=== PATIENT | female | born 1940 | race Caucasian/White ===

== ENCOUNTER 2017-11-17 16:10 | Outpatient (REF) | payer MEDICARE, OTHER, SELFPAY | END 2017-11-17 16:30 | LOC: LBN 16:10 | PROVIDERS: PCP Family Medicine; Visit Provider Family Medicine | DX: R35.0 Frequency of micturition (principal) | CPT/HCPCS: 87086 ==

== ENCOUNTER 2018-02-20 09:48 | Outpatient (CLI) | payer MEDICARE, OTHER, SELFPAY ==
[2018-02-20 13:09] LABS: HCT 40.1 % (36.0-46.0); HGB 12.7 g/dL (12.0-15.5); Mean Corp. HGB Concentration 31.7 g/dL (32.0-36.0); Mean Corpuscular Volume 97.8 fL (80-95); Mean Platelet Volume 9.8 fL (8.0-11.0); Platelet Count 224 x1000/uL (130-400); RBC Distribution Width 13.2 % (11.7-14.6); White Blood Cell Count 9.98 k/cumm (4.4-10.8)
[2018-02-20 13:17] LABS: Hemoglobin A1C 5.5 % (4.5-6.2)
[2018-02-20 14:12] LABS: ALT 19 U/L (12-78); AST 13 U/L (15-37); Albumin 3.5 g/dL (3.4-5.0); Alkaline Phosphatase 80 U/L (46-116); Anion Gap 8.2 mmol/L (3-11); BUN 10 mg/dL (7-18); Bilirubin, Total 0.5 mg/dL (0.2-1.0); CO2 31.8 mmol/L (21.0-32.0); Calcium 9.1 mg/dL (8.5-10.1); Chloride 96 mmol/L (98-107); Cholesterol 162 mg/dL (50-200); Glucose 91 mg/dL (70-100); HDL Cholesterol 48 mg/dL (40-60); LDL CHOLESTEROL 83 mg/dL (<100); Potassium 4.4 mmol/L (3.5-5.1); Sodium 136 mmol/L (136-145); TSH (W/Ref FT4) 1.88 uIU/mL (0.358-3.74); Total Protein 6.6 g/dL (6.4-8.2); Triglyceride 239 mg/dL (30-150)
== END 2018-02-20 10:08 ==
PROVIDERS: PCP Family Medicine; Visit Provider Family Medicine
DX: I47.1 Supraventricular tachycardia (principal); R73.09 Other abnormal glucose; J44.9 Chronic obstructive pulmonary disease, unspecified; R06.02 Shortness of breath; R00.2 Palpitations; F32.9 Major depressive disorder, single episode, unspecified
CPT/HCPCS: 36415; 80053; 80061; 83721; 85027; 83036; 84443

== ENCOUNTER 2018-11-22 10:14 | Outpatient (CLI) | payer OTHER, SELFPAY ==
--- NOTE | 2018-11-22 15:29 | DI.RAD_ITS ---
SYMPTOMS/DIAGNOSIS: UPPER BACK LEFT-SIDED PAIN, M54.9 PA AND LATERAL CHEST: Comparison is made with October,. The heart is enlarged, unchanged. The aorta shows calcification and tortuosity. The lungs are clear. No thoracic compression fractures are seen. IMPRESSION: Cardiomegaly. No acute abnormality.
[2018-11-22 17:23] LABS: HCT 38.8 % (36.0-46.0); HGB 12.2 g/dL (12.0-15.5); Mean Corp. HGB Concentration 31.4 g/dL (32.0-36.0); Mean Corpuscular Hemoglobin 30.5 pg (27.0-33.0); Mean Platelet Volume 10.5 fL (8.0-11.0); Platelet Count 226 x1000/uL (130-400); RBC Distribution Width 13.1 % (11.7-14.6); White Blood Cell Count 8.16 k/cumm (4.4-10.8)
[2018-11-22 17:40] LABS: ALT 14 U/L (14-59); AST 10 U/L (15-37); Albumin 3.4 g/dL (3.4-5.0); Alkaline Phosphatase 66 U/L (46-116); BUN 14 mg/dL (7-18); Bilirubin, Total 0.6 mg/dL (0.2-1.0); CREATININE 0.99 mg/dL (0.55-1.02); Calcium 8.9 mg/dL (8.5-10.1); Chloride 98 mmol/L (98-107); Estimated GFR 54.11 (mL/min/1.73m2); Glucose 107 mg/dL (70-100); Potassium 3.7 mmol/L (3.5-5.1); Sodium 137 mmol/L (136-145); Total Protein 6.3 g/dL (6.4-8.2)
[2018-11-22 18:45] LABS: ESR 16 mm/hr (0-30)
== END 2018-11-22 10:34 ==
PROVIDERS: PCP Family Medicine; Visit Provider Internal Medicine
DX: M54.9 Dorsalgia, unspecified (principal); I51.7 Cardiomegaly; I10 Essential (primary) hypertension
CPT/HCPCS: 36415; 80053; 85027; 85652; 71046

== ENCOUNTER 2019-02-20 10:27 | Outpatient (CLI) | payer OTHER, SELFPAY ==
[2019-02-20 13:05] LABS: Hemoglobin A1C 5.5 % (4.5-6.2)
[2019-02-20 14:36] LABS: ALT 13 U/L (14-59); AST 12 U/L (15-37); Albumin 3.4 g/dL (3.4-5.0); Alkaline Phosphatase 82 U/L (46-116); Anion Gap 9.5 mmol/L (3-11); BUN 18 mg/dL (7-18); Bilirubin, Total 0.7 mg/dL (0.2-1.0); CO2 30.5 mmol/L (21.0-32.0); CREATININE 1.01 mg/dL (0.55-1.02); Calcium 8.8 mg/dL (8.5-10.1); Calculated LDL 42 mg/dL; Chloride 99 mmol/L (98-107); Cholesterol 156 mg/dL (<200); Estimated GFR 52.87 (mL/min/1.73m2); Glucose 106 mg/dL (74-106); HDL Cholesterol 38 mg/dL (40-60); Potassium 3.9 mmol/L (3.5-5.1); Sodium 139 mmol/L (136-145); Total Protein 6.5 g/dL (6.4-8.2); Triglyceride 380 mg/dL (<150)
== END 2019-02-20 10:47 ==
PROVIDERS: PCP Family Medicine; Visit Provider Family Medicine
DX: E11.9 Type 2 diabetes mellitus without complications (principal); I10 Essential (primary) hypertension; J44.9 Chronic obstructive pulmonary disease, unspecified
CPT/HCPCS: 36415; 80053; 80061; 83036

== ENCOUNTER 2020-04-24 14:15 | Outpatient (CLI) | payer OTHER, SELFPAY ==
--- NOTE | 2020-04-24 14:15 | RT.EKG_ITS ---
APPROVED REPORT Exam: Resting ECG Patient Location: O HR:123 bpm ECG Measurements Heart Rate 123 AXIS [place] [id number] P [id number] QRSd 104 QRS 4 QT 327 T 144 QTc 468 Conclusion Atrial fibrillation...V-rate 96-150, irreg A-activity Nonspecific repol abnormality, lateral leads...ST dep, T neg, I aVL V5 V6
== END 2020-04-24 14:16 | disposition home or self-care (01) ==
LOC: DI.CM 14:15
PROVIDERS: PCP Family Medicine; Visit Provider Family Medicine
DX: R94.31 Abnormal electrocardiogram [ECG] [EKG] (principal); I48.91 Unspecified atrial fibrillation
CPT/HCPCS: 93010

== ENCOUNTER 2020-04-24 21:22 | Outpatient (REF) | payer OTHER, SELFPAY ==
[2020-04-24 21:40] LABS: Abs Immature Grans 0.01 10^3/uL (0.0-0.06); Absolute Basophil Count 0.04 10^3/uL (0.0-0.2); Absolute Eosinophil Count 0.08 10^3/uL (0.0-0.7); Absolute Lymphocyte Count 1.11 10^3/uL (1.2-3.4); Absolute Neutrophil Count 6.06 10^3/uL (1.2-6.7); Basophils % 0.5; HCT 42.7 % (36.0-46.0); HGB 13.5 g/dL (11.2-15.7); Immature Grans % 0.1; Lymphocytes % 14.1; MCH 30.8 pg (27.0-33.0); MCHC 31.6 % (32.0-36.0); MCV 97.3 fL (80-95); MPV 10.9 fL (8.0-11.0); Monocytes % 7.6; Neutrophils % 76.7; Nucleated RBC 0 %; Platelet Count 204 10^3/uL (130-400); RBC 4.39 10^6/uL (3.93-5.22); RDW 13.3 % (11.7-14.6); RDW-SD 47.9 fL
[2020-04-24 21:52] LABS: Bilirubin Negative (Negative); Blood Negative (Negative); Clarity Clear (Clear); Glucose Negative (Negative); Ketones Negative (Negative); Leukocyte Esterase Negative (Negative); Nitrite Negative (Negative); Urobilinogen 0.2 EU/dL (Up TO 0.2); pH 6.5 (5-8)
[2020-04-24 22:14] LABS: Hemoglobin A1C 5.6 % (<5.7)
[2020-04-24 22:22] LABS: ALT 14 U/L (14-59); AST 10 U/L (15-37); Albumin 3.3 g/dL (3.4-5.0); Alkaline Phosphatase 82 U/L (46-116); Anion Gap 6.3 mmol/L (3-11); BUN 14 mg/dL (7-18); Bilirubin, Total 0.8 mg/dL (0.2-1.0); CO2 32.7 mmol/L (21.0-32.0); Calcium 8.5 mg/dL (8.5-10.1); Chloride 99 mmol/L (98-107); Estimated GFR 53.35 (mL/min/1.73m2); Glucose 120 mg/dL (74-106); Magnesium 1.7 mg/dL (1.8-2.4); Potassium 3.6 mmol/L (3.5-5.1); Sodium 138 mmol/L (136-145); TSH (W/Ref FT4) 1.77 uIU/mL (0.36-3.74); Total Protein 6.4 g/dL (6.4-8.2)
[2020-04-24 22:49] LABS: Calculated LDL 88 mg/dL (<100); Cholesterol 159 mg/dL (<200); HDL Cholesterol 41 mg/dL (40-60); Triglyceride 150 mg/dL (<150)
== END 2020-04-24 21:23 | disposition home or self-care (01) ==
LOC: LBN 21:22
PROVIDERS: PCP Family Medicine; Visit Provider Family Medicine
DX: E11.9 Type 2 diabetes mellitus without complications (principal); R00.0 Tachycardia, unspecified; R19.7 Diarrhea, unspecified; R53.83 Other fatigue; M54.5 Low back pain; T50.B95A Adverse effect of other viral vaccines, initial encounter
CPT/HCPCS: 80053; 80061; 81003; 83036; 83735; 84443; 85025

== ENCOUNTER 2020-05-08 14:05 | Outpatient (CLI) | payer OTHER, SELFPAY ==
--- NOTE | 2020-05-08 14:00 | RT.EKG_ITS ---
APPROVED REPORT Exam: Resting ECG Patient Location: O HR:108 bpm ECG Measurements Heart Rate 108 [address] [place] [id number] P [id number] QRSd 100 QRS 22 QT 312 T 103 QTc 420 Conclusion Atrial fibrillation...V-rate 84-150, irreg A-activity Nonspecific T abnormalities, lateral leads...T <-0.10mV, I aVL V5 V6
== END 2020-05-08 14:06 | disposition home or self-care (01) ==
LOC: DI.CM 14:05
PROVIDERS: PCP Family Medicine; Visit Provider Family Medicine
DX: R94.31 Abnormal electrocardiogram [ECG] [EKG] (principal)
CPT/HCPCS: 93010

== ENCOUNTER 2020-05-15 15:46 | Inpatient (IN) | payer OTHER, SELFPAY ==
[2020-05-15] VITALS (45 sets, daily range): BP systolic 105–153; BP diastolic 52–93; PULSE 72–133; RESP 19–32; TEMP 35.8–36.8; O2SAT 82–97
--- NOTE | 2020-05-15 15:45 | DI.CT_ITS ---
EXAM: CT CHEST PE CTA CLINICAL HISTORY: Chest Pain SOB, R/O PE. TECHNIQUE: Imaging Protocol: Axial CT angiography was performed with multi-slice acquisition and mu lti-planar and/or 3D reconstructions. CONTRAST MATERIAL: Intravenous: Omnipaque 350 Contrast volume:100 mL COMPARISON: CT UPPER ABD WITH CONTRAST (P) from 10/09/2008 CT UPPER ABD WITH CONTRAST (P) from 07/19/2011 CT ABD PELVIS WITH CONTRAST from 11/10/2014 FINDINGS: The examination is limited due to patient motion artifact. Tracheobronchial tree: Patent where visualized. Pulmonary parenchyma: No consolidation or dominant measurable mass. No architectural distortion. Pare nchymal evaluation is limited due to patient motion artifact. Pulmonary Arteries: No evidence of filling defect to suggest pulmonary emboli. There is suboptimal as sessment of the distal pulmonary arteries due to the patient motion artifact. Mediastinum and Jennifer: No dominant adenopathy or fluid collection. Small hiatal hernia. Visualized thyroid gland: Unremarkable. Pleura: No effusion or pneumothorax. Heart: Cardiomegaly. Moderate coronary artery calcification. No pericardial effusion. No evidence of right heart strain. Aorta: Thoracic aorta non-dilated. Moderately severe atherosclerosis. Upper abdomen: Proximal aspect of an abdominal aortic stent is noted. Cholelithiasis. No biliary d uctal dilatation. Stable bilateral adrenal nodules. Stable right upper lobe renal cyst. No follow- up recommended on either adrenal or renal lesions. Soft tissues: Unremarkable. Bones: Within normal limits. IMPRESSION: 1. Examination limited by patient motion artifact. 2. No evidence of pulmonary embolism. There is suboptimal assessment of the distal pulmonary arterie s due to the patient motion artifact. 3. No evidence of thoracic aortic dissection. 4. Cardiomegaly without evidence of right heart strain. RADIATION DOSE DELIVERED: 402.12mGy.cm Total DLP DATA REPOSITORY: All CT scans at this facility are submitted to the National Radiology Data Registry (NRDR) Dose Index Registry (DIR) with the [employer] (A[employer]). RADIATION OPTIMIZATION: All CT scans at this facility use at least one of these dose optimization te chniques: automated exposure control; mA and/or kV adjustment per patient size (includes targeted exa ms where dose is matched to clinical indication); or iterative reconstruction.
--- NOTE | 2020-05-15 15:45 | RT.EKG_ITS ---
APPROVED REPORT Exam: Resting ECG Patient Location: E HR:107 bpm ECG Measurements Heart Rate 107 [address] [place] [id number] P [id number] QRSd 100 QRS 56 QT 376 T 57 QTc 502 Conclusion Atrial fibrillation...V-rate 78-140, irreg A-activity Nonspecific T abnormalities, lateral leads...T <-0.10mV, I aVL V5 V6 Prolonged QT interval...QTc >500mS I have reviewed and interpreted ECG and agree with software generated interpretation. Physician: no stemi
--- NOTE | 2020-05-15 16:02 | W.ED.GENAD ---
Discharge Plan Disposition Patient Disposition: [facility] INPATIENT Condition: Stable Discharge Details Clinical Impression: Congestive heart failure, Hypoxia Admit Date/Time: 05/15/20 19:18 Admit Provider: Rosendo Seals Attending Provider: Rosedno Seals Primary Care Provider: Carolin Salinas ED Provider: Jyotsna Rodriguez Medical Decision Making 79-year-old female presents to the ED. She has a chief complaint of worsening shortness of breath and dyspnea on exertion which has been worsening over the last week. She was seen by PCP, Dr. Mosqueda today for follow-up regarding her atrial fibrillation. She reports that she has been complaining of chest pain at rest, headache, dizziness and/or wheezing. On initial exam she does appear to have mild increased work of breathing, with a respiratory rate of 28, her O2 sat initially was 82% on room air she was placed on 2 L nasal cannula brought her O2 sat up to 97%. She denies any chest pain, productive cough, nausea vomiting diarrhea at this time. Her daughter does report some increased frequency with urination which she noticed yesterday. Mom states that she was slightly not herself prior to her primary care appointment they did place her on some oxygen at the clinic and her mentation improved. Her daughter also reports some mild increase bilateral lower extremity swelling over the last week, on initial exam is approximately 1+ bilaterally. She has a past medical history of hypertension, atrial fibrillation, hyperlipidemia, COPD, SVT, vascular insufficiency with testing, surgical history includes appendectomy, colectomy, hemicolectomy, AAA repair. She is currently on demand, and has been recent changes in her blood pressure medication 25 mg metoprolol and 120 mg diltiazem daily. At this time work-up ordered including CBC, CMP, serial troponins, EKG, BMP, CT chest PE protocol to rule out PE, pneumonia, Urinalysis Differential diagnosis includes but not limited to, CAD, pneumonia, PE, viral URI, UTI, AAA, CHF exacerbation. BNP is elevated at 3128, no leukocytosis, sodium is 137, potassium 3.7, BUN is 13, creatinine 1.0 GFR is 53.35. Urinalysis is negative for leukocytes or nitrites no evidence of UTI. Patient is Covid negative. CR XR CHEST 2V PA LATERAL 11/22/2018 3:23 PM FINDINGS: Pulmonary arteries: No right or left main, lobar or proximal segmental pulmonary arterial emboli are detected. Suboptimal assessment distal to this level due to bolus timing/motion with distal segmental/subsegmental pulmonary emboli not excluded, particularly at the lung bases. Aorta: Atherosclerotic calcifications involve the aortic arch with no evidence of thoracic aortic aneurysm. No aortic dissection. Lungs: Lung parenchyma is grossly clear throughout with no mass or consolidation identified. Pleural spaces: No pneumothorax or pleural effusion seen. Heart: The heart is enlarged and there is no evidence of pericardial effusion or right heart strain. Heart: Heart size is normal and there is no evidence of pericardial effusion or right heart strain. Lymph nodes: No mediastinal or hilar mass or adenopathy detected. Bones/joints: Thoracic spondylosis with no acute osseous lesions detected at thoracic levels. Soft tissues: Limited images through the upper abdomen demonstrate small stones layering along the dependent margin of the gallbladder and aortic stent graft involving the upper abdominal aorta. IMPRESSION: 1. No right or left main, lobar or proximal segmental pulmonary arterial emboli are detected. Suboptimal assessment distal to this level due to bolus timing/motion with distal segmental/subsegmental pulmonary emboli not excluded, particularly at the lung bases. 2. Cardiomegaly also noted with no evidence of right cardiac strain or other acute cardiopulmonary process detected. Thank you for allowing us to participate in the care of your patient Patient was able to get up to bedside commode with assistance to obtain urinalysis per staff radiation therapist. 182: Discussed recommendation for admission for CHF exacerbation with patient and daughter who verbalized understanding they are agreeable to the plan of care at this time will page hospitalist. I did place patient on a room air trial while laying in bed she did de-sat to approximately 88% on room air while lying in the bed. 182: Hospitalist haydee. Spoke with Dr. Seals who is on for hospitalist team he agrees to accept patient if repeat troponin is negative he does recommend a Quijano and I will give patient her 120 mg of diltiazem which he normally takes twice daily now. He does prefer admission to med surg for first troponin is negative. Macie ordered. She did not take her night medications including diltiazem, which I will order her nightly dose 120mg PO now, Per staff radiation therapist patient has soaked through 2 depends and bed since Raquel. 1915: Repeat troponin is within normal limits less than 0.05, EKG was completed and is unchanged from previous. Hospitalist paged to relay negative Trop, and to confirm admission. 2005: Patient transported up to floor with staff radiation therapist. HPI General Mode of arrival: wheelchair. Date/Time Provider Initiated Documentation: 05/15/20 15:58. Limitations to Documentation: no limitations. Information obtained by: patient and family (Daughter). HPI Narrative: 79-year-old female presents to the ED. She has a chief complaint of worsening shortness of breath and dyspnea on exertion which has been worsening over the last week. She was seen by PCP today for follow-up regarding her atrial fibrillation. She reports that she has been complaining of chest pain at rest, headache, dizziness and/or wheezing. On initial exam she does appear to have mild increased work of breathing, with a respiratory rate of 28, her O2 sat initially was 82% on room air she was placed on 2 L nasal cannula brought her O2 sat up to 97%. She denies any chest pain, productive cough, nausea vomiting diarrhea at this time. Her daughter does report some increased frequency with urination which she noticed yesterday. Mom states that she was slightly not herself prior to her primary care appointment they did place her on some oxygen at the clinic and her mentation improved. Her daughter also reports some mild increase bilateral lower extremity swelling over the last week, on initial exam is approximately 1+ bilaterally. She has a past medical history of hypertension, atrial fibrillation, hyperlipidemia, COPD, SVT, vascular insufficiency with testing, surgical history includes appendectomy, colectomy, hemicolectomy, AAA repair. She is currently on demand, and has been recent changes in her blood pressure medication 25 mg metoprolol and 120 mg diltiazem daily. Related Data Home Medications Medication Instructions Recorded Confirmed acetaminophen [Tylenol] 650 mg Q8H PRN PRN 08/10/14 05/15/20 Lactobacillus acidophilus 1 ea PO BID 03/11/15 05/15/20 Immodium 1 - 2 cap PO PRN 06/12/15 05/15/20 aspirin [Aspir 81] 81 mg PO DAILY tab-cap 11/16/16 05/15/20 albuterol sulfate 90 mcg/actuation 2 puff IH Q4H PRN #18 gm 02/13/20 05/15/20 aerosol inhaler risperidone 2 mg tablet 2 mg PO HS #90 tab 03/24/20 05/15/20 sertraline 50 mg tablet 50 mg PO DAILY #90 tab 03/24/20 05/15/20 trazodone 100 mg tablet 100 mg PO HS #90 tab 03/24/20 05/15/20 lorazepam 0.5 mg tablet 0.5 mg PO BID #180 tab 04/07/20 05/15/20 risperidone 0.5 mg tablet See Rx Instructions PO .COMPLEX 04/07/20 05/15/20 #180 tab fluticasone propionate 220 1 puff IH BID #12 gm 04/14/20 05/15/20 mcg/actuation HFA aerosol inhaler apixaban 5 mg tablet 5 mg PO BID #180 tab 04/24/20 05/15/20 diltiazem HCl 120 mg capsule,24 120 mg PO DAILY #90 cap 05/08/20 05/15/20 hr,extended release metoprolol tartrate 50 mg tablet 25 mg PO BID #180 tab 05/08/20 05/15/20 Previous Rx's Medication Instructions Recorded albuterol sulfate 90 mcg/actuation 2 puff IH Q4H PRN #18 gm 02/13/20 aerosol inhaler risperidone 2 mg tablet 2 mg PO HS #90 tab 03/24/20 sertraline 50 mg tablet 50 mg PO DAILY #90 tab 03/24/20 trazodone 100 mg tablet 100 mg PO HS #90 tab 03/24/20 lorazepam 0.5 mg tablet 0.5 mg PO BID #180 tab 04/07/20 risperidone 0.5 mg tablet See Rx Instructions PO .COMPLEX 04/07/20 #180 tab fluticasone propionate 220 1 puff IH BID #12 gm 04/14/20 mcg/actuation HFA aerosol inhaler apixaban 5 mg tablet 5 mg PO BID #180 tab 04/24/20 diltiazem HCl 120 mg capsule,24 120 mg PO DAILY #90 cap 05/08/20 hr,extended release metoprolol tartrate 50 mg tablet 25 mg PO BID #180 tab 05/08/20 Allergies Allergy/AdvReac Type Severity Reaction Status Date / Time pneumococcal 7-valent Allergy Mild Local Verified 05/15/20 14:35 conjugate to reaction [From Prevnar] amoxicillin trihydrate AdvReac Intermediate VOMITING Verified 05/15/20 14:35 [From Augmentin] potassium clavulanate AdvReac Intermediate VOMITING Verified 05/15/20 14:35 [From Augmentin] Review of Systems Narrative: Constitutional: Negative for weight loss, alert and oriented, well groomed, normal body habitus, appears dyspneic, increased work of breathing. HEENT: Denies trauma, blurry vision, nasal discharge, sore throat, trouble swallowing. Chest: Denies chest pain currently, palpitations, does have history of atrial fibrillation, hypertension. Respiratory: Denies cough, hemoptysis. Positive shortness of breath, denies productive cough. GI: Denies abdominal pain, nausea, vomiting, diarrhea, constipation. : Denies dysuria, hematuria, flank pain, rectal bleeding. Positive urinary frequency. Neuro: Denies blurry vision, syncope, or facial numbness. Hematologic: Denies easy bruising, intolerance to heat or cold, hair loss. [facility] Medical History Abdominal aortic aneurysm (05/31/12) 4.4 cm 07/20 s/p repair 2012 Anxiety (07/25/17) Arm skin lesion, left (12/09/15) Atherosclerosis Atherosclerosis Bruit Bruit of left carotid artery mild-mod. plaque per [place] Complete edentulism, unspecified COPD (chronic obstructive pulmonary disease) COPD (chronic obstructive pulmonary disease) with emphysema Coronary disease CVD (cardiovascular disease) Dependence on supplemental oxygen Depression a. with psychotic features Diarrhea (11/19/14) 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 02/18-09/19, normal metanephrines, normal dexamethasone suppression. 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 hypokalemia b. 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 Positive neutrophil AB mostlikely indicating ulcerative colitis Palpitations 08/26/14; FREQ PVC BY HOLTER Palpitations Right pontine CVA [facility]-01/30/16; 8X5 mm Seborrheic keratosis (01/01/16) punch/shave biopsy skin of left arm Seborrheic keratosis (01/01/16) Shortness of breath (10/14/16) SVT (supraventricular tachycardia) (09/15/14) Tubular adenoma of colon (03/04/14) Urinary frequency (08/21/15) Vascular insufficiency of intestine (06/12/15) Weight loss (04/02/14) Surgical History Appendectomy Biopsy, Soft Tissue (01/01/16) Punch/shave biospy of skin of left arm, seborrheic keratosis Colectomy (09/18/14) DR. GRAJEDA Hemicolectomy [facility]; 09/15/14; RIGHT History of bilateral ligation of fallopian tubes History of partial colectomy 09/15/14 right hemicolectomy w/ileocolic anastomosis History of partial surgical removal of colon (09/15/14) Ligation of fallopian tube S/P AAA repair S/P tubal ligation Status post appendectomy Family History Mother Essential hypertension Alzheimer's disease Father Heart disease Breast cancer Prostate cancer Sister Myocardial infarction Sister Myocardial infarction Brother Cancer Sister No problems noted. Sister No problems noted. Brother Substance abuse Brother Substance abuse Brother Substance abuse Cancer Son No problems noted. Daughter No problems noted. Social History Smoking/Tobacco Use Status: Former Tobacco Use Smoking risk assessment performed?: Yes Alcohol Intake: never Drug use: Never Substance use type: does not use Household members: other Details: 4 Pets and animals: Yes Pets and animals: cat(s) and dog(s) Current gender identity: decline to answer What is your relationship status?: refused to answer How often do you talk on the phone with friends or family?: decline to answer How often do you get together with friends or relatives?: decline to answer How often do you attend rastafarian or restorationist services?: decline to answer Do you belong to any clubs or organized social groups?: decline to answer Panel score (0-1 are the most socially isolated patients): 0 What type of physical activity do you participate in: none Lelo/Catholic: No preference Special lelo needs: No Do you feel safe at home: Yes Do you feel safe in your relationship?: Yes Exam Narrative Exam Narrative: Constitutional: Alert and oriented . Somewhat confused, slow to answer questions. Appears stated age. Normal body habitus. And stiff neck and exhibiting shortness of breath with increased work of breathing Head: Normocephalic, no trauma. Eyes: Pupils PERRLA, Red reflex noted, EOM's intact. Eyelids symmetrical without lesions, discharge, or swelling. Chest: Irregularly irregular rhythm, normal S1, S2, distal pulses intact. Resp: Lungs clear to auscultation bilaterally, no wheezes, rales, or rhonchi. Significant dyspnea, respiratory rate 29. Musculoskeletal: Unable to assess gait 5/5 strength to all four extremities. He has a trace 1+ pitting edema, swelling to her bilateral lower extremity Skin: No suspicious rashes or lesions. Capillary refill less than 2 sec. has some old healing abrasions noted to her left elbow Neurologic: Cranial nerves II-XII intact. Alert and oriented x 3. Hematologic/Lymphatic: No ecchymosis, no lymphadenopathy.
[2020-05-15] MEDS: Normal Saline Flush 10 ML SYR IVP ×3 (16:05→23:29)
[2020-05-15 16:16] LABS: Abs Immature Grans 0.02 10^3/uL (0.0-0.06); Absolute Basophil Count 0.04 10^3/uL (0.0-0.2); Absolute Eosinophil Count 0.08 10^3/uL (0.0-0.7); Absolute Lymphocyte Count 1.43 10^3/uL (1.2-3.4); Absolute Monocyte Count 0.78 10^3/uL (0.1-0.8); Absolute Neutrophil Count 6.78 10^3/uL (1.2-6.7); Basophils % 0.4; Eosinophils % 0.9; HCT 44.3 % (36.0-46.0); HGB 13.6 g/dL (11.2-15.7); Immature Grans % 0.2; Lymphocytes % 15.7; MCH 29.6 pg (27.0-33.0); MCHC 30.7 % (32.0-36.0); MCV 96.5 fL (80-95); MPV 10.3 fL (8.0-11.0); Monocytes % 8.5; Neutrophils % 74.3; Nucleated RBC 0 %; Platelet Count 178 10^3/uL (130-400); RBC 4.59 10^6/uL (3.93-5.22); RDW 13.4 % (11.7-14.6); RDW-SD 47.9 fL; WBC 9.13 10^3/uL (4.4-10.8)
[2020-05-15 16:28] LABS: PTT Activated 23.9 sec (21.0-27.5); Prothrombin Time 10.2 sec (9.3-11.0)
[2020-05-15 16:34] LABS: ALT 17 U/L (14-59); AST 8 U/L (15-37); Albumin 3.3 g/dL (3.4-5.0); Alkaline Phosphatase 89 U/L (46-116); Anion Gap 5.7 mmol/L (3-11); BUN 13 mg/dL (7-18); Bilirubin, Total 0.8 mg/dL (0.2-1.0); CO2 32.3 mmol/L (21.0-32.0); Calcium 8.5 mg/dL (8.5-10.1); Chloride 99 mmol/L (98-107); Estimated GFR 53.35 (mL/min/1.73m2); Glucose 105 mg/dL (74-106); Magnesium 1.8 mg/dL (1.8-2.4); NT-proBNP 3128 pg/mL (<300); Potassium 3.7 mmol/L (3.5-5.1); Sodium 137 mmol/L (136-145); Total Protein 6.8 g/dL (6.4-8.2); Troponin I < 0.05 ng/mL (<0.06)
[2020-05-15 16:55] LABS: Bilirubin Negative (Negative); Blood Negative (Negative); Clarity Clear (Clear); Glucose Negative (Negative); Ketones Negative (Negative); Leukocyte Esterase Negative (Negative); Nitrite Negative (Negative); Urobilinogen 0.2 EU/dL (Up TO 0.2)
[2020-05-15] MEDS: Furosemide 40 MG/4 ML VIAL IVP (16:56)
[2020-05-15 17:37] LABS: COVID-19 PCR Negative (Negative); Influenza A PCR Negative (Negative); Influenza B PCR Negative (Negative); RSV PCR Negative (Negative)
[2020-05-15] MEDS: Omnipaque 350 MG/ML 50 ML BTL IJ ×2 (17:42→17:43)
[2020-05-15] MEDS: Normal Saline - Diluent 50 ML VIAL IV (17:42)
--- NOTE | 2020-05-15 17:54 | DI.VRAD_ITS ---
PROCEDURE INFORMATION: Exam: CT Angiography Chest With Contrast Exam date and time: 05/15/2020 5:35 PM Age: 79 years old Clinical indication: Shortness of breath; Patient HX: Chest pain, SOB TECHNIQUE: Imaging protocol: Computed tomographic angiography of the chest with contrast. 3D rendering (Not supervised by radiologist): MIP and/or 3D reconstructed images were created by the technologist. Contrast material: OMNIPAQUE 350; Contrast volume: 100 ml; Contrast route: INTRAVENOUS (IV); COMPARISON: CR XR CHEST 2V PA LATERAL 11/22/2018 3:23 PM FINDINGS: Pulmonary arteries: No right or left main, lobar or proximal segmental pulmonary arterial emboli are detected. Suboptimal assessment distal to this level due to bolus timing/motion with distal segmental/subsegmental pulmonary emboli not excluded, particularly at the lung bases. Aorta: Atherosclerotic calcifications involve the aortic arch with no evidence of thoracic aortic aneurysm. No aortic dissection. Lungs: Lung parenchyma is grossly clear throughout with no mass or consolidation identified. Pleural spaces: No pneumothorax or pleural effusion seen. Heart: The heart is enlarged and there is no evidence of pericardial effusion or right heart strain. Heart: Heart size is normal and there is no evidence of pericardial effusion or right heart strain. Lymph nodes: No mediastinal or hilar mass or adenopathy detected. Bones/joints: Thoracic spondylosis with no acute osseous lesions detected at thoracic levels. Soft tissues: Limited images through the upper abdomen demonstrate small stones layering along the dependent margin of the gallbladder and aortic stent graft involving the upper abdominal aorta. IMPRESSION: 1. No right or left main, lobar or proximal segmental pulmonary arterial emboli are detected. Suboptimal assessment distal to this level due to bolus timing/motion with distal segmental/subsegmental pulmonary emboli not excluded, particularly at the lung bases. 2. Cardiomegaly also noted with no evidence of right cardiac strain or other acute cardiopulmonary process detected. Dictated and Authenticated by: Vaibhav Veloz MD. Ordering:LISA Goyal MD
--- NOTE | 2020-05-15 18:45 | RT.EKG_ITS ---
APPROVED REPORT Exam: Resting ECG Patient Location: E HR:109 bpm ECG Measurements Heart Rate 109 [address] [place] [id number] P [id number] QRSd 113 QRS 55 QT 310 T 114 QTc 419 Conclusion Atrial fibrillation...V-rate 82-133, irreg A-activity Ventricular premature complex...V complex w/ short R-R interval Nonspecific T abnormalities, lateral leads...T <-0.10mV, I aVL V5 V6 I have reviewed and interpreted ECG and agree with software generated interpretation. There are no significant changes compared to prior EKG performed on 05/15/2020 at 16:03.
[2020-05-15 19:03] LABS: Troponin I < 0.05 ng/mL (<0.06)
[2020-05-15] MEDS: dilTIAZem 30 MG TAB 120 MG PO (19:05)
--- NOTE | 2020-05-15 22:08 | HPE_ITS ---
Date of service: 05/15/20 Time of Service: 22:08 Assessment and Plan Assessment and plan (1) Congestive heart failure: Status: Chronic Assessment and plan: Patient's last documented echocardiogram here at [facility] was from January 29, 2016 which at that time showed moderate LVH and normal left ventricular systolic function that was actually hyperdynamic with an ejection fraction of 65 to 70%. No regional wall motion abnormalities. At that time she had moderate mitral annular calcification. Right ventricular size was normal with hyperdynamic systolic function. I suspect that she probably develo ped acute congestive heart failure secondary to her underlying LVH and probably diastolic heart failure that was exacerbated by poorly controlled atrial fibrillation rate. Present time the goal be to control atrial fibrillation rate by adjustment of her metoprolol and/or her diltiazem. She still appears to be in some fluid overload at present time is demonstrated by bibasilar rales and trace of pedal edema. I did a [id number] ultrasound of her lungs and she has bilateral basilar B-lines and she has a small left-sided pleural effusion. [id number] echocardiogram shows overtly normal LV and RV function but she has significant mitral and aortic calcifications. I did not perform color-flow Doppler to evaluate for mitral regurgitation. I have ordered a formal echocardiogram to be performed in the morning. For tonight I will put her on a Lasix drip to try to diurese her further overnight. I will get follow-up labs in the morning including repeat proBNP and BMP and magnesium level to monitor electrolytes. She was given a supplement of potassium tonight in anticipation that her potassium level will drop with diuresis. Already she is starting to feel better since receiving the diuretics in the emergency department. Qualifiers: Heart failure type: unspecified Heart failure chronicity: unspecified Qualified Code(s): I50.9 - Heart failure, unspecified (2) Atrial fibrillation: Status: Chronic Assessment and plan: Continue diltiazem and metoprolol with adjustments to control atrial fibrillation rate. Continue apixaban for anticoagulation and stroke prevention. Continue low-dose aspirin for stroke prevention. Qualifiers: Atrial fibrillation type: unspecified Qualified Code(s): I48.91 - Unspecified atrial fibrillation (3) Hypertension: Status: Chronic Assessment and plan: Continue diltiazem and metoprolol as noted above. Once she is euvolemic consideration should be given for an NALINI inhibitor or angiotensin receptor sergio. Qualifiers: Hypertension type: essential hypertension Qualified Code(s): I10 - Essential (primary) hypertension History of Present Illness History of Present Illness Chief Complaint: Dyspnea Narrative: 79-year-old female who lives with her daughter and saw her primary care provider Dr. Salinas in follow-up today regarding her atrial fibrillation. Patient's been experiencing increasing exertional dyspnea for the past week along with fatigue and bilateral lower extremity edema. Per ER report there have been some complaints of chest pain but the patient denies to me any chest discomfort. Patient has a known history of coronary artery disease as well as hypertension and PSVT as well as atrial fibrillation, prior pontine CVA, hemicolectomy for tubular adenoma, and COPD. Apparently her PCP had been titrating her rate controlling medications for atrial fibrillation. She is chronically anticoagulated on apixaban. There is been no associated cough or sputum production or fever or chills and no known exposure to COVID-19. Patient's daughters also reported that the patient's been more confused lately. Upon arrival to the emergency department her oxygen saturation was 82% on room air but with supplemental oxygen per nasal cannula at 2 L/min per nasal cannula brought her oxygen saturation up to 96%. She has since been weaned down to 1 L/min per nasal cannula and has been maintaining her oxygen saturation in the low 90s. Work-up in the emergency department included routine labs EKG as well as a CTA of her chest. CBC showed no anemia and no leukocytosis. CMP showed normal electrolytes and normal BUN and creatinine. Serial troponin I levels have been less than 0.05x3 sets. proBNP was elevated at 3100. PT and PTT were within normal limits. No D-dimer was performed. Urinalysis was unremarkable. Nasopharyngeal swab was negative for SARS-CoV-2 as well as influenza and RSV. Serial EKGs demonstrated atrial fibrillation at a rate of 107 bpm with nonspecific intraventricular conduction delay. No acute ischemic or injury pattern. CTA of the chest showed no right or left main lobar or proximal segmental pulmonary arterial emboli however the assessment was suboptimal due to the timing of the bolus. Cardiomegaly present without right cardiac strain. Lung parenchyma is grossly clear with no mass or consolidation identified. Treatment emergency department included supplemental oxygen and parenteral furosemide 40 mg IV push. Patient's put out 600 mL of urine output so far. Fol ey catheters been placed. Patient is now admitted to the hospital for treatment and stabilization of her atrial fibrillation and CHF. Review of Systems All systems reviewed & are unremarkable except as noted in HPI and below Constitutional Constitutional: Reports fatigue, Denies fever(s) and Reports weakness Cardiovascular Cardiovascular: Denies chest pain, Denies chest pain at rest, Denies chest pain with activity, Reports rapid heart rate, Reports irregular heart rhythm, Reports leg edema, Reports lightheadedness, Denies radiating jaw, neck or arm pain, Reports dyspnea and Reports dyspnea on exertion Respiratory Respiratory: Denies chest congestion, Denies cough, Reports dyspnea and Reports dyspnea on exertion Gastrointestinal Gastrointestinal: Reports system reviewed and no additional complaints, except as documented Genitourinary Genitourinary: Reports system reviewed and no additional complaints, except as documented Musculoskeletal Musculoskeletal: Reports system reviewed and no additional complaints, except as documented Integumentary/Breasts Skin/Breast: Reports system reviewed and no additional complaints, except as documented Neurologic Neurologic: Reports weakness Endocrine Endocrine: Reports fatigue [facility] Medical History Abdominal aortic aneurysm (05/31/12) 4.4 cm 07/20 s/p repair 2013 Anxiety (07/25/17) Arm skin lesion, left (12/09/15) Atherosclerosis Atherosclerosis Bruit Bruit of left carotid artery mild-mod. plaque per U/S Complete edentulism, unspecified COPD (chronic obstructive pulmonary disease) COPD (chronic obstructive pulmonary disease) with emphysema Coronary disease CVD (cardiovascular disease) Dependence on supplemental oxygen Depression a. with psychotic features Diarrhea (11/19/14) 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 02/18-09/19, normal metanephrines, normal dexamethasone suppression. 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 hypokalemia b. 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 Positive neutrophil AB mostlikely indicating ulcerative colitis Palpitations 08/26/14; FREQ PVC BY HOLTER Palpitations Right pontine CVA [facility]-01/30/16; 8X5 mm Seborrheic keratosis (01/01/16) punch/shave biopsy skin of left arm Seborrheic keratosis (01/01/16) Shortness of breath (10/14/16) SVT (supraventricular tachycardia) (09/15/14) Tubular adenoma of colon (03/04/14) Urinary frequency (08/21/15) Vascular insufficiency of intestine (06/12/15) Weight loss (04/02/14) Surgical History Appendectomy Biopsy, Soft Tissue (01/01/16) Punch/shave biospy of skin of left arm, seborrheic keratosis Colectomy (09/18/14) DR. GRAJEDA Hemicolectomy [facility]; 09/15/14; RIGHT History of bilateral ligation of fallopian tubes History of partial colectomy 09/15/14 right hemicolectomy w/ileocolic anastomosis History of partial surgical removal of colon (09/15/14) Ligation of fallopian tube S/P AAA repair S/P tubal ligation Status post appendectomy Family History Mother Essential hypertension Alzheimer's disease Father Heart disease Breast cancer Prostate cancer Sister Myocardial infarction Sister Myocardial infarction Brother Cancer Sister No problems noted. Sister No problems noted. Brother Substance abuse Brother Substance abuse Brother Substance abuse Cancer Son No problems noted. Daughter No problems noted. Social History Smoking/Tobacco Use Status: Former Tobacco Use Smoking risk assessment performed?: Yes Alcohol Intake: never Drug use: Never Substance use type: does not use Household members: other Details: 4 Pets and animals: Yes Pets and animals: cat(s) and dog(s) Current gender identity: decline to answer What is your relationship status?: refused to answer How often do you talk on the phone with friends or family?: decline to answer How often do you get together with friends or relatives?: decline to answer How often do you attend congregation or episcopal services?: decline to answer Do you belong to any clubs or organized social groups?: decline to answer Panel score (0-1 are the most socially isolated patients): 0 What type of physical activity do you participate in: none Lelo/Adventist: No preference Special lelo needs: No Do you feel safe at home: Yes Do you feel safe in your relationship?: Yes Meds Home Medications and Allergies Allergies Allergy/AdvReac Type Severity Reaction Status Date / Time pneumococcal 7-valent Allergy Mild Local Verified 05/15/20 14:35 conjugate to reaction [From Prevnar] amoxicillin trihydrate AdvReac Intermediate VOMITING Verified 05/15/20 14:35 [From Augmentin] potassium clavulanate AdvReac Intermediate VOMITING Verified 05/15/20 14:35 [From Augmentin] Home Medications Medication Instructions Recorded Confirmed Type acetaminophen [Tylenol] 650 mg Q8H PRN PRN 08/10/14 05/15/20 History Lactobacillus acidophilus 1 ea PO BID 03/11/15 05/15/20 History Immodium 1 - 2 cap PO PRN 06/12/15 05/15/20 History aspirin [Aspir 81] 81 mg PO DAILY tab-cap 11/16/16 05/15/20 History albuterol sulfate 90 mcg/actuation 2 puff IH Q4H PRN #18 gm 02/13/20 05/15/20 Rx aerosol inhaler risperidone 2 mg tablet 2 mg PO HS #90 tab 03/24/20 05/15/20 Rx sertraline 50 mg tablet 50 mg PO DAILY #90 tab 03/24/20 05/15/20 Rx trazodone 100 mg tablet 100 mg PO HS #90 tab 03/24/20 05/15/20 Rx lorazepam 0.5 mg tablet 0.5 mg PO BID #180 tab 04/07/20 05/15/20 Rx risperidone 0.5 mg tablet See Rx Instructions PO .COMPLEX 04/07/20 05/15/20 Rx #180 tab fluticasone propionate 220 1 puff IH BID #12 gm 04/14/20 05/15/20 Rx mcg/actuation HFA aerosol inhaler apixaban 5 mg tablet 5 mg PO BID #180 tab 04/24/20 05/15/20 Rx diltiazem HCl 120 mg capsule,24 120 mg PO DAILY #90 cap 05/08/20 05/15/20 Rx hr,extended release metoprolol tartrate 50 mg tablet 25 mg PO BID #180 tab 05/08/20 05/15/20 Rx Exam Narrative Exam Narrative: Elderly female who is in no acute distress but she is puffing with her mouth when she breathes. When I ask her if she is short of breath she denies feeling dyspneic at present. She does not appear to be using accessory respiratory muscles. She is able to talk in complete sentences. Neck is supple nontender without overt JVD. She has bilateral carotid bruits. Lungs are clear anteriorly in the upper lung hamm but at the bases bilaterally she has rales. No rhonchi and no wheezes. Heart is irregularly irregular with this is soft systolic murmur at the apex. No thrill or heave. Abdomen is obese soft nontender. She has a well-healed midline surgical scar. No bruits no palpable masses. Lower extremities without peripheral cyanosis. Feet are warm and dry. She has a trace of pedal and ankle edema. Pedal pulses are present but diminished bilaterally. She has thickened hypertrophic toenails. Neuro exam grossly intact no facial asymmetry no dysarthric speech full extraocular motion intact. Normal movement of upper and lower extremities. Babinski on the right is equivocal due to withdrawal. Babinski is absent on the left. Results Labs Result diagrams: 05/15/20 16:05 05/15/20 16:05 Labs: Laboratory Results - last 24 hr 05/15/20 05/15/20 05/15/20 16:05 16:05 16:05 WBC 9.13 RBC 4.59 Hgb 13.6 Hct 44.3 MCV 96.5 H MCH 29.6 MCHC 30.7 L RDW 13.4 Plt Count 178 MPV 10.3 Immature Gran % 0.2 Neutrophils % 74.3 Lymphocytes % 15.7 Monocytes % 8.5 Eosinophils % 0.9 Basophils % 0.4 Nucleated RBC % 0 Absolute Neutrophils 6.78 H Absolute Lymphocytes 1.43 Absolute Monocytes 0.78 Absolute Eosinophils 0.08 Absolute Basophils 0.04 PT 10.2 INR 1.0 APTT 23.9 Sodium 137 Potassium 3.7 Chloride 99 Carbon Dioxide 32.3 H Anion Gap 5.7 BUN 13 Creatinine 1.0 Estimated GFR/1.73 m2 53.35 Glucose 105 Calcium 8.5 Magnesium 1.8 Total Bilirubin 0.8 AST 8 L ALT 17 Alkaline Phosphatase 89 Troponin I < 0.05 NT-Pro-B Natriuret Pep 3128 H Total Protein 6.8 Albumin 3.3 L Urine Color Urine Clarity Urine pH Ur Specific [place] Urine Protein Urine Ketones Urine Blood Urine Nitrite Urine Bilirubin Urine Urobilinogen Ur Leukocyte Esterase Urine Glucose COVID-19 Source SARS-CoV-2 (PCR) Influenza Type A (PCR) Influenza Type B (PCR) RSV (PCR) 05/15/20 05/15/20 05/15/20 16:43 16:56 18:40 WBC RBC Hgb Hct MCV MCH MCHC RDW Plt Count MPV Immature Gran % Neutrophils % Lymphocytes % Monocytes % Eosinophils % Basophils % Nucleated RBC % Absolute Neutrophils Absolute Lymphocytes Absolute Monocytes Absolute Eosinophils Absolute Basophils PT INR APTT Sodium Potassium Chloride Carbon Dioxide Anion Gap BUN Creatinine Estimated GFR/1.73 m2 Glucose Calcium Magnesium Total Bilirubin AST ALT Alkaline Phosphatase Troponin I < 0.05 NT-Pro-B Natriuret Pep Total Protein Albumin Urine Color Yellow Urine Clarity Clear Urine pH 6.0 Ur Specific [place] 1.020 Urine Protein Negative Urine Ketones Negative Urine Blood Negative Urine Nitrite Negative Urine Bilirubin Negative Urine Urobilinogen 0.2 Ur Leukocyte Esterase Negative Urine Glucose Negative COVID-19 Source Nasopharyx SARS-CoV-2 (PCR) Negative Influenza Type A (PCR) Negative Influenza Type B (PCR) Negative RSV (PCR) Negative Last Vital Signs Temp 36.6 C 05/15/20 20:45 Pulse 89 05/15/20 20:55 Resp 20 05/15/20 20:45 BP 121/73 05/15/20 20:45 Pulse Ox 92 05/15/20 20:45 COVID-19 Screening Have you, or household traveled for leisure in last 14 days?: No Had IN PERSON contact w/suspected or confirmed C-19 person: No
[2020-05-15 22:58] LABS: Troponin I < 0.05 ng/mL (<0.06)
[2020-05-15] MEDS: Apixaban 5 MG TAB PO (23:30)
[2020-05-15] MEDS: risperiDONE 1 MG TAB 2 MG PO (23:30)
[2020-05-15] MEDS: LORazepam 0.5 MG TAB PO (23:31)
[2020-05-15] MEDS: Metoprolol 50 MG TAB 25 MG PO (23:31)
[2020-05-15] MEDS: traZODone 100 MG TAB PO (23:32)
[2020-05-15] MEDS: Lactobacillus Acidophilus CAP 1 CAP PO (23:32)
[2020-05-16 03:40] VITALS: BP 106/59; PULSE 90; RESP 17; TEMP 36.7; O2SAT 90
[2020-05-16] MEDS: Metoprolol 50 MG TAB 25 MG PO ×4 (04:17→21:26)
[2020-05-16 07:00] VITALS: PULSE 72
--- NOTE | 2020-05-16 07:00 | DI.US_ITS ---
APPROVED REPORT EXAM: Comprehensive 2D, Doppler, and color-flow Echocardiogram Patient Location: In-Patient Room/Bed: 227 Counseling Services Manager: Porsha Lazo RDCS (AE) Indications: CHF Other Information Study Quality: Fair. Technically limited study due to body habitus, inability to position patient. Conclusion This is a technically limited study. Left Ventricle : The left ventricle is normal size. The left ventricular systolic function is normal. The left ventricular ejection fraction is within the normal range. Mild concentric left ventricular hypertrophy. There is normal LV segmental wall motion. The diastolic function is abnormal. LVEF is 60 -65%. Right Ventricle : Right ventricle is grossly normal in size. Right ventricular systolic function is g rossly normal. The RVSP is 35.2mmHg. Atria : Left atrium is severely dilated. Right atrium is mildly dilated. Mitral Valve : Severe mitral annular calcification. Mild mitral regurgitation. No evidence of mitral valve stenosis. Great Vessels : The aortic root is normal in size. The ascending aorta is normal in size. Aortic arch is not well visualized. IVC is normal in size and collapses >50% with inspiration. Please see remainder of study for further details. Wall motion Left Ventricle The left ventricle is normal size. The left ventricular systolic function is normal. The left ventric ular ejection fraction is within the normal range. Mild concentric left ventricular hypertrophy. Ther e is normal LV segmental wall motion. The diastolic function is abnormal. There is no ventricular sep stephanie defect visualized. LVEF is 60-65%. Right Ventricle Right ventricle is grossly normal in size. Right ventricular systolic function is grossly normal. The RVSP is 35.2mmHg. Atria Left atrium is severely dilated. Right atrium is mildly dilated. The interatrial septum is intact wit h no evidence for an atrial septal defect. Aortic Valve The Aortic valve is sclerotic. Aortic valve is trileaflet. There is no aortic valvular stenosis. No a ortic regurgitation is present. Mitral Valve Severe mitral annular calcification. No evidence of mitral valve stenosis. Mild mitral regurgitation. Tricuspid Valve The tricuspid valve is normal in structure. There is no tricuspid valve stenosis. Trace tricuspid reg urgitation. Pulmonic Valve The pulmonary valve is normal in structure. There is no pulmonic valvular stenosis. There is no pulmo karri valvular regurgitation. Great Vessels The aortic root is normal in size. The ascending aorta is normal in size. Aortic arch is not well vis ualized. IVC is normal in size and collapses >50% with inspiration. Pericardium There is no pericardial effusion. 2D Dimensions IVSD d PLAX 1.25 cm F: 0.6-1.0 LV Vol A2C d MOD 78.0 mL LVPW d PLAX 1.24 cm F: 0.6 - 1.0 LV Vol A4C d MOD 62.0 mL LVID d PLAX 4.98 cm F: 3.8 - 5.2 LA vol/ BSA A2C s A-L 50.2 mL/m2 LVDs 3.15 cm F: 2.2 - 3.5 LA vol/ BSA A4C s A-L 54.6 mL/m2 Ao Root d 2.71 cm F: 2.7 - 3.3 LA Vol/ BSA Biplane s A-L 55.9 mL/m2 RA Area A4C 19.43 cm2 LA Area A4C s MOD 29.08 cm2 RA Vol/ BSA A4C s A-L 27.9 mL/m2 LA Area A2C s MOD 26.08 cm2 Ao Asc Diam d 3.05 cm F: 2.3 - 3.1 LV EF A4C MOD 64.2 % LV EF Teichholz 65.4 % LV EF A2C MOD 60.2 % LVEF (Alonzo's) 62.43 % F: 54 - 74 LV EF Biplane MOD 62.4 % LV Volume 54.38 mL F: 46 - 106 SV 43.96 mL LV Volume Index 29.71 mL/m2 F: 29 - 61 SV Index 23.94 mL/m2 LV Vol Biplane MOD 70.4 mL FS 36.00 % M-Mode TAPSE 1.39 cm (M/F) >1.7 LV Diastology MV E' medial 0.070 (>0.07 m/s) MV E Vmax 1.50 (0.4-1.3 m/s) LV E/e MED 21.50 (<14) MV E' lateral 0.064 (>0.1 m/s) LV E/e LAT 23.55 (<14) MV E/E' medial 21.52 MV E/E' lateral 23.59 Aortic Valve LVOT Area 2.98 cm2 AoV Area Vmax 1.96 cm2 LVOT Vmax 0.91 m/s AoV Area/ BSA (Vmax) 1.07 cm2/m2 LVOT Mean Marc. 0.61 m/s AMINA Mean Marc. 1.57 cm2 LVOT Peak Grad 3.3 mmHg AMINA Mean Marc. Index 0.86 cm2/m2 LVOT Mean Grad 1.7 mmHg LVOT VTI 0.134 m LVOT Diam s 1.90 cm AoV Vmax 1.38 m/s Velocity Ratio 0.65 AoV Mean Marc. 1.16 m/s AoV Peak Grad 7.6 mmHg LVOT SV 39.93 mL AoV Mean Grad 5.5 mmHg AoV VTI 0.283 m AoV Area VTI 1.41 cm2 AoV Area/ BSA (VTI) 0.77 cm/m2 Mitral Valve MV DT 243 (160-240 msec) MV PHT 71 msec MV Area PHT 3.12 cm2 MV VTI 0.297 m MV Area VTI 1.35 (4.0-6.0 cm2) Pulmonary Valve PV Vmax 0.93 (0.5-1.5 m/s) RVOT Peak Gr. 2.88 mmHg PV Peak Grad 3.5 mmHg RVOT Mean Gr. 1.45 mmHg PV Mean Grad 2.2 mmHg RVOT VTI 0.129 m PV VTI 0.166 m RVOT Vmax 0.85 m/s Tricuspid Valve TR Peak Grad 32.1 mmHg TR Vmax 2.84 m/s RA Pressure 3.00 mmHg RVSP (TR) 35.2 mmHg
[2020-05-16 07:11] LABS: Anion Gap 7.2 mmol/L (3-11); BUN 11 mg/dL (7-18); CO2 34.8 mmol/L (21.0-32.0); CREATININE 0.9 mg/dL (0.55-1.02); Calcium 8.8 mg/dL (8.5-10.1); Chloride 99 mmol/L (98-107); Glucose 89 mg/dL (74-106); Magnesium 1.8 mg/dL (1.8-2.4); NT-proBNP 2552 pg/mL (<300); Potassium 3.5 mmol/L (3.5-5.1); Sodium 141 mmol/L (136-145)
[2020-05-16 08:05] VITALS: BP 112/74; PULSE 83; RESP 22; TEMP 36.5; O2SAT 91
[2020-05-16] MEDS: Lactobacillus Acidophilus CAP 1 CAP PO ×2 (08:58→21:25)
[2020-05-16] MEDS: LORazepam 0.5 MG TAB PO ×2 (08:58→15:55)
[2020-05-16] MEDS: Pantoprazole 20 MG TABCR PO (08:58)
[2020-05-16] MEDS: dilTIAZem CD 120 MG CAPCR PO (08:58)
[2020-05-16] MEDS: Sertraline 50 MG TAB PO (08:58)
[2020-05-16] MEDS: risperiDONE 0.5 MG TAB PO ×2 (08:58→12:24)
[2020-05-16] MEDS: Apixaban 5 MG TAB PO ×2 (08:58→21:25)
[2020-05-16] MEDS: Aspirin E.C. 81 MG TABEC PO (08:58)
[2020-05-16] MEDS: Mometasone 220 MCG 14 DOSE INHALER 2 PUFF IH ×2 (09:25→21:25)
--- NOTE | 2020-05-16 12:02 | INITIAL_ITS ---
- If Service Date Differs Date of service: 05/16/20 Time of Service: 12:02 Care Management Initial Assess REASON FOR HOSPITALIZATION:: Acute on chronic CHF, Afib. PAST MEDICAL HISTORY/PAST SURGICAL HISTORY:: Medical History: Abdominal aortic aneurysm - 4.4 cm 07/20 - s/p repair 2012, Anxiety, Arm skin lesion, left (12/09/15), Atherosclerosis, Bruit of left carotid artery - mild-mod. plaque per U/S, Complete edentulism, unspecified, COPD (chronic obstructive pulmonary disease) with emphysema, Coronary disease, CVD (cardiovascular disease), Dependence on supplemental oxygen, Depression - a. with psychotic features, Diarrhea (11/19/14), Disorder of adrenal gland - Adrenal mass on CT-right; serial CT scan no change - 02/18-09/19, normal metanephrines, normal dexamethasone suppression, Disorder of appendix - 12/07/12 s/p appendectomy, Electrolyte imbalance (09/15/14) - a. hypokalemia - b. hypomagnesemia, Elevated serum lactate dehydrogenase (LDH), Essential (primary) hypertension - 06/01/13, H/O inflammatory bowel disease, Hiatus hernia syndrome - 12/05/14 [facility] [place]; EGD, History of tobacco use. 100 pack/years, Hyperlipidemia, Hypertension, Increased body mass index, Ischemic bowel disease, 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), SCHAEFFER (nonalcoholic steatohepatitis), Nonspecific ulcerative proctitis - severe rectal chronic itis w/ erosion - Positive neutrophil AB most likely indicating ulcerative colitis, Palpitations - 08/26/14; FREQ PVC BY HOLTER , Right pontine CVA - [facility]-01/30/16; 8X5 mm, Seborrheic keratosis (01/01/16) - punch/shave biopsy skin of left arm, Shortness of breath (10/14/16), SVT (supraventricular tachycardia) (09/15/14), Tubular adenoma of colon (03/04/14), Urinary frequency (08/21/15), Vascular insufficiency of intestine (06/12/15), and Weight loss (04/02/14). Surgical History: Appendectomy, Biopsy, Soft Tissue (01/01/16) -. Punch/shave biospy of skin of left arm, seborrheic keratosis, Colectomy (09/18/14) - DR. GRAEJDA, Hemicolectomy - [facility]; 09/15/14; RIGHT,. History of bilateral ligation of fallopian tubes, History of partial colectomy - 09/15/14 right hemicolectomy w/ileocolic anastomosis, History of partial surgical removal of colon (09/15/14), Ligation of fallopian tube, S/P AAA repair, S/P tubal ligation, and Status post appendectomy. PREVIOUS FUNCTIONAL STATUS/SOCIAL/FAMILY SUPPORTS:: Deb is an 79 year old female who lives in [place]. She became in 2003 when [place], her of 42 years, . She has two supportive children, a daughter, Mimi, who resides with her, and a son, Fabricio, who lives locally, in addition to several grandchildren who also live in the area. When asked about things she enjoys doing, Deb replies that she doesn't do much anymore but does like to watch television. CURRENT FUNCTIONAL STATUS:: Deb is laying in bed when CM comes to meet with her. She is pleasant and easily engages in conversation. She asks for my assistance in calling her daughter on the telephone. ADVANCE DIRECTIVES:: Advance Directive on file; daughter Mimi Merino is Health Care Agent. DNR/COLST also on file. Has patient been provided with info about the portal/API?: No Did the patient sign up for the portal?: No CODE STATUS:: DNR/DNI INSURANCE COVERAGE / FINANCIAL ISSUES:: [facility] (Medicare replacement plan). CURRENT HOME/COMMUNITY SERVICES/EQUIPMENT:: Deb states she has a FWW and a wheelchair. She denies any other equipment or home/community services. PRIMARY CARE PHYSICIAN:: Carolin Salinas MD. POTENTIAL DISCHARGE NEEDS:: Follow up appointment with PCP and personnel security assistant. PATIENT/FAMILY EDUCATION NEEDS:: Discharge instructions, limitations, follow up plan of care, including Ask Me Three and self-management. ANTICIPATED BARRIERS TO DISCHARGE:: None. TRANSPORTATION:: Via private vehicle with family. PLAN:: Anticipate Deb will be discharged home when medically cleared by provider. She will follow up with her PCP, personnel security assistant, and discharge plan of care as prescribed. Family will drive her home via private vehicle when ready. CM will continue to follow.
--- NOTE | 2020-05-16 14:17 | PHA.REVIEW ---
Pharmacy Admission Review - Admission Clinical Review (Last Reviewed 05/15/20 @ 23:25 by Rosendo Seals) Hypoxia (Acute) pneumococcal 7-valent conjugate to [From Prevnar] Allergy (Mild, Verified 05/15/20 14:35) Local reaction amoxicillin trihydrate [From Augmentin] Adverse Reaction (Intermediate, Verified 05/15/20 14:35) VOMITING potassium clavulanate [From Augmentin] Adverse Reaction (Intermediate, Verified 05/15/20 14:35) VOMITING Height 5 ft 2 in Weight 77.8 kg - Renal Dosing Renal Dosing: BUN 11 mg/dL (7-18) 05/16/20 06:12 Creatinine 0.9 mg/dL (0.55-1.02) 05/16/20 06:12 Medications needing adjustments: Reviewed (Crcl ~48.2 mL/min current meds okay.) - Anticoagulation Anticoagulation: Hgb 13.6 g/dL (11.2-15.7) 05/15/20 16:05 Hct 44.3 % (36.0-46.0) 05/15/20 16:05 Plt Count 178 10^3/uL (130-400) 05/15/20 16:05 INR 1.0 (0.9-1.1) 05/15/20 16:05 Creatinine 0.9 mg/dL (0.55-1.02) 05/16/20 06:12 DVT Prohphylaxis: N/A Therapeutic Anticoagulation: Reviewed Medications: Apixaban - Opiate Usage Evaluate Pain Scale/Pains Meds: N/A - Relevant Labs Sodium 141 mmol/L (136-145) 05/16/20 06:12 Potassium 3.5 mmol/L (3.5-5.1) 05/16/20 06:12 Chloride 99 mmol/L (98-107) 05/16/20 06:12 Magnesium 1.8 mg/dL (1.8-2.4) 05/16/20 06:12 Electrolytes, C-Reactive P, ESR: Reviewed - DM Control DM Control: Glucose 89 mg/dL (74-106) 05/16/20 06:12 Insulin Dosing: N/A - Heart Failure/ME Heart Failure/ME: Troponin I < 0.05 ng/mL (<0.06) 05/15/20 22:37 NT-Pro-B Natriuret Pep 2552 pg/mL (<300) H 05/16/20 06:12 EF%, NALINI's, B-Blockers, Diuretics: Reviewed - BP Control BP Control: Blood Pressure 112/74 Blood Pressure 106/59 If elevated: N/A - Qtc Review If Elevated: Reviewed (QTc elevated on admission but 418 on the most recent EKG so far this visit.) - IV to PO Switch IV Medications: Reviewed - Home Meds Home Med List reviewed: Reviewed (Aspirin may enhance the bleed risk of apixaban.) Relevent Home Meds Not ordered & why?: albuterol (PRN), flovent (has mometasone subbed for this), loperamide (PRN) - Current meds Current Medication Order Review: Intervened (Lorazepam ordered BID, but label comment from home med says in the morning and at noon. Talked to provider, order updated to match how patient takes at home.) - Comments Comments/Follow Ups: Watch VS, SCr, labs and for med changes (possible renal dose adjustments).
[2020-05-16 14:36] VITALS: PULSE 76
[2020-05-16 15:29] VITALS: BP 108/56; PULSE 90; RESP 17; TEMP 37.5; O2SAT 90
--- NOTE | 2020-05-16 15:49 | W.PM.PROGNOT ---
Date of Service Date of service: 05/16/20 Time of Service: 15:50 Assessment and Plan Assessment and plan (1) Acute on chronic diastolic (congestive) heart failure: Status: Acute Assessment and plan: Agree that this is likely rate-dependent. Continue lasix gtt. UOP adequate. Monitor kidney function, I/O's, daily weights. (2) Pulmonary hypertension: Status: Acute Assessment and plan: As above (3) Hypoxia: Status: Acute Assessment and plan: Due to combination of above - wean O2 as tolerated as we are diuresing. (4) Atrial fibrillation: Status: Chronic Assessment and plan: Rate is controlled with increase of beta blockade. Continue to monitor on tele. Qualifiers: Atrial fibrillation type: unspecified Qualified Code(s): I48.91 - Unspecified atrial fibrillation (5) DVT prophylaxis: Status: Acute Assessment and plan: On therapeutic apixaban (6) Discharge planning issues: Status: Acute Assessment and plan: DNR/DNI Consult PT Subjective Subjective Interval history since last seen: Ms Merino states that she feels overall just tired. She states that she hasn't had any chest pain today. Her breathing is alright, better than yesterday. Denies dizziness, nausea, abdominal pain. She is on 1 L of O2 when I talk to her, O2 sat 90%. Remains on lasix gtt. Exam Narrative Exam Narrative: General: Pleasant elderly female, A&Ox2, laying on her right side, not dyspneic/tachypenic HEENT: EOMI, dry MM Heart: RRR, no m/r/g Lungs: fine rales, overall dull-sounding breath sounds Abdomen: soft, nontender, nondistended Extremities: trace edema BLE's. Objective Last Vital Signs Temp 37.5 C 05/16/20 15:29 Pulse 90 05/16/20 15:29 Resp 17 05/16/20 15:29 BP 108/56 L 05/16/20 15:29 Pulse Ox 90 L 05/16/20 15:29 Laboratory Results - last 24 hr 05/15/20 05/15/20 05/15/20 16:05 16:05 16:05 WBC 9.13 RBC 4.59 Hgb 13.6 Hct 44.3 MCV 96.5 H MCH 29.6 MCHC 30.7 L RDW 13.4 Plt Count 178 MPV 10.3 Immature Gran % 0.2 Neutrophils % 74.3 Lymphocytes % 15.7 Monocytes % 8.5 Eosinophils % 0.9 Basophils % 0.4 Nucleated RBC % 0 Absolute Neutrophils 6.78 H Absolute Lymphocytes 1.43 Absolute Monocytes 0.78 Absolute Eosinophils 0.08 Absolute Basophils 0.04 PT 10.2 INR 1.0 APTT 23.9 Sodium 137 Potassium 3.7 Chloride 99 Carbon Dioxide 32.3 H Anion Gap 5.7 BUN 13 Creatinine 1.0 Estimated GFR/1.73 m2 53.35 Glucose 105 Calcium 8.5 Magnesium 1.8 Total Bilirubin 0.8 AST 8 L ALT 17 Alkaline Phosphatase 89 Troponin I < 0.05 NT-Pro-B Natriuret Pep 3128 H Total Protein 6.8 Albumin 3.3 L Urine Color Urine Clarity Urine pH Ur Specific [place] Urine Protein Urine Ketones Urine Blood Urine Nitrite Urine Bilirubin Urine Urobilinogen Ur Leukocyte Esterase Urine Glucose COVID-19 Source SARS-CoV-2 (PCR) Influenza Type A (PCR) Influenza Type B (PCR) RSV (PCR) 05/15/20 05/15/20 05/15/20 16:43 16:56 18:40 WBC RBC Hgb Hct MCV MCH MCHC RDW Plt Count MPV Immature Gran % Neutrophils % Lymphocytes % Monocytes % Eosinophils % Basophils % Nucleated RBC % Absolute Neutrophils Absolute Lymphocytes Absolute Monocytes Absolute Eosinophils Absolute Basophils PT INR APTT Sodium Potassium Chloride Carbon Dioxide Anion Gap BUN Creatinine Estimated GFR/1.73 m2 Glucose Calcium Magnesium Total Bilirubin AST ALT Alkaline Phosphatase Troponin I < 0.05 NT-Pro-B Natriuret Pep Total Protein Albumin Urine Color Yellow Urine Clarity Clear Urine pH 6.0 Ur Specific [place] 1.020 Urine Protein Negative Urine Ketones Negative Urine Blood Negative Urine Nitrite Negative Urine Bilirubin Negative Urine Urobilinogen 0.2 Ur Leukocyte Esterase Negative Urine Glucose Negative COVID-19 Source Nasopharyx SARS-CoV-2 (PCR) Negative Influenza Type A (PCR) Negative Influenza Type B (PCR) Negative RSV (PCR) Negative 05/15/20 05/16/20 22:37 06:12 WBC RBC Hgb Hct MCV MCH MCHC RDW Plt Count MPV Immature Gran % Neutrophils % Lymphocytes % Monocytes % Eosinophils % Basophils % Nucleated RBC % Absolute Neutrophils Absolute Lymphocytes Absolute Monocytes Absolute Eosinophils Absolute Basophils PT INR APTT Sodium 141 Potassium 3.5 Chloride 99 Carbon Dioxide 34.8 H Anion Gap 7.2 BUN 11 Creatinine 0.9 Estimated GFR/1.73 m2 >= 60.00 Glucose 89 Calcium 8.8 Magnesium 1.8 Total Bilirubin AST ALT Alkaline Phosphatase Troponin I < 0.05 NT-Pro-B Natriuret Pep 2552 H Total Protein Albumin Urine Color Urine Clarity Urine pH Ur Specific [place] Urine Protein Urine Ketones Urine Blood Urine Nitrite Urine Bilirubin Urine Urobilinogen Ur Leukocyte Esterase Urine Glucose COVID-19 Source SARS-CoV-2 (PCR) Influenza Type A (PCR) Influenza Type B (PCR) RSV (PCR) Objective Narrative Objective Narrative: Echo; Left Ventricle : The left ventricle is normal size. The left ventricular systolic function is normal. The left ventricular ejection fraction is within the normal range. Mild concentric left ventricular hypertrophy. There is normal LV segmental wall motion. The diastolic function is abnormal. LVEF is 60-65%. Right Ventricle : Right ventricle is grossly normal in size. Right ventricular systolic function is grossly normal. The RVSP is 35.2mmHg. Atria : Left atrium is severely dilated. Right atrium is mildly dilated. Mitral Valve : Severe mitral annular calcification. Mild mitral regurgitation. No evidence of mitral valve stenosis. Great Vessels : The aortic root is normal in size. The ascending aorta is normal in size. Aortic arch is not well visualized. IVC is normal in size and collapses >50% with inspiration. Please see remainder of study for further details.
--- NOTE | 2020-05-16 21:21 | NUR.NOTE ---
Nursing Note: Pt requesting to go home. When asked how she came to that conclusion, pt states I hate it here. RN asked what she hates specifically. Pt states everything and is unwilling to elaborate. Pt is on supplemental oxygen; RN asked what pt will do at home without it. Pt states I don't know, I'll figure it out. When pt is asked how she views her health, she states not very good right now, I'm 79 years old. When asked about her healthcare goals, pt states I don't give a shit. Pt denies SI.
[2020-05-16] MEDS: risperiDONE 1 MG TAB 2 MG PO (21:25)
[2020-05-16] MEDS: traZODone 100 MG TAB PO (21:26)
[2020-05-17] VITALS (16 sets, daily range): BP systolic 82–128; BP diastolic 52–83; PULSE 84–130; RESP 18–20; TEMP 36–37.4; O2SAT 91–96
[2020-05-17] MEDS: Metoprolol 50 MG TAB 25 MG PO (04:21)
[2020-05-17 07:00] LABS: Abs Immature Grans 0.04 10^3/uL (0.0-0.06); Absolute Basophil Count 0.03 10^3/uL (0.0-0.2); Absolute Eosinophil Count 0.06 10^3/uL (0.0-0.7); Absolute Lymphocyte Count 1.38 10^3/uL (1.2-3.4); Absolute Monocyte Count 1.01 10^3/uL (0.1-0.8); Absolute Neutrophil Count 7.63 10^3/uL (1.2-6.7); Basophils % 0.3; Eosinophils % 0.6; HCT 46.9 % (36.0-46.0); HGB 14.9 g/dL (11.2-15.7); Immature Grans % 0.4; Lymphocytes % 13.6; MCH 29.7 pg (27.0-33.0); MCHC 31.8 % (32.0-36.0); MCV 93.6 fL (80-95); MPV 10.4 fL (8.0-11.0); Neutrophils % 75.1; Nucleated RBC 0 %; Platelet Count 206 10^3/uL (130-400); RBC 5.01 10^6/uL (3.93-5.22); RDW 13.2 % (11.7-14.6); RDW-SD 45.3 fL; WBC 10.15 10^3/uL (4.4-10.8)
[2020-05-17 07:15] LABS: BUN 17 mg/dL (7-18); CREATININE 1.1 mg/dL (0.55-1.02); Calcium 9.1 mg/dL (8.5-10.1); Chloride 91 mmol/L (98-107); Estimated GFR 47.79 (mL/min/1.73m2); Glucose 108 mg/dL (74-106); Magnesium 1.8 mg/dL (1.8-2.4); Sodium 135 mmol/L (136-145)
[2020-05-17 07:39] LABS: Anion Gap 7.1 mmol/L (3-11); CO2 36.9 mmol/L (21.0-32.0); Potassium 2.9 mmol/L (3.5-5.1)
[2020-05-17] MEDS: Mometasone 220 MCG 14 DOSE INHALER 2 PUFF IH ×2 (08:50→19:48)
[2020-05-17] MEDS: Pantoprazole 20 MG TABCR PO (09:15)
[2020-05-17] MEDS: Sertraline 50 MG TAB PO (09:15)
[2020-05-17] MEDS: dilTIAZem CD 180 MG CAPCR PO (09:15)
[2020-05-17] MEDS: risperiDONE 0.5 MG TAB PO ×2 (09:16→13:09)
[2020-05-17] MEDS: Apixaban 5 MG TAB PO ×2 (09:16→19:51)
[2020-05-17] MEDS: Lactobacillus Acidophilus CAP 1 CAP PO ×2 (09:16→19:50)
[2020-05-17] MEDS: LORazepam 0.5 MG TAB PO ×2 (09:16→13:10)
[2020-05-17] MEDS: Acetaminophen 325 MG TAB PO (09:17)
[2020-05-17] MEDS: Magnesium Oxide 400 MG TAB PO (09:17)
[2020-05-17] MEDS: Aspirin E.C. 81 MG TABEC PO (09:17)
[2020-05-17] MEDS: Potassium Chloride Liquid 20 MEQ PKT 40 MEQ PO (09:49)
[2020-05-17] MEDS: Metoprolol 5 MG/5 ML VIAL IVP (10:51)
--- NOTE | 2020-05-17 11:07 | W.PM.PROGNOT ---
Date of Service Date of service: 05/17/20 Time of Service: 11:07 Assessment and Plan Assessment and plan (1) Congestive heart failure: Status: Chronic Assessment and plan: Acute on chronic diastolic congestive heart failure exacerbated by rapid atrial fibrillation in the setting of LVH. Continue IV diuresis with monitoring of urine output as well as daily monitoring of her BMP. Primary goal in controlling her heart failure will be controlling her atrial fibrillation. Repeat echocardiogram yesterday confirmed by POCUS findings of LVH and normal RV and LV systolic function. Echo however demonstrated diastolic dysfunction as well as biatrial enlargement. Qualifiers: Heart failure type: diastolic Heart failure chronicity: acute on chronic Qualified Code(s): I50.33 - Acute on chronic diastolic (congestive) heart failure (2) Atrial fibrillation: Status: Chronic Assessment and plan: Continue adjustment of her diltiazem and Lopressor. If this does not control her heart rate may consider low-dose digoxin. Because of her LVH I would prefer to avoid digoxin but this would not be absolutely contraindicated if it is need to control her A. fib rate. Qualifiers: Atrial fibrillation type: unspecified Qualified Code(s): I48.91 - Unspecified atrial fibrillation (3) Hypertension: Status: Chronic Assessment and plan: Continue diltiazem and metoprolol as noted above. Once she is euvolemic consideration should be given for an NALINI inhibitor or angiotensin receptor sergio. Qualifiers: Hypertension type: essential hypertension Qualified Code(s): I10 - Essential (primary) hypertension (4) Discharge planning issues: Status: Acute Assessment and plan: Discharge home once her atrial fibrillation and CHF are controlled. She will be discharged with visiting nurse to monitor her cardiovascular status and to monitor her medications. Subjective Subjective Interval history since last seen: Patient denies any dyspnea at rest but with any kind activities she gets short of breath. She remains on oxygen at 1 L/min per nasal cannula with oxygen saturations of 90 to 93%. She has no wheezing no cough and no chest discomfort. Repeat CBC shows no anemia no leukocytosis. BMP this morning shows a slight increase her creatinine 1.1 with a normal BUN of 17. Potassium is down to 2.9. She remains on a furosemide drip at 5 mg an hour for her congestive heart failure. Echocardiogram confirmed my POCUS findings that she has normal LV and RV function but has moderate LVH as well as biatrial enlargement. She remains in atrial fibrillation with variable ventricular rate and generally heart rate has remained in the low 100s to 110s. I have increased both her metoprolol and her diltiazem. She was just given a dose of IV Lopressor for sustained heart rate in the 120s-130s. Her weight is down to 77.5 kg from admission weight of 83 kg. Her cumulative fluid balance is down -4500 mL. Over the past 24 hours she is net -1 L. Told the patient we will work on trying to improve her heart rate control and continue with diuresis. I have given her oral potassium supplementation to correct her hypokalemia. Exam Narrative Exam Narrative: Obese female who is alert and oriented person place time circumstance sitting up in her chair watching TV in no apparent respiratory distress. Not using accessory respiratory muscles. Lungs with bibasilar rales with clear upper hamm and no wheezing and rhonchi. Heart irregular regular at her slightly tachycardic rate. Lower extremities with trace of ankle edema. Abdomen soft and nontender. Objective Last Vital Signs Temp 36.4 C L 05/17/20 07:43 Pulse 130 H 05/17/20 10:51 Resp 20 05/17/20 07:43 BP 105/62 05/17/20 10:51 Pulse Ox 93 05/17/20 07:43 Laboratory Results - last 24 hr 05/17/20 05/17/20 06:05 06:05 WBC 10.15 RBC 5.01 Hgb 14.9 Hct 46.9 H MCV 93.6 MCH 29.7 MCHC 31.8 L RDW 13.2 Plt Count 206 MPV 10.4 Immature Gran % 0.4 Neutrophils % 75.1 Lymphocytes % 13.6 Monocytes % 10.0 Eosinophils % 0.6 Basophils % 0.3 Nucleated RBC % 0 Absolute Neutrophils 7.63 H Absolute Lymphocytes 1.38 Absolute Monocytes 1.01 H Absolute Eosinophils 0.06 Absolute Basophils 0.03 Sodium 135 L Potassium 2.9 L Chloride 91 L Carbon Dioxide 36.9 H Anion Gap 7.1 BUN 17 D Creatinine 1.1 H Estimated GFR/1.73 m2 47.79 Glucose 108 H Calcium 9.1 Magnesium 1.8 Reviewed Pertinent PMH: Yes Objective Narrative Objective Narrative: Limited POCUS of her lungs demonstrates bibasilar B-lines no consolidation. Upper lung hamm show normal A-line pattern
--- NOTE | 2020-05-17 12:43 | PDOC.CMPRO ---
- If Service Date Differs Date of service: 05/17/20 Time of Service: 12:43 Care Management Progress Note S/O: CM spoke with Deb' daughter, Mimi, this morning. Mimi reports she spoke with her mom earlier and her mom wants to return home today. Mimi explains her mom has a lot of anxiety and asks if it might be possible for Dr. Salinas, Deb' PCP, to stop by and see her mom. CM discusses the request with Dr. Salinas, who happens to be at the hospital seeing palliative care patients, and she agrees to check in on Deb to try and alleviate some of her anxiety around being in the hospital. Deb is laying in bed when CM comes to meet with her. She reports doing okay and says she understands why the provider is recommending she remain at the hospital. She confirms speaking with her daughter, says her daughter misunderstood what she was saying, and denies wanting to go home today. Per MD note, Deb continues with IV diuretics with a plan of discharging her home when her AFIB and CHF are under control. A: Deb is a 79 year old female admitted to [facility] on 05/15/20 for acute on chronic CHF and AFIB. P: Anticipate Deb will be discharged home when medically cleared by provider with new RN services to monitor her medications and cardiovascular status. Respiratory therapy continues to assess Deb' need for home O2. Deb will be driven home by family via private vehicle when ready. CM will continue to support Deb, her family, and discharge planning needs.
--- NOTE | 2020-05-17 13:49 | IN_ITS ---
Date of service: 05/17/20 Time of Service: 10:30 PT Notes Visit Reasons: ACUTE ON CHRONIC CHF, AFIB Inpatient Physical Therapy Evaluation Date: 05/17/20 Referring Doctor: Dr. Akbar PT Orders: PT CONSULT: limited ability to ambulate Precautions: fall, standard Patient Profile/Admitting Diagnosis: Patient admitted from ER, after presenting with shortness of breath. She was diagnosed with acute on chronic CHF, and admitted for medical management. PMHX: Abdominal aortic aneurysm (05/31/12) 4.4 cm 07/20 s/p repair 2013 Anxiety (07/25/17) Arm skin lesion, left (12/09/15) Atherosclerosis Atherosclerosis Bruit Bruit of left carotid artery mild-mod. plaque per U/S Complete edentulism, unspecified COPD (chronic obstructive pulmonary disease) COPD (chronic obstructive pulmonary disease) with emphysema Coronary disease CVD (cardiovascular disease) Dependence on supplemental oxygen Depression a. with psychotic features Diarrhea (11/19/14) 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 02/18-09/19, normal metanephrines, normal dexamethasone suppression. 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 hypokalemia b. 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 She states that she normally gets around independently, but that she has a walker that she uses when she feels she needs it. Equipment Owned/DME: [facility] Subjective: Patient is on the commode at initiation of session. She states that she would like to go back to the chair. She denies shortness of breath. Objective: General Observation: Patient on commode, with Quijano cathether and telemetry in place. She has supplemental Oxygen via nasal cannula, and IV in LUE. Patient demonstrates rapid, shallow breathing, rocking back and forth with her breaths, although denies feeling short of breath. Mental Status: A&O. Pleasant and cooperative throughout. Pain: denies Vital Signs: Assessed by nursing at time of consult. Patient's HR at rest varies between 118-130, and BP is 102/70. ROM: Right Upper Extremity: Shoulder flexion to 90 degrees bilat. Elbow and wrist WNL. Left Upper Extremity: Shoulder flexion to 90 degrees. Elbow and wrist WNL> Right Lower Extremity: WFL Left Lower Extremity: WFL Strength: Right Upper Extremity: Shoulder flexion 3-/5. Triceps 4-/5. Leadership Program Associate is weak, but equal. Left Upper Extremity: Shoulder flexion 3-/5. Triceps 4-/5. Leadership Program Associate is weak, but equal. Right Lower Extremity: Hip flexion 4/5. Quads 4+/5. Ankle DF 4/5. Left Lower Extremity: Hip flexion 4/5. Quads 4+/5. Ankle DF 4/5. Bed Mobility/Transfers: Sit-stand: CGA stand-sit: CGA Gait: Patient performed stand-step transfer only. Due to elevated HR at rest, we deferred on further ambulation. She performed transfer with CGA and use of FWW, with need for minimal cues. Balance: Static Sitting: normal Dynamic Sitting: normal Static Standing: fair Dynamic Standing: fair Special Tests: Mobility Limitations Standardized Measure [facility] 6 clicks Basic Mobility Inpatient Short Form: Raw Score: 17 CMS Score: 51% deficit Informed Consent/Education: Patient instructed in purpose of PT consult and plan of care. Assessment: Patient is a 79 year old female referred to physical therapy services with the diagnosis of acute on chronic CHF. Patient presents with clinical signs and symptoms consistent with diagnosis, as demonstrated by the following impairment level findings: 1. Dyspnea at rest 2. elevated HR at rest 3. decreased activity tolerance Impairments are contributing to the following functional limitations: 1. unable to assess ambulation due to unsafe vitals parameters 2. decreased activity tolerance Patient is assessed as Moderate [id number] complexity based on the following: History: 79 year old female presenting with mobility deficits related to acute on chronic CHF. Complicating factors include advanced age and extensive medical history. Examination: functional limitations as noted above Presentation: evolving Decision Making: moderate complexity Goals: Goals X1 week 1. Supine-Sit : supervision 2. Sit-Supine : supervision 3. Sit-Stand : supervision 4. Stand-Sit : supervisio 5. Bed-Chair : supervision with FWW 6. Chair-Bed : supervision with FWW 7. Gait : supervision x 25' with FWW Plan of Care/Treatment Plan: 1-2x/day, 7 days/week x 1 week. Plan of care has been reviewed with the BASIN FINISH OPERATOR TIG WELDER providing the service under Physical Therapy direction. Initiate Physical Therapy intervention for strengthening, bed mobility, transfers, gait, stairs, balance training, use of assistive device. DISCHARGE RECOMMENDATIONS: Home, without anticipated equipment needs TREATMENT CODE/TIME: 10:30-10:50 ([id number]) Alisha Barnes, PT, DPT [facility]
[2020-05-17 14:01] LABS: Potassium 4.1 mmol/L (3.5-5.1)
[2020-05-17] MEDS: Potassium Chloride Liquid 20 MEQ PKT PO (14:21)
[2020-05-17] MEDS: Metoprolol 25 MG TAB 37.5 MG PO ×2 (16:16→19:49)
--- NOTE | 2020-05-17 16:21 | PCNE_ITS ---
Date of service: 05/17/20 Time of Service: 11:21 History of Present Illness Narrative: Pt is well known to me. She had new onset atrial fibrillation. I started her on anticoagulation and attempted rate control seeing her regularly. (She continually declined ED or hospital admission. It was difficult to get her consent for appropriate workup.) On pt came to my office and finally consented to ED and possible admission for hypoxia, CHF and new onset atrial fibrillation with difficult to control rate. Today she says she feels better, but as always, wants to go home. Consults Consult date: 05/17/20 Requesting physician: Tatianna Tao Assessment and Plan Assessment and plan (1) Acute on chronic diastolic (congestive) heart failure: Status: Acute (2) Atrial fibrillation: Status: Chronic Qualifiers: Atrial fibrillation type: unspecified Qualified Code(s): I48.91 - Unspecified atrial fibrillation (3) Tachycardia: Status: Acute (4) Shortness of breath: Status: Chronic (5) Physician orders for life-sustaining treatment (POLST) form indicates diomedes ent wish for [id number] status: Status: Acute (6) DNR (do not resuscitate): Status: Acute (7) Palliative care patient: Status: Acute Assessment and plan: Deb is an 79-year-old patient who is well-known to me. She has been my primary care patient for approximately 2 decades. As is her way, she often is resistant to any work-up regardless of condition. She is anxious to get home. Her CHF is better controlled and her breathing improved. She normally sats in the upper 80's Rate control remains problematic - hopefully this will improve soon Her K has been rreplenished She remains clear on her code status: DNR/DNI. Review of Systems Narrative: She has no chest pain, always SOB, no abdominal pain, no headache, no bowel or bladder changes. She wants to go home elizabeth. She cannot feel when her heartrate is fast Psychiatric Psychiatric: Reports anxiety, Reports depression and Reports difficulty concentrating [facility] Medical History Abdominal aortic aneurysm (05/31/12) 4.4 cm 07/20 s/p repair 2013 Anxiety (07/25/17) Arm skin lesion, left (12/09/15) Atherosclerosis Atherosclerosis Bruit Bruit of left carotid artery mild-mod. plaque per [place] Complete edentulism, unspecified COPD (chronic obstructive pulmonary disease) COPD (chronic obstructive pulmonary disease) with emphysema Coronary disease CVD (cardiovascular disease) Dependence on supplemental oxygen Depression a. with psychotic features Diarrhea (11/19/14) 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 02/18-09/19, normal metanephrines, normal dexamethasone suppression. 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 hypokalemia b. 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 Positive neutrophil AB mostlikely indicating ulcerative colitis Palpitations 08/26/14; FREQ PVC BY HOLTER Palpitations Right pontine CVA [facility]-01/30/16; 8X5 mm Seborrheic keratosis (01/01/16) punch/shave biopsy skin of left arm Seborrheic keratosis (01/01/16) Shortness of breath (10/14/16) SVT (supraventricular tachycardia) (09/15/14) Tubular adenoma of colon (03/04/14) Urinary frequency (08/21/15) Vascular insufficiency of intestine (06/12/15) Weight loss (04/02/14) Surgical History Appendectomy Biopsy, Soft Tissue (01/01/16) Punch/shave biospy of skin of left arm, seborrheic keratosis Colectomy (09/18/14) DR. GRAJEDA Hemicolectomy [facility]; 09/15/14; RIGHT History of bilateral ligation of fallopian tubes History of partial colectomy 09/15/14 right hemicolectomy w/ileocolic anastomosis History of partial surgical removal of colon (09/15/14) Ligation of fallopian tube S/P AAA repair S/P tubal ligation Status post appendectomy Family History Mother Essential hypertension Alzheimer's disease Father Heart disease Breast cancer Prostate cancer Sister Myocardial infarction Sister Myocardial infarction Brother Cancer Sister No problems noted. Sister No problems noted. Brother Substance abuse Brother Substance abuse Brother Substance abuse Cancer Son No problems noted. Daughter No problems noted. Social History Smoking/Tobacco Use Status: Former Tobacco Use Smoking risk assessment performed?: Yes Alcohol Intake: never Drug use: Never Substance use type: does not use Household members: other Details: 4 Pets and animals: Yes Pets and animals: cat(s) and dog(s) Current gender identity: decline to answer What is your relationship status?: refused to answer How often do you talk on the phone with friends or family?: decline to answer How often do you get together with friends or relatives?: decline to answer How often do you attend shinto or zoroastrian services?: decline to answer Do you belong to any clubs or organized social groups?: decline to answer Panel score (0-1 are the most socially isolated patients): 0 What type of physical activity do you participate in: none Lelo/Restoration: No preference Special lelo needs: No Do you feel safe at home: Yes Do you feel safe in your relationship?: Yes Exam Narrative Exam Narrative: Sitting in a chair. Happy to see me. Looks comfortable. Laboratory Tests 11/22/18 05/15/20 05/15/20 16:00 16:05 16:56 WBC Hct ESR 16 Sodium Potassium Creatinine NT-Pro-B Natriuret Pep 3128 H SARS-CoV-2 (PCR) Negative 05/16/20 05/17/20 05/17/20 06:12 06:05 06:05 WBC 10.15 Hct 46.9 H ESR Sodium 135 L Potassium 2.9 L Creatinine 0.9 1.1 H NT-Pro-B Natriuret Pep 2552 H SARS-CoV-2 (PCR) 05/17/20 13:49 WBC Hct ESR Sodium Potassium 4.1 D Creatinine NT-Pro-B Natriuret Pep SARS-CoV-2 (PCR) echo Conclusion This is a technically limited study. Left Ventricle : The left ventricle is normal size. The left ventricular systolic function is normal. The left ventricular ejection fraction is within the normal range. Mild concentric left ventricular hypertrophy. There is normal LV segmental wall motion. The diastolic function is abnormal. LVEF is 60-65%. Right Ventricle : Right ventricle is grossly normal in size. Right ventricular systolic function is grossly normal. The RVSP is 35.2mmHg. Atria : Left atrium is severely dilated. Right atrium is mildly dilated. Mitral Valve : Severe mitral annular calcification. Mild mitral regurgitation. No evidence of mitral valve stenosis. Great Vessels : The aortic root is normal in size. The ascending aorta is normal in size. Aortic arch is not well visualized. IVC is normal in size and collapses >50% with inspiration. Please see remainder of study for further details. CT Scan PRESSION: 1. Examination limited by patient motion artifact. 2. No evidence of pulmonary embolism. There is suboptimal assessment of the distal pulmonary arteries due to the patient motion artifact. 3. No evidence of thoracic aortic dissection. 4. Cardiomegaly without evidence of right heart strain. Resp Effort & Inspection: able to speak in complete sentences and prolonged expiratory phase Auscultation: clear to auscultation bilaterally (much improved from ) Cardio Rate: tachycardic Rhythm: abnormal rhythm GI Palpation: soft and no hepatosplenomegaly Psych Speech and Movement: speech clear Mood: anxious mood Affect: blunted Attitude: cooperative Results Last Vital Signs Temp 99.3 F 05/17/20 15:00 Pulse 87 05/17/20 15:00 Resp 19 05/17/20 15:00 BP 108/68 05/17/20 15:00 Pulse Ox 91 L 05/17/20 15:00 Labs Result diagrams: 05/17/20 06:05 05/17/20 13:49 Labs: Laboratory Results - last 24 hr 05/17/20 05/17/20 05/17/20 06:05 06:05 13:49 WBC 10.15 RBC 5.01 Hgb 14.9 Hct 46.9 H MCV 93.6 MCH 29.7 MCHC 31.8 L RDW 13.2 Plt Count 206 MPV 10.4 Immature Gran % 0.4 Neutrophils % 75.1 Lymphocytes % 13.6 Monocytes % 10.0 Eosinophils % 0.6 Basophils % 0.3 Nucleated RBC % 0 Absolute Neutrophils 7.63 H Absolute Lymphocytes 1.38 Absolute Monocytes 1.01 H Absolute Eosinophils 0.06 Absolute Basophils 0.03 Sodium 135 L Potassium 2.9 L 4.1 D Chloride 91 L Carbon Dioxide 36.9 H Anion Gap 7.1 BUN 17 D Creatinine 1.1 H Estimated GFR/1.73 m2 47.79 Glucose 108 H Calcium 9.1 Magnesium 1.8
[2020-05-17] MEDS: traZODone 100 MG TAB PO (19:51)
[2020-05-17] MEDS: Potassium Chloride 10 MEQ CAPCR 20 MEQ PO (19:51)
[2020-05-17] MEDS: risperiDONE 1 MG TAB 2 MG PO (19:55)
[2020-05-18] VITALS (9 sets, daily range): BP systolic 106–133; BP diastolic 54–81; PULSE 66–134; RESP 18–24; TEMP 36.2–37; O2SAT 91–95
[2020-05-18] MEDS: Metoprolol 5 MG/5 ML VIAL IVP (06:55)
[2020-05-18] MEDS: Normal Saline Flush 10 ML SYR IVP ×2 (06:57→20:09)
[2020-05-18 07:34] LABS: Anion Gap 6.2 mmol/L (3-11); BUN 28 mg/dL (7-18); CO2 37.8 mmol/L (21.0-32.0); CREATININE 1.1 mg/dL (0.55-1.02); Calcium 9.2 mg/dL (8.5-10.1); Chloride 91 mmol/L (98-107); Estimated GFR 47.79 (mL/min/1.73m2); Glucose 115 mg/dL (74-106); NT-proBNP 1231 pg/mL (<300); Sodium 135 mmol/L (136-145)
[2020-05-18] MEDS: LORazepam 0.5 MG TAB PO ×2 (08:08→12:23)
[2020-05-18] MEDS: Sertraline 50 MG TAB PO (08:08)
[2020-05-18] MEDS: Magnesium Oxide 400 MG TAB PO (08:08)
[2020-05-18] MEDS: Apixaban 5 MG TAB PO ×2 (08:08→20:11)
[2020-05-18] MEDS: Pantoprazole 20 MG TABCR PO (08:08)
[2020-05-18] MEDS: Potassium Chloride 10 MEQ CAPCR 20 MEQ PO ×2 (08:08→13:33)
[2020-05-18] MEDS: risperiDONE 0.5 MG TAB PO ×2 (08:08→12:22)
[2020-05-18] MEDS: Lactobacillus Acidophilus CAP 1 CAP PO ×2 (08:08→20:11)
[2020-05-18] MEDS: Metoprolol 25 MG TAB 37.5 MG PO (08:09)
[2020-05-18] MEDS: dilTIAZem CD 180 MG CAPCR PO (08:09)
[2020-05-18] MEDS: Aspirin E.C. 81 MG TABEC PO (08:09)
[2020-05-18] MEDS: Mometasone 220 MCG 14 DOSE INHALER 2 PUFF IH ×2 (08:26→20:09)
[2020-05-18] MEDS: Potassium Chloride 10 MEQ CAPCR 40 MEQ PO (10:38)
--- NOTE | 2020-05-18 10:49 | PT.INTREAT ---
PT Notes Visit Reasons: ACUTE ON CHRONIC CHF, AFIB Inpatient Physical Therapy Treatment Note [facility] Date: 05/18/20 PRECAUTIONS: SUBJECTIVE: PT refused to stand or walk due to fatigue and not feeling well. THEREX: Pt completed UE strengthening ther ex as per flow sheet and LE strengthening ther ex as per flow sheet while seated in the chair. ASSESSMENT: Pt was fatigued fairly quickly during he session. Will monitor response and progress accordingly. PLAN: Cont as per PT POC. TREATMENT CODE/TIME: 9:10-9:20 (10) TP
[2020-05-18] MEDS: Bisoprolol 5 MG TAB PO (11:15)
[2020-05-18 14:35] LABS: Anion Gap 2.5 mmol/L (3-11); BUN 32 mg/dL (7-18); CO2 36.5 mmol/L (21.0-32.0); CREATININE 1.7 mg/dL (0.55-1.02); Calcium 8.5 mg/dL (8.5-10.1); Chloride 90 mmol/L (98-107); Estimated GFR 28.92 (mL/min/1.73m2); Glucose 124 mg/dL (74-106); Potassium 4.5 mmol/L (3.5-5.1); Sodium 129 mmol/L (136-145)
--- NOTE | 2020-05-18 15:08 | PGE_ITS ---
Date of Service Date of service: 05/18/20 Time of Service: 15:14 Assessment and Plan Assessment and plan (1) Congestive heart failure: Status: Inactive Assessment and plan: Acute on chronic diastolic congestive heart failure exacerbated by rapid atrial fibrillation in the setting of LVH. Hold diuresis at this point as the patient is developing some prerenal azotemia. Repeat BMP in the morning. Primary goal in controlling her heart failure will be controlling her atrial fibrillation. Repeat echocardiogram yesterday confirmed by POCUS findings of LVH and normal RV and LV systolic function. Echo however demonstrated diastolic dysfunction as well as biatrial enlargement. Qualifiers: Heart failure type: diastolic Heart failure chronicity: acute on chronic Qualified Code(s): I50.33 - Acute on chronic diastolic (congestive) heart failure (2) Atrial fibrillation: Status: Chronic Assessment and plan: Discontinue Lopressor and diltiazem. Continue with bisoprolol. May consider addition of low-dose digoxin once her renal function has recovered and potassium has stabilized. Qualifiers: Atrial fibrillation type: unspecified Qualified Code(s): I48.91 - Unspecified atrial fibrillation (3) Hypertension: Status: Chronic Assessment and plan: Bisoprolol as above. Once she is euvolemic consideration should be given for an NALINI inhibitor or angiotensin receptor sergio. Qualifiers: Hypertension type: essential hypertension Qualified Code(s): I10 - Essential (primary) hypertension (4) Discharge planning issues: Status: Acute Assessment and plan: Discharge home once her atrial fibrillation and CHF are controlled. She will be discharged with visiting nurse to monitor her car diovascular status and to monitor her medications. Subjective Subjective Interval history since last seen: Patient did not feel well this morning however her afib rate was not well controlled running in the 110s to 130s. Since that time I discontinued her diltiazem and her metoprolol and started on bisoprolol 5 mg daily. Since she received her bisoprolol her A. fib rate has come under control heart rate has remained in the 80s. As far as her diuresis for CHF she is over 6 L net negative cumulative balance and within the last 24 hours she was net -1300 mL after today she is down another liter. I have since discontinued her furosemide drip. She has developed some mild prerenal azotemia with a BUN of 28 and creatinine of 1.1 this morning. Potassium is down as well at 3.0. Since then I have corrected her hypokalemia with oral supplementation and her potassium is now up to 4.5 this afternoon. However her BUN and creatinine are also up today at 13 and 1.7 this afternoon. Exam Narrative Exam Narrative: Elderly female lying in bed in semifowler position in no acute respiratory discomfort. She is hard of hearing but otherwise is alert and oriented. Lungs are clear to auscultation anteriorly but posteriorly she has some bibasilar rales. No rhonchi or wheezing. Heart is irregularly irregular but in a controlled rate. Lower extremities with just a trace of pedal edema. Abdomen is soft and nontender Objective Last Vital Signs Temp 36.2 C L 05/18/20 11:11 Pulse 110 H 05/18/20 11:11 Resp 24 05/18/20 11:11 BP 106/76 05/18/20 11:11 Pulse Ox 93 05/18/20 11:11 Laboratory Results - last 24 hr 05/18/20 05/18/20 06:22 14:10 Sodium 135 L 129 L Potassium 3.0 L D 4.5 D Chloride 91 L 90 L Carbon Dioxide 37.8 H 36.5 H Anion Gap 6.2 2.5 L BUN 28 H D 32 H Creatinine 1.1 H 1.7 H Estimated GFR/1.73 m2 47.79 28.92 Glucose 115 H 124 H Calcium 9.2 8.5 NT-Pro-B Natriuret Pep 1231 H
--- NOTE | 2020-05-18 19:21 | PDOC.CMPRO ---
- If Service Date Differs Date of service: 05/18/20 Time of Service: 19:21 Care Management Progress Note S/O: Deb is sitting in a chair watching television when CM enters the room. She reports feeling better but refused to walk with PT earlier due to not feeling well and being fatigued. She met with Dr. Salinas yesterday for a palliative care consult and patient told her she wanted to go home. Per MD note, medication changes were made today in the hopes of achieving better control of the A. fib rate. Her potassium level was down to 3.0 this morning and has been replenished. CM will continue to follow. A: Deb is a 79 year old female admitted to [facility] on 05/15/20 for acute on chronic CHF and AFIB. P: No change in plan. Anticipate Deb will be discharged home when medically cleared by provider with new RN services to monitor her medications and cardiovascular status. Respiratory therapy continues to assess Deb' need for home O2. Deb will be driven home by family via private vehicle when ready. CM will continue to support Deb, her family, and discharge planning needs.
[2020-05-18] MEDS: traZODone 100 MG TAB PO (20:11)
[2020-05-18] MEDS: risperiDONE 1 MG TAB 2 MG PO (20:13)
[2020-05-19] VITALS (18 sets, daily range): BP systolic 101–135; BP diastolic 60–77; PULSE 80–108; RESP 17–28; TEMP 36.3–37; O2SAT 81–97
[2020-05-19 07:29] LABS: Anion Gap 2.7 mmol/L (3-11); BUN 31 mg/dL (7-18); CO2 38.3 mmol/L (21.0-32.0); Chloride 100 mmol/L (98-107); Estimated GFR 53.35 (mL/min/1.73m2); Glucose 114 mg/dL (74-106); Potassium 4.3 mmol/L (3.5-5.1); Sodium 141 mmol/L (136-145)
[2020-05-19] MEDS: Lactobacillus Acidophilus CAP 1 CAP PO ×2 (08:08→19:59)
[2020-05-19] MEDS: risperiDONE 0.5 MG TAB PO ×2 (08:08→11:58)
[2020-05-19] MEDS: Aspirin E.C. 81 MG TABEC PO (08:08)
[2020-05-19] MEDS: LORazepam 0.5 MG TAB PO ×2 (08:08→11:58)
[2020-05-19] MEDS: Sertraline 50 MG TAB PO (08:08)
[2020-05-19] MEDS: Apixaban 5 MG TAB PO ×2 (08:08→19:59)
[2020-05-19] MEDS: Pantoprazole 20 MG TABCR PO (08:08)
[2020-05-19] MEDS: Magnesium Oxide 400 MG TAB PO (08:08)
[2020-05-19] MEDS: Bisoprolol 5 MG TAB PO (08:08)
[2020-05-19] MEDS: Mometasone 220 MCG 14 DOSE INHALER 2 PUFF IH ×2 (08:32→19:59)
--- NOTE | 2020-05-19 10:39 | W.NUTRFU ---
Date of service: 05/19/20 Time of Service: 10:39 Nutritional Follow up NOTE: 79 year old female admitted with CHF, followed by pallative care. BMI indicates obesity, stable > 1 year. Following Heart Healthy Diet with adequate intake. Not considered at nutritional risk. Time Spent in Nutritional Counseling and Treatment: 0
[2020-05-19] MEDS: Digoxin 0.25 MG TAB PO ×2 (11:56→18:00)
--- NOTE | 2020-05-19 15:30 | PGE_ITS ---
Date of Service Date of service: 05/19/20 Time of Service: 15:30 Assessment and Plan Assessment and plan (1) Atrial fibrillation: Status: Chronic Assessment and plan: cont. bisoprolol and add digoxin to her regmimen. I will digitalize her today then start low dose digoxin 0.125 mg for maintenance. She will need careful monitoring of her potassium and renal function. Qualifiers: Atrial fibrillation type: unspecified Qualified Code(s): I48.91 - Unsp ecified atrial fibrillation (2) Congestive heart failure: Status: Chronic Assessment and plan: Acute on chronic diastolic congestive heart failure exacerbated by rapid atrial fibrillation in the setting of LVH. Resume low dose lasix 20 mg daily now that her renal function has recovered. Echo done 05/16 demonstrates normal systolic LV function w/ LVEF 60-65% with mild LVH. RV size and function are normal. She has mild PHTN. she has biatrial enlargement but only mild MR. Qualifiers: Heart failure chronicity: acute on chronic Heart failure type: diastolic Qualified Code(s): I50.33 - Acute on chronic diastolic (congestive) heart failure (3) Hypertension: Status: Chronic Assessment and plan: Bisoprolol as above. If her bp is not well controlled on bisoprolol then could consider addition of NALINI-I or ARB. Qualifiers: Hypertension type: essential hypertension Qualified Code(s): I10 - Essential (primary) hypertension (4) Discharge planning issues: Status: Acute Assessment and plan: Discharge home once her atrial fibrillation and CHF are controlled. She will be discharged with visiting nurse to monitor her cardiovascular status and to monitor her medications. Subjective Subjective Interval history since last seen: Patient feels better today. She denies dyspnea. Her oxygen supplementation is down to 1 lpm NC and her SPO2 has been running 93%. She denies any CP. Her rhythm remains afib w/ variable rate control. Rate has been in the 80's to low 100's w/ increased rates w/ activity. I will continue her bisoprolol but am adding digoxin to her regimen. I have taken her off her diltiazem since increasing her dose to 180 mg per day did not control her rate. She remains on apixaban for anticoagulation and stroke preven tion. Her renal function has recovered. Her creatinine is now down to 1.0 and BUN 31. I will resume her furosemide at reduced dose of 20 mg daily and continue w/ potassium supplementation. her K+ remains normal at 4.3. Hopefully if her afib is well controlled on the bisoprolol and digoxin and her renal function and electrolytes are ok, then she can be discharged tomorrow. Exam Narrative Exam Narrative: Elderly female sitting up in her chair alert and oriented although hard of hearing Lungs are clear anteriorly posteriorly with still some fine basilar rales Heart is irregularly irregular to slightly tachycardic Abdomen soft and nontender Lower extremities without pitting edema Objective Last Vital Signs Temp 36.3 C L 05/19/20 11:50 Pulse 108 H 05/19/20 11:56 Resp 20 05/19/20 11:50 BP 125/77 05/19/20 11:50 Pulse Ox 93 05/19/20 11:50 Laboratory Results - last 24 hr 05/19/20 07:09 Sodium 141 D Potassium 4.3 Chloride 100 Carbon Dioxide 38.3 H Anion Gap 2.7 L BUN 31 H Creatinine 1.0 D Estimated GFR/1.73 m2 53.35 Glucose 114 H Calcium 9.0
--- NOTE | 2020-05-19 15:31 | PT.INTREAT ---
Date of service: 05/19/20 Time of Service: 09:05 PT Notes Visit Reasons: ACUTE ON CHRONIC CHF, AFIB Inpatient Physical Therapy Treatment Note [facility] Date: 05/19/2020 PRECAUTIONS: Fall SUBJECTIVE: Deb is pleasant and agreeable to participating in PT. She expresses that she hopes to reutrn to home soon. She also feels that she is at her baseline level of function, currently. OBJECTIVE: PAIN: No c/o pain BED MOBILITY/TRANSFERS Supine-sit: I Sit-stand: SBA Stand-sit: SBA GAIT Assistive Device: FWW Weight bearing: Full Assist: CGA-SBA in a.m.; SBA in p.m. Distance: 40' in a.m.; 250' in p.m. Deviation: Slow pace THEREX: Patient completes a LE strengthening program, in a seated position in both a.m. and p.m., as per flow sheet. STAIRS: Up/down 3x4 and 2x6 using B rails and a step-over pattern with supervision. ASSESSMENT: Patient tolerated a significant progression in gait distance with FWW support and SBA. She would benefit from continued gait training for improved activity tolerance and global strengthening. PLAN: Continue with global strengthening and gait training TREATMENT CODE/TIME: Session 1: 25 minutes; [id number], 92413 (09:05) Session 2: 35 minutes; [id number] x2 (14:30)
[2020-05-19] MEDS: Furosemide 20 MG TAB PO (16:19)
--- NOTE | 2020-05-19 17:49 | PDOC.CMPRO ---
- If Service Date Differs Date of service: 05/19/20 Time of Service: 17:49 Care Management Progress Note S/O: Deb was sitting up in her chair when CM met with her. She reported that she would like to return home as soon as possible. Per report, she was on 1L and has been about 93%. She worked well with PT today, and reported that she feels that she is at her baseline. CM will continue to follow. A: Deb is a 79 year old female admitted to [facility] on 05/15/20 for acute on chronic CHF and AFIB. P: No change in plan. Anticipate Deb will be discharged home when medically cleared by provider with new RN services to monitor her medications and cardiovascular status. Respiratory therapy continues to assess Deb' need for home O2. Deb will be driven home by family via private vehicle when ready. CM will continue to support Deb, her family, and discharge planning needs.
--- NOTE | 2020-05-19 19:44 | W.PALPGNOTE ---
Date of service: 05/19/20 Time of Service: 17:44 Assessment and Plan Assessment and plan (1) Congestive heart failure: Status: Chronic Qualifiers: Heart failure type: diastolic Heart failure chronicity: acute on chronic Qualified Code(s): I50.33 - Acute on chronic diastolic (congestive) heart failure (2) DNR (do not resuscitate): Status: Acute (3) Pulmonary hypertension: Status: Acute (4) Palliative care patient: Status: Acute Assessment and plan: Deb is adapting very well to the hospital. She was very reluctant to come into the hospital for several weeks. Her A. fib is getting to be under better control. She is taking diuretics regularly. I will follow up with her outpatient overall she is doing well Subjective Subjective Interval history since last seen: Deb is feeling better. Today she did get up and walk around with physical therapy. She is hoping to go home in another day or 2. She has been eating well, bowel movements have been good. She continues to be short of breath but no worse than what it had been in the past Exam Narrative Exam Narrative: Sitting in her chair, very pleasant and conversant. This is unusual for Deb. She is usually a person a few words. Her lungs do have crackles on the right side about one third of the way up. Her heart remains fairly fast at about 95. She does not have any edema in her legs. She can speak in 6-8 word sentences without taking a breath Objective Last Vital Signs Temp 98.4 F 05/19/20 15:39 Pulse 105 H 05/19/20 18:00 Resp 20 05/19/20 15:39 BP 101/67 05/19/20 15:39 Pulse Ox 93 05/19/20 15:39 Laboratory Results - last 24 hr 05/19/20 07:09 Sodium 141 D Potassium 4.3 Chloride 100 Carbon Dioxide 38.3 H Anion Gap 2.7 L BUN 31 H Creatinine 1.0 D Estimated GFR/1.73 m2 53.35 Glucose 114 H Calcium 9.0
[2020-05-19] MEDS: Potassium Chloride 20 MEQ TABCR PO (19:59)
[2020-05-19] MEDS: traZODone 100 MG TAB PO (21:14)
[2020-05-19] MEDS: risperiDONE 1 MG TAB 2 MG PO (21:14)
[2020-05-19] MEDS: Normal Saline Flush 10 ML SYR IVP (21:21)
[2020-05-20] VITALS (20 sets, daily range): BP systolic 100–146; BP diastolic 65–76; PULSE 66–115; RESP 16–24; TEMP 36.1–36.9; O2SAT 88–98
[2020-05-20] MEDS: Digoxin 0.25 MG TAB PO ×2 (00:47→06:18)
[2020-05-20 07:25] LABS: Anion Gap 2.5 mmol/L (3-11); BUN 29 mg/dL (7-18); CO2 36.5 mmol/L (21.0-32.0); CREATININE 0.9 mg/dL (0.55-1.02); Calcium 8.8 mg/dL (8.5-10.1); Chloride 95 mmol/L (98-107); Glucose 109 mg/dL (74-106); NT-proBNP 3112 pg/mL (<300); Sodium 134 mmol/L (136-145)
[2020-05-20] MEDS: Normal Saline Flush 10 ML SYR IVP (07:46)
[2020-05-20] MEDS: Furosemide 20 MG TAB PO (07:47)
[2020-05-20] MEDS: Pantoprazole 20 MG TABCR PO (07:47)
[2020-05-20] MEDS: Lactobacillus Acidophilus CAP 1 CAP PO ×2 (07:47→20:09)
[2020-05-20] MEDS: risperiDONE 0.5 MG TAB PO ×2 (07:47→12:25)
[2020-05-20] MEDS: Aspirin E.C. 81 MG TABEC PO (07:47)
[2020-05-20] MEDS: Apixaban 5 MG TAB PO ×2 (07:47→20:09)
[2020-05-20] MEDS: Magnesium Oxide 400 MG TAB PO (07:47)
[2020-05-20] MEDS: LORazepam 0.5 MG TAB PO ×2 (07:48→12:25)
[2020-05-20] MEDS: Acetaminophen 325 MG TAB PO (07:48)
[2020-05-20] MEDS: Sertraline 50 MG TAB PO (07:48)
[2020-05-20] MEDS: Potassium Chloride 20 MEQ TABCR PO ×3 (07:48→20:09)
[2020-05-20] MEDS: Bisoprolol 5 MG TAB PO (07:49)
[2020-05-20] MEDS: Mometasone 220 MCG 14 DOSE INHALER 2 PUFF IH ×2 (09:30→20:09)
--- NOTE | 2020-05-20 12:45 | DI.RAD_ITS ---
EXAM: XR CHEST 2V PA LATERAL CLINICAL HISTORY: follow up chf TECHNIQUE: 2D digital imaging was performed. COMPARISON: CR XR CHEST 2V PA LATERAL from 11/22/2018 FINDINGS: MEDIASTINUM: Normal. HEART: Cardiomegaly. PULMONARY VASCULATURE: Normal. Atherosclerosis and tortuosity of the thoracic aorta. The superior as pect of an abdominal aortic stent is seen on both the frontal and lateral views. LUNGS: No focal consolidating infiltrates. PLEURAL SPACE: No pleural effusion or pneumothorax. BONE:Within normal limits for the patient's age. OTHER FINDINGS:Normal. IMPRESSION: Cardiomegaly. No acute pulmonary process. DATA REPOSITORY: RADIATION DOSE DELIVERED:
[2020-05-20] MEDS: Furosemide 20 MG/2 ML VIAL IVP (13:46)
--- NOTE | 2020-05-20 14:36 | CHAPLAIN ---
Deb was sitting up in her chair when I visited. She talked about how many people have been coming and going in her room and that it's difficult to keep up with who everyone is. I explained my role and offered support. When I asked if she'd been in touch with family, she said a sister, who hasn't called Deb in a year, found out that Deb was in the hospital and called her here. Deb appears to be well supported by family, and is looking forward to going home.
--- NOTE | 2020-05-20 15:44 | PT.INTREAT ---
Date of service: 05/20/20 Time of Service: 08:50 PT Notes Visit Reasons: ACUTE ON CHRONIC CHF, AFIB Inpatient Physical Therapy Treatment Note [facility] Date: 05/20/2020 PRECAUTIONS: Fall SUBJECTIVE: Deb is pleasant and agreeable to participating in PT. She expresses that she hopes to return to home soon. OBJECTIVE: PAIN: No c/o pain BED MOBILITY/TRANSFERS Sit-stand: S Stand-sit: S Bed-chair: S Chair-bed: S GAIT Assistive Device: FWW Weight bearing: Full Assist: S Distance: 300' in a.m.; 200' x2 in p.m. Deviation: Slow pace; stand rest in a.m.; seated rest in p.m. THEREX: Patient completes a LE strengthening program, in a seated position, as per flow sheet. TOILETING: Patient toileted with supervision ASSESSMENT: Patient tolerated session well without complaint. She would benefit from continued gait training for improved activity tolerance and global strengthening. PLAN: Continue with global strengthening and gait training TREATMENT CODE/TIME: Session 1: 20 minutes; [id number] (08:50) Session 2: 20 minutes; [id number] x2 (15:15)
--- NOTE | 2020-05-20 18:02 | PDOC.CMPRO ---
- If Service Date Differs Date of service: 05/20/20 Time of Service: 18:02 Care Management Progress Note S/O: Deb was sitting up in her chair when CM met with her. Per report, she required additional O2 today, delaying her discharge. CM discussed her discharge plan, and Deb agreed to RN for med management post discharge. CM discussed this with the MD, who was in agreement. CM will continue to follow. A: Deb is a 79 year old female admitted to [facility] on 05/15/20 for acute on chronic CHF and AFIB. P: Anticipate Deb will be discharged home when medically cleared by provider with new RN services to monitor her medications and cardiovascular status. Respiratory therapy continues to assess Deb' need for home O2. Deb will be driven home by family via private vehicle when ready. CM will continue to support Deb, her family, and discharge planning needs.
[2020-05-20 19:34] LABS: C Diff PCR Negative (Negative)
[2020-05-20] MEDS: traZODone 100 MG TAB PO (21:47)
[2020-05-20] MEDS: risperiDONE 1 MG TAB 2 MG PO (21:47)
[2020-05-21] VITALS (7 sets, daily range): BP systolic 104–132; BP diastolic 64–76; PULSE 78–123; RESP 16–22; TEMP 36.6–36.9; O2SAT 86–95
[2020-05-21] MEDS: Mometasone 220 MCG 14 DOSE INHALER 2 PUFF IH (07:52)
[2020-05-21] MEDS: Normal Saline Flush 10 ML SYR IVP (08:30)
[2020-05-21] MEDS: Lactobacillus Acidophilus CAP 1 CAP PO (08:31)
[2020-05-21] MEDS: LORazepam 0.5 MG TAB PO ×2 (08:31→11:39)
[2020-05-21] MEDS: Docusate Sodium 100 MG CAP PO (08:31)
[2020-05-21] MEDS: Magnesium Oxide 400 MG TAB PO (08:31)
[2020-05-21] MEDS: Potassium Chloride 20 MEQ TABCR PO (08:31)
[2020-05-21] MEDS: Aspirin E.C. 81 MG TABEC PO (08:32)
[2020-05-21] MEDS: risperiDONE 0.5 MG TAB PO ×2 (08:32→11:40)
[2020-05-21] MEDS: Furosemide 20 MG TAB PO (08:32)
[2020-05-21] MEDS: Sertraline 50 MG TAB PO (08:32)
[2020-05-21] MEDS: Pantoprazole 20 MG TABCR PO (08:32)
[2020-05-21] MEDS: Bisoprolol 5 MG TAB PO (08:32)
[2020-05-21] MEDS: Apixaban 5 MG TAB PO (08:32)
[2020-05-21] MEDS: Digoxin 0.125 MG TAB PO (10:51)
--- NOTE | 2020-05-21 14:30 | HOLTER_ITS ---
APPROVED REPORT Exam Type: HOLTER MONITOR APPLICATION Patient Location: I Conclusion This was a 24-hour Holter monitor ordered for atrial fibrillation Atrial fibrillation was present throughout with an average heart rate of 87. Minimum was 67, maximum 119 There were very rare isolated ventricular ectopic beats There were no pauses greater than 3 seconds No patient symptoms were reported
--- NOTE | 2020-05-21 14:32 | DSE_ITS ---
Date of service: 05/21/20 Time of Service: 14:32 DS: Diagnosis Discharge Diagnosis (1) Atrial fibrillation: Status: Chronic Asessment and Plan: Atrial fibrillation was not well controlled despite titration of her metoprolol and diltiazem. Patient was later switched to bisoprolol which seemed to have a better effect in terms of her rate control nevertheless she still needed the addition of digoxin to achieve adequate rate control. Patient will be discharged home with a Holter monitor for 48 hours to assess stability of her atrial fibrillation. If her blood pressure will allow her bisoprolol dose could be uptitrated. If her renal function remained stable after restarting furosemide her digoxin could also be uptitrated to 0.25 mg daily. (2) Congestive heart failure: Status: Chronic Asessment and Plan: Patient was ruled out for an acute ischemic event with serial troponin I levels that were normal. proBNP was elevated on admission at 3100 with diuretics came down to 1200. However patient developed azotemia with a BUN of 32 and creatinine 1.7 necessitating holding her furosemide for the last 2 days prior to discharge. Subsequent BNP at discharge was elevated at 3100 although clinically her CHF had improved. At the time of discharge her BUN and creatinine normalized to 29 and 0.9. Echocardiogram was performed and showed preservation of her LV function with ejection fraction of 60 to 65% with mild concentric LVH and normal wall motion. Right ventricular size and function was grossly normal with mild pulmonary hypertension with RVSP of 35 mm. Patient has severely dilated left atrium and mildly dilated right atrium along with mild mitral regurgitation. Patient is being discharged home on maintenance diuretic of furosemide 20 mg daily along with potassium 20 mEq p.o. twice daily. (3) Hypertension: Status: Chronic (4) Discharge planning issues: Status: Acute Asessment and Plan: Patient is being discharged on home oxygen at 2 L/min per nasal cannula. Ambulatory pulse oximetry was performed prior to discharge and demonstrated adequate oxygen saturation 93% on 2 L/min per nasal cannula. Patient will be set up with home health nursing to monitor her CHF including monitoring and obtaining labs and coordinating medication changes with her PCP as well as education of the patient on diet management of CHF. Discharge Plan Disposition Patient Disposition: HOME W/HOME HEALTH SERVICE Condition: Improving Discharge Details Reason For Visit: ACUTE ON CHRONIC CHF, AFIB Admit Date/Time: 05/17/20 11:20 Admit Provider: Rosendo Seals Attending Provider: Rosendo Seals Primary Care Provider: Carolin Salinas Hospital Course Hospital Course: 79-year-old female history of chronic atrial fibrillation (maintained on metoprolol and diltiazem CD and anticoagulated with apixaban) and COPD and heart failure with preserved ejection fraction presented with increasing exertional dyspnea, fatigue and bilateral lower leg edema without chest discomfort. She was found to be in acute congestive heart failure with a proBNP in the 3000's with negative troponin I levels. Her oxygen saturation reportedly was 82% on room air. She was placed on supplemental oxygen and given IV Lasix. Nasopharyngeal swab was obtained and was negative for SARS-CoV-2. CT of the chest was done and showed no evidence of pulmonary pulmonary embolus and no infiltrates but cardiomegaly. EKG showed no ischemic changes. Patient was admitted to the hospital after being given 40 mg of Lasix IV push. She was placed on a Lasix drip and further serial troponin levels were obtained all of w hich came back negative. Patient developed prerenal azotemia with a BUN of 32 creatinine 1.7 that necessitated discontinuation of her Lasix. She developed hypokalemia with potassium of 2.9 which was corrected with oral supplementation. Because her atrial fibrillation rate was not well controlled despite titration of her diltiazem and her Lopressor she was switched to bisoprolol but eventually required digitalization. Her azotemia resolved with holding of her Lasix. At the time of discharge her BUN and creatine improved to a level of 29 and 0.9. Potassium is corrected to 4.0. The time of discharge furosemide will be resumed at 20 mg daily along with potassium supplementation. She will be discharged home on bisoprolol 5 mg daily along with digoxin 0.125 mg daily. 48 hours after was applied at the time of discharge. Echocardiogram was performed during this hospitalization showed preserved left ventricular function with an EF of 60 to 65% with mild concentric LVH and no wall motion abnormalities. RV size and function was grossly normal with mild pulmonary hypertension. Patient has biatrial enlargement and mild mitral regurgitation. Although we tried to get her off oxygen she still required oxygen at the time of discharge and respiratory therapy arrange for home oxygen at 2 L/min per nasal cannula. And ambulatory pulse oximetry was done prior to discharge and demonstrated the 2 L/min per nasal cannula maintain her saturation at 93%. Physical therapy worked with the patient during her hospital stay and at the time of discharge they recommend continued home health physical therapy upon discharge for global strengthening and gait training. She was able to walk with a front wheeled walker with full weightbearing with just standby assistance and she walked at 300 feet at a slow pace with no shortness of breath. Home Meds and New Rx's Prescriptions: New bisoprolol fumarate 5 mg Tablet 5 mg PO DAILY Qty: 30 RF: 0 digoxin 125 mcg (0.125 mg) Tablet 125 mcg PO DAILY Qty: 30 RF: 0 furosemide 20 mg Tablet 20 mg PO DAILY Qty: 30 RF: 0 magnesium oxide 400 mg (241.3 mg magnesium) Tablet 400 mg PO DAILY Qty: 30 RF: 0 potassium chloride [Klor-Con M20] 20 mEq Tablet,Er Particles/Crystals 20 meq PO BID Qty: 60 RF: 0 Continued Eliquis 5 mg tablet 5 mg PO BID Qty: 180 RF: 5 trazodone 100 mg tablet 100 mg PO HS Qty: 90 RF: 5 risperidone [Risperdal] 2 mg tablet 2 mg PO HS Qty: 90 RF: 5 sertraline 50 mg tablet 50 mg PO DAILY Qty: 90 RF: 5 Lactobacillus acidophilus 1 EACH tablet 1 ea PO BID RF: 0 Immodium 1 - 2 cap PO PRN RF: 0 aspirin [Aspir-81] 81 MG tablet,delayed release (DR/EC) 81 mg PO DAILY RF: 0 albuterol sulfate 90 mcg/actuation HFA aerosol inhaler 2 puff IH Q4H PRN (Reason: shortness of breath) Qty: 18 RF: 6 risperidone [Risperdal] 0.5 mg tablet See Rx Instructions PO .COMPLEX Qty: 180 RF: 5 lorazepam 0.5 mg tablet 0.5 mg PO BID Qty: 180 RF: 4 fluticasone propionate 220 mcg/actuation HFA aerosol inhaler 1 puff IH BID Qty: 12 RF: 12 acetaminophen [Tylenol] 325 MG tablet 650 mg Q8H PRN PRNRF: 0 Discontinued metoprolol tartrate 50 mg tablet 25 mg PO BID Qty: 180 RF: 5 diltiazem HCl 120 mg capsule,extended release 24 hr 120 mg PO DAILY Qty: 90 RF: 4 Discharge Instructions Instructions: Heart Failure (DC), A-fib (Atrial Fibrillation) (DC) Stand Alone Forms: Nursing Discharge Form Referrals: Carolin Salinas MD, [place] [Primary Care Provider] - 05/29/20 1:40 pm Activity:: Activity as Tolerated Equipment/Supplies:: 2 LPM Diet:: Low Sodium Discharge Orders Discharge Orders: Discharge Order (Routine); Ordered 05/21/20 Ordered By: Rosendo Seals Other Ambulatory Orders: Basic Metabolic Panel (Routine) Timeframe: 5 Days Facility: [facility] - Location: Laboratory Outpatient Ordered By: Rosendo Seals Magnesium (Routine) Timeframe: 5 Days Facility: [facility] - Location: Laboratory Outpatient Ordered By: Rosendo Seals DS: Summary Time Spent with Patient providing and/or coordinating discharge services: Greater than 30 minutes Status at Discharge Functional status at discharge: uses cane/walker Overall status at discharge: patient is progressing back to baseline Mental Status: mental status grossly normal Speech and Movement: speech and movement normal Mood: congruent mood Affect: normal affect Exam Narrative Exam Narrative: Elderly female sitting up in her chair alert and oriented although hard of hearing Lungs are clear anteriorly posteriorly with still some fine basilar rales Heart is irregularly irregular rate well controlled Abdomen soft and nontender Lower extremities without pitting edema Psych Mental Status: mental status grossly normal Speech and Movement: speech and movement normal Mood: congruent mood Affect: normal affect DS: Data Vitals/I&O Vitals and I&O: Vital Signs Temperature 36.9 C 05/21/20 11:18 Temperature Source Temporal Artery Scan 05/21/20 11:18 Pulse 88 05/21/20 11:18 Pulse Rhythm Irregular 05/21/20 08:25 Pulse 124 H 05/15/20 19:50 Respiratory Rate 20 05/21/20 11:18 Respiratory Effort Non-Labored 05/21/20 08:25 Respiratory Depth Normal 05/21/20 08:25 Respiratory Pattern Normal 05/21/20 08:25 Blood Pressure 104/67 05/21/20 11:18 Blood Pressure Mean 68 05/15/20 19:45 Blood Pressure Position Supine 05/15/20 15:57 Pulse Oximetry 93 05/21/20 11:18 Oxygen Delivery Method Room Air 05/21/20 11:18 Oxygen Flow Rate 0 05/21/20 11:18 Pain Level 0 05/21/20 11:18 Comment 05/21/20 04:05 Intake & Output 05/20/20 05/21/20 05/21/20 23:59 11:59 23:59 Intake Total 730 / 1070 480 / 680 200 / 680 Output Total 800 / 1175 150 / 150 Balance -70 / -105 330 / 530 200 / 530 Weight 78 kg Intake: Oral 730 / 1070 480 / 680 200 / 680 Output: Urine 800 / 1175 150 / 150 Other: Urine Color Yellow Pale Yellow Yellow Urine Appearance Clear Clear Urine Odor Normal None Comment pT voided 300 in commode and void some in the brief. pt was incont inent Stool Size Large Stool Characteristics Liquid Brown Voiding Methods Bedside Commode Bedside Commode Diaper Incontinent Data Completed and Pending Labs on day of discharge: Labs from last 24 hours 05/20/20 18:39 Stl C.difficile Tox PCR Negative [facility] Medical History (Updated 05/21/20 @ 14:30 by Rosendo Seals) Abdominal aortic aneurysm (05/31/12) 4.4 cm 07/20 s/p repair 2013 Anxiety (07/25/17) Arm skin lesion, left (12/09/15) Atherosclerosis Atherosclerosis Bruit Bruit of left carotid artery mild-mod. plaque per U/S Complete edentulism, unspecified Congestive heart failure COPD (chronic obstructive pulmonary disease) COPD (chronic obstructive pulmonary disease) with emphysema Coronary disease CVD (cardiovascular disease) Dependence on supplemental oxygen Depression a. with psychotic features Diarrhea (11/19/14) 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 02/18-09/19, normal metanephrines, normal dexamethasone suppression. 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 hypokalemia b. 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 Positive neutrophil AB mostlikely indicating ulcerative colitis Palpitations 08/26/14; FREQ PVC BY HOLTER Palpitations Right pontine CVA [facility]-01/30/16; 8X5 mm Seborrheic keratosis (01/01/16) punch/shave biopsy skin of left arm Seborrheic keratosis (01/01/16) Shortness of breath (10/14/16) SVT (supraventricular tachycardia) (09/15/14) Tubular adenoma of colon (03/04/14) Urinary frequency (08/21/15) Vascular insufficiency of intestine (06/12/15) Weight loss (04/02/14) Surgical History Appendectomy Biopsy, Soft Tissue (01/01/16) Punch/shave biospy of skin of left arm, seborrheic keratosis Colectomy (09/18/14) DR. GRAJEDA Hemicolectomy [facility]; 09/15/14; RIGHT History of bilateral ligation of fallopian tubes History of partial colectomy 09/15/14 right hemicolectomy w/ileocolic anastomosis History of partial surgical removal of colon (09/15/14) Ligation of fallopian tube S/P AAA repair S/P tubal ligation Status post appendectomy Family History Mother Essential hypertension Alzheimer's disease Father Heart disease Breast cancer Prostate cancer Sister Myocardial infarction Sister Myocardial infarction Brother Cancer Sister No problems noted. Sister No problems noted. Brother Substance abuse Brother Substance abuse Brother Substance abuse Cancer Son No problems noted. Daughter No problems noted. Social History Smoking/Tobacco Use Status: Former Tobacco Use Smoking risk assessment performed?: Yes Alcohol Intake: never Drug use: Never Substance use type: does not use Household members: other Details: 4 Pets and animals: Yes Pets and animals: cat(s) and dog(s) Current gender identity: decline to answer What is your relationship status?: refused to answer How often do you talk on the phone with friends or family?: decline to answer How often do you get together with friends or relatives?: decline to answer How often do you attend jew or episcopalian services?: decline to answer Do you belong to any clubs or organized social groups?: decline to answer Panel score (0-1 are the most socially isolated patients): 0 What type of physical activity do you participate in: none Lelo/Amish: No preference Special lelo needs: No Do you feel safe at home: Yes Do you feel safe in your relationship?: Yes
--- NOTE | 2020-05-21 14:41 | PDOC.HHF2F ---
Home Health Certification Home Health Certification: 1. Encounter Date and Reason I certify that NOEMI LORENZO was seen by Rosendo Seals on 05/21/20 and that I had a [id number] encounter with this patient that meets the physician face to face encounter requirements. 2. Clinical Findings Supporting Skilled Need and Homebound Status I certify that home health services are medically necessary, include either intermittent usp and/or physical/speech therapy, and that this patient is homebound in that absences from the home require considerable and taxing effort and are infrequent or of short duration, or are attributable to the need to receive medical care. [X] (a) Attached documentation from encounter provides clinical findings supporting skilled need and homebound status (including what assistance patient requires to leave the home). The encounter with the patient was in whole, or in part, for the following medical condition, which is the primary reason for home health care: ACUTE ON CHRONIC CHF, AFIB Chcf: Home health nurse is requested to monitor patient's management of her atrial fibrillation and congestive heart failure including monitoring her medication usage as well as monitoring her response in terms of her heart rate and blood pressure and oxygen saturation. As well as education about diet for CHF and arrange for follow-up lab draws and coordinating results with her PCP Physical Therapy: Speech Therapy: Homebound: Patient's acute exacerbation of CHF due to her atrial fibrillation as well as her underlying COPD limits her ability to ambulate outside her home and makes it unsafe for her to travel outside her home to seek medical care. 3. Certification and Authentication I certify that I composed the above information based on my clinical judgement relating to this patient's medical condition and, if applicable, clinical findings communicated to me by the NPP or inpatient physician who performed the Home Health Referral. All further orders will be obtained through ____Dr. Carolin Salinas (Community Based Physician - PCP)
--- NOTE | 2020-05-21 15:00 | PT.INTREAT ---
Date of service: 05/21/20 Time of Service: 09:55 PT Notes Visit Reasons: ACUTE ON CHRONIC CHF, AFIB Inpatient Physical Therapy Treatment Note [facility] Date: 05/21/2020 PRECAUTIONS: Fall SUBJECTIVE: Deb is pleasant and agreeable to participating in PT. She expresses that she hopes to return to home soon. OBJECTIVE: Gait training completed in collaboration with Respiratory Therapy who assessed patient's supplemental oxygen requirements. Please see their note for specific vital sign details. PAIN: No c/o pain BED MOBILITY/TRANSFERS Sit-stand: S Stand-sit: S GAIT Assistive Device: FWW Weight bearing: Full Assist: S Distance: 300' Deviation: Slow pace, no c/o SOB THEREX: Patient completes a LE strengthening program, in a standing position, as per flow sheet. ASSESSMENT: Patient tolerated session well without complaint. She would benefit from continued gait training for improved activity tolerance and global strengthening. PLAN: Continue with global strengthening and gait training via PT upon discharge. TREATMENT CODE/TIME: 20 minutes; 38547 (09:55)
--- NOTE | 2020-05-21 15:39 | RESPIRATORY ---
Pt stated no Preference on home oxygen company. All necessary documents sent to [facility]. Called [facility] approximately 1600 and was told Oxygen would be set up at Pt home and tank would be dropped off for Pt transportation.
--- NOTE | 2020-05-21 16:35 | PDOC.CMDIS ---
- If Service Date Differs Date of service: 05/21/20 Time of Service: 16:35 LACE Index Scoring Tool - Questions: Length of Stay (in days): 4 - 6 Acuity (Admit via E.D.?): Yes Comorbidities: Congestive Heart Failure, Chronic Pulmonary Disease E.D. Visits: 1 - Answers: Total Score: 13 Risk of Readmission: High Risk Care Management Discharge Reason for Hospitalization: Acute on chronic CHF, Afib. Discharge Plan: Deb will return home today with new orders of HH RN, PT. She has new oxygen orders as well, coordinated by RT through [facility]. Mimi, her daughter, will drive her home via private vehicle. She will follow up with her PCP and discharge plan of care. She is happy to be returning home. Patient/Family Education Needs: Review discharge instructions with pt and family, discussion of self care needs and goals of care. Services Needed at Discharge: Home Health Care Services (HH RN, PT), [facility]
--- NOTE | 2020-05-23 16:40 | INDS_ITS ---
Date of service: 05/23/20 PT Notes Visit Reasons: ACUTE ON CHRONIC CHF, AFIB Physical Therapy Inpatient Discharge Summary Date: 05/23/20 Date of service: 05/17/2020 through 05/21/2020 This is a clinical summary of care provided on the duration of dates listed above. No charge was made in the completion of this documentation. Referring Doctor: Dr. Akbar PT Orders: PT CONSULT: limited ability to ambulate Precautions: fall, standard Patient Profile/Admitting Diagnosis: Patient admitted from ER, after presenting with shortness of breath. She was diagnosed with acute on chronic CHF, and admitted for medical management. PMHX: Abdominal aortic aneurysm (05/31/12) 4.4 cm 07/20 s/p repair 2012 Anxiety (07/25/17) Arm skin lesion, left (12/09/15) Atherosclerosis Atherosclerosis Bruit Bruit of left carotid artery mild-mod. plaque per U/S Complete edentulism, unspecified COPD (chronic obstructive pulmonary disease) COPD (chronic obstructive pulmonary disease) with emphysema Coronary disease CVD (cardiovascular disease) Dependence on supplemental oxygen Depression a. with psychotic features Diarrhea (11/19/14) 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 02/18-09/19, normal metanephrines, normal dexamethasone suppression. 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 hypokalemia . 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 She states that she normally gets around independently, but that she has a walker that she uses when she feels she needs it. Equipment Owned/DME: FWW Subjective: NT. See most recent HUMAN RESOURCES ASSISTANT MANAGER notes. Objective: General Observation: NT. See most recent HUMAN RESOURCES ASSISTANT MANAGER notes. Mental Status: NT. See most recent HUMAN RESOURCES ASSISTANT MANAGER notes. Pain: NT. See most recent HUMAN RESOURCES ASSISTANT MANAGER notes. Vital Signs: NT. See most recent HUMAN RESOURCES ASSISTANT MANAGER notes. ROM: Right Upper Extremity: Shoulder flexion to 90 degrees bilat. Elbow and wrist WNL. Left Upper Extremity: Shoulder flexion to 90 degrees. Elbow and wrist WNL> Right Lower Extremity: WFL Left Lower Extremity: WFL Strength: Right Upper Extremity: Shoulder flexion 3-/5. Triceps 4-/5. Theoretical Physics Teacher is weak, but equal. Left Upper Extremity: Shoulder flexion 3-/5. Triceps 4-/5. Theoretical Physics Teacher is weak, but equal. Right Lower Extremity: Hip flexion 4/5. Quads 4+/5. Ankle DF 4/5. Left Lower Extremity: Hip flexion 4/5. Quads 4+/5. Ankle DF 4/5. Bed Mobility/Transfers: Sit-stand: S stand-sit: S Gait: Up to 300 feet with FWW requiing only supervision assist. No report of SOB. SLow monse. Balance: Static Sitting: normal Dynamic Sitting: normal Static Standing: fair Dynamic Standing: fair Assessment: Deb demonstrates improved mobility level during this episode of care as indicated in the goal status below Goals: Goals X1 week 1. Supine-Sit : supervision MET 2. Sit-Supine : supervision MET 3. Sit-Stand : supervision MET 4. Stand-Sit : supervisio MET 5. Bed-Chair : supervision with FWW MET 6. Chair-Bed : supervision with FWW MET 7. Gait : supervision x 25' with FWW MET DISCHARGE RECOMMENDATIONS: Home, without anticipated equipment needs TREATMENT CODE/TIME: LUIS E Thank you for the opportunity to participate in the care of this patient. Sayda Yan PT, DPT, CLT [facility], [place]
== END 2020-05-21 17:32 | disposition home health service (06) | DRG 292 ==
LOC: ER 19:15 → MS 20:08
PROVIDERS: Internal Medicine; Admitting Provider Internal Medicine; Emergency Provider Registered Nurse Emergency; PCP Family Medicine; Visit Provider Internal Medicine
DX: I11.0 Hypertensive heart disease with heart failure (principal); K51.90 Ulcerative colitis, unspecified, without complications; I47.1 Supraventricular tachycardia; F32.3 Major depressive disorder, single episode, severe with psychotic features; I50.33 Acute on chronic diastolic (congestive) heart failure; R09.02 Hypoxemia; F41.9 Anxiety disorder, unspecified; J44.9 Chronic obstructive pulmonary disease, unspecified; I25.10 Atherosclerotic heart disease of native coronary artery without angina pectoris; Z99.81 Dependence on supplemental oxygen; R19.7 Diarrhea, unspecified; K44.9 Diaphragmatic hernia without obstruction or gangrene; Z87.891 Personal history of nicotine dependence; E78.5 Hyperlipidemia, unspecified; K75.81 Nonalcoholic steatohepatitis (NASH); Z86.73 Personal history of transient ischemic attack (TIA), and cerebral infarction without residual deficits; R35.0 Frequency of micturition; I48.91 Unspecified atrial fibrillation; Z98.0 Intestinal bypass and anastomosis status; I27.20 Pulmonary hypertension, unspecified; Z66 Do not resuscitate; E87.6 Hypokalemia
CPT/HCPCS: 36415; 51702; 71275; 80048; 80053; 87493; 87637; 93005; 93306; 94618; 94640; 96374; 97110; 97162; 97530; 99220; 99232; 99233; 99239; 99254; 99285; 71046; 81003; 83735; 83880; 84132; 84484; 85025; 85610; 85730; 93010; 93225; 93226; G0378; J1940; J1941; Q9967

== ENCOUNTER 2020-05-26 15:38 | Outpatient (REF) | payer OTHER, SELFPAY ==
[2020-05-26 17:08] LABS: BUN 12 mg/dL (7-18); CREATININE 0.9 mg/dL (0.55-1.02); Calcium 8.9 mg/dL (8.5-10.1); Chloride 97 mmol/L (98-107); Glucose 140 mg/dL (74-106); Magnesium 1.9 mg/dL (1.8-2.4); Potassium 4.2 mmol/L (3.5-5.1); Sodium 135 mmol/L (136-145)
== END 2020-05-26 15:39 | disposition home or self-care (01) ==
LOC: LBN 15:38
PROVIDERS: PCP Family Medicine; Visit Provider Family Medicine
DX: I50.9 Heart failure, unspecified (principal); Z51.81 Encounter for therapeutic drug level monitoring; Z79.899 Other long term (current) drug therapy
CPT/HCPCS: 80048; 83735

== ENCOUNTER 2020-06-19 14:02 | Outpatient (RCR) | payer OTHER, SELFPAY ==
--- NOTE | 2020-06-19 14:30 | HOLTER_ITS ---
APPROVED REPORT Exam Type: HOLTER MONITOR APPLICATION Reason for Test: dizziness, a fib, bradycardia Patient Location: O Conclusion This was a 48-hour Holter monitor. Rhythm throughout was atrial fibrillation with an average heart r ate of 81. Minimum was 60, maximum 112 There were rare ventricular ectopic beats, no couplets, no ventricular tachycardia The longest pause was 2.2 seconds No patient symptoms were reported
== END 2020-07-11 23:59 | disposition home or self-care (01) ==
LOC: RT 14:02
PROVIDERS: PCP Family Medicine; Visit Provider Family Medicine
DX: R42 Dizziness and giddiness (principal); I48.91 Unspecified atrial fibrillation; R00.1 Bradycardia, unspecified
CPT/HCPCS: 93227; 93225; 93226

== ENCOUNTER 2021-06-03 02:44 | Outpatient (CLI) | payer MEDICARE, SELFPAY ==
[2021-06-03 10:07] LABS: HCT 43.3 % (36.0-46.0); HGB 13.6 g/dL (11.2-15.7); MCH 30.3 pg (27.0-33.0); MCHC 31.4 % (32.0-36.0); MCV 96.4 fL (80-95); MPV 9.7 fL (8.0-11.0); Platelet Count 196 10^3/uL (130-400); RBC 4.49 10^6/uL (3.93-5.22); RDW 13.4 % (11.7-14.6); RDW-SD 47.8 fL; WBC 10.57 10^3/uL (4.4-10.8)
[2021-06-03 10:22] LABS: Hemoglobin A1C 5.7 % (<5.7)
[2021-06-03 10:28] LABS: ESR 4 mm/hr (0-30)
[2021-06-03 11:15] LABS: ALT 17 U/L (14-59); AST 12 U/L (15-37); Albumin 3.5 g/dL (3.4-5.0); Alkaline Phosphatase 76 U/L (46-116); Anion Gap 8.5 mmol/L (3-11); BUN 16 mg/dL (7-18); Bilirubin, Total 0.8 mg/dL (0.2-1.0); CO2 29.5 mmol/L (21.0-32.0); CREATININE 1.1 mg/dL (0.55-1.02); Calcium 8.7 mg/dL (8.5-10.1); Chloride 99 mmol/L (98-107); Estimated GFR 47.67 (mL/min/1.73m2); Glucose 91 mg/dL (74-106); NT-proBNP 2940 pg/mL (<300); Potassium 4.5 mmol/L (3.5-5.1); Sodium 137 mmol/L (136-145); TSH (W/Ref FT4) 1.76 uIU/mL (0.36-3.74); Total Protein 6.4 g/dL (6.4-8.2)
[2021-06-03 11:36] LABS: Digoxin 0.78 ng/mL (0.90-2.00)
== END 2021-06-03 02:45 | disposition home or self-care (01) ==
LOC: LBO 02:45
PROVIDERS: PCP Family Medicine; Visit Provider Family Medicine
DX: I27.20 Pulmonary hypertension, unspecified (principal); I50.33 Acute on chronic diastolic (congestive) heart failure; R63.4 Abnormal weight loss; Z51.81 Encounter for therapeutic drug level monitoring; Z79.899 Other long term (current) drug therapy; E11.9 Type 2 diabetes mellitus without complications
CPT/HCPCS: 36415; 80053; 85027; 85652; 80162; 83036; 83735; 83880; 84443

== ENCOUNTER 2021-06-11 17:08 | Outpatient (REF) | payer MEDICARE, SELFPAY ==
[2021-06-12 15:43] LABS: COVID-19 RT-PCR UVMMC Result Negative (Negative)
== END 2021-06-11 17:09 | disposition home or self-care (01) ==
LOC: LBN 17:08
PROVIDERS: PCP Family Medicine; Visit Provider Family Medicine
DX: Z20.822 Contact with and (suspected) exposure to COVID-19 (principal)
CPT/HCPCS: U0003; U0005

== ENCOUNTER 2021-10-20 03:40 | Outpatient (CLI) | payer MEDICARE, SELFPAY ==
[2021-10-20 12:38] LABS: HCT 41.9 % (36.0-46.0); HGB 13.3 g/dL (11.2-15.7); MCH 30.1 pg (27.0-33.0); MCHC 31.7 % (32.0-36.0); MCV 95 fL (80-95); MPV 10.9 fL (8.0-11.0); Platelet Count 203 10^3/uL (130-400); RBC 4.42 10^6/uL (3.93-5.22); RDW 13.9 % (11.7-14.6); RDW-SD 48.6 fL; WBC 11.57 10^3/uL (4.4-10.8)
[2021-10-20 13:04] LABS: ALT 16 U/L (14-59); AST 12 U/L (15-37); Albumin 3.4 g/dL (3.4-5.0); Alkaline Phosphatase 61 U/L (46-116); Anion Gap 6.7 mmol/L (3-11); BUN 19 mg/dL (7-18); Bilirubin, Total 0.9 mg/dL (0.2-1.0); CO2 32.3 mmol/L (21.0-32.0); Calcium 8.6 mg/dL (8.5-10.1); Chloride 96 mmol/L (98-107); Digoxin 0.82 ng/mL (0.90-2.00); Estimated GFR 53.08 (mL/min/1.73m2); Glucose 80 mg/dL (74-106); Magnesium 1.7 mg/dL (1.8-2.4); Potassium 4.5 mmol/L (3.5-5.1); Sodium 135 mmol/L (136-145); TSH (W/Ref FT4) 1.32 uIU/mL (0.36-3.74); Total Protein 6.1 g/dL (6.4-8.2)
[2021-10-20 13:28] LABS: NT-proBNP 2384 pg/mL (<300)
== END 2021-10-20 03:41 | disposition home or self-care (01) ==
PROVIDERS: PCP Family Medicine; Visit Provider Family Medicine
DX: I50.33 Acute on chronic diastolic (congestive) heart failure (principal); J44.9 Chronic obstructive pulmonary disease, unspecified; R41.89 Other symptoms and signs involving cognitive functions and awareness
CPT/HCPCS: 36415; 80053; 85027; 80162; 83735; 83880; 84443

== ENCOUNTER 2021-10-21 20:23 | Outpatient (REF) | payer MEDICARE, SELFPAY ==
[2021-10-21 12:33] LABS: Clarity Cloudy (Clear); pH 5.5 (5-8)
[2021-10-21 12:34] LABS: Bilirubin Negative (Negative); Blood Small (Negative); Glucose Negative (Negative); Ketones Negative (Negative); Leukocyte Esterase Moderate (Negative); Nitrite Negative (Negative); Urobilinogen 0.2 EU/dL (Up TO 0.2)
[2021-10-21 12:38] LABS: Bacteria Many HPF (Negative); C & S Indicated? Yes; Casts Negative LPF (Negative); Crystals Negative HPF (Negative); Epithelial Cells Rare HPF (Negative); Mucus Negative (Negative); Other Cells Negative (Negative); WBC >50 HPF (0-5)
== END 2021-10-21 20:24 | disposition home or self-care (01) ==
LOC: LBN 20:23
PROVIDERS: PCP Family Medicine; Visit Provider Family Medicine
DX: R82.998 Other abnormal findings in urine (principal); R41.9 Unspecified symptoms and signs involving cognitive functions and awareness
CPT/HCPCS: 87077; 81003; 81015; 87086; 87186

== ENCOUNTER 2022-05-15 14:39 | Inpatient (IN) | payer MEDICARE, SELFPAY ==
[2022-05-15] VITALS (51 sets, daily range): BP systolic 81–130; BP diastolic 45–114; PULSE 91–150; RESP 1–36; TEMP 36.2–36.7; O2SAT 86–98
--- NOTE | 2022-05-15 14:45 | DI.RAD_ITS ---
Exam(s) XR PORTABLE CHEST AP EXAM: XR PORTABLE CHEST AP CLINICAL HISTORY: copd sob. TECHNIQUE: 2D digital imaging was performed. COMPARISON: CR XR CHEST 2V PA LATERAL from 05/20/2020 FINDINGS: Single AP portable view. Cardiomegaly again noted. Mediastinum not widened. Right lung is clear. Slightly increased marking s noted in the left lower lobe. Mild blunting of left costophrenic angle may indicate small amount l eft pleural fluid. Abdominal aortic EVAR again noted. IMPRESSION: Mild increased markings left lower lobe. Possible small amount of left pleural fluid.Recommend nonpo rtable PA and lateral views when clinically possible. Alternatively CT scan. DATA REPOSITORY: RADIATION DOSE DELIVERED:
--- NOTE | 2022-05-15 14:45 | RT.EKG_ITS ---
APPROVED REPORT Exam: Resting ECG Reason for Exam: chf Patient Location: E HR:100 bpm ECG Measurements Heart Rate 100 AXIS VA [id number] P [id number] QRSd 100 QRS 18 QT 304 T -45 QTc 392 Conclusion Atrial fibrillation...V-rate 72-142, irreg A-activity Consider anteroseptal infarct...Q >30mS, dimin R, V1-V2 afib, normal axis, flattened t waves lateral
--- NOTE | 2022-05-15 14:57 | ED.GENADUL_ITS ---
Discharge Plan Disposition Patient Disposition: Admit to [facility] Discharge Details Chief Complaint: RespSymp Clinical Impression: RSV (respiratory syncytial virus infection), Hypoxia, CHF (congestive heart failure), Chronic obstructive pulmonary disease with (acute) exacerbation Primary Care Provider: Carolin Salinas ED Provider: Sekou Okeefe Home Meds and New Rx's Prescriptions: No Action magnesium oxide 400 mg (241.3 mg magnesium) tablet 400 mg PO DAILY Qty: 90 5RF fluticasone propionate 220 mcg/actuation HFA aerosol inhaler 1 puff IH BID Qty: 12 12RF furosemide 20 mg tablet 20 mg PO DAILY Qty: 90 5RF Hold Instructions: Home Medication placed on hold at Doctor's office potassium chloride [Klor-Con M20] 20 mEq tablet,ER particles/crystals 20 meq PO BID Qty: 180 5RF risperidone [Risperdal] 2 mg tablet 2 mg PO HS Qty: 90 5RF sertraline 50 mg tablet 50 mg PO DAILY Qty: 90 5RF trazodone 100 mg tablet 100 mg PO HS Qty: 90 5RF Spiriva with HandiHaler 18 mcg capsule, w/inhalation device 1 cap inhalation DAILY Qty: 90 3RF Rx Instructions: puncture 1 cap using device; one dose = 2 inhalations Lactobacillus acidophilus 1 EACH tablet 1 ea PO BID Immodium 1 - 2 cap PO PRN aspirin [Aspir-81] 81 MG tablet,delayed release (DR/EC) 81 mg PO DAILY Eliquis 5 mg tablet 5 mg PO BID Qty: 180 5RF lorazepam 0.5 mg tablet 0.5 mg PO TID PRN Qty: 270 4RF albuterol sulfate 90 mcg/actuation HFA aerosol inhaler 2 puff IH Q4H PRN (Reason: shortness of breath) Qty: 18 6RF digoxin 125 mcg (0.125 mg) tablet 125 mcg PO DAILY Qty: 90 5RF acetaminophen [Tylenol] 325 MG tablet 650 mg Q8H PRN PRN Medical Decision Making 81-year-old female history of COPD, CHF presents with nonproductive cough shortness of breath and wheezing, bilateral extremity edema on examination, relatively hypotensive and tachycardic on arrival, however relatively nontoxic, speaking in full sentences, alert oriented, saturating in the high 80s on room air. Given DuoNeb and steroids on arrival due to level of wheezing and history of COPD, however there is likely component of CHF as well given peripheral edema. Will obtain basic labs chest x-ray EKG, holding diuretics at this time pending x-ray and bedside ultrasound to assess lung hamm. Disposition pending reassessment and response to medication 15: 14 minimal B-lines on bedside ultrasound. Awaiting chest x-ray. Saturating 96% during nebulized albuterol treatment. Heart rate and blood pressure improved. 16: 14 patient resting comfortably feels better after breathing treatment. Clinically appears improved however tachycardia has likely been exacerbated by albuterol. Blood pressure map of 66 systolic 102, normal mentation. Pending x- ray and COVID swab 17: 26 patient resting comfortably no acute distress. However given persistent hypoxia off room air to the high 80s and RSV positive state in the setting of COPD and CHF will benefit from admission oxygen therapy further diuresis HPI General Date/Time Provider Initiated Documentation: 05/15/22 14:48 . HPI Narrative: 81-year-old female history of COPD, CHF presents with shortness of breath and cough. No recent antibiotics no recent hospitalization. Nonproductive cough. Endorses that she chronically runs hypoxic at home however is not on home oxygen therapy Related Data Home Medications Medication Instructions Recorded Confirmed acetaminophen 325 mg tablet 650 mg Q8H PRN PRN 08/10/14 05/15/22 (Tylenol) Lactobacillus acidophilus 1 1 ea PO BID 03/11/15 05/15/22 billion cell tablet Immodium 1 - 2 cap PO PRN 06/12/15 05/15/22 aspirin 81 mg tablet,delayed 81 mg PO DAILY 11/16/16 05/15/22 release (Aspir-) magnesium oxide 400 mg (241.3 mg 400 mg PO DAILY #90 tabs 06/11/21 05/15/22 magnesium) tablet Spiriva with HandiHaler 18 mcg and 1 cap inhalation DAILY #90 10/13/21 05/15/22 inhalation capsules (tiotropium inhalations bromide) fluticasone propionate 220 1 puff inhalation BID #12 grams 12/10/21 05/15/22 mcg/actuation HFA aerosol inhaler furosemide 20 mg tablet 20 mg PO DAILY #90 tabs 12/10/21 05/15/22 potassium chloride 20 mEq 20 meq PO BID #180 tabs 12/10/21 05/15/22 tablet,extended release(part/cryst) (Klor-Con M) risperidone 2 mg tablet (Risperdal) 2 mg PO HS #90 tabs 12/10/21 05/15/22 sertraline 50 mg tablet 50 mg PO DAILY #90 tabs 12/10/21 05/15/22 trazodone 100 mg tablet 100 mg PO HS #90 tabs 12/10/21 05/15/22 apixaban 5 mg tablet (Eliquis) 5 mg PO BID #180 tabs 01/11/22 05/15/22 lorazepam 0.5 mg tablet 0.5 mg PO TID PRN anxiety #270 tabs 01/25/22 05/15/22 albuterol sulfate 90 mcg/actuation 2 puff inhalation Q4H PRN 02/02/22 05/15/22 aerosol inhaler shortness of breath #18 grams digoxin 125 mcg (0.125 mg) tablet 125 mcg PO DAILY #90 tabs 04/19/22 05/15/22 Previous Rx's Medication Instructions Recorded magnesium oxide 400 mg (241.3 mg 400 mg PO DAILY #90 tabs 06/11/21 magnesium) tablet Spiriva with HandiHaler 18 mcg and 1 cap inhalation DAILY #90 10/13/21 inhalation capsules (tiotropium inhalations bromide) fluticasone propionate 220 1 puff inhalation BID #12 grams 12/10/21 mcg/actuation HFA aerosol inhaler furosemide 20 mg tablet 20 mg PO DAILY #90 tabs 12/10/21 potassium chloride 20 mEq 20 meq PO BID #180 tabs 12/10/21 tablet,extended release(part/cryst) (Klor-Con M) risperidone 2 mg tablet (Risperdal) 2 mg PO HS #90 tabs 12/10/21 sertraline 50 mg tablet 50 mg PO DAILY #90 tabs 12/10/21 trazodone 100 mg tablet 100 mg PO HS #90 tabs 12/10/21 apixaban 5 mg tablet (Eliquis) 5 mg PO BID #180 tabs 01/11/22 lorazepam 0.5 mg tablet 0.5 mg PO TID PRN anxiety #270 tabs 01/25/22 albuterol sulfate 90 mcg/actuation 2 puff inhalation Q4H PRN 11/22/22 aerosol inhaler shortness of breath #18 grams digoxin 125 mcg (0.125 mg) tablet 125 mcg PO DAILY #90 tabs 04/19/22 Allergies Allergy/AdvReac Type Severity Reaction Status Date / Time pneumococcal 7-valent Allergy Mild Local Verified 05/15/22 15:49 conjugate to reaction [From Prevnar] amoxicillin trihydrate AdvReac Intermediate VOMITING Verified 05/15/22 15:49 [From Augmentin] potassium clavulanate AdvReac Intermediate VOMITING Verified 05/15/22 15:49 [From Augmentin] General Stated Complaint: RespSymp DEONNA: 3 Review of Systems Narrative: Review of Systems Constitutional: negative Eyes: negative ENT: negative Cardiovascular: negative Respiratory: Cough, shortness of breath Gastrointestinal: negative : negative Musculoskeletal: negative Skin: negative Neurologic: negative Psych: negative PFSH All Active Problems (Updated 04/12/22 @ 10:47 by Hunter Erwin NP) Conjunctivitis (Acute) Right hip pain (Acute) Cognitive change (Acute) RUQ abdominal pain (Acute) Weight loss, abnormal (Acute ~06/11/21) 30# in last yr Aminah onychomycosis (Acute) Bradycardia (Acute) Encounter for monitoring diuretic therapy (Acute) Congestive heart failure (Chronic) DNR (do not resuscitate) (Acute) Physician orders for life-sustaining treatment (POLST) form indicates patient wish for [id number] status (Acute) Discharge planning issues (Acute) DVT prophylaxis (Acute) Pulmonary hypertension (Acute) Acute on chronic diastolic (congestive) heart failure (Acute) Hypoxia (Acute) ST segment changes on electrocardiogram (Acute) Atrial fibrillation (Chronic) Tachycardia (Acute) Weight loss (Chronic 04/02/14) Urinary frequency (Chronic 08/21/15) Tubular adenoma of colon (Chronic 03/04/14) Shortness of breath (Chronic 10/14/16) 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 Positive neutrophil AB mostlikely indicating ulcerative colitis Increased body mass index (Chronic) Hyperlipidemia (Chronic) Diarrhea (Chronic 11/19/14) Complete edentulism, unspecified (Chronic) Atherosclerosis (Chronic) Anxiety (Chronic 07/25/17) Coronary disease (Chronic) COPD (chronic obstructive pulmonary disease) (Chronic) Hypertension (Chronic) SCHAEFFER (nonalcoholic steatohepatitis) (Chronic) H/O inflammatory bowel disease (Chronic) SVT (supraventricular tachycardia) (Chronic 09/15/14) Medical History (Updated 04/12/22 @ 10:47 by Hunter Erwin NP) Abdominal aortic aneurysm (05/31/12) 4.4 cm 07/20 s/p repair 2013 Arm skin lesion, left (12/09/15) Atherosclerosis Bruit Bruit of left carotid artery mild-mod. 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 02/18-09/19, normal metanephrines, normal dexamethasone suppression. 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 hypokalemia b. 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 GRAJEDA Hemicolectomy [facility]; 09/15/14; RIGHT History of bilateral ligation of fallopian tubes History of partial colectomy 09/15/14 right hemicolectomy w/ileocolic anastomosis History of partial surgical removal of colon (09/15/14) Ligation of fallopian tube S/P AAA repair S/P tubal ligation Status post appendectomy Family History Mother Essential hypertension Alzheimer's disease Father Heart disease Breast cancer Prostate cancer Sister Myocardial infarction Sister Myocardial infarction Brother Cancer Sister No problems noted. Sister No problems noted. Brother Substance abuse Brother Substance abuse Brother Substance abuse Cancer Son No problems noted. Daughter No problems noted. Social History Smoking/Tobacco Use Status: Former Tobacco Use Smoking risk assessment performed?: Yes Alcohol Intake: never Drug use: Never Substance use type: does not use Household members: other Details: 4 Pets and animals: Yes Pets and animals: cat(s) and dog(s) Current gender identity: decline to answer What is your relationship status?: refused to answer How often do you talk on the phone with friends or family?: decline to answer How often do you get together with friends or relatives?: decline to answer How often do you attend worship or pentecostalism services?: decline to answer Do you belong to any clubs or organized social groups?: decline to answer Panel score (0-1 are the most socially isolated patients): 0 What type of physical activity do you participate in: none Lelo/Roman Catholic: No preference Special lelo needs: No Do you feel safe at home: Yes Do you feel safe in your relationship?: Yes Exam Narrative Exam Narrative: Physical Examination General: alert, awake, cooperative, resting comfortably, no acute distress HEENT: normocephalic, atraumatic; PERRL, EOM intact, conjunctiva normal; no nasal discharge; moist mucous membranes, oral and pharyngeal mucosa normal, tolerating secretions Neck: supple, trachea midline; full ROM Chest: normal to inspection Respiratory: Expiratory wheeze bilaterally Cardiac: Tachycardia, S1S2 intact, no murmurs rubs or gallops GI: abdomen soft, non-tender, non-distended; no palpable mass or hepatosplenomegaly Skin: no lesions, rashes or trauma appreciated Neuro: AAOx3, normal speech, moving all extremities Extremities: Peripheral edema to level bryan bilateral lower extremities Psych: Appropriate mood and affect Course Vital Signs Vital signs: Vital Signs Temperature 36.2 C L 05/15/22 14:43 Pulse 116 H 05/15/22 14:43 Respiratory Rate 24 05/15/22 14:43 Blood Pressure 90/59 L 05/15/22 14:43 Pulse Oximetry 89 L 05/15/22 14:43 Temperature 36.2 C L 05/15/22 14:43 Temperature Source Tympanic 05/15/22 14:43 Pulse 116 H 05/15/22 14:43 Respiratory Rate 24 05/15/22 14:43 Respiratory Effort Short of Breath 05/15/22 14:46 Blood Pressure 90/59 L 05/15/22 14:43 Pulse Oximetry 89 L 05/15/22 14:43 Oxygen Delivery Method Room Air 05/15/22 14:43 Oxygen Flow Rate 0 05/15/22 14:43
[2022-05-15] MEDS: Albuterol/Ipratropium 3 ML UPD VIAL 9 ML UPD (15:10)
[2022-05-15] MEDS: Dexamethasone 10 MG/ML VIAL IVP (15:20)
[2022-05-15 15:28] LABS: Abs Immature Grans 0.02 10^3/uL (0.0-0.06); Absolute Basophil Count 0.03 10^3/uL (0.0-0.2); Absolute Eosinophil Count 0.08 10^3/uL (0.0-0.7); Absolute Lymphocyte Count 1.61 10^3/uL (1.2-3.4); Absolute Monocyte Count 0.84 10^3/uL (0.1-0.8); Absolute Neutrophil Count 5.26 10^3/uL (1.2-6.7); Basophils % 0.4; HCT 46.6 % (36.0-46.0); HGB 14.6 g/dL (11.2-15.7); Immature Grans % 0.3; Lymphocytes % 20.5; MCH 29.2 pg (27.0-33.0); MCHC 31.3 % (32.0-36.0); MCV 93 fL (80-95); MPV 10.6 fL (8.0-11.0); Monocytes % 10.7; Neutrophils % 67.1; Platelet Count 168 10^3/uL (130-400); RDW-SD 48.1 fL; WBC 7.84 10^3/uL (4.4-10.8)
[2022-05-15 15:45] LABS: ALT 16 U/L (14-59); AST 12 U/L (15-37); Albumin 3.4 g/dL (3.4-5.0); Alkaline Phosphatase 92 U/L (46-116); Anion Gap 6.4 mmol/L (3-11); BUN 16 mg/dL (7-18); Bilirubin, Total 0.9 mg/dL (0.2-1.0); CO2 32.6 mmol/L (21.0-32.0); CREATININE 1.2 mg/dL (0.55-1.02); Chloride 98 mmol/L (98-107); Estimated GFR 45.19 (mL/min/1.73m2); Glucose 118 mg/dL (74-106); Potassium 3.4 mmol/L (3.5-5.1); Sodium 137 mmol/L (136-145); Total Protein 6.9 g/dL (6.4-8.2)
[2022-05-15 15:50] LABS: NT-proBNP 3022 pg/mL (<300); Troponin I < 50 ng/L (<or=60)
[2022-05-15] MEDS: Potassium Chloride 20 MEQ TABCR PO (16:00)
[2022-05-15] MEDS: Furosemide 20 MG/2 ML VIAL IVP (16:00)
[2022-05-15 16:35] LABS: COVID-19 PCR Negative (Negative); Influenza A PCR Negative (Negative); Influenza B PCR Negative (Negative)
[2022-05-15 16:39] LABS: RSV PCR Positive (Negative); Source Nasopharynx
--- NOTE | 2022-05-15 16:45 | DI.VRAD_ITS ---
PROCEDURE INFORMATION: Exam: XR Chest Exam date and time: 05/15/2022 4:02 PM Age: 81 years old Clinical indication: Shortness of breath and other: Copd TECHNIQUE: Imaging protocol: Radiologic exam of the chest. Views: 1 view. COMPARISON: CR XR CHEST 2V PA LATERAL 11/14/2020 13:10 FINDINGS: Tubes, catheters and devices: EKG wires overlie the chest. Lungs: Prominent increased interstitial lung markings. Increased opacification of the left base with blunted costophrenic angle. Pleural spaces: See Lungs finding. Heart/Mediastinum: Cardiomegaly. Vasculature: Atherosclerotic disease. Bones/joints: Multilevel degenerative scoliotic changes of the spine. IMPRESSION: 1. Left lower lobe infiltrate. Possible left pleural effusion. 2. Cardiomegaly. Dictated and Authenticated by: Soniya Thompson MD. Ordering:DASH Sapp MD
--- NOTE | 2022-05-15 17:31 | HPE_ITS ---
Date of service: 05/15/22 Time of Service: 17:31 Assessment and Plan Assessment and plan (1) Respiratory failure with hypoxia: Status: Acute Assessment and plan: multifactoral chf, viral resp illness. oxygen, wean as able. (2) RSV (respiratory syncytial virus infection): Status: Acute Assessment and plan: received steroids in the ED. supportive care (3) Acute on chronic diastolic (congestive) heart failure: Status: Acute Assessment and plan: continue diuresis daily weights, I&O Echo done 05/16/20 demonstrates normal systolic LV function w/ LVEF 60-65% with mild LVH. RV size and function are normal. She has mild PHTN. she has biatrial enlargement but only mild MR. (4) Hypokalemia: Status: Acute Assessment and plan: 3.4, possibly d/t several albuterol updrafts, will add magnesium level. replete and follow closely as we are diuresing her which will deplete it as well. (5) Atrial fibrillation: Status: Chronic Assessment and plan: cont. home medication. rate slightly uncontrolled in low 100's, stop albuterol and change to levalbuterol. will add dig level she will need careful monitoring of her potassium and renal function. Qualifiers: Atrial fibrillation type: unspecified Qualified Code(s): I48.91 - Unspecified atrial fibrillation (6) DVT prophylaxis: Status: Acute Assessment and plan: fully anticoagulated (7) Discharge planning issues: Status: Acute Assessment and plan: Discharge home once medically stable. palliative care patient, will place consult for continuity of care discussed with Dr Seals History of Present Illness History of Present Illness Chief Complaint: shortness of breath Narrative: This is an 81-year-old female patient past medical history significant for atrial fibrillation fully anticoagulated on apixaban COPD who presented to the emergency department with worsening of her shortness of breath. She has not been compliant with her Spiriva as she states she is having a hard time to activate the capsules. Her work-up in the emergency department did show that she was positive for RSV she was also treated with IV Lasix as she did appear f luid overloaded. She will be admitted to hospitalist services for further diuresis and management. She was also given IV steroids Review of Systems Constitutional Constitutional: Reports system reviewed and no additional complaints, except as documented Cardiovascular Cardiovascular: Denies chest pain and Reports dyspnea Respiratory Respiratory: Reports cough, Reports dyspnea and Reports wheezing Allergic/Immunologic Allergic/Immunologic: Reports wheezing PFSH All Active Problems (Updated 05/15/22 @ 17:41 by Ella Koenig NP) Hypokalemia (Acute) RSV (respiratory syncytial virus infection) (Acute) Respiratory failure with hypoxia (Acute) Conjunctivitis (Acute) Right hip pain (Acute) Cognitive change (Acute) RUQ abdominal pain (Acute) Weight loss, abnormal (Acute ~06/11/21) 30# in last yr Aminah onychomycosis (Acute) Bradycardia (Acute) Encounter for monitoring diuretic therapy (Acute) Congestive heart failure (Chronic) DNR (do not resuscitate) (Acute) Physician orders for life-sustaining treatment (POLST) form indicates patient wish for [id number] status (Acute) Discharge planning issues (Acute) DVT prophylaxis (Acute) Pulmonary hypertension (Acute) Acute on chronic diastolic (congestive) heart failure (Acute) Hypoxia (Acute) ST segment changes on electrocardiogram (Acute) Atrial fibrillation (Chronic) Tachycardia (Acute) Weight loss (Chronic 04/02/14) Urinary frequency (Chronic 08/21/15) Tubular adenoma of colon (Chronic 03/04/14) Shortness of breath (Chronic 10/14/16) 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 Positive neutrophil AB mostlikely indicating ulcerative colitis Increased body mass index (Chronic) Hyperlipidemia (Chronic) Diarrhea (Chronic 11/19/14) Complete edentulism, unspecified (Chronic) Atherosclerosis (Chronic) Anxiety (Chronic 07/25/17) Coronary disease (Chronic) COPD (chronic obstructive pulmonary disease) (Chronic) Hypertension (Chronic) SCHAEFFER (nonalcoholic steatohepatitis) (Chronic) H/O inflammatory bowel disease (Chronic) SVT (supraventricular tachycardia) (Chronic 09/15/14) Medical History (Updated 05/15/22 @ 17:41 by Ella Koenig, CHARLEEN) Abdominal aortic aneurysm (05/31/12) 4.4 cm 07/20 s/p repair 2013 Arm skin lesion, left (12/09/15) Atherosclerosis Bruit Bruit of left carotid artery mild-mod. 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 02/18-09/19, normal metanephrines, normal dexamethasone suppression. 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 hypokalemia b. 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 GRAJEDA Hemicolectomy [facility]; 09/15/14; RIGHT History of bilateral ligation of fallopian tubes History of partial colectomy 09/15/14 right hemicolectomy w/ileocolic anastomosis History of partial surgical removal of colon (09/15/14) Ligation of fallopian tube S/P AAA repair S/P tubal ligation Status post appendectomy Family History Mother Essential hypertension Alzheimer's disease Father Heart disease Breast cancer Prostate cancer Sister Myocardial infarction Sister Myocardial infarction Brother Cancer Sister No problems noted. Sister No problems noted. Brother Substance abuse Brother Substance abuse Brother Substance abuse Cancer Son No problems noted. Daughter No problems noted. Social History Smoking/Tobacco Use Status: Former Tobacco Use Smoking risk assessment performed?: Yes Alcohol Intake: never Drug use: Never Substance use type: does not use Household members: other Details: 4 Pets and animals: Yes Pets and animals: cat(s) and dog(s) Current gender identity: decline to answer What is your relationship status?: refused to answer How often do you talk on the phone with friends or family?: decline to answer How often do you get together with friends or relatives?: decline to answer How often do you attend synagogue or roman catholic services?: decline to answer Do you belong to any clubs or organized social groups?: decline to answer Panel score (0-1 are the most socially isolated patients): 0 What type of physical activity do you participate in: none Lelo/Hindu: No preference Special lelo needs: No Do you feel safe at home: Yes Do you feel safe in your relationship?: Yes Meds Allergies and Home Medications Allergies Allergy/AdvReac Type Severity Reaction Status Date / Time pneumococcal 7-valent Allergy Mild Local Verified 05/15/22 15:49 conjugate to reaction [From Prevnar] amoxicillin trihydrate AdvReac Intermediate VOMITING Verified 05/15/22 15:49 [From Augmentin] potassium clavulanate AdvReac Intermediate VOMITING Verified 05/15/22 15:49 [From Augmentin] Home Medications Medication Instructions Recorded Confirmed Type acetaminophen 325 mg tablet 650 mg Q8H PRN PRN 08/10/14 05/15/22 History (Tylenol) Lactobacillus acidophilus 1 1 ea PO BID 03/11/15 05/15/22 History billion cell tablet Immodium 1 - 2 cap PO PRN 06/12/15 05/15/22 History aspirin 81 mg tablet,delayed 81 mg PO DAILY 11/16/16 05/15/22 History release (Aspir-) magnesium oxide 400 mg (241.3 mg 400 mg PO DAILY #90 tabs 06/11/21 05/15/22 Rx magnesium) tablet Spiriva with HandiHaler 18 mcg and 1 cap inhalation DAILY #90 10/13/21 05/15/22 Rx inhalation capsules (tiotropium inhalations bromide) fluticasone propionate 220 1 puff inhalation BID #12 grams 12/10/21 05/15/22 Rx mcg/actuation HFA aerosol inhaler furosemide 20 mg tablet 20 mg PO DAILY #90 tabs 12/10/21 05/15/22 Rx potassium chloride 20 mEq 20 meq PO BID #180 tabs 12/10/21 05/15/22 Rx tablet,extended release(part/cryst) (Klor-Con M) risperidone 2 mg tablet (Risperdal) 2 mg PO HS #90 tabs 12/10/21 05/15/22 Rx sertraline 50 mg tablet 50 mg PO DAILY #90 tabs 12/10/21 05/15/22 Rx trazodone 100 mg tablet 100 mg PO HS #90 tabs 12/10/21 05/15/22 Rx apixaban 5 mg tablet (Eliquis) 5 mg PO BID #180 tabs 01/11/22 05/15/22 Rx lorazepam 0.5 mg tablet 0.5 mg PO TID PRN anxiety #270 tabs 01/25/22 05/15/22 Rx albuterol sulfate 90 mcg/actuation 2 puff inhalation Q4H PRN 02/02/22 05/15/22 Rx aerosol inhaler shortness of breath #18 grams digoxin 125 mcg (0.125 mg) tablet 125 mcg PO DAILY #90 tabs 04/19/22 05/15/22 Rx Exam Const General: cooperative and acute distress moderate Nutritional Appearance: average body habitus Orientation: alert, awake and oriented x3 HENMT Head: normal to inspection and normocephalic Chest Chest: normal inspection of the chest Resp Effort & Inspection: labored (after activity) and no respiratory distress Auscultation: wheezes expiratory wheezes Cardio Rate: regular rate Rhythm: regular rhythm GI Inspection: normal to inspection Palpation: soft and nontender Skin General skin exam: no rashes or lesions noted Neuro General: patient alert, patient awake and patient oriented x3 Extrem General: normal to inspection and full ROM Results Labs 05/15/22 15:20 05/15/22 15:20 Labs: Laboratory Results - last 24 hr 05/15/22 05/15/22 05/15/22 15:20 15:20 15:20 WBC 7.84 RBC 5.00 Hgb 14.6 Hct 46.6 H MCV 93 MCH 29.2 MCHC 31.3 L RDW 14.0 Plt Count 168 MPV 10.6 Immature Gran % 0.3 Neutrophils % 67.1 Lymphocytes % 20.5 Monocytes % 10.7 Eosinophils % 1.0 Basophils % 0.4 Nucleated RBC % 0.0 Absolute Neutrophils 5.26 Absolute Lymphocytes 1.61 Absolute Monocytes 0.84 H Absolute Eosinophils 0.08 Absolute Basophils 0.03 Sodium 137 Potassium 3.4 L Chloride 98 Carbon Dioxide 32.6 H Anion Gap 6.4 BUN 16 Creatinine 1.2 H Est GFR (CKD-EPI 2020) 45.19 Glucose 118 H Calcium 9.0 Total Bilirubin 0.9 AST 12 L ALT 16 Alkaline Phosphatase 92 Troponin I < 50 NT-Pro-B Natriuret Pep 3022 H Total Protein 6.9 Albumin 3.4 COVID-19 Source SARS-CoV-2 (PCR) Influenza Type A (PCR) Influenza Type B (PCR) RSV (PCR) 05/15/22 15:55 WBC RBC Hgb Hct MCV MCH MCHC RDW Plt Count MPV Immature Gran % Neutrophils % Lymphocytes % Monocytes % Eosinophils % Basophils % Nucleated RBC % Absolute Neutrophils Absolute Lymphocytes Absolute Monocytes Absolute Eosinophils Absolute Basophils Sodium Potassium Chloride Carbon Dioxide Anion Gap BUN Creatinine Est GFR (CKD-EPI 2020) Glucose Calcium Total Bilirubin AST ALT Alkaline Phosphatase Troponin I NT-Pro-B Natriuret Pep Total Protein Albumin COVID-19 Source Nasopharynx SARS-CoV-2 (PCR) Negative Influenza Type A (PCR) Negative Influenza Type B (PCR) Negative RSV (PCR) Positive A* Last Vital Signs Temp 36.2 C L 05/15/22 14:43 Pulse 130 H 05/15/22 15:10 Resp 30 H 05/15/22 15:10 BP 90/59 L 05/15/22 14:43 Pulse Ox 88 L 05/15/22 15:10 Time Spent Time spent with Patient: 40-54 minutes Time was spent: preparing to see the patient(eg.review tests), obtaining and/or reviewing separately otained hiistory, ordering medications,tests, procedures, referring, communicating with other health palliative care nurse practitioner (ED provider), indepentently interpreting results and counseling the patient
[2022-05-15 17:58] LABS: Digoxin 0.96 ng/mL (0.90-2.00)
[2022-05-15 18:11] LABS: Troponin I < 50 ng/L (<or=60)
[2022-05-15] MEDS: Apixaban 5 MG TAB PO (20:45)
[2022-05-15] MEDS: Ipratropium 0.5 MG/2.5 ML UPD VIAL UPD (21:34)
[2022-05-15] MEDS: traZODone 100 MG TAB PO (21:50)
[2022-05-15] MEDS: risperiDONE 1 MG TAB 2 MG PO (21:55)
[2022-05-16] VITALS (13 sets, daily range): BP systolic 100–116; BP diastolic 52–68; PULSE 90–129; RESP 1–22; TEMP 36.4–36.8; O2SAT 90–98
[2022-05-16 05:49] LABS: Abs Immature Grans 0.03 10^3/uL (0.0-0.06); Absolute Basophil Count 0.01 10^3/uL (0.0-0.2); Absolute Eosinophil Count 0.01 10^3/uL (0.0-0.7); Absolute Lymphocyte Count 0.72 10^3/uL (1.2-3.4); Absolute Monocyte Count 0.47 10^3/uL (0.1-0.8); Absolute Neutrophil Count 5.13 10^3/uL (1.2-6.7); Basophils % 0.2; Eosinophils % 0.2; HCT 41.7 % (36.0-46.0); HGB 13.8 g/dL (11.2-15.7); Immature Grans % 0.5; Lymphocytes % 11.3; MCH 30.1 pg (27.0-33.0); MCHC 33.1 % (32.0-36.0); MCV 91 fL (80-95); MPV 10.2 fL (8.0-11.0); Monocytes % 7.4; Neutrophils % 80.4; Platelet Count 172 10^3/uL (130-400); RBC 4.58 10^6/uL (3.93-5.22); RDW 13.9 % (11.7-14.6); RDW-SD 46.5 fL; WBC 6.37 10^3/uL (4.4-10.8)
[2022-05-16 06:08] LABS: Anion Gap 4.4 mmol/L (3-11); BUN 22 mg/dL (7-18); CO2 32.6 mmol/L (21.0-32.0); Calcium 8.8 mg/dL (8.5-10.1); Chloride 99 mmol/L (98-107); Estimated GFR 56.25 (mL/min/1.73m2); Glucose 119 mg/dL (74-106); Sodium 136 mmol/L (136-145)
[2022-05-16] MEDS: Ipratropium 0.5 MG/2.5 ML UPD VIAL UPD ×4 (07:46→19:48)
[2022-05-16] MEDS: Levalbuterol 1.25 MG/3 ML UPD VIAL UPD ×3 (07:46→16:15)
--- NOTE | 2022-05-16 08:48 | PDOC.CMIN ---
- If Service Date Differs Date of service: 05/16/22 Time of Service: 08:48 Care Management Initial Assess REASON FOR HOSPITALIZATION:: Hypoxic Repiratory Failure, CHF, Viral illness PAST MEDICAL HISTORY/PAST SURGICAL HISTORY:: All Active Problems (Updated 05/15/22 @ 17:41 by Ella Koenig NP). Hypokalemia (Acute). RSV (respiratory syncytial virus infection) (Acute). Respiratory failure with hypoxia (Acute). Conjunctivitis (Acute). Right hip pain (Acute). Cognitive change (Acute). RUQ abdominal pain (Acute). Weight loss, abnormal (Acute ~06/11/21). 30# in last yr. Aminah onychomycosis (Acute). Bradycardia (Acute). Encounter for monitoring diuretic therapy (Acute). Congestive heart failure (Chronic). DNR (do not resuscitate) (Acute). Physician orders for life-sustaining treatment (POLST) form indicates patient wish for [id number] status (Acute). Discharge planning issues (Acute). DVT prophylaxis (Acute). Pulmonary hypertension (Acute). Acute on chronic diastolic (congestive) heart failure (Acute). Hypoxia (Acute). ST segment changes on electrocardiogram (Acute). Atrial fibrillation (Chronic). Tachycardia (Acute). Weight loss (Chronic 04/02/14). Urinary frequency (Chronic 08/21/15). Tubular adenoma of colon (Chronic 03/04/14). Shortness of breath (Chronic 10/14/16). 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 Positive neutrophil AB mostlikely indicating ulcerative colitis. Increased body mass index (Chronic). Hyperlipidemia (Chronic). Diarrhea (Chronic 11/19/14). Complete edentulism, unspecified (Chronic). Atherosclerosis (Chronic). Anxiety (Chronic 07/25/17). Coronary disease (Chronic). COPD (chronic obstructive pulmonary disease) (Chronic). Hypertension (Chronic). SCHAEFFER (nonalcoholic steatohepatitis) (Chronic). H/O inflammatory bowel disease (Chronic). SVT (supraventricular tachycardia) (Chronic 09/15/14). Medical History (Updated 05/15/22 @ 17:41 by Ella Koenig NP). Abdominal aortic aneurysm (05/31/12). 4.4 cm 07/20. s/p repair 2012. Arm skin lesion, left (12/09/15). Atherosclerosis. Bruit. Bruit of left carotid artery. mild-mod. plaque per [place]. COPD (chronic obstructive pulmonary disease) with emphysema. CVD (cardiovascular disease). Dependence on supplemental oxygen. Depression. a. with psychotic features. Disorder of adrenal gland. Adrenal mass on CT-right; serial CT scan no change. 02/18-09/19, normal metanephrines, normal dexamethasone suppression. Disorder of adrenal gland. Disorder of appendix. 12/07/12 s/p appendectomy. Disorder of appendix (12/07/12). Electrolyte imbalance (09/15/14). a. hypokalemia. b. hypomagnesemia. Elevated LDH. Elevated serum lactate dehydrogenase (LDH). Essential (primary) hypertension. 06/01/13. Hiatus hernia syndrome. 12/05/14 [facility]; EGD. History of tobacco use. 100pack/years. History of tobacco use. Ischemic bowel disease. 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). Palliative care patient. Palpitations. 08/26/14; FREQ PVC BY HOLTER. Palpitations. Right pontine CVA. [facility]-01/30/16; 8X5 mm. Seborrheic keratosis (01/01/16). punch/shave biopsy skin of left arm. Seborrheic keratosis (01/01/16). Vascular insufficiency of intestine (06/12/15). Surgical History . Appendectomy. Biopsy, Soft Tissue (01/01/16). Punch/shave biospy of skin of left arm, seborrheic keratosis. Colectomy (09/18/14). DR. GRAJEDA. Hemicolectomy. [facility]; 09/15/14; RIGHT. History of bilateral ligation of fallopian tubes. History of partial colectomy. 09/15/14 right hemicolectomy w/ileocolic anastomosis. History of partial surgical removal of colon (09/15/14). Ligation of fallopian tube. S/P AAA repair. S/P tubal ligation. Status post appendectomy PREVIOUS FUNCTIONAL STATUS/SOCIAL/FAMILY SUPPORTS:: Deb is and lives in [place]. She has two supportive children, a daughter, Mimi, who resides with her, and a son, Fabricio, who lives locally, in addition to several grandchildren who also live locally. Deb is independent with her ADL's at baseline. Mimi provides her transportation and does all the cooking. CURRENT FUNCTIONAL STATUS:: Deb is sitting in her recliner when CM met with her. Her daughter Mimi is in the room and Deb is awake and able to engage in conversation. Deb does not have any [facility] services or community support. Per pt, her mobility and ability to care for herself is good, and her daughter agrees. CM provided assistance updating the HIPAA at patients request. ADVANCE DIRECTIVES:: Advance Directive on file; daughter Mimi Merino is Health Care Agent. DNR/COLST also on file. Has patient been provided with info about the portal/API?: Yes Did the patient sign up for the portal?: No CODE STATUS:: DNR/DNI INSURANCE COVERAGE / FINANCIAL ISSUES:: Cross Current (Medicare replacement plan). [facility] like. Medicare CURRENT HOME/COMMUNITY SERVICES/EQUIPMENT:: Uses a walker, cane or wheelchair as needed. Followed by Palliative Care PRIMARY CARE PHYSICIAN:: Carolin Salinas MD. 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 Evaluation for further needs. Pt declines [facility] referral. PATIENT/FAMILY EDUCATION NEEDS:: Discharge instructions, limitations, follow up plan of care, including Ask Me Three and self-management. TRANSPORTATION:: Via private vehicle with family. PLAN:: Anticipate, Deb will be discharged home when medically cleared by provider with New [facility] services (if indicated). She will follow up with community providers and discharge plan of care as prescribed. Family will drive her home when ready. Pt declines referral to [facility]. CM will continue to follow.
[2022-05-16] MEDS: Furosemide 40 MG/4 ML VIAL IVP (10:05)
[2022-05-16] MEDS: Normal Saline Flush 10 ML SYR (10:06)
[2022-05-16] MEDS: Digoxin 0.125 MG TAB PO (10:06)
[2022-05-16] MEDS: Magnesium Oxide 400 MG TAB PO (10:07)
[2022-05-16] MEDS: Apixaban 5 MG TAB PO ×2 (10:07→19:48)
[2022-05-16] MEDS: Sertraline 50 MG TAB PO (10:07)
[2022-05-16] MEDS: Aspirin E.C. 81 MG TABEC PO (10:07)
[2022-05-16] MEDS: Lactobacillus Acidophilus CAP 1 CAP PO ×2 (10:07→19:48)
[2022-05-16] MEDS: predniSONE 20 MG TAB 40 MG PO (10:08)
[2022-05-16] MEDS: Potassium Chloride 20 MEQ TABCR PO ×3 (10:08→16:07)
--- NOTE | 2022-05-16 10:52 | W.PM.PROGNOT ---
Date of Service Date of service: 05/16/22 Time of Service: 10:52 Assessment and Plan Assessment and plan (1) Respiratory failure with hypoxia: Status: Acute Assessment and plan: multifactoral chf, viral resp illness. oxygen, wean as able. (2) RSV (respiratory syncytial virus infection): Status: Acute Assessment and plan: received steroids in the ED. supportive care (3) Acute on chronic diastolic (congestive) heart failure: Status: Acute Assessment and plan: continue diuresis daily weights, I&O Echo done 05/16/20 demonstrates normal systolic LV function w/ LVEF 60-65% with mild LVH. RV size and function are normal. She has mild PHTN. she has biatrial enlargement but only mild MR. (4) Hypokalemia: Status: Acute Assessment and plan: repleted and follow closely as we are diuresing her which will deplete it as well. (5) Atrial fibrillation: Status: Chronic Assessment and plan: cont. home medication. better controlled today using levalbuterol instead of albuterol dig level 0.96 she will need careful monitoring of her potassium and renal function. Qualifiers: Atrial fibrillation type: unspecified Qualified Code(s): I48.91 - Unspecified atrial fibrillation (6) DVT prophylaxis: Status: Acute Assessment and plan: fully anticoagulated (7) Discharge planning issues: Status: Acute Assessment and plan: Discharge home once medically stable. palliative care patient, will place consult for continuity of care discussed with Dr Seals Subjective Subjective Patient reports: tolerating liquids well, tolerating a regular diet, voiding w/o difficulty, bowel movement (constipation), shortness of breath and afebrile Interval history since last seen: continues to have shortness of breath with activity. no fever overnight. c/o constipation Exam Const General: cooperative and acute distress moderate Nutritional Appearance: average body habitus Orientation: alert, awake and oriented x3 HENMT Head: normal to inspection and normocephalic Chest Chest: normal inspection of the chest Resp Effort & Inspection: labored (after activity) and no respiratory distress Auscultation: wheezes expiratory wheezes Cardio Rate: regular rate Rhythm: regular rhythm GI Inspection: normal to inspection Palpation: soft and nontender Skin General skin exam: no rashes or lesions noted Neuro General: patient alert, patient awake and patient oriented x3 Extrem General: normal to inspection and full ROM Objective Last Vital Signs Temp 36.4 C L 05/16/22 07:23 Pulse 90 05/16/22 10:06 Resp 18 05/16/22 07:46 BP 100/61 05/16/22 07:23 Pulse Ox 92 05/16/22 09:07 Laboratory Results - last 24 hr 05/15/22 05/15/22 05/15/22 15:20 15:20 15:20 WBC 7.84 RBC 5.00 Hgb 14.6 Hct 46.6 H MCV 93 MCH 29.2 MCHC 31.3 L RDW 14.0 Plt Count 168 MPV 10.6 Immature Gran % 0.3 Neutrophils % 67.1 Lymphocytes % 20.5 Monocytes % 10.7 Eosinophils % 1.0 Basophils % 0.4 Nucleated RBC % 0.0 Absolute Neutrophils 5.26 Absolute Lymphocytes 1.61 Absolute Monocytes 0.84 H Absolute Eosinophils 0.08 Absolute Basophils 0.03 Sodium 137 Potassium 3.4 L Chloride 98 Carbon Dioxide 32.6 H Anion Gap 6.4 BUN 16 Creatinine 1.2 H Est GFR (CKD-EPI 2020) 45.19 Glucose 118 H Calcium 9.0 Magnesium Total Bilirubin 0.9 AST 12 L ALT 16 Alkaline Phosphatase 92 Troponin I < 50 NT-Pro-B Natriuret Pep 3022 H Total Protein 6.9 Albumin 3.4 Digoxin COVID-19 Source SARS-CoV-2 (PCR) Influenza Type A (PCR) Influenza Type B (PCR) RSV (PCR) 05/15/22 05/15/22 05/15/22 15:20 15:20 15:55 WBC RBC Hgb Hct MCV MCH MCHC RDW Plt Count MPV Immature Gran % Neutrophils % Lymphocytes % Monocytes % Eosinophils % Basophils % Nucleated RBC % Absolute Neutrophils Absolute Lymphocytes Absolute Monocytes Absolute Eosinophils Absolute Basophils Sodium Potassium Chloride Carbon Dioxide Anion Gap BUN Creatinine Est GFR (CKD-EPI 2020) Glucose Calcium Magnesium 2.0 Total Bilirubin AST ALT Alkaline Phosphatase Troponin I NT-Pro-B Natriuret Pep Total Protein Albumin Digoxin 0.96 COVID-19 Source Nasopharynx SARS-CoV-2 (PCR) Negative Influenza Type A (PCR) Negative Influenza Type B (PCR) Negative RSV (PCR) Positive A* 05/15/22 05/16/22 05/16/22 17:45 05:44 05:44 WBC 6.37 RBC 4.58 Hgb 13.8 Hct 41.7 MCV 91 MCH 30.1 MCHC 33.1 RDW 13.9 Plt Count 172 MPV 10.2 Immature Gran % 0.5 Neutrophils % 80.4 Lymphocytes % 11.3 Monocytes % 7.4 Eosinophils % 0.2 Basophils % 0.2 Nucleated RBC % 0.0 Absolute Neutrophils 5.13 Absolute Lymphocytes 0.72 L Absolute Monocytes 0.47 Absolute Eosinophils 0.01 Absolute Basophils 0.01 Sodium 136 Potassium 4.0 Chloride 99 Carbon Dioxide 32.6 H Anion Gap 4.4 BUN 22 H Creatinine 1.0 Est GFR (CKD-EPI 2020) 56.25 Glucose 119 H Calcium 8.8 Magnesium Total Bilirubin AST ALT Alkaline Phosphatase Troponin I < 50 NT-Pro-B Natriuret Pep Total Protein Albumin Digoxin COVID-19 Source SARS-CoV-2 (PCR) Influenza Type A (PCR) Influenza Type B (PCR) RSV (PCR) Time Spent with Patient Time Spent with Patient: 25-34 minutes Time was spent: preparing to see the patient(eg.review tests), obtaining and/or reviewing separately otained hiistory, ordering medications,tests, procedures, indepentently interpreting results and counseling the patient
[2022-05-16] MEDS: Mometasone 220 MCG 14 DOSE INHALER 1 PUFF IH (19:50)
[2022-05-16] MEDS: risperiDONE 1 MG TAB 2 MG PO (21:00)
[2022-05-16] MEDS: traZODone 100 MG TAB PO (21:01)
[2022-05-16] MEDS: LORazepam 0.5 MG TAB PO (23:38)
[2022-05-17] VITALS (7 sets, daily range): BP systolic 114–150; BP diastolic 66–85; PULSE 98–144; RESP 16–22; TEMP 36.4–36.9; O2SAT 88–93
--- NOTE | 2022-05-17 | DI.RAD_ITS ---
Exam(s) XR ABDOMEN FLAT UPRIGHT EXAM: 2D digital imaging was performed. CLINICAL HISTORY: abdominal bloating, nausea and vomiting. COMPARISON: CR LUMBAR SPINE COMPLETE from 05/10/[address] CHEST PE CTA from 05/15/2020 CR,XR XR PORTABLE CHEST AP from 05/15/2022 TECHNIQUE: Supine and Lateral views of the abdomen were performed. FINDINGS: BOWEL GAS PATTERN: Nondistended.No free air. Gas seen within colon. Normal quantity of stool. CALCIFICATIONS: No urinary tract calcifications. OSSEOUS STRUCTURES: Normal for age. Visualized portions of chest: Cardiomegaly. Visualized portions of the lungs are clear. Aortic sten ts. IMPRESSION: 1. Nonobstructive bowel gas pattern.No free air. DATA REPOSITORY: RADIATION DOSE DELIVERED:
[2022-05-17] MEDS: Ondansetron 4 MG/2 ML VIAL IVP ×3 (06:13→16:49)
[2022-05-17 06:26] LABS: Abs Immature Grans 0.06 10^3/uL (0.0-0.06); Absolute Eosinophil Count 0.04 10^3/uL (0.0-0.7); Absolute Monocyte Count 0.96 10^3/uL (0.1-0.8); Basophils % 0.2; Eosinophils % 0.3; HCT 44.1 % (36.0-46.0); HGB 14.3 g/dL (11.2-15.7); Immature Grans % 0.5; Lymphocytes % 14.3; MCH 29.5 pg (27.0-33.0); MCHC 32.4 % (32.0-36.0); MCV 91 fL (80-95); MPV 10.3 fL (8.0-11.0); Monocytes % 7.5; Neutrophils % 77.2; Platelet Count 190 10^3/uL (130-400); RBC 4.84 10^6/uL (3.93-5.22); RDW 13.9 % (11.7-14.6); RDW-SD 46.1 fL; WBC 12.77 10^3/uL (4.4-10.8)
[2022-05-17 06:30] LABS: Absolute Basophil Count 0.03 10^3/uL (0.0-0.2); Absolute Lymphocyte Count 1.83 10^3/uL (1.2-3.4); Absolute Neutrophil Count 9.86 10^3/uL (1.2-6.7)
[2022-05-17 07:17] LABS: BUN 24 mg/dL (7-18); CO2 32.1 mmol/L (21.0-32.0); CREATININE 0.9 mg/dL (0.55-1.02); Calcium 9.2 mg/dL (8.5-10.1); Estimated GFR 63.83 (mL/min/1.73m2); Glucose 102 mg/dL (74-106)
[2022-05-17 07:22] LABS: Anion Gap 6.9 mmol/L (3-11); Chloride 90 mmol/L (98-107); Potassium 3.5 mmol/L (3.5-5.1); Sodium 129 mmol/L (136-145)
--- NOTE | 2022-05-17 08:21 | PCNE_ITS ---
Date of service: 05/17/22 Time of Service: 08:22 History of Present Illness History of Present Illness Chief Complaint: Respiratory problems Narrative: Deb is an 81-year-old woman who is well-known to me. I have been her PCP for about 20 years. She does have fairly significant COPD and runs into respiratory problems couple times a year. She was not doing well, presented to the ER, and was admitted with RSV. Over the last 48 hours she has improved greatly and is expecting to go home soon. Consults Consult date: 05/17/22 Requesting physician: Rosendo Seals Assessment and Plan Assessment and plan (1) RSV (respiratory syncytial virus infection): Status: Acute (2) Respiratory failure with hypoxia: Status: Acute Assessment and plan: Deb is an 81-year-old woman who is well-known to me. I have been her PCP for about 20 years. She has ongoing problems with mental illness. She is well maintained on the risperidone although I do think that she is having some side effects from it. I am not going to switch this as this has been in place for a long time through [facility]. She came in with hypoxia which is now improving. She is off oxygen at this time. She did have an echocardiogram which was reassuring. She has not required antibiotics Her sodium was low today. I recommend her diet and fluid intake to be libera lized so that she is back on what she was at home. She was doing well in the past. I did call her daughter Mimi and updated her. Overall she is doing quite well and is near her baseline. I will be following up both as her PCP and if necessary doing home visits on her. She reiterated that she did not want CPR. She remains a DNR/DNI. Thank you very much for this consult Review of Systems Narrative: She states that her breathing is better. Her heart does not feel like it is going as fast as it had. She is anxious to get home but also wants to get well. 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 plaque per [facility] [facility] onychomycosis Cognitive change Complete edentulism, unspecified Congestive heart failure Conjunctivitis COPD (chronic obstructive pulmonary disease) with emphysema CVD (cardiovascular disease) Dependence on supplemental oxygen Depression a. with psychotic features Diarrhea (11/19/14) Discharge planning issues 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 02/18-09/19, normal metanephrines, normal dexamethasone suppression. 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 hypokalemia b. hypomagnesemia Elevated LDH Elevated serum lactate dehydrogenase (LDH) Encounter for monitoring diuretic therapy Essential (primary) hypertension 06/01/13 Hiatus hernia syndrome 12/05/14 [facility] [place]; EGD History of tobacco use 100pack/years History of tobacco use Hyperlipidemia Increased body mass index Ischemic bowel disease 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) Palliative care patient Palpitations 08/26/14; FREQ PVC BY [facility]TER Palpitations Right hip pain Right pontine CVA [facility]-01/30/16; 8X5 mm RUQ abdominal pain Seborrheic keratosis (01/01/16) punch/shave biopsy skin of left arm Seborrheic keratosis (01/01/16) Shortness of breath (10/14/16) SVT (supraventricular tachycardia) (09/15/14) Tachycardia Urinary frequency (08/21/15) Vascular insufficiency of intestine (06/12/15) Weight loss (04/02/14) Weight loss, abnormal (~06/11/21) 30# in last yr Surgical History Appendectomy Biopsy, Soft Tissue (01/01/16) Punch/shave biospy of skin of left arm, seborrheic keratosis Colectomy (09/18/14) DR. GRAJEDA Hemicolectomy [facility]; 09/15/14; RIGHT History of bilateral ligation of fallopian tubes History of partial colectomy 09/15/14 right hemicolectomy w/ileocolic anastomosis History of partial surgical removal of colon (09/15/14) Ligation of fallopian tube S/P AAA repair S/P tubal ligation Status post appendectomy Family History Mother Essential hypertension Alzheimer's disease Father Heart disease Breast cancer Prostate cancer Sister Myocardial infarction Sister Myocardial infarction Brother Cancer Sister No problems noted. Sister No problems noted. Brother Substance abuse Brother Substance abuse Brother Substance abuse Cancer Son No problems noted. Daughter No problems noted. Social History Smoking/Tobacco Use Status: Former Tobacco Use Smoking risk assessment performed?: Yes Alcohol Intake: never Drug use: Never Substance use type: does not use Household members: other Details: 4 Pets and animals: Yes Pets and animals: cat(s) and dog(s) Current gender identity: decline to answer What is your relationship status?: refused to answer How often do you talk on the phone with friends or family?: decline to answer How often do you get together with friends or relatives?: decline to answer How often do you attend shinto or anabaptist services?: decline to answer Do you belong to any clubs or organized social groups?: decline to answer Panel score (0-1 are the most socially isolated patients): 0 What type of physical activity do you participate in: none Lelo/Methodist: No preference Special lelo needs: No Do you feel safe at home: Yes Do you feel safe in your relationship?: Yes Exam Const General: cooperative and comfortable Nutritional Appearance: overweight Orientation: oriented x3 HENMT Ears: hearing grossly normal bilaterally General nose exam: external nose normal Face and sinus: normal facial exam Mouth: other (tongue rolling and lip smacking) Teeth and gingiva: edentulous Eyes Visual Rausch: normal visual rausch by confrontation Alignment and Position: alignment normal Neck Neck: normal visual inspection Resp Effort & Inspection: decreased respiratory effort and prolonged expiratory phase Auscultation: rales Cardio Rate: regular rate GI Palpation: soft Auscultation: normal bowel sounds Skin General skin exam: dry skin Neuro General: patient oriented x3 and unable to assess gait Cognition: abnormal cognition (but baseline) Speech: abnormal speech (short sentences) Psych Mental Status: other (baseline) Speech and Movement: restless Mood: other (baseline) Insight: poor Judgment: poor Results Last Vital Signs Temp 98.1 F 05/16/22 23:05 Pulse 103 H 05/16/22 23:05 Resp 18 05/16/22 23:05 BP 116/68 05/16/22 23:05 Pulse Ox 91 L 05/16/22 23:05 Labs 05/17/22 06:10 05/17/22 06:10 Labs: Laboratory Results - last 24 hr 05/17/22 05/17/22 06:10 06:10 WBC 12.77 H RBC 4.84 Hgb 14.3 Hct 44.1 MCV 91 MCH 29.5 MCHC 32.4 RDW 13.9 Plt Count 190 MPV 10.3 Immature Gran % 0.5 Neutrophils % 77.2 Lymphocytes % 14.3 Monocytes % 7.5 Eosinophils % 0.3 Basophils % 0.2 Nucleated RBC % 0.0 Absolute Neutrophils 9.86 H Absolute Lymphocytes 1.83 Absolute Monocytes 0.96 H Absolute Eosinophils 0.04 Absolute Basophils 0.03 Sodium 129 L Potassium 3.5 Chloride 90 L Carbon Dioxide 32.1 H Anion Gap 6.9 BUN 24 H Creatinine 0.9 Est GFR (CKD-EPI 2020) 63.83 Glucose 102 Calcium 9.2 Conclusion This is a technically limited study. Left Ventricle : The left ventricle is normal size. The left ventricular systolic function is normal. The left ventricular ejection fraction is within the normal range. Mild concentric left ventricular hypertrophy. There is normal LV segmental wall motion. The diastolic function is abnormal. LVEF is 60-65%. Right Ventricle : Right ventricle is grossly normal in size. Right ventricular systolic function is grossly normal. The RVSP is 35.2mmHg. Atria : Left atrium is severely dilated. Right atrium is mildly dilated. Mitral Valve : Severe mitral annular calcification. Mild mitral regurgitation. No evidence of mitral valve stenosis. Great Vessels : The aortic root is normal in size. The ascending aorta is normal in size. Aortic arch is not well visualized. IVC is normal in size and collapses >50% with inspiration.
[2022-05-17] MEDS: Apixaban 5 MG TAB PO ×2 (08:25→21:13)
[2022-05-17] MEDS: Aspirin E.C. 81 MG TABEC PO (08:25)
[2022-05-17] MEDS: Docusate Sodium 100 MG CAP PO ×2 (08:26→21:13)
[2022-05-17] MEDS: Digoxin 0.125 MG TAB PO (08:26)
[2022-05-17] MEDS: Furosemide 40 MG/4 ML VIAL IVP (08:26)
[2022-05-17] MEDS: Lactobacillus Acidophilus CAP 1 CAP PO ×2 (08:27→21:13)
[2022-05-17] MEDS: predniSONE 20 MG TAB 40 MG PO (08:29)
[2022-05-17] MEDS: Sertraline 50 MG TAB PO (08:29)
[2022-05-17] MEDS: Potassium Chloride 20 MEQ TABCR PO ×3 (08:29→16:48)
[2022-05-17] MEDS: Normal Saline Flush 10 ML SYR IVP ×3 (08:30→16:50)
--- NOTE | 2022-05-17 08:55 | CMPROGNOTE_ITS ---
- If Service Date Differs Date of service: 05/17/22 Time of Service: 08:55 Care Management Progress Note S/O:eDb was sitting up in a chair when CM met with her. She was polite but not overly talkative. She informed CM that she has a belly ache. When asked, she stated that she is also having diarrhea. Deb also indicated that her breathing has not really improved since admission. Deb' WBC increased from 6.37 yesterday to 12.77 today. Her blood pressure has been a bit low, generally betw een 80 and 110, systolic and she remains tachycardic with HR in the 140s. Deb is scheduled to have a Palliative Care consult today with Dr. Salinas, whom she has seen in the past. A: Deb is an 81 year old woman admitted on 05/15/22 with respiratory failure P:Anticipate, Deb will be discharged home when medically cleared by provider with [facility] services (if indicated). She will follow up with community providers and discharge plan of care as prescribed. Family will drive her home when ready. Pt declines referral to [facility]. CM will continue to follow.
[2022-05-17] MEDS: Mometasone 220 MCG 14 DOSE INHALER 1 PUFF IH ×2 (09:00→20:05)
[2022-05-17] MEDS: Tiotropium Bromide-Respimat 10 PUFF INH IH (09:00)
[2022-05-17] MEDS: Magnesium Oxide 400 MG TAB PO (09:58)
--- NOTE | 2022-05-17 12:49 | PGE_ITS ---
Date of Service Date of service: 05/17/22 Time of Service: 12:50 Assessment and Plan Assessment and plan (1) Nausea and vomiting: Status: Acute Assessment and plan: Flat and upright is reassuring with no evidence of bowel obstruction Continue antiemetics as needed Add simethicone (2) Respiratory failure with hypoxia: Status: Acute Assessment and plan: multifactoral chf, viral resp illness. oxygen, wean as able. (3) RSV (respiratory syncytial virus infection): Status: Acute Assessment and plan: received steroids in the ED. supportive care (4) Acute on chronic diastolic (congestive) heart failure: Status: Acute Assessment and plan: Return to home diuretic starting tomorrow daily weights, I&O Diet changed back to regular per primary care provider's recommendation Echo done 05/16/20 demonstrates normal systolic LV function w/ LVEF 60-65% with mild LVH. RV size and function are normal. She has mild PHTN. she has biatrial enlargement but only mild MR. (5) Hypokalemia: Status: Acute Assessment and plan: repleted and follow closely as we are diuresing her which will deplete it as well. (6) Atrial fibrillation: Status: Chronic Assessment and plan: cont. home medication. better controlled today using levalbuterol instead of albuterol dig level 0.96 she will need careful monitoring of her potassium and renal function. Qualifiers: Atrial fibrillation type: unspecified Qualified Code(s): I48.91 - Unspecified atrial fibrillation (7) DVT prophylaxis: Assessment and plan: fully anticoagulated (8) Discharge planning issues: Assessment and plan: Discharge home once medically stable. palliative care patient, will place consult for continuity of care discussed with Dr Seals Subjective Subjective Patient reports: nausea and vomiting Interval history since last seen: abdominal distention, nausea and vomiting. Exam Const General: cooperative and comfortable Nutritional Appearance: overweight Orientation: oriented x3 [facility] Ears: hearing grossly normal bilaterally General nose exam: external nose normal Face and sinus: normal facial exam Chest Chest: normal inspection of the chest Resp Effort & Inspection: normal respiratory effort and no cough Auscultation: diminished lung sounds and wheezes Cardio Rate: regular rate GI Inspection: distended Palpation: soft, not firm, no guarding and tender (generalized) Skin General skin exam: no rashes or lesions noted Neuro General: patient alert, patient awake and patient oriented x3 Extrem General: normal to inspection and full ROM Objective Last Vital Signs Temp 36.4 C L 05/17/22 08:30 Pulse 132 H 05/17/22 08:54 Resp 22 05/17/22 08:30 BP 114/66 05/17/22 08:54 Pulse Ox 93 05/17/22 08:59 Laboratory Results - last 24 hr 05/17/22 05/17/22 06:10 06:10 WBC 12.77 H RBC 4.84 Hgb 14.3 Hct 44.1 MCV 91 MCH 29.5 MCHC 32.4 RDW 13.9 Plt Count 190 MPV 10.3 Immature Gran % 0.5 Neutrophils % 77.2 Lymphocytes % 14.3 Monocytes % 7.5 Eosinophils % 0.3 Basophils % 0.2 Nucleated RBC % 0.0 Absolute Neutrophils 9.86 H Absolute Lymphocytes 1.83 Absolute Monocytes 0.96 H Absolute Eosinophils 0.04 Absolute Basophils 0.03 Sodium 129 L Potassium 3.5 Chloride 90 L Carbon Dioxide 32.1 H Anion Gap 6.9 BUN 24 H Creatinine 0.9 Est GFR (CKD-EPI 2020) 63.83 Glucose 102 Calcium 9.2 Time Spent with Patient Time Spent with Patient: 25-34 minutes Time was spent: preparing to see the patient(eg.review tests), obtaining and/or reviewing separately otained hiistory, ordering medications,tests, procedures, referring, communicating with other health home health care case manager, indepentently interpreting results and care coordination
[2022-05-17] MEDS: LORazepam 0.5 MG TAB PO (16:48)
[2022-05-17] MEDS: Bisacodyl 10 MG SUPP PR (17:21)
[2022-05-17] MEDS: Simethicone 80 MG CHEW PO ×2 (18:28→21:50)
[2022-05-17] MEDS: Normal Saline 1,000 ML 80 ML IV (21:00)
[2022-05-17] MEDS: risperiDONE 1 MG TAB 2 MG PO (21:50)
[2022-05-17] MEDS: traZODone 100 MG TAB PO (21:51)
[2022-05-18] VITALS (117 sets, daily range): BP systolic 81–153; BP diastolic 51–88; PULSE 70–148; RESP 15–54; TEMP 30–36.9; O2SAT 74–96
[2022-05-18] MEDS: Ondansetron 4 MG/2 ML VIAL IVP (01:13)
[2022-05-18 06:06] LABS: Abs Immature Grans 0.06 10^3/uL (0.0-0.06); Absolute Basophil Count 0.02 10^3/uL (0.0-0.2); Absolute Lymphocyte Count 1.29 10^3/uL (1.2-3.4); Absolute Monocyte Count 1.47 10^3/uL (0.1-0.8); Absolute Neutrophil Count 12.92 10^3/uL (1.2-6.7); Basophils % 0.1; Eosinophils % 0.1; HCT 44.7 % (36.0-46.0); HGB 14.9 g/dL (11.2-15.7); Immature Grans % 0.4; Lymphocytes % 8.2; MCH 29.5 pg (27.0-33.0); MCHC 33.3 % (32.0-36.0); MCV 89 fL (80-95); MPV 10.6 fL (8.0-11.0); Monocytes % 9.3; Neutrophils % 81.9; Platelet Count 221 10^3/uL (130-400); RBC 5.05 10^6/uL (3.93-5.22); RDW 13.6 % (11.7-14.6); WBC 15.77 10^3/uL (4.4-10.8)
[2022-05-18 06:13] LABS: Absolute Eosinophil Count 0.02 10^3/uL (0.0-0.7)
[2022-05-18 06:15] LABS: Anion Gap 5.9 mmol/L (3-11); BUN 23 mg/dL (7-18); CO2 34.1 mmol/L (21.0-32.0); CREATININE 0.9 mg/dL (0.55-1.02); Chloride 86 mmol/L (98-107); Estimated GFR 63.83 (mL/min/1.73m2); Glucose 114 mg/dL (74-106); Potassium 3.6 mmol/L (3.5-5.1); Sodium 126 mmol/L (136-145)
--- NOTE | 2022-05-18 07:30 | RT.EKG_ITS ---
APPROVED REPORT Exam: Resting ECG Reason for Exam: dyspnea Patient Location: I HR:128 bpm ECG Measurements Heart Rate 128 AXIS DE [id number] P [id number] QRSd 88 QRS -4 QT 352 T 225 QTc 514 Conclusion Atrial fibrillation...V-rate 96-150, irreg A-activity Ventricular premature complex...V complex w/ short R-R interval Inferior infarct, old...Q >35mS, II III aVF Prolonged QT interval...QTc >500mS
[2022-05-18] MEDS: Digoxin 0.125 MG TAB PO (08:18)
[2022-05-18] MEDS: Lactobacillus Acidophilus CAP 1 CAP PO (08:18)
[2022-05-18] MEDS: Polyethylene Glycol 3350 17 GM PACKET PO (08:18)
[2022-05-18] MEDS: Apixaban 5 MG TAB PO (08:19)
[2022-05-18] MEDS: predniSONE 20 MG TAB 40 MG PO (08:19)
[2022-05-18] MEDS: Sertraline 50 MG TAB PO (08:19)
[2022-05-18] MEDS: Docusate Sodium 100 MG CAP PO (08:19)
[2022-05-18] MEDS: Simethicone 80 MG CHEW PO ×2 (08:19→14:51)
[2022-05-18] MEDS: Aspirin E.C. 81 MG TABEC PO (08:19)
[2022-05-18] MEDS: Magnesium Oxide 400 MG TAB PO (08:19)
[2022-05-18] MEDS: Potassium Chloride 20 MEQ TABCR PO (08:19)
[2022-05-18] MEDS: Tiotropium Bromide-Respimat 10 PUFF INH IH (08:34)
[2022-05-18] MEDS: Mometasone 220 MCG 14 DOSE INHALER 1 PUFF IH ×2 (08:34→19:06)
[2022-05-18 08:38] LABS: Lab Add On Test DONE
[2022-05-18 09:01] LABS: NT-proBNP 2930 pg/mL (<300); Troponin I < 50 ng/L (<or=60)
--- NOTE | 2022-05-18 10:15 | DI.CT_ITS ---
Exam(s) CT CHEST/ABD/PEL W EXAM: CT CHEST/ABD/PEL W CLINICAL HISTORY: resp distress, abd pain. TECHNIQUE: Imaging Protocol: Axial computed tomography images with coronal and sagittal reformatted images were created and reviewed CONTRAST MATERIAL: Intravenous: Omnipaque 350 Contrast volume:100 ml Oral: None COMPARISON: CT CT CHEST PE CTA from 05/15/2020 CR XR ABDOMEN FLAT UPRIGHT from 05/17/2022 FINDINGS: CHEST: LUNGS: In the peripheral aspect of the left upper lobe there is a subpleural nodular density measurin g 1.5 x 1.0 cm, slightly larger than previous. No overlying rib destruction.. No other significant focal left lung findings nor pleural effusion. No significant focal findings in the right upper and right middle lobe. Pleural base nodular density in the posterior basal segment of the right lower lo be measures 1.2 x 1.1 cm. No pleural effusion MEDIASTINUM: There is no hilar nor mediastinal adenopathy. Esophagus wall appears uniformly thickene d. Esophagus is not grossly dilated. CARDIAC: Cardiomegaly. Calcified mitral valve. No pericardial effusion.Caliber of the thoracic aort a is within normal limits. Vascular calcifications chest noted including aortic arch and branch vessels off the arch. Diameter of the ascending thoracic aorta is upper normal. Diameter of the mid aortic arch is 2.6 cm. Diameter of the ascending thoracic aorta is slightly prominent at 3 cm. No dissection. OSSEOUS: No significant osseous lesions.No fractures.. ABDOMEN: There is small amount of free fluid in the pelvis. LIVER: There are no focal hepatic lesions nor dilatation of intrahepatic ducts. GALLBLADDER/BILIARY: Layering gallstones noted. Gallbladder wall is difficult to assess because the amount of motion artifact here. CBD is not obviously dilated. PANCREAS: No evidence of pancreatic mass nor dilatation of the pancreatic duct. SPLEEN: Spleen is not enlarged. There are no intrasplenic lesions. Splenic and portal veins are mao nt. ADRENALS: Nodules again noted in both adrenal glands which appear minimally increased in size from 20 21 but this is probably related to the amount of motion more so than actual growth. These are probab ly benign adenomas KIDNEYS: No calculi nor hydronephrosis. No solid renal masses. No cysts evident. ABDOMINAL AORTA: There is an and abdominal aortic EVAR In place. This aortic stent passes through clotted fusiform aneurysm, of the aneurysm sac measuring 4.3 cm. There is a single left-sided limb to this graft which extends to the level of the proximal l eft external iliac artery. This appears patent. The right common external iliac arteries are occlud ed. There are stents again noted in the proximal celiac and superior mesenteric arteries and these v essels appear patent although is difficult to assess for intra stent stenosis. LYMPH NODES: There is no retroperitoneal nor paraaortic adenopathy. ABDOMINAL WALL: No evidence of significant anterior abdominal wall nor inguinal hernia. GI: There are abnormal appearing small bowel loops in the abdomen central and left of center which ap pear edematous and dilated and these extend into the pelvis where the loops are dilated to 4.2 cm kristopher meter and there is some fluid in the dependent aspect of the pelvis PELVIS: LYMPH NODES: There is no intrapelvic nor inguinal adenopathy. GI: No evidence of appendicitis.No evidence of sigmoid diverticulitis. URINARY BLADDER: Urinary bladder is grossly thickened with wall diameter of 1.5 cm. Probably infecti ous. REPRODUCTIVE: Uterus size age-appropriate. No ovarian masses seen. OSSEOUS: No significant osseous lesions. No fractures. IMPRESSION: 1. There is an aortic stent graft with stents also noted at the origins of the celiac and superior me senteric arteries. The aortic graft extends into the left iliac system and does not appear occluded. 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 2. There are edematous and dilated small bowel loops in the abdomen and pelvis. Enteritis versus isc hemic, given the vasculopath history here. Small amount of free fluid noted in the pelvis 3. Grossly thickened urinary bladder wall noted probably related to severe cystitis. 4. In the left upper lobe there is a subpleural 15 x 10 millimeter nodular infiltrate and there is a 12 x 11 millimeter nodular density in the right lower lobe. These require appropriate follow-up. 5. bilateral adrenal adenomas, unchanged from 05/15/2020. Report discussed by phone with the hospitalist RADIATION DOSE DELIVERED: 1,094.75mGy.cm Total DLP DATA REPOSITORY: All CT scans at this facility are submitted to the National Radiology Data Registry (NRDR) Dose Index Registry (DIR) with the [employer] (ACR). RADIATION OPTIMIZATION: All CT scans at this facility use at least one of these dose optimization te chniques: automated exposure control; mA and/or kV adjustment per patient size (includes targeted exa ms where dose is matched to clinical indication); or iterative reconstruction.
[2022-05-18] MEDS: Metoprolol 5 MG/5 ML VIAL IVP (10:32)
[2022-05-18] MEDS: Normal Saline Flush 10 ML SYR IVP (10:33)
[2022-05-18 10:42] LABS: Source Nasal/Nares
[2022-05-18 10:54] LABS: Bilirubin Negative (Negative); Blood Moderate (Negative); Clarity Sl Cloudy (Clear); Glucose Negative (Negative); Ketones Negative (Negative); Leukocyte Esterase Large (Negative); Nitrite Negative (Negative); Urobilinogen 0.2 mg/dL (Up to 0.2)
[2022-05-18 10:56] LABS: Lactate 2.7 mmol/L (0.6-1.4)
[2022-05-18 11:04] LABS: BE 10 mmol/L (-2-3); HCO3 34 mmol/L (22-26); pCO2 52 mmHg (35-45); pH 7.43 (7.35-7.45); pO2 58 mmHg (80-105); sO2 90 % (95-98); tCO2 30 mmol/L (23-27)
[2022-05-18 11:04] LABS: C & S Indicated? Yes; WBC >50 HPF (0-5)
[2022-05-18 11:06] LABS: FIO2 42 %; FIO2L 40 L; Site Right Radial
[2022-05-18 11:17] LABS: COVID-19 PCR Negative (Negative)
[2022-05-18 11:35] LABS: Procalcitonin < 0.1 ng/mL
[2022-05-18] MEDS: Omnipaque 350 MG/ML 500 ML BTL-Imaging package IJ (11:50)
[2022-05-18] MEDS: Normal Saline - Diluent 50 ML VIAL IJ (11:51)
--- NOTE | 2022-05-18 12:07 | W.POCUS ---
Pocus Exam Limited Thoracic Lung Exam DATE OF EXAM: 05/18/22 TIME OF EXAM: 10:32 PROVIDER THAT PERFORMED THE STUDY: Rosendo Seals REASON FOR EXAM: Hypoxia, Pneumonia and Shortness ofBreath VISUALIZED STRUCTURES: right anterior, left anterior, right lateral, left lateral, right posterior, left posterior, right subcostal and left subcostal PERTINENT FINDINGS/IMPRESSION: B-lines/left side thoracis location: lateral and posterior, B-lines/right side thoracis location: lateral and posterior and Pneumonia (bibasilar consolidations, subpleural consolidations; no air bronchograms; no significant effusions)
--- NOTE | 2022-05-18 12:08 | CMPROGNOTE_ITS ---
- If Service Date Differs Date of service: 05/18/22 Time of Service: 12:08 Care Management Progress Note S/O: Deb was resting in bed, on high flow O2 when CM attempted to meet with her. Her daughter had stepped out of the room. Deb was transferred to the ICU today after becoming more dsypneic, hypoxic and tachycardic. She and her family met with Dr. Salinas, who is her PCP and her palliative care provider. Per report, she was clear that she does not want surgical intervention, but she does want antibiotics if that will help her remain comfortable. She had a chest/abdomen CT today, a point of care ultrasound, and an echo. CM will continue to follow. A: Deb is an 81 year old woman admitted on 05/15/22 with respiratory failure P:Anticipate Deb will be discharged home when medically cleared by provider with [facility] services (if indicated). She will follow up with community provide rs and discharge plan of care as prescribed. Family will drive her home when ready. Pt declines referral to [facility]. CM will continue to follow.
--- NOTE | 2022-05-18 12:14 | W.POCUS ---
Pocus Exam Limited Cardiac Exam DATE OF EXAM: 05/18/22 TIME OF EXAM: 10:50 PROVIDER THAT PERFORMED THE STUDY: Rosendo Seals IS THIS A REPEAT EXAM DURING THIS ENCOUNTER: no REASON FOR EXAM: Dyspnea and Hypoxia VISUALIZED STRUCTURES: four chambers, left atrium (enlarged), right atrium (enlarged), aortic valve (calcified trileaflet ), mitral valve (MAC w/ mitral stenosis), Interventricular septum and IVC VIEW OBTAINED: Apical 4-Chamber, Parasternal long-axis (poor images d/t lung shadow), Parasternal short-axis and Subxiphoid PERTINENT FINDINGS/IMPRESSION: IVC inspiratory collapsability (1.68 cm maximum w/ 65% collapsability; estm RAP 3 cm); No LV dysfunction (LVH), No plethoric IVC, No RV dilation and No RV dysfunction (normal RV function, mild tricuspid regurgitation w/ estimated RVSP 36 cm) Exam complete
--- NOTE | 2022-05-18 12:46 | W.EVENT ---
Date of service: 05/18/22 Time of Service: 10:00 Event Note: CTSP by nursing and presented at the bedside w/ Ella Koenig NP d/t patient more dyspneic and hypoxic and tachycardic (SPO2 85% on 2 lpm NC which incr. to 90% on HFNC 40 Lpm. Patient nauseated by no CP. Harsh productive cough of thick yellow sputum. Tachypneic and in atrial fibrilation @ 120's to 140 bpm, patient given lopressor 5 mg IVP and HR came down to 88 bpm. BP 153/88 and came down to 118/55 after the lopressor She is tachypneic and using her accesssory muscles, lungs w/ coarse expirtory wheezes diffusely w/ bilateral basilar rales and rhonchi; heart irregularly irregular; abdomen: active bowel sounds, soft, mild generalized tenderness w/out rebound tenderness or guarding; extremities are cool but not cyanotic A/P: She appears to be in acute on chronic hypoxic respiratory failure d/t RSV pneumonia w/ possible superimposed bacterial pneumonia complicated by sepsis and rapid atrial fibrillation I will give her fluid bolus w/ LR, agree w/ Ms Bravo plans for CT chest/abdomen/pelvis given the patient's hx of ischemic colitis and prior AAA repair and now w/ protracted vomiting overnight (4 x over 12hr shift last night) and will get blood and urine cultures and begin broad spectrum antibiotics (Vancomycin/doxycycline and cefepime) (note she has an allergy to amoxicillin and her QTC is too prolonged to use azithromycin per pharmacy). Family presented to the bedside while I was completing her POCUS exam. Limited POCUS of lungs shows bibasilar to mid lung field diffuse B lines, subpleural consolidations, upper hamm w/ A line pattern; no significant effusions; limited echo shows preserved LV and RV function but significant aortic and mitral calcifications w/ severely limited excursion of her mitral valve opening; her IVC is small and collapses over 50% therefore she is not volume overloaded; although this does not mean she is volume responsive. (I could not get good parasternal view to measure her LVOT diameter and therefore did not get C.O. CC time spent outside of POCUS exam about 30 minutes (putting in orders, discussion w/ family and staff and arranging transfer to ICU Time Spent with Patient Time spent in critical care(minutes): 45 Time Spent Included: Coordination of care, Chart review, Documenting critically ill care, Time at immediate bedside, Discussing critically ill care with other medical staff and Discussing Hx and/or treatment with family
--- NOTE | 2022-05-18 13:21 | DI.US_ITS ---
APPROVED REPORT EXAM: Comprehensive 2D, Doppler, and color-flow Echocardiogram Patient Location: In-Patient Room/Bed: [id number] Side Stitcher: Porsha Lazo RDCS (AE) Indications: SOB Other Information Study Quality: Fair. Technically limited study due to body habitus, inability to position patient exa m done bedside supine. Conclusion Concentric left ventricular hypertrophy. The left ventricular chamber size is small. Estimated ejec tion fraction is 55%. No segmental wall motion abnormalities The right ventricle appears normal in size and systolic function The left atrium is severely dilated. The right atrium is moderately dilated The aortic valve is sclerotic and trileaflet without stenosis or regurgitation Mitral annular calcification. Mild mitral regurgitation Normal tricuspid valve with mild regurgitation. Estimated right ventricular systolic pressure is 36 mmHg Wall motion Left Ventricle Left ventricular cavity is small. Mild concentric left ventricular hypertrophy. There is no ventricul ar septal defect visualized. LVEF is 55%. Right Ventricle The right ventricle is normal size. Right ventricular systolic function is normal The RVSP is 36.0 mm Hg. Atria Left atrium is severely dilated. Right atrium is moderately dilated. The interatrial septum is intact with no evidence for an atrial septal defect. Aortic Valve The Aortic valve is sclerotic. Aortic valve is trileaflet. There is no aortic valvular stenosis. No a ortic regurgitation is present. Mitral Valve Severe mitral annular calcification. No evidence of mitral valve stenosis. Mild mitral regurgitation. Tricuspid Valve The tricuspid valve is normal in structure. There is no tricuspid valve stenosis. Mild tricuspid regu rgitation. Pulmonic Valve Pulmonic valve is not well visualized. There is no pulmonic valvular stenosis. There is no pulmonic v alvular regurgitation. Great Vessels The aortic root is normal in size. The ascending aorta is normal in size. Aortic arch is not visualiz ed. IVC is normal in size and collapses >50% with inspiration. Pericardium There is no pericardial effusion. 2D Dimensions IVSD d PLAX 1.08 cm F: 0.6-1.0 LV Vol A2C d MOD 71.1 mL LVPW d PLAX 1.08 cm F: 0.6 - 1.0 LV Vol A4C d MOD 67.3 mL LVID d PLAX 4.92 cm F: 3.8 - 5.2 LA vol/ BSA A4C s A-L 71.0 mL/m2 LVDs 3.75 cm F: 2.2 - 3.5 LA Area A4C s MOD 31.64 cm2 Ao Root d 2.61 cm F: 2.7 - 3.3 LV EF A4C MOD 52.4 % RA Area A4C 22.40 cm2 LV EF A2C MOD 51.0 % RA Vol/ BSA A4C s A-L 45.0 mL/m2 LV EF Biplane MOD 51.9 % Ao Asc Diam d 3.09 cm F: 2.3 - 3.1 SV 36.78 mL LV EF Teichholz 46.4 % SV Index 21.87 mL/m2 LVEF (Alonzo's) 51.87 % F: 54 - 74 LV Volume 56.54 mL F: 46 - 106 LV Volume Index 33.65 mL/m2 F: 29 - 61 LV Vol Biplane MOD 70.9 mL FS 23.25 % LV Diastology MV E Vmax 1.54 (0.4-1.3 m/s) Aortic Valve LVOT Area 2.72 cm2 AoV Area Vmax 1.88 cm2 LVOT Vmax 0.74 m/s AoV Area/ BSA (Vmax) 1.12 cm2/m2 LVOT Mean Marc. 0.52 m/s AMINA Mean Marc. 1.83 cm2 LVOT Peak Grad 2.2 mmHg AMINA Mean Marc. Index 1.09 cm2/m2 LVOT Mean Grad 1.2 mmHg LVOT VTI 0.108 m LVOT Diam s 1.85 cm AoV Vmax 1.08 m/s Velocity Ratio 0.69 AoV Mean Marc. 0.78 m/s AoV Peak Grad 4.6 mmHg LVOT SV 29.48 mL AoV Mean Grad 2.8 mmHg AoV VTI 0.154 m AoV Area VTI 1.91 cm2 AoV Area/ BSA (VTI) 1.14 cm/m2 Mitral Valve MV DT 228 (160-240 msec) MV PHT 66 msec MV Area PHT 3.33 cm2 MV VTI 0.202 m MV Area VTI 1.46 (4.0-6.0 cm2) Pulmonary Valve PV Vmax 0.81 (0.5-1.5 m/s) RVOT Peak Gr. 2.60 mmHg PV Peak Grad 2.7 mmHg RVOT Mean Gr. 1.25 mmHg PV Mean Grad 1.5 mmHg RVOT VTI 0.129 m PV VTI 0.138 m RVOT Vmax 0.81 m/s Tricuspid Valve TR Peak Grad 33.0 mmHg TR Vmax 2.87 m/s RA Pressure 3.00 mmHg RVSP (TR) 36.0 mmHg
[2022-05-18] MEDS: CEFEPIME 2 GM in Normal Saline 100 ML IVPB (13:37)
--- NOTE | 2022-05-18 14:12 | PCPN_ITS ---
Date of service: 05/18/22 Time of Service: 14:12 Assessment and Plan Assessment and plan (1) Nausea and vomiting: Status: Acute (2) RSV (respiratory syncytial virus infection): Status: Acute (3) UTI (urinary tract infection): Status: Acute Assessment and plan: Discussion with family and Dr. Dey Deb is clear that she wants treatment for simple things like pneumonia requiring antibiotics but she does not want surgery. She understands that her choice to not have surgery may result in her dying. She does have capacity to make this decision. Regarding CODE STATUS I had spoken to Deb many times in the past and Mimi and Charly today and she is a DNR DNI. Subjective Subjective Interval history since last seen: Deb had a bad evening and had nausea and vomiting. She did have a CAT scan that was concerning for possible ischemic bowel. She presently is in the ICU and when I first walked and was sleeping. She did wake up easily when I went over to speak with her. She said she is feeling better. She had a bowel movement and does not feel like her stomach is bothering her as much. She figured she has pneumonia and now that she is getting antibiotics she will feel better. Her grandson Charly and her daughter Mimi are in the room. I did address CODE STATUS with Charly and Mimi. Deb had told me many times that she did not want to be resuscitated did not want CPR. They understand that that is her wishes. If she has something simple like pneumonia she would want treatment but she does not want aggressive care With Mimi Crum and myself in the room I did ask Deb if surgery was an option, and she might without surgery, which she want to go through surgery. She was emphatic that she did not want to go through surgery even if not going through surgery resulted in . She understands that even if she chose surgery that that to might not mean that she survives, but she does not want to go through surgery. Mimi is understanding her mom's wishes and chooses to follow them Exam Narrative Exam Narrative: Deb knew who I was. Her heart was tachycardic. Was difficult to assess her breathing. She did have some scattered bowel sounds but most importantly her exam was nontender Objective Last Vital Signs Temp 98.4 F 05/18/22 12:20 Pulse 92 H 05/18/22 12:20 Resp 23 05/18/22 13:10 BP 114/59 L 05/18/22 12:20 Pulse Ox 90 L 05/18/22 13:10 Laboratory Results - last 24 hr 05/18/22 05/18/22 05/18/22 05:20 05:20 05:20 WBC 15.77 H RBC 5.05 Hgb 14.9 Hct 44.7 MCV 89 MCH 29.5 MCHC 33.3 RDW 13.6 Plt Count 221 MPV 10.6 Immature Gran % 0.4 Neutrophils % 81.9 Lymphocytes % 8.2 Monocytes % 9.3 Eosinophils % 0.1 Basophils % 0.1 Nucleated RBC % 0.0 Absolute Neutrophils 12.92 H Absolute Lymphocytes 1.29 Absolute Monocytes 1.47 H Absolute Eosinophils 0.02 Absolute Basophils 0.02 ABG Sample Site ABG pH ABG pCO2 ABG pO2 ABG HCO3 ABG Total CO2 ABG O2 Saturation ABG Base Excess VBG Lactate Oxygen Liter Flow FiO2 Sodium 126 L Potassium 3.6 Chloride 86 L Carbon Dioxide 34.1 H Anion Gap 5.9 BUN 23 H Creatinine 0.9 Est GFR (CKD-EPI 2020) 63.83 Glucose 114 H Calcium 9.0 Troponin I NT-Pro-B Natriuret Pep Procalcitonin Urine Color Urine Clarity Urine pH Ur Specific [place] Urine Protein Urine Ketones Urine Blood Urine Nitrite Urine Bilirubin Urine Urobilinogen Ur Leukocyte Esterase Urine RBC Urine WBC Ur Epithelial Cells Urine Crystals Urine Bacteria Urine Mucus Ur Culture Indicated? Urine Glucose COVID-19 Source SARS-CoV-2 (PCR) Add-On Test Request DONE 05/18/22 05/18/22 05/18/22 05:20 10:30 10:30 WBC RBC Hgb Hct MCV MCH MCHC RDW Plt Count MPV Immature Gran % Neutrophils % Lymphocytes % Monocytes % Eosinophils % Basophils % Nucleated RBC % Absolute Neutrophils Absolute Lymphocytes Absolute Monocytes Absolute Eosinophils Absolute Basophils ABG Sample Site ABG pH ABG pCO2 ABG pO2 ABG HCO3 ABG Total CO2 ABG O2 Saturation ABG Base Excess VBG Lactate Oxygen Liter Flow FiO2 Sodium Potassium Chloride Carbon Dioxide Anion Gap BUN Creatinine Est GFR (CKD-EPI 2020) Glucose Calcium Troponin I < 50 NT-Pro-B Natriuret Pep 2930 H Procalcitonin Urine Color Yellow Urine Clarity Sl Cloudy Urine pH 7.0 Ur Specific [place] 1.020 Urine Protein >=300 H Urine Ketones Negative Urine Blood Moderate H Urine Nitrite Negative Urine Bilirubin Negative Urine Urobilinogen 0.2 Ur Leukocyte Esterase Large H Urine RBC Not Applicable Urine WBC >50 H Ur Epithelial Cells Not Applicable Urine Crystals Not Applicable Urine Bacteria Not Applicable Urine Mucus Not Applicable Ur Culture Indicated? Yes Urine Glucose Negative COVID-19 Source Nasal/Nares SARS-CoV-2 (PCR) Negative Add-On Test Request 05/18/22 05/18/22 05/18/22 10:45 10:45 10:58 WBC RBC Hgb Hct MCV MCH MCHC RDW Plt Count MPV Immature Gran % Neutrophils % Lymphocytes % Monocytes % Eosinophils % Basophils % Nucleated RBC % Absolute Neutrophils Absolute Lymphocytes Absolute Monocytes Absolute Eosinophils Absolute Basophils ABG Sample Site Right Radial ABG pH 7.43 ABG pCO2 52 H ABG pO2 58 L ABG HCO3 34 H ABG Total CO2 30 H ABG O2 Saturation 90 L ABG Base Excess 10 H VBG Lactate 2.7 H* Oxygen Liter Flow 40 FiO2 42 Sodium Potassium Chloride Carbon Dioxide Anion Gap BUN Creatinine Est GFR (CKD-EPI 2020) Glucose Calcium Troponin I NT-Pro-B Natriuret Pep Procalcitonin < 0.1 Urine Color Urine Clarity Urine pH Ur Specific [place] Urine Protein Urine Ketones Urine Blood Urine Nitrite Urine Bilirubin Urine Urobilinogen Ur Leukocyte Esterase Urine RBC Urine WBC Ur Epithelial Cells Urine Crystals Urine Bacteria Urine Mucus Ur Culture Indicated? Urine Glucose COVID-19 Source SARS-CoV-2 (PCR) Add-On Test Request C/A/P IMPRESSION: 1. 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 The aortic graft extends into the left iliac system and does not appear occluded.? 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 2. There are edematous and dilated small bowel loops in the abdomen and pelvis.? Enteritis versus ischemic, given the vasculopath history here.? Small amount of free fluid noted in the pelvis 3. Grossly thickened urinary bladder wall noted probably related to severe cystitis. 4. In the left upper lobe there is a subpleural 15 x 10 millimeter nodular infiltrate and there is a 12 x 11 millimeter nodular density in the right lower lobe.? These require appropriate follow-up. 5. bilateral adrenal adenomas, unchanged from 05/15/2020.
[2022-05-18] MEDS: VANCOMYCIN/WATER (PEG) 1.75 GM/350 ML BAG IV (14:45)
[2022-05-18] MEDS: Lactated Ringers 500 ML IV (14:51)
[2022-05-18] MEDS: Normal Saline 500 ML 30 ML IV (15:12)
[2022-05-18 15:50] LABS: Abs Immature Grans 0.11 10^3/uL (0.0-0.06); Absolute Basophil Count 0.02 10^3/uL (0.0-0.2); Absolute Lymphocyte Count 0.77 10^3/uL (1.2-3.4); Basophils % 0.1; HCT 44.2 % (36.0-46.0); HGB 14.8 g/dL (11.2-15.7); Immature Grans % 0.7; Lymphocytes % 4.7; MCH 30.3 pg (27.0-33.0); MCHC 33.5 % (32.0-36.0); MCV 90 fL (80-95); MPV 10.5 fL (8.0-11.0); Monocytes % 3.5; Platelet Count 200 10^3/uL (130-400); RBC 4.89 10^6/uL (3.93-5.22); RDW 13.9 % (11.7-14.6); RDW-SD 45.4 fL; WBC 16.38 10^3/uL (4.4-10.8)
[2022-05-18 15:51] LABS: Lactate 1.4 mmol/L (0.6-1.4)
[2022-05-18 15:52] LABS: Absolute Monocyte Count 0.57 10^3/uL (0.1-0.8); Absolute Neutrophil Count 14.91 10^3/uL (1.2-6.7)
[2022-05-18 16:02] LABS: BUN 20 mg/dL (7-18); Calcium 8.7 mg/dL (8.5-10.1); Chloride 90 mmol/L (98-107); Estimated GFR 56.25 (mL/min/1.73m2); Glucose 144 mg/dL (74-106); Potassium 4.1 mmol/L (3.5-5.1); Sodium 128 mmol/L (136-145)
--- NOTE | 2022-05-18 16:24 | SCONE_ITS ---
Date of service: 05/18/22 Time of Service: 13:30 Assessment and Plan Assessment and plan (1) Gaseous distention of intestine determined by X-ray: Status: Acute Assessment and plan: Involving bowel obstruction versus infectious colitis versus ischemic colitis. Currently patient is not having any abdominal pain or signs of peritonitis. She does have a stent in the celiac axis. Patient states she does not want to be intubated and does not want any further surgery. If she did develop peritonitis, again I think she would be best served with transfer to a tertiary center. Even placing in an NG tube would compromise her ability to receive oxygenation. -Antibiotics and steroids per hospitalist service Continue supportive care. We will follow peripherally as needed. 60 mins spent with the patient today. (2) UTI (urinary tract infection): Status: Acute (3) Nausea and vomiting: Status: Acute (4) RSV (respiratory syncytial virus infection): Status: Acute (5) Respiratory failure with hypoxia: Status: Acute (6) Physician orders for life-sustaining treatment (POLST) form indicates patient wish for [id number] status: Status: Acute (7) Pulmonary hypertension: Status: Acute (8) Acute on chronic diastolic (congestive) heart failure: Status: Acute (9) Hypoxia: Status: Acute (10) ST segment changes on electrocardiogram: Status: Acute (11) Atrial fibrillation: Status: Chronic Qualifiers: Atrial fibrillation type: unspecified Qualified Code(s): I48.91 - Unspecified atrial fibrillation (12) Nonspecific ulcerative proctitis: Status: Chronic (13) Coronary disease: Status: Chronic (14) COPD (chronic obstructive pulmonary disease): Status: Chronic (15) SCHAEFFER (nonalcoholic steatohepatitis): Status: Chronic (16) COPD (chronic obstructive pulmonary disease) with emphysema: (17) CVD (cardiovascular disease): (18) Dependence on supplemental oxygen: (19) Essential (primary) hypertension: (20) Hiatus hernia syndrome: (21) History of tobacco use: (22) History of tobacco use: (23) Right pontine CVA: History of Present Illness Narrative: Patient seen at the request of Dr. Dey regarding acute abdominal pain. I did see and evaluate the patient this afternoon and again this evening. She is denying any abdominal pain currently. She has some my mild right lower quadrant pain earlier today. She feels that has resolved at this time. She also had nausea and vomiting earlier in the day which is also resolved. She did have a small nonbloody stool this evening. Patient is recurrently receiving high flow nasal oxygen. Which will make placing an NG tube difficult. We will hold on placing an NG tube at this time. 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 She does have a celiac and mesenteric stent in place. From CT scan I cannot say if there is patency of the stents. However at this time her abdomen is soft and she does have bowel sounds and no signs of acute peritonitis. Patient does have a history of inflammatory bowel noted on her chart. I think most of her problems stem from her acute respiratory failure. If this is an exacerbation of her inflammatory bowel disease, the steroids would cover this. Up until this point in her admission she has not been on antibiotics, so C. difficile colitis would be low on the differential. Currently she is experiencing respiratory failure with hypoxia due to RSV. She does not want to be placed on a ventilator and has made this clear. She is also made it clear that she does not want to have any surgery. If her course changes and she does develop an acute abdomen, I think she would best be served by transfer to a tertiary care center. -Patient is currently on doxycycline/cefepime/vancomycin for her lung issues. She is also on steroids. These are being managed by the hospitalist service. CT IMPRESSION: 1. 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 The aortic graft extends into the left iliac system and does not appear occluded.? 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 2. There are edematous and dilated small bowel loops in the abdomen and pelvis.? Enteritis versus ischemic, given the vasculopath history here.? Small amount of free fluid noted in the pelvis 3. Grossly thickened urinary bladder wall noted probably related to severe cystitis. 4. In the left upper lobe there is a subpleural 15 x 10 millimeter nodular infiltrate and there is a 12 x 11 millimeter nodular density in the right lower lobe.? These require appropriate follow-up. 5. bilateral adrenal adenomas, unchanged from 05/15/2020. -I did personally review her films. Conclusion Concentric left ventricular hypertrophy.? The left ventricular chamber size is small.? Estimated ejection fraction is 55%.? No segmental wall motion abnormalities The right ventricle appears normal in size and systolic function The left atrium is severely dilated.? The right atrium is moderately dilated The aortic valve is sclerotic and trileaflet without stenosis or regurgitation Mitral annular calcification.? Mild mitral regurgitation Normal tricuspid valve with mild regurgitation.? Estimated right ventricular systolic pressure is 36 mmH Review of Systems Unobtainable due to (Limited by patient's ability to communicate and her oxygen needs.) PFSH All Active Problems (Updated 05/18/22 @ 21:15 by Helena Dorman DO) Gaseous distention of intestine determined by X-ray (Acute) UTI (urinary tract infection) (Acute) Nausea and vomiting (Acute) Hypokalemia (Acute) RSV (respiratory syncytial virus infection) (Acute) Respiratory failure with hypoxia (Acute) DNR (do not resuscitate) (Acute) Physician orders for life-sustaining treatment (POLST) form indicates patient wish for [id number] status (Acute) Pulmonary hypertension (Acute) Acute on chronic diastolic (congestive) heart failure (Acute) Hypoxia (Acute) ST segment changes on electrocardiogram (Acute) Atrial fibrillation (Chronic) Tubular adenoma of colon (Chronic 03/04/14) 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 plaque per [place] onychomycosis Cognitive change Complete edentulism, unspecified Congestive heart failure Conjunctivitis COPD (chronic obstructive pulmonary disease) with emphysema CVD (cardiovascular disease) Dependence on supplemental oxygen Depression a. with psychotic features Diarrhea (11/19/14) Discharge planning issues 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 02/18-09/19, normal metanephrines, normal dexamethasone suppression. 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 hypokalemia b. hypomagnesemia Elevated LDH Elevated serum lactate dehydrogenase (LDH) Encounter for monitoring diuretic therapy Essential (primary) hypertension 06/01/13 Hiatus hernia syndrome 12/05/14 [facility] [place]; EGD History of tobacco use 100pack/years History of tobacco use Hyperlipidemia Increased body mass index Ischemic bowel disease 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) Palliative care patient Palpitations 08/26/14; FREQ P[facility] Palpitations Right hip pain Right pontine CVA [facility]-01/30/16; 8X5 mm RUQ abdominal pain Seborrheic keratosis (01/01/16) punch/shave biopsy skin of left arm Seborrheic keratosis (01/01/16) Shortness of breath (10/14/16) SVT (supraventricular tachycardia) (09/15/14) Tachycardia Urinary frequency (08/21/15) Vascular insufficiency of intestine (06/12/15) Weight loss (04/02/14) Weight loss, abnormal (~06/11/21) 30# in last yr Surgical History Appendectomy Biopsy, Soft Tissue (01/01/16) Punch/shave biospy of skin of left arm, seborrheic keratosis Colectomy (09/18/14) DR. GRAJEDA Hemicolectomy [facility]; 09/15/14; RIGHT History of bilateral ligation of fallopian tubes History of partial colectomy 09/15/14 right hemicolectomy w/ileocolic anastomosis History of partial surgical removal of colon (09/15/14) Ligation of fallopian tube S/P AAA repair S/P tubal ligation Status post appendectomy Family History Mother Essential hypertension Alzheimer's disease Father Heart disease Breast cancer Prostate cancer Sister Myocardial infarction Sister Myocardial infarction Brother Cancer Sister No problems noted. Sister No problems noted. Brother Substance abuse Brother Substance abuse Brother Substance abuse Cancer Son No problems noted. Daughter No problems noted. Social History Smoking/Tobacco Use Status: Former Tobacco Use Smoking risk assessment performed?: Yes Alcohol Intake: never Drug use: Never Substance use type: does not use Household members: other Details: 4 Pets and animals: Yes Pets and animals: cat(s) and dog(s) Current gender identity: decline to answer What is your relationship status?: refused to answer How often do you talk on the phone with friends or family?: decline to answer How often do you get together with friends or relatives?: decline to answer How often do you attend hinduism or caodaism services?: decline to answer Do you belong to any clubs or organized social groups?: decline to answer Panel score (0-1 are the most socially isolated patients): 0 What type of physical activity do you participate in: none Lelo/Shinto: No preference Special lelo needs: No Do you feel safe at home: Yes Do you feel safe in your relationship?: Yes Exam Resp Other: Patient is on high flow nasal cannula. She has very limited capacity to speak where she gets hypoxic. Her lungs show diminished volumes and decreased breath sounds Neuro General: patient alert Results Last Vital Signs Temp 36.9 C 05/18/22 12:20 Pulse 81 05/18/22 14:01 Resp 25 H 05/18/22 15:30 BP 113/55 L 05/18/22 14:01 Pulse Ox 90 L 05/18/22 15:30 Labs 05/18/22 15:40 05/18/22 15:40 Labs: Laboratory Results - last 24 hr 05/18/22 05/18/22 05/18/22 05:20 05:20 05:20 WBC 15.77 H RBC 5.05 Hgb 14.9 Hct 44.7 MCV 89 MCH 29.5 MCHC 33.3 RDW 13.6 Plt Count 221 MPV 10.6 Immature Gran % 0.4 Neutrophils % 81.9 Lymphocytes % 8.2 Monocytes % 9.3 Eosinophils % 0.1 Basophils % 0.1 Nucleated RBC % 0.0 Absolute Neutrophils 12.92 H Absolute Lymphocytes 1.29 Absolute Monocytes 1.47 H Absolute Eosinophils 0.02 Absolute Basophils 0.02 ABG Sample Site ABG pH ABG pCO2 ABG pO2 ABG HCO3 ABG Total CO2 ABG O2 Saturation ABG Base Excess VBG Lactate Oxygen Liter Flow FiO2 Sodium 126 L Potassium 3.6 Chloride 86 L Carbon Dioxide 34.1 H Anion Gap 5.9 BUN 23 H Creatinine 0.9 Est GFR (CKD-EPI 2020) 63.83 Glucose 114 H Calcium 9.0 Troponin I NT-Pro-B Natriuret Pep Procalcitonin Urine Color Urine Clarity Urine pH Ur Specific [place] Urine Protein Urine Ketones Urine Blood Urine Nitrite Urine Bilirubin Urine Urobilinogen Ur Leukocyte Esterase Urine RBC Urine WBC Ur Epithelial Cells Urine Crystals Urine Bacteria Urine Mucus Ur Culture Indicated? Urine Glucose COVID-19 Source SARS-CoV-2 (PCR) Add-On Test Request DONE 05/18/22 05/18/22 05/18/22 05:20 10:30 10:30 WBC RBC Hgb Hct MCV MCH MCHC RDW Plt Count MPV Immature Gran % Neutrophils % Lymphocytes % Monocytes % Eosinophils % Basophils % Nucleated RBC % Absolute Neutrophils Absolute Lymphocytes Absolute Monocytes Absolute Eosinophils Absolute Basophils ABG Sample Site ABG pH ABG pCO2 ABG pO2 ABG HCO3 ABG Total CO2 ABG O2 Saturation ABG Base Excess VBG Lactate Oxygen Liter Flow FiO2 Sodium Potassium Chloride Carbon Dioxide Anion Gap BUN Creatinine Est GFR (CKD-EPI 2020) Glucose Calcium Troponin I < 50 NT-Pro-B Natriuret Pep 2930 H Procalcitonin Urine Color Yellow Urine Clarity Sl Cloudy Urine pH 7.0 Ur Specific [place] 1.020 Urine Protein >=300 H Urine Ketones Negative Urine Blood Moderate H Urine Nitrite Negative Urine Bilirubin Negative Urine Urobilinogen 0.2 Ur Leukocyte Esterase Large H Urine RBC Not Applicable Urine WBC >50 H Ur Epithelial Cells Not Applicable Urine Crystals Not Applicable Urine Bacteria Not Applicable Urine Mucus Not Applicable Ur Culture Indicated? Yes Urine Glucose Negative COVID-19 Source Nasal/Nares SARS-CoV-2 (PCR) Negative Add-On Test Request 05/18/22 05/18/22 05/18/22 10:45 10:45 10:58 WBC RBC Hgb Hct MCV MCH MCHC RDW Plt Count MPV Immature Gran % Neutrophils % Lymphocytes % Monocytes % Eosinophils % Basophils % Nucleated RBC % Absolute Neutrophils Absolute Lymphocytes Absolute Monocytes Absolute Eosinophils Absolute Basophils ABG Sample Site Right Radial ABG pH 7.43 ABG pCO2 52 H ABG pO2 58 L ABG HCO3 34 H ABG Total CO2 30 H ABG O2 Saturation 90 L ABG Base Excess 10 H VBG Lactate 2.7 H* Oxygen Liter Flow 40 FiO2 42 Sodium Potassium Chloride Carbon Dioxide Anion Gap BUN Creatinine Est GFR (CKD-EPI 2020) Glucose Calcium Troponin I NT-Pro-B Natriuret Pep Procalcitonin < 0.1 Urine Color Urine Clarity Urine pH Ur Specific [place] Urine Protein Urine Ketones Urine Blood Urine Nitrite Urine Bilirubin Urine Urobilinogen Ur Leukocyte Esterase Urine RBC Urine WBC Ur Epithelial Cells Urine Crystals Urine Bacteria Urine Mucus Ur Culture Indicated? Urine Glucose COVID-19 Source SARS-CoV-2 (PCR) Add-On Test Request 05/18/22 05/18/22 05/18/22 15:40 15:40 15:40 WBC 16.38 H RBC 4.89 Hgb 14.8 Hct 44.2 MCV 90 MCH 30.3 MCHC 33.5 RDW 13.9 Plt Count 200 MPV 10.5 Immature Gran % 0.7 Neutrophils % 91.0 Lymphocytes % 4.7 Monocytes % 3.5 Eosinophils % 0.0 Basophils % 0.1 Nucleated RBC % 0.0 Absolute Neutrophils 14.91 H Absolute Lymphocytes 0.77 L Absolute Monocytes 0.57 Absolute Eosinophils 0.00 Absolute Basophils 0.02 ABG Sample Site ABG pH ABG pCO2 ABG pO2 ABG HCO3 ABG Total CO2 ABG O2 Saturation ABG Base Excess VBG Lactate 1.4 Oxygen Liter Flow FiO2 Sodium 128 L Potassium 4.1 Chloride 90 L Carbon Dioxide 35.0 H Anion Gap 3.0 BUN 20 H Creatinine 1.0 Est GFR (CKD-EPI 2020) 56.25 Glucose 144 H Calcium 8.7 Troponin I NT-Pro-B Natriuret Pep Procalcitonin Urine Color Urine Clarity Urine pH Ur Specific [place] Urine Protein Urine Ketones Urine Blood Urine Nitrite Urine Bilirubin Urine Urobilinogen Ur Leukocyte Esterase Urine RBC Urine WBC Ur Epithelial Cells Urine Crystals Urine Bacteria Urine Mucus Ur Culture Indicated? Urine Glucose COVID-19 Source SARS-CoV-2 (PCR) Add-On Test Request
[2022-05-18 16:29] LABS: PTT Activated 25.6 sec (21.5-31.9)
[2022-05-18] MEDS: DOXYCYCLINE 100 MG in Normal Saline 100 ML IVPB (16:39)
[2022-05-18 17:51] LABS: Bilirubin Negative (Negative); Blood Moderate (Negative); Clarity Cloudy (Clear); Glucose Negative (Negative); Ketones Negative (Negative); Leukocyte Esterase Large (Negative); Nitrite Negative (Negative); Urobilinogen 0.2 mg/dL (Up to 0.2); pH 7.5 (5-8)
[2022-05-18 18:00] LABS: Bacteria Moderate HPF (Negative); Crystals Negative HPF (Negative); Epithelial Cells Rare HPF (Negative); RBC 20-50 HPF (0-2); WBC >50 HPF (0-5)
[2022-05-18 18:01] LABS: C & S Indicated? Yes; Casts Negative LPF (Negative); Mucus Moderate (Negative)
[2022-05-18] MEDS: Lactated Ringers 1,000 ML 100 ML IV (21:33)
[2022-05-18] MEDS: ACETAMINOPHEN 1,000 MG/100 ML BTL 400 MG IVPB (21:33)
[2022-05-18] MEDS: Famotidine 20 MG/2 ML VIAL IVP (21:34)
[2022-05-18] MEDS: LORazepam 0.5 MG TAB PO (21:34)
[2022-05-19] VITALS (144 sets, daily range): BP systolic 85–124; BP diastolic 35–85; PULSE 55–110; RESP 10–37; TEMP 34–36.8; O2SAT 82–95
[2022-05-19] MEDS: CEFEPIME 2 GM in Normal Saline 100 ML IVPB ×3 (00:05→23:55)
[2022-05-19] MEDS: Normal Saline Flush 10 ML SYR IVP ×4 (00:05→19:41)
[2022-05-19] MEDS: Normal Saline 500 ML 30 ML IV (00:16)
[2022-05-19] MEDS: DOXYCYCLINE 100 MG in Normal Saline 100 ML IVPB ×2 (01:39→13:58)
[2022-05-19] MEDS: Lactated Ringers 1,000 ML 100 ML IV ×2 (01:48→10:51)
[2022-05-19 05:07] LABS: PTT Activated 30.8 sec (21.5-31.9)
--- NOTE | 2022-05-19 08:00 | DI.RAD_ITS ---
Exam(s) XR ABDOMEN FLAT PLATE EXAM: 2D digital imaging was performed. CLINICAL HISTORY: colitis. COMPARISON: CT CT CHEST/ABD/PEL W from 05/18/2022 TECHNIQUE: Supine views of the abdomen performed. FINDINGS: BOWEL GAS PATTERN: No evidence of obstruction. Scattered air in colon. OSSEOUS STRUCTURES: Normal for age. OTHER FINDINGS: Aortic and left iliac stents. IMPRESSION: 1. Nonobstructive bowel gas pattern. DATA REPOSITORY: RADIATION DOSE DELIVERED:
[2022-05-19] MEDS: Tiotropium Bromide-Respimat 10 PUFF INH IH (08:37)
[2022-05-19] MEDS: Mometasone 220 MCG 14 DOSE INHALER 1 PUFF IH (08:38)
--- NOTE | 2022-05-19 09:11 | PDOC.CMPRO ---
- If Service Date Differs Date of service: 05/19/22 Time of Service: 09:11 Care Management Progress Note S/O: Deb is being closely monitored in the ICU. She is on IV antibiotics and high flow nasal cannula 40L/min, with O2 saturation in the low 90's. Per RN, she has had family visiting throughout the day, although she was resting without any family present when CM visited the ICU. Per report, she is slowly improving with medical management, as she has elected not to move forward with surgery. CM will continue to follow. A: Deb is an 81 year old woman admitted on 05/15/22 with respiratory failure P:Anticipate Deb will be discharged home when medically cleared by provider with New [facility] services (if indicated). She will follow up with community providers and discharge plan of care as prescribed. Family will drive her home when ready. Pt declines referral to [facility]. CM will continue to follow.
--- NOTE | 2022-05-19 09:14 | W.PM.PROGNOT ---
Date of Service Date of service: 05/19/22 Time of Service: 09:14 Assessment and Plan Assessment and plan (1) Acute and chronic respiratory failure with hypoxia: Status: Acute Assessment and plan: Chronic respiratory failure secondary to underlying COPD. Acute hypoxic respiratory failure secondary to RSV pneumonia and possible superimposed bacterial pneumonia. Continue cefepime vancomycin and doxycycline. Continue supportive care with high flow nasal cannula. Check results of MRSA screen, sputum cultures, blood cultures, urine Legionella and urine strep antigens. Patient remains DNR/DNI. Encourage cough and deep breathing with I-S and acapella. We will add chest physiotherapy. Patient was started on prednisone and in light of her acute condition and n.p.o. status we will switch to hydrocortisone and give her stress dose levels for 48 to 72 hours and then taper from there. Critical care time spent interviewing and examining the patient, reviewing studies, discussing case with patient's nurse and consulting physicians was 40 minutes (2) RSV (respiratory syncytial virus infection): Status: Acute Assessment and plan: As above (3) COPD (chronic obstructive pulmonary disease): Status: Chronic Assessment and plan: High flow oxygen along with supportive care with aerosolized bronchodilators. Continue Spiriva and Symbicort to her regimen and use as needed albuterol aerosols. (4) Gaseous distention of intestine determined by X-ray: Status: Acute Assessment and plan: Surgical consultation was obtained with Dr. Dorman yesterday. Patient has indicated she does not want further surgeries. Patient is on n.p.o. status. She did have a bowel movement yesterday. Her belly is softer no longer distended and nontender. Unclear whether this was an enterocolitis versus exacerbation of her inflammatory bowel disease versus acute bowel ischemia nevertheless she is nontender. Consider advancing to clear liquids if she has no further pain. Continue heparinization for another 24 hours and then once she is to take p.o. we can switch her back to her apixaban. (5) Ischemic bowel disease: Assessment and plan: As above. 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 We will switch her aspirin to rectal suppository continue heparinization for another 24 to 48 hours and switch her over to apixaban if she is able to take p.o. meds. (6) H/O inflammatory bowel disease: Status: Chronic (7) Chronic heart failure with preserved ejection fraction (HFpEF): Status: Acute Assessment and plan: Repeat echocardiogram yesterday shows concentric LVH with an LVEF 55% no wall motion abnormalities. Normal RV size and function. Severe left atrial dilatation moderately dilated right atrium. Sclerotic aortic valve without stenosis or regurgitation MAC with mild mitral vegetation TR with mild regurgitation. Clinically she does not appear to be in failure and requires continued IV fluid support. She is maintaining adequate urine output at least 50 mL/h. (8) Atrial fibrillation: Status: Chronic Qualifiers: Atrial fibrillation type: unspecified Qualified Code(s): I48.91 - Unspecified atrial fibrillation (9) Coronary disease: Status: Chronic Assessment and plan: No symptoms of chest pain. Troponin was negative yesterday. I will add on troponin to her labs this morning. (10) UTI (urinary tract infection): Status: Acute Assessment and plan: Awaiting urine cultures. Continue with cefepime antibiotics for her pneumonia which should also cover UTIs. (11) DNR (do not resuscitate): Status: Acute Assessment and plan: Patient is DNR/DNI status and does not want surgical intervention but short of surgery she wants medical management of her conditions. However she does not want resuscitation or placed on life support. In the event that she has a catastrophic event we will discuss with her and her daughter comfort measures and will enlist the support of her primary care provider Dr. Salinas Subjective Subjective Interval history since last seen: Patient denies any nausea or vomiting or abdominal pain. When asked about any dyspnea she says its not too bad this morning. However she remains on high flow nasal cannula at 40 L/min with O2 saturation in the low 90s. Last BM was yesterday. She is currently n.p.o. and receiving IV fluids as well as antibiotics and we will convert her digoxin IV and change her prednisone to hydrocortisone. Patient is being treated for acute on chronic respiratory failure secondary to RSV pneumonia as well as a possible concomitant bacterial pneumonia. The nausea and vomiting abdominal pain are felt to either be secondary to an enterocolitis or possibly an ischemic colitis. She has extensive history of vasculopathy with previous AAA with stenting as well as stenting of her mesenteric and celiac arteries. Exam Narrative Exam Narrative: Deb is sleepy but easily awakened opens her eyes answers me appropriately she is very hard of hearing but denies any pain or dyspnea. She states she is just tired. When asked if she slept well last night she feels that she did sleep last night but just feels fatigued and tired. Yesterday when I reevaluate her in the afternoon with her primary care provider Dr. Salinas we met with the patient and her daughter at that time the patient did firmly indicate that she did not want any further surgery in the event that she has an acute surgical abdomen. Examination she does not appear to be in acute respiratory distress not using accessory respiratory muscles. Lungs are clear anteriorly posterior there is just some fine basilar rales and diminished breath sounds with no rhonchi or wheezing. Heart is irregularly irregular at a controlled rate (on telemetry her rate is 85 in atrial fibrillation with a bundle branch block) Abdomen is soft nondistended with a few scattered hypoactive bowel sounds abdomen is nontender to palpation Extremities without peripheral cyanosis or edema extremities are warm nondiaphoretic Neuro exam she has no facial asymmetry she is very hard of hearing she has normal extraocular motion and intact normal movement of her palate and moves all 4 extremities. She does have generalized weakness however. Objective Last Vital Signs Temp 36.4 C L 05/19/22 06:00 Pulse 88 05/19/22 06:16 Resp 22 05/19/22 06:20 BP 99/46 L 05/19/22 06:16 Pulse Ox 90 L 05/19/22 06:20 Laboratory Results - last 24 hr 05/18/22 05/18/22 05/18/22 10:30 10:30 10:45 WBC RBC Hgb Hct MCV MCH MCHC RDW Plt Count MPV Immature Gran % Neutrophils % Lymphocytes % Monocytes % Eosinophils % Basophils % Nucleated RBC % Absolute Neutrophils Absolute Lymphocytes Absolute Monocytes Absolute Eosinophils Absolute Basophils APTT ABG Sample Site ABG pH ABG pCO2 ABG pO2 ABG HCO3 ABG Total CO2 ABG O2 Saturation ABG Base Excess VBG Lactate 2.7 H* Oxygen Liter Flow FiO2 Sodium Potassium Chloride Carbon Dioxide Anion Gap BUN Creatinine Est GFR (CKD-EPI 2020) Glucose Calcium Procalcitonin Urine Color Yellow Urine Clarity Sl Cloudy Urine pH 7.0 Ur Specific Harrison 1.020 Urine Protein >=300 H Urine Ketones Negative Urine Blood Moderate H Urine Nitrite Negative Urine Bilirubin Negative Urine Urobilinogen 0.2 Ur Leukocyte Esterase Large H Urine RBC Not Applicable Urine WBC >50 H Ur Epithelial Cells Not Applicable Urine Crystals Not Applicable Urine Bacteria Not Applicable Urine Casts Urine Mucus Not Applicable Ur Culture Indicated? Yes Urine Glucose Negative COVID-19 Source Nasal/Nares SARS-CoV-2 (PCR) Negative 05/18/22 05/18/22 05/18/22 10:45 10:58 15:40 WBC RBC Hgb Hct MCV MCH MCHC RDW Plt Count MPV Immature Gran % Neutrophils % Lymphocytes % Monocytes % Eosinophils % Basophils % Nucleated RBC % Absolute Neutrophils Absolute Lymphocytes Absolute Monocytes Absolute Eosinophils Absolute Basophils APTT ABG Sample Site Right Radial ABG pH 7.43 ABG pCO2 52 H ABG pO2 58 L ABG HCO3 34 H ABG Total CO2 30 H ABG O2 Saturation 90 L ABG Base Excess 10 H VBG Lactate Oxygen Liter Flow 40 FiO2 42 Sodium 128 L Potassium 4.1 Chloride 90 L Carbon Dioxide 35.0 H Anion Gap 3.0 BUN 20 H Creatinine 1.0 Est GFR (CKD-EPI 2020) 56.25 Glucose 144 H Calcium 8.7 Procalcitonin < 0.1 Urine Color Urine Clarity Urine pH Ur Specific Harrison Urine Protein Urine Ketones Urine Blood Urine Nitrite Urine Bilirubin Urine Urobilinogen Ur Leukocyte Esterase Urine RBC Urine WBC Ur Epithelial Cells Urine Crystals Urine Bacteria Urine Casts Urine Mucus Ur Culture Indicated? Urine Glucose COVID-19 Source SARS-CoV-2 (PCR) 05/18/22 05/18/22 05/18/22 15:40 15:40 16:09 WBC 16.38 H RBC 4.89 Hgb 14.8 Hct 44.2 MCV 90 MCH 30.3 MCHC 33.5 RDW 13.9 Plt Count 200 MPV 10.5 Immature Gran % 0.7 Neutrophils % 91.0 Lymphocytes % 4.7 Monocytes % 3.5 Eosinophils % 0.0 Basophils % 0.1 Nucleated RBC % 0.0 Absolute Neutrophils 14.91 H Absolute Lymphocytes 0.77 L Absolute Monocytes 0.57 Absolute Eosinophils 0.00 Absolute Basophils 0.02 APTT 25.6 ABG Sample Site ABG pH ABG pCO2 ABG pO2 ABG HCO3 ABG Total CO2 ABG O2 Saturation ABG Base Excess VBG Lactate 1.4 Oxygen Liter Flow FiO2 Sodium Potassium Chloride Carbon Dioxide Anion Gap BUN Creatinine Est GFR (CKD-EPI 2020) Glucose Calcium Procalcitonin Urine Color Urine Clarity Urine pH Ur Specific Harrison Urine Protein Urine Ketones Urine Blood Urine Nitrite Urine Bilirubin Urine Urobilinogen Ur Leukocyte Esterase Urine RBC Urine WBC Ur Epithelial Cells Urine Crystals Urine Bacteria Urine Casts Urine Mucus Ur Culture Indicated? Urine Glucose COVID-19 Source SARS-CoV-2 (PCR) 05/18/22 05/19/22 17:40 04:00 WBC RBC Hgb Hct MCV MCH MCHC RDW Plt Count MPV Immature Gran % Neutrophils % Lymphocytes % Monocytes % Eosinophils % Basophils % Nucleated RBC % Absolute Neutrophils Absolute Lymphocytes Absolute Monocytes Absolute Eosinophils Absolute Basophils APTT 30.8 ABG Sample Site ABG pH ABG pCO2 ABG pO2 ABG HCO3 ABG Total CO2 ABG O2 Saturation ABG Base Excess VBG Lactate Oxygen Liter Flow FiO2 Sodium Potassium Chloride Carbon Dioxide Anion Gap BUN Creatinine Est GFR (CKD-EPI 2020) Glucose Calcium Procalcitonin Urine Color Yellow Urine Clarity Cloudy Urine pH 7.5 Ur Specific Harrison 1.010 Urine Protein Trace H Urine Ketones Negative Urine Blood Moderate H Urine Nitrite Negative Urine Bilirubin Negative Urine Urobilinogen 0.2 Ur Leukocyte Esterase Large H Urine RBC 20-50 H Urine WBC >50 H Ur Epithelial Cells Rare Urine Crystals Negative Urine Bacteria Moderate Urine Casts Negative Urine Mucus Moderate Ur Culture Indicated? Yes Urine Glucose Negative COVID-19 Source SARS-CoV-2 (PCR) Time Spent with Patient Time Spent with Patient: 35-49 minutes Time was spent: preparing to see the patient(eg.review tests), obtaining and/or reviewing separately otained hiistory, ordering medications,tests, procedures, indepentently interpreting results, counseling the patient and care coordination
[2022-05-19] MEDS: Hydrocortisone SOD SUC. 100 MG VIAL 50 MG IVP ×2 (09:47→18:03)
[2022-05-19] MEDS: Digoxin 0.5 MG/2 ML AMP 0.125 MG IVP (10:12)
[2022-05-19] MEDS: Aspirin 300 MG SUPP PR (10:13)
[2022-05-19 11:36] LABS: Lactate 0.6 mmol/L (0.6-1.4)
[2022-05-19 11:36] LABS: Lab Add On Test DONE
[2022-05-19 11:38] LABS: Abs Immature Grans 0.04 10^3/uL (0.0-0.06); Absolute Basophil Count 0.02 10^3/uL (0.0-0.2); Absolute Eosinophil Count 0.03 10^3/uL (0.0-0.7); Absolute Lymphocyte Count 1.35 10^3/uL (1.2-3.4); Absolute Monocyte Count 0.85 10^3/uL (0.1-0.8); Absolute Neutrophil Count 6.79 10^3/uL (1.2-6.7); Basophils % 0.2; Eosinophils % 0.3; HGB 13.2 g/dL (11.2-15.7); Immature Grans % 0.4; Lymphocytes % 14.9; MCHC 32.2 % (32.0-36.0); MCV 93 fL (80-95); Monocytes % 9.4; Neutrophils % 74.8; Platelet Count 165 10^3/uL (130-400); RDW 13.8 % (11.7-14.6); RDW-SD 47.2 fL; WBC 9.08 10^3/uL (4.4-10.8)
[2022-05-19 11:50] LABS: Anion Gap 3.2 mmol/L (3-11); BUN 15 mg/dL (7-18); C-Reactive Protein 1.52 mg/dL (0.0-0.3); CO2 31.8 mmol/L (21.0-32.0); CREATININE 0.8 mg/dL (0.55-1.02); Calcium 8.2 mg/dL (8.5-10.1); Chloride 100 mmol/L (98-107); Estimated GFR 73.52 (mL/min/1.73m2); Glucose 92 mg/dL (74-106); Potassium 3.4 mmol/L (3.5-5.1); Sodium 135 mmol/L (136-145)
[2022-05-19] MEDS: Budesonide/Formoterol 160/4.5 6 GM 60 PUFF INH IH ×2 (12:02→19:47)
[2022-05-19 12:09] LABS: PTT Activated 54.6 sec (21.5-31.9)
[2022-05-19] MEDS: VANCOMYCIN/WATER (PEG) 1.25 GM/250 ML BAG IV (15:07)
[2022-05-19 15:58] LABS: Troponin I < 50 ng/L (<or=60)
[2022-05-19 17:48] LABS: PTT Activated 48.3 sec (21.5-31.9)
[2022-05-19 17:52] LABS: Vancomycin, Peak 33.8 ug/mL (25.0-40.0)
[2022-05-19] MEDS: Lactated Ringers 1,000 ML 150 ML IV (18:06)
--- NOTE | 2022-05-19 18:14 | W.POCUS ---
Pocus Exam Limited Thoracic Lung Exam DATE OF EXAM: 05/19/22 TIME OF EXAM: 17:17 PROVIDER THAT PERFORMED THE STUDY: Rosendo Seals IS THIS A REPEAT EXAM DURING THIS ENCOUNTER: No REASON FOR EXAM: Hypoxia, Pneumonia and Shortness ofBreath VISUALIZED STRUCTURES: right anterior, left anterior, right lateral, left lateral, right posterior, left posterior, right subcostal and left subcostal PERTINENT FINDINGS/IMPRESSION: B-lines/left side thoracis location: anterior (inferior B lines), lateral (increased B lines in inferior and posterior lung hamm) and posterior (increasing B lines in both inferior and superior posterior lung hamm), B-lines/right side thoracis location: anterior (inferior), lateral (increasing B lines in the superior as well as inferior hamm) and posterior (increasing B lines in superior and inferior hamm) and Pneumonia (subpleural consolidation) DIFFERENTIAL DIAGNOSES: Compared to limited POCUS exam of the chest from 05/18/22 there is now increasing B lines in the lateral and posterior upper lung hamm as well as the anterior/inferior lung hamm along w/ subpleural consolidations. Consider worsening pneumonia versus development of CHF/interstitial edema. Exam complete
[2022-05-19] MEDS: Famotidine 20 MG/2 ML VIAL IVP (19:40)
[2022-05-19] MEDS: LORazepam 0.5 MG TAB PO (21:56)
[2022-05-19 22:03] LABS: Streptococcus Pneumoniae Ag, U Negative (Negative)
[2022-05-19 23:17] LABS: Legionella Ag Detection Urine Negative (Negative)
[2022-05-20] VITALS (71 sets, daily range): BP systolic 92–155; BP diastolic 49–105; PULSE 69–130; RESP 15–43; TEMP 34–37.2; O2SAT 84–97
[2022-05-20 00:47] LABS: PTT Activated 76.3 sec (21.5-31.9)
[2022-05-20] MEDS: DOXYCYCLINE 100 MG in Normal Saline 100 ML IVPB ×2 (01:17→14:00)
[2022-05-20] MEDS: Hydrocortisone SOD SUC. 100 MG VIAL 50 MG IVP ×3 (01:17→19:26)
[2022-05-20 07:03] LABS: Abs Immature Grans 0.05 10^3/uL (0.0-0.06); Absolute Basophil Count 0.02 10^3/uL (0.0-0.2); Absolute Eosinophil Count 0.02 10^3/uL (0.0-0.7); Absolute Lymphocyte Count 0.96 10^3/uL (1.2-3.4); Absolute Monocyte Count 0.39 10^3/uL (0.1-0.8); Absolute Neutrophil Count 6.11 10^3/uL (1.2-6.7); Basophils % 0.3; Eosinophils % 0.3; HCT 41.1 % (36.0-46.0); HGB 13.4 g/dL (11.2-15.7); Immature Grans % 0.7; Lymphocytes % 12.7; MCH 29.9 pg (27.0-33.0); MCHC 32.6 % (32.0-36.0); MCV 92 fL (80-95); MPV 9.7 fL (8.0-11.0); Monocytes % 5.2; Neutrophils % 80.8; Platelet Count 176 10^3/uL (130-400); RBC 4.48 10^6/uL (3.93-5.22); RDW 13.3 % (11.7-14.6); RDW-SD 45.5 fL; WBC 7.55 10^3/uL (4.4-10.8)
[2022-05-20 07:13] LABS: Anion Gap 5.8 mmol/L (3-11); BUN 14 mg/dL (7-18); C-Reactive Protein 2.34 mg/dL (0.0-0.3); CO2 30.2 mmol/L (21.0-32.0); CREATININE 0.7 mg/dL (0.55-1.02); Calcium 7.8 mg/dL (8.5-10.1); Chloride 99 mmol/L (98-107); Glucose 86 mg/dL (74-106); Potassium 3.3 mmol/L (3.5-5.1); Sodium 135 mmol/L (136-145)
[2022-05-20 07:22] LABS: PTT Activated 69.3 sec (21.5-31.9)
[2022-05-20] MEDS: Budesonide/Formoterol 160/4.5 6 GM 60 PUFF INH IH ×2 (07:48→19:48)
[2022-05-20] MEDS: Tiotropium Bromide-Respimat 10 PUFF INH IH (07:48)
[2022-05-20 07:51] LABS: ALT 14 U/L (14-59); AST 14 U/L (15-37); Albumin 2.6 g/dL (3.4-5.0); Alkaline Phosphatase 59 U/L (46-116); Bilirubin, Direct 0.2 mg/dL (0.0-0.2); Bilirubin, Total 0.7 mg/dL (0.2-1.0); Total Protein 5.1 g/dL (6.4-8.2)
[2022-05-20] MEDS: Apixaban 5 MG TAB PO ×2 (09:55→19:27)
[2022-05-20] MEDS: Aspirin E.C. 81 MG TABEC PO (09:55)
[2022-05-20] MEDS: Normal Saline Flush 10 ML SYR IVP ×3 (09:58→22:05)
--- NOTE | 2022-05-20 10:34 | CMPROGNOTE_ITS ---
- If Service Date Differs Date of service: 05/20/22 Time of Service: 10:34 Care Management Progress Note S/O: Deb was sitting up in a chair in the ICU when CM met with her. She was cooperative and agreeable to conversation . She stated that her breathing is much improved and she is feeling better. Deb informed CM that her plan would still be to discharge home. She lives with her daughter who assists with her care. Deb had several visitors today and, per nursing, has a very supportive family. Deb has been on high flow nasal O2 but was able to be transitioned to nasal cannula at 2L/min and maintain her oxygen saturation levels in the mid- nineties. A: Deb is an 81 year old woman admitted on 05/15/22 with respiratory failure P:Anticipate Deb will be discharged home when medically cleared by provider with [facility] services. She will follow up with community providers and discharge plan of care as prescribed. Family will drive her home when ready. CNM will follow and assess for and support discharge planning concerns.
[2022-05-20] MEDS: Digoxin 0.125 MG TAB PO (10:37)
[2022-05-20] MEDS: Potassium Chloride 20 MEQ TABCR PO (10:37)
--- NOTE | 2022-05-20 11:19 | W.POCUS ---
Pocus Exam Limited Cardiac Exam DATE OF EXAM: 05/19/22 TIME OF EXAM: 17:27 PROVIDER THAT PERFORMED THE STUDY: Rosendo Seals IS THIS A REPEAT EXAM DURING THIS ENCOUNTER: no REASON FOR EXAM: Congestive heart failure, Dyspnea and Hypoxia VISUALIZED STRUCTURES: four chambers, LVOT, aortic valve, mitral valve, Interventricular septum and IVC VIEW OBTAINED: Apical 4-Chamber, Parasternal long-axis, Parasternal short-axis and Subxiphoid PERTINENT FINDINGS/IMPRESSION: IVC inspiratory collapsability and Plethoric IVC; No LV dysfunction, No pericardial effusion, No RV dilation and No RV dysfunction DIFFERENTIAL DIAGNOSES: Compared to limited cardiac POCUS exam from 05/18/22, patient's IVC is now dilated at 2.34 cm but still has 73% inspiratory collapsability suggesting an increase in her RAP. However, her VTI (SV) had only 6% increase w/ passive leg raising. When put into context of her lung POCUS findings this suggests that the patient is no longer fluid responsive and may approaching acute CHF. Her LV and RV function remains preserved w/ no gross wall motion abnormalities however a 17 segment analysis of her LV was not performed and therefore subtle wall motion abnormalities can not be excluded. Exam complete
[2022-05-20] MEDS: CEFEPIME 2 GM in Normal Saline 100 ML IVPB (11:48)
[2022-05-20] MEDS: LORazepam 0.5 MG TAB PO ×3 (11:49→23:28)
[2022-05-20] MEDS: Normal Saline 500 ML 30 ML IV (11:50)
[2022-05-20] MEDS: VANCOMYCIN/WATER (PEG) 1.25 GM/250 ML BAG IV (14:18)
--- NOTE | 2022-05-20 15:19 | W.PM.PROGNOT ---
Date of Service Date of service: 05/20/22 Time of Service: 15:22 Assessment and Plan Assessment and plan (1) Acute and chronic respiratory failure with hypoxia: Status: Acute Assessment and plan: Chronic respiratory failure secondary to underlying COPD. Acute hypoxic respiratory failure secondary to RSV pneumonia and possible superimposed bacterial pneumonia. Continue cefepime and doxycycline. Vancomycin d/c'd; MRSA screen negative. Continue supportive care; attempt to wean to regular NC. Blood cultures negative to date. NOrmal shauna on sputum culture. Urine Legionella and urine strep antigens are negative. Encourage cough and deep breathing with I-S and acapella. Cont. chest physiotherapy. She has been on stress dose of IV hydrocortisone. NOw on a oral diet so will stop hydrocortisone in the AM and start on prednisone 30mg daily. (2) RSV (respiratory syncytial virus infection): Status: Acute Assessment and plan: As above (3) COPD (chronic obstructive pulmonary disease): Status: Chronic Assessment and plan: High flow oxygen along with supportive care with aerosolized bronchodilators. Taper O2. Continue Spiriva and Symbicort to her regimen and use as needed albuterol aerosols. (4) Gaseous distention of intestine determined by X-ray: Status: Acute Assessment and plan: Surgical consultation was obtained with Dr. Dorman. Patient has indicated she does not want further surgeries. Patient is on n.p.o. status. She did have a bowel movement yesterday. Unclear whether this was an enterocolitis versus exacerbation of her inflammatory bowel disease versus acute bowel ischemia nevertheless she continues to be nontender. Advancing diet as tolerated. (5) Ischemic bowel disease: Assessment and plan: As above. 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 We will switch her aspirin to rectal suppository continue heparinization for another 24 to 48 hours and switch her over to apixaban if she is able to take p.o. meds. (6) H/O inflammatory bowel disease: Status: Chronic Assessment and plan: As above. (7) Chronic heart failure with preserved ejection fraction (HFpEF): Status: Acute Assessment and plan: Repeat echocardiogram shows concentric LVH with an LVEF 55% no wall motion abnormalities. Normal RV size and function. Severe left atrial dilatation moderately dilated right atrium. Sclerotic aortic valve without stenosis or regurgitation MAC with mild mitral vegetation TR with mild regurgitation. Clinically does not appear to be in failure. (8) Atrial fibrillation: Status: Chronic Assessment and plan: Cont digoxin. Level of 0.96; normal. No longer NPO; restart Eliquis. Monitor. Qualifiers: Atrial fibrillation type: unspecified Qualified Code(s): I48.91 - Unspecified atrial fibrillation (9) Coronary disease: Status: Chronic Assessment and plan: No symptoms of chest pain. Troponin was negative. (10) UTI (urinary tract infection): Status: Acute Assessment and plan: Gram positive shauna in urine cultue. (11) DNR (do not resuscitate): Status: Acute Assessment and plan: Patient is DNR/DNI status and does not want surgical intervention but short of surgery she wants medical management of her conditions. However she does not want resuscitation or placed on life support. In the event that she has a catastrophic event we will discuss with her and her daughter comfort measures and will enlist the support of her primary care provider Dr. Salinas Subjective Subjective Patient reports: no new complaints, blood in stool (Red clot of blood on formed stool this AM. ) and afebrile; denies diarrhea, nausea or vomiting Exam Narrative Exam Narrative: Lying in bed. Alert and interactive today. Lungs are clear anteriorly. High flow nasal cannula in place. Heart is irregularly irregular at a controlled rate (on telemetry; atrial fibrillation with a bundle branch block) Abdomen is soft nondistended with a few scattered hypoactive bowel sounds abdomen is nontender to palpation Extremities without peripheral cyanosis or edema extremities are warm nondiaphoretic Neuro exam she has no facial asymmetry she is very hard of hearing. No focal muscle deficits. Objective Last Vital Signs Temp 37.2 C 05/20/22 12:00 Pulse 77 05/20/22 14:01 Resp 34 H 05/20/22 14:01 BP 123/49 L 05/20/22 14:01 Pulse Ox 95 05/20/22 14:01 Laboratory Results - last 24 hr 05/18/22 05/18/22 05/19/22 10:30 12:35 11:20 WBC RBC Hgb Hct MCV MCH MCHC RDW Plt Count MPV Immature Gran % Neutrophils % Lymphocytes % Monocytes % Eosinophils % Basophils % Nucleated RBC % Absolute Neutrophils Absolute Lymphocytes Absolute Monocytes Absolute Eosinophils Absolute Basophils APTT Sodium Potassium Chloride Carbon Dioxide Anion Gap BUN Creatinine Est GFR (CKD-EPI 2020) Glucose Calcium Total Bilirubin Conjugated Bilirubin AST ALT Alkaline Phosphatase Troponin I < 50 C-Reactive Protein Total Protein Albumin Vancomycin Peak Urine Legionella Ag Negative Ur Strep pneumoniae Ag Negative 05/19/22 05/19/22 05/20/22 17:25 17:25 00:25 WBC RBC Hgb Hct MCV MCH MCHC RDW Plt Count MPV Immature Gran % Neutrophils % Lymphocytes % Monocytes % Eosinophils % Basophils % Nucleated RBC % Absolute Neutrophils Absolute Lymphocytes Absolute Monocytes Absolute Eosinophils Absolute Basophils APTT 48.3 H 76.3 H Sodium Potassium Chloride Carbon Dioxide Anion Gap BUN Creatinine Est GFR (CKD-EPI 2020) Glucose Calcium Total Bilirubin Conjugated Bilirubin AST ALT Alkaline Phosphatase Troponin I C-Reactive Protein Total Protein Albumin Vancomycin Peak 33.8 Urine Legionella Ag Ur Strep pneumoniae Ag 05/20/22 05/20/22 05/20/22 06:50 06:50 06:50 WBC 7.55 RBC 4.48 Hgb 13.4 Hct 41.1 MCV 92 MCH 29.9 MCHC 32.6 RDW 13.3 Plt Count 176 MPV 9.7 Immature Gran % 0.7 Neutrophils % 80.8 Lymphocytes % 12.7 Monocytes % 5.2 Eosinophils % 0.3 Basophils % 0.3 Nucleated RBC % 0.0 Absolute Neutrophils 6.11 Absolute Lymphocytes 0.96 L Absolute Monocytes 0.39 Absolute Eosinophils 0.02 Absolute Basophils 0.02 APTT Sodium 135 L Potassium 3.3 L Chloride 99 Carbon Dioxide 30.2 Anion Gap 5.8 BUN 14 Creatinine 0.7 Est GFR (CKD-EPI 2020) 86.30 Glucose 86 Calcium 7.8 L Total Bilirubin 0.7 Conjugated Bilirubin 0.2 AST 14 L ALT 14 Alkaline Phosphatase 59 Troponin I C-Reactive Protein 2.34 H Total Protein 5.1 L Albumin 2.6 L Vancomycin Peak Urine Legionella Ag Ur Strep pneumoniae Ag 05/20/22 06:50 WBC RBC Hgb Hct MCV MCH MCHC RDW Plt Count MPV Immature Gran % Neutrophils % Lymphocytes % Monocytes % Eosinophils % Basophils % Nucleated RBC % Absolute Neutrophils Absolute Lymphocytes Absolute Monocytes Absolute Eosinophils Absolute Basophils APTT 69.3 H Sodium Potassium Chloride Carbon Dioxide Anion Gap BUN Creatinine Est GFR (CKD-EPI 2020) Glucose Calcium Total Bilirubin Conjugated Bilirubin AST ALT Alkaline Phosphatase Troponin I C-Reactive Protein Total Protein Albumin Vancomycin Peak Urine Legionella Ag Ur Strep pneumoniae Ag Time Spent with Patient Time Spent with Patient: 25-34 minutes Time was spent: preparing to see the patient(eg.review tests), ordering medications,tests, procedures and indepentently interpreting results
[2022-05-20] MEDS: Famotidine 20 MG/2 ML VIAL IVP (22:05)
[2022-05-21] VITALS (48 sets, daily range): BP systolic 133–165; BP diastolic 65–77; PULSE 83–131; RESP 15–33; TEMP 36–37.5; O2SAT 85–96
[2022-05-21] MEDS: CEFEPIME 2 GM in Normal Saline 100 ML IVPB (00:05)
[2022-05-21] MEDS: Hydrocortisone SOD SUC. 100 MG VIAL 50 MG IVP (01:40)
[2022-05-21] MEDS: Haloperidol 5 MG/ML VIAL 1 MG IV (01:40)
--- NOTE | 2022-05-21 01:44 | NUR.NOTE ---
0100: Pt has been restless for most of the evening thus far. Pt up to bed side commode multiple times with very little urine output. Pt has been mostly incontinent throughout the night. Last time pt got up to bed side commode pt refused to get back into bed. Pt took off oxygen, tele, SPO2 monitoring and blood pressure cuff. Pt was attempting to take out IVs but was unsuccessful. Pt become combative and started pushing nurse to get out the door. Pt then sat in the chair and attempted multiple times to get up. Pt was given an Ativan at 23:28 with little relief. Hospitalist was notified at 0050. Pt states, I want to go home reassurance was given. Nurse told pt she was here to receive help r/t infection. Urine was sent to lab during this time as well. 0110: Hospitalist ordered 1mg Haldol which was given. Will reassess pt, pt is currently with the [facility] in a 1:1.
[2022-05-21] MEDS: LORazepam 0.5 MG TAB PO ×3 (02:47→16:04)
[2022-05-21] MEDS: DOXYCYCLINE 100 MG in Normal Saline 100 ML IVPB (03:05)
[2022-05-21 03:35] LABS: Bilirubin Negative (Negative); Blood Trace-intact (Negative); Clarity Clear (Clear); Glucose Negative (Negative); Ketones Negative (Negative); Leukocyte Esterase Negative (Negative); Nitrite Negative (Negative); Urobilinogen 0.2 mg/dL (Up to 0.2)
[2022-05-21 03:40] LABS: Bacteria Rare HPF (Negative); C & S Indicated? No; Casts Negative LPF (Negative); Crystals Negative HPF (Negative); Epithelial Cells Few HPF (Negative); Mucus Negative (Negative); RBC 0-2 HPF (0-2); WBC Negative HPF (0-5)
[2022-05-21] MEDS: Budesonide/Formoterol 160/4.5 6 GM 60 PUFF INH IH ×2 (07:49→19:40)
[2022-05-21] MEDS: Tiotropium Bromide-Respimat 10 PUFF INH IH (07:50)
[2022-05-21 08:34] LABS: Anion Gap 5.7 mmol/L (3-11); BUN 11 mg/dL (7-18); CO2 31.3 mmol/L (21.0-32.0); CREATININE 0.7 mg/dL (0.55-1.02); Calcium 8.3 mg/dL (8.5-10.1); Chloride 99 mmol/L (98-107); Glucose 91 mg/dL (74-106); Sodium 136 mmol/L (136-145)
[2022-05-21] MEDS: predniSONE 10 MG TAB 30 MG PO (08:59)
[2022-05-21] MEDS: Potassium Chloride 20 MEQ TABCR PO ×3 (08:59→19:40)
[2022-05-21] MEDS: Aspirin E.C. 81 MG TABEC PO (08:59)
[2022-05-21] MEDS: Digoxin 0.125 MG TAB PO (09:00)
[2022-05-21] MEDS: Sertraline 50 MG TAB PO (09:00)
[2022-05-21] MEDS: Apixaban 5 MG TAB PO ×2 (09:00→19:40)
--- NOTE | 2022-05-21 09:43 | PDOC.CMPRO ---
- If Service Date Differs Date of service: 05/21/22 Time of Service: 09:44 Care Management Progress Note S/O: Deb was sitting up in a chair when CM met with her. She stated that she is feeling better. She has done well with 2L/min of oxygen and is saturating in the mid nineties. She had a PT evaluation today and their recommendation is for Deb to go to rehab. CM contacted her daughter Mimi to discuss the recommendation. Mimi shared that Deb has extreme anxiety and does not do well with strangers or in new situations. She stated that she feels Deb would do better ast home. While she does not currently have home oxygen, she has had it in the past. She informed CM that they would not have any concerns if it is again deemed necessary. Per provider, Deb will likely be ready for discharge by Tuesday. Mimi's only concern is that there are 6 steps to enter their home and she is unsure if Deb will be able to manage them. CM assured Mimi that a lift assist would be arranged if necessary. A: Deb is an 81 year old woman admitted on 05/15/22 with respiratory failure P:Anticipate Deb will be discharged home when medically cleared by provider with [facility] services. She will follow up with community providers and discharge plan of care and transport with family. CM will continue to support Deb and her discharge planning needs.
[2022-05-21] MEDS: Cefpodoxime 200 MG TAB PO ×2 (09:59→19:40)
--- NOTE | 2022-05-21 11:33 | PT.INIE ---
Date of service: 05/21/22 Time of Service: 09:14 PT Notes Visit Reasons: Hypoxic Resp Failure,CHF,Viral Illness Physical Therapy Inpatient Initial Evaluation Date: 05/21/2022 Referring Doctor: Sekou Guerrero MD PT Orders: PT CONSULT: Eval/treat Precautions: Fall. Standard. Activity as tolerated. Patient Profile/Admitting Diagnosis: Deb Her is an 81-year-old female with diagnosis of acute on chronic respiratory failure with hypoxia, RSV, COPD, gaseous distention, ischemic bowel disease, inflammatory bowel disease, chronic heart failure with preserved EF, AF, CAD, and UTI. PMHX: All Active Problems?(Updated 05/15/22 @ 17:41 by Ella Koenig NP) Hypokalemia (Acute) RSV (respiratory syncytial virus infection) (Acute) Respiratory failure with hypoxia (Acute) Conjunctivitis (Acute) Right hip pain (Acute) Cognitive change (Acute) RUQ abdominal pain (Acute) Weight loss, abnormal (Acute ~06/11/21) 30# in last yr Aminah onychomycosis (Acute) Bradycardia (Acute) Encounter for monitoring diuretic therapy (Acute) Congestive heart failure (Chronic) DNR (do not resuscitate) (Acute) Physician orders for life-sustaining treatment (POLST) form indicates patient wish for [id number] status (Acute) Discharge planning issues (Acute) DVT prophylaxis (Acute) Pulmonary hypertension (Acute) Acute on chronic diastolic (congestive) heart failure (Acute) Hypoxia (Acute) ST segment changes on electrocardiogram (Acute) Atrial fibrillation (Chronic) Tachycardia (Acute) Weight loss (Chronic 04/02/14) Urinary frequency (Chronic 08/21/15) Tubular adenoma of colon (Chronic 03/04/14) Shortness of breath (Chronic 10/14/16) 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 Positive neutrophil AB mostlikely indicating ulcerative colitis Increased body mass index (Chronic) Hyperlipidemia (Chronic) Diarrhea (Chronic 11/19/14) Complete edentulism, unspecified (Chronic) Atherosclerosis (Chronic) Anxiety (Chronic 07/25/17) Coronary disease (Chronic) COPD (chronic obstructive pulmonary disease) (Chronic) Hypertension (Chronic) SCHAEFFER (nonalcoholic steatohepatitis) (Chronic) H/O inflammatory bowel disease (Chronic) SVT (supraventricular tachycardia) (Chronic 09/15/14) Medical History?(Updated 05/15/22 @ 17:41 by Ella Koenig NP) Abdominal aortic aneurysm (05/31/12) 4.4 cm 07/20 s/p repair 2013 Arm skin lesion, left (12/09/15) Atherosclerosis Bruit Bruit of left carotid artery mild-mod. plaque per U/S COPD (chronic obstructive pulmonary disease) with emphysema CVD (cardiovascular disease) Dependence on supplemental oxygen Depression a.? with psychotic features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 02/18-09/19, normal metanephrines, normal dexamethasone suppression.Disorder of adrenal gland Disorder of appendix 12/07/12? s/p appendectomy Disorder of appendix (12/07/12) Electrolyte imbalance (09/15/14) a.? hypokalemia b.? hypomagnesemia Elevated LDH Elevated serum lactate dehydrogenase (LDH) Essential (primary) hypertension 06/01/13 Hiatus hernia syndrome [place] [facility] [place] History of tobacco use 100pack/years History of tobacco use Ischemic bowel disease 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) Palliative care patient Palpitations 08/26/14; FREQ PVC BY HOLTER Right pontine CVA [facility]-01/30/16; 8X5 mm Seborrheic keratosis (01/01/16) punch/shave biopsy skin of left arm Seborrheic keratosis (01/01/16) Vascular insufficiency of intestine (06/12/15) Surgical History? Appendectomy Biopsy, Soft Tissue (01/01/16) Punch/shave biospy of skin of left arm, seborrheic keratosis Colectomy (09/18/14) DR. GRAJEDA Hemicolectomy [facility]; 09/15/14; RIGHT History of bilateral ligation of fallopian tubes History of partial colectomy 09/15/14? right hemicolectomy w/ileocolic anastomosis History of partial surgical removal of colon (09/15/14) Ligation of fallopian tube S/P AAA repair S/P tubal ligation. Status post appendectomy Social History/Home Situation: Lives with daughter in a private home. Independent with all mobility ADL performance without an assistive device. Equipment Owned/DME: FWW Subjective: Reports shortness of breath with walking. Denies headache, abdominal pain, and chest pain throughout session. Does not want to go to for short-term rehab as she has a daughter who can help her out at home. Objective: General Observation: Supine in bed. Telemetry monitoring in place. Oxygen supplementation via NC. Mental Status: Alert and oriented as to person, place, time, and purpose. Able to pay attention, focus, and respond appropriately. Pain: Denies Vital Signs: Heart rate increase of 135 bpm with in room short distance ambulation using front wheeled walker but returning back to 105 bpm with 2-3 ,miuntes of seated rest, oxygen saturation ranged from 90% to 94% on 2L/min via NC ROM: Right Upper Extremity: Shoulder Flexion WFL. Shoulder abduction WFL. Elbow flexion WFL. Wrist flexion WFL. Functional opening and closing of hand WFL. Left Upper Extremity: Shoulder Flexion WFL. Shoulder abduction WFL. Elbow flexion WFL. Wrist flexion WFL. Functional opening and closing of hand WFL. Right Lower Extremity: Hip flexion WFL. Hip abduction WFL. Knee flexion WFL. Ankle dorsiflexion WFL. Ankle plantarflexion WFL. Left Lower Extremity: Hip flexion WFL. Hip abduction WFL. Knee flexion WFL. Ankle dorsiflexion WFL. Ankle plantarflexion WFL. Strength: Right Upper Extremity: Shoulder flexors 4-/5. Shoulder abductors 4-/5. Elbow flexors 4-/5. Elbow extensors 4-/5. Golf Teacher strong. Left Upper Extremity: Shoulder flexors 3+/5. Shoulder abductors 3+/5. Elbow flexors 3+/5. Elbow extensors 3+/5. Golf Teacher strong. Right Lower Extremity: Hip flexors 4/5. Hip abductors 4/5. Knee flexors 4/5. Knee extensors 4/5. Ankle dorsiflexors 4/5. Ankle plantarflexors 4/5. Left Lower Extremity: Hip flexors 4-/5. Hip abductors 4-/5. Knee flexors 4-/5. Knee extensors 4-/5. Ankle dorsiflexors 4-/5. Ankle plantarflexors 4-/5. Bed Mobility/Transfers: Supine to sit contact guard assist Sit to stand contact guard assist Stand to sit contact guard assist Bed to bedside commode contact guard assist Bedside commode to bed contact guard assist Bed to reclining contact guard assist Reclining chair to bed contact guard assist Gait: Instructed patient with level surface ambulation of 15 stesp + 15 steps requiring contact guard assist. Valentine decreased. Step height decreased. Step length decreased. Balance: Static Sitting: Good Dynamic Sitting: Good Static Standing: Fair Dynamic Standing: Fair Special Tests: Mobility Limitations Standardized Measure [facility] AM-PAC 6 clicks Basic Mobility Inpatient Short Form: Raw Score: 18 CMS Score: 47% deficit Informed Consent/Education: Patient was instructed in purpose of PT consult and plan of care. Agreeable to proceed with established PT POC to achieve personal goals. Assessment: Low endurance and gets short of breatheasily, needs frequent rests. On palliative care, activity as tolerated only. Still wants to go home with daughter, refusing SNF placement. Patient presents with clinical signs and symptoms consistent with current/admitting diagnoses that have resulted to mobility limitations, gait instability, generalized weakness, and overall ADL decline as demonstrated by the following impairment level findings: 1. Decreased strength to B UE/LE major muscle groups 2. Impaired sitting/standing balance 3. Impaired activity tolerance 4. Shortness of breath Impairments are contributing to the following functional limitations: 1. Decline in bed mobility skills 2. Decline in transfer skills 3. Difficulty with ambulation without assistive device and physical assistance 4. Increased completion time for mobility ADL performance 5. Increased risk for falls Patient is assessed as a 24120 moderate complexity based on the following: History: 81-year-old female with past medical history as indicated above Examination: Demonstrable impairment in strength, balance, and mobility level with underlying impairments and functional limitations as exhibited above as well as deficit score of 47% utilizing the [facility] Mobility Inpatient Short Form Presentation: [id number] moderate complexity Decision Making: complexity Goals: Goals X1 week 1. Supine-Sit independent 2. Sit-Supine independent 3. Sit-Stand independent 4. Stand-Sit independent with FWW 5. Bed-Chair independent with FWW 6. Chair-Bed independent with FWW 7. Independent gait on level surface with use of FWW for at least 100 feet without report of pain nor dyspnea 8. Independent stair negotiation while holding onto B rails for at least 5 steps without report of pain nor dyspnea 9. Independent with home exercise program 10. Good static and dynamic standing balance/tolerance Plan of Care/Treatment Plan: 1-2x/day, 7 days/week x 1 week. Plan of care has been reviewed with the RETURNS SUPERVISOR providing the service under Physical Therapy direction. Initiate Physical Therapy intervention for pain management as needed, strengthening, bed mobility, transfers, gait, stairs, balance training, and use of assistive device. DISCHARGE RECOMMENDATIONS: [] Home with no services [] [] Home with services [specify] [] Home with outpatient PT [] [] SNF for continued rehabilitation [] [] [facility] [] [] SNF versus LTC based on ability to participate and progress [] [X] SNF vs. PT based on patient's progress towards goals TREATMENT CODE/TIME: 47191 x 25 minutes, 82036 x 17 minutes beginning at 9:14 AM. Thank you for the opportunity to participate in the care of this patient. Sayda Yna PT, DPT, CLT [facility] [place], [place]
--- NOTE | 2022-05-21 13:56 | CHAPLAIN ---
Deb was up in the chair finishing her lunch when I visited today. This is the first time I've visited when Deb was awake. She told me that she has a supportive family and they've been calling and keeping in touch. Deb lives with her daughter in [place]. I explained my role and offered support.
--- NOTE | 2022-05-21 14:34 | W.PM.PROGNOT ---
Date of Service Date of service: 05/21/22 Time of Service: 14:34 Assessment and Plan Assessment and plan (1) Acute and chronic respiratory failure with hypoxia: Status: Acute Assessment and plan: Chronic respiratory failure secondary to underlying COPD. Acute hypoxic respiratory failure secondary to RSV pneumonia and possible superimposed bacterial pneumonia. Pt was confused and pulled her IVs out last PM Change to oral antibiotics: cefpodoxime 200mg po BID. Doxycyline changed to oral. Now on 2L NC. Blood cultures negative to date. Normal shauna on sputum culture. Urine Legionella and urine strep antigens are negative. Encourage cough and deep breathing with I-S and acapella. Cont. chest physiotherapy. Now on prednisone 30mg daily and will taper. (2) RSV (respiratory syncytial virus infection): Status: Acute Assessment and plan: As above (3) COPD (chronic obstructive pulmonary disease): Status: Chronic Assessment and plan: Cont Neb txs. Taper O2. Continue Spiriva and Symbicort. (4) Gaseous distention of intestine determined by X-ray: Status: Acute Assessment and plan: Surgical consultation was obtained with Dr. Dorman. Patient has indicated she does not want further surgeries. Patient is on n.p.o. status. She did have a bowel movement yesterday. Unclear whether this was an enterocolitis versus exacerbation of her inflammatory bowel disease versus acute bowel ischemia nevertheless she continues to be nontender. Advancing diet as tolerated. (5) Ischemic bowel disease: Assessment and plan: As above. 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 We will switch her aspirin to rectal suppository continue heparinization for another 24 to 48 hours and switch her over to apixaban if she is able to take p.o. meds. (6) H/O inflammatory bowel disease: Status: Chronic Assessment and plan: As above. (7) Chronic heart failure with preserved ejection fraction (HFpEF): Status: Acute Assessment and plan: Repeat echocardiogram shows concentric LVH with an LVEF 55% no wall motion abnormalities. Normal RV size and function. Severe left atrial dilatation moderately dilated right atrium. Sclerotic aortic valve without stenosis or regurgitation MAC with mild mitral vegetation TR with mild regurgitation. Clinically does not appear to be in failure. (8) Atrial fibrillation: Status: Chronic Assessment and plan: Cont digoxin. Level of 0.96; normal. Cont Eliquis. Add Cardizem for better rate control; titrate as necessary. Monitor. Qualifiers: Atrial fibrillation type: unspecified Qualified Code(s): I48.91 - Unspecified atrial fibrillation (9) Coronary disease: Status: Chronic Assessment and plan: No symptoms of chest pain. Troponin was negative. (10) UTI (urinary tract infection): Status: Acute Assessment and plan: Gram positive shauna in urine cultue. (11) DNR (do not resuscitate): Status: Acute Assessment and plan: Patient is DNR/DNI status and does not want surgical intervention but short of surgery she wants medical management of her conditions. However she does not want resuscitation or placed on life support. In the event that she has a catastrophic event we will discuss with her and her daughter comfort measures and will enlist the support of her primary care provider Dr. Salinas Subjective Subjective Patient reports: no new complaints, feels better, tolerating a regular diet (Appetite is depressed), shortness of breath (Improved) and afebrile; denies nausea or vomiting Exam Narrative Exam Narrative: Lying in bed. Alert and interactive today. Son is present. Lungs are clear anteriorly. NC in place; 2L supplemental O2. Heart is irregularly irregular at a controlled rate (on telemetry; atrial fibrillation with a bundle branch block) Abdomen is soft nondistended with a few scattered hypoactive bowel sounds abdomen is nontender to palpation Extremities without peripheral cyanosis or edema extremities are warm nondiaphoretic Neuro exam she has no facial asymmetry she is very hard of hearing. No focal muscle deficits. Objective Last Vital Signs Temp 36.5 C 05/21/22 12:17 Pulse 114 H 05/21/22 12:16 Resp 23 05/21/22 12:16 BP 133/74 05/21/22 09:44 Pulse Ox 93 05/21/22 13:30 Laboratory Results - last 24 hr 05/21/22 05/21/22 05/21/22 00:50 01:21 08:10 Sodium 136 Potassium 3.0 L Chloride 99 Carbon Dioxide 31.3 Anion Gap 5.7 BUN 11 Creatinine 0.7 Est GFR (CKD-EPI 2020) 86.30 Glucose 91 Calcium 8.3 L Urine Color Yellow Urine Clarity Clear Urine pH 6.0 Ur Specific [place] 1.010 Urine Protein Negative Urine Ketones Negative Urine Blood Trace-intact H Urine Nitrite Negative Urine Bilirubin Negative Urine Urobilinogen 0.2 Ur Leukocyte Esterase Negative Urine RBC 0-2 Urine WBC Negative Ur Epithelial Cells Few Urine Crystals Negative Urine Bacteria Rare Urine Casts Negative Urine Mucus Negative Ur Culture Indicated? No Urine Glucose Negative Haloperidol Cancelled Reduced Haloperidol Cancelled Time Spent with Patient Time Spent with Patient: 25-34 minutes Time was spent: preparing to see the patient(eg.review tests), ordering medications,tests, procedures, indepentently interpreting results and counseling the patient
[2022-05-21] MEDS: dilTIAZem 60 MG TAB PO ×2 (14:58→19:40)
[2022-05-21] MEDS: Divalproex 125 MG TABEC 250 MG PO (17:52)
[2022-05-21] MEDS: Doxycycline Hyclate 100 MG CAP PO (19:40)
--- NOTE | 2022-05-21 20:10 | NUR.NOTE ---
Pt had incontinent bowel movement that was loose and very malodorous. Informed charge nurse and it was suggested that maybe we talk to MD about obtaining order for stool collection to r/o C.diff. No skin issues to bottom. charge nurse also notifying MD that pt has no IV access and has a couple of IV meds on her eMAR. attempting to get meds changed to PO. Bed alarm on, side rails up x3, call light within reach.
[2022-05-21] MEDS: traZODone 100 MG TAB PO (22:34)
[2022-05-22] VITALS (20 sets, daily range): BP systolic 88–156; BP diastolic 42–84; PULSE 60–140; RESP 20–21; TEMP 36.2–37.3; O2SAT 86–95
[2022-05-22 06:30] LABS: Anion Gap 4.2 mmol/L (3-11); BUN 8 mg/dL (7-18); CO2 33.8 mmol/L (21.0-32.0); CREATININE 0.7 mg/dL (0.55-1.02); Calcium 8.4 mg/dL (8.5-10.1); Chloride 101 mmol/L (98-107); Glucose 105 mg/dL (74-106); Magnesium 1.9 mg/dL (1.8-2.4); Potassium 3.4 mmol/L (3.5-5.1); Sodium 139 mmol/L (136-145)
[2022-05-22] MEDS: dilTIAZem 60 MG TAB PO ×3 (08:38→20:59)
[2022-05-22] MEDS: Digoxin 0.125 MG TAB PO (08:38)
[2022-05-22] MEDS: Apixaban 5 MG TAB PO ×2 (08:38→21:00)
[2022-05-22] MEDS: Cefpodoxime 200 MG TAB PO ×2 (08:38→21:00)
[2022-05-22] MEDS: Doxycycline Hyclate 100 MG CAP PO ×2 (08:38→20:59)
[2022-05-22] MEDS: predniSONE 10 MG TAB 30 MG PO (08:39)
[2022-05-22] MEDS: Sertraline 50 MG TAB PO (08:40)
[2022-05-22] MEDS: Potassium Chloride 20 MEQ TABCR PO ×2 (08:40→21:00)
[2022-05-22] MEDS: Normal Saline Flush 10 ML SYR IVP (08:40)
[2022-05-22] MEDS: Aspirin E.C. 81 MG TABEC PO (08:40)
[2022-05-22] MEDS: Metoprolol 5 MG/5 ML VIAL IVP (09:18)
[2022-05-22] MEDS: Budesonide/Formoterol 160/4.5 6 GM 60 PUFF INH IH ×2 (09:23→21:00)
[2022-05-22] MEDS: Tiotropium Bromide-Respimat 10 PUFF INH IH (09:23)
--- NOTE | 2022-05-22 11:00 | PT.INTREAT ---
Date of service: 05/22/22 Time of Service: 10:33 PT Notes Visit Reasons: Hypoxic Resp Failure,CHF,Viral Illness Inpatient Physical Therapy Treatment Note [facility] Date: 05/22/2022 PRECAUTIONS: Fall. Standard. Activity as tolerated. SUBJECTIVE: Stated she was agreeable to doing exercises in bed. Patient's daughter, Mimi, indicated that she will need to be able to walk up / down 5 steps to return home. OBJECTIVE: Discussed performance of bed exercises once she had recovered from getting back to bed. Patient was in agreement with this plan. Did indicate to nursing staff that I would like to help ambulate back to chair prior to lunch if willing to sit up again. PAIN: No complaints of pain offered. BED MOBILITY/TRANSFERS Did require mod assist of 2 with pulling patient up in bed. She did assist with bending knees and attempting to push herself up to head of bed. GAIT Prior to lunch patient did have to use commode, so transferred with nursing to commode. Post use of commode she did ambulate with myself in room, commode to door and door to recliner. Assistive Device: FWW Weight Bearing: Full Distance: 13 ft and 10 ft, short seated rest in chair x 2-3 minutes O2 post ambulation 88-91% with HR 86-95 b/m, with O2 supplement at 1.5L THEREX: Able to perform ankle pumps, quad sets, glut sets, supine hip abd/adduction with protection at heels, supine hip flexion with protection at heels, left UE bicep curls and shoulder flexion with assist to 90 degrees and bilateral shoulder horizontal abd/ add for 10 reps each. Performed exercises with O2 supplement at .75L, with O2 readings 86% with HR 88 to 102 post exercises. Does become SOB easily so exercises were perform slowly with rest between each activity. ASSESSMENT: Tolerated ther exercises fair, but increase in O2 supplement to 1.5L post activity did bring patient back to 88-92% recommended level while at rest. Did well with ambulation with O2 supplement at 1.5L, but does get SOB quickly. PLAN: Continue to work on improved ambulation and strengthening as able to tolerate. TREATMENT CODE/TIME: [id number], 10:30 to 10:48 (18') and 11:15 to 11:25 (10')
[2022-05-22] MEDS: Famotidine 20 MG TAB PO (12:21)
--- NOTE | 2022-05-22 15:15 | W.PM.PROGNOT ---
Date of Service Date of service: 05/22/22 Time of Service: 15:16 Assessment and Plan Assessment and plan (1) Acute and chronic respiratory failure with hypoxia: Status: Acute Assessment and plan: Chronic respiratory failure secondary to underlying COPD. Acute hypoxic respiratory failure secondary to RSV pneumonia and possible superimposed bacterial pneumonia. Change to oral antibiotics: cefpodoxime 200mg po BID. Doxycyline changed to oral. Now on 1L NC. Blood cultures negative to date. Normal shauna on sputum culture. Urine Legionella and urine strep antigens are negative. Encourage cough and deep breathing with I-S and acapella. Cont. chest physiotherapy. Now on prednisone 30mg daily and will taper. (2) RSV (respiratory syncytial virus infection): Status: Acute Assessment and plan: As above (3) COPD (chronic obstructive pulmonary disease): Status: Chronic Assessment and plan: Cont Neb txs. Taper O2. Continue Spiriva and Symbicort. (4) Gaseous distention of intestine determined by X-ray: Status: Acute Assessment and plan: Surgical consultation was obtained with Dr. Dorman. Patient has indicated she does not want further surgeries. Patient is on n.p.o. status. She did have a bowel movement yesterday. Unclear whether this was an enterocolitis versus exacerbation of her inflammatory bowel disease versus acute bowel ischemia nevertheless she continues to be nontender. Tolerating diet. (5) Ischemic bowel disease: Assessment and plan: As above. 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 On apixaban. (6) H/O inflammatory bowel disease: Status: Chronic Assessment and plan: As above. (7) Chronic heart failure with preserved ejection fraction (HFpEF): Status: Acute Assessment and plan: Repeat echocardiogram shows concentric LVH with an LVEF 55% no wall motion abnormalities. Normal RV size and function. Severe left atrial dilatation moderately dilated right atrium. Sclerotic aortic valve without stenosis or regurgitation MAC with mild mitral vegetation TR with mild regurgitation. Clinically does not appear to be in failure. (8) Atrial fibrillation: Status: Chronic Assessment and plan: Cont digoxin. Level of 0.96; normal. Cont Eliquis. Add Cardizem for better rate control; titrate as necessary. Monitor. Qualifiers: Atrial fibrillation type: unspecified Qualified Code(s): I48.91 - Unspecified atrial fibrillation (9) Coronary disease: Status: Chronic Assessment and plan: No symptoms of chest pain. Troponin was negative. (10) UTI (urinary tract infection): Status: Acute Assessment and plan: Gram positive shauna in urine cultue. (11) DNR (do not resuscitate): Status: Acute Assessment and plan: Patient is DNR/DNI status and does not want surgical intervention but short of surgery she wants medical management of her conditions. However she does not want resuscitation or placed on life support. In the event that she has a catastrophic event we will discuss with her and her daughter comfort measures and will enlist the support of her primary care provider Dr. Salinas (12) Involuntary movements: Status: Acute Assessment and plan: Chewing type movements and movements of torso; likely tardive dyskinesia. She has been on risperidone; now stopped. Now on depakote for sleep and dementia. (13) Discharge planning issues: Status: Acute Assessment and plan: Planning d/c to home with home health services. DNR/DNI Subjective Subjective Patient reports: no new complaints and afebrile; denies nausea, vomiting or shortness of breath Exam Narrative Exam Narrative: Sitting in chair. Smiling. Alert and interactive today. Pleasantly confused. Lungs are clear anteriorly. NC in place; 2L supplemental O2. Heart is irregularly irregular at a controlled rate Abdomen is soft nondistended, nontender to palpation Extremities without peripheral cyanosis or edema Neuro exam she has no facial asymmetry she is very hard of hearing. No focal motor deficits. Neuro Motor: other (chewing motions) Objective Last Vital Signs Temp 36.2 C L 05/22/22 11:28 Pulse 87 05/22/22 12:24 Resp 20 05/22/22 12:24 BP 100/66 05/22/22 12:24 Pulse Ox 90 L 05/22/22 14:11 Laboratory Results - last 24 hr 05/22/22 05:54 Sodium 139 Potassium 3.4 L Chloride 101 Carbon Dioxide 33.8 H Anion Gap 4.2 BUN 8 Creatinine 0.7 Est GFR (CKD-EPI 2020) 86.30 Glucose 105 Calcium 8.4 L Magnesium 1.9 Time Spent with Patient Time Spent with Patient: 25-34 minutes Time was spent: preparing to see the patient(eg.review tests), ordering medications,tests, procedures, indepentently interpreting results and care coordination
[2022-05-22] MEDS: Divalproex 125 MG TABEC 250 MG PO (17:29)
[2022-05-22] MEDS: traZODone 100 MG TAB PO (20:59)
[2022-05-22] MEDS: LORazepam 0.5 MG TAB PO (21:41)
[2022-05-23] VITALS (15 sets, daily range): BP systolic 105–126; BP diastolic 58–71; PULSE 63–104; RESP 18–24; TEMP 36.1–37; O2SAT 90–92
--- NOTE | 2022-05-23 | DI.RAD_ITS ---
Exam(s) XR PORTABLE CHEST AP EXAM: XR PORTABLE CHEST AP CLINICAL HISTORY: Bibasilar coarse crackles, CHF, PNA TECHNIQUE: 2D digital imaging was performed. COMPARISON: CR,XR XR PORTABLE CHEST AP from 05/15/[address] CHEST/ABD/PEL W from 05/18/2022 FINDINGS: Exam limited by portable technique. Leads overlie the chest. The heart is enlarged, limiting evaluation of the left lower lobe. Mitral annular calcification agai n noted. The aorta is tortuous and calcified. There are chronic fibrotic changes. No focal area of consolidation or overt pulmonary edema. No pneumothorax. Degenerative changes in the spine IMPRESSION: Limited exam. No acute findings. DATA REPOSITORY: RADIATION DOSE DELIVERED:
[2022-05-23 06:12] LABS: Abs Immature Grans 0.06 10^3/uL (0.0-0.06); Absolute Basophil Count 0.03 10^3/uL (0.0-0.2); Absolute Eosinophil Count 0.05 10^3/uL (0.0-0.7); Absolute Lymphocyte Count 1.43 10^3/uL (1.2-3.4); Absolute Monocyte Count 0.96 10^3/uL (0.1-0.8); Basophils % 0.3; Eosinophils % 0.5; HCT 39.1 % (36.0-46.0); HGB 12.5 g/dL (11.2-15.7); Immature Grans % 0.7; Lymphocytes % 15.5; MCH 29.2 pg (27.0-33.0); MCV 91 fL (80-95); MPV 10.5 fL (8.0-11.0); Monocytes % 10.4; Neutrophils % 72.6; Platelet Count 211 10^3/uL (130-400); RBC 4.28 10^6/uL (3.93-5.22); RDW 13.8 % (11.7-14.6); RDW-SD 46.6 fL; WBC 9.23 10^3/uL (4.4-10.8)
[2022-05-23 06:23] LABS: Anion Gap 3.4 mmol/L (3-11); BUN 13 mg/dL (7-18); CO2 32.6 mmol/L (21.0-32.0); CREATININE 0.6 mg/dL (0.55-1.02); Calcium 8.4 mg/dL (8.5-10.1); Chloride 101 mmol/L (98-107); Estimated GFR 89.56 (mL/min/1.73m2); Glucose 93 mg/dL (74-106); Potassium 3.8 mmol/L (3.5-5.1); Sodium 137 mmol/L (136-145)
[2022-05-23] MEDS: Aspirin E.C. 81 MG TABEC PO (08:56)
[2022-05-23] MEDS: Sertraline 50 MG TAB PO (08:56)
[2022-05-23] MEDS: Normal Saline Flush 10 ML SYR IVP ×3 (08:56→16:27)
[2022-05-23] MEDS: Apixaban 5 MG TAB PO ×2 (08:56→21:20)
[2022-05-23] MEDS: dilTIAZem 60 MG TAB PO ×4 (08:56→21:20)
[2022-05-23] MEDS: predniSONE 10 MG TAB 30 MG PO (08:57)
[2022-05-23] MEDS: Doxycycline Hyclate 100 MG CAP PO ×2 (08:57→21:20)
[2022-05-23] MEDS: Cefpodoxime 200 MG TAB PO ×2 (08:57→21:20)
[2022-05-23] MEDS: Potassium Chloride 20 MEQ TABCR PO ×2 (08:57→21:20)
[2022-05-23] MEDS: Digoxin 0.125 MG TAB PO (08:57)
[2022-05-23] MEDS: Tiotropium Bromide-Respimat 10 PUFF INH IH (09:06)
[2022-05-23] MEDS: Budesonide/Formoterol 160/4.5 6 GM 60 PUFF INH IH ×2 (09:06→19:21)
--- NOTE | 2022-05-23 10:50 | PT.INTREAT ---
Date of service: 05/23/22 Time of Service: 08:30 PT Notes Visit Reasons: Hypoxic Resp Failure,CHF,Viral Illness Inpatient Physical Therapy Treatment Note [facility] Date: 05/23/2022 PRECAUTIONS: Fall. Standard. Activity as tolerated. SUBJECTIVE: Stated she was agreeable to getting up to take a short walk and sit up in chair for breakfast. Did attempt to see patient for ther exercises after breakfast but she had just got back to bed and was very tired. OBJECTIVE: PAIN: No complaints of pain. BED MOBILITY/TRANSFERS Rolling L/R: Able to roll to right for supine to sit transfer with SBA Supine-sit: min assist Sit-supine: min assist Sit-stand: CGA Stand-sit: CGA GAIT Assisted nurse Lockhart with getting patient's weight on scales bedside to standing on scales with min assist x 2. SBA while getting weight. Assistive Device: FWW Weight bearing: Full Assist: CGA Distance: 20ft bed to door and to toilet, 8ft toilet to recliner for breakfast Deviation: slow, short steps with decrease step height VITALS: Utilizing 1L O2 supplement, O2 readings decreased to 86% but back to 88% after 1-2 minutes seated rest. Toileting: Able to urinate while on toilet and was independent with wiping to clean THEREX: Did attempt to see patient for bed exercises later in the morning, but had just gotten back to bed with nursing staff and indicated she would try to do ankle pumps, quad sets, hip flexion and abduction after she rested. ASSESSMENT: Did well with ambulation prior to breakfast. But nurse Lockhart indicated Deb was very sleepy later in the morning so was gotten back to bed. PLAN: Continue to work on improving functional mobility with transfers, ambulation, as well as strengthening of UE/LE as tolerated. TREATMENT CODE/TIME: [id number], 8:30 to 8:45 (15')
[2022-05-23] MEDS: Furosemide 40 MG/4 ML VIAL IVP (11:03)
[2022-05-23] MEDS: Famotidine 20 MG TAB PO (12:48)
[2022-05-23] MEDS: LORazepam 0.5 MG TAB PO ×2 (12:52→22:28)
--- NOTE | 2022-05-23 13:13 | DI.VRAD_ITS ---
PROCEDURE INFORMATION: Exam: XR Chest Exam date and time: 05/23/2022 12:17 PM Age: 81 years old Clinical indication: Other: Bibasilar coarse crackles, chf, pna TECHNIQUE: Imaging protocol: Radiologic exam of the chest. Views: 1 view. COMPARISON: CT CHEST/ABD/PEL W 09/13/2022 11:47 FINDINGS: Tubes, catheters and devices: EKG wires overlie the chest. Lungs: Low lung volumes. Crowding of the central pulmonary vasculature. Consolidation at the left base. Increased reticular markings at the right base. Coarse increased bilateral interstitial markings. Pleural spaces: Blunted left lateral costophrenic angle. Heart/Mediastinum: Cardiomegaly. Vasculature: Atherosclerotic disease. Bones/joints: Unremarkable for patient's age. IMPRESSION: 1. Consolidation of the left base. 2. Increased reticular markings at the left base. 3. Cardiomegaly. Dictated and Authenticated by: Soniya Thompson MD. Ordering:ZANE Sapp MD
--- NOTE | 2022-05-23 13:57 | W.PM.PROGNOT ---
Date of Service Date of service: 05/23/22 Time of Service: 13:58 Assessment and Plan Assessment and plan (1) Acute and chronic respiratory failure with hypoxia: Status: Acute Assessment and plan: Chronic respiratory failure secondary to underlying COPD. Acute hypoxic respiratory failure secondary to RSV pneumonia and possible superimposed bacterial pneumonia. Change to oral antibiotics: cefpodoxime 200mg po BID. Doxycyline changed to oral. Now on 1L NC. Blood cultures negative to date. Normal shauna on sputum culture. Urine Legionella and urine strep antigens are negative. Encourage cough and deep breathing with I-S and acapella. Cont. chest physiotherapy. Now on prednisone 30mg daily and will taper. (2) RSV (respiratory syncytial virus infection): Status: Acute Assessment and plan: CXR shows left basilar consolidation and increased reticular markings. No increased supplemental resp needs. Lasix 40mg IV given. Cont antibiotics. WBC count normal and afebrile. (3) COPD (chronic obstructive pulmonary disease): Status: Chronic Assessment and plan: Cont Neb txs. Taper O2. Continue Spiriva and Symbicort. (4) Gaseous distention of intestine determined by X-ray: Status: Acute Assessment and plan: Surgical consultation was obtained with Dr. Dorman. Patient has indicated she does not want further surgeries. Patient is on n.p.o. status. She did have a bowel movement yesterday. Unclear whether this was an enterocolitis versus exacerbation of her inflammatory bowel disease versus acute bowel ischemia nevertheless she continues to be nontender. Tolerating diet. (5) Ischemic bowel disease: Assessment and plan: As above. 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 On apixaban. (6) H/O inflammatory bowel disease: Status: Chronic Assessment and plan: As above. (7) Chronic heart failure with preserved ejection fraction (HFpEF): Status: Acute Assessment and plan: Repeat echocardiogram shows concentric LVH with an LVEF 55% no wall motion abnormalities. Normal RV size and function. Severe left atrial dilatation moderately dilated right atrium. Sclerotic aortic valve without stenosis or regurgitation MAC with mild mitral vegetation TR with mild regurgitation. Clinically does not appear to be in failure. (8) Atrial fibrillation: Status: Chronic Assessment and plan: Cont digoxin. Level of 0.96; normal. Cont Eliquis. Add Cardizem for better rate control; titrate as necessary. Monitor. Qualifiers: Atrial fibrillation type: unspecified Qualified Code(s): I48.91 - Unspecified atrial fibrillation (9) Coronary disease: Status: Chronic Assessment and plan: No symptoms of chest pain. Troponin was negative. (10) UTI (urinary tract infection): Status: Acute Assessment and plan: Gram positive shauna in urine cultue. (11) DNR (do not resuscitate): Status: Acute Assessment and plan: Patient is DNR/DNI status and does not want surgical intervention but short of surgery she wants medical management of her conditions. However she does not want resuscitation or placed on life support. In the event that she has a catastrophic event we will discuss with her and her daughter comfort measures and will enlist the support of her primary care provider Dr. Salinas (12) Involuntary movements: Status: Acute Assessment and plan: Chewing type movements and movements of torso; likely tardive dyskinesia. She has been on risperidone; now stopped. Now on depakote for sleep and dementia. (13) Discharge planning issues: Status: Acute Assessment and plan: Planning d/c to home with home health services. DNR/DNI Subjective Subjective Patient reports: no new complaints and afebrile; denies diarrhea, nausea or vomiting Exam Narrative Exam Narrative: Sitting on side of bed. Appears fatigued. Less interative. Lungs; coarse breath sounds in bases. Heart is irregularly irregular at a controlled rate Abdomen is soft nondistended, nontender to palpation Extremities without peripheral cyanosis or edema Neuro exam she has no facial asymmetry she is very hard of hearing. No focal motor deficits. Neuro Motor: other (chewing motions) Objective Last Vital Signs Temp 36.1 C L 05/23/22 12:42 Pulse 84 05/23/22 12:42 Resp 20 05/23/22 12:42 BP 110/60 05/23/22 12:42 Pulse Ox 90 L 05/23/22 12:42 Laboratory Results - last 24 hr 05/23/22 05/23/22 05:33 05:33 WBC 9.23 RBC 4.28 Hgb 12.5 Hct 39.1 MCV 91 MCH 29.2 MCHC 32.0 RDW 13.8 Plt Count 211 MPV 10.5 Immature Gran % 0.7 Neutrophils % 72.6 Lymphocytes % 15.5 Monocytes % 10.4 Eosinophils % 0.5 Basophils % 0.3 Nucleated RBC % 0.0 Absolute Neutrophils 6.70 Absolute Lymphocytes 1.43 Absolute Monocytes 0.96 H Absolute Eosinophils 0.05 Absolute Basophils 0.03 Sodium 137 Potassium 3.8 Chloride 101 Carbon Dioxide 32.6 H Anion Gap 3.4 BUN 13 Creatinine 0.6 Est GFR (CKD-EPI 2020) 89.56 Glucose 93 Calcium 8.4 L Time Spent with Patient Time Spent with Patient: 35-49 minutes Time was spent: preparing to see the patient(eg.review tests), ordering medications,tests, procedures and indepentently interpreting results
[2022-05-23] MEDS: Divalproex 125 MG TABEC 250 MG PO (18:57)
[2022-05-23] MEDS: traZODone 100 MG TAB PO (21:20)
[2022-05-24 03:13] VITALS: BP 129/62; PULSE 71; RESP 19; TEMP 36.5; O2SAT 92
[2022-05-24 07:14] VITALS: BP 120/67; PULSE 58; RESP 18; TEMP 36.5; O2SAT 92
[2022-05-24] MEDS: Budesonide/Formoterol 160/4.5 6 GM 60 PUFF INH IH (08:00)
[2022-05-24] MEDS: Tiotropium Bromide-Respimat 10 PUFF INH IH (08:01)
--- NOTE | 2022-05-24 08:01 | W.PALPGNOTE ---
Date of service: 05/24/22 Time of Service: 08:01 Assessment and Plan Assessment and plan (1) Chronic heart failure with preserved ejection fraction (HFpEF): Status: Acute Assessment and plan: Deb is doing much much better. She is recovering from her RSV. Her breathing is better and she feels good. She is definitely getting around more and feels strong. Regarding her CHF?I did still did hear a few rales, but this might be the final clearing from her pneumonia We did discuss her choice to not consider operative therapy if she were to have ischemic bowel. She is very comfortable with that decision and looks forward to going home and being with her family. I did relay this to hospitalist team Subjective Subjective Interval history since last seen: Feeling much better. Wants to go home. Breathing better. Feels like she is strong enough to manage at home. Nursing states that she was given Lasix yesterday because of crackles. Exam Narrative Exam Narrative: Deb looks much better. She is smiling today. She is humorous. Alert and oriented. Her heart is normal rate. Rate is controlled. Lungs there are still some scattered crackles especially in the right base. Abdomen is nontender. Mood is good Objective Last Vital Signs Temp 97.7 F 05/24/22 07:14 Pulse 58 L 05/24/22 07:14 Resp 18 05/24/22 07:14 BP 120/67 05/24/22 07:14 Pulse Ox 92 05/24/22 07:14
[2022-05-24 08:04] VITALS: O2SAT 97
[2022-05-24 08:17] VITALS: PULSE 58
[2022-05-24] MEDS: Digoxin 0.125 MG TAB PO (08:17)
[2022-05-24] MEDS: Doxycycline Hyclate 100 MG CAP PO (08:17)
[2022-05-24] MEDS: Apixaban 5 MG TAB PO (08:17)
[2022-05-24] MEDS: dilTIAZem 60 MG TAB PO ×2 (08:17→12:16)
[2022-05-24] MEDS: Cefpodoxime 200 MG TAB PO (08:17)
[2022-05-24] MEDS: Sertraline 50 MG TAB PO (08:18)
[2022-05-24] MEDS: Aspirin E.C. 81 MG TABEC PO (08:18)
[2022-05-24] MEDS: predniSONE 20 MG TAB PO (08:18)
[2022-05-24] MEDS: Normal Saline Flush 10 ML SYR IVP (08:18)
[2022-05-24] MEDS: Potassium Chloride 20 MEQ TABCR PO (08:18)
[2022-05-24] MEDS: Furosemide 40 MG/4 ML VIAL IVP (08:18)
[2022-05-24] MEDS: LORazepam 0.5 MG TAB PO (08:26)
--- NOTE | 2022-05-24 08:39 | CMPROGNOTE_ITS ---
- If Service Date Differs Date of service: 05/24/22 Time of Service: 08:39 Care Management Progress Note S/O: Deb was sitting up in a chair when CM met with her. A: Deb is an 81 year old woman admitted on 05/15/22 with respiratory failure P:Anticipate Deb will be discharged home when medically cleared by provider with [facility] services. She will follow up with community providers and discharge plan of care and transport with family. CM will continue to support Deb and her discharge planning needs.
[2022-05-24 10:05] VITALS: PULSE 137; PULSE 83; PULSE 93; RESP 20; RESP 22; RESP 25; O2SAT 89; O2SAT 90; O2SAT 92
--- NOTE | 2022-05-24 10:09 | PT.INTREAT ---
Date of service: 05/24/22 Time of Service: 09:30 PT Notes Visit Reasons: Hypoxic Resp Failure,CHF,Viral Illness Inpatient Physical Therapy Treatment Note [facility] Date: 05/24/2022 PRECAUTIONS: Fall, Activity as tolerated SUBJECTIVE: Deb reports that she didn't sleep well last night and that she is tired. She reports that she wants to go home. She is pleasant and agreeable to participating in PT. OBJECTIVE: Per practical nursing instructor request, held further PT activity due to tachycardia (120-150 bpm) with gait and stair training. PAIN: No c/o pain BED MOBILITY/TRANSFERS Sit-stand: SBA Stand-sit: SBA GAIT Assistive Device: FWW Weight bearing: Full Assist: SBA Distance: 100' Deviation: Gait unremarkable, 1L O2 via NC STAIRS: Up/down 3x4 and 2x6 using B rails and a step-to pattern with SBA TOILETING: Patient was incontinent of urine requiring assist. ASSESSMENT: Patient tolerated session well without complaint. She was able to tolerate a progression in gait distance with FWW support and SBA. She was also able to tolerate the addition of stair training, which she tolerated well without c/o SOB. Patient was limited by tachycardia with PT activity. PLAN: Continue with general conditioning and gait and transfer training for improved activity tolerance, as appropriate. TREATMENT CODE/TIME: 25 minutes; 23112 x2 (09:30)
[2022-05-24 12:16] VITALS: BP 114/59; PULSE 98; RESP 22; TEMP 36.3; O2SAT 89
[2022-05-24] MEDS: Famotidine 20 MG TAB PO (12:16)
--- NOTE | 2022-05-24 13:45 | PDOC.CMDIS ---
- If Service Date Differs Date of service: 05/24/22 Time of Service: 13:46 LACE Index Scoring Tool - Questions: Length of Stay (in days): 7 - 13 Acuity (Admit via E.D.?): Yes Comorbidities: Cerebrovascular Disease, Congestive Heart Failure, Chronic Pulmonary Disease, Liver or Renal Disease E.D. Visits: 2 - Answers: Total Score: 15 Risk of Readmission: High Risk Care Management Discharge Reason for Hospitalization: Hypoxic Repiratory Failure, CHF, Viral illness Discharge Plan: Deb will be discharged home with new home health services for nursing and PT. She will follow up with community providers and discharge plan of care as prescribed. Her daughter Mimi will drive her home. Patient/Family Education Needs: Discharge instructions, activity, limitations, follow up plan of care, including Ask Me Three and self-management. Services Needed at Discharge: Home Health Care Services
--- NOTE | 2022-05-24 13:56 | W.PM.DS.N ---
Date of service: 05/24/22 Time of Service: 13:56 DS: Diagnosis Discharge Diagnosis (1) Acute and chronic respiratory failure with hypoxia: Status: Acute (2) RSV (respiratory syncytial virus infection): Status: Acute (3) COPD (chronic obstructive pulmonary disease): Status: Chronic (4) Gaseous distention of intestine determined by X-ray: Status: Acute (5) Ischemic bowel disease: (6) H/O inflammatory bowel disease: Status: Chronic (7) Chronic heart failure with preserved ejection fraction (HFpEF): Status: Acute (8) Atrial fibrillation: Status: Chronic (9) Coronary disease: Status: Chronic (10) UTI (urinary tract infection): Status: Acute (11) DNR (do not resuscitate): Status: Acute (12) Involuntary movements: Status: Acute (13) Discharge planning issues: Status: Acute Discharge Plan Disposition Patient Disposition: Home W/Home Health Services Condition: Fair Discharge Details Reason For Visit: Hypoxic Resp Failure,CHF,Viral Illness Admit Date/Time: 05/15/22 17:25 Admit Provider: Rosendo Seals Attending Provider: Rosendo Seals Primary Care Provider: Carolin Salinas Hospital Course Hospital Course: This is an 81-year-old female patient with a past medical history significant for atrial fibrillation, fully anticoagulated on apixaban, and COPD who went to her PCP on 05/14/2022 for increasing difficulty breathing.? During the interview there, according to the care nurse rn, ?the patient was not taking her Spiriva for quite a few months.? The caregiver reported the patient cannot remember how to put the capsule in the machine and then to inhale it.? She was diagnosed with a viral illness.? At that appointment, the patient?s lungs were reported as clear.? Her oxygen saturation was reported as 89%. The caregiver reports this as the patient?s baseline.? Covid and flu negative. She was ?instructed to use [id number] products such as NyQuil and DayQuil to help manage her nasal congestion and cough.? The next day, 05/15/2022, her breathing was worse and she presented to the [facility] emergency department for evaluation.? She complained of a nonproductive cough, shortness of breath and wheezing, bilateral extremity edema on examination, relatively hypotensive and tachycardic, speaking in full sentences, alert oriented, saturating in the high 80s on room air.? She was given a DuoNeb and steroids minimal B-lines on bedside ultrasound.? Awaiting chest x-ray.? Patient felt better after breathing treatment, remained tachycardic and marginally hypotensive. She was also given furosemide for what appeared to be excess fluid. In the ED she was found to be RSV positive. She was admitted to the medical floor for RSV, acute on chronic diastolic congestive heart failure,? and COPD with IV Furosemide, IV steroids and antibiotics. An echo was done 05/16/20 that demonstrated normal systolic LV function w/ LVEF 60-65% with mild LVH. RV size and function are normal. She has mild PHTN. She had atrial enlargement and mild MR. She continued to be in Atrial fibrillation with rapid ventricular response, 90-150s and SBP~100. She was seen by Palliative Care while she was in the hospital and after discussion chose to be DNR/DNI and she also stated she did not want surgery even if not having surgery would kill her. Blood cultures were negative, urine Legionella and urine Strep were negative. She was give IV furosemide and antibiotics (7 days). Her respiratory status improved and on hospital day 9 she was discharged home.? She has no oxygen requirement at discharge.? With history of CHF, we have requested home health for nursing, weight, heart rate, oxygen saturations, labs and PT for strengthening. She was prescribed a prednisone taper. She was discharged to home with family, stable. Discussed with Dr Akbar Home Meds and New Rx's Prescriptions: New budesonide-formoterol [Symbicort] 160-4.5 mcg/actuation Hfa Aerosol Inhaler 2 puff inhalation BID Qty: 10.2 0RF prednisone 10 mg tablet 10 mg PO DIRECTED Qty: 6 0RF Rx Instructions: 20 mg daily x 2 days; 10 mg daily x 2 day - stop Continued magnesium oxide 400 mg (241.3 mg magnesium) tablet 400 mg PO DAILY Qty: 90 5RF fluticasone propionate 220 mcg/actuation HFA aerosol inhaler 1 puff IH BID Qty: 12 12RF potassium chloride [Klor-Con M20] 20 mEq tablet,ER particles/crystals 20 meq PO BID Qty: 180 5RF risperidone [Risperdal] 2 mg tablet 2 mg PO HS Qty: 90 5RF sertraline 50 mg tablet 50 mg PO DAILY Qty: 90 5RF trazodone 100 mg tablet 100 mg PO HS Qty: 90 5RF Spiriva with HandiHaler 18 mcg capsule, w/inhalation device 1 cap inhalation DAILY Qty: 90 3RF Rx Instructions: puncture 1 cap using device; one dose = 2 inhalations Lactobacillus acidophilus 1 EACH tablet 1 ea PO BID Immodium 1 - 2 cap PO PRN aspirin [Aspir-81] 81 MG tablet,delayed release (DR/EC) 81 mg PO DAILY Eliquis 5 mg tablet 5 mg PO BID Qty: 180 5RF lorazepam 0.5 mg tablet 0.5 mg PO TID PRN Qty: 270 4RF albuterol sulfate 90 mcg/actuation HFA aerosol inhaler 2 puff IH Q4H PRN (Reason: shortness of breath) Qty: 18 6RF digoxin 125 mcg (0.125 mg) tablet 125 mcg PO DAILY Qty: 90 5RF acetaminophen [Tylenol] 325 MG tablet 650 mg Q8H PRN PRN Changed furosemide 20 mg tablet 40 mg PO DAILY Qty: 90 5RF Discharge Instructions Instructions: Furosemide (By mouth), Prednisone (By mouth), Chronic Lung Disease and Infection Prevention (ED) Additional Instructions: Increase Lasix (furosemide) to 40 mg once daily until follow up with PCP. Take Prednisone 20 mg orally daily for 2 days, then 10 mg orally daily for 2 days, then stop. Home health will draw your blood next week to check your electrolytes. Stand Alone Forms: Nursing Discharge Form Referrals: Carolin Salinas MD, [place] [Primary Care Provider] - (The Daughter will call an make an Appointment in the next 1-2 weeks ) Activity:: Activity as Tolerated Equipment/Supplies:: Walker Diet:: Low Sodium Discharge Orders Discharge Orders: Discharge Order (Routine); Ordered 05/24/22 Ordered By: Mimi Dowd Other Ambulatory Orders: Basic Metabolic Panel (Routine) Timeframe: 1 Week Location: None Selected Ordered By: Mimi Dowd Discharge Data Discharge Date/Time-TO BE ENTERED AT DEPARTURE: 05/24/22 14:28 DS: Summary Time Spent with Patient providing and/or coordinating discharge services: Greater than 30 minutes Status at Discharge Functional status at discharge: uses cane/walker Overall status at discharge: patient is progressing back to baseline Mental Status: mental status grossly normal Speech and Movement: speech and movement normal Mood: congruent mood Affect: normal affect Exam Narrative Exam Narrative: Awake, alert, sitting in a chair , no oxygen requirement. Const General: cooperative, comfortable and no acute distress Nutritional Appearance: obese Orientation: alert, awake and oriented x3 HENMT Head: normal to inspection Eyes General: appearance normal, both eyes and all related structures Neck Neck: normal visual inspection Chest Chest: normal inspection of the chest Resp Effort & Inspection: normal respiratory effort, able to speak in complete sentences, no audible wheezes, no cough, not labored, no pursed lip breathing and no use of accessory muscles Auscultation: clear to auscultation bilaterally Cardio Jugular venous pressure: no JVD Rate: regular rate Rhythm: regular rhythm Heart Sounds: S1 normal and S2 normal GI Inspection: normal to inspection Palpation: soft Auscultation: normal bowel sounds Skin General skin exam: no rashes or lesions noted Neuro General: patient alert, patient awake, patient oriented x3 and other (stereotypic mastication ) Extrem General: normal to inspection Psych Mental Status: mental status grossly normal Speech and Movement: speech and movement normal Mood: congruent mood Affect: normal affect DS: Data Vitals/I&O Vitals and I&O: Vital Signs Temperature 36.3 C L 05/24/22 12:16 Temperature Source Tympanic 05/24/22 12:16 Pulse 98 H 05/24/22 12:16 Pulse Rhythm Irregular 05/24/22 07:20 Pulse 106 H 05/21/22 12:00 Respiratory Rate 22 05/24/22 12:16 Respiratory Effort Non-Labored 05/24/22 07:20 Respiratory Depth Normal 05/24/22 07:20 Respiratory Pattern Normal 05/24/22 07:20 Blood Pressure 114/59 L 05/24/22 12:16 Blood Pressure Mean 84 05/21/22 00:01 Blood Pressure Position Sitting 05/20/22 17:08 Pulse Oximetry 89 L 05/24/22 12:16 Oxygen Delivery Method Room Air 05/24/22 12:16 Oxygen Flow Rate 0 05/24/22 12:16 Fraction of Inspired Oxygen (FIO2) 91 05/23/22 12:46 Pain Level 0 05/24/22 03:16 Comment INCREASED TO 2LNC 05/23/22 12:42 Intake & Output 0305/24/22 05/24/22 23:59 11:59 23:59 Intake Total 760 / 1000 540 / 720 180 / 720 Output Total 1100 / 1450 1600 / 1900 300 / 1900 Balance -340 / -450 -1060 / -1180 -120 / -1180 Weight 68.1 kg Intake: Oral 760 / 1000 540 / 720 180 / 720 Output: Urine 1100 / 1450 1600 / 1900 300 / 1900 Other: Urine Color Pale Pale Pale Yellow Yellow Urine Appearance Clear Clear Clear Urine Odor None None Comment also saturated bed and brief, unable to count amount plus grossly incontinent Voiding Methods Bedside Commode Toilet Bedside Commode Incontinent Incontinent [facility] All Active Problems (Updated 05/22/22 @ 15:31 by Sekou Guerrero MD) Discharge planning issues (Acute) Involuntary movements (Acute) Chronic heart failure with preserved ejection fraction (HFpEF) (Acute) Acute and chronic respiratory failure with hypoxia (Acute) Gaseous distention of intestine determined by X-ray (Acute) UTI (urinary tract infection) (Acute) Nausea and vomiting (Acute) Hypokalemia (Acute) RSV (respiratory syncytial virus infection) (Acute) Respiratory failure with hypoxia (Acute) DNR (do not resuscitate) (Acute) Physician orders for life-sustaining treatment (POLST) form indicates patient wish for ue-myb-whwvhvfgtve status (Acute) Pulmonary hypertension (Acute) Acute on chronic diastolic (congestive) heart failure (Acute) Hypoxia (Acute) ST segment changes on electrocardiogram (Acute) Atrial fibrillation (Chronic) Tubular adenoma of colon (Chronic 03/04/14) 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 plaque per [place] onychomycosis Cognitive change Complete edentulism, unspecified Congestive heart failure Conjunctivitis COPD (chronic obstructive pulmonary disease) with emphysema CVD (cardiovascular disease) Dependence on supplemental oxygen Depression a. with psychotic features Diarrhea (11/19/14) Discharge planning issues 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 02/18-09/19, normal metanephrines, normal dexamethasone suppression. 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 hypokalemia b. hypomagnesemia Elevated LDH Elevated serum lactate dehydrogenase (LDH) Encounter for monitoring diuretic therapy Essential (primary) hypertension 06/01/13 Hiatus hernia syndrome 12/05/14 [facility] – [place]; EGD History of tobacco use 100pack/years History of tobacco use Hyperlipidemia Increased body mass index Ischemic bowel disease 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) Palliative care patient Palpitations 08/26/14; FREQ PVC BY HOLTER Palpitations Right hip pain Right pontine CVA [facility]-01/30/16; 8X5 mm RUQ abdominal pain Seborrheic keratosis (01/01/16) punch/shave biopsy skin of left arm Seborrheic keratosis (01/01/16) Shortness of breath (10/14/16) SVT (supraventricular tachycardia) (09/15/14) Tachycardia Urinary frequency (08/21/15) Vascular insufficiency of intestine (06/12/15) Weight loss (04/02/14) Weight loss, abnormal (~06/11/21) 30# in last yr Surgical History Appendectomy Biopsy, Soft Tissue (01/01/16) Punch/shave biospy of skin of left arm, seborrheic keratosis Colectomy (09/18/14) DR. GRAJEDA Hemicolectomy [facility]; 09/15/14; RIGHT History of bilateral ligation of fallopian tubes History of partial colectomy 09/15/14 right hemicolectomy w/ileocolic anastomosis History of partial surgical removal of colon (09/15/14) Ligation of fallopian tube S/P AAA repair S/P tubal ligation Status post appendectomy Family History Mother Essential hypertension Alzheimer's disease Father Heart disease Breast cancer Prostate cancer Sister Myocardial infarction Sister Myocardial infarction Brother Cancer Sister No problems noted. Sister No problems noted. Brother Substance abuse Brother Substance abuse Brother Substance abuse Cancer Son No problems noted. Daughter No problems noted. Social History Smoking/Tobacco Use Status: Former Tobacco Use Smoking risk assessment performed?: Yes Alcohol Intake: never Drug use: Never Substance use type: does not use Household members: other Details: 4 Pets and animals: Yes Pets and animals: cat(s) and dog(s) Current gender identity: decline to answer What is your relationship status?: refused to answer How often do you talk on the phone with friends or family?: decline to answer How often do you get together with friends or relatives?: decline to answer How often do you attend jew or mormonism services?: decline to answer Do you belong to any clubs or organized social groups?: decline to answer Panel score (0-1 are the most socially isolated patients): 0 What type of physical activity do you participate in: none Lelo/Adventist: No preference Special lelo needs: No Do you feel safe at home: Yes Do you feel safe in your relationship?: Yes Time Spent with Patient Time Spent with Patient: 45-69 minutes Time was spent: preparing to see the patient(eg.review tests), obtaining and/or reviewing separately otained hiistory, ordering medications,tests, procedures, referring, communicating with other health director of career services, indepentently interpreting results, counseling the patient and care coordination
--- NOTE | 2022-05-24 16:23 | PDOC.HHF2F ---
Home Health Referral Home Health Orders Clinical synopsis of why skilled professionals are needed: This is an 81-year-old female patient with a past medical history significant for atrial fibrillation, fully anticoagulated on apixaban, and COPD who went to her PCP on 05/14/2022 for increasing difficulty breathing.? During the interview there, according to the managed care provider, ?the patient was not taking her Spiriva for quite a few months.? The caregiver reported the patient cannot remember how to put the capsule in the machine and then to inhale it.? She was diagnosed with a viral illness.? At that appointment, the patient?s lungs were reported as clear.? Her oxygen saturation was reported as 89%. The caregiver reports this as the patient?s baseline.? Covid and flu negative. She was ?instructed to use [id number]-qnn-[id number] products such as NyQuil and DayQuil to help manage her nasal congestion and cough.? The next day, 05/15/2022, her breathing was worse and she presented to the [facility] emergency department for evaluation.? She complained of a nonproductive cough, shortness of breath and wheezing, bilateral extremity edema on examination, relatively hypotensive and tachycardic, speaking in full sentences, alert oriented, saturating in the high 80s on room air.? She was given a DuoNeb and steroids minimal B-lines on bedside ultrasound.? Awaiting chest x-ray.? Patient felt better after breathing treatment, remained tachycardic and marginally hypotensive. She was also given furosemide for what appeared to be excess fluid. In the ED she was found to be RSV positive. She was admitted to the medical floor for RSV, acute on chronic diastolic congestive heart failure,? and COPD with IV Furosemide, IV steroids and antibiotics. An echo was done 05/16/20 that demonstrated normal systolic LV function w/ LVEF 60-65% with mild LVH. RV size and function are normal. She has mild PHTN. She had atrial enlargement and mild MR. She continued to be in Atrial fibrillation with rapid ventricular response, 90-150s and SBP~100. She was seen by Palliative Care while she was in the hospital and after discussion chose to be DNR/DNI and she also stated she did not want surgery even if not having surgery would kill her. Blood cultures were negative, urine Legionella and urine Strep were negative. She was give IV furosemide and antibiotics (7 days). Her respiratory status improved and on hospital day 9 she was discharged home.? She has no oxygen requirement at discharge.? With history of CHF, we have requested home health for nursing, weight, heart rate, oxygen saturations, labs and PT for strengthening. She was prescribed a prednisone taper. She was discharged to home with family, stable. Medical diagnosis necessitation home health referral: CHF; COPD; Respiratory failure Registered Nurse: Check all that apply Instruct on new or changed medication(s)/assess compliance: Ordered Other: Consider telemedicine monitoring - she would be a good candidate with CG assistance; she might need home oxygen in the near future, although at this point does not. Draw labs 05/31/22 or 06/01/22: BMP; Dx: I50.[address] Salinas Physical Therapist: Check all that apply Increase strength & endurance for safe mobility at home: Ordered To design/establish home maintenance program: Ordered Fall reduction therapy program for patient with history of frequent falls: Ordered Home safety evaluation and teaching/gait training including stair management (if applicable): Ordered Better Breathing Program: Ordered Occupational Therapist: Evaluate and treat for patient unable to perform ADL/IADL/self-care: Ordered Upper extremity strengthening, range and motion: Ordered Corporate Associate Attorney: Assist with community resources: Ordered Assist with longterm care planning: Ordered Home Bound Status Requires the aid of supportive device (check all that apply): Walker Assistance of another person (Describe assistance and medical necessity): Requires assistance of another person and device for safety with ambulation Patient has a condition such that leaving home is medically contraindicated (Describe): Becomes hypoxic quickly with any exertion Describe why leaving home would require a considerable and taxing effort: Requires frequent rest periods Encounter Date and Reason: I certify that a FTF encounter for this patient was performed on May 24, 2022 and that such encounter was related to the primary reason the patient requires home health services. The encounter was conducted in the following manner: By me as the certifying physician, SERVER PROGRAMMER, PA or By an inpatient physician, SERVER PROGRAMMER or PA during an inpatient stay who communicated findings to me, Certification And Authentication I certify that I composed the above information based on my clinical judgment relating to this patient's medical condition and, if applicable, clinical findings communicated to me by the NPP or inpatient physician who performed the FTF encounter. Name of Provider that will be monitoring home health services: Carolin Salinas
--- NOTE | 2022-05-26 18:21 | PT.INDS ---
Date of service: 05/24/22 PT Notes Visit Reasons: Hypoxic Resp Failure,CHF,Viral Illness Physical Therapy Inpatient Discharge Summary Date: 05/24/2022 Dates of Service: 05/21/2022 through 05/24/2022 This is a clinical summary of care provided for the duration of dates listed above. No charge was made in the completion of this documentation. Referring Doctor: Sekou Guerrero MD PT Orders: PT CONSULT: Eval/treat Precautions: Fall. Standard. Activity as tolerated. Patient Profile/Admitting Diagnosis:? Deb Her is an 81-year-old female with diagnosis of acute on chronic respiratory failure with hypoxia, RSV, COPD, gaseous distention, ischemic bowel disease, inflammatory bowel disease, chronic heart failure with preserved EF, AF, CAD, and UTI. PMHX: All Active Problems?(Updated 05/15/22 @ 17:41 by Ella Koenig NP) Hypokalemia (Acute) RSV (respiratory syncytial virus infection) (Acute) Respiratory failure with hypoxia (Acute) Conjunctivitis (Acute) Right hip pain (Acute) Cognitive change (Acute) RUQ abdominal pain (Acute) Weight loss, abnormal (Acute ~06/11/21) 30# in last yr Aminah onychomycosis (Acute) Bradycardia (Acute) Encounter for monitoring diuretic therapy (Acute) Congestive heart failure (Chronic) DNR (do not resuscitate) (Acute) Physician orders for life-sustaining treatment (POLST) form indicates patient wish for [id number] status (Acute) Discharge planning issues (Acute) DVT prophylaxis (Acute) Pulmonary hypertension (Acute) Acute on chronic diastolic (congestive) heart failure (Acute) Hypoxia (Acute) ST segment changes on electrocardiogram (Acute) Atrial fibrillation (Chronic) Tachycardia (Acute) Weight loss (Chronic 04/02/14) Urinary frequency (Chronic 08/21/15) Tubular adenoma of colon (Chronic 03/04/14) Shortness of breath (Chronic 10/14/16) 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 Positive neutrophil AB mostlikely indicating ulcerative colitis Increased body mass index (Chronic) Hyperlipidemia (Chronic) Diarrhea (Chronic 11/19/14) Complete edentulism, unspecified (Chronic) Atherosclerosis (Chronic) Anxiety (Chronic 07/25/17) Coronary disease (Chronic) COPD (chronic obstructive pulmonary disease) (Chronic) Hypertension (Chronic) SCHAEFFER (nonalcoholic steatohepatitis) (Chronic) H/O inflammatory bowel disease (Chronic) SVT (supraventricular tachycardia) (Chronic 09/15/14) Medical History?(Updated 05/15/22 @ 17:41 by Ella Koenig NP) Abdominal aortic aneurysm (05/31/12) 4.4 cm 07/20 s/p repair 2013 Arm skin lesion, left (12/09/15) Atherosclerosis Bruit Bruit of left carotid artery mild-mod. plaque per U/S COPD (chronic obstructive pulmonary disease) with emphysema CVD (cardiovascular disease) Dependence on supplemental oxygen Depression a.? with psychotic features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 02/18-09/19, normal metanephrines, normal dexamethasone suppression.Disorder of adrenal gland Disorder of appendix 12/07/12? s/p appendectomy Disorder of appendix (12/07/12) Electrolyte imbalance (09/15/14) a.? hypokalemia b.? hypomagnesemia Elevated LDH Elevated serum lactate dehydrogenase (LDH) Essential (primary) hypertension 06/01/13 Hiatus hernia syndrome 12/05/14 [facility] [place]; EGD History of tobacco use 100pack/years History of tobacco use Ischemic bowel disease 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) Palliative care patient Palpitations 08/26/14; FREQ PVC BY HOLTER Right pontine CVA [facility]-01/30/16; 8X5 mm Seborrheic keratosis (01/01/16) punch/shave biopsy skin of left arm Seborrheic keratosis (01/01/16) Vascular insufficiency of intestine (06/12/15) Surgical History? Appendectomy Biopsy, Soft Tissue (01/01/16) Punch/shave biospy of skin of left arm, seborrheic keratosis Colectomy (09/18/14) DR. GRAJEDA Hemicolectomy [facility]; 09/15/14; RIGHT History of bilateral ligation of fallopian tubes History of partial colectomy 09/15/14? right hemicolectomy w/ileocolic anastomosis History of partial surgical removal of colon (09/15/14) Ligation of fallopian tube S/P AAA repair S/P tubal ligation. Status post appendectomy Social History/Home Situation: Lives with daughter in a private home.? Independent with all mobility ADL performance without an assistive device. Equipment Owned/DME: FWW Subjective: NT. See most recent [employer] notes. Objective: General Observation: NT. See most recent [employer] notes. Mental Status: NT. See most recent [employer] notes. Pain: NT. See most recent [employer] notes. Vital Signs: NT. See most recent [employer] notes. ROM: Right Upper Extremity: ? Shoulder Flexion WFL. Shoulder abduction WFL. Elbow flexion WFL. Wrist flexion WFL. Functional opening and closing of hand WFL. Left Upper Extremity:? Shoulder Flexion WFL. Shoulder abduction WFL. Elbow flexion WFL. Wrist flexion WFL. Functional opening and closing of hand WFL. Right Lower Extremity: Hip flexion WFL. Hip abduction WFL. Knee flexion WFL. Ankle dorsiflexion WFL. Ankle plantarflexion WFL. Left Lower Extremity: Hip flexion WFL. Hip abduction WFL. Knee flexion WFL. Ankle dorsiflexion WFL. Ankle plantarflexion WFL. Strength: Right Upper Extremity: Shoulder flexors 4-/5. Shoulder abductors 4-/5. Elbow flexors 4-/5. Elbow extensors 4-/5. Heating Element Builder strong. Left Upper Extremity: Shoulder flexors 3+/5. Shoulder abductors 3+/5. Elbow flexors 3+/5. Elbow extensors 3+/5. Heating Element Builder strong. Right Lower Extremity: Hip flexors 4/5. Hip abductors 4/5. Knee flexors 4/5. Knee extensors 4/5. Ankle dorsiflexors 4/5. Ankle plantarflexors 4/5. Left Lower Extremity: Hip flexors 4-/5. Hip abductors 4-/5. Knee flexors 4-/5. Knee extensors 4-/5. Ankle dorsiflexors 4-/5. Ankle plantarflexors 4-/5. Bed Mobility/Transfers: Supine to sit standby assist Sit to stand standby assist Stand to sit standby assist Bed to bedside commode standby assist Bedside commode to bed standby assist Bed to reclining standby assist Reclining chair to bed standby assist Gait: Instructed patient with level surface ambulation of 100 feet requiring stand by assist. Valentine decreased. Step height decreased. Step length decreased. Balance: Static Sitting: Good Dynamic Sitting: Good Static Standing: Fair Dynamic Standing: Fair Assessment: Low endurance and gets short of breat heasily,? needs frequent rests.? On palliative care,? activity as tolerated only.? Still wants to go home with daughter,? refusing SNF placement. Patient presents with clinical signs and symptoms consistent with current/admitting diagnoses that have resulted to mobility limitations, gait instability, generalized weakness, and overall ADL decline as demonstrated by the following impairment level findings: 1.? Decreased strength to B UE/LE major muscle groups 2.? Impaired sitting/standing balance 3.? Impaired activity tolerance 4.? Shortness of breath Impairments are contributing to the following functional limitations: 1.? Decline in bed mobility skills 2.? Decline in transfer skills 3.? Difficulty with ambulation without assistive device and physical assistance 4.? Increased completion time for mobility ADL performance 5.? Increased risk for falls Goals: Goals X1 week 1. Supine-Sit independent NOT MET 2. Sit-Supine independent NOT MET 3. Sit-Stand independent NOT MET 4. Stand-Sit independent with FWW NOT MET 5. Bed-Chair independent with FWW NOT MET 6. Chair-Bed independent with FWW NOT MET 7. Independent gait on level surface with use of FWW for at least 100 feet without report of pain nor dyspnea NOT MET 8. Independent stair negotiation while holding onto B rails for at least 5 steps without report of pain nor dyspnea NOT MET 9. Independent with home exercise program NOT MET 10. Good static and dynamic standing balance/tolerance NOT MET DISCHARGE RECOMMENDATIONS: [] ? Home with no services [] [] ? Home with services [specify] [] ? Home with outpatient PT [] [] ? SNF for continued rehabilitation [] [] ? Penitentiary Care [] [] ? SNF versus LTC based on ability to participate and progress [] [X] SNF vs. PT based on patient's progress towards goals TREATMENT CODE/TIME: MI Thank you for the opportunity to participate in the care of this patient. Sayda Yan PT, DPT, CLT [facility] [place], [place]
== END 2022-05-24 14:28 | disposition home health service (06) | DRG 871 ==
LOC: ER 19:25 → MS 20:03 → ICU 05-18 12:36 → MS 05-21 18:18
PROVIDERS: Family Medicine; Nurse Practitioner Acute Care; Admitting Provider Internal Medicine; Emergency Provider Emergency Medicine; PCP Family Medicine; Visit Provider Internal Medicine
DX: A41.9 Sepsis, unspecified organism (principal); I50.33 Acute on chronic diastolic (congestive) heart failure; J12.1 Respiratory syncytial virus pneumonia; J96.21 Acute and chronic respiratory failure with hypoxia; J15.9 Unspecified bacterial pneumonia; I48.20 Chronic atrial fibrillation, unspecified; J44.1 Chronic obstructive pulmonary disease with (acute) exacerbation; K51.20 Ulcerative (chronic) proctitis without complications; I47.1 Supraventricular tachycardia; N39.0 Urinary tract infection, site not specified; J44.0 Chronic obstructive pulmonary disease with (acute) lower respiratory infection; K55.9 Vascular disorder of intestine, unspecified; E87.6 Hypokalemia; H10.30 Unspecified acute conjunctivitis, unspecified eye; R41.89 Other symptoms and signs involving cognitive functions and awareness; R63.4 Abnormal weight loss; Z68.27 Body mass index [BMI] 27.0-27.9, adult; R00.1 Bradycardia, unspecified; Z66 Do not resuscitate; I27.20 Pulmonary hypertension, unspecified; E78.5 Hyperlipidemia, unspecified; F41.9 Anxiety disorder, unspecified; I25.10 Atherosclerotic heart disease of native coronary artery without angina pectoris; K75.81 Nonalcoholic steatohepatitis (NASH); I70.90 Unspecified atherosclerosis; R11.2 Nausea with vomiting, unspecified; R94.31 Abnormal electrocardiogram [ECG] [EKG]; Z87.891 Personal history of nicotine dependence; Z86.73 Personal history of transient ischemic attack (TIA), and cerebral infarction without residual deficits; K44.9 Diaphragmatic hernia without obstruction or gangrene; K63.89 Other specified diseases of intestine; K52.9 Noninfective gastroenteritis and colitis, unspecified; G24.01 Drug induced subacute dyskinesia; T43.595A Adverse effect of other antipsychotics and neuroleptics, initial encounter; I08.3 Combined rheumatic disorders of mitral, aortic and tricuspid valves; I11.0 Hypertensive heart disease with heart failure
CPT/HCPCS: 36410; 36415; 74177; 76604; 80048; 80053; 80076; 80173; 82805; 84145; 87040; 87081; 87449; 87635; 87637; 93005; 93308; 94618; 94640; 96374; 96375; 97162; 97530; 99222; 99285; 36600; 71045; 71260; 74018; 74019; 80162; 80202; 81003; 81015; 83605; 83735; 83880; 84484; 85025; 85730; 86140; 87070; 87086; 87205; 87899; 93010; 93306; 94664; 94667; 94668; 94760; 99223; 99232; 99233; 99239; 99291; J0131; J1100; J1160; J1630; J1720; J1940; J1941; J2405; J7512; J7614; J7620; J7644

== ENCOUNTER 2022-05-31 16:27 | Outpatient (REF) | payer MEDICARE, SELFPAY ==
[2022-05-31 19:42] LABS: Anion Gap 8.9 mmol/L (3-11); BUN 14 mg/dL (7-18); CO2 29.1 mmol/L (21.0-32.0); CREATININE 0.8 mg/dL (0.55-1.02); Calcium 8.7 mg/dL (8.5-10.1); Chloride 97 mmol/L (98-107); Estimated GFR 73.52 (mL/min/1.73m2); Glucose 115 mg/dL (74-106); Potassium 3.7 mmol/L (3.5-5.1); Sodium 135 mmol/L (136-145)
== END 2022-05-31 16:28 | disposition home or self-care (01) ==
LOC: LBN 16:27
PROVIDERS: PCP Family Medicine; Visit Provider Family Medicine
DX: E87.6 Hypokalemia (principal); K75.81 Nonalcoholic steatohepatitis (NASH)
CPT/HCPCS: 80048

== ENCOUNTER 2022-06-04 11:04 | Inpatient (IN) | payer MEDICARE, SELFPAY ==
[2022-06-04] VITALS (9 sets, daily range): BP systolic 102–126; BP diastolic 63–73; PULSE 67–134; RESP 18–22; TEMP 36.6–37; O2SAT 90–93
--- NOTE | 2022-06-04 | DI.RAD_ITS ---
Exam(s) XR ABDOMEN FLAT PLATE EXAM: 2D digital imaging was performed. CLINICAL HISTORY: NG Placement. COMPARISON: CT CT ABDOMEN PELVIS W from 06/04/2022 TECHNIQUE: Supine views of the abdomen was performed. Three images were obtained. FINDINGS: LUNG BASES: Clear. BOWEL GAS PATTERN: There are dilated loops of small bowel again seen suspicious for small bowel obstr uction. FREE AIR: None. CALCIFICATIONS: No radiopaque calcifications. OSSEOUS STRUCTURES: Normal for age. OTHER FINDINGS: There is a endovascular stent in the distal aorta extending into the left common annabella c artery. There has been interval placement of a nasogastric tube. The tip is below the hemidiaphra gm in good position in the stomach. There is residual contrast in the renal collecting system and ur inary bladder from the patient's CT scan performed the same day. Urinary bladder diverticula are see n. IMPRESSION: 1. Findings consistent with a small-bowel obstruction. 2. Interval placement of a nasogastric tube. The tip is in good position within the stomach. DATA REPOSITORY: RADIATION DOSE DELIVERED:
--- NOTE | 2022-06-04 11:45 | DI.CT_ITS ---
Exam(s) CT ABDOMEN PELVIS W EXAM: CT ABDOMEN PELVIS W CLINICAL HISTORY: nasuea vomiting, abd distension TECHNIQUE: Imaging Protocol: Axial computed tomography images with coronal and sagittal reformatted images were created and reviewed CONTRAST MATERIAL: Intravenous: Omnipaque 350 Contrast volume:100 mL Oral: No COMPARISON: CT CT CHEST/ABD/PEL W from 05/18/2022 FINDINGS: ABDOMEN: Lung Bases: There is cardiomegaly. There is a small pericardial effusion. Mitral valve calcificatio n is present. Fibrotic changes are seen in the lung bases. Liver: Normal density. No measurable mass. Portal, Superior Mesenteric, and Splenic Veins: Unremarkable. Gallbladder and Biliary Tract: The appearance of the gallbladder is unchanged. There is contraction of the distal gallbladder with apparent thickening of the wall of the distal gallbladder. There are multiple stones seen in the proximal gallbladder. There is no biliary ductal dilatation. Pancreas: Normal density, no abnormal calcifications or inflammatory process. Spleen: Normal. Adrenals: There are stable bilateral adrenal nodules. Kidneys: Normal size, contour and axis. No radiodense stones or obstructive uropathy. No masses seen. Abdominal Aorta: There is an aorta iliac stent in place. There is no evidence of extravasation of co ntrast into the [place] abdominal aortic aneurysm. There is extensive atherosclerosis present. Bowel: There are dilated loops of small bowel predominantly in the upper and left abdomen. The bowel in the right lower quadrant is of normal caliber. The findings are suspicious for bowel obstruction . No evidence of appendicitis. No bowel wall thickening is seen. Peritoneal Cavity: There is a small amount of pelvic ascites. No free air. Lymph Nodes: Within normal limits. Bones: Within normal limits for the patient's age. Soft Tissues: Unremarkable. PELVIS: Bladder: There is diffuse thickening of the wall of the urinary bladder. There are few bladder diver ticula noted. There is a small amount of air in the dependent portion of the urinary bladder. There is infiltration of the surrounding soft tissues. Reproductive Organs: Unremarkable as visualized. Lymph Nodes: Within normal limits. Bones: Within normal limits for the patient's age. IMPRESSION: 1. Findings suspicious for small bowel obstruction. 2. Small amount of abdominal pelvic ascites. 3. Diffuse thickening of the wall of the urinary bladder with bladder diverticula. There is also sma ll focus of air in the dependent portion of the urinary bladder. Inflammatory or infectious cystitis should be considered. 4. Stable appearance of the gallbladder with cholelithiasis. 5. Findings were discussed with Dr. Okeefe at 2:25 p.m. on 06/04/2022. RADIATION DOSE DELIVERED: 834.35mGy.cm Total DLP DATA REPOSITORY: All CT scans at this facility are submitted to the National Radiology Data Registry (NRDR) Dose Index Registry (DIR) with the [employer] (ACR). RADIATION OPTIMIZATION: All CT scans at this facility use at least one of these dose optimization te chniques: automated exposure control; mA and/or kV adjustment per patient size (includes targeted exa ms where dose is matched to clinical indication); or iterative reconstruction.
[2022-06-04] MEDS: Normal Saline 500 ML 1000 ML IV (12:41)
[2022-06-04] MEDS: Ondansetron 4 MG/2 ML VIAL IVP (12:42)
[2022-06-04 12:44] LABS: Abs Immature Grans 0.07 10^3/uL (0.0-0.06); Absolute Basophil Count 0.03 10^3/uL (0.0-0.2); Absolute Eosinophil Count 0.04 10^3/uL (0.0-0.7); Absolute Lymphocyte Count 1.28 10^3/uL (1.2-3.4); Absolute Neutrophil Count 12.19 10^3/uL (1.2-6.7); Basophils % 0.2; Eosinophils % 0.3; HCT 43.2 % (36.0-46.0); Immature Grans % 0.5; Lymphocytes % 8.7; MCH 29.8 pg (27.0-33.0); MCHC 32.4 % (32.0-36.0); MCV 92 fL (80-95); MPV 11.2 fL (8.0-11.0); Monocytes % 7.5; Neutrophils % 82.8; Platelet Count 213 10^3/uL (130-400); RDW 13.7 % (11.7-14.6); RDW-SD 46.7 fL; WBC 14.72 10^3/uL (4.4-10.8)
--- NOTE | 2022-06-04 12:44 | ED.GENADUL_ITS ---
Discharge Plan Disposition Patient Disposition: Admit to [facility] Discharge Details Chief Complaint: Nausea/Vomit/Diar Clinical Impression: SBO (small bowel obstruction) Primary Care Provider: Carolin Salinas ED Provider: Sekou Okeefe Home Meds and New Rx's Prescriptions: No Action magnesium oxide 400 mg (241.3 mg magnesium) tablet 400 mg PO DAILY Qty: 90 5RF fluticasone propionate 220 mcg/actuation HFA aerosol inhaler 1 puff IH BID Qty: 12 12RF Patient Comments: not taking potassium chloride [Klor-Con M20] 20 mEq tablet,ER particles/crystals 20 meq PO BID Qty: 180 5RF risperidone [Risperdal] 2 mg tablet 2 mg PO HS Qty: 90 5RF sertraline 50 mg tablet 50 mg PO DAILY Qty: 90 5RF trazodone 100 mg tablet 100 mg PO HS Qty: 90 5RF Spiriva with HandiHaler 18 mcg capsule, w/inhalation device 1 cap inhalation DAILY Qty: 90 3RF Patient Comments: not taking Rx Instructions: puncture 1 cap using device; one dose = 2 inhalations Lactobacillus acidophilus 1 EACH tablet 1 ea PO BID Immodium 1 - 2 cap PO PRN Patient Comments: not taking aspirin [Aspir-81] 81 MG tablet,delayed release (DR/EC) 81 mg PO DAILY Eliquis 5 mg tablet 5 mg PO BID Qty: 180 5RF lorazepam 0.5 mg tablet 0.5 mg PO TID PRN Qty: 270 4RF albuterol sulfate 90 mcg/actuation HFA aerosol inhaler 2 puff IH Q4H PRN (Reason: shortness of breath) Qty: 18 6RF Patient Comments: not taking digoxin 125 mcg (0.125 mg) tablet 125 mcg PO DAILY Qty: 90 5RF fluticasone propion-salmeterol [Advair Diskus] 500-50 mcg/dose blister with device 1 inh inhalation BID Qty: 180 5RF furosemide 20 mg tablet 20 mg PO DAILY Qty: 90 5RF Rx Instructions: hold for 3 days then return to 20 mg acetaminophen [Tylenol] 325 MG tablet 650 mg Q8H PRN PRN prednisone 10 mg tablet 10 mg PO DIRECTED Qty: 6 0RF Patient Comments: not taking Rx Instructions: 20 mg daily x 2 days; 10 mg daily x 2 day - stop fluticasone propion-salmeterol [Advair Diskus] 500-50 mcg/dose blister with device 1 inh INHALATION BID Patient Comments: INHALE 1 PUFF BY MOUTH TWO TIMES A DAY Medical Decision Making 81-year-old female history of COPD recent mission for RSV and COPD exacerbation, history of CHF, multiple abdominal surgeries including hemicolectomy and boris endectomy presents with abdominal distention nausea vomiting and no bowel movement today. Abdomen is distended slightly tympanic nontense nonperitoneal. No active vomiting. Tachycardic on arrival. Appears slightly dry. Given history and physical must consider small bowel obstruction must also consider enteritis versus colitis versus diverticulitis versus cholecystitis versus symptomatic hiatal hernia versus viral syndrome. Screening labs imaging fluids antiemetics. 15: 12 evidence of small bowel obstruction. NG tube placed at bedside 500 cc of yellow-brown liquid gastric contents evacuated thus far. Patient is n.p.o., hemodynamically stable nonperitoneal. Discussed case with Dr. Dorman of general surgery who is familiar with patient, upon chart review and discussion with surgery it appears the patient has been reluctant in the past to have surgical intervention, patient be admitted to medical service for admission with close consultation and management by surgical team. HPI General Date/Time Provider Initiated Documentation: 06/04/22 11:31 . HPI Narrative: 81-year-old female history of COPD CHF, A-fib, presents with nausea vomiting multiple episodes of brown emesis this morning, no bowel movement today. History of abdominal surgeries in the past. Nausea vomiting have resolved no chest pain or shortness of breath. Recent admission for RSV infection and COPD exacerbation. Related Data Home Medications Medication Instructions Recorded Confirmed acetaminophen 325 mg tablet 650 mg Q8H PRN PRN 08/10/14 06/04/22 (Tylenol) Lactobacillus acidophilus 1 1 ea PO BID 03/11/15 06/04/22 billion cell tablet Immodium 1 - 2 cap PO PRN 06/12/15 05/15/22 aspirin 81 mg tablet,delayed 81 mg PO DAILY 11/16/16 06/04/22 release (Aspir-) magnesium oxide 400 mg (241.3 mg 400 mg PO DAILY #90 tabs 06/11/21 06/04/22 magnesium) tablet Spiriva with HandiHaler 18 mcg and 1 cap inhalation DAILY #90 10/13/21 05/15/22 inhalation capsules (tiotropium inhalations bromide) fluticasone propionate 220 1 puff inhalation BID #12 grams 12/10/21 05/15/22 mcg/actuation HFA aerosol inhaler potassium chloride 20 mEq 20 meq PO BID #180 tabs 12/10/21 06/04/22 tablet,extended release(part/cryst) (Klor-Con M) risperidone 2 mg tablet (Risperdal) 2 mg PO HS #90 tabs 12/10/21 06/04/22 sertraline 50 mg tablet 50 mg PO DAILY #90 tabs 12/10/21 06/04/22 trazodone 100 mg tablet 100 mg PO HS #90 tabs 12/10/21 06/04/22 apixaban 5 mg tablet (Eliquis) 5 mg PO BID #180 tabs 01/11/22 06/04/22 lorazepam 0.5 mg tablet 0.5 mg PO TID PRN anxiety #270 tabs 01/25/22 06/04/22 albuterol sulfate 90 mcg/actuation 2 puff inhalation Q4H PRN 02/02/22 05/15/22 aerosol inhaler shortness of breath #18 grams digoxin 125 mcg (0.125 mg) tablet 125 mcg PO DAILY #90 tabs 04/19/22 06/04/22 prednisone 10 mg tablet 10 mg PO DIRECTED #6 tabs 05/24/22 fluticasone 500 mcg-salmeterol 50 1 inh inhalation BID #180 ea 05/25/22 06/04/22 mcg/dose blistr powdr for inhalation (Advair Diskus) furosemide 20 mg tablet 20 mg PO DAILY #90 tabs 05/31/22 06/04/22 fluticasone 500 mcg-salmeterol 50 1 inh inhalation BID 06/04/22 06/04/22 mcg/dose blistr powdr for inhalation (Advair Diskus) Previous Rx's Medication Instructions Recorded magnesium oxide 400 mg (241.3 mg 400 mg PO DAILY #90 tabs 06/11/21 magnesium) tablet Spiriva with HandiHaler 18 mcg and 1 cap inhalation DAILY #90 10/13/21 inhalation capsules (tiotropium inhalations bromide) fluticasone propionate 220 1 puff inhalation BID #12 grams 12/10/21 mcg/actuation HFA aerosol inhaler potassium chloride 20 mEq 20 meq PO BID #180 tabs 12/10/21 tablet,extended release(part/cryst) (Klor-Con M) risperidone 2 mg tablet (Risperdal) 2 mg PO HS #90 tabs 12/10/21 sertraline 50 mg tablet 50 mg PO DAILY #90 tabs 12/10/21 trazodone 100 mg tablet 100 mg PO HS #90 tabs 12/10/21 apixaban 5 mg tablet (Eliquis) 5 mg PO BID #180 tabs 01/11/22 lorazepam 0.5 mg tablet 0.5 mg PO TID PRN anxiety #270 tabs 01/25/22 albuterol sulfate 90 mcg/actuation 2 puff inhalation Q4H PRN 02/02/22 aerosol inhaler shortness of breath #18 grams digoxin 125 mcg (0.125 mg) tablet 125 mcg PO DAILY #90 tabs 04/19/22 prednisone 10 mg tablet 10 mg PO DIRECTED #6 tabs 05/24/22 fluticasone 500 mcg-salmeterol 50 1 inh inhalation BID #180 ea 05/25/22 mcg/dose blistr powdr for inhalation (Advair Diskus) furosemide 20 mg tablet 20 mg PO DAILY #90 tabs 05/31/22 Allergies Allergy/AdvReac Type Severity Reaction Status Date / Time pneumococcal 7-valent Allergy Mild Local Verified 05/15/22 15:49 conjugate to reaction [From Prevnar] amoxicillin trihydrate AdvReac Intermediate VOMITING Verified 05/15/22 15:49 [From Augmentin] potassium clavulanate AdvReac Intermediate VOMITING Verified 05/15/22 15:49 [From Augmentin] General Stated Complaint: Nausea/Vomit/Diar DEONNA: 3 Review of Systems Narrative: Review of Systems Constitutional: negative Eyes: negative ENT: negative Cardiovascular: negative Respiratory: negative Gastrointestinal: Nausea vomiting : negative Musculoskeletal: negative Skin: negative Neurologic: negative Psych: negative PFSH All Active Problems (Updated 06/04/22 @ 15:14 by Sekou Okeefe MD) SBO (small bowel obstruction) (Acute) Involuntary movements (Acute) Chronic heart failure with preserved ejection fraction (HFpEF) (Acute) Acute and chronic respiratory failure with hypoxia (Acute) Acute on chronic diastolic (congestive) heart failure (Acute) Atrial fibrillation (Chronic) Tubular adenoma of colon (Chronic 03/04/14) 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 plaque per U/[place] Aminah onychomycosis Cognitive change Complete edentulism, unspecified Congestive heart failure Conjunctivitis COPD (chronic obstructive pulmonary disease) with emphysema CVD (cardiovascular disease) Dependence on supplemental oxygen Depression a. with psychotic features Diarrhea (11/19/14) Discharge planning issues 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 02/18-09/19, normal metanephrines, normal dexamethasone suppression. 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 hypokalemia b. 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) Palliative care patient Palpitations 08/26/14; FREQ PVC BY HOLTER Palpitations Right hip pain Right pontine CVA [facility]-01/30/16; 8X5 mm RUQ abdominal pain Seborrheic keratosis (01/01/16) punch/shave biopsy skin of left arm Seborrheic keratosis (01/01/16) Shortness of breath (10/14/16) SVT (supraventricular tachycardia) (09/15/14) Tachycardia Urinary frequency (08/21/15) Vascular insufficiency of intestine (06/12/15) Weight loss (04/02/14) Weight loss, abnormal (~06/11/21) 30# in last yr Surgical History Appendectomy Biopsy, Soft Tissue (01/01/16) Punch/shave biospy of skin of left arm, seborrheic keratosis Colectomy (09/18/14) DR. GRAJEDA Hemicolectomy [facility]; 09/15/14; RIGHT History of bilateral ligation of fallopian tubes History of partial colectomy 09/15/14 right hemicolectomy w/ileocolic anastomosis History of partial surgical removal of colon (09/15/14) Ligation of fallopian tube S/P AAA repair S/P tubal ligation Status post appendectomy Family History Mother Essential hypertension Alzheimer's disease Father Heart disease Breast cancer Prostate cancer Sister Myocardial infarction Sister Myocardial infarction Brother Cancer Sister No problems noted. Sister No problems noted. Brother Substance abuse Brother Substance abuse Brother Substance abuse Cancer Son No problems noted. Daughter No problems noted. Social History Smoking/Tobacco Use Status: Former Tobacco Use Smoking risk assessment performed?: Yes Alcohol Intake: never Drug use: Never Substance use type: does not use Household members: other Details: 4 Pets and animals: Yes Pets and animals: cat(s) and dog(s) Current gender identity: decline to answer What is your relationship status?: refused to answer How often do you talk on the phone with friends or family?: decline to answer How often do you get together with friends or relatives?: decline to answer How often do you attend buddhist or yarsanism services?: decline to answer Do you belong to any clubs or organized social groups?: decline to answer Panel score (0-1 are the most socially isolated patients): 0 What type of physical activity do you participate in: none Lelo/Baptist: No preference Special lelo needs: No Do you feel safe at home: Yes Do you feel safe in your relationship?: Yes Exam Narrative Exam Narrative: Physical Examination General: alert, awake, cooperative, resting comfortably, no acute distress HEENT: normocephalic, atraumatic; PERRL, EOM intact, conjunctiva normal; no nasal discharge; slight drying of oral mucosa Neck: supple, trachea midline; full ROM Chest: normal to inspection Respiratory: normal respiratory effort, speaking in full sentences, clear to auscultation, no wheezing, rales or rhonchi Cardiac: regular rate, regular rhythm, S1S2 intact, no murmurs rubs or gallops GI: abdomen soft, non-tender, mildly distended; no palpable mass or hepatosplenomegaly Skin: no lesions, rashes or trauma appreciated Neuro: AAOx3, normal speech, moving all extremities Psych: Appropriate mood and affect Course Vital Signs Vital signs: Vital Signs Temperature 36.9 C 06/04/22 11:19 Pulse 101 H 06/04/22 11:19 Respiratory Rate 22 06/04/22 11:19 Blood Pressure 107/69 06/04/22 11:19 Pulse Oximetry 92 06/04/22 11:19 Temperature 36.9 C 06/04/22 11:19 Temperature Source Oral 06/04/22 11:19 Pulse 101 H 06/04/22 11:19 Respiratory Rate 22 06/04/22 11:19 Respiratory Effort Short of Breath 06/04/22 11:29 Blood Pressure 107/69 06/04/22 11:19 Blood Pressure Position Sitting 06/04/22 11:19 Pulse Oximetry 92 06/04/22 11:19 Oxygen Delivery Method Room Air 06/04/22 11:19 Oxygen Flow Rate 0 06/04/22 11:19
[2022-06-04 13:08] LABS: ALT 19 U/L (14-59); AST 16 U/L (15-37); Alkaline Phosphatase 78 U/L (46-116); Anion Gap 6.2 mmol/L (3-11); BUN 13 mg/dL (7-18); Bilirubin, Total 1.3 mg/dL (0.2-1.0); CO2 31.8 mmol/L (21.0-32.0); Chloride 97 mmol/L (98-107); Estimated GFR 56.25 (mL/min/1.73m2); Glucose 122 mg/dL (74-106); Lipase 25 U/L (16-77); Potassium 4.3 mmol/L (3.5-5.1); Sodium 135 mmol/L (136-145); Total Protein 6.6 g/dL (6.4-8.2)
[2022-06-04] MEDS: Omnipaque 350 MG/ML 100 ML BTL IJ (13:32)
[2022-06-04] MEDS: Normal Saline Flush 10 ML SYR IVP ×3 (13:33→22:33)
--- NOTE | 2022-06-04 14:30 | DI.RAD_ITS ---
Exam(s) XR PORTABLE CHEST AP EXAM: XR PORTABLE CHEST AP CLINICAL HISTORY: NG placement TECHNIQUE: 2D digital imaging was performed of the chest. One images were obtained. AP views were obtained. COMPARISON: No exams were available for comparison FINDINGS: MEDIASTINUM: Normal. HEART: Cardiomegaly. PULMONARY VASCULATURE: Normal. LUNGS: Clear. PLEURAL SPACE: No pleural effusion or pneumothorax. BONE:Within normal limits for the patient's age. OTHER FINDINGS:The nasogastric tube tip is below the diaphragm in the stomach. The tip is off the ed ge of the film. IMPRESSION: The nasogastric tube tip is off the edge of the film. But is below the diaphragm in the stomach. DATA REPOSITORY: RADIATION DOSE DELIVERED:
[2022-06-04 15:13] LABS: Lab Add On Test DONE
--- NOTE | 2022-06-04 15:21 | W.SURGCON ---
Date of service: 06/04/22 Time of Service: 16:30 Assessment and Plan Assessment and plan (1) SBO (small bowel obstruction): Status: Acute Assessment and plan: - Patient going to the surgical service and has a history of bowel obstruction. 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 -If she fails/develops peritonitis, she would need to go down to [facility] for surgery. She is not a candidate for surgery At [facility] -At this point we will continue with medical management. We will continue to monitor her. NGT-compression GI prophylaxis-Pepcid twice daily Fluid support DVT prophylaxis Pulmonary toilet-Acapella (history of COPD). Medical management Encourage walking Consider PICC and TPN. Patient was discharged from the hospital on 315. She was in the hospital 10 days with previous bowel obstruction.. Her albumin is 9. She will need to be monitored closely for her protein status. -She has protein replete and relatively nonmobile so she is not high risk for breakdown. 60 mins spent with the patient today. (2) Chronic heart failure with preserved ejection fraction (HFpEF): Status: Acute (3) Atrial fibrillation: Status: Chronic Qualifiers: Atrial fibrillation type: unspecified Qualified Code(s): I48.91 - Unspecified atrial fibrillation (4) Nonspecific ulcerative proctitis: Status: Chronic (5) Anxiety: Status: Chronic (6) Coronary disease: Status: Chronic (7) COPD (chronic obstructive pulmonary disease): Status: Chronic (8) Hypertension: Status: Chronic Qualifiers: Hypertension type: essential hypertension Qualified Code(s): I10 - Essential (primary) hypertension (9) SCHAEFFER (nonalcoholic steatohepatitis): Status: Chronic (10) H/O inflammatory bowel disease: Status: Chronic (11) COPD (chronic obstructive pulmonary disease) with emphysema: (12) CVD (cardiovascular disease): (13) Atherosclerosis: (14) Hiatus hernia syndrome: (15) History of tobacco use: (16) Hyperlipidemia: (17) Palpitations: History of Present Illness Narrative: Patient was discharged on 315 from [facility] to home with RSV and a small bowel obstruction. She was at home and tolerating a soft diet. Her last bowel movement was yesterday and it was normal per the patient. She is not on antibiotics. She woke up today and started vomiting and having more abdominal pain and abdominal distention and came into the ER. CT as noted. She has not vomited any blood. She has not noted any blood in her stools. She is on a tapering dose of prednisone. She is on apixaban. Past medical history as noted. She has had a appendectomy and a right hemicolectomy, which I believe was done for ischemia. She has a stent in the aortic arch and the abdominal aorta. She has a stent in her celiac axis/SMA. She is a high risk for surgery and any further surgeries would need to happen at [facility]. Patient does understand this. At this time patient does not want any surgeries. She does wish to transition to comfort cares, but on Tuesday Consults Consult date: 06/04/22 Review of Systems Narrative: Patient denies any chest pain. She denies any lower extremity edema. She denies any more shortness of breath than usual. No fevers or productive cough. New onset nausea vomiting and abdominal pain. She denies vomiting blood. 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 plaque per U/S Aminah onychomycosis Cognitive change Complete edentulism, unspecified Congestive heart failure Conjunctivitis COPD (chronic obstructive pulmonary disease) with emphysema CVD (cardiovascular disease) Dependence on supplemental oxygen Depression a. with psychotic features Diarrhea (11/19/14) Discharge planning issues 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 02/18-09/19, normal metanephrines, normal dexamethasone suppression. 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 hypokalemia b. 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) Palliative care patient Palpitations 08/26/14; FREQ PVC BY HOLTER Palpitations Right hip pain Right pontine CVA [facility]-01/30/16; 8X5 mm RUQ abdominal pain Seborrheic keratosis (01/01/16) punch/shave biopsy skin of left arm Seborrheic keratosis (01/01/16) Shortness of breath (10/14/16) SVT (supraventricular tachycardia) (09/15/14) Tachycardia Urinary frequency (08/21/15) Vascular insufficiency of intestine (06/12/15) Weight loss (04/02/14) Weight loss, abnormal (~06/11/21) 30# in last yr Surgical History Appendectomy Biopsy, Soft Tissue (01/01/16) Punch/shave biospy of skin of left arm, seborrheic keratosis Colectomy (09/18/14) DR. GRAJEDA Hemicolectomy [facility]; 09/15/14; RIGHT History of bilateral ligation of fallopian tubes History of partial colectomy 09/15/14 right hemicolectomy w/ileocolic anastomosis History of partial surgical removal of colon (09/15/14) Ligation of fallopian tube S/P AAA repair S/P tubal ligation Status post appendectomy Family History Mother Essential hypertension Alzheimer's disease Father Heart disease Breast cancer Prostate cancer Sister Myocardial infarction Sister Myocardial infarction Brother Cancer Sister No problems noted. Sister No problems noted. Brother Substance abuse Brother Substance abuse Brother Substance abuse Cancer Son No problems noted. Daughter No problems noted. Social History Smoking/Tobacco Use Status: Former Tobacco Use Smoking risk assessment performed?: Yes Alcohol Intake: never Drug use: Never Substance use type: does not use Household members: other Details: 4 Pets and animals: Yes Pets and animals: cat(s) and dog(s) Current gender identity: decline to answer What is your relationship status?: refused to answer How often do you talk on the phone with friends or family?: decline to answer How often do you get together with friends or relatives?: decline to answer How often do you attend zoroastrian or latter-day services?: decline to answer Do you belong to any clubs or organized social groups?: decline to answer Panel score (0-1 are the most socially isolated patients): 0 What type of physical activity do you participate in: none Lelo/Spiritism: No preference Special lelo needs: No Do you feel safe at home: Yes Do you feel safe in your relationship?: Yes Exam Narrative Exam Narrative: PHYSICAL EXAM GENERAL APPEARANCE: Alert, , oriented, x 3,? in no acute distress HEAD, EYES, EARS, NECK, THROAT: Head is normocephalic, pupils equal, round, reactive to light and accommodation, ocular movement intact, sclera clear and no jaundice. NECK: no lymphadenopathy.? Trachea midline.? Neck supple.? No JVD LUNGS: normal respiration/normal chest excursion. ?Clear to auscultation bilaterally. ?No wheeze. ?HEART: Chronic A-fib with rate controlled EXTREMITY: No edema or cyanosis.? no leg pain, redness, swelling.? ABDOMEN: soft and non-tender to palpation-he has an NG tube in and has had over a liter of output. No bowel sounds. Results Last Vital Signs Temp 36.9 C 06/04/22 11:19 Pulse 101 H 06/04/22 11:19 Resp 22 06/04/22 11:19 BP 107/69 03/24/23 11:19 Pulse Ox 92 06/04/22 11:19 Labs 06/04/22 12:26 06/04/22 12:26 Labs: Laboratory Results - last 24 hr 06/04/22 06/04/22 06/04/22 12:26 12:26 15:10 WBC 14.72 H RBC 4.70 Hgb 14.0 Hct 43.2 MCV 92 MCH 29.8 MCHC 32.4 RDW 13.7 Plt Count 213 MPV 11.2 H Immature Gran % 0.5 Neutrophils % 82.8 Lymphocytes % 8.7 Monocytes % 7.5 Eosinophils % 0.3 Basophils % 0.2 Nucleated RBC % 0.0 Absolute Neutrophils 12.19 H Absolute Lymphocytes 1.28 Absolute Monocytes 1.10 H Absolute Eosinophils 0.04 Absolute Basophils 0.03 Sodium 135 L Potassium 4.3 Chloride 97 L Carbon Dioxide 31.8 Anion Gap 6.2 BUN 13 Creatinine 1.0 Est GFR (CKD-EPI 2020) 56.25 Glucose 122 H Calcium 9.0 Total Bilirubin 1.3 H AST 16 ALT 19 Alkaline Phosphatase 78 Total Protein 6.6 Albumin 3.0 L Lipase 25 Add-On Test Request DONE
[2022-06-04 15:26] LABS: C-Reactive Protein 9.28 mg/dL (0.0-0.3)
--- NOTE | 2022-06-04 16:48 | NUR.NOTE ---
pt placed on intermittent suction
[2022-06-04 18:36] LABS: COVID-19 PCR Negative (Negative); Influenza A PCR Negative (Negative); Influenza B PCR Negative (Negative); RSV PCR Negative (Negative)
[2022-06-04 18:40] LABS: Source Nasopharynx
[2022-06-04] MEDS: Budesonide/Formoterol 160/4.5 6 GM 60 PUFF INH IH (19:29)
[2022-06-04] MEDS: Lactated Ringers 1,000 ML 50 ML IV (19:46)
[2022-06-04] MEDS: Metoprolol 5 MG/5 ML VIAL IVP (19:53)
[2022-06-04] MEDS: Apixaban 5 MG TAB NG (19:58)
[2022-06-04 20:04] LABS: Lab Add On Test DONE
[2022-06-04 20:55] LABS: Bilirubin Negative (Negative); Blood Small (Negative); Clarity Sl Cloudy (Clear); Glucose Negative (Negative); Ketones Negative (Negative); Leukocyte Esterase Trace (Negative); Nitrite Positive (Negative); Urobilinogen 0.2 mg/dL (Up to 0.2)
[2022-06-04 21:09] LABS: Digoxin 0.86 ng/mL (0.90-2.00)
[2022-06-04 21:10] LABS: Bacteria Many HPF (Negative); C & S Indicated? C&S Done As Ordered; Casts Negative LPF (Negative); Crystals Negative HPF (Negative); Epithelial Cells Few HPF (Negative); Mucus Negative (Negative); Other Cells Negative (Negative); WBC 20-50 HPF (0-5)
--- NOTE | 2022-06-04 21:14 | HPE_ITS ---
Date of service: 06/04/22 Time of Service: 21:14 Assessment and Plan Assessment and plan (1) SBO (small bowel obstruction): Status: Acute Assessment and plan: Her presentation and CT imaging is consistent with SBO. She denies history of SBO but she is high risk with several abdominal surgeries including hemicolectomy. I appreciate evaulation by Dr. Dorman. Deb is not a candidate for surgery her e, and she prefers to avoid surgery. 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 She is improving with NG tube. Continue NPO overnight, conservative IV fluids given h/o HFpEF. (2) Cystitis: Status: Acute Assessment and plan: She is not complaining of UTI symptoms, however imaging strongly suggests cys titis and urine is consistent. She also has an elevated WBC and CRP (though this could be SBO related). Given this, will go ahead and treat with ceftriaxone. (3) Chronic heart failure with preserved ejection fraction (HFpEF): Status: Acute Assessment and plan: Euvolemic, no evidence of active CHF. (4) COPD (chronic obstructive pulmonary disease): Status: Chronic Assessment and plan: Stable at baseline, continue outpatient inhalers (5) Atrial fibrillation: Status: Chronic Assessment and plan: continue digoxin for rate, levels pending. Cotninue apixaban for stroke prophylaxis. 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 Stable now. Continue outpatient medication (via NG for now) (7) DVT prophylaxis: Assessment and plan: She is on apixaban (8) Discharge planning issues: Status: Acute Assessment and plan: Stable on medical floor. She confirms DNR/DNI status. History of Present Illness History of Present Illness Chief Complaint: abdominal pain and vomiting Narrative: 81 year old female with history of mulitple abdominal surgeries including AAA repair, hemicolectomy for ischemic bowel, and apendectomy, COPD with recent admission for exacerbation associated with RSV, who presented to the emergency room with 2 days of progressive lower abdominal pain and vomiting. She states it started with crampy pain on Tuesday, 2 days prior to admission. Mid abdomen to the right side and right lower quadrant, moderate to severe intensity. She feels bloated and more firm there. She started vomiting later that same day. Pain improves with vomiting but then comes back. No fevers. She denies any changes in diet, new medication, or other factors that may have caused the pain to start. Her last BM was the morning prior to the pain starting on Tuesday. She states she has never had this problem in the past, though she did have a hard time remembering her own medical history such as her previous surgeries. Deb had an NG tube placed and was seen by surgery already. She is no longer vomiting. She is urinating. Review of Systems Constitutional Constitutional: Reports anorexia, Denies chills, Denies fever(s), Denies headache(s), Reports lethargy and Denies weakness Eyes Eyes: Denies change in vision and Denies irritation ENT Ears, Nose, Mouth, and Throat: Denies dizziness, Denies headache(s), Denies nasal congestion, Denies nasal discharge and Denies sore throat Cardiovascular Cardiovascular: Denies chest pain, Denies palpitations, Reports dyspnea (about baseline, using inhalers) and Denies orthopnea Respiratory Respiratory: Denies cough, Denies excessive phlegm production, Reports dyspnea (about baseline, using inhalers) and Denies wheezing Gastrointestinal Gastrointestinal: Reports as per HPI, Denies melena, Denies hematochezia, Denies diarrhea and Denies hematemesis Genitourinary Genitourinary: Denies hematuria and Denies dysuria Musculoskeletal Musculoskeletal: Denies arthralgias Integumentary/Breasts Skin/Breast: Denies rash and Denies skin ulcer Neurologic Neurologic: Denies dizziness, Denies headache(s), Denies sensory deficit and Denies weakness Psychiatric Psychiatric: Denies mood swings Endocrine Endocrine: Denies palpitations Hematologic/Lymphatic Hematologic/Lymphatic: Denies easy bleeding Allergic/Immunologic Allergic/Immunologic: Denies wheezing PFSH All Active Problems (Updated 06/04/22 @ 21:49 by Ben Bowers) Cystitis (Acute) Discharge planning issues (Acute) SBO (small bowel obstruction) (Acute) Involuntary movements (Acute) Chronic heart failure with preserved ejection fraction (HFpEF) (Acute) Atrial fibrillation (Chronic) Tubular adenoma of colon (Chronic 03/04/14) 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 plaque per U/[place] Aminah onychomycosis Cognitive change Complete edentulism, unspecified Congestive heart failure Conjunctivitis COPD (chronic obstructive pulmonary disease) with emphysema CVD (cardiovascular disease) Dependence on supplemental oxygen Depression a. with psychotic features Diarrhea (11/19/14) 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 02/18-09/19, normal metanephrines, normal dexamethasone suppression. 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 hypokalemia b. 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) Palliative care patient Palpitations 08/26/14; FREQ PVC BY HOLTER Palpitations Pulmonary hypertension Right hip pain Right pontine CVA [facility]-01/30/16; 8X5 mm RUQ abdominal pain Seborrheic keratosis (01/01/16) punch/shave biopsy skin of left arm Seborrheic keratosis (01/01/16) Shortness of breath (10/14/16) SVT (supraventricular tachycardia) (09/15/14) Tachycardia Urinary frequency (08/21/15) Vascular insufficiency of intestine (06/12/15) Weight loss (04/02/14) Weight loss, abnormal (~06/11/21) 30# in last yr Surgical History Appendectomy Biopsy, Soft Tissue (01/01/16) Punch/shave biospy of skin of left arm, seborrheic keratosis Colectomy (09/18/14) DR. GRAJEDA Hemicolectomy [facility]; 09/15/14; RIGHT History of bilateral ligation of fallopian tubes History of partial colectomy 09/15/14 right hemicolectomy w/ileocolic anastomosis History of partial surgical removal of colon (09/15/14) Ligation of fallopian tube S/P AAA repair S/P tubal ligation Status post appendectomy Family History Mother Essential hypertension Alzheimer's disease Father Heart disease Breast cancer Prostate cancer Sister Myocardial infarction Sister Myocardial infarction Brother Cancer Sister No problems noted. Sister No problems noted. Brother Substance abuse Brother Substance abuse Brother Substance abuse Cancer Son No problems noted. Daughter No problems noted. Social History Smoking/Tobacco Use Status: Former Tobacco Use Smoking risk assessment performed?: Yes Alcohol Intake: never Drug use: Never Substance use type: does not use Household members: other Details: 4 Pets and animals: Yes Pets and animals: cat(s) and dog(s) Current gender identity: decline to answer What is your relationship status?: refused to answer How often do you talk on the phone with friends or family?: decline to answer How often do you get together with friends or relatives?: decline to answer How often do you attend methodist or pentecostal services?: decline to answer Do you belong to any clubs or organized social groups?: decline to answer Panel score (0-1 are the most socially isolated patients): 0 What type of physical activity do you participate in: none Lelo/Jew: No preference Special lelo needs: No Do you feel safe at home: Yes Do you feel safe in your relationship?: Yes Meds Allergies and Home Medications Allergies Allergy/AdvReac Type Severity Reaction Status Date / Time pneumococcal 7-valent Allergy Mild Local Verified 05/15/22 15:49 conjugate to reaction [From Prevnar] amoxicillin trihydrate AdvReac Intermediate VOMITING Verified 05/15/22 15:49 [From Augmentin] potassium clavulanate AdvReac Intermediate VOMITING Verified 05/15/22 15:49 [From Augmentin] Home Medications Medication Instructions Recorded Confirmed Type acetaminophen 325 mg tablet 650 mg Q8H PRN PRN 08/10/14 06/04/22 History (Tylenol) Lactobacillus acidophilus 1 1 ea PO BID 03/11/15 06/04/22 History billion cell tablet Immodium 1 - 2 cap PO PRN 06/12/15 05/15/22 History aspirin 81 mg tablet,delayed 81 mg PO DAILY 11/16/16 06/04/22 History release (Aspir-) magnesium oxide 400 mg (241.3 mg 400 mg PO DAILY #90 tabs 06/11/21 06/04/22 Rx magnesium) tablet Spiriva with HandiHaler 18 mcg and 1 cap inhalation DAILY #90 10/13/21 05/15/22 Rx inhalation capsules (tiotropium inhalations bromide) fluticasone propionate 220 1 puff inhalation BID #12 grams 12/10/21 05/15/22 Rx mcg/actuation HFA aerosol inhaler potassium chloride 20 mEq 20 meq PO BID #180 tabs 12/10/21 06/04/22 Rx tablet,extended release(part/cryst) (Klor-Con M) risperidone 2 mg tablet (Risperdal) 2 mg PO HS #90 tabs 12/10/21 06/04/22 Rx sertraline 50 mg tablet 50 mg PO DAILY #90 tabs 12/10/21 06/04/22 Rx trazodone 100 mg tablet 100 mg PO HS #90 tabs 12/10/21 06/04/22 Rx apixaban 5 mg tablet (Eliquis) 5 mg PO BID #180 tabs 01/11/22 06/04/22 Rx lorazepam 0.5 mg tablet 0.5 mg PO TID PRN anxiety #270 tabs 01/25/22 06/04/22 Rx albuterol sulfate 90 mcg/actuation 2 puff inhalation Q4H PRN 02/02/22 05/15/22 Rx aerosol inhaler shortness of breath #18 grams digoxin 125 mcg (0.125 mg) tablet 125 mcg PO DAILY #90 tabs 04/19/22 06/04/22 Rx prednisone 10 mg tablet 10 mg PO DIRECTED #6 tabs 05/24/22 Rx fluticasone 500 mcg-salmeterol 50 1 inh inhalation BID #180 ea 05/25/22 06/04/22 Rx mcg/dose blistr powdr for inhalation (Advair Diskus) furosemide 20 mg tablet 20 mg PO DAILY #90 tabs 05/31/22 06/04/22 Rx fluticasone 500 mcg-salmeterol 50 1 inh inhalation BID 06/04/22 06/04/22 History mcg/dose blistr powdr for inhalation (Advair Diskus) Exam Narrative Exam Narrative: GEN: Alert and oriented x 3, pleasant and cooperative, gives linear history but doesn't remember details of her medical history like surgies. No acute distress at rest. Constant lip smacking. HEENT: Head atraumatic. Conjunctiva clear, no icterus. PEERL, EOMI. no rhinorrhea. MM slightly dry, edentulous, OP benign. Neck is supple with no masses or lymphadenopathy, trachea midline LUNGS: CTAB with normal effort CV: Irregularly irregular with no murmurs, gallops, or rubs. ABD: hypoactive bowel sounds. Soft, mild diffuse distension. no fluid wave. No masses. Midline scar. Mild right mid to lower abdominal tendnerness. No guarding or rebound. EXT: no cyanosis, clubbing, or edema MSK: No joint redness or swelling NEURO: CN 2-12 grossly intact. Normal movement of 4 extremities. Normal speech and coordination SKIN: No rashes or open wounds. bruising on dorsal hands/wrists. PSYCH: normal mood and affect. no hallucinations evident. Results Imaging Chest x-ray: report reviewed (Normal lungs. The nasogastric tube tip is off the edge of the film. But is below the diaphragm in the stomach. ) CT scan - pelvis: report reviewed (1. Findings suspicious for small bowel obstruction. 2. Small amount of abdominal pelvic ascites. 3. Diffuse thickening of the wall of the urinary bladder with bladder diverticula. There is also small focus of air in the dependent portion of the urinary bladder. Inflammatory or infectious cystitis ) Labs 06/04/22 12:26 06/04/22 12:26 Labs: Laboratory Results - last 24 hr 06/04/22 06/04/22 06/04/22 12:26 12:26 12:26 WBC 14.72 H RBC 4.70 Hgb 14.0 Hct 43.2 MCV 92 MCH 29.8 MCHC 32.4 RDW 13.7 Plt Count 213 MPV 11.2 H Immature Gran % 0.5 Neutrophils % 82.8 Lymphocytes % 8.7 Monocytes % 7.5 Eosinophils % 0.3 Basophils % 0.2 Nucleated RBC % 0.0 Absolute Neutrophils 12.19 H Absolute Lymphocytes 1.28 Absolute Monocytes 1.10 H Absolute Eosinophils 0.04 Absolute Basophils 0.03 Sodium 135 L Potassium 4.3 Chloride 97 L Carbon Dioxide 31.8 Anion Gap 6.2 BUN 13 Creatinine 1.0 Est GFR (CKD-EPI 2020) 56.25 Glucose 122 H Calcium 9.0 Total Bilirubin 1.3 H AST 16 ALT 19 Alkaline Phosphatase 78 C-Reactive Protein 9.28 H Total Protein 6.6 Albumin 3.0 L Lipase 25 Urine Color Urine Clarity Urine pH Ur Specific [place] Urine Protein Urine Ketones Urine Blood Urine Nitrite Urine Bilirubin Urine Urobilinogen Ur Leukocyte Esterase Urine RBC Urine WBC Ur Epithelial Cells Urine Crystals Urine Bacteria Urine Casts Urine Mucus Urine Other Ur Culture Indicated? Urine Glucose COVID-19 Source SARS-CoV-2 (PCR) Influenza Type A (PCR) Influenza Type B (PCR) RSV (PCR) Add-On Test Request 06/04/22 06/04/22 06/04/22 12:26 15:10 17:40 WBC RBC Hgb Hct MCV MCH MCHC RDW Plt Count MPV Immature Gran % Neutrophils % Lymphocytes % Monocytes % Eosinophils % Basophils % Nucleated RBC % Absolute Neutrophils Absolute Lymphocytes Absolute Monocytes Absolute Eosinophils Absolute Basophils Sodium Potassium Chloride Carbon Dioxide Anion Gap BUN Creatinine Est GFR (CKD-EPI 2020) Glucose Calcium Total Bilirubin AST ALT Alkaline Phosphatase C-Reactive Protein Total Protein Albumin Lipase Urine Color Urine Clarity Urine pH Ur Specific [place] Urine Protein Urine Ketones Urine Blood Urine Nitrite Urine Bilirubin Urine Urobilinogen Ur Leukocyte Esterase Urine RBC Urine WBC Ur Epithelial Cells Urine Crystals Urine Bacteria Urine Casts Urine Mucus Urine Other Ur Culture Indicated? Urine Glucose COVID-19 Source Nasopharynx SARS-CoV-2 (PCR) Negative Influenza Type A (PCR) Negative Influenza Type B (PCR) Negative RSV (PCR) Negative Add-On Test Request DONE DONE 06/04/22 19:02 WBC RBC Hgb Hct MCV MCH MCHC RDW Plt Count MPV Immature Gran % Neutrophils % Lymphocytes % Monocytes % Eosinophils % Basophils % Nucleated RBC % Absolute Neutrophils Absolute Lymphocytes Absolute Monocytes Absolute Eosinophils Absolute Basophils Sodium Potassium Chloride Carbon Dioxide Anion Gap BUN Creatinine Est GFR (CKD-EPI 2020) Glucose Calcium Total Bilirubin AST ALT Alkaline Phosphatase C-Reactive Protein Total Protein Albumin Lipase Urine Color Yellow Urine Clarity Sl Cloudy Urine pH 7.0 Ur Specific [place] 1.010 Urine Protein 30 H Urine Ketones Negative Urine Blood Small H Urine Nitrite Positive H Urine Bilirubin Negative Urine Urobilinogen 0.2 Ur Leukocyte Esterase Trace H Urine RBC 10-20 H Urine WBC 20-50 H Ur Epithelial Cells Few Urine Crystals Negative Urine Bacteria Many Urine Casts Negative Urine Mucus Negative Urine Other Negative Ur Culture Indicated? C&S Done As Ordered Urine Glucose Negative COVID-19 Source SARS-CoV-2 (PCR) Influenza Type A (PCR) Influenza Type B (PCR) RSV (PCR) Add-On Test Request Last Vital Signs Temp 37.0 C 06/04/22 20:07 Pulse 93 H 06/04/22 20:07 Resp 19 06/04/22 20:07 BP 102/63 06/04/22 20:07 Pulse Ox 92 06/04/22 20:07 Time Spent Time spent with Patient: 55-74 minutes Time was spent: preparing to see the patient(eg.review tests), obtaining and/or reviewing separately otained hiistory, referring, communicating with other health child care center assistant director, indepentently interpreting results and counseling the patient
[2022-06-04] MEDS: traZODone 100 MG TAB NG (21:17)
[2022-06-04] MEDS: risperiDONE 1 MG TAB 2 MG NG (21:33)
[2022-06-04] MEDS: cefTRIAXone 1 GM/50 ML BAG IVPB (22:32)
[2022-06-05] VITALS (12 sets, daily range): BP systolic 86–116; BP diastolic 57–69; PULSE 93–131; RESP 14–21; TEMP 35.9–36.6; O2SAT 91–95
--- NOTE | 2022-06-05 | DI.RAD_ITS ---
Exam(s) XR PORTABLE CHEST AP POST LINE EXAM: XR PORTABLE CHEST AP POST LINE CLINICAL HISTORY: Post PICC insertion TECHNIQUE: 2D digital imaging was performed. COMPARISON: CR XR PORTABLE CHEST AP from 06/04/[address] ABDOMEN PELVIS W from 06/04/2022 FINDINGS: Exam limited by patient body habitus and under penetration. A nasogastric tube again projects below the diaphragm. A PICC line has been placed. The tip is difficult to sac Shannan locate since there is o verlap with the NG tube. Appears to lie in the right atrium. LUNGS: Chronic fibrotic changes. Clear. Left lung base not evaluated due to overlap with cardiac si lhouette. No pleural abnormality seen. HEART: Grossly enlarged. Mitral annular calcifications. AORTA: Calcified. BONES: Unremarkable for age. Soft tissues: Unremarkable. IMPRESSION: Tip of PICC line appears to lie in the right atrium. DATA REPOSITORY: RADIATION DOSE DELIVERED:
[2022-06-05] MEDS: ACETAMINOPHEN 1,000 MG/100 ML BTL 400 MG IVPB ×2 (06:22→13:14)
[2022-06-05] MEDS: Normal Saline Flush 10 ML SYR IVP (06:30)
[2022-06-05 06:31] LABS: Abs Immature Grans 0.03 10^3/uL (0.0-0.06); Absolute Basophil Count 0.03 10^3/uL (0.0-0.2); Absolute Eosinophil Count 0.05 10^3/uL (0.0-0.7); Absolute Lymphocyte Count 0.94 10^3/uL (1.2-3.4); Absolute Monocyte Count 0.96 10^3/uL (0.1-0.8); Absolute Neutrophil Count 6.95 10^3/uL (1.2-6.7); Basophils % 0.3; Eosinophils % 0.6; HCT 40.3 % (36.0-46.0); HGB 13.3 g/dL (11.2-15.7); Immature Grans % 0.3; Lymphocytes % 10.5; MCH 29.6 pg (27.0-33.0); MCV 90 fL (80-95); MPV 10.1 fL (8.0-11.0); Monocytes % 10.7; Neutrophils % 77.6; Platelet Count 189 10^3/uL (130-400); RDW 13.7 % (11.7-14.6); RDW-SD 44.9 fL; WBC 8.96 10^3/uL (4.4-10.8)
[2022-06-05 06:51] LABS: ALT 14 U/L (14-59); AST 11 U/L (15-37); Albumin 2.4 g/dL (3.4-5.0); Alkaline Phosphatase 66 U/L (46-116); Anion Gap 5.8 mmol/L (3-11); BUN 17 mg/dL (7-18); Bilirubin, Total 0.9 mg/dL (0.2-1.0); CO2 33.2 mmol/L (21.0-32.0); CREATININE 0.9 mg/dL (0.55-1.02); Calcium 8.6 mg/dL (8.5-10.1); Chloride 100 mmol/L (98-107); Estimated GFR 63.83 (mL/min/1.73m2); Glucose 108 mg/dL (74-106); Magnesium 1.8 mg/dL (1.8-2.4); Sodium 139 mmol/L (136-145); Total Protein 5.7 g/dL (6.4-8.2)
[2022-06-05] MEDS: Budesonide/Formoterol 160/4.5 6 GM 60 PUFF INH IH ×2 (07:56→19:53)
[2022-06-05] MEDS: Apixaban 5 MG TAB NG ×2 (10:02→21:08)
[2022-06-05] MEDS: Sertraline 50 MG TAB NG (10:03)
[2022-06-05] MEDS: Digoxin 0.125 MG TAB NG (10:03)
--- NOTE | 2022-06-05 11:52 | NUR.NOTE ---
Nursing Note: @1100 talked with charge nurse to receive clarification from providers about need for tpn or iv nutrition. asked charge nurse for f/u with new information
--- NOTE | 2022-06-05 12:07 | PDOC.CMIN ---
- If Service Date Differs Date of service: 06/05/22 Time of Service: 12:07 Care Management Initial Assess REASON FOR HOSPITALIZATION:: Small Bowel Obstruction PAST MEDICAL HISTORY/PAST SURGICAL HISTORY:: All Active Problems. Cystitis (Acute). Discharge planning issues (Acute). SBO (small bowel obstruction) (Acute). Involuntary movements (Acute). Chronic heart failure with preserved ejection fraction (HFpEF) (Acute). Atrial fibrillation (Chronic). Tubular adenoma of colon (Chronic 03/04/14). 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 Positive neutrophil AB mostlikely indicating ulcerative colitis. Anxiety (Chronic 07/25/17). Coronary disease (Chronic). COPD (chronic obstructive pulmonary disease) (Chronic). Hypertension (Chronic). SCHAEFFER (nonalcoholic steatohepatitis) (Chronic). H/O inflammatory bowel disease (Chronic). Medical History. Abdominal aortic aneurysm (05/31/12). 4.4 cm 07/20. s/p repair 2012. Acute and chronic respiratory failure with hypoxia. Arm skin lesion, left (12/09/15). Atherosclerosis. Atherosclerosis. Bradycardia. Bruit. Bruit of left carotid artery. mild-mod. plaque per [place]/S. Aminah onychomycosis. Cognitive change. Complete edentulism, unspecified. Congestive heart failure. Conjunctivitis. COPD (chronic obstructive pulmonary disease) with emphysema. CVD (cardiovascular disease). Dependence on supplemental oxygen. Depression. a. with psychotic features. Diarrhea (11/19/14). Disorder of adrenal gland. Adrenal mass on CT-right; serial CT scan no change. 02/18-09/19, normal metanephrines, normal dexamethasone suppression. Disorder of adrenal gland. Disorder of appendix. 12/07/12 s/p appendectomy. Disorder of appendix (12/07/12). DVT prophylaxis. Electrolyte imbalance (09/15/14). a. hypokalemia. b. hypomagnesemia. Elevated LDH. Elevated serum lactate dehydrogenase (LDH). Encounter for monitoring diuretic therapy. Essential (primary) hypertension. 06/01/13. Hiatus hernia syndrome. 12/05/14 [facility]; EGD. History of tobacco use. 100pack/years. History of tobacco use. Hyperlipidemia. Increased body mass index. Ischemic bowel disease. 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). Palliative care patient. Palpitations. 08/26/14; FREQ PVC BY HOLTER. Palpitations. Pulmonary hypertension. Right hip pain. Right pontine CVA. [facility]-01/30/16; 8X5 mm. RUQ abdominal pain. Seborrheic keratosis (01/01/16). punch/shave biopsy skin of left arm. Seborrheic keratosis (01/01/16). Shortness of breath (10/14/16). SVT (supraventricular tachycardia) (09/15/14). Tachycardia. Urinary frequency (08/21/15). Vascular insufficiency of intestine (06/12/15). Weight loss (04/02/14). Weight loss, abnormal (~06/11/21). 30# in last yr. Surgical History. Appendectomy. Biopsy, Soft Tissue (01/01/16). Punch/shave biospy of skin of left arm, seborrheic keratosis. Colectomy (09/18/14). DR. GRAJEDA. Hemicolectomy. [facility]; 09/15/14; RIGHT. History of bilateral ligation of fallopian tubes. History of partial colectomy. 09/15/14 right hemicolectomy w/ileocolic anastomosis. History of partial surgical removal of colon (09/15/14). Ligation of fallopian tube. S/P AAA repair. S/P tubal ligation. Status post appendectomy PREVIOUS FUNCTIONAL STATUS/SOCIAL/FAMILY SUPPORTS:: Deb is and lives in [place]. She has two supportive children, a daughter, Mimi, who resides with her, and a son, Fabricio, who lives locally, in addition to several grandchildren who also live locally. Deb is independent with her ADL's at baseline. Mimi provides her transportation and does all the cooking. CURRENT FUNCTIONAL STATUS:: MALLY was not able to meet with Deb today, as she was busy with providers on every attempt. Per report, she has an NG tube placed, and the surgical team feels that this non surgical approach is appropriate for her, due to her goals of care, as she prefers not to have surgery. She is being closely monitored, and is improving with the NG tube. She will remain NPO overnight. MALLY will continue to follow. ADVANCE DIRECTIVES:: Advance Directive on file; daughter Mimi Merino is Health Care Agent. DNR/COLST also on file. Has patient been provided with info about the portal/API?: Yes Did the patient sign up for the portal?: No CODE STATUS:: DNR/DNI INSURANCE COVERAGE / FINANCIAL ISSUES:: [employer] (Medicare replacement plan). [employer] like. Medicare CURRENT HOME/COMMUNITY SERVICES/EQUIPMENT:: Uses a walker, cane or wheelchair as needed. Followed by Palliative Care. PRIMARY CARE PHYSICIAN:: Carolin Salinas POTENTIAL DISCHARGE NEEDS:: Evaluations for further needs, follow up appointments. PATIENT/FAMILY EDUCATION NEEDS:: Review discharge isntructions and limitations, discussion of self care needs including ask me three. ANTICIPATED BARRIERS TO DISCHARGE:: None identified. TRANSPORTATION:: Via private vehicle with daughter. PLAN:: Anticipate, Deb will be discharged home when medically cleared by provider with a resumption of RN, PT. She will follow up with community providers and discharge plan of care as prescribed. Family will drive her home when ready. Pt declines referral to [facility]. CM will continue to follow.
--- NOTE | 2022-06-05 12:38 | W.PM.PROGNOT ---
Date of Service Date of service: 06/05/22 Time of Service: 12:39 Assessment and Plan Assessment and plan (1) SBO (small bowel obstruction): Status: Acute Assessment and plan: Her presentation and CT imaging is consistent with SBO. She denies history of SBO but she is high risk with several abdominal surgeries including hemicolectomy. I appreciate evaulation by Dr. Dorman. Deb is not a candidate for surgery here, and she prefers to avoid surgery. 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 She is improving with NG tube. Continue NPO overnight, conservative IV fluids given h/o HFpEF. (2) Cystitis: Status: Acute Assessment and plan: She is not complaining of UTI symptoms, however imaging strongly suggests cystitis and urine is consistent. She also has an elevated WBC and CRP (though this could be SBO related). Given this, will go ahead and treat with ceftriaxone. (3) Chronic heart failure with preserved ejection fraction (HFpEF): Status: Acute Assessment and plan: Euvolemic, no evidence of active CHF. (4) COPD (chronic obstructive pulmonary disease): Status: Chronic Assessment and plan: Stable at baseline, continue outpatient inhalers (5) Atrial fibrillation: Status: Chronic Assessment and plan: continue digoxin for rate, levels pending. Cotninue apixaban for stroke prophylaxis. 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 Stable now. Continue outpatient medication (via NG for now) (7) DVT prophylaxis: Assessment and plan: She is on apixaban (8) Discharge planning issues: Status: Acute Assessment and plan: Stable on medical floor. She confirms DNR/DNI status. Subjective Subjective Patient reports: no new complaints, voiding w/o difficulty (incontinent), no bowel movement and afebrile; denies diarrhea, vomiting or shortness of breath Interval history since last seen: Deb is NPO with NGT for SBO; she states she is feeling comfortable now and feels that the pain medication is working well for her. Exam Narrative Exam Narrative: GEN: Alert and oriented x 3, pleasant and cooperative, gives linear history but doesn't remember details of her medical history like surgies. No acute distress at rest. Constant lip smacking. HEENT: Head atraumatic. Conjunctiva clear, no icterus. PEERL, EOMI. no rhinorrhea. MM slightly dry, edentulous, OP benign. Neck is supple with no masses or lymphadenopathy, trachea midline LUNGS: CTAB with normal effort CV: Irregularly irregular with no murmurs, gallops, or rubs. ABD: hypoactive bowel sounds. Soft, moderate diffuse distension. no fluid wave. No masses. Midline scar. Mild right mid to lower abdominal tendernesses. No guarding or rebound. EXT: no cyanosis, clubbing, or edema MSK: No joint redness or swelling NEURO: CN 2-12 grossly intact. Normal movement of 4 extremities. Normal speech and coordination SKIN: No rashes or open wounds. bruising on dorsal hands/wrists. PSYCH: normal mood and affect. no hallucinations evident. Objective Last Vital Signs Temp 36.6 C 06/05/22 12:17 Pulse 101 H 06/05/22 12:17 Resp 17 06/05/22 12:17 BP 86/60 L 06/05/22 12:17 Pulse Ox 91 L 06/05/22 12:17 Laboratory Results - last 24 hr 06/04/22 06/04/22 06/04/22 12:26 12:26 12:26 WBC 14.72 H RBC 4.70 Hgb 14.0 Hct 43.2 MCV 92 MCH 29.8 MCHC 32.4 RDW 13.7 Plt Count 213 MPV 11.2 H Immature Gran % 0.5 Neutrophils % 82.8 Lymphocytes % 8.7 Monocytes % 7.5 Eosinophils % 0.3 Basophils % 0.2 Nucleated RBC % 0.0 Absolute Neutrophils 12.19 H Absolute Lymphocytes 1.28 Absolute Monocytes 1.10 H Absolute Eosinophils 0.04 Absolute Basophils 0.03 Sodium 135 L Potassium 4.3 Chloride 97 L Carbon Dioxide 31.8 Anion Gap 6.2 BUN 13 Creatinine 1.0 Est GFR (CKD-EPI 2020) 56.25 Glucose 122 H Calcium 9.0 Magnesium Total Bilirubin 1.3 H AST 16 ALT 19 Alkaline Phosphatase 78 C-Reactive Protein 9.28 H Total Protein 6.6 Albumin 3.0 L Lipase 25 Urine Color Urine Clarity Urine pH Ur Specific [place] Urine Protein Urine Ketones Urine Blood Urine Nitrite Urine Bilirubin Urine Urobilinogen Ur Leukocyte Esterase Urine RBC Urine WBC Ur Epithelial Cells Urine Crystals Urine Bacteria Urine Casts Urine Mucus Urine Other Ur Culture Indicated? Urine Glucose Digoxin COVID-19 Source SARS-CoV-2 (PCR) Influenza Type A (PCR) Influenza Type B (PCR) RSV (PCR) Add-On Test Request 06/04/22 06/04/22 06/04/22 12:26 12:26 15:10 WBC RBC Hgb Hct MCV MCH MCHC RDW Plt Count MPV Immature Gran % Neutrophils % Lymphocytes % Monocytes % Eosinophils % Basophils % Nucleated RBC % Absolute Neutrophils Absolute Lymphocytes Absolute Monocytes Absolute Eosinophils Absolute Basophils Sodium Potassium Chloride Carbon Dioxide Anion Gap BUN Creatinine Est GFR (CKD-EPI 2020) Glucose Calcium Magnesium Total Bilirubin AST ALT Alkaline Phosphatase C-Reactive Protein Total Protein Albumin Lipase Urine Color Urine Clarity Urine pH Ur Specific [place] Urine Protein Urine Ketones Urine Blood Urine Nitrite Urine Bilirubin Urine Urobilinogen Ur Leukocyte Esterase Urine RBC Urine WBC Ur Epithelial Cells Urine Crystals Urine Bacteria Urine Casts Urine Mucus Urine Other Ur Culture Indicated? Urine Glucose Digoxin 0.86 L COVID-19 Source SARS-CoV-2 (PCR) Influenza Type A (PCR) Influenza Type B (PCR) RSV (PCR) Add-On Test Request DONE DONE 06/04/22 06/04/22 06/05/22 17:40 19:02 06:10 WBC RBC Hgb Hct MCV MCH MCHC RDW Plt Count MPV Immature Gran % Neutrophils % Lymphocytes % Monocytes % Eosinophils % Basophils % Nucleated RBC % Absolute Neutrophils Absolute Lymphocytes Absolute Monocytes Absolute Eosinophils Absolute Basophils Sodium 139 Potassium 4.0 Chloride 100 Carbon Dioxide 33.2 H Anion Gap 5.8 BUN 17 Creatinine 0.9 Est GFR (CKD-EPI 2020) 63.83 Glucose 108 H Calcium 8.6 Magnesium 1.8 Total Bilirubin 0.9 AST 11 L ALT 14 Alkaline Phosphatase 66 C-Reactive Protein Total Protein 5.7 L Albumin 2.4 L Lipase Urine Color Yellow Urine Clarity Sl Cloudy Urine pH 7.0 Ur Specific [place] 1.010 Urine Protein 30 H Urine Ketones Negative Urine Blood Small H Urine Nitrite Positive H Urine Bilirubin Negative Urine Urobilinogen 0.2 Ur Leukocyte Esterase Trace H Urine RBC 10-20 H Urine WBC 20-50 H Ur Epithelial Cells Few Urine Crystals Negative Urine Bacteria Many Urine Casts Negative Urine Mucus Negative Urine Other Negative Ur Culture Indicated? C&S Done As Ordered Urine Glucose Negative Digoxin COVID-19 Source Nasopharynx SARS-CoV-2 (PCR) Negative Influenza Type A (PCR) Negative Influenza Type B (PCR) Negative RSV (PCR) Negative Add-On Test Request 06/05/22 06:10 WBC 8.96 RBC 4.50 Hgb 13.3 Hct 40.3 MCV 90 MCH 29.6 MCHC 33.0 RDW 13.7 Plt Count 189 MPV 10.1 Immature Gran % 0.3 Neutrophils % 77.6 Lymphocytes % 10.5 Monocytes % 10.7 Eosinophils % 0.6 Basophils % 0.3 Nucleated RBC % 0.0 Absolute Neutrophils 6.95 H Absolute Lymphocytes 0.94 L Absolute Monocytes 0.96 H Absolute Eosinophils 0.05 Absolute Basophils 0.03 Sodium Potassium Chloride Carbon Dioxide Anion Gap BUN Creatinine Est GFR (CKD-EPI 2020) Glucose Calcium Magnesium Total Bilirubin AST ALT Alkaline Phosphatase C-Reactive Protein Total Protein Albumin Lipase Urine Color Urine Clarity Urine pH Ur Specific [place] Urine Protein Urine Ketones Urine Blood Urine Nitrite Urine Bilirubin Urine Urobilinogen Ur Leukocyte Esterase Urine RBC Urine WBC Ur Epithelial Cells Urine Crystals Urine Bacteria Urine Casts Urine Mucus Urine Other Ur Culture Indicated? Urine Glucose Digoxin COVID-19 Source SARS-CoV-2 (PCR) Influenza Type A (PCR) Influenza Type B (PCR) RSV (PCR) Add-On Test Request Time Spent with Patient Time Spent with Patient: 35-49 minutes Time was spent: preparing to see the patient(eg.review tests), ordering medications,tests, procedures, referring, communicating with other health healthcare network pricing consultant, indepentently interpreting results, counseling the patient and care coordination
[2022-06-05] MEDS: Lactated Ringers 500 ML IV (12:45)
--- NOTE | 2022-06-05 12:51 | NUR.NOTE ---
Nursing Note: family at bedside, poc updated. educated pt and family about picc line insertion, and tpn
[2022-06-05] MEDS: LORazepam 2 MG/ML VIAL 0.5 MG IVP (13:13)
--- NOTE | 2022-06-05 13:25 | PGE_ITS ---
Date of Service Date of service: 06/05/22 Time of Service: 12:55 Assessment and Plan Assessment and plan (1) SBO (small bowel obstruction): Status: Acute Assessment and plan: 81 yo woman with chronic medical problems and a presumably hostile abdomen(considering her surgical history) who has an acute SBO. She is HD stable and overall comfortable(the main goal). She doesn't seem too bothered with NG tube decompression. I think she still has a chance to pull out of this with decompression. It's too early to tell. Her non-surgical goals and comfort goals are clear and will be respected. It is impossible to decipher ahead of time how difficult a surgery would be for her, but what is certain is that she is high-risk for intra-op and post-op complications. A minimally-invasive lysis of adhesions could be very simple, quick and easy . . . or it could be a dense adhesion catastrophe that leads to more suffering. Considering her goals and baseline status, I don't think it is wrong for her to have palliative and medical management only . . . but certainly if she could tolerate anesthesia, laparoscopic lysis of adhesions could be a straight-forward fix and would be well tolerated from a comfort standpoint. Recommend: # NGT to continuous decompression # Gastrograffin challenge this afternoon - AM XR # Remainder of care per medical team and palliative team Hopefully she opens up and surgery doesn't even need to be considered Subjective Subjective Interval history since last seen: No events or clinical changes. Discussed case with daughter and patient at the bedside. Patient does not want surgery. DNR/DNI and palliation desired. She stll has some abdominal pain on/off. No bowel movement or definitive gas. Exam Narrative Exam Narrative: Gen: Nontoxic, comfortable and in no distress Abdomen: Soft, nontender, not very distended. NG tube output somewhat bilious. Objective Last Vital Signs Temp 97.9 F 06/05/22 12:17 Pulse 101 H 06/05/22 12:17 Resp 17 06/05/22 12:17 BP 86/60 L 06/05/22 12:17 Pulse Ox 91 L 06/05/22 12:17 Laboratory Results - last 24 hr 06/04/22 06/04/22 06/04/22 12:26 12:26 12:26 WBC RBC Hgb Hct MCV MCH MCHC RDW Plt Count MPV Immature Gran % Neutrophils % Lymphocytes % Monocytes % Eosinophils % Basophils % Nucleated RBC % Absolute Neutrophils Absolute Lymphocytes Absolute Monocytes Absolute Eosinophils Absolute Basophils Sodium Potassium Chloride Carbon Dioxide Anion Gap BUN Creatinine Est GFR (CKD-EPI 2020) Glucose Calcium Magnesium Total Bilirubin AST ALT Alkaline Phosphatase C-Reactive Protein 9.28 H Total Protein Albumin Urine Color Urine Clarity Urine pH Ur Specific [place] Urine Protein Urine Ketones Urine Blood Urine Nitrite Urine Bilirubin Urine Urobilinogen Ur Leukocyte Esterase Urine RBC Urine WBC Ur Epithelial Cells Urine Crystals Urine Bacteria Urine Casts Urine Mucus Urine Other Ur Culture Indicated? Urine Glucose Digoxin 0.86 L COVID-19 Source SARS-CoV-2 (PCR) Influenza Type A (PCR) Influenza Type B (PCR) RSV (PCR) Add-On Test Request DONE 06/04/22 06/04/22 06/04/22 15:10 17:40 19:02 WBC RBC Hgb Hct MCV MCH MCHC RDW Plt Count MPV Immature Gran % Neutrophils % Lymphocytes % Monocytes % Eosinophils % Basophils % Nucleated RBC % Absolute Neutrophils Absolute Lymphocytes Absolute Monocytes Absolute Eosinophils Absolute Basophils Sodium Potassium Chloride Carbon Dioxide Anion Gap BUN Creatinine Est GFR (CKD-EPI 2020) Glucose Calcium Magnesium Total Bilirubin AST ALT Alkaline Phosphatase C-Reactive Protein Total Protein Albumin Urine Color Yellow Urine Clarity Sl Cloudy Urine pH 7.0 Ur Specific [place] 1.010 Urine Protein 30 H Urine Ketones Negative Urine Blood Small H Urine Nitrite Positive H Urine Bilirubin Negative Urine Urobilinogen 0.2 Ur Leukocyte Esterase Trace H Urine RBC 10-20 H Urine WBC 20-50 H Ur Epithelial Cells Few Urine Crystals Negative Urine Bacteria Many Urine Casts Negative Urine Mucus Negative Urine Other Negative Ur Culture Indicated? C&S Done As Ordered Urine Glucose Negative Digoxin COVID-19 Source Nasopharynx SARS-CoV-2 (PCR) Negative Influenza Type A (PCR) Negative Influenza Type B (PCR) Negative RSV (PCR) Negative Add-On Test Request DONE 06/05/22 06/05/22 06:10 06:10 WBC 8.96 RBC 4.50 Hgb 13.3 Hct 40.3 MCV 90 MCH 29.6 MCHC 33.0 RDW 13.7 Plt Count 189 MPV 10.1 Immature Gran % 0.3 Neutrophils % 77.6 Lymphocytes % 10.5 Monocytes % 10.7 Eosinophils % 0.6 Basophils % 0.3 Nucleated RBC % 0.0 Absolute Neutrophils 6.95 H Absolute Lymphocytes 0.94 L Absolute Monocytes 0.96 H Absolute Eosinophils 0.05 Absolute Basophils 0.03 Sodium 139 Potassium 4.0 Chloride 100 Carbon Dioxide 33.2 H Anion Gap 5.8 BUN 17 Creatinine 0.9 Est GFR (CKD-EPI 2020) 63.83 Glucose 108 H Calcium 8.6 Magnesium 1.8 Total Bilirubin 0.9 AST 11 L ALT 14 Alkaline Phosphatase 66 C-Reactive Protein Total Protein 5.7 L Albumin 2.4 L Urine Color Urine Clarity Urine pH Ur Specific [place] Urine Protein Urine Ketones Urine Blood Urine Nitrite Urine Bilirubin Urine Urobilinogen Ur Leukocyte Esterase Urine RBC Urine WBC Ur Epithelial Cells Urine Crystals Urine Bacteria Urine Casts Urine Mucus Urine Other Ur Culture Indicated? Urine Glucose Digoxin COVID-19 Source SARS-CoV-2 (PCR) Influenza Type A (PCR) Influenza Type B (PCR) RSV (PCR) Add-On Test Request Time Spent with Patient Time Spent with Patient: 35-49 minutes Time was spent: referring, communicating with other health critical care clinical nurse specialist, indepentently interpreting results, counseling the patient and care coordination
--- NOTE | 2022-06-05 16:47 | DI.VRAD_ITS ---
PROCEDURE INFORMATION: Exam: XR Chest Exam date and time: 06/05/2022 3:55 PM Age: 81 years old Clinical indication: Other: Post picc insertion TECHNIQUE: Imaging protocol: Radiologic exam of the chest. Views: 1 view. COMPARISON: CR XR PORTABLE CHEST AP 06/04/2022 2:34 PM FINDINGS: Tubes, catheters and devices: NG tube enters the stomach appropriately. Left upper extremity PICC line is noted. This appears to terminate in the superior aspect of the right atrium just beyond the cavoatrial junction. This should be adequate positioning. Somewhat difficult to evaluate with oblique position of x-ray. Lungs: Diffused increased interstitial lung markings. Significance uncertain. Some progressive change since 06/04/2022. This could represent a developing interstitial edema. Pleural spaces: Unremarkable. No pleural effusion. No pneumothorax. Heart/Mediastinum: Mild cardiac enlargement. Bones/joints: Degenerative skeletal changes. IMPRESSION: 1. NG tube and left upper extremity PICC line appear appropriately positioned. 2. Increasing interstitial lung markings bilaterally may represent a component of fluid overload or interstitial edema. 3. Degenerative skeletal changes. Dictated and Authenticated by: Dakotah Norton MD. Ordering:HANNAH Le MD
[2022-06-05] MEDS: cefTRIAXone 1 GM/50 ML BAG IVPB (21:06)
[2022-06-05] MEDS: traZODone 100 MG TAB NG (21:08)
[2022-06-05] MEDS: risperiDONE 1 MG TAB 2 MG NG (21:09)
--- NOTE | 2022-06-05 23:29 | NUR.NOTE ---
Spoke with Dr. Lockett regarding patient's elevating heart rate (120s to 160s). Dr. Lockett ordered to DC tele, which was done.
--- NOTE | 2022-06-05 23:32 | NUR.NOTE ---
Nursing Note: Telemetry discontinued by Dr Lockett 06/05/2022 @ 3537. Final Measurements were Atrial Fibrillation rate 135, 0.10QRS and 0.[address] Lockett aware that patient was becoming tachycardic in the 150's to 160's prior to discharge.
[2022-06-06 03:00] VITALS: BP 111/51; PULSE 115; RESP 17; TEMP 36.5; O2SAT 94
[2022-06-06 07:13] LABS: BUN 19 mg/dL (7-18); CREATININE 0.8 mg/dL (0.55-1.02); Calcium 8.3 mg/dL (8.5-10.1); Chloride 103 mmol/L (98-107); Estimated GFR 73.52 (mL/min/1.73m2); Glucose 113 mg/dL (74-106); PHOSPHORUS 3.6 mg/dL (2.6-4.7); Potassium 3.5 mmol/L (3.5-5.1); Sodium 142 mmol/L (136-145)
[2022-06-06 07:23] VITALS: BP 102/64; PULSE 98; RESP 18; TEMP 36.6; O2SAT 93
[2022-06-06] MEDS: Digoxin 0.125 MG TAB NG (07:49)
[2022-06-06] MEDS: Apixaban 5 MG TAB NG ×2 (07:52→20:04)
[2022-06-06] MEDS: Sertraline 50 MG TAB NG (07:52)
[2022-06-06] MEDS: Gastrografin 120 ML BTL NG (07:53)
[2022-06-06] MEDS: Budesonide/Formoterol 160/4.5 6 GM 60 PUFF INH IH ×2 (08:13→20:05)
--- NOTE | 2022-06-06 08:15 | DI.RAD_ITS ---
Exam(s) XR ABDOMEN FLAT PLATE EXAM: 2D digital imaging was performed. CLINICAL HISTORY: assess for transit of contrast into colon/rectum. COMPARISON: CR XR ABDOMEN FLAT PLATE from 06/04/[address] ABDOMEN PELVIS W from 06/04/2022 TECHNIQUE: Supine views of the abdomen performed. FINDINGS: A nasogastric tube projects in the stomach. There is contrast seen in the colon, in the distal trans verse, splenic flexure through the sigmoid. There has been marked interval improvement of small miguel l dilatation. Mildly dilated small bowel loop is noted in the mid abdomen. Aortoiliac stents again noted. IMPRESSION: Marked improvement in small bowel dilatation. Contrast seen in distal colon. DATA REPOSITORY: RADIATION DOSE DELIVERED:
--- NOTE | 2022-06-06 10:11 | W.PM.PROGNOT ---
Date of Service Date of service: 06/06/22 Time of Service: 12:00 Assessment and Plan Assessment and plan (1) SBO (small bowel obstruction): Status: Acute Assessment and plan: 81 yo woman with SBO. HD stable. Benign abdomen. Maybe opening up with some bowel function? Not sure about the continued subjective pain . . . her exam is very benign. Plan: GAstrograffin challenge XR this evening at 6pm to see where the contrast is getting to. Subjective Subjective Interval history since last seen: Has had some bowel movements. Still having some abdominal pain. Gastrograffin given this morning . . . Exam Narrative Exam Narrative: Gen: Nontoxic, interactive Neuro: AxO Abdomen: Soft, nondistended, grossly nontender Objective Last Vital Signs Temp 97.9 F 06/06/22 07:23 Pulse 98 H 06/06/22 07:23 Resp 18 06/06/22 07:23 BP 102/64 06/06/22 07:23 Pulse Ox 93 06/06/22 07:23 Laboratory Results - last 24 hr 06/06/22 05:42 Sodium 142 Potassium 3.5 Chloride 103 Carbon Dioxide 35.0 H Anion Gap 4.0 BUN 19 H Creatinine 0.8 Est GFR (CKD-EPI 2020) 73.52 Glucose 113 H Calcium 8.3 L Phosphorus 3.6 Magnesium 2.0 Time Spent with Patient Time Spent with Patient: <25 minutes Time was spent: counseling the patient
--- NOTE | 2022-06-06 10:58 | W.PM.PROGNOT ---
Date of Service Date of service: 06/06/22 Time of Service: 10:58 Assessment and Plan Assessment and plan (1) SBO (small bowel obstruction): Status: Acute Assessment and plan: Imaging supports SBO. No hx of SBO, has had several abdominal surgeries including hemicolectomy, not a candidate for surgery here, and she prefers to avoid surgery. h/o ulcerative proctitis and ischemic bowel disease; follow inflammatory markers. She continues to mprove with NG tube. Continue NPO overnight, conservative IV fluids given h/o HFpEF. (2) Cystitis: Status: Acute Assessment and plan: Continue ceftriaxone for UTI (though this could be SBO related). (3) Chronic heart failure with preserved ejection fraction (HFpEF): Status: Acute Assessment and plan: Euvolemic, no evidence of active CHF. (4) COPD (chronic obstructive pulmonary disease): Status: Chronic Assessment and plan: Stable at baseline, continue outpatient inhalers (5) Atrial fibrillation: Status: Chronic Assessment and plan: continue digoxin for rate, levels pending. Cotninue apixaban for stroke prophylaxis. 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 Stable now. Continue outpatient medication (via NG for now) (7) DVT prophylaxis: Assessment and plan: She is on apixaban (8) Discharge planning issues: Status: Acute Assessment and plan: Stable on medical floor. She confirms DNR/DNI status. Home when stable with no services anticipated Subjective Subjective Patient reports: no new complaints, feels better, voiding w/o difficulty, bowel movement and afebrile; denies shortness of breath Interval history since last seen: Deb reports over all feeling better and continues to tolerate the NGT Exam Narrative Exam Narrative: GEN: Alert and oriented x 3, pleasant and cooperative, gives linear history but doesn't remember details of her medical history like surgies. No acute distress at rest. Constant lip smacking. HEENT: Head atraumatic. Conjunctiva clear, no icterus. PEERL, EOMI. no rhinorrhea. MM slightly dry, edentulous, OP benign. Neck is supple with no masses or lymphadenopathy, trachea midline LUNGS: CTAB with normal effort CV: Irregularly irregular with no murmurs, gallops, or rubs. ABD: hypoactive bowel sounds. Soft, moderate diffuse distension. no fluid wave. No masses. Midline scar. Mild right mid to lower abdominal tendernesses. No guarding or rebound. EXT: no cyanosis, clubbing, or edema MSK: No joint redness or swelling NEURO: CN 2-12 grossly intact. Normal movement of 4 extremities. Normal speech and coordination SKIN: No rashes or open wounds. bruising on dorsal hands/wrists. PSYCH: normal mood and affect. no hallucinations evident. Objective Last Vital Signs Temp 36.6 C 06/06/22 07:23 Pulse 98 H 06/06/22 07:23 Resp 18 06/06/22 07:23 BP 102/64 06/06/22 07:23 Pulse Ox 93 06/06/22 07:23 Laboratory Results - last 24 hr 06/06/22 05:42 Sodium 142 Potassium 3.5 Chloride 103 Carbon Dioxide 35.0 H Anion Gap 4.0 BUN 19 H Creatinine 0.8 Est GFR (CKD-EPI 2020) 73.52 Glucose 113 H Calcium 8.3 L Phosphorus 3.6 Magnesium 2.0 Time Spent with Patient Time Spent with Patient: 25-34 minutes Time was spent: preparing to see the patient(eg.review tests), ordering medications,tests, procedures, referring, communicating with other health career developer, indepentently interpreting results, counseling the patient and care coordination
[2022-06-06] MEDS: LORazepam 2 MG/ML VIAL IV (13:45)
--- NOTE | 2022-06-06 14:42 | PHA.REVIEW2 ---
Pharmacy Admission Review - Admission Clinical Review (Last Updated 06/04/22 @ 21:43 by Ben Bowers) Cystitis (Acute) Discharge planning issues (Acute) SBO (small bowel obstruction) (Acute) Chronic heart failure with preserved ejection fraction (HFpEF) (Acute) pneumococcal 7-valent conjugate to [From Prevnar] Allergy (Mild, Verified 05/15/22 15:49) Local reaction amoxicillin trihydrate [From Augmentin] Adverse Reaction (Intermediate, Verified 05/15/22 15:49) VOMITING potassium clavulanate [From Augmentin] Adverse Reaction (Intermediate, Verified 05/15/22 15:49) VOMITING Resuscitation Status DNR/DNI Height 5 ft 2 in Weight 70.9 kg - Comments Comments/Follow Ups: TPN started yesterday for SBO (reportedly pt was hospitalized for 10 days last time). Dietitian not in house this weekend but spoke w/Alex in dietary who reached out to [facility] - the recommendation is to use clinimix 4.25% AA/D10W (has PICC line) at a goal rate of 83 mL/hr (started at half rate yesterday, increase today at 1700 today with next bag). Electrolytes are stable, potassium slight drop to 3.5 today, added an extra 10 mEq to the 2 TPN bags to hang the next 24 hours - Renal Dosing Renal Dosing: BUN 19 mg/dL (7-18) H 06/06/22 05:42 Creatinine 0.8 mg/dL (0.55-1.02) 06/06/22 05:42 Medications needing adjustments: Reviewed (crcl = 40, meds ok. monitor for changes in kidney fxn) - Anticoagulation Anticoagulation: Hgb 13.3 g/dL (11.2-15.7) 06/05/22 06:10 Hct 40.3 % (36.0-46.0) 06/05/22 06:10 Plt Count 189 10^3/uL (130-400) 06/05/22 06:10 Creatinine 0.8 mg/dL (0.55-1.02) 06/06/22 05:42 DVT Prophylaxis: Reviewed Medications: Apixaban Therapeutic Anticoagulation: Reviewed Medications: Apixaban - Opiate Usage Evaluate Pain Scale/Pains Meds: N/A - Relevant Labs Sodium 142 mmol/L (136-145) 06/06/22 05:42 Potassium 3.5 mmol/L (3.5-5.1) 06/06/22 05:42 Chloride 103 mmol/L (98-107) 06/06/22 05:42 Phosphorus 3.6 mg/dL (2.6-4.7) 06/06/22 05:42 Magnesium 2.0 mg/dL (1.8-2.4) 06/06/22 05:42 C-Reactive Protein 9.28 mg/dL (0.0-0.3) H 06/04/22 12:26 Electrolytes, C-Reactive P, ESR: Reviewed (added 20 mEq of K+ to TPN (10 mEq in each bag) for today/tomorrow) - DM Control DM Control: Glucose 113 mg/dL (74-106) H 06/06/22 05:42 Finger Stick Blood Glucose 134 Finger Stick Blood Glucose 134 DM Control: N/A - Cardiac Review BP, HR, EF%: Reviewed - Qtc Review QTc: Reviewed (last EKG 05/18/22, QTc = 514) - IV to PO Switch IV Medications: N/A (not appropriate at this time, bowel obstruction) - Home Meds Home Med List reviewed: Reviewed - Current meds Current Medication Order Review: Reviewed Antibiotic Activity - Pharmacy Antibiotic Review Pharmacy Antibiotic Activity: Reviewed, no change (ceftriaxone 1g qday for UTI)
[2022-06-06 14:48] VITALS: BP 108/65; PULSE 81; RESP 17; TEMP 36.9; O2SAT 93
--- NOTE | 2022-06-06 18:16 | DI.VRAD_ITS ---
PROCEDURE INFORMATION: Exam: XR Abdomen Exam date and time: 06/06/2022 6:02 PM Age: 81 years old Clinical indication: Screening exam; Prior surgery; Patient HX: Sbo, gastrografin challenge; Assess for transit of contrast into colon/rectum TECHNIQUE: Imaging protocol: Radiologic exam of the abdomen. Views: Frontal supine view of the abdomen. 1 View. COMPARISON: CR XR ABDOMEN FLAT PLATE 06/04/2022 4:32 PM FINDINGS: Tubes, catheters and devices: Nasogastric tube in the stomach. Gastrointestinal tract: Enteric contrast is now present in transverse colon, left colon, and a tortuous appearing sigmoid colon but not definitely in the rectum. Minor gaseous distention of a loop of mid small bowel. Vasculature: Atherosclerosis. Aorto left iliac stent graft. Probably a left renal artery stent. Bones/joints: Unremarkable. IMPRESSION: Enteric contrast is now present in transverse colon, left colon, and a tortuous appearing sigmoid colon but not definitely in the rectum. Dictated and Authenticated by: Stephie Betancourt MD. Ordering:ELLA Fofana MD
[2022-06-06] MEDS: LORazepam 2 MG/ML VIAL 0.5 MG IVP (20:04)
[2022-06-06] MEDS: traZODone 100 MG TAB NG (22:36)
[2022-06-06] MEDS: risperiDONE 1 MG TAB 2 MG NG (22:36)
[2022-06-06] MEDS: cefTRIAXone 1 GM/50 ML BAG IVPB (22:37)
[2022-06-07 00:25] VITALS: BP 125/69; PULSE 120; RESP 20; TEMP 36.8; O2SAT 92
[2022-06-07 06:16] LABS: Abs Immature Grans 0.03 10^3/uL (0.0-0.06); Absolute Basophil Count 0.02 10^3/uL (0.0-0.2); Absolute Eosinophil Count 0.18 10^3/uL (0.0-0.7); Absolute Lymphocyte Count 0.94 10^3/uL (1.2-3.4); Absolute Monocyte Count 0.63 10^3/uL (0.1-0.8); Absolute Neutrophil Count 6.07 10^3/uL (1.2-6.7); Basophils % 0.3; Eosinophils % 2.3; HCT 36.8 % (36.0-46.0); HGB 11.7 g/dL (11.2-15.7); Immature Grans % 0.4; Lymphocytes % 11.9; MCH 29.7 pg (27.0-33.0); MCHC 31.8 % (32.0-36.0); MCV 93 fL (80-95); MPV 10.1 fL (8.0-11.0); Neutrophils % 77.1; Platelet Count 174 10^3/uL (130-400); RBC 3.94 10^6/uL (3.93-5.22); RDW 13.4 % (11.7-14.6); RDW-SD 46.2 fL; WBC 7.87 10^3/uL (4.4-10.8)
[2022-06-07 06:50] LABS: Anion Gap 2.9 mmol/L (3-11); BUN 21 mg/dL (7-18); CO2 33.1 mmol/L (21.0-32.0); CREATININE 0.7 mg/dL (0.55-1.02); Calcium 8.4 mg/dL (8.5-10.1); Chloride 106 mmol/L (98-107); Glucose 123 mg/dL (74-106); Potassium 3.2 mmol/L (3.5-5.1); Sodium 142 mmol/L (136-145)
--- NOTE | 2022-06-07 07:38 | W.PM.PROGNOT ---
Date of Service Date of service: 06/07/22 Time of Service: 08:00 Assessment and Plan Assessment and plan (1) SBO (small bowel obstruction): Status: Acute Assessment and plan: 81-year-old woman with a bowel obstruction and an extensive intra-abdominal surgical history. She is having bowel function and contrast is seen on imaging getting all the way into the transverse colon. She is hemodynamically stable. Abdominal exam is not really tender, but still somewhat distended making me think maybe this is more of a partial ileus than an obstruction. Overall it does not really seem like she is obstructed both radiographically and the NG tube output has been scant and is not bilious. Overall plan today: Clamp NG tube and check the residual after 4 hours. If under 250 cc and not bilious, will pull it and see how she tolerates sips of clear liquids. We will check residual at noon. Subjective Subjective Interval history since last seen: No events overnight. No clinical change. At the bedside she still describes aching abdominal discomfort that is constant. She has been passing gas and having both liquid and formed bowel movements since yesterday. X-ray yesterday evening showed that the contrast all the way into at least the transverse colon. Exam Narrative Exam Narrative: General: Nontoxic and interactive, appears comfortable Abdomen: Soft, mildly distended, grossly nontender to examination. There is certainly no peritoneal signs. NG tube has relatively minimal output. It is gastric contents only. There is no bile to it. Objective Last Vital Signs Temp 98.2 F 06/07/22 00:25 Pulse 120 H 06/07/22 00:25 Resp 20 06/07/22 00:25 BP 125/69 06/07/22 00:25 Pulse Ox 92 06/07/22 00:25 Laboratory Results - last 24 hr 06/07/22 06/07/22 06:04 06:04 WBC 7.87 RBC 3.94 Hgb 11.7 Hct 36.8 MCV 93 MCH 29.7 MCHC 31.8 L RDW 13.4 Plt Count 174 MPV 10.1 Immature Gran % 0.4 Neutrophils % 77.1 Lymphocytes % 11.9 Monocytes % 8.0 Eosinophils % 2.3 Basophils % 0.3 Nucleated RBC % 0.0 Absolute Neutrophils 6.07 Absolute Lymphocytes 0.94 L Absolute Monocytes 0.63 Absolute Eosinophils 0.18 Absolute Basophils 0.02 Sodium 142 Potassium 3.2 L Chloride 106 Carbon Dioxide 33.1 H Anion Gap 2.9 L BUN 21 H Creatinine 0.7 Est GFR (CKD-EPI 2020) 86.30 Glucose 123 H Calcium 8.4 L Magnesium 2.0 Time Spent with Patient Time Spent with Patient: <25 minutes Time was spent: ordering medications,tests, procedures and counseling the patient
[2022-06-07 07:49] VITALS: BP 116/70; PULSE 98; RESP 18; TEMP 36.7; O2SAT 94
[2022-06-07] MEDS: LORazepam 2 MG/ML VIAL IV ×2 (07:57→12:56)
--- NOTE | 2022-06-07 07:57 | PCNE_ITS ---
Date of service: 06/07/22 Time of Service: 07:57 History of Present Illness History of Present Illness Chief Complaint: VOmiting Narrative: From H and P History of Present Illness History of Present Illness?Chief Complaint: abdominal pain and vomiting?Narrative: 81 year old female with history of mulitple abdominal surgeries including AAA repair, hemicolectomy for ischemic bowel, and apendectomy, COPD with recent admission for exacerbation associated with RSV, who presented to the emergency room with 2 days of progressive lower abdominal pain and vomiting.? She states it started with crampy pain on Tuesday, 2 days prior to admission.? Mid abdomen to the right side and right lower quadrant, moderate to severe intensity.? She feels bloated and more firm there.? She started vomiting later that same day.? Pain improves with vomiting but then comes back.? No fevers.? She denies any changes in diet, new medication, or other factors that may have caused the pain to start.? Her last BM was the morning prior to the pain starting on Tuesday.? She states she has never had this problem in the past, though she did have a hard time remembering her own medical history such as her previous surgeries. Deb had an NG tube placed and was seen by surgery already.? She is no longer vomiting.? She is urinating.? ? Interim Hx: Deb was admitted for bowel obstruction. She had an NG tube placed and it is resolving. I saw her this morning and there was still considerable drainage from the NG tube. It is clamped now. She did have 2 glasses of water and is hoping to find out if she can have the NG tube removed. Her daughter is in the room. They are hopeful that things will resolve and that she will be able to go home again. Consults Consult date: 06/07/22 Requesting physician: Sekou Guerrero Assessment and Plan Assessment and plan (1) Cystitis: Status: Acute (2) SBO (small bowel obstruction): Status: Acute (3) Chronic heart failure with preserved ejection fraction (HFpEF): Status: Acute (4) Anxiety: Status: Chronic Assessment and plan: At Deb's last admission she adamantly stated that she did not want surgical intervention (see last admission PAlliative note). Today she is wavering about what she wants to do. She wants to please her family and some her choices are to do what they want. She also says she wants to go home elizabeth. She is feeling better and improving. Hopefully she will not have to make a decision regarding surgery. We discussed her choice to go home and stay home - hopefully. We discussed keeping her stools more to the loose side, use miralax and titrate to looseness, but not watery. Hold the miralax if stools are watery. Both she and her daughter, Mimi, feel that its possible to do this understanding that it may not work. Deb always has wanted to stay home and does not like being away from home. Continue her home meds. Hospitalist team is doing a good job in caring for her other comorbidities Review of Systems Narrative: I want to go home. She states that she is feeling better. I had seen her in the morning and she felt that her stomach was still very distended but this evening she is doing better. 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 plaque per [facility] onychomycosis Cognitive change Complete edentulism, unspecified Congestive heart failure Conjunctivitis COPD (chronic obstructive pulmonary disease) with emphysema CVD (cardiovascular disease) Dependence on supplemental oxygen Depression a. with psychotic features Diarrhea (11/19/14) 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 02/18-09/19, normal metanephrines, normal dexamethasone suppression. 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 hypokalemia b. hypomagnesemia Elevated LDH Elevated serum lactate dehydrogenase (LDH) Encounter for monitoring diuretic therapy Essential (primary) hypertension 06/01/13 Hiatus hernia syndrome 12/05/14 [facility] [place] EGD History of tobacco use 100pack/years History of tobacco use Hyperlipidemia Increased body mass index Ischemic bowel disease 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) Palliative care patient Palpitations 08/26/14; FREQ PVC BY HOLTER Palpitations Pulmonary hypertension Right hip pain Right pontine CVA [facility]-01/30/16; 8X5 mm RUQ abdominal pain Seborrheic keratosis (01/01/16) punch/shave biopsy skin of left arm Seborrheic keratosis (01/01/16) Shortness of breath (10/14/16) SVT (supraventricular tachycardia) (09/15/14) Tachycardia Urinary frequency (08/21/15) Vascular insufficiency of intestine (06/12/15) Weight loss (04/02/14) Weight loss, abnormal (~06/11/21) 30# in last yr Surgical History Appendectomy Biopsy, Soft Tissue (01/01/16) Punch/shave biospy of skin of left arm, seborrheic keratosis Colectomy (09/18/14) DR. GRAJEDA Hemicolectomy [facility]; 09/15/14; RIGHT History of bilateral ligation of fallopian tubes History of partial colectomy 09/15/14 right hemicolectomy w/ileocolic anastomosis History of partial surgical removal of colon (09/15/14) Ligation of fallopian tube S/P AAA repair S/P tubal ligation Status post appendectomy Family History Mother Essential hypertension Alzheimer's disease Father Heart disease Breast cancer Prostate cancer Sister Myocardial infarction Sister Myocardial infarction Brother Cancer Sister No problems noted. Sister No problems noted. Brother Substance abuse Brother Substance abuse Brother Substance abuse Cancer Son No problems noted. Daughter No problems noted. Social History Smoking/Tobacco Use Status: Former Tobacco Use Smoking risk assessment performed?: Yes Alcohol Intake: never Drug use: Never Substance use type: does not use Household members: other Details: 4 Pets and animals: Yes Pets and animals: cat(s) and dog(s) Current gender identity: decline to answer What is your relationship status?: refused to answer How often do you talk on the phone with friends or family?: decline to answer How often do you get together with friends or relatives?: decline to answer How often do you attend amish or denominational services?: decline to answer Do you belong to any clubs or organized social groups?: decline to answer Panel score (0-1 are the most socially isolated patients): 0 What type of physical activity do you participate in: none Lelo/Mandaen: No preference Special lelo needs: No Do you feel safe at home: Yes Do you feel safe in your relationship?: Yes Exam Narrative Exam Narrative: Deb is lying in her hospital bed. Her heart is rate controlled and is fairly r egular. Lungs good air movement she does have a few rhonchi and rales but coughs and some of these clear. She has bowel sounds in all 4 quadrants. Her abdomen is mildly tender but not tense. Mood?appears to be at baseline to me. She is single minded and that she wants to go home. She is anxious but not more so than usual Results Last Vital Signs Temp 98.1 F 06/07/22 07:49 Pulse 98 H 06/07/22 07:49 Resp 18 06/07/22 07:49 BP 116/70 06/07/22 07:49 Pulse Ox 94 06/07/22 07:49 Labs 06/07/22 06:04 06/07/22 06:04 Labs: Laboratory Results - last 24 hr 06/07/22 06/07/22 06:04 06:04 WBC 7.87 RBC 3.94 Hgb 11.7 Hct 36.8 MCV 93 MCH 29.7 MCHC 31.8 L RDW 13.4 Plt Count 174 MPV 10.1 Immature Gran % 0.4 Neutrophils % 77.1 Lymphocytes % 11.9 Monocytes % 8.0 Eosinophils % 2.3 Basophils % 0.3 Nucleated RBC % 0.0 Absolute Neutrophils 6.07 Absolute Lymphocytes 0.94 L Absolute Monocytes 0.63 Absolute Eosinophils 0.18 Absolute Basophils 0.02 Sodium 142 Potassium 3.2 L Chloride 106 Carbon Dioxide 33.1 H Anion Gap 2.9 L BUN 21 H Creatinine 0.7 Est GFR (CKD-EPI 2020) 86.30 Glucose 123 H Calcium 8.4 L Magnesium 2.0 Imaging Additional studies: CT Scan Abd/Pelvis IMPRESSION: 1. Findings suspicious for small bowel obstruction. 2. Small amount of abdominal pelvic ascites. 3. Diffuse thickening of the wall of the urinary bladder with bladder diverti cula.? There is also small focus of air in the dependent portion of the urinary bladder.? Inflammatory or infectious cystitis should be considered. 4. Stable appearance of the gallbladder with cholelithiasis. Abd FINDINGS: A nasogastric tube projects in the stomach.? There is contrast seen in the colon, in the distal transverse, splenic flexure through the sigmoid.? There has been marked interval improvement of small bowel dilatation.? Mildly dilated small bowel loop is noted in the mid abdomen.? Aortoiliac stents again noted. IMPRESSION: Marked improvement in small bowel dilatation.? Contrast seen in distal colon.
[2022-06-07 07:58] VITALS: PULSE 98
[2022-06-07] MEDS: Apixaban 5 MG TAB NG ×2 (07:58→20:33)
[2022-06-07] MEDS: Digoxin 0.125 MG TAB NG (07:58)
[2022-06-07] MEDS: Sertraline 50 MG TAB NG (07:58)
[2022-06-07] MEDS: Budesonide/Formoterol 160/4.5 6 GM 60 PUFF INH IH ×2 (09:18→19:46)
[2022-06-07 09:21] VITALS: O2SAT 95
--- NOTE | 2022-06-07 09:40 | W.NUTCONSULT ---
Date of service: 06/07/22 Time of Service: 09:40 Nutritional Consult ASSESSMENT: Deb admitted with partial ileus with extensive medical hx. TPN was initiated 06/05/22 (D10/4.25)@83cc/hour, 20% lipid 250 ml qd providing total of: 1520 kcal, 84 g protein, 50 g fat. NPO but allowed sips/chips today. NG tube removed and hoping to advance diet shortly Estimated Needs: (BEE) x 1.2 = 1348, 84 g pro (kgx1.2), 1400 ml fluid NUTRITIONAL DIAGNOSIS: Inability to take in adequate nutrients and fluid by mouth secondary to partial ileus INTERVENTION: NPO TPN as above MONITORING AND EVALUATION: Will monitor po intake. Once able to consume 50% meals, recommend d/c TPN Time Spent in Nutritional Counseling and Treatment: 0
[2022-06-07] MEDS: ACETAMINOPHEN 1,000 MG/100 ML BTL 400 MG IVPB (10:35)
--- NOTE | 2022-06-07 14:34 | CMPROGNOTE_ITS ---
- If Service Date Differs Date of service: 06/07/22 Time of Service: 14:34 Care Management Progress Note S/O: Deb was lying in bed when CM met with her. She stated that she is doing ok today. Her daughter was in the room visiting. Per report, Palliative will be meeting with Deb and Mimi this afternoon to discuss her goals of care. She is currently being treated for her small bowel obstruction non operatively, with an NG tube in place. CM will continue to follow. A: Deb is an 81 year old female admitted to [facility] on 06/04/22 with a SBO. P: Anticipate, Deb will be discharged home when medically cleared by provider with a resumption of RN, PT. She will follow up with community providers and discharge plan of care as prescribed. Family will drive her home when ready. Pt declines referral to [facility]. CM will continue to follow.
--- NOTE | 2022-06-07 16:20 | NUR.NOTE ---
Nursing Note: NG tube removed at bedside w/o complication. Pt eating ice chips.
[2022-06-07] MEDS: Lactated Ringers 1,000 ML 100 ML IV (17:12)
--- NOTE | 2022-06-07 18:22 | W.PM.PROGNOT ---
Date of Service Date of service: 06/07/22 Time of Service: 18:22 Assessment and Plan Assessment and plan (1) Cystitis: Status: Acute Assessment and plan: Ceftriaxone course completed (2) SBO (small bowel obstruction): Status: Acute Assessment and plan: Imaging supports SBO. No hx of SBO, has had several abdominal surgeries including hemicolectomy, not a candidate for surgery here, and she prefers to avoid surgery. h/o ulcerative proctitis and ischemic bowel disease; follow inflammatory markers. She continues to improve with NG tube. Continue NPO overnight, conservative IV fluids given h/o HFpEF. Clamped NGT for sev'l hours, only 50 ml, pullled NGT, tolerating clears If viky full fluids will stop TPN (3) Chronic heart failure with preserved ejection fraction (HFpEF): Status: Acute Assessment and plan: Euvolemic, no evidence of active CHF. (4) Anxiety: Status: Chronic Assessment and plan: Anxious to go home, understands she is closer to going home with NGT coming out. (5) COPD (chronic obstructive pulmonary disease): Status: Chronic Assessment and plan: Stable at baseline, continue outpatient inhalers (6) Atrial fibrillation: Status: Chronic Assessment and plan: continue digoxin for rate - Cotninue apixaban for stroke prophylaxis. Qualifiers: Atrial fibrillation type: unspecified Qualified Code(s): I48.91 - Unspecified atrial fibrillation (7) Depression: Assessment and plan: Long history of depression with psychotic features in the past. Stable now. Continue outpatient medication (8) DVT prophylaxis: Assessment and plan: She is on apixaban (9) Discharge planning issues: Status: Acute Assessment and plan: Stable on medical floor. She confirms DNR/DNI status. Home when stable with no services anticipated Subjective Subjective Patient reports: no new complaints, feels better, voiding w/o difficulty, bowel movement and afebrile; denies shortness of breath Interval history since last seen: Deb reports over all feeling better and continues to tolerate the NGT Exam Narrative Exam Narrative: GEN: Alert and oriented x 3, pleasant and cooperative, gives linear history but doesn't remember details of her medical history like surgies. No acute distress at rest. Constant lip smacking. HEENT: Head atraumatic. Conjunctiva clear, no icterus. PEERL, EOMI. no rhinorrhea. MM slightly dry, edentulous, OP benign. Neck is supple with no masses or lymphadenopathy, trachea midline LUNGS: CTAB with normal effort CV: Irregularly irregular with no murmurs, gallops, or rubs. ABD: hypoactive bowel sounds. Soft, moderate diffuse distension. no fluid wave. No masses. Midline scar. Mild right mid to lower abdominal tendernesses. No guarding or rebound. EXT: no cyanosis, clubbing, or edema MSK: No joint redness or swelling NEURO: CN 2-12 grossly intact. Normal movement of 4 extremities. Normal speech and coordination SKIN: No rashes or open wounds. bruising on dorsal hands/wrists. PSYCH: normal mood and affect. no hallucinations evident. Objective Last Vital Signs Temp 36.7 C 06/07/22 07:49 Pulse 98 H 06/07/22 07:58 Resp 18 06/07/22 07:49 BP 116/70 06/07/22 07:49 Pulse Ox 95 06/07/22 09:21 Laboratory Results - last 24 hr 06/07/22 06/07/22 06:04 06:04 WBC 7.87 RBC 3.94 Hgb 11.7 Hct 36.8 MCV 93 MCH 29.7 MCHC 31.8 L RDW 13.4 Plt Count 174 MPV 10.1 Immature Gran % 0.4 Neutrophils % 77.1 Lymphocytes % 11.9 Monocytes % 8.0 Eosinophils % 2.3 Basophils % 0.3 Nucleated RBC % 0.0 Absolute Neutrophils 6.07 Absolute Lymphocytes 0.94 L Absolute Monocytes 0.63 Absolute Eosinophils 0.18 Absolute Basophils 0.02 Sodium 142 Potassium 3.2 L Chloride 106 Carbon Dioxide 33.1 H Anion Gap 2.9 L BUN 21 H Creatinine 0.7 Est GFR (CKD-EPI 2020) 86.30 Glucose 123 H Calcium 8.4 L Magnesium 2.0 Time Spent with Patient Time Spent with Patient: 25-34 minutes Time was spent: preparing to see the patient(eg.review tests), ordering medications,tests, procedures, referring, communicating with other health health care / medical job titles, indepentently interpreting results, counseling the patient and care coordination
[2022-06-07] MEDS: traZODone 100 MG TAB NG (20:33)
[2022-06-07] MEDS: risperiDONE 1 MG TAB 2 MG NG (20:33)
[2022-06-07 20:43] VITALS: BP 140/92; PULSE 101; RESP 16; TEMP 36.7; O2SAT 94
[2022-06-08] MEDS: cefTRIAXone 1 GM/50 ML BAG IVPB ×2 (00:10→22:12)
[2022-06-08] MEDS: Lactated Ringers 1,000 ML 100 ML IV (03:55)
[2022-06-08 07:37] VITALS: BP 129/76; PULSE 125; RESP 20; TEMP 36.3; O2SAT 91
--- NOTE | 2022-06-08 08:10 | W.PM.PROGNOT ---
Objective Last Vital Signs Temp 97.3 F L 06/08/22 07:37 Pulse 125 H 06/08/22 07:37 Resp 20 06/08/22 07:37 BP 129/76 06/08/22 07:37 Pulse Ox 91 L 06/08/22 07:37
[2022-06-08] MEDS: Budesonide/Formoterol 160/4.5 6 GM 60 PUFF INH IH ×2 (08:13→19:54)
[2022-06-08 08:23] VITALS: PULSE 125
[2022-06-08] MEDS: Sertraline 50 MG TAB NG (08:23)
[2022-06-08] MEDS: Digoxin 0.125 MG TAB NG (08:23)
[2022-06-08] MEDS: LORazepam 2 MG/ML VIAL IV ×2 (08:23→12:43)
[2022-06-08] MEDS: Apixaban 5 MG TAB NG (08:24)
--- NOTE | 2022-06-08 08:25 | CMPROGNOTE_ITS ---
- If Service Date Differs Date of service: 06/08/22 Time of Service: 08:25 Care Management Progress Note S/O: Deb was sitting in her chair watching TV when CM met with her. She is feeling better and is planning to discharge home tomorrow. Deb has no concerns at this time. A: Deb is an 81 year old female admitted to [facility] on 06/04/22 with a SBO. P: Anticipate, Deb will be discharged home when medically cleared by provider with a resumption of RN, PT. She will follow up with community providers and discharge plan of care as prescribed. Family will drive her home when ready. Pt declines referral to [facility]. CM will continue to follow.
--- NOTE | 2022-06-08 08:32 | W.PM.PROGNOT ---
Date of Service Date of service: 06/08/22 Time of Service: 08:32 Assessment and Plan Assessment and plan (1) SBO (small bowel obstruction): Status: Acute Assessment and plan: 81-year-old woman who had a small bowel obstruction that seems to have resolved. She is having good bowel function. Her abdominal exam is completely benign and subjectively, for the first time she denies any abdominal discomfort. At this point her diet can be advanced as tolerated and hopefully this will not happen again. Surgery signing off Subjective Subjective Interval history since last seen: Patient reports much improvement. I feel pretty good today. She is denying abdominal pain. She is sitting in the chair and smiling. She denies nausea and has not been vomiting. She is tolerating sips of clears. She has continued to have bowel movements. Exam Narrative Exam Narrative: General: Interactive and nontoxic and comfortable Neuro: Alert and oriented x3 Psych: Significantly improved affect and mood. Abdomen: Soft, nondistended and nontender. Const General: cooperative, healthy appearing and comfortable Orientation: alert and awake Resp Effort & Inspection: normal respiratory effort, no audible wheezes and no cough GI Inspection: normal to inspection Palpation: soft, no guarding and nontender Objective Last Vital Signs Temp 36.3 C L 06/08/22 07:37 Pulse 125 H 06/08/22 08:23 Resp 20 06/08/22 07:37 BP 129/76 06/08/22 07:37 Pulse Ox 91 L 06/08/22 07:37 Time Spent with Patient Time Spent with Patient: <25 minutes Time was spent: counseling the patient
[2022-06-08 08:58] LABS: Abs Immature Grans 0.04 10^3/uL (0.0-0.06); Absolute Basophil Count 0.02 10^3/uL (0.0-0.2); Absolute Eosinophil Count 0.11 10^3/uL (0.0-0.7); Absolute Lymphocyte Count 0.78 10^3/uL (1.2-3.4); Absolute Monocyte Count 0.42 10^3/uL (0.1-0.8); Absolute Neutrophil Count 6.71 10^3/uL (1.2-6.7); Basophils % 0.2; Eosinophils % 1.4; HGB 10.1 g/dL (11.2-15.7); Immature Grans % 0.5; Lymphocytes % 9.7; MCH 29.4 pg (27.0-33.0); MCHC 30.6 % (32.0-36.0); MCV 96 fL (80-95); MPV 10.5 fL (8.0-11.0); Monocytes % 5.2; Platelet Count 158 10^3/uL (130-400); RBC 3.44 10^6/uL (3.93-5.22); RDW 13.6 % (11.7-14.6); WBC 8.08 10^3/uL (4.4-10.8)
[2022-06-08 10:28] LABS: Anion Gap 4.1 mmol/L (3-11); BUN 14 mg/dL (7-18); CO2 29.9 mmol/L (21.0-32.0); CREATININE 0.6 mg/dL (0.55-1.02); Calcium 8.4 mg/dL (8.5-10.1); Chloride 105 mmol/L (98-107); Estimated GFR 89.56 (mL/min/1.73m2); Glucose 138 mg/dL (74-106); Magnesium 1.8 mg/dL (1.8-2.4); Sodium 139 mmol/L (136-145)
--- NOTE | 2022-06-08 10:29 | CHAPLAIN ---
Deb was up in the chair when visited. She said she is hoping to go home today. She here for SBO and recently had the NG tube removed. She lives with her daughter. Deb told me she had lots of visitors yesterday, and really just wants to be at home.
[2022-06-08] MEDS: Normal Saline Flush 10 ML SYR IVP (12:44)
--- NOTE | 2022-06-08 13:51 | W.PM.PROGNOT ---
Date of Service Date of service: 06/08/22 Time of Service: 13:51 Assessment and Plan Assessment and plan (1) SBO (small bowel obstruction): Status: Acute Assessment and plan: tolerating full liquids, will slowly advance diet stop IV fluids stop TPN, will taper and discontinue per protocol (2) Chronic heart failure with preserved ejection fraction (HFpEF): Status: Acute Assessment and plan: Euvolemic, no evidence of active CHF. (3) Anxiety: Status: Chronic Assessment and plan: at baseline, continue home medication (4) COPD (chronic obstructive pulmonary disease): Status: Chronic Assessment and plan: Stable at baseline, continue outpatient inhalers (5) Atrial fibrillation: Status: Chronic Assessment and plan: continue digoxin for rate -continue apixaban for stroke prophylaxis. 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 Stable now. Continue outpatient medication (7) DVT prophylaxis: Assessment and plan: She is on apixaban (8) Discharge planning issues: Status: Acute Assessment and plan: Stable on medical floor. She confirms DNR/DNI status. Home when stable with no services anticipated discussed with DR Guerrero. Subjective Subjective Patient reports: no new complaints, feels better, tolerating liquids well and bowel movement Interval history since last seen: up in chair, llanos draining clear yellow urine, tolerating full liquids well. Exam Const General: cooperative and comfortable Nutritional Appearance: overweight Orientation: alert and awake HENIL Head: normal to inspection and normocephalic Mouth: oral mucosae normal Neck Neck: normal visual inspection Resp Effort & Inspection: normal respiratory effort GI Inspection: normal to inspection and distended (round) Palpation: soft, no guarding and nontender Skin General skin exam: no rashes or lesions noted Neuro General: patient alert and patient awake Objective Last Vital Signs Temp 36.3 C L 06/08/22 07:37 Pulse 125 H 06/08/22 08:23 Resp 20 06/08/22 07:37 BP 129/76 06/08/22 07:37 Pulse Ox 91 L 06/08/22 07:37 Laboratory Results - last 24 hr 06/08/22 06/08/22 06/08/22 07:39 07:39 10:10 WBC 8.08 RBC 3.44 L Hgb 10.1 L Hct 33.0 L MCV 96 H MCH 29.4 MCHC 30.6 L RDW 13.6 Plt Count 158 MPV 10.5 Immature Gran % 0.5 Neutrophils % 83.0 Lymphocytes % 9.7 Monocytes % 5.2 Eosinophils % 1.4 Basophils % 0.2 Nucleated RBC % 0.0 Absolute Neutrophils 6.71 H Absolute Lymphocytes 0.78 L Absolute Monocytes 0.42 Absolute Eosinophils 0.11 Absolute Basophils 0.02 Sodium Cancelled 139 Potassium Cancelled 3.0 L Chloride Cancelled 105 Carbon Dioxide Cancelled 29.9 Anion Gap Cancelled 4.1 BUN Cancelled 14 Creatinine Cancelled 0.6 Est GFR (CKD-EPI 2020) Cancelled 89.56 Glucose Cancelled 138 H Calcium Cancelled 8.4 L Magnesium Cancelled 1.8 Time Spent with Patient Time Spent with Patient: 25-34 minutes Time was spent: preparing to see the patient(eg.review tests), obtaining and/or reviewing separately otained hiistory, ordering medications,tests, procedures and indepentently interpreting results
[2022-06-08 14:42] VITALS: BP 137/79; PULSE 88; RESP 18; TEMP 36.3; O2SAT 93
[2022-06-08] MEDS: Potassium Chloride Liquid 20 MEQ PKT PO ×2 (14:54→17:37)
[2022-06-08] MEDS: Apixaban 5 MG TAB PO (20:00)
[2022-06-08] MEDS: LORazepam 2 MG/ML VIAL 0.5 MG IVP (20:00)
[2022-06-08] MEDS: risperiDONE 1 MG TAB 2 MG PO (22:12)
[2022-06-08] MEDS: traZODone 100 MG TAB PO (22:12)
[2022-06-08 22:46] VITALS: BP 135/75; PULSE 88; RESP 18; TEMP 36.8; O2SAT 94
[2022-06-09 06:00] LABS: HCT 35.9 % (36.0-46.0); HGB 11.2 g/dL (11.2-15.7); MCH 28.9 pg (27.0-33.0); MCHC 31.2 % (32.0-36.0); MCV 93 fL (80-95); MPV 10.1 fL (8.0-11.0); Platelet Count 168 10^3/uL (130-400); RBC 3.87 10^6/uL (3.93-5.22); RDW 13.6 % (11.7-14.6); RDW-SD 46.6 fL; WBC 8.06 10^3/uL (4.4-10.8)
[2022-06-09 06:08] LABS: Anion Gap 6.1 mmol/L (3-11); BUN 11 mg/dL (7-18); CO2 27.9 mmol/L (21.0-32.0); CREATININE 0.6 mg/dL (0.55-1.02); Calcium 8.2 mg/dL (8.5-10.1); Chloride 107 mmol/L (98-107); Estimated GFR 89.56 (mL/min/1.73m2); Glucose 102 mg/dL (74-106); Potassium 3.6 mmol/L (3.5-5.1); Sodium 141 mmol/L (136-145)
[2022-06-09 06:12] LABS: PHOSPHORUS 2.4 mg/dL (2.6-4.7)
[2022-06-09 06:31] LABS: Magnesium 1.8 mg/dL (1.8-2.4)
[2022-06-09 07:23] VITALS: BP 115/72; PULSE 105; RESP 18; TEMP 36.9; O2SAT 92
--- NOTE | 2022-06-09 08:38 | W.PALPGNOTE ---
Date of service: 06/08/22 Time of Service: 15:00 Assessment and Plan Assessment and plan (1) SBO (small bowel obstruction): Status: Acute (2) Chronic heart failure with preserved ejection fraction (HFpEF): Status: Acute Assessment and plan: Deb has resolved her small bowel obstruction. She is doing very well. She will be going home and keeping her diet more soft. We did talk about next incident as this is been 2 times within the last month. Her daughter is very understanding of the complexity of Deb's present condition. Deb stated that she really did not want to have an operation and likely for the second time she was able to resolve her problem without moving forward with surgery. We will continue to follow this woman. If necessary I will do home visits. Her daughter is in close contact with me. Subjective Subjective Interval history since last seen: Deb is doing very well. They are advancing her diet and she is handling this fine. She does not have any abdominal pain. She is anxious to go home Exam Narrative Exam Narrative: Deb is an 81-year-old woman. She is keen on going home. She is oriented x3. Her heart is regular with a systolic murmur. Her abdomen has good bowel sounds and although still mildly tender not distended. Objective Last Vital Signs Temp 98.4 F 06/09/22 07:23 Pulse 105 H 06/09/22 07:23 Resp 18 06/09/22 07:23 BP 115/72 06/09/22 07:23 Pulse Ox 92 06/09/22 07:23 Laboratory Results - last 24 hr 06/08/22 06/08/22 06/08/22 07:39 07:39 10:10 WBC 8.08 RBC 3.44 L Hgb 10.1 L Hct 33.0 L MCV 96 H MCH 29.4 MCHC 30.6 L RDW 13.6 Plt Count 158 MPV 10.5 Immature Gran % 0.5 Neutrophils % 83.0 Lymphocytes % 9.7 Monocytes % 5.2 Eosinophils % 1.4 Basophils % 0.2 Nucleated RBC % 0.0 Absolute Neutrophils 6.71 H Absolute Lymphocytes 0.78 L Absolute Monocytes 0.42 Absolute Eosinophils 0.11 Absolute Basophils 0.02 Sodium Cancelled 139 Potassium Cancelled 3.0 L Chloride Cancelled 105 Carbon Dioxide Cancelled 29.9 Anion Gap Cancelled 4.1 BUN Cancelled 14 Creatinine Cancelled 0.6 Est GFR (CKD-EPI 2020) Cancelled 89.56 Glucose Cancelled 138 H Calcium Cancelled 8.4 L Phosphorus Magnesium Cancelled 1.8 06/09/22 06/09/22 06/09/22 05:30 05:30 05:30 WBC 8.06 RBC 3.87 L Hgb 11.2 Hct 35.9 L MCV 93 MCH 28.9 MCHC 31.2 L RDW 13.6 Plt Count 168 MPV 10.1 Immature Gran % Neutrophils % Lymphocytes % Monocytes % Eosinophils % Basophils % Nucleated RBC % Absolute Neutrophils Absolute Lymphocytes Absolute Monocytes Absolute Eosinophils Absolute Basophils Sodium 141 Potassium 3.6 Chloride 107 Carbon Dioxide 27.9 Anion Gap 6.1 BUN 11 Creatinine 0.6 Est GFR (CKD-EPI 2020) 89.56 Glucose 102 Calcium 8.2 L Phosphorus Magnesium 1.8 06/09/22 05:30 WBC RBC Hgb Hct MCV MCH MCHC RDW Plt Count MPV Immature Gran % Neutrophils % Lymphocytes % Monocytes % Eosinophils % Basophils % Nucleated RBC % Absolute Neutrophils Absolute Lymphocytes Absolute Monocytes Absolute Eosinophils Absolute Basophils Sodium Potassium Chloride Carbon Dioxide Anion Gap BUN Creatinine Est GFR (CKD-EPI 2020) Glucose Calcium Phosphorus 2.4 L Magnesium
[2022-06-09] MEDS: Apixaban 5 MG TAB PO (08:39)
[2022-06-09] MEDS: LORazepam 2 MG/ML VIAL IV (08:39)
[2022-06-09] MEDS: Potassium Chloride Liquid 20 MEQ PKT PO ×2 (08:39→12:30)
[2022-06-09] MEDS: Sertraline 50 MG TAB NG (08:40)
[2022-06-09] MEDS: Budesonide/Formoterol 160/4.5 6 GM 60 PUFF INH IH (08:55)
[2022-06-09 09:37] VITALS: PULSE 105
[2022-06-09] MEDS: Digoxin 0.125 MG TAB PO (09:37)
--- NOTE | 2022-06-09 11:06 | W.PM.DS.N ---
Date of service: 06/09/22 Time of Service: 11:06 DS: Diagnosis Discharge Diagnosis (1) SBO (small bowel obstruction): Status: Acute Discharge Plan Disposition Patient Disposition: Home W/Home Health Services Condition: Stable Discharge Details Reason For Visit: Small Bowel Obstruction Admit Date/Time: 06/04/22 15:04 Admit Provider: Sekou Guerrero Attending Provider: Sekou Guerrero Primary Care Provider: Carolin Salinas Hospital Course Hospital Course: This is an 81-year-old female patient who presented to the emergency department with complaints of nausea and vomiting. She has a history of COPD CHF and multiple abdominal surgeries including hemicolectomy and appendectomy. Her work-up in the emergency department was concerning for small bowel obstruction. An NG tube was placed and she was admitted to the hospitalist services. General surgery was consulted and following. She was high risk for intra and postop complications so palliative care consultation was obtained. She continued to improve with conservative management with bowel rest and NG tube decompression. Hemodynamically she remained stable. Symptoms slowly resolved her NG tube was discontinued and her diet was slowly advanced. She is now tolerating p.o. and is safe for discharge to home. She will be discharged home with resumption of home health services. She was treated with a course of ceftriaxone for cystitis and had no further symptoms or complications from that. There are no new prescriptions at discharge. Her discharge was discussed with Dr. Guerrero Home Meds and New Rx's Prescriptions: Continued magnesium oxide 400 mg (241.3 mg magnesium) tablet 400 mg PO DAILY Qty: 90 5RF fluticasone propionate 220 mcg/actuation HFA aerosol inhaler 1 puff IH BID Qty: 12 12RF Patient Comments: not taking potassium chloride [Klor-Con M20] 20 mEq tablet,ER particles/crystals 20 meq PO BID Qty: 180 5RF risperidone [Risperdal] 2 mg tablet 2 mg PO HS Qty: 90 5RF sertraline 50 mg tablet 50 mg PO DAILY Qty: 90 5RF trazodone 100 mg tablet 100 mg PO HS Qty: 90 5RF Lactobacillus acidophilus 1 EACH tablet 1 ea PO BID aspirin [Aspir-81] 81 MG tablet,delayed release (DR/EC) 81 mg PO DAILY Eliquis 5 mg tablet 5 mg PO BID Qty: 180 5RF lorazepam 0.5 mg tablet 0.5 mg PO TID PRN Qty: 270 4RF digoxin 125 mcg (0.125 mg) tablet 125 mcg PO DAILY Qty: 90 5RF fluticasone propion-salmeterol [Advair Diskus] 500-50 mcg/dose blister with device 1 inh inhalation BID Qty: 180 5RF furosemide 20 mg tablet 20 mg PO DAILY Qty: 90 5RF Rx Instructions: hold for 3 days then return to 20 mg acetaminophen [Tylenol] 325 MG tablet 650 mg Q8H PRN PRN fluticasone propion-salmeterol [Advair Diskus] 500-50 mcg/dose blister with device 1 inh INHALATION BID Patient Comments: INHALE 1 PUFF BY MOUTH TWO TIMES A DAY Discontinued Spiriva with HandiHaler 18 mcg capsule, w/inhalation device 1 cap inhalation DAILY Qty: 90 3RF Patient Comments: not taking Rx Instructions: puncture 1 cap using device; one dose = 2 inhalations Immodium 1 - 2 cap PO PRN Patient Comments: not taking albuterol sulfate 90 mcg/actuation HFA aerosol inhaler 2 puff IH Q4H PRN (Reason: shortness of breath) Qty: 18 6RF Patient Comments: not taking prednisone 10 mg tablet 10 mg PO DIRECTED Qty: 6 0RF Patient Comments: not taking Rx Instructions: 20 mg daily x 2 days; 10 mg daily x 2 day - stop Discharge Instructions Instructions: Bowel Obstruction (DC) Additional Instructions: advance diet as tolerated drink 6-8 glasses of water to stay well hydrated Stand Alone Forms: Nursing Discharge Form Referrals: Carolin Salinas MD, [place] [Primary Care Provider] - (Per patients Daughter she will call to make the Appointment ) Activity:: Activity as Tolerated Equipment/Supplies:: No Equipment Needed Diet:: As Tolerated Discharge Orders Discharge Orders: Discharge Order (Routine); Ordered 06/09/22 Ordered By: Ella Koenig Discharge Data Discharge Date/Time-TO BE ENTERED AT DEPARTURE: 06/09/22 15:25 DS: Summary Time Spent with Patient providing and/or coordinating discharge services: Less than 30 minutes Status at Discharge Functional status at discharge: uses cane/walker Overall status at discharge: patient is progressing back to baseline Mental Status: mental status grossly normal Speech and Movement: speech and movement normal Mood: congruent mood Affect: normal affect Exam Const General: cooperative and comfortable Nutritional Appearance: overweight Orientation: alert and awake HENMT Head: normal to inspection and normocephalic Mouth: oral mucosae normal Neck Neck: normal visual inspection Resp Effort & Inspection: normal respiratory effort GI Inspection: normal to inspection and distended (round) Palpation: soft, no guarding and nontender Skin General skin exam: no rashes or lesions noted Neuro General: patient alert and patient awake Psych Mental Status: mental status grossly normal Speech and Movement: speech and movement normal Mood: congruent mood Affect: normal affect DS: Data Vitals/I&O Vitals and I&O: Vital Signs Temperature 36.9 C 06/09/22 07:23 Temperature Source Tympanic 06/09/22 07:23 Pulse 105 H 06/09/22 09:37 Pulse Rhythm Irregular 06/09/22 07:45 Respiratory Rate 18 06/09/22 07:23 Respiratory Effort Normal, Non-Labored 06/09/22 07:45 Respiratory Depth Normal 06/09/22 07:45 Respiratory Pattern Normal 06/09/22 07:45 Blood Pressure 115/72 06/09/22 07:23 Blood Pressure Position Sitting 06/04/22 11:19 Pulse Oximetry 92 06/09/22 07:23 Oxygen Delivery Method Room Air 06/09/22 07:23 Oxygen Flow Rate 0 06/09/22 07:23 Pain Level 0 06/09/22 07:23 Comment Informed RN 06/07/22 00:25 Intake & Output 06/08/22 06/08/22 06/09/22 11:59 23:59 11:59 Intake Total 2186 / 3660.483 1474.483 / 3660.483 1030.517 / 1030.517 Output Total 2750 / 3875 1125 / 3875 500 / 500 Balance -564 / -214.517 349.483 / -214.517 530.517 / 530.517 Intake: IV 2186 / 3660.483 1474.483 / 3660.483 550.517 / 550.517 Oral 480 / 480 Output: Urine 2750 / 3775 1025 / 3775 500 / 500 Stool 100 / 100 Other: Urine Color Pale Yellow Straw Urine Appearance Clear Cloudy Clear Urine Odor None Comment unmeasured pt was Very incontinent Stool Size Smear Small Stool Characteristics Liquid Soft Voiding Methods Indwelling Catheter Bedside Commode Diaper Incontinent Data Completed and Pending Labs on day of discharge: Labs from last 24 hours 06/09/22 06/09/22 06/09/22 05:30 05:30 05:30 WBC 8.06 RBC 3.87 L Hgb 11.2 Hct 35.9 L MCV 93 MCH 28.9 MCHC 31.2 L RDW 13.6 Plt Count 168 MPV 10.1 Sodium Potassium Chloride Carbon Dioxide Anion Gap BUN Creatinine Est GFR (CKD-EPI 2020) Glucose Calcium Phosphorus 2.4 L Magnesium 1.8 06/09/22 05:30 WBC RBC Hgb Hct MCV MCH MCHC RDW Plt Count MPV Sodium 141 Potassium 3.6 Chloride 107 Carbon Dioxide 27.9 Anion Gap 6.1 BUN 11 Creatinine 0.6 Est GFR (CKD-EPI 2020) 89.56 Glucose 102 Calcium 8.2 L Phosphorus Magnesium PFSH All Active Problems (Updated 06/08/22 @ 13:54 by Ella Koenig, CHARLEEN) Discharge planning issues (Acute) SBO (small bowel obstruction) (Acute) Involuntary movements (Acute) Chronic heart failure with preserved ejection fraction (HFpEF) (Acute) Atrial fibrillation (Chronic) Tubular adenoma of colon (Chronic 03/04/14) 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 plaque per [place] onychomycosis Cognitive change Complete edentulism, unspecified Congestive heart failure Conjunctivitis COPD (chronic obstructive pulmonary disease) with emphysema CVD (cardiovascular disease) Dependence on supplemental oxygen Depression a. with psychotic features Diarrhea (11/19/14) 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 02/18-09/19, normal metanephrines, normal dexamethasone suppression. 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 hypokalemia b. 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 GRAJEDA Hemicolectomy [facility]; 09/15/14; RIGHT History of bilateral ligation of fallopian tubes History of partial colectomy 09/15/14 right hemicolectomy w/ileocolic anastomosis History of partial surgical removal of colon (09/15/14) Ligation of fallopian tube S/P AAA repair S/P tubal ligation Status post appendectomy Family History Mother Essential hypertension Alzheimer's disease Father Heart disease Breast cancer Prostate cancer Sister Myocardial infarction Sister Myocardial infarction Brother Cancer Sister No problems noted. Sister No problems noted. Brother Substance abuse Brother Substance abuse Brother Substance abuse Cancer Son No problems noted. Daughter No problems noted. Social History Smoking/Tobacco Use Status: Former Tobacco Use Smoking risk assessment performed?: Yes Alcohol Intake: never Drug use: Never Substance use type: does not use Household members: other Details: 4 Pets and animals: Yes Pets and animals: cat(s) and dog(s) Current gender identity: decline to answer What is your relationship status?: refused to answer How often do you talk on the phone with friends or family?: decline to answer How often do you get together with friends or relatives?: decline to answer How often do you attend buddhist or gnosticism services?: decline to answer Do you belong to any clubs or organized social groups?: decline to answer Panel score (0-1 are the most socially isolated patients): 0 What type of physical activity do you participate in: none Lelo/Restorationism: No preference Special lelo needs: No Do you feel safe at home: Yes Do you feel safe in your relationship?: Yes Time Spent with Patient Time Spent with Patient: <45 minutes Time was spent: preparing to see the patient(eg.review tests), obtaining and/or reviewing separately otained hiistory, indepentently interpreting results, counseling the patient and care coordination
[2022-06-09] MEDS: Bacitracin 1 PACKET TP (12:30)
--- NOTE | 2022-06-09 15:08 | CMDISCH_ITS ---
- If Service Date Differs Date of service: 06/09/22 Time of Service: 15:08 LACE Index Scoring Tool - Questions: Length of Stay (in days): 4 - 6 Acuity (Admit via E.D.?): Yes Comorbidities: Congestive Heart Failure, Chronic Pulmonary Disease E.D. Visits: 2 - Answers: Total Score: 14 Risk of Readmission: High Risk Care Management Discharge Reason for Hospitalization: Small Bowel Obstruction Discharge Plan: Deb will return home today with a resumption of RN, PT. called [facility] to inform of her discharge today, and resumption of care. Her daughter, Mimi will drive her home via private vehicle. She will follow up with her PCP and discharge plan of care. Patient/Family Education Needs: Review discharge instructions and limitations, discussion of self care needs including ask me three and goals of care. Services Needed at Discharge: Home Health Care Services (resumption JESSICA RN, PT)
== END 2022-06-09 15:25 | disposition home health service (06) | DRG 389 ==
LOC: ER 15:23 → MS 18:03
PROVIDERS: Emergency Medicine; Nurse Practitioner Acute Care; Nurse Practitioner Family; Surgery; Admitting Provider Family Medicine; Emergency Provider Emergency Medicine; PCP Family Medicine; Visit Provider Family Medicine
DX: K56.609 Unspecified intestinal obstruction, unspecified as to partial versus complete obstruction (principal); I47.1 Supraventricular tachycardia; I50.32 Chronic diastolic (congestive) heart failure; K51.20 Ulcerative (chronic) proctitis without complications; N30.00 Acute cystitis without hematuria; I48.91 Unspecified atrial fibrillation; I25.10 Atherosclerotic heart disease of native coronary artery without angina pectoris; F41.9 Anxiety disorder, unspecified; I11.0 Hypertensive heart disease with heart failure; J44.9 Chronic obstructive pulmonary disease, unspecified; K75.81 Nonalcoholic steatohepatitis (NASH); Z90.49 Acquired absence of other specified parts of digestive tract; Z79.01 Long term (current) use of anticoagulants; I70.90 Unspecified atherosclerosis; K44.9 Diaphragmatic hernia without obstruction or gangrene; E78.5 Hyperlipidemia, unspecified; R63.4 Abnormal weight loss; R35.0 Frequency of micturition; Z87.891 Personal history of nicotine dependence; F32.9 Major depressive disorder, single episode, unspecified
CPT/HCPCS: 36415; 36569; 71045; 80048; 80053; 83690; 85027; 87637; 94640; 96361; 96374; 99222; 99231; 99285; 74018; 74177; 80162; 81003; 81015; 83735; 84100; 85025; 86140; 94664; 94760; 99232; 99233; 99238; J0131; J0696; J2060; J2405; J3490

== ENCOUNTER 2022-09-05 21:38 | Inpatient (IN) | payer MEDICARE, SELFPAY ==
[2022-09-05] VITALS (24 sets, daily range): BP systolic 81–118; BP diastolic 34–94; PULSE 91–133; RESP 23–46; TEMP 38.6; O2SAT 74–95
--- NOTE | 2022-09-05 21:30 | RT.EKG_ITS ---
APPROVED REPORT Exam: Resting ECG Reason for Exam: vomiting Patient Location: E HR:127 bpm ECG Measurements Heart Rate 127 AXIS IN [id number] P [id number] QRSd 99 QRS 54 QT 287 T -88 QTc 418 Conclusion Atrial fibrillation...? atrial activity Repolarization abnormality, prob rate related...ST dep, T neg, tachycardia
--- NOTE | 2022-09-05 21:48 | ED.GENADUL_ITS ---
Discharge Plan Disposition Patient Disposition: Admit to [facility] Discharge Details Clinical Impression: Fever, Gastroenteritis, Pneumonia, Acute hypoxemic respiratory failure Primary Care Provider: Carolin Salinas ED Provider: Johnson Patel Home Meds and New Rx's Prescriptions: No Action potassium chloride [Klor-Con M20] 20 mEq tablet,ER particles/crystals 20 meq PO BID Qty: 180 5RF magnesium oxide 400 mg (241.3 mg magnesium) tablet 400 mg PO DAILY Qty: 90 5RF lorazepam 0.5 mg tablet 0.5 mg PO TID PRN Qty: 270 4RF risperidone [Risperdal] 2 mg tablet 2 mg PO HS Qty: 90 5RF sertraline 50 mg tablet 50 mg PO DAILY Qty: 90 5RF trazodone 100 mg tablet 100 mg PO HS Qty: 90 5RF risperidone [Risperdal] 0.5 mg tablet 0.5 mg PO BID protein [Ensure High Protein] Powder 1 pwd PO DAILY Qty: 480 4RF diphth,pertus(acell),tetanus 2.5-8-5 Lf-mcg-Lf/0.5mL syringe 0.5 ml IM ONCE Qty: 0.5 0RF Rx Instructions: as a single dose Shingrix (PF) 50 mcg/0.5 mL suspension for reconstitution 0.5 ml IM ONCE Qty: 1 1RF Rx Instructions: as a single dose. Repeat in 2 months Lactobacillus acidophilus 1 EACH tablet 1 ea PO BID Eliquis 5 mg tablet 5 mg PO BID Qty: 180 5RF digoxin 125 mcg (0.125 mg) tablet 125 mcg PO DAILY Qty: 90 5RF Ensure High Protein Liquid 237 ml PO BID Qty: 45020 12RF Rx Instructions: dispense 60 cans acetaminophen [Tylenol] 325 MG tablet 650 mg Q8H PRN PRN fluticasone propion-salmeterol [Advair Diskus] 500-50 mcg/dose blister with device 1 inh INHALATION BID Patient Comments: INHALE 1 PUFF BY MOUTH TWO TIMES A DAY Medical Decision Making <Jyotsna Rodriguez NP - Last Filed: 09/05/22 23:40> 82-year-old female with a past medical history of CHF, atrial fibrillation, small bowel obstruction, coronary artery disease, COPD, hypertension, Portillo presents to the ER with 24 hours of weakness and diarrhea. Daughter reports that vomiting began today. She has had approximately 5 episodes of diarrhea daily. She was admitted and discharged on May of this year for small bowel obstruction. Upon initial presentation patient is to transfer into wheelchair with max assist, she is covered in emesis. She is tachycardic at a rate of 120. Cardiac work-up ordered including lactate. Patient febrile with a rectal temp of 101. CT chest abdomen pelvis ordered. O2 sat 74% RA, placed on 3L n/c, O2 sat 93%. Patient had episode of emesis in room. Daughter reports patient did take her medications this am. Differential Diagnosis gastroenteritis, pneumonia,, sepsis, aspiration pneumonia, IA, UTI Lactate 2.2, CBC shows white blood cell count of 10.83, sodium 128, magnesium 1.6, urinalysis within normal limits Ceftriaxone 1 gm IVPB ordered. Care is to be handed off to ER [facility] pending CT results and most [facility] admission. This text was generated using [employer] dictation system, please disregard any oddities of phrase or misspellings. Medical Records Medical records reviewed: Yes I reviewed the patient's medical records. Lab Data Lab results reviewed: Yes I reviewed the patient's lab results. Labs: 09/05/22 22:10 Blood Blood Culture - Pending 09/05/22 22:10 Blood Blood Culture - Pending Laboratory Tests Range/Units 09/05/22 09/05/22 09/05/22 22:10 22:10 22:10 WBC (4.4-10.8) 10^3/uL 10.83 H RBC (3.93-5.22) 10^6/uL 4.96 Hgb (11.2-15.7) g/dL 14.6 Hct (36.0-46.0) % 43.9 MCV (80-95) fL 89 MCH (27.0-33.0) pg 29.4 MCHC (32.0-36.0) % 33.3 RDW (11.7-14.6) % 14.2 Plt Count (130-400) 10^3/uL MPV (8.0-11.0) fL Immature Gran % 0.6 Neutrophils % 74.8 Lymphocytes % 13.3 Monocytes % 10.9 Eosinophils % 0.1 Basophils % 0.3 Nucleated RBC % (0.0-0.3) % 0.0 Absolute Neutrophils (1.2-6.7) 10^3/uL 8.10 H Absolute Lymphocytes (1.2-3.4) 10^3/uL 1.44 Absolute Monocytes (0.1-0.8) 10^3/uL 1.18 H Absolute Eosinophils (0.0-0.7) 10^3/uL 0.01 Absolute Basophils (0.0-0.2) 10^3/uL 0.03 VBG Lactate (0.6-1.4) mmol/L 2.2 H* Sodium (136-145) mmol/L 128 L Potassium (3.5-5.1) mmol/L 4.2 Chloride (98-107) mmol/L 92 L Carbon Dioxide (21.0-32.0) mmol/L 28.5 Anion Gap (3-11) mmol/L 7.5 BUN (7-18) mg/dL 17 Creatinine (0.55-1.02) mg/dL 1.0 Est GFR (CKD-EPI 2020) (mL/min/1.73m2) 55.90 Glucose (74-106) mg/dL 128 H Calcium (8.5-10.1) mg/dL 8.5 Magnesium (1.8-2.4) mg/dL 1.6 L Total Bilirubin (0.2-1.0) mg/dL 0.7 AST (15-37) U/L 28 ALT (14-59) U/L 23 Alkaline Phosphatase (46-116) U/L 86 Troponin I (<or=60) ng/L < 50 Total Protein (6.4-8.2) g/dL 7.0 Albumin (3.4-5.0) g/dL 3.2 L Lipase (16-77) U/L 46 Urine Color (Yellow) Urine Clarity (Clear) Urine pH (5-8) Ur Specific Chandler (1.005-1.025) Urine Protein (Negative) mg/dL Urine Ketones (Negative) mg/dL Urine Blood (Negative) Urine Nitrite (Negative) Urine Bilirubin (Negative) Urine Urobilinogen (Up to 0.2) mg/dL Ur Leukocyte Esterase (Negative) Urine Glucose (Negative) mg/dL Range/Units 09/05/22 22:50 WBC (4.4-10.8) 10^3/uL RBC (3.93-5.22) 10^6/uL Hgb (11.2-15.7) g/dL Hct (36.0-46.0) % MCV (80-95) fL MCH (27.0-33.0) pg MCHC (32.0-36.0) % RDW (11.7-14.6) % Plt Count (130-400) 10^3/uL MPV (8.0-11.0) fL Immature Gran % Neutrophils % Lymphocytes % Monocytes % Eosinophils % Basophils % Nucleated RBC % (0.0-0.3) % Absolute Neutrophils (1.2-6.7) 10^3/uL Absolute Lymphocytes (1.2-3.4) 10^3/uL Absolute Monocytes (0.1-0.8) 10^3/uL Absolute Eosinophils (0.0-0.7) 10^3/uL Absolute Basophils (0.0-0.2) 10^3/uL VBG Lactate (0.6-1.4) mmol/L Sodium (136-145) mmol/L Potassium (3.5-5.1) mmol/L Chloride (98-107) mmol/L Carbon Dioxide (21.0-32.0) mmol/L Anion Gap (3-11) mmol/L BUN (7-18) mg/dL Creatinine (0.55-1.02) mg/dL Est GFR (CKD-EPI 2020) (mL/min/1.73m2) Glucose (74-106) mg/dL Calcium (8.5-10.1) mg/dL Magnesium (1.8-2.4) mg/dL Total Bilirubin (0.2-1.0) mg/dL AST (15-37) U/L ALT (14-59) U/L Alkaline Phosphatase (46-116) U/L Troponin I (<or=60) ng/L Total Protein (6.4-8.2) g/dL Albumin (3.4-5.0) g/dL Lipase (16-77) U/L Urine Color (Yellow) Yellow Urine Clarity (Clear) Clear Urine pH (5-8) 7.0 Ur Specific Chandler (1.005-1.025) 1.020 Urine Protein (Negative) mg/dL Negative Urine Ketones (Negative) mg/dL Negative Urine Blood (Negative) Negative Urine Nitrite (Negative) Negative Urine Bilirubin (Negative) Negative Urine Urobilinogen (Up to 0.2) mg/dL 0.2 Ur Leukocyte Esterase (Negative) Negative Urine Glucose (Negative) mg/dL Negative <Johnson Patel MD - Last Filed: 09/06/22 00:28> Imaging Data Radiologic Study: Attestation: I personally reviewed and interpreted this imaging study as follows: Imaging: CT Scan (chest abdomen and pelvis) Radiologist's impression: ct chest IMPRESSION: 1. ? Irregular shaped density in the right lower lobe is larger from the prior study. There are air bronchograms extending through this and this is associated with linear scarring. This may be a region of chronic atelectasis. Superimposed infection can considered in the proper clinical setting. Follow-up CT can be obtained as clinically indicated. 2. ? Stable nodular density in the left upper lobe. ct abd and pelvis IMPRESSION: 1. ? Small amount of free fluid in the pelvis. 2. ? Nondilated fluid-filled loops of small bowel is nonspecific but may be due to enteritis. 3. ? Stable findings as described above. ECG Data Attestation: I personally reviewed and interpreted this ECG (s) as follows: Prior ECG tracings: available for review Interpretation: Atrial fibrillation with tachycardia up to 120. Normal axis. Normal NM intervals. No ST or T wave changes. Unremarkable and compared to the prior EKG. HPI <Jyotsna Rodriguez NP - Last Filed: 09/05/22 23:40> General Mode of arrival: wheelchair . Date/Time Provider Initiated Documentation: 09/05/22 21:40 . Limitations to Documentation: altered mental status . Information obtained by: patient, family (Daughter), RN notes reviewed and old records reviewed . HPI Narrative: 82-year-old female with a past medical history of CHF, atrial fibrillation, small bowel obstruction, coronary artery disease, COPD, hypertension, Portillo presents to the ER with 24 hours of weakness and diarrhea. Daughter reports that vomiting began today. She has had approximately 5 episodes of diarrhea daily. She was admitted and discharged on May of this year for small bowel obstruction. Upon initial presentation patient is to transfer into wheelchair with max assist, she is covered in emesis. She is tachycardic at a rate of 120. Related Data Home Medications Medication Instructions Recorded Confirmed acetaminophen 325 mg tablet 650 mg Q8H PRN PRN 08/10/14 09/05/22 (Tylenol) Lactobacillus acidophilus 1 1 ea PO BID 03/11/15 09/05/22 billion cell tablet potassium chloride 20 mEq 20 meq PO BID #180 tabs 12/10/21 09/05/22 tablet,extended release(part/cryst) (Klor-Con M) apixaban 5 mg tablet (Eliquis) 5 mg PO BID #180 tabs 01/11/22 09/05/22 digoxin 125 mcg (0.125 mg) tablet 125 mcg PO DAILY #90 tabs 04/19/22 09/05/22 fluticasone 500 mcg-salmeterol 50 1 inh inhalation BID 06/04/22 09/05/22 mcg/dose blistr powdr for inhalation (Advair Diskus) lorazepam 0.5 mg tablet 0.5 mg PO TID PRN anxiety #270 tabs 06/29/22 09/05/22 magnesium oxide 400 mg (241.3 mg 400 mg PO DAILY #90 tabs 06/29/22 09/05/22 magnesium) tablet risperidone 2 mg tablet (Risperdal) 2 mg PO HS #90 tabs 06/29/22 09/05/22 sertraline 50 mg tablet 50 mg PO DAILY #90 tabs 06/29/22 09/05/22 trazodone 100 mg tablet 100 mg PO HS #90 tabs 06/29/22 09/05/22 Ensure High Protein (food 237 ml PO BID low albumin; 06/30/22 09/05/22 supplemt, lactose-reduced) malnutrition #14,220 mL diphth,pertus(acell),tetanus 2.5 0.5 ml IM ONCE #0.5 mL 08/12/22 09/05/22 Lf unit-8 mcg-5 Lf/0.5mL IM syringe protein (Ensure High Protein oral 1 pwd PO DAILY low albumin, 08/12/22 09/05/22 powder) hypotension, calorie malnutrition #480 grams risperidone 0.5 mg tablet 0.5 mg PO BID 08/12/22 09/05/22 (Risperdal) varicella-zoster glycoE [id number] 0.5 ml IM ONCE #1 ea 08/12/22 08/12/22 adj(PF) 50 mcg/0.5 mL IM susp, kit (Shingrix (PF)) Previous Rx's Medication Instructions Recorded potassium chloride 20 mEq 20 meq PO BID #180 tabs 12/10/21 tablet,extended release(part/cryst) (Klor-Con M) apixaban 5 mg tablet (Eliquis) 5 mg PO BID #180 tabs 01/11/22 digoxin 125 mcg (0.125 mg) tablet 125 mcg PO DAILY #90 tabs 04/19/22 lorazepam 0.5 mg tablet 0.5 mg PO TID PRN anxiety #270 tabs 06/29/22 magnesium oxide 400 mg (241.3 mg 400 mg PO DAILY #90 tabs 06/29/22 magnesium) tablet risperidone 2 mg tablet (Risperdal) 2 mg PO HS #90 tabs 06/29/22 sertraline 50 mg tablet 50 mg PO DAILY #90 tabs 06/29/22 trazodone 100 mg tablet 100 mg PO HS #90 tabs 06/29/22 Ensure High Protein (food 237 ml PO BID low albumin; 06/30/22 supplemt, lactose-reduced) malnutrition #14,220 mL diphth,pertus(acell),tetanus 2.5 0.5 ml IM ONCE #0.5 mL 08/12/22 Lf unit-8 mcg-5 Lf/0.5mL IM syringe protein (Ensure High Protein oral 1 pwd PO DAILY low albumin, 08/12/22 powder) hypotension, calorie malnutrition #480 grams varicella-zoster glycoE vacc-[id number] 0.5 ml IM ONCE #1 ea 08/12/22 adj(PF) 50 mcg/0.5 mL IM susp, kit (Shingrix (PF)) Allergies Allergy/AdvReac Type Severity Reaction Status Date / Time pneumococcal 7-valent Allergy Mild Local Verified 09/05/22 21:49 conjugate to reaction [From Prevnar] amoxicillin trihydrate AdvReac Intermediate VOMITING Verified 09/05/22 21:49 [From Augmentin] potassium clavulanate AdvReac Intermediate VOMITING Verified 09/05/22 21:49 [From Augmentin] General DEONNA: 3 Review of Systems <Jyotsna Rodriguez NP - Last Filed: 09/05/22 23:40> All systems reviewed & are unremarkable except as noted in HPI and below Constitutional Constitutional: Reports fever(s) and Reports weakness Gastrointestinal Gastrointestinal: Reports diarrhea and Reports vomiting Neurologic Neurologic: Reports weakness PFSH <Jyotsna Rodriguez NP - Last Filed: 09/05/22 23:40> All Active Problems (Updated 09/06/22 @ 00:13 by Johnson Patel MD) Fever (Acute) Gastroenteritis (Acute) Pneumonia (Acute) Acute hypoxemic respiratory failure (Acute) Discharge planning issues (Acute) SBO (small bowel obstruction) (Acute) Involuntary movements (Acute) Chronic heart failure with preserved ejection fraction (HFpEF) (Acute) Atrial fibrillation (Chronic) Tubular adenoma of colon (Chronic 03/04/14) 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 plaque per [place] onychomycosis Cognitive change Complete edentulism, unspecified Congestive heart failure Conjunctivitis COPD (chronic obstructive pulmonary disease) with emphysema CVD (cardiovascular disease) Dependence on supplemental oxygen Depression a. with psychotic features Diarrhea (11/19/14) 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 02/18-09/19, normal metanephrines, normal dexamethasone suppression. 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 hypokalemia b. hypomagnesemia Elevated LDH Elevated serum lactate dehydrogenase (LDH) Encounter for monitoring diuretic therapy Essential (primary) hypertension 06/01/13 Hiatus hernia syndrome 12/05/14 [facility] [place]; EGD History of tobacco use 100pack/years History of tobacco use Hyperlipidemia Increased body mass index Ischemic bowel disease 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) Palliative care patient Palpitations 08/26/14; FREQ PVC BY HOLTER Palpitations Pulmonary hypertension Right hip pain Right pontine CVA [facility]-01/30/16; 8X5 mm RUQ abdominal pain Seborrheic keratosis (01/01/16) punch/shave biopsy skin of left arm Seborrheic keratosis (01/01/16) Shortness of breath (10/14/16) SVT (supraventricular tachycardia) (09/15/14) Tachycardia Urinary frequency (08/21/15) Vascular insufficiency of intestine (06/12/15) Weight loss (04/02/14) Weight loss, abnormal (~06/11/21) 30# in last yr Surgical History Appendectomy Biopsy, Soft Tissue (01/01/16) Punch/shave biospy of skin of left arm, seborrheic keratosis Colectomy (09/18/14) DR. GRAJEDA Hemicolectomy [facility]; 09/15/14; RIGHT History of bilateral ligation of fallopian tubes History of partial colectomy 09/15/14 right hemicolectomy w/ileocolic anastomosis History of partial surgical removal of colon (09/15/14) Ligation of fallopian tube S/P AAA repair S/P tubal ligation Status post appendectomy Family History Mother Essential hypertension Alzheimer's disease Father Heart disease Breast cancer Prostate cancer Sister Myocardial infarction Sister Myocardial infarction Brother Cancer Sister No problems noted. Sister No problems noted. Brother Substance abuse Brother Substance abuse Brother Substance abuse Cancer Son No problems noted. Daughter No problems noted. Social History Smoking/Tobacco Use Status: Former Tobacco Use Smoking risk assessment performed?: Yes Alcohol Intake: never Drug use: Never Substance use type: does not use Household members: other Details: 4 Pets and animals: Yes Pets and animals: cat(s) and dog(s) Current gender identity: decline to answer What is your relationship status?: refused to answer How often do you talk on the phone with friends or family?: decline to answer How often do you get together with friends or relatives?: decline to answer How often do you attend religious or latter day services?: decline to answer Do you belong to any clubs or organized social groups?: decline to answer Panel score (0-1 are the most socially isolated patients): 0 What type of physical activity do you participate in: none Lelo/Advent: No preference Special lelo needs: No Do you feel safe at home: Yes Do you feel safe in your relationship?: Yes Exam <Jyotsna Rodriguez NP - Last Filed: 09/05/22 23:40> Narrative Exam Narrative: Constitutional: Awake and confused, non verbal, follows commands. Appears stated age. Normal body habitus. Head: Normocephalic, no trauma. Eyes: Pupils PERRL, Red reflex noted, EOM's intact. Eyelids symmetrical without lesions, discharge, or swelling. ENT: Bilateral TM's WNL, External ear normal to inspection, no mastoid TTP, swelling, or erythema, Nasal turbinates WNL, no nasal discharge. Normal dentition, Posterior pharynx WNL, no exudate. Dry mucous membranes Chest: RRR, Normal S1, S2, distal pulses intact. Resp: Lungs Corse and diminished to auscultation,i. Abdomen: Soft, non-distended, Normoactive bowel sounds all 4 quads. Musculoskeletal: Unable to assess gait, generalized weakness,no focal neuro deficits Skin: No suspicious rashes or lesions. Capillary refill less than 2 sec. Neurologic: Cranial nerves II-XII intact. . Motor: No deficits noted. Sensory: Intact bilaterally all 4 extremities. Reflexes: DTR's intact bilaterally.. Hematologic/Lymphatic: No ecchymosis, no lymphadenopathy. <Johnson Patel MD - Last Filed: 09/06/22 00:28> IJohnson, took signout on this patient. In summary 82-year-old female who presented with 2 days of generalized weakness as well as nausea vomiting and diarrhea. She arrived with a fever and some tachycardia. Labs mostly unremarkable other than mild leukocytosis and lactate to 2.2. Signed out to me pending CT of the chest abdomen and pelvis. CT of the chest is showing some signs of pneumonia and certainly with the vomiting could represent aspiration pneumonia and given broad-spectrum antibiotics to treat this already. CT of the abdomen and showing suspected enteritis which fits with the clinical picture. Suspect she had a gastroenteritis that led to aspiration pneumonia. She has new oxygen requirement requiring 3 L nasal cannula. She has some mild tachycardia and we will give some IV fluids for possible sepsis but will not give 30 cc/kg IV fluids given the patient's history of heart failure and the hypoxia she is already experiencing here. Family would like her to remain DNR and DNI. I asked them if they would like to pursue the treatment as above and they said they would and they would want her to be hospitalized. Certainly multiple indications for hospitalization at this point. Will speak to the hospitalist for admission for suspected pneumonia. Sign Out <Jyotsna Rodriguez NP - Last Filed: 09/05/22 23:40> Sign Out Data: Sign Out Comment: Pending CT result and most likely admission for possible aspiration pneumonia. Diarrhea and generalized weakness began yesterday. Vomiting began today. Febrile upon arrival 101, Lactate 2.2, Na 128. DNR/DNI, Hypoxic 75% RA on 3L O2 [place]. Last updated by Jyotsna Rodriguez NP at 09/05/22 23:39
--- NOTE | 2022-09-05 22:00 | DI.CT_ITS ---
Exam(s) CT CHEST/ABD/PEL W EXAM: CT CHEST/ABD/PEL W CLINICAL HISTORY: Weakness, Vomiting, Fever, Hx of SBO TECHNIQUE: Imaging Protocol: Axial computed tomography images with coronal and sagittal reformatted images were created and reviewed CONTRAST MATERIAL: Intravenous: Omnipaque 350 contrast volume:100 mL Oral: No COMPARISON: CT UPPER ABD WITH CONTRAST (P) from 10/09/[address] CHEST/ABD/PEL W from 05/18/[address] ABDOMEN PELVIS W from 06/04/2022 FINDINGS: The examination is limited due to patient motion artifact. CHEST: Tracheobronchial tree: Patent where visualized. Pulmonary parenchyma: There is a stable peripheral left upper lobe opacity measuring 1.5 cm. There h as been slight interval increase in size of the density in the medial aspect of the right lower lobe now measuring 2.0 x 2.1 cm. No architectural distortion. Visualized thyroid gland: Unremarkable. Mediastinum and Jennifer: No dominant adenopathy or fluid collection. There is fluid seen in the esophagu s. Pleura: No effusion or pneumothorax. Heart: Cardiomegaly. Moderate coronary artery calcification. There is calcification of the mitral a nnulus. No pericardial effusion. Pulmonary arteries: The pulmonary arteries are insufficiently opacified for evaluation of pulmonary e mboli. There is also limitation due to the patient motion artifact. No large central pulmonary embo adwoa is present. Aorta: Thoracic aorta non-dilated. Atherosclerosis. Lymph nodes: Within normal limits. Soft tissues: Unremarkable. Bones:Within normal limits for the patient's age. ABDOMEN: Liver: Normal density. No measurable mass. Portal, Superior Mesenteric, and Splenic Veins: Unremarkable. Gallbladder and Biliary Tract: Cholelithiasis. No significant biliary ductal dilatation. Pancreas: Normal density, no abnormal calcifications or inflammatory process. Spleen: Normal. Adrenals: There is stable bilateral adrenal masses. These likely reflect adenomas. No follow-up is recommended. Kidneys: Normal size, contour and axis. No radiodense stones or obstructive uropathy. No masses seen. Abdominal Aorta: There is an aortic stent in place. There is a [place] infrarenal abdominal aortic an eurysm. No evidence of leakage. The right common iliac artery appears occluded. There is reconstit ution of both the right internal and external iliac arteries. Atherosclerosis. Bowel: There is no evidence of bowel obstruction or bowel wall thickening. There are fluid-filled lo ops of small and large bowel which may reflect an enterocolitis or other diarrheal illness. No evide nce of appendicitis. Peritoneal Cavity: There is a small amount of pelvic ascites. No free air. Lymph Nodes: Within normal limits. Bones: Within normal limits for the patient's age. Soft Tissues: Unremarkable. PELVIS: Bladder: The bladder is decompressed. There is a Quijano catheter in place. Reproductive Organs: There is a soft tissue mass arising from the posterior aspect of the uterus like ly reflecting a fibroid. Lymph Nodes: Within normal limits. Bones: Within normal limits. IMPRESSION: 1. The right lower lobe density has increased in size compared to the prior examination. This may re flect chronic atelectasis, however, mass or infection cannot be excluded. 2. Stable left upper lobe nodule. 3. Nondilated fluid-filled loops of small and large bowel which may represent enterocolitis/diarrheal illness. 4. Small amount of free fluid in the pelvis. 5. Stable findings in the abdomen and pelvis as described above. RADIATION DOSE DELIVERED: 1,131.64mGy.cm Total DLP DATA REPOSITORY: All CT scans at this facility are submitted to the National Radiology Data Registry (NRDR) Dose Index Registry (DIR) with the [employer] (ACR). RADIATION OPTIMIZATION: All CT scans at this facility use at least one of these dose optimization te chniques: automated exposure control; mA and/or kV adjustment per patient size (includes targeted exa ms where dose is matched to clinical indication); or iterative reconstruction.
[2022-09-05] MEDS: Normal Saline 1,000 ML 500 ML IV (22:09)
[2022-09-05] MEDS: Ondansetron 4 MG/2 ML VIAL IVP (22:09)
[2022-09-05] MEDS: ACETAMINOPHEN 1,000 MG/100 ML BTL 400 MG IVPB (22:13)
[2022-09-05 22:23] LABS: Abs Immature Grans 0.07 10^3/uL (0.0-0.06); Absolute Basophil Count 0.03 10^3/uL (0.0-0.2); Absolute Eosinophil Count 0.01 10^3/uL (0.0-0.7); Absolute Lymphocyte Count 1.44 10^3/uL (1.2-3.4); Absolute Monocyte Count 1.18 10^3/uL (0.1-0.8); Basophils % 0.3; Eosinophils % 0.1; HCT 43.9 % (36.0-46.0); HGB 14.6 g/dL (11.2-15.7); Immature Grans % 0.6; Lymphocytes % 13.3; MCH 29.4 pg (27.0-33.0); MCHC 33.3 % (32.0-36.0); MCV 89 fL (80-95); Monocytes % 10.9; Neutrophils % 74.8; RBC 4.96 10^6/uL (3.93-5.22); RDW 14.2 % (11.7-14.6); RDW-SD 45.6 fL; WBC 10.83 10^3/uL (4.4-10.8)
[2022-09-05] MEDS: Omnipaque 350 MG/ML 100 ML BTL IJ (22:24)
[2022-09-05 22:25] LABS: Lactate 2.2 mmol/L (0.6-1.4)
[2022-09-05] MEDS: Normal Saline - Diluent 50 ML VIAL IJ (22:25)
[2022-09-05] MEDS: Normal Saline Flush 10 ML SYR IVP (22:25)
[2022-09-05 22:43] LABS: ALT 23 U/L (14-59); AST 28 U/L (15-37); Albumin 3.2 g/dL (3.4-5.0); Alkaline Phosphatase 86 U/L (46-116); Anion Gap 7.5 mmol/L (3-11); BUN 17 mg/dL (7-18); Bilirubin, Total 0.7 mg/dL (0.2-1.0); CO2 28.5 mmol/L (21.0-32.0); Calcium 8.5 mg/dL (8.5-10.1); Chloride 92 mmol/L (98-107); Glucose 128 mg/dL (74-106); Lipase 46 U/L (16-77); Magnesium 1.6 mg/dL (1.8-2.4); Potassium 4.2 mmol/L (3.5-5.1); Sodium 128 mmol/L (136-145); Troponin I < 50 ng/L (<or=60)
[2022-09-05 22:59] LABS: Bilirubin Negative (Negative); Blood Negative (Negative); Clarity Clear (Clear); Glucose Negative (Negative); Ketones Negative (Negative); Leukocyte Esterase Negative (Negative); Nitrite Negative (Negative); Urobilinogen 0.2 mg/dL (Up to 0.2)
--- NOTE | 2022-09-05 23:47 | DI.VRAD_ITS ---
PROCEDURE INFORMATION: Exam: CT Chest With Contrast; Diagnostic Exam date and time: 09/05/2022 10:39 PM Age: 82 years old Clinical indication: Fever and vomiting; Prior surgery; Surgery date: 6+ months; Surgery type: Hemicolectomy, appendectomy; Patient HX: Hxof sbo, weakness, vomiting, fever TECHNIQUE: Imaging protocol: Diagnostic computed tomography of the chest with contrast. 3D rendering (Not supervised by radiologist): MIP and/or 3D reconstructed images were created by the technologist. Radiation optimization: All CT scans at this facility use at least one of these dose optimization techniques: automated exposure control; mA and/or kV adjustment per patient size (includes targeted exams where dose is matched to clinical indication); or iterative reconstruction. Contrast material: OMNIPAQUE 350; Contrast volume: 100 ml; Contrast route: INTRAVENOUS (IV); COMPARISON: CT CHEST/ABD/PEL W 05/18/2022 11:47 AM FINDINGS: Lungs: 1.5 x 1.0 nodular density in the left upper lobe on image 141 of series 8 is unchanged. Irregular shaped density posteriorly in the right lower lobe measuring 2.0 x 2.1 cm is larger from the prior study. There are bronchograms extending through this and there is linear density extending from this to the pleura. No other lung nodules or consolidation. Degenerative changes in the thoracic spine. No suspicious lytic or blastic bone lesions. Pleural spaces: No pleural effusion. No pneumothorax. Heart: Cardiomegaly. Mitral calcifications are noted. No pericardial effusion. Lymph nodes: Unremarkable. No enlarged lymph nodes. Vasculature: Severe atherosclerotic calcifications of the thoracic aorta its major branches. No aneurysmal dilatation. Bones/joints: See Lungs finding. Soft tissues: Unremarkable. IMPRESSION: 1. Irregular shaped density in the right lower lobe is larger from the prior study. There are air bronchograms extending through this and this is associated with linear scarring. This may be a region of chronic atelectasis. Superimposed infection can considered in the proper clinical setting. Follow-up CT can be obtained as clinically indicated. 2. Stable nodular density in the left upper lobe. PROCEDURE INFORMATION: Exam: CT Abdomen And Pelvis With Contrast Exam date and time: 09/05/2022 10:39 PM Age: 82 years old Clinical indication: Fever and vomiting; Prior surgery; Surgery date: 6+ months; Surgery type: Hemicolectomy, appendectomy; Patient HX: Hxof sbo, weakness, vomiting, fever TECHNIQUE: Imaging protocol: Computed tomography of the abdomen and pelvis with contrast. 3D rendering (Not supervised by radiologist): MIP and/or 3D reconstructed images were created by the technologist. Radiation optimization: All CT scans at this facility use at least one of these dose optimization techniques: automated exposure control; mA and/or kV adjustment per patient size (includes targeted exams where dose is matched to clinical indication); or iterative reconstruction. Contrast material: OMNIPAQUE 350; Contrast volume: 100 ml; Contrast route: INTRAVENOUS (IV); COMPARISON: CT ABDOMEN PELVIS W 06/04/2022 1:27 PM FINDINGS: Lungs: The visualized lung bases are clear Liver: Normal. No mass. Gallbladder and bile ducts: Multiple calcified gallstones are again noted. No gallbladder wall thickening. Pancreas: Normal. No ductal dilation. Spleen: Normal. No splenomegaly. Adrenal glands: Stable bilateral adrenal adenomas. Kidneys and ureters: Normal. No hydronephrosis. Stomach and bowel: There are multiple fluid-filled loops of small bowel in the pelvis without dilatation. Distal colon is normal in caliber. Appendix: No evidence of appendicitis. Intraperitoneal space: Small amount of free fluid within the pelvis. No evidence of pneumoperitoneum. Vasculature: Extensive atherosclerotic calcifications. Aortoiliac stent is noted. No change in the infrarenal abdominal aortic aneurysm. No evidence of contrast extravasation. Celiac artery stent is unchanged. Lymph nodes: Unremarkable. No enlarged lymph nodes. Urinary bladder: Quijano catheter decompresses the bladder. Reproductive: Unremarkable as visualized. Bones/joints: Degenerative changes of the lumbar spine. No suspicious lytic or blastic bone lesions. Soft tissues: Unremarkable. IMPRESSION: 1. Small amount of free fluid in the pelvis. 2. Nondilated fluid-filled loops of small bowel is nonspecific but may be due to enteritis. 3. Stable findings as described above. Dictated and Authenticated by: Ta Herrera MD. Ordering:LISA Goyal MD
[2022-09-05] MEDS: cefTRIAXone 1 GM/50 ML BAG IVPB (23:49)
[2022-09-06] VITALS (37 sets, daily range): BP systolic 96–118; BP diastolic 44–74; PULSE 90–144; RESP 20–40; TEMP 36.2–37.2; O2SAT 89–98
[2022-09-06] MEDS: Lactated Ringers 1,000 ML 1000 ML IV (00:05)
--- NOTE | 2022-09-06 00:56 | W.PM.HP.N ---
Date of service: 09/06/22 Time of Service: 00:56 Assessment and Plan Assessment and plan (1) Fever: Status: Acute Assessment and plan: Fever. Presenting symptoms are non-specific but might point towards gastroenteritis. However with the new oxygen requirement and CT findings I would favor pneumonia. The presence of GI symptomatology along with the hyponatremia suggests possible Legionella and I have requested add on Zithromycin coverage. Will also check urinary antigen. In the meantime ER has ordered stool studies for bacterial pathogens. There is a history of prior SBO but history and findings would not point in this direction. Otherwise: 1. AF: continued rate control with Digoxin; and treat fever with APAP 2. Hyponatremia: NS and trend 3. Code status: remains DNR per prior notes History of Present Illness History of Present Illness Chief Complaint: vomiting, diarrhea Narrative: 82 female with h/o muliple medical problems, including prior SBO and COPD -- here with several days of nausea.vomiting and diarrhea. No reported abdominal pain or cough. In ER findings of note for temp 38.6, pulse 122, and initial O2 sats in 70s on RA; white count 10; Na 128, lactate 2.2; and CT chest and abdomen showing irregular RLL density with air bronchograms, and several fluid-filled but non-dilated loops of small bowel. Patient given 1 gr Rocephin and I was asked to evaluate for admission. Patient unable to give any history; above obtained from ER. 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 plaque per U/S Aminah onychomycosis Cognitive change Complete edentulism, unspecified Congestive heart failure Conjunctivitis COPD (chronic obstructive pulmonary disease) with emphysema CVD (cardiovascular disease) Dependence on supplemental oxygen Depression a. with psychotic features Diarrhea (11/19/14) 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 02/18-09/19, normal metanephrines, normal dexamethasone suppression. 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 hypokalemia b. hypomagnesemia Elevated LDH Elevated serum lactate dehydrogenase (LDH) Encounter for monitoring diuretic therapy Essential (primary) hypertension 06/01/13 Hiatus hernia syndrome 12/05/14 [facility] [place]; EGD History of tobacco use 100pack/years History of tobacco use Hyperlipidemia Increased body mass index Ischemic bowel disease 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) Palliative care patient Palpitations 08/26/14; FREQ PVC BY HOLTER Palpitations Pulmonary hypertension Right hip pain Right pontine CVA [facility]-01/30/16; 8X5 mm RUQ abdominal pain Seborrheic keratosis (01/01/16) punch/shave biopsy skin of left arm Seborrheic keratosis (01/01/16) Shortness of breath (10/14/16) SVT (supraventricular tachycardia) (09/15/14) Tachycardia Urinary frequency (08/21/15) Vascular insufficiency of intestine (06/12/15) Weight loss (04/02/14) Weight loss, abnormal (~06/11/21) 30# in last yr Surgical History Appendectomy Biopsy, Soft Tissue (01/01/16) Punch/shave biospy of skin of left arm, seborrheic keratosis Colectomy (09/18/14) DR. GRAJEDA Hemicolectomy [facility]; 09/15/14; RIGHT History of bilateral ligation of fallopian tubes History of partial colectomy 09/15/14 right hemicolectomy w/ileocolic anastomosis History of partial surgical removal of colon (09/15/14) Ligation of fallopian tube S/P AAA repair S/P tubal ligation Status post appendectomy Family History Mother Essential hypertension Alzheimer's disease Father Heart disease Breast cancer Prostate cancer Sister Myocardial infarction Sister Myocardial infarction Brother Cancer Sister No problems noted. Sister No problems noted. Brother Substance abuse Brother Substance abuse Brother Substance abuse Cancer Son No problems noted. Daughter No problems noted. Social History Smoking/Tobacco Use Status: Former Tobacco Use Smoking risk assessment performed?: Yes Alcohol Intake: never Drug use: Never Substance use type: does not use Household members: other Details: 4 Pets and animals: Yes Pets and animals: cat(s) and dog(s) Current gender identity: decline to answer What is your relationship status?: refused to answer How often do you talk on the phone with friends or family?: decline to answer How often do you get together with friends or relatives?: decline to answer How often do you attend religion or uatsdin services?: decline to answer Do you belong to any clubs or organized social groups?: decline to answer Panel score (0-1 are the most socially isolated patients): 0 What type of physical activity do you participate in: none Lelo/Rastafarian: No preference Special lelo needs: No Do you feel safe at home: Yes Do you feel safe in your relationship?: Yes Meds Allergies and Home Medications Allergies Allergy/AdvReac Type Severity Reaction Status Date / Time pneumococcal 7-valent Allergy Mild Local Verified 09/05/22 21:49 conjugate to reaction [From Prevnar] amoxicillin trihydrate AdvReac Intermediate VOMITING Verified 09/05/22 21:49 [From Augmentin] potassium clavulanate AdvReac Intermediate VOMITING Verified 09/05/22 21:49 [From Augmentin] Home Medications Medication Instructions Recorded Confirmed Type acetaminophen 325 mg tablet 650 mg Q8H PRN PRN 08/10/14 09/05/22 History (Tylenol) Lactobacillus acidophilus 1 1 ea PO BID 03/11/15 09/05/22 History billion cell tablet potassium chloride 20 mEq 20 meq PO BID #180 tabs 12/10/21 09/05/22 Rx tablet,extended release(part/cryst) (Klor-Con M) apixaban 5 mg tablet (Eliquis) 5 mg PO BID #180 tabs 01/11/22 09/05/22 Rx digoxin 125 mcg (0.125 mg) tablet 125 mcg PO DAILY #90 tabs 04/19/22 09/05/22 Rx fluticasone 500 mcg-salmeterol 50 1 inh inhalation BID 06/04/22 09/05/22 History mcg/dose blistr powdr for inhalation (Advair Diskus) lorazepam 0.5 mg tablet 0.5 mg PO TID PRN anxiety #270 tabs 06/29/22 09/05/22 Rx magnesium oxide 400 mg (241.3 mg 400 mg PO DAILY #90 tabs 06/29/22 09/05/22 Rx magnesium) tablet risperidone 2 mg tablet (Risperdal) 2 mg PO HS #90 tabs 06/29/22 09/05/22 Rx sertraline 50 mg tablet 50 mg PO DAILY #90 tabs 06/29/22 09/05/22 Rx trazodone 100 mg tablet 100 mg PO HS #90 tabs 06/29/22 09/05/22 Rx Ensure High Protein (food 237 ml PO BID low albumin; 06/30/22 09/05/22 Rx supplemt, lactose-reduced) malnutrition #14,220 mL diphth,pertus(acell),tetanus 2.5 0.5 ml IM ONCE #0.5 mL 08/12/22 09/05/22 Rx Lf unit-8 mcg-5 Lf/0.5mL IM syringe protein (Ensure High Protein oral 1 pwd PO DAILY low albumin, 08/12/22 09/05/22 Rx powder) hypotension, calorie malnutrition #480 grams risperidone 0.5 mg tablet 0.5 mg PO BID 08/12/22 09/05/22 History (Risperdal) varicella-zoster glycoE [id number] 0.5 ml IM ONCE #1 ea 08/12/22 08/12/22 Rx adj(PF) 50 mcg/0.5 mL IM susp, kit (Shingrix (PF)) Exam Narrative Exam Narrative: 110/44, 90, 38.6, 23, 92% 4L NC. HEENT atraumatic; neck supple; lungs rales RLL; heart irr/irr; abdomen soft and NT; extremities w/o edema; neuro opens eyes and tracks to verbal and light touch; moves all 4s Results Labs 09/05/22 22:10 09/05/22 22:10 Labs: Laboratory Results - last 24 hr 09/05/22 09/05/22 09/05/22 22:10 22:10 22:10 WBC 10.83 H RBC 4.96 Hgb 14.6 Hct 43.9 MCV 89 MCH 29.4 MCHC 33.3 RDW 14.2 Plt Count MPV Immature Gran % 0.6 Neutrophils % 74.8 Lymphocytes % 13.3 Monocytes % 10.9 Eosinophils % 0.1 Basophils % 0.3 Nucleated RBC % 0.0 Absolute Neutrophils 8.10 H Absolute Lymphocytes 1.44 Absolute Monocytes 1.18 H Absolute Eosinophils 0.01 Absolute Basophils 0.03 VBG Lactate 2.2 H* Sodium 128 L Potassium 4.2 Chloride 92 L Carbon Dioxide 28.5 Anion Gap 7.5 BUN 17 Creatinine 1.0 Est GFR (CKD-EPI 2020) 55.90 Glucose 128 H Calcium 8.5 Magnesium 1.6 L Total Bilirubin 0.7 AST 28 ALT 23 Alkaline Phosphatase 86 Troponin I < 50 Total Protein 7.0 Albumin 3.2 L Lipase 46 Urine Color Urine Clarity Urine pH Ur Specific [place] Urine Protein Urine Ketones Urine Blood Urine Nitrite Urine Bilirubin Urine Urobilinogen Ur Leukocyte Esterase Urine Glucose 09/05/22 22:50 WBC RBC Hgb Hct MCV MCH MCHC RDW Plt Count MPV Immature Gran % Neutrophils % Lymphocytes % Monocytes % Eosinophils % Basophils % Nucleated RBC % Absolute Neutrophils Absolute Lymphocytes Absolute Monocytes Absolute Eosinophils Absolute Basophils VBG Lactate Sodium Potassium Chloride Carbon Dioxide Anion Gap BUN Creatinine Est GFR (CKD-EPI 2020) Glucose Calcium Magnesium Total Bilirubin AST ALT Alkaline Phosphatase Troponin I Total Protein Albumin Lipase Urine Color Yellow Urine Clarity Clear Urine pH 7.0 Ur Specific [place] 1.020 Urine Protein Negative Urine Ketones Negative Urine Blood Negative Urine Nitrite Negative Urine Bilirubin Negative Urine Urobilinogen 0.2 Ur Leukocyte Esterase Negative Urine Glucose Negative Last Vital Signs Temp 38.6 C H 09/05/22 21:45 Pulse 90 09/06/22 00:01 Resp 23 09/06/22 00:01 BP 110/44 L 09/06/22 00:01 Pulse Ox 92 09/06/22 00:01 Time Spent Time spent with Patient: 40-54 minutes Time was spent: preparing to see the patient(eg.review tests), obtaining and/or reviewing separately otained hiistory, ordering medications,tests, procedures and indepentently interpreting results
[2022-09-06] MEDS: AZITHROMYCIN 500 MG in Normal Saline 250 ML 250 MG IVPB (01:07)
[2022-09-06 01:36] LABS: Troponin I < 50 ng/L (<or=60)
[2022-09-06 02:50] LABS: Digoxin 0.96 ng/mL (0.90-2.00)
--- NOTE | 2022-09-06 02:54 | NUR.NOTE ---
Nursing Note:pt arrived to unit in poor condition, unable to respond, some eye opening, audible wheezing and crackles,belly breathing.pts vitals stable, hypotension present and tachycardia. po2 92 percent on 3.5L. patient unable to respond to admission qustions. wctm.
[2022-09-06] MEDS: MAGNESIUM SULFATE 2 GM/50 ML BAG IVPB (03:24)
--- NOTE | 2022-09-06 05:23 | NUR.NOTE ---
Nursing Note: crackles and chf history reported to cc and fluids kept at 75/hr. wctm. vitals stable.
[2022-09-06 06:58] LABS: HCT 38.6 % (36.0-46.0); HGB 12.3 g/dL (11.2-15.7); MCH 28.9 pg (27.0-33.0); MCHC 31.9 % (32.0-36.0); MCV 91 fL (80-95); MPV 9.6 fL (8.0-11.0); Platelet Count 196 10^3/uL (130-400); RBC 4.25 10^6/uL (3.93-5.22); RDW 14.4 % (11.7-14.6); RDW-SD 47.9 fL; WBC 10.51 10^3/uL (4.4-10.8)
[2022-09-06 07:10] LABS: Anion Gap 6.7 mmol/L (3-11); BUN 16 mg/dL (7-18); CO2 30.3 mmol/L (21.0-32.0); CREATININE 0.9 mg/dL (0.55-1.02); Calcium 7.9 mg/dL (8.5-10.1); Chloride 93 mmol/L (98-107); Estimated GFR 63.43 (mL/min/1.73m2); Glucose 110 mg/dL (74-106); Potassium 4.3 mmol/L (3.5-5.1); Sodium 130 mmol/L (136-145)
[2022-09-06] MEDS: Digoxin 0.125 MG TAB PO (10:46)
[2022-09-06] MEDS: Apixaban 5 MG TAB PO ×2 (10:47→20:25)
[2022-09-06] MEDS: Normal Saline Flush 10 ML SYR IVP (10:47)
[2022-09-06] MEDS: Furosemide 40 MG/4 ML VIAL IVP (10:47)
[2022-09-06] MEDS: risperiDONE 0.5 MG TAB PO ×2 (10:47→20:25)
[2022-09-06] MEDS: Sertraline 50 MG TAB PO (10:49)
[2022-09-06] MEDS: Lactobacillus Acidophilus CAP 1 CAP PO ×2 (10:50→16:33)
[2022-09-06] MEDS: Magnesium Oxide 400 MG TAB PO (10:54)
[2022-09-06] MEDS: Potassium Chloride 20 MEQ TABCR PO ×2 (10:54→20:25)
--- NOTE | 2022-09-06 16:37 | PDOC.CMIN ---
Date of service: 09/06/22 Time of Service: 16:37 Care Management Initial Assmt Initial Assessment REASON FOR HOSPITALIZATION:: fever PREVIOUS FUNCTIONAL STATUS/SOCIAL/FAMILY SUPPORTS:: Deb is and lives in [place]. She has two supportive children, a daughter, Mimi, who resides with her, and a son, Fabricio, who lives locally. In addition, Deb has several grandchildren who also live closeby. Deb is independent with her ADL's at baseline. Mimi provides her transportation and does all the cooking. CURRENT FUNCTIONAL STATUS:: Deb was lying in bed when CM met with her. She answered questions with one word answers but her comprehension was questionable. Per nursing staff and providers, she has not been able to engage in meaningful conversation. CM contacted her daughter Mimi who stated that at baseline, Deb is alert and oriented. She is independent with her care and is even able to participate in financial matters. The confusion started about 3 days ago and increased with the GI symptoms she developed. ADVANCE DIRECTIVES:: On file. Daughter Mimi [facility] Has patient been provided with info about the portal/API?: Yes Did the patient sign up for the portal?: No CODE STATUS:: DNR/DNI INSURANCE COVERAGE / FINANCIAL ISSUES:: [facility] Medicare Replacement Plan [employer] CURRENT HOME/COMMUNITY SERVICES/EQUIPMENT:: Uses a walker, cane or wheelchair as needed. Followed by Palliative Care. PRIMARY CARE PHYSICIAN:: Carolin Salinas POTENTIAL DISCHARGE NEEDS:: Evaluations for further needs, follow up appointments. PATIENT/FAMILY EDUCATION NEEDS:: Review discharge instructions and limitations, discussion of self care needs including ask me three. TRANSPORTATION:: Via private vehicle with daughter. PLAN:: Anticipate, Deb will be discharged home when medically cleared by provider with no new services. She will follow up with community providers and discharge plan of care as prescribed. Family will drive her home when ready. CM will continue to follow and support discharge planning needs.. 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 plaque per U/S Aminah onychomycosis Cognitive change Complete edentulism, unspecified Congestive heart failure Conjunctivitis COPD (chronic obstructive pulmonary disease) with emphysema CVD (cardiovascular disease) Dependence on supplemental oxygen Depression a. with psychotic features Diarrhea (11/19/14) 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 02/18-09/19, normal metanephrines, normal dexamethasone suppression. 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 hypokalemia b. hypomagnesemia Elevated LDH Elevated serum lactate dehydrogenase (LDH) Encounter for monitoring diuretic therapy Essential (primary) hypertension 06/01/13 Hiatus hernia syndrome 12/05/14 [facility] [place]; EGD History of tobacco use 100pack/years History of tobacco use Hyperlipidemia Increased body mass index Ischemic bowel disease 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) Palliative care patient Palpitations 08/26/14; FREQ PVC BY HOLTER Palpitations Pulmonary hypertension Right hip pain Right pontine CVA [facility]-01/30/16; 8X5 mm RUQ abdominal pain Seborrheic keratosis (01/01/16) punch/shave biopsy skin of left arm Seborrheic keratosis (01/01/16) Shortness of breath (10/14/16) SVT (supraventricular tachycardia) (09/15/14) Tachycardia Urinary frequency (08/21/15) Vascular insufficiency of intestine (06/12/15) Weight loss (04/02/14) Weight loss, abnormal (~06/11/21) 30# in last yr Surgical History Appendectomy Biopsy, Soft Tissue (01/01/16) Punch/shave biospy of skin of left arm, seborrheic keratosis Colectomy (09/18/14) DR. GRAJEDA Hemicolectomy [facility]; 09/15/14; RIGHT History of bilateral ligation of fallopian tubes History of partial colectomy 09/15/14 right hemicolectomy w/ileocolic anastomosis History of partial surgical removal of colon (09/15/14) Ligation of fallopian tube S/P AAA repair S/P tubal ligation Status post appendectomy Family History Mother Essential hypertension Alzheimer's disease Father Heart disease Breast cancer Prostate cancer Sister Myocardial infarction Sister Myocardial infarction Brother Cancer Sister No problems noted. Sister No problems noted. Brother Substance abuse Brother Substance abuse Brother Substance abuse Cancer Son No problems noted. Daughter No problems noted. Social History Smoking/Tobacco Use Status: Former Tobacco Use Smoking risk assessment performed?: Yes Alcohol Intake: never Drug use: Never Substance use type: does not use Household members: other Details: 4 Pets and animals: Yes Pets and animals: cat(s) and dog(s) Current gender identity: decline to answer What is your relationship status?: refused to answer How often do you talk on the phone with friends or family?: decline to answer How often do you get together with friends or relatives?: decline to answer How often do you attend scientology or christian services?: decline to answer Do you belong to any clubs or organized social groups?: decline to answer Panel score (0-1 are the most socially isolated patients): 0 What type of physical activity do you participate in: none Lelo/Shinto: No preference Special lelo needs: No Do you feel safe at home: Yes Do you feel safe in your relationship?: Yes
[2022-09-06] MEDS: Budesonide/Formoterol 160/4.5 6 GM 60 PUFF INH IH (19:21)
[2022-09-06] MEDS: LORazepam 0.5 MG TAB PO (20:25)
[2022-09-06] MEDS: cefTRIAXone 1,000 MG in Normal Saline 50 ML 100 MG IVPB (21:41)
[2022-09-06] MEDS: traZODone 100 MG TAB PO (21:41)
[2022-09-06] MEDS: risperiDONE 0.5 MG TAB 2 MG PO (21:41)
[2022-09-06] MEDS: AZITHROMYCIN 250 MG in Normal Saline 250 ML IVPB (22:42)
[2022-09-07] VITALS (13 sets, daily range): BP systolic 96–112; BP diastolic 53–72; PULSE 88–128; RESP 16–24; TEMP 36.6–37.4; O2SAT 89–93
[2022-09-07 06:14] LABS: Abs Immature Grans 0.04 10^3/uL (0.0-0.06); Absolute Basophil Count 0.01 10^3/uL (0.0-0.2); Absolute Eosinophil Count 0.01 10^3/uL (0.0-0.7); Absolute Lymphocyte Count 1.25 10^3/uL (1.2-3.4); Absolute Monocyte Count 0.73 10^3/uL (0.1-0.8); Absolute Neutrophil Count 6.02 10^3/uL (1.2-6.7); Basophils % 0.1; Eosinophils % 0.1; HCT 38.7 % (36.0-46.0); HGB 12.4 g/dL (11.2-15.7); Immature Grans % 0.5; Lymphocytes % 15.5; MCH 28.9 pg (27.0-33.0); MCV 90 fL (80-95); MPV 9.5 fL (8.0-11.0); Monocytes % 9.1; Neutrophils % 74.7; Platelet Count 164 10^3/uL (130-400); RBC 4.29 10^6/uL (3.93-5.22); RDW 14.6 % (11.7-14.6); RDW-SD 48.2 fL; WBC 8.06 10^3/uL (4.4-10.8)
[2022-09-07 06:30] LABS: Anion Gap 5.3 mmol/L (3-11); BUN 12 mg/dL (7-18); CO2 33.7 mmol/L (21.0-32.0); CREATININE 0.9 mg/dL (0.55-1.02); Calcium 7.7 mg/dL (8.5-10.1); Chloride 93 mmol/L (98-107); Estimated GFR 63.43 (mL/min/1.73m2); Glucose 92 mg/dL (74-106); Magnesium 1.9 mg/dL (1.8-2.4); Potassium 3.6 mmol/L (3.5-5.1); Sodium 132 mmol/L (136-145)
[2022-09-07] MEDS: Budesonide/Formoterol 160/4.5 6 GM 60 PUFF INH IH ×2 (07:32→19:25)
[2022-09-07] MEDS: risperiDONE 0.5 MG TAB PO ×2 (08:24→20:38)
[2022-09-07] MEDS: Digoxin 0.125 MG TAB PO (08:24)
[2022-09-07] MEDS: Lactobacillus Acidophilus CAP 1 CAP PO ×2 (08:24→17:08)
[2022-09-07] MEDS: Apixaban 5 MG TAB PO ×2 (08:24→20:38)
[2022-09-07] MEDS: Potassium Chloride 20 MEQ TABCR PO ×2 (08:24→20:38)
[2022-09-07] MEDS: Sertraline 50 MG TAB PO (08:24)
[2022-09-07] MEDS: Magnesium Oxide 400 MG TAB PO (08:24)
--- NOTE | 2022-09-07 09:30 | PDOC.CMPRO ---
Date of service: 09/07/22 Time of Service: 09:30 Care Management Progress Note Progress Note Text Progress Note Text: S/O: A: Deb is an 82 year old woman admitted on 09/06/22 with pneumonia P:Anticipate, Deb will be discharged home when medically cleared by provider with no new services.? She will follow up with community providers and discharge plan of care as prescribed.? Family will drive her home when ready.? CM will continue to follow and support discharge planning needs..
[2022-09-07] MEDS: Potassium Chloride 20 MEQ TABCR 40 MEQ PO (11:10)
--- NOTE | 2022-09-07 14:26 | CHAPLAIN ---
Deb was resting in bed when I visited. She said she arrived over the weekend and my be discharged tomorrow. Her daughter visited earlier today. Deb asked for more ice water, which I got for her. I'll continue to visit if she stays.
[2022-09-07] MEDS: Furosemide 40 MG/4 ML VIAL IVP (15:03)
--- NOTE | 2022-09-07 15:52 | RESPIRATORY ---
RT Assessment Start: 09/07/22 14:05 Freq: .q shift and prn Status: Active Protocol: Document 09/07/22 15:40 RT.[email or web address] (Rec: 09/07/22 15:52 RT.HOSM [id number]) RT Assessment Pulmonary History Pulmonary History COPD Smoking History Smoking/Tobacco Use Status Former Tobacco Use Tobacco: How many years used 50 Quit Date 03/14/12 Tobacco Type cigarettes Packs per Day 1 Cigarettes per Day 20 Years smoked 50 Smoking packs per day 1 OXYGEN HISTORY: Supplemental O2 At Rest 0 With Exertion 0 CPAP Settings N/A Can use home machine No BIPAP Settings N/A Trilogy/AVAPS Settings N/A DME/Compliance DME Pt does not use home O2 at this time Current Respiratory Symptoms Current Respiratory Symptoms Cough,Sputum production Activity Activity Level Pt is poor historian Respiratory Breath Sounds Breath Sounds Faint wheezing or rhonci, decreased sounds throughout Pulse Rate <100 Respiratory Rate 18-25 Shortness of Breath None Respiratory Therapy Score Total 3 Assessment and Plan Note Mild score of 3, RT recommends to continue home medications. RT will provide initial coaching of IS and VibraPEP with deep breathing/cough.
--- NOTE | 2022-09-07 17:36 | PDOC.CMPRO ---
Date of service: 09/07/22 Time of Service: 17:36 Care Management Progress Note Progress Note Text Progress Note Text: S/O:Deb was sitting up in bed when CM met with her. She was smiling and appeared alert and oriented today. She engaged in conversation and informed CM that she hopes to be discharged today. Her daughter was present and indicated that she would be ready to take her Mom home when medically cleared. A: Deb is an 82 year old woman admitted on 09/06/22 with pneumonia P:Anticipate, Deb will be discharged home when medically cleared by provider with no new services.? She will follow up with community providers and discharge plan of care as prescribed.? Family will drive her home when ready.? CM will continue to follow and support discharge planning needs..
--- NOTE | 2022-09-07 17:36 | W.PM.PROGNOT ---
Date of Service Date of service: 09/07/22 Time of Service: 17:36 Assessment and Plan Assessment and plan (1) Chronic heart failure with preserved ejection fraction (HFpEF): Status: Acute Assessment and plan: Bilateral lower rales, increased WOB Furosemide 40 mg IV given She is not on home diuretics; did have CHF with tx last admission; consider oral diuretic (2) COPD (chronic obstructive pulmonary disease): Status: Chronic Assessment and plan: Stable at baseline, continue outpatient inhalers Possible Pneumonia, xray is unclear, she did have fever and yellow sputum; continue abx, await cx. (3) Atrial fibrillation: Status: Chronic Assessment and plan: Continue Digoxin Continue apixaban for stroke prophylaxis. 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 Stable now. Continue outpatient medication (5) DVT prophylaxis: Assessment and plan: She is on apixaban (6) Discharge planning issues: Status: Acute Assessment and plan: Stable on medical floor. She confirms DNR/DNI status. Discussed with Dr Seals Subjective Subjective Patient reports: no new complaints, tolerating a regular diet, shortness of breath and afebrile; denies diarrhea or vomiting Interval history since last seen: Denies shortness of breath, daughter at bedside reporting patient has increased wob. She is pleasantly confused and slow to answer questions, but seems to appropriately answers Exam Const General: cooperative and comfortable Nutritional Appearance: overweight Orientation: alert and awake HENNE Head: normal to inspection and normocephalic Mouth: oral mucosae normal Neck Neck: normal visual inspection Resp Effort & Inspection: able to speak in complete sentences and labored Auscultation: diminished lung sounds, rales bilaterally in the lower lung hamm and wheezes expiratory wheezes GI Inspection: normal to inspection and distended (round) Palpation: soft, no guarding and nontender Skin General skin exam: no rashes or lesions noted Neuro General: patient alert and patient awake Psych Mental Status: mental status grossly normal Speech and Movement: speech and movement normal Mood: congruent mood Affect: normal affect Objective Last Vital Signs Temp 36.9 C 09/07/22 15:03 Pulse 88 09/07/22 15:03 Resp 20 09/07/22 15:03 BP 101/63 09/07/22 15:03 Pulse Ox 91 L 09/07/22 15:03 Laboratory Results - last 24 hr 09/07/22 09/07/22 05:55 05:55 WBC 8.06 RBC 4.29 Hgb 12.4 Hct 38.7 MCV 90 MCH 28.9 MCHC 32.0 RDW 14.6 Plt Count 164 MPV 9.5 Immature Gran % 0.5 Neutrophils % 74.7 Lymphocytes % 15.5 Monocytes % 9.1 Eosinophils % 0.1 Basophils % 0.1 Nucleated RBC % 0.0 Absolute Neutrophils 6.02 Absolute Lymphocytes 1.25 Absolute Monocytes 0.73 Absolute Eosinophils 0.01 Absolute Basophils 0.01 Sodium 132 L Potassium 3.6 Chloride 93 L Carbon Dioxide 33.7 H Anion Gap 5.3 BUN 12 Creatinine 0.9 Est GFR (CKD-EPI 2020) 63.43 Glucose 92 Calcium 7.7 L Magnesium 1.9 Time Spent with Patient Time Spent with Patient: 25-34 minutes Time was spent: preparing to see the patient(eg.review tests), ordering medications,tests, procedures, referring, communicating with other health customer care voice consultant, indepentently interpreting results, counseling the patient and care coordination
[2022-09-07 20:03] LABS: Legionella Ag Detection Urine Negative (Negative)
[2022-09-07] MEDS: Normal Saline Flush 10 ML SYR IVP (20:38)
[2022-09-07] MEDS: traZODone 100 MG TAB PO (21:54)
[2022-09-07] MEDS: risperiDONE 0.5 MG TAB 2 MG PO (21:54)
[2022-09-07] MEDS: cefTRIAXone 1,000 MG in Normal Saline 50 ML 100 MG IVPB (21:58)
[2022-09-07] MEDS: Normal Saline 500 ML 30 ML IV (21:59)
[2022-09-07] MEDS: AZITHROMYCIN 250 MG in Normal Saline 250 ML IVPB (22:53)
[2022-09-08] VITALS (18 sets, daily range): BP systolic 97–138; BP diastolic 44–88; PULSE 84–114; RESP 17–22; TEMP 36.1–38.1; O2SAT 88–92
[2022-09-08] MEDS: ACETAMINOPHEN 1,000 MG/100 ML BTL 400 MG IVPB ×2 (02:45→19:47)
[2022-09-08 06:56] LABS: Abs Immature Grans 0.02 10^3/uL (0.0-0.06); Absolute Basophil Count 0.01 10^3/uL (0.0-0.2); Absolute Eosinophil Count 0.01 10^3/uL (0.0-0.7); Absolute Lymphocyte Count 0.76 10^3/uL (1.2-3.4); Absolute Monocyte Count 0.56 10^3/uL (0.1-0.8); Absolute Neutrophil Count 4.58 10^3/uL (1.2-6.7); Basophils % 0.2; Eosinophils % 0.2; HCT 37.8 % (36.0-46.0); HGB 12.2 g/dL (11.2-15.7); Immature Grans % 0.3; Lymphocytes % 12.8; MCH 29.1 pg (27.0-33.0); MCHC 32.3 % (32.0-36.0); MCV 90 fL (80-95); MPV 9.7 fL (8.0-11.0); Monocytes % 9.4; Neutrophils % 77.1; Platelet Count 159 10^3/uL (130-400); RBC 4.19 10^6/uL (3.93-5.22); RDW 14.2 % (11.7-14.6); WBC 5.94 10^3/uL (4.4-10.8)
[2022-09-08 07:08] LABS: Anion Gap 1.7 mmol/L (3-11); BUN 10 mg/dL (7-18); CO2 37.3 mmol/L (21.0-32.0); CREATININE 0.9 mg/dL (0.55-1.02); Calcium 7.7 mg/dL (8.5-10.1); Chloride 94 mmol/L (98-107); Estimated GFR 63.43 (mL/min/1.73m2); Glucose 96 mg/dL (74-106); Magnesium 1.7 mg/dL (1.8-2.4); Potassium 3.6 mmol/L (3.5-5.1); Sodium 133 mmol/L (136-145)
[2022-09-08] MEDS: Budesonide/Formoterol 160/4.5 6 GM 60 PUFF INH IH ×2 (07:41→19:32)
[2022-09-08] MEDS: Digoxin 0.125 MG TAB PO (07:47)
[2022-09-08] MEDS: Sertraline 50 MG TAB PO (07:47)
[2022-09-08] MEDS: Lactobacillus Acidophilus CAP 1 CAP PO ×2 (07:48→16:38)
[2022-09-08] MEDS: risperiDONE 0.5 MG TAB PO ×2 (07:48→19:48)
[2022-09-08] MEDS: Magnesium Oxide 400 MG TAB PO (07:48)
[2022-09-08] MEDS: Apixaban 5 MG TAB PO ×2 (07:48→19:48)
[2022-09-08] MEDS: Normal Saline Flush 10 ML SYR IVP ×2 (07:48→19:47)
[2022-09-08] MEDS: Potassium Chloride 20 MEQ TABCR PO ×2 (07:48→19:48)
--- NOTE | 2022-09-08 08:43 | PDOC.CMPRO ---
Date of service: 09/08/22 Time of Service: 08:43 Care Management Progress Note Progress Note Text Progress Note Text: S/O:Deb was sitting up in bed when CM met with her. She was alert and oriented and stated that she is feeling much zack .Her temperature was slightly elevated this morning at 38.1 and she was a little tachycardic. Additional blood work was ordered as well as a PT consult. Her procalcitonin and lactate are wnl. No note from PT available yet. A: Deb is an 82 year old woman admitted on 09/06/22 with pneumonia P:Anticipate, Deb will be discharged home when medically cleared by provider with no new services.? She will follow up with community providers and discharge plan of care as prescribed.? Family will drive her home when ready.? CM will continue to follow and support discharge planning needs..
[2022-09-08 10:58] LABS: C Diff PCR Negative (Negative)
--- NOTE | 2022-09-08 11:00 | W.PM.PROGNOT ---
Date of Service Date of service: 09/08/22 Time of Service: 10:00 Assessment and Plan Assessment and plan (1) Fever: Status: Acute Assessment and plan: thought to be d/t pneumonia, has oxygen requirements, moist cough, ? on CT scan (2) Pneumonia: Status: Acute Assessment and plan: continue rocephin and zithromax day 2/5. pulmonary toilet wean oxygen as able (3) Chronic heart failure with preserved ejection fraction (HFpEF): Status: Acute Assessment and plan: Bilateral lower rales, increased WOB Furosemide 40 mg IV given She is not on home diuretics; did have CHF with tx last admission; consider oral diuretic (4) COPD (chronic obstructive pulmonary disease): Status: Chronic Assessment and plan: Stable at baseline, continue outpatient inhalers Possible Pneumonia, xray is unclear, she did have fever and yellow sputum; continue abx, await cx. (5) Atrial fibrillation: Status: Chronic Assessment and plan: Continue Digoxin Continue apixaban for stroke prophylaxis. 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 Stable now. Continue outpatient medication (7) DVT prophylaxis: Status: Acute Assessment and plan: She is on apixaban (8) Discharge planning issues: Status: Acute Assessment and plan: Stable on medical floor. She confirms DNR/DNI status. Discussed with Dr Seals Subjective Subjective Patient reports: fever Interval history since last seen: moist cough, cultures pending Exam Const General: cooperative and comfortable Nutritional Appearance: overweight Orientation: alert and awake [facility] Head: normal to inspection and normocephalic Mouth: oral mucosae normal Neck Neck: normal visual inspection Resp Effort & Inspection: able to speak in complete sentences and labored Auscultation: diminished lung sounds, rales bilaterally in the lower lung hamm and wheezes expiratory wheezes GI Inspection: normal to inspection and distended (round) Palpation: soft, no guarding and nontender Skin General skin exam: no rashes or lesions noted Neuro General: patient alert and patient awake Psych Mental Status: mental status grossly normal Speech and Movement: speech and movement normal Mood: congruent mood Affect: normal affect Objective Last Vital Signs Temp 37.0 C 09/09/22 11:01 Pulse 112 H 09/09/22 15:34 Resp 18 09/09/22 03:36 BP 94/60 L 09/09/22 11:01 Pulse Ox 92 09/09/22 11:01 Laboratory Results - last 24 hr 09/08/22 09:35 Stool Campylobacter PCR Negative Stool Salmonella PCR Negative Stool Shigella PCR Negative Shiga Toxin (PCR) Negative Time Spent with Patient Time Spent with Patient: 25-34 minutes Time was spent: preparing to see the patient(eg.review tests), obtaining and/or reviewing separately otained hiistory, ordering medications,tests, procedures and indepentently interpreting results
[2022-09-08 12:16] LABS: Lactate 1.1 mmol/L (0.6-1.4)
[2022-09-08 13:28] LABS: Procalcitonin < 0.1 ng/mL
[2022-09-08] MEDS: LORazepam 0.5 MG TAB PO ×2 (13:33→21:14)
[2022-09-08] MEDS: cefTRIAXone 1,000 MG in Normal Saline 50 ML 100 MG IVPB (22:12)
[2022-09-08] MEDS: traZODone 100 MG TAB PO (22:13)
[2022-09-08] MEDS: risperiDONE 0.5 MG TAB 2 MG PO (22:13)
[2022-09-08] MEDS: AZITHROMYCIN 250 MG in Normal Saline 250 ML IVPB (23:01)
[2022-09-08 23:04] LABS: Campylobacter PCR Negative (Negative); Salmonella PCR Negative (Negative); Shiga Toxin PCR Negative (Negative); Shigella/Enteroinvasive Ecoli Negative (Negative)
[2022-09-09] VITALS (13 sets, daily range): BP systolic 94–129; BP diastolic 57–83; PULSE 85–145; RESP 15–18; TEMP 36.5–37.6; O2SAT 90–92
--- NOTE | 2022-09-09 08:14 | W.PALLCONSUL ---
Date of service: 09/09/22 Time of Service: 08:14 History of Present Illness History of Present Illness Chief Complaint: SOB Narrative: From H and P History of Present Illness?Chief Complaint: vomiting, diarrhea?Narrative: 82 female with h/o muliple medical problems, including prior SBO and COPD -- here with several days of nausea.vomiting and diarrhea. No reported abdominal pain or cough. In ER findings of note for temp 38.6, pulse 122, and initial O2 sats in 70s on RA; white count 10; Na 128, lactate 2.2; and CT chest and abdomen showing irregular RLL density with air bronchograms, and several fluid-filled but non-dilated loops of small bowel. Patient given 1 gr Rocephin and I was asked to evaluate for admission. Patient unable to give any history; above obtained from ER. ? Interim hx: Deb has been doing quite well. Her electrolytes have been replenished. She continues to require oxygen although I think that she is close to her baseline. She is on antibiotics. She looked at me when I asked her questions and smiled. She did not respond. Nursing staff said that in general she is doing quite well. I did see care management note from yesterday which show that she is soon to be going home Assessment and Plan Assessment and plan (1) Gastroenteritis: Status: Acute (2) Pneumonia: Status: Acute (3) Acute hypoxemic respiratory failure: Status: Acute (4) COPD (chronic obstructive pulmonary disease): Status: Chronic (5) Anxiety: Status: Chronic (6) Palliative care patient: Status: Acute Assessment and plan: Deb is very flako. Even though she is on the decline she has excellent care at home. My recommendation is to get her home soon as possible. Regarding her breathing a low-dose of morphine may be helpful She still has her catheter in. I would recommend that this be removed to increase her movement. She generally resists exercise even at her baseline. Again getting her moving may be helpful She regularly sats in the 80s. Decreasing the oxygen further may be helpful. Staff states that she is presently just over the 90 julieth at this time. We will follow-up outpatient regarding her abnormal CT scan of her chest, if patient chooses to follow-up Review of Systems Narrative: Did not indicate that anything was hurting or felt badly PFSH All Active Problems (Updated 09/09/22 @ 08:15 by Carolin Salinas MD, [place]) Palliative care patient (Acute) Fever (Acute) Gastroenteritis (Acute) Pneumonia (Acute) Acute hypoxemic respiratory failure (Acute) Discharge planning issues (Acute) SBO (small bowel obstruction) (Acute) Involuntary movements (Acute) Chronic heart failure with preserved ejection fraction (HFpEF) (Acute) Atrial fibrillation (Chronic) Tubular adenoma of colon (Chronic 03/04/14) 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 plaque per [facility] onychomycosis Cognitive change Complete edentulism, unspecified Congestive heart failure Conjunctivitis COPD (chronic obstructive pulmonary disease) with emphysema CVD (cardiovascular disease) Dependence on supplemental oxygen Depression a. with psychotic features Diarrhea (11/19/14) 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 02/18-09/19, normal metanephrines, normal dexamethasone suppression. 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 hypokalemia b. hypomagnesemia Elevated LDH Elevated serum lactate dehydrogenase (LDH) Encounter for monitoring diuretic therapy Essential (primary) hypertension 06/01/13 [place]atus her[place] [facility] [place] History of tobacco use 100pack/years History of tobacco use Hyperlipidemia Increased body mass index Ischemic bowel disease 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) Palliative care patient Palpitations 08/26/14; FREQ P[facility] Palpitations Pulmonary hypertension Right hip pain Right pontine CVA [facility]-01/30/16; 8X5 mm RUQ abdominal pain Seborrheic keratosis (01/01/16) punch/shave biopsy skin of left arm Seborrheic keratosis (01/01/16) Shortness of breath (10/14/16) SVT (supraventricular tachycardia) (09/15/14) Tachycardia Urinary frequency (08/21/15) Vascular insufficiency of intestine (06/12/15) Weight loss (04/02/14) Weight loss, abnormal (~06/11/21) 30# in last yr Surgical History Appendectomy Biopsy, Soft Tissue (01/01/16) Punch/shave biospy of skin of left arm, seborrheic keratosis Colectomy (09/18/14) DR. GRAJEDA Hemicolectomy [facility]; 09/15/14; RIGHT History of bilateral ligation of fallopian tubes History of partial colectomy 09/15/14 right hemicolectomy w/ileocolic anastomosis History of partial surgical removal of colon (09/15/14) Ligation of fallopian tube S/P AAA repair S/P tubal ligation Status post appendectomy Family History Mother Essential hypertension Alzheimer's disease Father Heart disease Breast cancer Prostate cancer Sister Myocardial infarction Sister Myocardial infarction Brother Cancer Sister No problems noted. Sister No problems noted. Brother Substance abuse Brother Substance abuse Brother Substance abuse Cancer Son No problems noted. Daughter No problems noted. Social History Smoking/Tobacco Use Status: Former Tobacco Use Quit Date: 03/14/12 Tobacco: How many years used: 50 Smoking risk assessment performed?: Yes Alcohol Intake: never Drug use: Never Substance use type: does not use Household members: other Details: 4 Pets and animals: Yes Pets and animals: cat(s) and dog(s) Current gender identity: decline to answer What is your relationship status?: refused to answer How often do you talk on the phone with friends or family?: decline to answer How often do you get together with friends or relatives?: decline to answer How often do you attend pentecostal or cheondoism services?: decline to answer Do you belong to any clubs or organized social groups?: decline to answer Panel score (0-1 are the most socially isolated patients): 0 What type of physical activity do you participate in: none Lelo/Rastafarian: No preference Special lelo needs: No Do you feel safe at home: Yes Do you feel safe in your relationship?: Yes Exam Narrative Exam Narrative: 82-year-old woman with multiple admissions to the hospital. Last 1 was for an SBO. This does not seem to be the problem today although she is not eating very well. Her heart rate was in the upper limit of normal. Very little air movement in her lungs partially because of her sleepiness. Abdomen had good bowel sounds and she did not grimace when I did an abdominal exam Results Last Vital Signs Temp 99.1 F 09/09/22 07:27 Pulse 85 09/09/22 07:27 Resp 18 09/09/22 03:36 BP 129/60 09/09/22 07:27 Pulse Ox 90 L 09/09/22 07:27 MPRESSION: CT of chest/abd 1. The right lower lobe density has increased in size compared to the prior examination.? This may reflect chronic atelectasis, however, mass or infection cannot be excluded. 2. Stable left upper lobe nodule.? 3. Nondilated fluid-filled loops of small and large bowel which may represent enterocolitis/diarrheal illness. 4. Small amount of free fluid in the pelvis. 5. Stable findings in the abdomen and pelvis as described above.? Labs 09/08/22 06:30 09/08/22 06:30 Labs: Laboratory Results - last 24 hr 09/07/22 09/08/22 09:35 12:05 VBG Lactate 1.1 Procalcitonin < 0.1 Stl C.difficile Tox PCR Negative
[2022-09-09] MEDS: Budesonide/Formoterol 160/4.5 6 GM 60 PUFF INH IH ×2 (09:04→21:13)
[2022-09-09] MEDS: Digoxin 0.125 MG TAB PO (09:22)
[2022-09-09] MEDS: Magnesium Oxide 400 MG TAB PO (09:22)
[2022-09-09] MEDS: Apixaban 5 MG TAB PO ×2 (09:22→21:12)
[2022-09-09] MEDS: Sertraline 50 MG TAB PO (09:22)
[2022-09-09] MEDS: Lactobacillus Acidophilus CAP 1 CAP PO ×2 (09:22→16:57)
[2022-09-09] MEDS: risperiDONE 0.5 MG TAB PO ×2 (09:22→21:12)
[2022-09-09] MEDS: Potassium Chloride 20 MEQ TABCR PO ×2 (09:23→21:12)
[2022-09-09] MEDS: Normal Saline Flush 10 ML SYR IVP (09:23)
--- NOTE | 2022-09-09 10:39 | PDOC.CMPRO ---
Date of service: 09/09/22 Time of Service: 10:39 Care Management Progress Note Progress Note Text Progress Note Text: S/O:Deb was sitting up in a chair when CM met with her. She was alert and oriented but slow to respond to questions. Deb had a PT evaluation today and was able to ambulate in the hallway, however, required the assist of 2 people. Deb lives alone with her daughter so a 2 person assist would make mobilizing her at home a challenge at this time. CM will discuss with her daughter Mimi. She has planned to take Deb back home when discharged, but short term rehab or home health services may be beneficial. A: Deb is an 82 year old woman admitted on 09/06/22 with pneumonia P:Anticipate, Deb will be discharged home when medically cleared by provider, possibly with new home health services.? She will follow up with community providers and discharge plan of care as prescribed.? Family will drive her home when ready.? CM will continue to follow and support discharge planning needs..
[2022-09-09] MEDS: guaiFENesin 600 MG TABCR PO ×2 (11:24→21:12)
--- NOTE | 2022-09-09 12:58 | PT.INIE ---
Date of service: 09/09/22 Time of Service: 11:15 PT Notes Visit Reasons: Pneumonia Physical Therapy Inpatient Initial Evaluation Date: 09/09/2022 Referring Doctor: Ella Koenig NP PT Orders: PT CONSULT: Eval/treat Precautions: Fall. Standard. Activity as tolerated. Hard of hearing. Patient Profile/Admitting Diagnosis:? Deb Her is an 82-year-old female with diagnoses of gastroenteritis, pneumonia, acute hypoxemic respiratory failure, COPD exacerbation and anxiety. PMHX: All Active Problems? 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 Abdominal aortic aneurysm (05/31/12) 4.4 cm 07/20 s/p repair 2012 Acute and chronic respiratory failure with hypoxia Arm skin lesion, left (12/09/15) Atherosclerosis Atherosclerosis Bradycardia Bruit Bruit of left carotid artery mild-mod. 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 02/18-09/19, normal metanephrines, normal dexamethasone suppression. Disorder of adrenal gland Disorder of appendix 12/07/12? s/p appendectomy Disorder of appendix (12/07/12) DVT prophylaxis Electrolyte imbalance (09/15/14) a.? hypokalemia b.? hypomagnesemia Elevated LDH Elevated serum lactate dehydrogenase (LDH) Encounter for monitoring diuretic therapy Essential (primary) hypertension 06/01/13 Hiatus hernia syndrome 12/05/14 [facility] History of tobacco use 100pack/years History of tobacco use Hyperlipidemia Increased body mass index Ischemic bowel disease 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) Palliative care patient Palpitations 08/26/14; FREQ PVC BY HOLTER Palpitations Pulmonary hypertension Right hip pain Right pontine CVA [facility]-01/30/16; 8X5 mm RUQ abdominal pain Seborrheic keratosis (01/01/16) punch/shave biopsy skin of left arm Seborrheic keratosis (01/01/16) Shortness of breath (10/14/16) SVT (supraventricular tachycardia) (09/15/14) Tachycardia Urinary frequency (08/21/15) Vascular insufficiency of intestine (06/12/15) Weight loss (04/02/14) Weight loss, abnormal (~06/11/21) 30# in last yr Surgical History? Appendectomy Biopsy, Soft Tissue (01/01/16) Punch/shave biospy of skin of left arm, seborrheic keratosisColectomy (09/18/14) DR. GRAJEDAHemicolectomy [facility]; 09/15/14; RIGHTHistory of bilateral ligation of fallopian tubes History of partial colectomy 09/15/14? right hemicolectomy w/ileocolic anastomosisHistory of partial surgical removal of colon (09/15/14) Ligation of fallopian tube S/P AAA repair S/P tubal ligation Status post appendectomy Social History/Home Situation: Lives with daughter in a private home.? Uses a FWW for all mobility ADL performance Equipment Owned/DME: FWW Subjective: Agreeable to PT consult. Reported minimal shortness of breath after walking activity, resolved with rest. Objective: General Observation: Supine in bed.? Telemetry monitoring in place.? Oxygen supplementation via NC, 1L/minute. Mental Status: Alert and oriented as to person, place, time, and purpose. Able to pay attention, focus, and respond appropriately. Pain: Denies Vital Signs: Closely monitored by nursign staff ROM: Right Upper Extremity: ? Shoulder Flexion lacks the last 25% of AROM. Shoulder abduction lacks the last 25% of AROM. Elbow flexion WFL. Wrist flexion WFL. Functional opening and closing of hand WFL. Left Upper Extremity:? Shoulder Flexion lacks the last 25% of AROM. Shoulder abduction lacks the last 25% of AROM. Elbow flexion WFL. Wrist flexion WFL. Functional opening and closing of hand WFL. Right Lower Extremity: Hip flexion lacks the last 25% of AROM. Hip abduction lacks the last 25% of AROM. Knee flexion 30 to 90 degrees. Knee extesnion -30 degrees. Ankle dorsiflexion WFL. Ankle plantarflexion WFL. Left Lower Extremity: Hip flexion lacks the last 25% of AROM. Hip abduction lacks the last 25% of AROM. Knee flexion 30 to 90 degrees. Knee extesnion -30 degrees. Ankle dorsiflexion WFL. Ankle plantarflexion WFL. Strength: Right Upper Extremity: Shoulder flexors 3-/5. Shoulder abductors 3-/5. Elbow flexors 3-/5. Elbow extensors 3-/5. Sap Integration Architect strong. Left Upper Extremity: Shoulder flexors 3-/5. Shoulder abductors 3-/5. Elbow flexors 3-/5. Elbow extensors 3-/5. Sap Integration Architect strong. Right Lower Extremity: Hip flexors 3-/5. Hip abductors 3-/5. Knee flexors 3-/5. Knee extensors 3-/5. Ankle dorsiflexors 3-/5. Ankle plantarflexors 4-/5. Left Lower Extremity: Hip flexors 3-/5. Hip abductors 3-/5. Knee flexors 3-/5. Knee extensors 3-/5. Ankle dorsiflexors 3-/5. Ankle plantarflexors 4-/5. Bed Mobility/Transfers: Supine to sit minimal assist Sit to stand minimal assist of 2 and use of FWW Stand to sit minimal assist of 2 and use of FWW Bed to reclining minimal assist of 2 and use of FWW Gait: Instructed patient with level surface ambulation of about 60 feet requiring minimla assist of 2 and wheelchair follow. Valentine decreased. Step height decreased. Step length decreased. Balance: Static Sitting: Good Dynamic Sitting: Good Static Standing: Fair Dynamic Standing: Fair Special Tests: Mobility Limitations Standardized Measure [facility] 6 clicks Basic Mobility Inpatient Short Form: Raw Score: 12? CMS Score: 69% deficit? ? ? Informed Consent/Education:? Patient was instructed in purpose of PT consult and plan of care. Agreeable to proceed with established PT POC to achieve personal goals. Assessment: Low endurance and gets short of breathe easily,? needs frequent rests.? On palliative care,? activity as tolerated only.? Wants to go home with daughter,? refusing SNF placement. Patient presents with clinical signs and symptoms consistent with current/admitting diagnoses that have resulted to mobility limitations, gait instability, generalized weakness, and overall ADL decline as demonstrated by the following impairment level findings: 1.? Decreased strength to B UE/LE major muscle groups 2.? Impaired sitting/standing balance 3.? Impaired activity tolerance 4.? Shortness of breath Impairments are contributing to the following functional limitations: 1.? Decline in bed mobility skills 2.? Decline in transfer skills 3.? Difficulty with ambulation without assistive device and physical assistance 4.? Increased completion time for mobility ADL performance 5.? Increased risk for falls Patient is assessed as a 51277 moderate complexity based on the following: History: 81-year-old female with past medical history as indicated above Examination: Demonstrable impairment in strength, balance, and mobility level with underlying impairments and functional limitations as exhibited above as well as deficit score of 47% utilizing the [facility] Mobility Inpatient Short Form Presentation: [id number] moderate complexity Decision Making:? complexity Goals: Goals X1 week 1. Supine-Sit independent 2. Sit-Supine independent 3. Sit-Stand independent 4. Stand-Sit independent with FWW 5. Bed-Chair independent with FWW 6. Chair-Bed independent with FWW 7. Independent gait on level surface with use of FWW for at least 100 feet without report of pain nor dyspnea 8. Independent stair negotiation while holding onto B rails for at least 5 steps without report of pain nor dyspnea 9. Independent with home exercise program 10. Good static and dynamic standing balance/tolerance Plan of Care/Treatment Plan: 1-2x/day, 7 days/week x 1 week. Plan of care has been reviewed with the MESS ATTENDANT CREW providing the service under Physical Therapy direction. Initiate Physical Therapy intervention for pain management as needed, strengthening, bed mobility, transfers, gait, stairs, balance training, and use of assistive device. DISCHARGE RECOMMENDATIONS: [] ? Home with no services [] [] ? Home with services [specify] [] ? Home with outpatient PT [] [] ? SNF for continued rehabilitation [] [] ? Franchise Development Manager Care [] [] ? SNF versus LTC based on ability to participate and progress [] [X] SNF vs. HH PT based on patient's progress towards goals TREATMENT CODE/TIME: 24310 x 20 minutes,? 46672 x 10 minutes beginning at 11:15 AM. Thank you for the opportunity to participate in the care of this patient. Sayda Yan PT, DPT, CLT [facility] [place], [place]
--- NOTE | 2022-09-09 16:33 | PT.INTREAT ---
Date of service: 09/09/22 Time of Service: 16:00 PT Notes Visit Reasons: Pneumonia Inpatient Physical Therapy Treatment Note [facility] Date: 09/09/22 PRECAUTIONS: fall, standard, activity as tolerated, Hard of hearing. SUBJECTIVE: Patient sitting up in recliner, agreeable to therapy. Daughter Mimi and supervising PT Sayda Yan present. OBJECTIVE: PAIN: none reported BED MOBILITY/TRANSFERS Sit-stand: CGA with verbal cue to push up from armrests rather than pulling on walker, which patient does Stand-sit: CGA with verbal cue to reach back for chair, which patient does not do, instead holding on to walker while sitting Bed-Chair: CGA Chair-bed: CGA GAIT Assistive Device: front wheeled walker Weight bearing: full Assist: CGA with wheelchair follow Distance: 200 feet with 3 seated rests Deviation: reduced step height, reduced step length, reduced monse VITALS: SaO2 91% on 1L/min supplemental O2 ASSESSMENT: Patient tolerates therapy well, resting in recliner at end of treatment with feet up, blanket on, call davalos in reach. PLAN: continue strengthening per plan of care until patient is medically cleared for discharge. TREATMENT CODE/TIME: 14517 Gait 30 minutes beginning at 16:00
--- NOTE | 2022-09-09 17:23 | W.PM.PROGNOT ---
Date of Service Date of service: 09/09/22 Time of Service: 17:23 Assessment and Plan Assessment and plan (1) Pneumonia: Status: Acute Assessment and plan: continue rocephin and zithromax day 3/5. pulmonary toilet wean oxygen as able (2) Chronic heart failure with preserved ejection fraction (HFpEF): Status: Acute Assessment and plan: Bilateral lower rales, increased WOB Furosemide 40 mg IV given She is not on home diuretics; did have CHF with tx last admission; consider oral diuretic (3) COPD (chronic obstructive pulmonary disease): Status: Chronic Assessment and plan: Stable at baseline, continue outpatient inhalers Possible Pneumonia, xray is unclear, she did have fever and yellow sputum; continue abx, await cx. (4) Atrial fibrillation: Status: Chronic Assessment and plan: Continue Digoxin Continue apixaban for stroke prophylaxis. Qualifiers: Atrial fibrillation type: unspecified Qualified Code(s): I48.91 - Unspecified atrial fibrillation (5) Depression: Status: Chronic Assessment and plan: Long history of depression with psychotic features in the past. Stable now. Continue outpatient medication (6) DVT prophylaxis: Status: Acute Assessment and plan: She is on apixaban (7) Discharge planning issues: Status: Acute Assessment and plan: Stable on medical floor. She confirms DNR/DNI status. plan for discharge to home when medically stable. Discussed with Dr Seals Subjective Subjective Patient reports: no new complaints and afebrile Exam Const General: cooperative and comfortable Nutritional Appearance: overweight Orientation: alert and awake HENHI Head: normal to inspection and normocephalic Mouth: oral mucosae normal Neck Neck: normal visual inspection Resp Effort & Inspection: able to speak in complete sentences and labored Auscultation: diminished lung sounds, rales bilaterally in the lower lung hamm and wheezes expiratory wheezes GI Inspection: normal to inspection and distended (round) Palpation: soft, no guarding and nontender Skin General skin exam: no rashes or lesions noted Neuro General: patient alert and patient awake Psych Mental Status: mental status grossly normal Speech and Movement: speech and movement normal Mood: congruent mood Affect: normal affect Objective Last Vital Signs Temp 37.0 C 09/09/22 11:01 Pulse 112 H 09/09/22 15:34 Resp 18 09/09/22 03:36 BP 94/60 L 09/09/22 11:01 Pulse Ox 92 09/09/22 11:01 Laboratory Results - last 24 hr 09/08/22 09:35 Stool Campylobacter PCR Negative Stool Salmonella PCR Negative Stool Shigella PCR Negative Shiga Toxin (PCR) Negative Time Spent with Patient Time Spent with Patient: 25-34 minutes Time was spent: preparing to see the patient(eg.review tests), referring, communicating with other health skin care specialist, indepentently interpreting results and care coordination
[2022-09-09] MEDS: risperiDONE 0.5 MG TAB 2 MG PO (21:12)
[2022-09-09] MEDS: LORazepam 0.5 MG TAB PO (21:12)
[2022-09-09] MEDS: traZODone 100 MG TAB PO (21:12)
[2022-09-09] MEDS: cefTRIAXone 1 GM/50 ML BAG IVPB (21:13)
[2022-09-09] MEDS: AZITHROMYCIN 250 MG in Normal Saline 250 ML IVPB (22:03)
[2022-09-10] VITALS (13 sets, daily range): BP systolic 91–142; BP diastolic 51–95; PULSE 87–120; RESP 16–22; TEMP 37.2–37.5; O2SAT 89–98
[2022-09-10] MEDS: Sertraline 50 MG TAB PO (07:56)
[2022-09-10] MEDS: Digoxin 0.125 MG TAB PO (07:56)
[2022-09-10] MEDS: guaiFENesin 600 MG TABCR PO ×2 (07:56→21:04)
[2022-09-10] MEDS: Potassium Chloride 20 MEQ TABCR PO ×2 (07:56→21:04)
[2022-09-10] MEDS: Lactobacillus Acidophilus CAP 1 CAP PO ×2 (07:56→17:49)
[2022-09-10] MEDS: Apixaban 5 MG TAB PO ×2 (07:56→21:04)
[2022-09-10] MEDS: Magnesium Oxide 400 MG TAB PO (07:56)
[2022-09-10] MEDS: risperiDONE 0.5 MG TAB PO ×2 (07:57→21:04)
--- NOTE | 2022-09-10 08:51 | PDOC.CMPRO ---
Date of service: 09/10/22 Time of Service: 08:51 Care Management Progress Note Progress Note Text Progress Note Text: S/O:Deb was sitting up in a chair when CM met with her. Her lunch tray was in front of her but she was dozing. Deb has improved clinically and has completed her 5 day course of IV antibiotics for the pneumonia she was diagnosed to have. Her nasal oxygen has been discontinued and her oxygen saturation levels are in the low 90s. Deb will likely discharge home tomorrow with no new services. She has been ambulating with PT and was able to walk 100 feet today and climb 5 stairs. A: Deb is an 82 year old woman admitted on 09/06/22 with pneumonia P:Anticipate, Deb will be discharged home when medically cleared by provider, possibly with? new home health services.? She will follow up with community providers and discharge plan of care as prescribed.? Family will drive her home when ready.? CM will continue to follow and support discharge planning needs..
[2022-09-10] MEDS: Budesonide/Formoterol 160/4.5 6 GM 60 PUFF INH IH ×2 (08:56→21:06)
--- NOTE | 2022-09-10 10:26 | RESPIRATORY ---
RT Assessment Start: 09/07/22 14:05 Freq: .q shift and prn Status: Active Protocol: Document 09/10/22 10:21 KYLE (Rec: 09/10/22 10:26 KYLE [id number]) RT Assessment Pulmonary History Pulmonary History COPD Smoking History Smoking/Tobacco Use Status Former Tobacco Use Tobacco: How many years used 50 Quit Date 03/14/12 Tobacco Type cigarettes Packs per Day 1 Cigarettes per Day 20 Years smoked 50 Smoking packs per day 1 OXYGEN HISTORY: Supplemental O2 At Rest 0 With Exertion 0 CPAP Settings N/A Can use home machine No BIPAP Settings N/A Can you home machine No Trilogy/AVAPS Settings N/A Can use home machine No DME/Compliance DME Pt doesn't use O2 at home and titrated to RA today. Compliance N/A Current Respiratory Symptoms Current Respiratory Symptoms Cough Respiratory Breath Sounds Breath Sounds Faint wheezing or rhonci, decreased sounds throughout Response No change Pulse Rate <100 Respiratory Rate 18-25 Shortness of Breath None Respiratory Therapy Score Total 3 Assessment and Plan Note Continue home regiment and patient currently has both IS and Acapella in room. RT encouraged patient to use device throughout the day.
--- NOTE | 2022-09-10 13:52 | PT.INTREAT ---
Date of service: 09/10/22 Time of Service: 13:26 PT Notes Visit Reasons: Pneumonia Inpatient Physical Therapy Treatment Note [facility] Date: 09/10/22 PRECAUTIONS: Fall, standard, activity as tolerated, Quijano in place. SUBJECTIVE: Patient sitting up in chair, agreeable to therapy. OBJECTIVE: PAIN: none reported BED MOBILITY/TRANSFERS Sit-stand: CGA with verbal and tactile cues to initiate, as well as remembering to push up from armrests. Stand-sit: CGA with verbal cues to reach back for armrests GAIT Assistive Device: FWW Weight bearing: full Assist: CGA Distance: 100 feet Deviation: Patient becomes noticeably short of breath STAIRS: Patient ascends and descends 5 six inch stairs with CGA and one handrail, demonstrating step-to gait pattern. ASSESSMENT: patient tolerates therapy well, is comfortable sitting up in chair at end of therapy with blanket and call davalos PLAN: continue global strengthening per plan of care until patient is ready for discharge TREATMENT CODE/TIME: 62418 Gait 24 minutes beginning at 13:26
--- NOTE | 2022-09-10 17:53 | PGE_ITS ---
Date of Service Date of service: 09/10/22 Time of Service: 17:53 Assessment and Plan Assessment and plan (1) Fever: Status: Resolved Assessment and plan: thought to be d/t pneumonia, has oxygen requirements, moist cough, ? on CT scan (2) Pneumonia: Status: Acute Assessment and plan: continue rocephin and zithromax day 5/5 pulmonary toilet wean oxygen as able (3) Chronic heart failure with preserved ejection fraction (HFpEF): Status: Acute Assessment and plan: euvolemic, (4) COPD (chronic obstructive pulmonary disease): Status: Chronic Assessment and plan: Stable at baseline, continue outpatient inhalers (5) Atrial fibrillation: Status: Chronic Assessment and plan: Continue Digoxin Continue apixaban for stroke prophylaxis. 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 Stable now. Continue outpatient medication (7) DVT prophylaxis: Status: Acute Assessment and plan: She is on apixaban (8) Discharge planning issues: Status: Acute Assessment and plan: plan to discharge home tomorrow if remains medically stable. . Discussed with Dr Seals Subjective Subjective Patient reports: no new complaints, feels better, tolerating liquids well, tolerating a regular diet and afebrile; denies shortness of breath Exam Const General: cooperative and comfortable Nutritional Appearance: overweight Orientation: alert and awake HENWA Head: normal to inspection and normocephalic Mouth: oral mucosae normal Neck Neck: normal visual inspection Resp Effort & Inspection: able to speak in complete sentences and labored Auscultation: diminished lung sounds, rales bilaterally in the lower lung hamm and wheezes expiratory wheezes GI Inspection: normal to inspection and distended (round) Palpation: soft, no guarding and nontender Skin General skin exam: no rashes or lesions noted Neuro General: patient alert and patient awake Psych Mental Status: mental status grossly normal Speech and Movement: speech and movement normal Mood: congruent mood Affect: normal affect Objective Last Vital Signs Temp 37.2 C 09/10/22 15:29 Pulse 95 H 09/10/22 16:12 Resp 22 09/10/22 11:04 BP 91/51 L 09/10/22 15:29 Pulse Ox 93 09/10/22 16:46 Time Spent with Patient Time Spent with Patient: 25-34 minutes Time was spent: preparing to see the patient(eg.review tests), obtaining and/or reviewing separately otained hiistory, referring, communicating with other health care information associate, indepentently interpreting results and care coordination
[2022-09-10] MEDS: risperiDONE 0.5 MG TAB 2 MG PO (21:04)
[2022-09-10] MEDS: LORazepam 0.5 MG TAB PO (21:04)
[2022-09-10] MEDS: traZODone 100 MG TAB PO (21:04)
[2022-09-11] VITALS (8 sets, daily range): BP systolic 109–134; BP diastolic 70–80; PULSE 98–132; RESP 18–20; TEMP 36.4–36.7; O2SAT 89–93
[2022-09-11] MEDS: Sertraline 50 MG TAB PO (08:02)
[2022-09-11] MEDS: Digoxin 0.125 MG TAB PO (08:02)
[2022-09-11] MEDS: Potassium Chloride 20 MEQ TABCR PO (08:02)
[2022-09-11] MEDS: guaiFENesin 600 MG TABCR PO (08:03)
[2022-09-11] MEDS: Magnesium Oxide 400 MG TAB PO (08:03)
[2022-09-11] MEDS: Lactobacillus Acidophilus CAP 1 CAP PO (08:03)
[2022-09-11] MEDS: Apixaban 5 MG TAB PO (08:03)
[2022-09-11] MEDS: risperiDONE 0.5 MG TAB PO (08:03)
--- NOTE | 2022-09-11 08:10 | PT.INTREAT ---
PT Notes Visit Reasons: Pneumonia Date: 09/11/22 PRECAUTIONS: Fall, standard, activity as tolerated, Quijano in place. SUBJECTIVE: Patient sitting up in chair, doing pretty good. OBJECTIVE: ? PAIN: none reported ? BED MOBILITY/TRANSFERS ? Sit-stand: CGA with verbal and tactile cues to initiate, as well as remembering to push up from armrests. ? Stand-sit: CGA with verbal cues to reach back for armrests ? GAIT? Assistive Device: FWW? Weight bearing: full Assist: CGA Distance:? 100 feet? Deviation: Patient becomes noticeably short of breath ? STAIRS: Patient ascends and descends 5 six inch stairs with CGA and one handrail, demonstrating step-to gait pattern. ? ASSESSMENT:? patient tolerates therapy well, is comfortable sitting up in chair at end of therapy with elizabethet and margarita davalos PLAN: continue global strengthening per plan of care until patient is ready for discharge TREATMENT CODE/TIME: 55137 Gait 24 minutes beginning at 13:26
[2022-09-11] MEDS: Budesonide/Formoterol 160/4.5 6 GM 60 PUFF INH IH (08:13)
--- NOTE | 2022-09-11 10:01 | PT.INNT ---
PT Notes Visit Reasons: Pneumonia Pt approached before breakfast agreed to participating with therapy after she finishes her food, pt was very stuporic after re-approached and was not abvle to get pt awake enough for therapy.
--- NOTE | 2022-09-11 11:22 | W.PM.DS.N ---
Date of service: 09/11/22 Time of Service: 11:22 DS: Diagnosis Discharge Diagnosis (1) Fever: Status: Resolved (2) Pneumonia: Status: Acute (3) Chronic heart failure with preserved ejection fraction (HFpEF): Status: Acute (4) COPD (chronic obstructive pulmonary disease): Status: Chronic (5) Atrial fibrillation: Status: Chronic (6) Depression: Status: Chronic Discharge Plan Disposition Patient Disposition: Home Condition: Stable Discharge Details Reason For Visit: Pneumonia Admit Date/Time: 09/06/22 01:12 Admit Provider: Benedict Oliver Attending Provider: Benedict Oliver Primary Care Provider: Carolin Salinas Hospital Course Hospital Course: This is an 82-year-old female patient with significant past medical history including COPD small bowel obstruction heart failure with preserved ejection fraction atrial fibrillation hypertension Portillo who presents to the emergency department with complaints of nausea vomiting diarrhea air she denied abdominal pain or cough her work-up in the emergency department did show fever and hypoxia with a room air sat of 70. She was started on ceftriaxone and azithromycin and admitted under hospitalist services for community-acquired pneumonia. She was given IV fluids and slowly responded to treatment. She was weaned off oxygen. She was taking good oral intake. She completed a 5-day course of antibiotics to treat her community-acquired pneumonia. Her blood cultures remained negative to date. Hospital course complicated with loose stooling which was negative for fecal bacterial pathogens or C. difficile. This did resolve. She is now back to her baseline she has been really ambulated with physical therapy and deemed safe for discharge to home plan is for discharge to home with no new services she has completed her course of antibiotics there have been no medication changes. discharge discussed with DR Mcmullen [place] Meds and New Rx's Prescriptions: Continued potassium chloride [Klor-Con M20] 20 mEq tablet,ER particles/crystals 20 meq PO BID Qty: 180 5RF magnesium oxide 400 mg (241.3 mg magnesium) tablet 400 mg PO DAILY Qty: 90 5RF lorazepam 0.5 mg tablet 0.5 mg PO TID PRN Qty: 270 4RF risperidone [Risperdal] 2 mg tablet 2 mg PO HS Qty: 90 5RF sertraline 50 mg tablet 50 mg PO DAILY Qty: 90 5RF trazodone 100 mg tablet 100 mg PO HS Qty: 90 5RF risperidone [Risperdal] 0.5 mg tablet 0.5 mg PO BID protein [Ensure High Protein] Powder 1 pwd PO DAILY Qty: 480 4RF diphth,pertus(acell),tetanus 2.5-8-5 Lf-mcg-Lf/0.5mL syringe 0.5 ml IM ONCE Qty: 0.5 0RF Rx Instructions: as a single dose Shingrix (PF) 50 mcg/0.5 mL suspension for reconstitution 0.5 ml IM ONCE Qty: 1 1RF Rx Instructions: as a single dose. Repeat in 2 months Lactobacillus acidophilus 1 EACH tablet 1 ea PO BID Eliquis 5 mg tablet 5 mg PO BID Qty: 180 5RF digoxin 125 mcg (0.125 mg) tablet 125 mcg PO DAILY Qty: 90 5RF Ensure High Protein Liquid 237 ml PO BID Qty: 89569 12RF Rx Instructions: dispense 60 cans acetaminophen [Tylenol] 325 MG tablet 650 mg Q8H PRN PRN fluticasone propion-salmeterol [Advair Diskus] 500-50 mcg/dose blister with device 1 inh INHALATION BID Patient Comments: INHALE 1 PUFF BY MOUTH TWO TIMES A DAY Discharge Instructions Instructions: Pneumonia (DC) Stand Alone Forms: Nursing Discharge Form Referrals: Carolin Salinas MD, [place] [Primary Care Provider] - (Call on Tuesday to follow up in 1-2 weeks with PCP) Activity:: Activity as Tolerated Equipment/Supplies:: No Equipment Needed Diet:: As Tolerated Discharge Orders Discharge Orders: Discharge Order (Routine); Ordered 09/11/22 Ordered By: Ella Koenig Discharge Data Discharge Date/Time-TO BE ENTERED AT DEPARTURE: 09/11/22 12:50 Discharge Comment: pt left with daughter for home DS: Summary Time Spent with Patient providing and/or coordinating discharge services: Less than 30 minutes Status at Discharge Functional status at discharge: uses cane/walker Overall status at discharge: patient is progressing back to baseline Mental Status: mental status grossly normal Speech and Movement: speech and movement normal Mood: congruent mood Affect: normal affect Exam Const General: cooperative and comfortable Nutritional Appearance: overweight Orientation: alert and awake HENMT Head: normal to inspection and normocephalic Mouth: oral mucosae normal Neck Neck: normal visual inspection Resp Effort & Inspection: able to speak in complete sentences and labored Auscultation: diminished lung sounds, rales bilaterally in the lower lung hamm and wheezes expiratory wheezes GI Inspection: normal to inspection and distended (round) Palpation: soft, no guarding and nontender Skin General skin exam: no rashes or lesions noted Neuro General: patient alert and patient awake Psych Mental Status: mental status grossly normal Speech and Movement: speech and movement normal Mood: congruent mood Affect: normal affect DS: Data Vitals/I&O Vitals and I&O: Vital Signs Temperature 36.4 C L 09/11/22 11:17 Temperature Source Tympanic 09/11/22 11:17 Pulse 98 H 09/11/22 11:17 Pulse Rhythm Irregular 09/11/22 09:16 Pulse 109 H 09/06/22 02:10 Respiratory Rate 20 09/11/22 11:17 Respiratory Effort Non-Labored 09/11/22 09:16 Respiratory Depth Shallow 09/11/22 09:16 Respiratory Pattern Normal 09/11/22 09:16 Blood Pressure 109/72 09/11/22 11:17 Blood Pressure Mean 66 09/06/22 02:01 Pulse Oximetry 93 09/11/22 11:17 Oxygen Delivery Method Room Air 09/11/22 11:17 Oxygen Flow Rate 0 09/11/22 11:17 Pain Level 0 09/11/22 11:17 Comment RN Notified 09/10/22 19:10 Intake & Output 09/10/22 09/10/22 09/11/22 11:59 23:59 11:59 Intake Total 660 / 910 250 / 910 250 / 250 Output Total 600 / 600 900 / 900 Balance 660 / 310 -350 / 310 -650 / -650 Intake: IV 300 / 300 Oral 360 / 610 250 / 610 250 / 250 Output: Urine 600 / 600 900 / 900 Other: Urine Color Yellow Yellow Yellow Urine Appearance Clear Clear Clear Urine Odor Foul Stool Size Moderate Stool Characteristics Soft Liquid Brown Voiding Methods Diaper Incontinent Data Completed and Pending Labs on day of discharge: Preliminary micro results at discharge 09/08/22 07:05 Blood Culture - Preliminary Blood NO GROWTH 72 HOURS 09/08/22 06:30 Blood Culture - Preliminary Blood NO GROWTH 72 HOURS PFSH All Active Problems (Updated 09/10/22 @ 17:54 by Ella Koenig NP) Depression (Chronic) a. 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 plaque per [place] onychomycosis Cognitive change Complete edentulism, unspecified Congestive heart failure Conjunctivitis COPD (chronic obstructive pulmonary disease) with emphysema CVD (cardiovascular disease) Dependence on supplemental oxygen Depression a. with psychotic features Diarrhea (11/19/14) 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 02/18-09/19, normal metanephrines, normal dexamethasone suppression. 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 hypokalemia b. hypomagnesemia Elevated LDH Elevated serum lactate dehydrogenase (LDH) Encounter for monitoring diuretic therapy Essential (primary) hypertension 06/01/13 Hiatus hernia syndrome 12/05/14 [facility] [place]; EGD History of tobacco use 100pack/years History of tobacco use Hyperlipidemia Increased body mass index Ischemic bowel disease 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) Palliative care patient Palpitations 08/26/14; FREQ PVC BY HOLTER Palpitations Pulmonary hypertension Right hip pain Right pontine CVA [facility]-01/30/16; 8X5 mm RUQ abdominal pain Seborrheic keratosis (01/01/16) punch/shave biopsy skin of left arm Seborrheic keratosis (01/01/16) Shortness of breath (10/14/16) SVT (supraventricular tachycardia) (09/15/14) Tachycardia Urinary frequency (08/21/15) Vascular insufficiency of intestine (06/12/15) Weight loss (04/02/14) Weight loss, abnormal (~06/11/21) 30# in last yr Surgical History Appendectomy Biopsy, Soft Tissue (01/01/16) Punch/shave biospy of skin of left arm, seborrheic keratosis Colectomy (09/18/14) DR. GRAJEDA Hemicolectomy [facility]; 09/15/14; RIGHT History of bilateral ligation of fallopian tubes History of partial colectomy 09/15/14 right hemicolectomy w/ileocolic anastomosis History of partial surgical removal of colon (09/15/14) Ligation of fallopian tube S/P AAA repair S/P tubal ligation Status post appendectomy Family History Mother Essential hypertension Alzheimer's disease Father Heart disease Breast cancer Prostate cancer Sister Myocardial infarction Sister Myocardial infarction Brother Cancer Sister No problems noted. Sister No problems noted. Brother Substance abuse Brother Substance abuse Brother Substance abuse Cancer Son No problems noted. Daughter No problems noted. Social History Smoking/Tobacco Use Status: Former Tobacco Use Quit Date: 03/14/12 Tobacco: How many years used: 50 Smoking risk assessment performed?: Yes Alcohol Intake: never Drug use: Never Substance use type: does not use Household members: other Details: 4 Pets and animals: Yes Pets and animals: cat(s) and dog(s) Current gender identity: decline to answer What is your relationship status?: refused to answer How often do you talk on the phone with friends or family?: decline to answer How often do you get together with friends or relatives?: decline to answer How often do you attend denominational or anglican services?: decline to answer Do you belong to any clubs or organized social groups?: decline to answer Panel score (0-1 are the most socially isolated patients): 0 What type of physical activity do you participate in: none Lelo/Restorationist: No preference Special lelo needs: No Do you feel safe at home: Yes Do you feel safe in your relationship?: Yes Time Spent with Patient Time Spent with Patient: <45 minutes Time was spent: preparing to see the patient(eg.review tests), obtaining and/or reviewing separately otained hiistory, indepentently interpreting results and counseling the patient
--- NOTE | 2022-09-11 15:48 | PDOC.CMDIS ---
Date of service: 09/11/22 Time of Service: 15:48 LACE Index Scoring Tool Questions: Length of Stay (in days): 4 - 6 Was the patient admitted via the E.D.?: Yes Comorbidities: Cerebrovascular Disease, Congestive Heart Failure, Chronic Pulmonary Disease and Liver or Renal Disease E.D. Visits: 3 Answers: Total Score: 15 Risk of Readmission: High Risk Care Management Discharge Plan Reason for Hospitalization: fever Discharge Plan: Deb will be discharged home with no new services. She will follow up with community providers and discharge plan of care as prescribed. Her daughter Mimi will drive her home when ready. Patient/Family Education Needs: Review discharge instructions and limitations, activity, discussion of self care needs including ask me three.
--- NOTE | 2022-09-13 09:08 | INDS_ITS ---
Date of service: 09/13/22 PT Notes Visit Reasons: Pneumonia Physical Therapy Inpatient Discharge Summary Date: 09/13/2022 Dates of service: 09/09/2022 through 09/11/2022 This is a clinical summary of care provided for the duration of dates listed above. No charge was made in the completion of this documentation. Referring Doctor: Ella Koenig NP PT Orders: PT CONSULT: Eval/treat Precautions: Fall.? Standard.? Activity as tolerated.? Hard of hearing. Patient Profile/Admitting Diagnosis:? Deb Her is an 82-year-old female with diagnoses of gastroenteritis,? pneumonia,? acute hypoxemic respiratory failure,? COPD exacerbation? and anxiety. PMHX: All Active Problems? 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 Abdominal aortic aneurysm (05/31/12) 4.4 cm 07/20 s/p repair 2012 Acute and chronic respiratory failure with hypoxia Arm skin lesion, left (12/09/15) Atherosclerosis Atherosclerosis Bradycardia Bruit Bruit of left carotid artery mild-mod. 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 02/18-09/19, normal metanephrines, normal dexamethasone suppression. Disorder of adrenal gland Disorder of appendix 12/07/12? s/p appendectomy Disorder of appendix (12/07/12) DVT prophylaxis Electrolyte imbalance (09/15/14) a.? hypokalemia b.? hypomagnesemia Elevated LDH Elevated serum lactate dehydrogenase (LDH) Encounter for monitoring diuretic therapy Essential (primary) hypertension 06/01/13 Hiatus hernia syndrome 12/05/14 [facility] [place]; EGD History of tobacco use 100pack/years History of tobacco use Hyperlipidemia Increased body mass index Ischemic bowel disease 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) Palliative care patient Palpitations 08/26/14; FREQ PVC BY HOLTER Palpitations Pulmonary hypertension Right hip pain Right pontine CVA [facility]-01/30/16; 8X5 mm RUQ abdominal pain Seborrheic keratosis (01/01/16) punch/shave biopsy skin of left arm Seborrheic keratosis (01/01/16) Shortness of breath (10/14/16) SVT (supraventricular tachycardia) (09/15/14) Tachycardia Urinary frequency (08/21/15) Vascular insufficiency of intestine (06/12/15) Weight loss (04/02/14) Weight loss, abnormal (~06/11/21) 30# in last yr Surgical History? Appendectomy Biopsy, Soft Tissue (01/01/16) Punch/shave biospy of skin of left arm, seborrheic keratosisColectomy (09/18/14) DR. GRAJEDAHemicolectomy [facility]; 09/15/14; RIGHTHistory of bilateral ligation of fallopian tubes History of partial colectomy 09/15/14? right hemicolectomy w/ileocolic anastomosisHistory of partial surgical removal of colon (09/15/14) Ligation of fallopian tube S/P AAA repair S/P tubal ligation Status post appendectomy Social History/Home Situation: Lives with daughter in a private home.? Uses a FWW for all mobility ADL performance Equipment Owned/DME: FWW Subjective: NT. See most recent [employer] notes. Objective: General Observation: NT. See most recent [employer] notes. Mental Status: NT. See most recent [employer] notes. Pain: NT. See most recent [employer] notes. Vital Signs: NT. See most recent [employer] notes. ROM: Right Upper Extremity: ? Shoulder Flexion lacks the last 25% of AROM. Shoulder abduction lacks the last 25% of AROM. Elbow flexion WFL. Wrist flexion WFL. Functional opening and closing of hand WFL. Left Upper Extremity:? Shoulder Flexion lacks the last 25% of AROM. Shoulder abduction lacks the last 25% of AROM. Elbow flexion WFL. Wrist flexion WFL. Functional opening and closing of hand WFL. Right Lower Extremity: Hip flexion lacks the last 25% of AROM. Hip abduction lacks the last 25% of AROM. Knee flexion 30 to 90 degrees. Knee extesnion -30 degrees.? Ankle dorsiflexion WFL. Ankle plantarflexion WFL. Left Lower Extremity: Hip flexion lacks the last 25% of AROM. Hip abduction lacks the last 25% of AROM. Knee flexion 30 to 90 degrees. Knee extesnion -30 degrees.? Ankle dorsiflexion WFL. Ankle plantarflexion WFL. Strength: Right Upper Extremity: Shoulder flexors 3-/5. Shoulder abductors 3-/5. Elbow flexors 3-/5. Elbow extensors 3-/5. Client Experience Administrator strong. Left Upper Extremity: Shoulder flexors 3-/5. Shoulder abductors 3-/5. Elbow f lexors 3-/5. Elbow extensors 3-/5. Client Experience Administrator strong. Right Lower Extremity: Hip flexors 3-/5. Hip abductors 3-/5. Knee flexors 3-/5. Knee extensors 3-/5. Ankle dorsiflexors 3-/5. Ankle plantarflexors 4-/5. Left Lower Extremity: Hip flexors 3-/5. Hip abductors 3-/5. Knee flexors 3-/5. Knee extensors 3-/5. Ankle dorsiflexors 3-/5. Ankle plantarflexors 4-/5. ? BED MOBILITY/TRANSFERS ? Sit-stand: CGA with verbal and tactile cues to initiate, as well as remembering to push up from armrests. ? Stand-sit: CGA with verbal cues to reach back for armrests ? GAIT? Assistive Device: FWW? Weight bearing: full Assist: CGA Distance:? 100 feet? Deviation: Patient becomes noticeably short of breath ? STAIRS: Patient ascends and descends 5 six inch stairs with CGA and one handrail, demonstrating step-to gait pattern. ? Balance: Static Sitting: Good Dynamic Sitting: Good Static Standing: Fair Dynamic Standing: Fair Assessment: Low endurance and gets short of breathe easily,? needs frequent rests.? On palliative care,? activity as tolerated only.? Wants to go home with daughter,? refusing SNF placement. Patient presents with clinical signs and symptoms consistent with current/admitting diagnoses that have resulted to mobility limitations, gait instability, generalized weakness, and overall ADL decline as demonstrated by the following impairment level findings: 1.? Decreased strength to B UE/LE major muscle groups 2.? Impaired sitting/standing balance 3.? Impaired activity tolerance 4.? Shortness of breath Impairments are contributing to the following functional limitations: 1.? Decline in bed mobility skills 2.? Decline in transfer skills 3.? Difficulty with ambulation without assistive device and physical assistance 4.? Increased completion time for mobility ADL performance 5.? Increased risk for falls Goals: Goals X1 week 1. Supine-Sit independent NOT MET 2. Sit-Supine independent NOT MET 3. Sit-Stand independent NOT MET 4. Stand-Sit independent with FWW NOT MET 5. Bed-Chair independent with FWW NOT MET 6. Chair-Bed independent with FWW NOT MET 7. Independent gait on level surface with use of FWW for at least 100 feet without report of pain nor dyspnea NOT MET 8. Independent stair negotiation while holding onto B rails for at least 5 steps without report of pain nor dyspnea NOT MET 9. Independent with home exercise program NOT MET 10. Good static and dynamic standing balance/tolerance NOT MET DISCHARGE RECOMMENDATIONS: [] ? Home with no services [] [] ? Home with services [specify] [] ? Home with outpatient PT [] [] ? SNF for continued rehabilitation [] [] ? [facility] [] [] ? SNF versus LTC based on ability to participate and progress [] [X] SNF vs. PT based on patient's progress towards goals TREATMENT CODE/TIME: TX Thank you for the opportunity to participate in the care of this patient. Sayda Yan PT, DPT, CLT [facility], [place]
== END 2022-09-11 12:50 | disposition home or self-care (01) | DRG 193 ==
LOC: ER 09-06 01:36 → MS 09-06 02:18
PROVIDERS: Nurse Practitioner Acute Care; Nurse Practitioner Family; Registered Nurse Emergency; Admitting Provider General Practice; Emergency Provider Student in an Organized Health Care Education/Training Program; PCP Family Medicine; Visit Provider General Practice
DX: J18.9 Pneumonia, unspecified organism (principal); J96.01 Acute respiratory failure with hypoxia; J44.0 Chronic obstructive pulmonary disease with (acute) lower respiratory infection; E87.1 Hypo-osmolality and hyponatremia; F32.3 Major depressive disorder, single episode, severe with psychotic features; I47.1 Supraventricular tachycardia; I50.32 Chronic diastolic (congestive) heart failure; K52.9 Noninfective gastroenteritis and colitis, unspecified; I11.0 Hypertensive heart disease with heart failure; E83.42 Hypomagnesemia; I48.91 Unspecified atrial fibrillation; Z66 Do not resuscitate; Z86.010 Personal history of colon polyps; F41.9 Anxiety disorder, unspecified; I25.10 Atherosclerotic heart disease of native coronary artery without angina pectoris; K75.81 Nonalcoholic steatohepatitis (NASH); Z87.891 Personal history of nicotine dependence; I27.20 Pulmonary hypertension, unspecified; R35.0 Frequency of micturition; Z98.0 Intestinal bypass and anastomosis status; Z90.49 Acquired absence of other specified parts of digestive tract; Z79.01 Long term (current) use of anticoagulants; E66.3 Overweight; Z68.28 Body mass index [BMI] 28.0-28.9, adult
CPT/HCPCS: 36415; 74177; 80048; 80053; 83690; 84145; 85027; 87040; 87449; 87493; 87505; 93005; 94640; 96365; 96367; 96375; 97116; 97161; 97530; 99285; 71260; 80162; 81003; 83605; 83735; 84484; 85025; 87086; 93010; 94664; 94667; 94668; 94760; 99222; 99232; 99233; 99238; J0131; J0456; J0696; J1940; J2405; J3490

== ENCOUNTER 2023-01-08 11:19 | Inpatient (IN) | payer MEDICARE, SELFPAY ==
[2023-01-08] VITALS (46 sets, daily range): BP systolic 97–141; BP diastolic 24–86; PULSE 65–106; RESP 15–26; TEMP 36.4–37.2; O2SAT 90–97
--- NOTE | 2023-01-08 11:15 | RT.EKG_ITS ---
APPROVED REPORT Exam: Resting ECG Reason for Exam: low blood pressure Patient Location: E HR:103 bpm ECG Measurements Heart Rate 103 [place] [id number] P [id number] QRSd 115 QRS 21 QT 360 T [id number] QTc 471 Conclusion Atrial fibrillation Rate 103
--- NOTE | 2023-01-08 11:30 | DI.CT_ITS ---
Exam(s) CT ABDOMEN PELVIS W EXAM: CT ABDOMEN PELVIS W CLINICAL HISTORY: abdominal pain and weakness. TECHNIQUE: Imaging Protocol: Axial computed tomography images with coronal and sagittal reformatted images were created and reviewed CONTRAST MATERIAL: Intravenous: Omnipaque 350 Contrast volume:100 ml Oral: yes / no COMPARISON: CT CT ABDOMEN PELVIS W from 06/04/[address] CHEST/ABD/PEL W from 09/05/2022 FINDINGS: ABDOMEN and PELVIS: Lung Bases: Heart is enlarged. Mitral valve heavily calcified. Calcifications at aortic valve. Sma ll hiatal hernia. Stable appearance of right lower lobe mass/scarring. Dependent changes on the lef t. Liver: Normal density. No measurable mass. Mildly heterogeneous attenuation consistent with phase of contrast administration. The headache veins are not yet opacified. Gallbladder and biliary tract: Cholelithiasis. Similar appearance of tubular structure at the fundus of the gallbladder which could represent a Phrygian cap. No abnormal gallbladder distention. No bi liary dilatation. Pancreas: Normal density. No abnormal calcifications or inflammatory process. No evidence of mass. Spleen: Normal. Kidneys: Normal size, contour and axis. No radiodense stones. No obstructive uropathy. No suspicious masses seen. Adrenal glands: Stable bilateral renal nodules. No follow-up recommended. Vasculature: Aorta maximally measures 4.4 cm, similar to prior. Atherosclerotic changes. Stent in a madeleine and left proximal iliac artery for aneurysm repair. Celiac artery and superior mesenteric arter y stents. Right common iliac arteries again noted to be occluded. Soft tissues: Unremarkable. Bladder: Bladder wall diverticula. Circumferential thickening. No calculi.No focal mass. Bowel: No obstruction. No bowel wall thickening. Moderate quantity of stool descending and sigmoid colon. Peritoneal cavity: No ascites. No focal collection or mesenteric inflammatory response. Bones: Degenerative changes. Minimal anterior wedging lower thoracic vertebral bodies, not changed f rom prior. Reproductive organs: Small uterine fibroids. Lymph nodes: Unremarkable. IMPRESSION:: Bladder wall thickening and multiple diverticula. Consider cystitis. No evidence of hydronephrosis. Cholelithiasis. No evidence of acute cholecystitis. RADIATION DOSE DELIVERED: Total DLP DATA REPOSITORY: All CT scans at this facility are submitted to the National Radiology Data Registry (NRDR) Dose Index Registry (DIR) with the [employer] (A[employer]). RADIATION OPTIMIZATION: All CT scans at this facility use at least one of these dose optimization te chniques: automated exposure control; mA and/or kV adjustment per patient size (includes targeted exa ms where dose is matched to clinical indication); or iterative reconstruction.
--- NOTE | 2023-01-08 11:45 | DI.RAD_ITS ---
Exam(s) XR CHEST 2V PA LATERAL EXAM: XR CHEST 2V PA LATERAL CLINICAL HISTORY: weakness TECHNIQUE: 2D digital imaging was performed. COMPARISON: CR,XR XR PORTABLE CHEST AP POST LINE from 06/05/[address] CHEST/ABD/PEL W from 09/05/[address] ABDOMEN PELVIS W from 01/08/2023 FINDINGS: Exam limited by poor inflation on the lateral view. HEART: Enlarged. Aorta: Calcified and ectatic. PULMONARY VASCULATURE: Normal. LUNGS: Chronic interstitial markings. No gross area of consolidation. No gross evidence of pulmonar y edema. PLEURAL SPACE: No pleural effusion or pneumothorax. BONE:Unremarkable for age. IMPRESSION: No acute abnormality. DATA REPOSITORY: RADIATION DOSE DELIVERED:
[2023-01-08] MEDS: Lactated Ringers 500 ML IV (12:11)
[2023-01-08 12:17] LABS: Abs Immature Grans 0.03 10^3/uL (0.0-0.06); Absolute Basophil Count 0.03 10^3/uL (0.0-0.2); Absolute Eosinophil Count 0.04 10^3/uL (0.0-0.7); Absolute Lymphocyte Count 1.01 10^3/uL (1.2-3.4); Absolute Monocyte Count 0.62 10^3/uL (0.1-0.8); Absolute Neutrophil Count 6.74 10^3/uL (1.2-6.7); Basophils % 0.4; Eosinophils % 0.5; HCT 42.6 % (36.0-46.0); HGB 13.7 g/dL (11.2-15.7); Immature Grans % 0.4; Lymphocytes % 11.9; MCH 28.8 pg (27.0-33.0); MCHC 32.2 % (32.0-36.0); MCV 90 fL (80-95); MPV 10.1 fL (8.0-11.0); Monocytes % 7.3; Neutrophils % 79.5; Platelet Count 175 10^3/uL (130-400); RBC 4.76 10^6/uL (3.93-5.22); RDW 14.2 % (11.7-14.6); RDW-SD 46.9 fL; WBC 8.47 10^3/uL (4.4-10.8)
[2023-01-08] MEDS: LORazepam 0.5 MG TAB PO ×2 (12:32→20:44)
[2023-01-08 12:35] LABS: Bilirubin Negative (Negative); Blood Small (Negative); Clarity Turbid (Clear); Glucose Negative (Negative); Ketones Negative (Negative); Leukocyte Esterase Large (Negative); Nitrite Negative (Negative); Specific Gravity 1.015 (1.005-1.025); Urobilinogen 0.2 mg/dL (Up to 0.2)
[2023-01-08] MEDS: risperiDONE 0.5 MG TAB PO (12:36)
[2023-01-08 12:39] LABS: ALT 18 U/L (14-59); AST 13 U/L (15-37); Albumin 3.4 g/dL (3.4-5.0); Alkaline Phosphatase 67 U/L (46-116); Anion Gap 7.5 mmol/L (3-11); BUN 15 mg/dL (7-18); Bilirubin, Total 0.9 mg/dL (0.2-1.0); CO2 30.5 mmol/L (21.0-32.0); Calcium 9.2 mg/dL (8.5-10.1); Chloride 98 mmol/L (98-107); Digoxin 0.31 ng/mL (0.90-2.00); Glucose 124 mg/dL (74-106); Magnesium 1.8 mg/dL (1.8-2.4); Potassium 3.5 mmol/L (3.5-5.1); Sodium 136 mmol/L (136-145); Total Protein 6.5 g/dL (6.4-8.2)
[2023-01-08 12:41] LABS: Source Nasal/Nares
[2023-01-08 12:46] LABS: C & S Indicated? Yes; WBC >50 HPF (0-5)
[2023-01-08 12:48] LABS: Procalcitonin < 0.1 ng/mL
--- NOTE | 2023-01-08 13:06 | ED.GENADUL_ITS ---
Discharge Plan Disposition Patient Disposition: Admit to [facility] Condition: Serious Discharge Details Clinical Impression: Urinary tract infection, Chronic heart failure with preserved ejection fraction (HFpEF), Atrial fibrillation, Acute hypoxemic respiratory failure, COPD (chronic obstructive pulmonary disease) Admit Date/Time: 01/08/23 15:32 Admit Provider: Sekou Guerrero Attending Provider: Sekou Guerrero Primary Care Provider: Carolin Salinas ED Provider: Crystal Walls Discharge Data Discharge Date/Time-TO BE ENTERED AT DEPARTURE: 01/08/23 22:19 Medical Decision Making 82-year-old female presenting with weakness for the past 3 to 4 days, urinary frequency, and some mild intermittent confusion Alert and oriented x3 on assessment, able to follow basic commands Suprapubic and left lower quadrant tenderness, no rebound or guarding, no CVA tenderness, lungs clear to auscultation bilaterally, no rashes or lesions, pupils equal round reactive to light and accommodation, cranial nerves II through XII intact, no visible sign of head trauma, uvula midline, oropharynx patent No visible sign of trauma Urinalysis positive for urinary tract infection, CT was ordered for further evaluation Lactate 2, no leukocytosis, atrial fibrillation on EKG, rate controlled Blood pressure stable, soft diastolic Markedly weak, will need admission for IV antibiotics and observation CTA with renal fullness, no evidence of stone, bladder wall thickening likely consistent with cystitis, remains hemodynamically stable in the emergency department Chest x-ray with possible infiltrate versus nodule, seen previously on x-ray, in the absence of respiratory symptoms, will not initiate treatment for pneumonia at this time Of note, after 500 cc bolus, patient has oxygenation ranging from 92 to 87%, she does not endorse any shortness of breath and sounds like her oxygen tends to run on the low side, 90-92 per daughter, facemask oxygenation was placed to patient around 91 to 92% Patient met sepsis criteria with urinary tract infection, tachycardia, and leukocytosis Case discussed with Dr. Hoang admit patient to his service DNR/DNI status HPI General Date/Time Provider Initiated Documentation: 01/08/23 11:27 . HPI Narrative: This 82-year-old female with history of CHF, atrial fibrillation, COPD, hypertension, chronic and anticoagulation presents with reports of weakness for the past 3 days. Reports abdominal pain. Denies any fever or chills. Had a fall this morning secondary to weakness, slid down and landed on her bottom, denies any head injury. Event was witnessed. Related Data Home Medications Medication Instructions Recorded Confirmed acetaminophen 325 mg tablet 650 mg PO Q8H PRN PRN 08/10/14 01/08/23 (Tylenol) Lactobacillus acidophilus 1 1 ea PO BID 03/11/15 01/08/23 billion cell tablet digoxin 125 mcg (0.125 mg) tablet 125 mcg PO DAILY #90 tabs 04/19/22 01/08/23 fluticasone 500 mcg-salmeterol 50 1 inh inhalation BID 06/04/22 01/08/23 mcg/dose blistr powdr for inhalation (Advair Diskus) magnesium oxide 400 mg (241.3 mg 400 mg PO DAILY #90 tabs 06/29/22 01/08/23 magnesium) tablet risperidone 2 mg tablet (Risperdal) 2 mg PO HS #90 tabs 06/29/22 01/08/23 sertraline 50 mg tablet 50 mg PO DAILY #90 tabs 06/29/22 01/08/23 trazodone 100 mg tablet 100 mg PO HS #90 tabs 06/29/22 01/08/23 Ensure High Protein (food 237 ml PO BID low albumin; 06/30/22 01/08/23 supplemt, lactose-reduced) malnutrition #14,220 mL protein (Ensure High Protein oral 1 pwd PO DAILY low albumin, 08/12/22 01/08/23 powder) hypotension, calorie malnutrition #480 grams risperidone 0.5 mg tablet 0.5 mg PO BID 08/12/22 01/08/23 (Risperdal) potassium chloride 20 mEq 20 meq PO BID #180 tabs 12/27/22 01/08/23 tablet,extended release(part/cryst) (Klor-Con M) apixaban 5 mg tablet (Eliquis) 5 mg PO BID #180 tabs 01/03/23 01/08/23 lorazepam 0.5 mg tablet 0.5 mg PO TID PRN anxiety #270 tabs 01/03/23 01/08/23 albuterol sulfate 90 mcg/actuation 2 puff inhalation Q4H PRN 01/08/23 01/08/23 aerosol inhaler Previous Rx's Medication Instructions Recorded digoxin 125 mcg (0.125 mg) tablet 125 mcg PO DAILY #90 tabs 04/19/22 magnesium oxide 400 mg (241.3 mg 400 mg PO DAILY #90 tabs 06/29/22 magnesium) tablet risperidone 2 mg tablet (Risperdal) 2 mg PO HS #90 tabs 06/29/22 sertraline 50 mg tablet 50 mg PO DAILY #90 tabs 06/29/22 trazodone 100 mg tablet 100 mg PO HS #90 tabs 06/29/22 Ensure High Protein (food 237 ml PO BID low albumin; 06/30/22 supplemt, lactose-reduced) malnutrition #14,220 mL protein (Ensure High Protein oral 1 pwd PO DAILY low albumin, 08/12/22 powder) hypotension, calorie malnutrition #480 grams potassium chloride 20 mEq 20 meq PO BID #180 tabs 12/27/22 tablet,extended release(part/cryst) (Klor-Con M) apixaban 5 mg tablet (Eliquis) 5 mg PO BID #180 tabs 01/03/23 lorazepam 0.5 mg tablet 0.5 mg PO TID PRN anxiety #270 tabs 01/03/23 Allergies Allergy/AdvReac Type Severity Reaction Status Date / Time pneumococcal 7-valent Allergy Mild Local Verified 01/08/23 15:09 conjugate to reaction [From Prevnar] amoxicillin trihydrate AdvReac Intermediate VOMITING Verified 01/08/23 15:09 [From Augmentin] potassium clavulanate AdvReac Intermediate VOMITING Verified 01/08/23 15:09 [From Augmentin] General Stated Complaint: [facility]Medical DEONNA: 3 PFSH All Active Problems (Updated 01/09/23 @ 15:41 by CHIKA Reed) Discharge planning issues (Acute) DVT prophylaxis (Acute) Urinary tract infection (Acute) Depression (Chronic) a. 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 plaque per [place] onychomycosis Cognitive change Complete edentulism, unspecified Congestive heart failure Conjunctivitis COPD (chronic obstructive pulmonary disease) with emphysema CVD (cardiovascular disease) Dependence on supplemental oxygen Depression a. with psychotic features Diarrhea (11/19/14) 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 02/18-09/19, normal metanephrines, normal dexamethasone suppression. 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 hypokalemia b. hypomagnesemia Elevated LDH Elevated serum lactate dehydrogenase (LDH) Encounter for monitoring diuretic therapy Essential (primary) hypertension 06/01/13 Hiatus hernia syndrome 12/05/14 [facility] [place]; EGD History of tobacco use 100pack/years History of tobacco use Hyperlipidemia Increased body mass index Ischemic bowel disease 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) Palliative care patient Palpitations 08/26/14; FREQ [facility] Palpitations Pulmonary hypertension Right hip pain Right pontine CVA [facility]-01/30/16; 8X5 mm RUQ abdominal pain Seborrheic keratosis (01/01/16) punch/shave biopsy skin of left arm Seborrheic keratosis (01/01/16) Shortness of breath (10/14/16) SVT (supraventricular tachycardia) (09/15/14) Tachycardia Urinary frequency (08/21/15) Vascular insufficiency of intestine (06/12/15) Weight loss (04/02/14) Weight loss, abnormal (~06/11/21) 30# in last yr Surgical History Appendectomy Biopsy, Soft Tissue (01/01/16) Punch/shave biospy of skin of left arm, seborrheic keratosis Colectomy (09/18/14) DR. GRAJEDA Hemicolectomy [facility]; 09/15/14; RIGHT History of bilateral ligation of fallopian tubes History of partial colectomy 09/15/14 right hemicolectomy w/ileocolic anastomosis History of partial surgical removal of colon (09/15/14) Ligation of fallopian tube S/P AAA repair S/P tubal ligation Status post appendectomy Family History Mother Essential hypertension Alzheimer's disease Father Heart disease Breast cancer Prostate cancer Sister Myocardial infarction Sister Myocardial infarction Brother Cancer Sister No problems noted. Sister No problems noted. Brother Substance abuse Brother Substance abuse Brother Substance abuse Cancer Son No problems noted. Daughter No problems noted. Social History Smoking/Tobacco Use Status: Former Tobacco Use Quit Date: 03/14/12 Tobacco: How many years used: 50 Smoking risk assessment performed?: Yes Alcohol Intake: never Drug use: Never Substance use type: does not use Household members: other Details: 4 Housing: house Pets and animals: Yes Pets and animals: cat(s) and dog(s) Current gender identity: decline to answer What is your relationship status?: refused to answer How often do you talk on the phone with friends or family?: decline to answer How often do you get together with friends or relatives?: decline to answer How often do you attend confucianist or sabianist services?: decline to answer Do you belong to any clubs or organized social groups?: decline to answer Panel score (0-1 are the most socially isolated patients): 0 What type of physical activity do you participate in: none Lelo/Gnosticism: No preference Special lelo needs: No Do you feel safe at home: Yes Do you feel safe in your relationship?: Yes Course Vital Signs Vital signs: Vital Signs Temperature 36.4 C 01/08/23 11:25 Pulse 106 H 01/08/23 11:25 Respiratory Rate 24 01/08/23 11:25 Blood Pressure 128/68 01/08/23 11:25 Pulse Oximetry 94 01/08/23 11:25 Temperature 36.5 C 01/08/23 12:32 Temperature Source Oral 01/08/23 12:05 Pulse 95 H 01/08/23 12:05 Pulse 94 H 01/08/23 11:50 Respiratory Rate 16 01/08/23 12:08 Respiratory Effort Normal 01/08/23 12:08 Respiratory Depth Normal 01/08/23 12:08 Respiratory Pattern Normal 01/08/23 12:08 Blood Pressure 112/47 L 01/08/23 12:05 Blood Pressure Mean 63 01/08/23 11:37 Blood Pressure Position Supine 01/08/23 12:05 Pulse Oximetry 92 01/08/23 12:05 Oxygen Delivery Method Room Air 01/08/23 12:05 Oxygen Flow Rate 0 01/08/23 12:01 Pain Level 0 01/08/23 12:32 Lab/Test Results Lab/Test Results: 01/08/23 12:30 Urine - Reflex from Ua Urine Culture - Pending 01/08/23 12:35 Blood Blood Culture - Pending 01/08/23 12:05 Blood Blood Culture - Pending Laboratory Tests Range/Units 01/08/23 01/08/23 01/08/23 12:05 12:05 12:30 WBC (4.4-10.8) 10^3/uL 8.47 RBC (3.93-5.22) 10^6/uL 4.76 Hgb (11.2-15.7) g/dL 13.7 Hct (36.0-46.0) % 42.6 MCV (80-95) fL 90 MCH (27.0-33.0) pg 28.8 MCHC (32.0-36.0) % 32.2 RDW (11.7-14.6) % 14.2 Plt Count (130-400) 10^3/uL 175 MPV (8.0-11.0) fL 10.1 Immature Gran % 0.4 Neutrophils % 79.5 Lymphocytes % 11.9 Monocytes % 7.3 Eosinophils % 0.5 Basophils % 0.4 Nucleated RBC % (0.0-0.3) % 0.0 Absolute Neutrophils (1.2-6.7) 10^3/uL 6.74 H Absolute Lymphocytes (1.2-3.4) 10^3/uL 1.01 L Absolute Monocytes (0.1-0.8) 10^3/uL 0.62 Absolute Eosinophils (0.0-0.7) 10^3/uL 0.04 Absolute Basophils (0.0-0.2) 10^3/uL 0.03 VBG Lactate (0.6-1.4) mmol/L 2.0 H Sodium (136-145) mmol/L 136 Potassium (3.5-5.1) mmol/L 3.5 Chloride (98-107) mmol/L 98 Carbon Dioxide (21.0-32.0) mmol/L 30.5 Anion Gap (3-11) mmol/L 7.5 BUN (7-18) mg/dL 15 Creatinine (0.55-1.02) mg/dL 1.0 Est GFR (CKD-EPI 2020) (mL/min/1.73m2) 55.90 Glucose (74-106) mg/dL 124 H Calcium (8.5-10.1) mg/dL 9.2 Magnesium (1.8-2.4) mg/dL 1.8 Cancelled Total Bilirubin (0.2-1.0) mg/dL 0.9 AST (15-37) U/L 13 L ALT (14-59) U/L 18 Alkaline Phosphatase (46-116) U/L 67 Total Protein (6.4-8.2) g/dL 6.5 Albumin (3.4-5.0) g/dL 3.4 Procalcitonin ng/mL < 0.1 Urine Color (Yellow) Yellow Urine Clarity (Clear) Turbid Urine pH (5-8) 7.0 Ur Specific [place] (1.005-1.025) 1.015 Urine Protein (Negative) mg/dL Negative Urine Ketones (Negative) mg/dL Negative Urine Blood (Negative) Small H Urine Nitrite (Negative) Negative Urine Bilirubin (Negative) Negative Urine Urobilinogen (Up to 0.2) mg/dL 0.2 Ur Leukocyte Esterase (Negative) Large H Urine RBC Not Applicable Urine WBC (0-5) HPF >50 H Ur Epithelial Cells Not Applicable Urine Crystals Not Applicable Urine Bacteria Not Applicable Urine Mucus Not Applicable Ur Culture Indicated? Yes Urine Glucose (Negative) mg/dL Negative Digoxin (0.90-2.00) ng/mL 0.31 L COVID-19 Source Range/Units 01/08/23 12:33 WBC (4.4-10.8) 10^3/uL RBC (3.93-5.22) 10^6/uL Hgb (11.2-15.7) g/dL Hct (36.0-46.0) % MCV (80-95) fL MCH (27.0-33.0) pg MCHC (32.0-36.0) % RDW (11.7-14.6) % Plt Count (130-400) 10^3/uL MPV (8.0-11.0) fL Immature Gran % Neutrophils % Lymphocytes % Monocytes % Eosinophils % Basophils % Nucleated RBC % (0.0-0.3) % Absolute Neutrophils (1.2-6.7) 10^3/uL Absolute Lymphocytes (1.2-3.4) 10^3/uL Absolute Monocytes (0.1-0.8) 10^3/uL Absolute Eosinophils (0.0-0.7) 10^3/uL Absolute Basophils (0.0-0.2) 10^3/uL VBG Lactate (0.6-1.4) mmol/L Sodium (136-145) mmol/L Potassium (3.5-5.1) mmol/L Chloride (98-107) mmol/L Carbon Dioxide (21.0-32.0) mmol/L Anion Gap (3-11) mmol/L BUN (7-18) mg/dL Creatinine (0.55-1.02) mg/dL Est GFR (CKD-EPI 2020) (mL/min/1.73m2) Glucose (74-106) mg/dL Calcium (8.5-10.1) mg/dL Magnesium (1.8-2.4) mg/dL Total Bilirubin (0.2-1.0) mg/dL AST (15-37) U/L ALT (14-59) U/L Alkaline Phosphatase (46-116) U/L Total Protein (6.4-8.2) g/dL Albumin (3.4-5.0) g/dL Procalcitonin ng/mL Urine Color (Yellow) Urine Clarity (Clear) Urine pH (5-8) Ur Specific [place] (1.005-1.025) Urine Protein (Negative) mg/dL Urine Ketones (Negative) mg/dL Urine Blood (Negative) Urine Nitrite (Negative) Urine Bilirubin (Negative) Urine Urobilinogen (Up to 0.2) mg/dL Ur Leukocyte Esterase (Negative) Urine RBC Urine WBC (0-5) HPF Ur Epithelial Cells Urine Crystals Urine Bacteria Urine Mucus Ur Culture Indicated? Urine Glucose (Negative) mg/dL Digoxin (0.90-2.00) ng/mL COVID-19 Source Nasal/Nares
[2023-01-08 13:12] LABS: COVID-19 PCR Negative (Negative)
[2023-01-08] MEDS: cefTRIAXone 2 GM/50 ML BAG IVPB (13:25)
[2023-01-08] MEDS: Normal Saline - Diluent 50 ML VIAL IJ (13:50)
--- NOTE | 2023-01-08 14:58 | DI.VRAD_ITS ---
PROCEDURE INFORMATION: Exam: CT Abdomen And Pelvis With Contrast Exam date and time: 01/08/2023 1:53 PM Age: 82 years old Clinical indication: Abdominal pain TECHNIQUE: Imaging protocol: Computed tomography of the abdomen and pelvis with contrast. COMPARISON: 1. CT CHEST/ABD/PEL W 09/05/2022 10:[address] CHEST/ABD/PEL W 05/18/2022 11:47 AM FINDINGS: Lungs: Redemonstrated irregular nodular density in the right lung base, similar to prior Heart: The partially imaged left atrium appears enlarged. Dense mitral annular calcification. Liver: Heterogeneous attenuation of the liver. Gallbladder and bile ducts: Cholelithiasis. Along the anterior margin of the gallbladder is a centrally hypoechoic thickened tubular structure, similar to multiple priors and possibly a contracted portion of the gallbladder. Pancreas: Normal. No ductal dilation. Spleen: Normal. No splenomegaly. Adrenal glands: Stable size of bilateral adrenal nodules measuring up to 3.5 cm. Kidneys and ureters: Mild prominence of the bilateral collecting systems and ureters. No mass. Stomach and bowel: Small hiatal hernia, otherwise unremarkable stomach. Normal caliber small bowel. Moderate distal colonic and rectal stool burden. Appendix: No evidence of appendicitis. Intraperitoneal space: Unremarkable. No free air. No significant fluid collection. Vasculature: Aorto left iliac stent. Infrarenal abdominal aortic aneurysm measuring 4.4 x 4 cm, similar to prior. Celiac artery and SMA stents. Chronic occlusion of the right common iliac artery. Lymph nodes: Unremarkable. No enlarged lymph nodes. Urinary bladder: Moderate circumferential bladder wall thickening. Bladder diverticula. Reproductive: Uterine fibroids. No adnexal mass. Bones/joints: Anterior wedging of the lower thoracic vertebral bodies, similar to prior. Degenerative changes of the spine. Soft tissues: Unremarkable. IMPRESSION: 1. Moderate bladder wall thickening with bladder diverticula which may reflect chronic outlet obstruction or cystitis. Consider correlation with urinalysis. 2. Mild prominence of the collecting systems and ureters which may be physiologic versus hydroureteronephrosis. 3. Heterogeneous liver, nonspecific. Consider correlation with LFTs. 4. Moderate distal colonic and rectal stool burden. Dictated and Authenticated by: Poncho Gonzalez MD. Ordering:DAV Rojas MD
--- NOTE | 2023-01-08 15:01 | DI.VRAD_ITS ---
PROCEDURE INFORMATION: Exam: XR Chest Exam date and time: 01/08/2023 2:01 PM Age: 82 years old Clinical indication: Other: [place] TECHNIQUE: Imaging protocol: Radiologic exam of the chest. Views: 2 views. COMPARISON: 1. CT ABDOMEN PELVIS W 01/08/2023 1:[address] CHEST/ABD/PEL W 09/05/2022 10:39 PM FINDINGS: Lungs: Patchy right lower lobe airspace opacity. Pleural spaces: Unremarkable. No pleural effusion. No pneumothorax. Heart/Mediastinum: Cardiomegaly. Vasculature: Partially imaged abdominal aortic stent. Bones/joints: Degenerative osseous changes. IMPRESSION: Patchy right lower lobe airspace opacity, likely corresponding to irregular nodular density on same day CT of the abdomen and pelvis as well as prior chest CT. No new findings. Recommend continued follow-up as clinically warranted. Dictated and Authenticated by: Poncho Gonzalez MD. Ordering:DAV Rojas MD
--- NOTE | 2023-01-08 18:10 | W.PM.HP.N ---
Date of service: 01/08/23 Time of Service: 18:10 Assessment and Plan Assessment and plan (1) Urinary tract infection: Status: Acute Assessment and plan: Weakness and urinary sx x 3-4 d Urine positive - started on abx in ED; will continue Ceftriaxone 2 gm daily Urine & blood cx pending Acetaminophen prn (2) Chronic heart failure with preserved ejection fraction (HFpEF): Status: Acute Assessment and plan: Continue home meds Monitor for fluid status (3) Atrial fibrillation: Status: Chronic Assessment and plan: Continue home meds Qualifiers: Atrial fibrillation type: unspecified Qualified Code(s): I48.91 - Unspecified atrial fibrillation (4) COPD (chronic obstructive pulmonary disease): Status: Chronic Assessment and plan: Continue home meds (5) Hypertension: Status: Chronic Assessment and plan: Continue home meds Monitor BP Qualifiers: Hypertension type: essential hypertension Qualified Code(s): I10 - Essential (primary) hypertension (6) DVT prophylaxis: Status: Acute Assessment and plan: On Apixaban (7) Discharge planning issues: Status: Acute Assessment and plan: Home when medically stable History of Present Illness History of Present Illness Chief Complaint: Weakness Narrative: This is an 82 year old female with past medical history of CHF, atrial fibrillation, on Apixaban, COPD, hypertension, who presented to the [facility] ED for evaluation of weakness and urinary frequency, and some mild intermittent confusion for the past 3 days. Patient also reported abdominal pain. Denied any fever or chills. Patient also had a witnessed fall this morning secondary to weakness, slid down and landed on her bottom, denied any head injury. In the ED patient was alert and oriented x3 on assessment, able to follow basic commands, no visible sign of trauma. Urinalysis positive for urinary tract infection, CT no hydronephrosis, no stones. Lactate 2, no leukocytosis, atrial fibrillation on EKG, rate controlled. Blood pressure stable. Patient is admitted to the medical floor for further testing, antibiotics and other treatment. Patient is DNR/DNI. Review of Systems All systems reviewed & are unremarkable except as noted in HPI and below PFSH All Active Problems (Updated 01/08/23 @ 18:27 by Mimi Dowd NP) Discharge planning issues (Acute) DVT prophylaxis (Acute) Urinary tract infection (Acute) Depression (Chronic) a. 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 plaque per U/S Aminah onychomycosis Cognitive change Complete edentulism, unspecified Congestive heart failure Conjunctivitis COPD (chronic obstructive pulmonary disease) with emphysema CVD (cardiovascular disease) Dependence on supplemental oxygen Depression a. with psychotic features Diarrhea (11/19/14) 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 02/18-09/19, normal metanephrines, normal dexamethasone suppression. 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 hypokalemia b. hypomagnesemia Elevated LDH Elevated serum lactate dehydrogenase (LDH) Encounter for monitoring diuretic therapy Essential (primary) hypertension 06/01/13 Hiatus hernia syndrome 12/05/14 [facility] [place]; EGD History of tobacco use 100pack/years History of tobacco use Hyperlipidemia Increased body mass index Ischemic bowel disease 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) Palliative care patient Palpitations 08/26/14; FREQ PVC BY [facility]TER Palpitations Pulmonary hypertension Right hip pain Right pontine CVA [facility]-01/30/16; 8X5 mm RUQ abdominal pain Seborrheic keratosis (01/01/16) punch/shave biopsy skin of left arm Seborrheic keratosis (01/01/16) Shortness of breath (10/14/16) SVT (supraventricular tachycardia) (09/15/14) Tachycardia Urinary frequency (08/21/15) Vascular insufficiency of intestine (06/12/15) Weight loss (04/02/14) Weight loss, abnormal (~06/11/21) 30# in last yr Surgical History Appendectomy Biopsy, Soft Tissue (01/01/16) Punch/shave biospy of skin of left arm, seborrheic keratosis Colectomy (09/18/14) DR. GRAJEDA Hemicolectomy [place]; 09/15/14; RIGHT History of bilateral ligation of fallopian tubes History of partial colectomy 09/15/14 right hemicolectomy w/ileocolic anastomosis History of partial surgical removal of colon (09/15/14) Ligation of fallopian tube S/P AAA repair S/P tubal ligation Status post appendectomy Family History Mother Essential hypertension Alzheimer's disease Father Heart disease Breast cancer Prostate cancer Sister Myocardial infarction Sister Myocardial infarction Brother Cancer Sister No problems noted. Sister No problems noted. Brother Substance abuse Brother Substance abuse Brother Substance abuse Cancer Son No problems noted. Daughter No problems noted. Social History Smoking/Tobacco Use Status: Former Tobacco Use Quit Date: 03/14/12 Tobacco: How many years used: 50 Smoking risk assessment performed?: Yes Alcohol Intake: never Drug use: Never Substance use type: does not use Household members: other Details: 4 Housing: house Pets and animals: Yes Pets and animals: cat(s) and dog(s) Current gender identity: decline to answer What is your relationship status?: refused to answer How often do you talk on the phone with friends or family?: decline to answer How often do you get together with friends or relatives?: decline to answer How often do you attend hindu or episcopal services?: decline to answer Do you belong to any clubs or organized social groups?: decline to answer Panel score (0-1 are the most socially isolated patients): 0 What type of physical activity do you participate in: none Lelo/Pentecostalism: No preference Special lelo needs: No Do you feel safe at home: Yes Do you feel safe in your relationship?: Yes Meds Allergies and Home Medications Allergies Allergy/AdvReac Type Severity Reaction Status Date / Time pneumococcal 7-valent Allergy Mild Local Verified 01/08/23 15:09 conjugate to reaction [From Prevnar] amoxicillin trihydrate AdvReac Intermediate VOMITING Verified 01/08/23 15:09 [From Augmentin] potassium clavulanate AdvReac Intermediate VOMITING Verified 01/08/23 15:09 [From Augmentin] Home Medications Medication Instructions Recorded Confirmed Type acetaminophen 325 mg tablet 650 mg PO Q8H PRN PRN 08/10/14 01/08/23 History (Tylenol) Lactobacillus acidophilus 1 1 ea PO BID 03/11/15 01/08/23 History billion cell tablet digoxin 125 mcg (0.125 mg) tablet 125 mcg PO DAILY #90 tabs 04/19/22 01/08/23 Rx fluticasone 500 mcg-salmeterol 50 1 inh inhalation BID 06/04/22 01/08/23 History mcg/dose blistr powdr for inhalation (Advair Diskus) magnesium oxide 400 mg (241.3 mg 400 mg PO DAILY #90 tabs 06/29/22 01/08/23 Rx magnesium) tablet risperidone 2 mg tablet (Risperdal) 2 mg PO HS #90 tabs 06/29/22 01/08/23 Rx sertraline 50 mg tablet 50 mg PO DAILY #90 tabs 06/29/22 01/08/23 Rx trazodone 100 mg tablet 100 mg PO HS #90 tabs 06/29/22 01/08/23 Rx Ensure High Protein (food 237 ml PO BID low albumin; 06/30/22 01/08/23 Rx supplemt, lactose-reduced) malnutrition #14,220 mL protein (Ensure High Protein oral 1 pwd PO DAILY low albumin, 08/12/22 01/08/23 Rx powder) hypotension, calorie malnutrition #480 grams risperidone 0.5 mg tablet 0.5 mg PO BID 08/12/22 01/08/23 History (Risperdal) potassium chloride 20 mEq 20 meq PO BID #180 tabs 12/27/22 01/08/23 Rx tablet,extended release(part/cryst) (Klor-Con M) apixaban 5 mg tablet (Eliquis) 5 mg PO BID #180 tabs 01/03/23 01/08/23 Rx lorazepam 0.5 mg tablet 0.5 mg PO TID PRN anxiety #270 tabs 01/03/23 01/08/23 Rx albuterol sulfate 90 mcg/actuation 2 puff inhalation Q4H PRN 01/08/23 01/08/23 History aerosol inhaler Results Labs 01/08/23 12:05 01/08/23 12:05 Labs: Laboratory Results - last 24 hr 01/08/23 01/08/23 01/08/23 12:05 12:05 12:30 WBC 8.47 RBC 4.76 Hgb 13.7 Hct 42.6 MCV 90 MCH 28.8 MCHC 32.2 RDW 14.2 Plt Count 175 MPV 10.1 Immature Gran % 0.4 Neutrophils % 79.5 Lymphocytes % 11.9 Monocytes % 7.3 Eosinophils % 0.5 Basophils % 0.4 Nucleated RBC % 0.0 Absolute Neutrophils 6.74 H Absolute Lymphocytes 1.01 L Absolute Monocytes 0.62 Absolute Eosinophils 0.04 Absolute Basophils 0.03 VBG Lactate 2.0 H Sodium 136 Potassium 3.5 Chloride 98 Carbon Dioxide 30.5 Anion Gap 7.5 BUN 15 Creatinine 1.0 Est GFR (CKD-EPI 2020) 55.90 Glucose 124 H Calcium 9.2 Magnesium 1.8 Cancelled Total Bilirubin 0.9 AST 13 L ALT 18 Alkaline Phosphatase 67 Total Protein 6.5 Albumin 3.4 Procalcitonin < 0.1 Urine Color Yellow Urine Clarity Turbid Urine pH 7.0 Ur Specific [place] 1.015 Urine Protein Negative Urine Ketones Negative Urine Blood Small H Urine Nitrite Negative Urine Bilirubin Negative Urine Urobilinogen 0.2 Ur Leukocyte Esterase Large H Urine RBC Not Applicable Urine WBC >50 H Ur Epithelial Cells Not Applicable Urine Crystals Not Applicable Urine Bacteria Not Applicable Urine Mucus Not Applicable Ur Culture Indicated? Yes Urine Glucose Negative Digoxin 0.31 L COVID-19 Source SARS-CoV-2 (PCR) 01/08/23 12:33 WBC RBC Hgb Hct MCV MCH MCHC RDW Plt Count MPV Immature Gran % Neutrophils % Lymphocytes % Monocytes % Eosinophils % Basophils % Nucleated RBC % Absolute Neutrophils Absolute Lymphocytes Absolute Monocytes Absolute Eosinophils Absolute Basophils VBG Lactate Sodium Potassium Chloride Carbon Dioxide Anion Gap BUN Creatinine Est GFR (CKD-EPI 2020) Glucose Calcium Magnesium Total Bilirubin AST ALT Alkaline Phosphatase Total Protein Albumin Procalcitonin Urine Color Urine Clarity Urine pH Ur Specific [place] Urine Protein Urine Ketones Urine Blood Urine Nitrite Urine Bilirubin Urine Urobilinogen Ur Leukocyte Esterase Urine RBC Urine WBC Ur Epithelial Cells Urine Crystals Urine Bacteria Urine Mucus Ur Culture Indicated? Urine Glucose Digoxin COVID-19 Source Nasal/Nares SARS-CoV-2 (PCR) Negative Last Vital Signs Temp 36.7 C 01/08/23 17:58 Pulse 90 01/08/23 17:58 Resp 16 01/08/23 17:58 BP 134/54 L 01/08/23 17:58 Pulse Ox 94 01/08/23 17:58 Time Spent Time spent with Patient: 40-54 minutes Time was spent: preparing to see the patient(eg.review tests), obtaining and/or reviewing separately otained hiistory, ordering medications,tests, procedures, referring, communicating with other health progressive care unit registered nurse, indepentently interpreting results, counseling the patient and care coordination
[2023-01-08 20:05] LABS: C Diff PCR Negative (Negative)
[2023-01-08] MEDS: Apixaban 5 MG TAB PO (20:44)
[2023-01-08] MEDS: Potassium Chloride 20 MEQ TABCR PO (20:44)
[2023-01-08] MEDS: risperiDONE 1 MG TAB 2 MG PO (21:07)
[2023-01-08] MEDS: Normal Saline Flush 10 ML SYR IVP (21:08)
[2023-01-08] MEDS: traZODone 100 MG TAB PO (21:08)
[2023-01-08] MEDS: Budesonide/Formoterol 160/4.5 6 GM 60 PUFF INH IH (21:55)
[2023-01-09] VITALS (9 sets, daily range): BP systolic 98–143; BP diastolic 63–78; PULSE 81–133; RESP 18–20; TEMP 36.5–36.9; O2SAT 90–98
[2023-01-09 06:31] LABS: Abs Immature Grans 0.03 10^3/uL (0.0-0.06); Absolute Basophil Count 0.04 10^3/uL (0.0-0.2); Absolute Lymphocyte Count 1.19 10^3/uL (1.2-3.4); Absolute Monocyte Count 0.64 10^3/uL (0.1-0.8); Absolute Neutrophil Count 6.97 10^3/uL (1.2-6.7); Basophils % 0.4; Eosinophils % 1.1; HCT 41.8 % (36.0-46.0); HGB 13.6 g/dL (11.2-15.7); Immature Grans % 0.3; Lymphocytes % 13.3; MCH 28.9 pg (27.0-33.0); MCHC 32.5 % (32.0-36.0); MCV 89 fL (80-95); MPV 9.9 fL (8.0-11.0); Monocytes % 7.1; Neutrophils % 77.8; Platelet Count 168 10^3/uL (130-400); RBC 4.71 10^6/uL (3.93-5.22); RDW 14.2 % (11.7-14.6); RDW-SD 46.6 fL; WBC 8.97 10^3/uL (4.4-10.8)
[2023-01-09 06:42] LABS: Anion Gap 6.6 mmol/L (3-11); BUN 10 mg/dL (7-18); CO2 30.4 mmol/L (21.0-32.0); CREATININE 0.8 mg/dL (0.55-1.02); Chloride 99 mmol/L (98-107); Estimated GFR 73.06 (mL/min/1.73m2); Glucose 99 mg/dL (74-106); Magnesium 1.9 mg/dL (1.8-2.4); Potassium 4.1 mmol/L (3.5-5.1); Sodium 136 mmol/L (136-145)
[2023-01-09] MEDS: Budesonide/Formoterol 160/4.5 6 GM 60 PUFF INH IH ×2 (08:09→19:31)
[2023-01-09] MEDS: cefTRIAXone 2 GM/50 ML BAG IVPB (08:47)
[2023-01-09] MEDS: Magnesium Oxide 400 MG TAB PO (08:48)
[2023-01-09] MEDS: Potassium Chloride 20 MEQ TABCR PO ×2 (08:48→20:27)
[2023-01-09] MEDS: risperiDONE 0.5 MG TAB PO ×2 (08:48→14:19)
[2023-01-09] MEDS: Digoxin 0.125 MG TAB PO (08:48)
[2023-01-09] MEDS: Apixaban 5 MG TAB PO ×2 (08:48→20:27)
[2023-01-09] MEDS: Sertraline 50 MG TAB PO (08:48)
--- NOTE | 2023-01-09 09:44 | PDOC.CMIN ---
Date of service: 01/09/23 Time of Service: 09:44 Care Management Initial Assmt Initial Assessment REASON FOR HOSPITALIZATION:: UTI. CHF PREVIOUS FUNCTIONAL STATUS/SOCIAL/FAMILY SUPPORTS:: Deb lives with her daughter Mimi in [place]. She is with two supportive adult children. In addition to her daughter Mimi, she has a son, Fabricio, who lives locally. Deb also has several grandchildren who live close by. She is independent with her ADL's at baseline. Deb uses both a cane and a walker for ambulatory assistance and Mimi provides her transportation and does all the cooking and housework. CURRENT FUNCTIONAL STATUS:: Deb was sitting up in a chair when CM met with her. She was polite but not eager to answer questions. After about 5 minutes Deb informed CM that she was through answering questions. Fortunately, most information had been received by CM at that point. CHARLEEN Bonds was also present and proceeded with her examination of Deb and CM left the room. ADVANCE DIRECTIVES:: On file. [facility] Has patient been provided with info about the portal/API?: Yes Did the patient sign up for the portal?: No CODE STATUS:: DNR/DNI INSURANCE COVERAGE / FINANCIAL ISSUES:: Medicare [employer] CURRENT HOME/COMMUNITY SERVICES/EQUIPMENT:: cane and walker Deb denies receiving any services at this time but has had home health in the past. PRIMARY CARE PHYSICIAN:: Carolin Salinas POTENTIAL DISCHARGE NEEDS:: follow up with PCP and plan of care PATIENT/FAMILY EDUCATION NEEDS:: Review of discharge instructions including Activity, diet, limitations, follow up plan, discuss Ask Me Three. TRANSPORTATION:: via private vehicle PLAN:: Anticipate Deb will be discharged home with no new services. She will follow up with her PCP and plan of care and transport with family. CM will follow and continue to assess for discharge needs. PFSH All Active Problems (Updated 01/08/23 @ 18:27 by Mimi Dowd NP) Discharge planning issues (Acute) DVT prophylaxis (Acute) Urinary tract infection (Acute) Depression (Chronic) a. 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 plaque per U/S Aminah onychomycosis Cognitive change Complete edentulism, unspecified Congestive heart failure Conjunctivitis COPD (chronic obstructive pulmonary disease) with emphysema CVD (cardiovascular disease) Dependence on supplemental oxygen Depression a. with psychotic features Diarrhea (11/19/14) 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 02/18-09/19, normal metanephrines, normal dexamethasone suppression. 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 hypokalemia b. hypomagnesemia Elevated LDH Elevated serum lactate dehydrogenase (LDH) Encounter for monitoring diuretic therapy Essential (primary) hypertension 06/01/13 Hiatus hernia syndrome 12/05/14 [facility] [place]; EGD History of tobacco use 100pack/years History of tobacco use Hyperlipidemia Increased body mass index Ischemic bowel disease 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) Palliative care patient Palpitations 08/26/14; FREQ PVC BY [facility] Palpitations Pulmonary hypertension Right hip pain Right pontine CVA [facility]-01/30/16; 8X5 mm RUQ abdominal pain Seborrheic keratosis (01/01/16) punch/shave biopsy skin of left arm Seborrheic keratosis (01/01/16) Shortness of breath (10/14/16) SVT (supraventricular tachycardia) (09/15/14) Tachycardia Urinary frequency (08/21/15) Vascular insufficiency of intestine (06/12/15) Weight loss (04/02/14) Weight loss, abnormal (~06/11/21) 30# in last yr Surgical History Appendectomy Biopsy, Soft Tissue (01/01/16) Punch/shave biospy of skin of left arm, seborrheic keratosis Colectomy (09/18/14) DR. GRAJEDA Hemicolectomy [facility]; 09/15/14; RIGHT History of bilateral ligation of fallopian tubes History of partial colectomy 09/15/14 right hemicolectomy w/ileocolic anastomosis History of partial surgical removal of colon (09/15/14) Ligation of fallopian tube S/P AAA repair S/P tubal ligation Status post appendectomy Family History Mother Essential hypertension Alzheimer's disease Father Heart disease Breast cancer Prostate cancer Sister Myocardial infarction Sister Myocardial infarction Brother Cancer Sister No problems noted. Sister No problems noted. Brother Substance abuse Brother Substance abuse Brother Substance abuse Cancer Son No problems noted. Daughter No problems noted. Social History Smoking/Tobacco Use Status: Former Tobacco Use Quit Date: 03/14/12 Tobacco: How many years used: 50 Smoking risk assessment performed?: Yes Alcohol Intake: never Drug use: Never Substance use type: does not use Household members: other Details: 4 Housing: house Pets and animals: Yes Pets and animals: cat(s) and dog(s) Current gender identity: decline to answer What is your relationship status?: refused to answer How often do you talk on the phone with friends or family?: decline to answer How often do you get together with friends or relatives?: decline to answer How often do you attend cheondoism or confucianist services?: decline to answer Do you belong to any clubs or organized social groups?: decline to answer Panel score (0-1 are the most socially isolated patients): 0 What type of physical activity do you participate in: none Lelo/Adventism: No preference Special lelo needs: No Do you feel safe at home: Yes Do you feel safe in your relationship?: Yes
--- NOTE | 2023-01-09 09:54 | PGE_ITS ---
Date of Service Date of service: 01/09/23 Time of Service: 09:54 Assessment and Plan Assessment and plan (1) Urinary tract infection: Status: Acute Assessment and plan: Improve strength,weakness is improved and urinary sx are less Urine positive - started on abx in ED; will continue Ceftriaxone 2 gm daily Awaiting urine culture results GNR: considering oral antibiotics and home tomorrow blood cx pending: negative X 24 hours Acetaminophen prn (2) Chronic heart failure with preserved ejection fraction (HFpEF): Status: Acute Assessment and plan: Will continue home meds Monitor for fluid status (3) Atrial fibrillation: Status: Chronic Assessment and plan: Will continue home meds Controlled on telemetry HR 89-104 Qualifiers: Atrial fibrillation type: unspecified Qualified Code(s): I48.91 - Unspecified atrial fibrillation (4) COPD (chronic obstructive pulmonary disease): Status: Chronic Assessment and plan: Continue home meds No exacerbation (5) Hypertension: Status: Chronic Assessment and plan: Will continue home meds Monitor BP Qualifiers: Hypertension type: essential hypertension Qualified Code(s): I10 - Essential (primary) hypertension (6) DVT prophylaxis: Status: Acute Assessment and plan: On Apixaban Monitor for bleeding (7) Discharge planning issues: Status: Acute Assessment and plan: Home when medically stable CM considering HH needs Subjective Subjective Patient reports: no new complaints, feels better (no c/o pain or dysuria ), tolerating liquids well, tolerating a regular diet, voiding w/o difficulty, flatus, bowel movement, shortness of breath and afebrile; denies diarrhea, nausea or vomiting Exam Narrative Exam Narrative: Constitutional The patient is sitting in chair, comfortable and somewhat cooperative during the interview as patient wanted to go home. Agreable to stay one more night ,after discussing plan of care The patient is without acute distress and has average body habitus HENMT: Head is atraumatic, normocephalic, no lymphadenopathy, protruding tongue on and off Eyes: Well aligned, intact ROM Neck: Normal ROM, no meningeal signs Neuro:alert and oriented to self, person, place time and situation. No neurological focal deficit Chest:Chest is symmetrical and normal appearance Resp: Normal respiratory pattern, speaks in full sentences, unlabored breathing, clear lung bilaterally Cardio: Telemetry :A-Fib HR 89-104, no murmur, capillary refill<3 sec., bilateral radial and dorsalis pedis pulses are positive, palpable GI: Abdomen is not distended, soft and non tender, bowel sounds are present : Negative Costovertebral angle tenderness, Back/spine/Pelvis: No back tenderness, normal alignment Integumentary: No skin lesions or rash Extremities: strength 5/5 to bilateral lower and upper extremities Psych: RASS 0, congruent mood and normal affect, displays irritation when the interventions are longer than she wants. Objective Last Vital Signs Temp 36.5 C 01/09/23 07:35 Pulse 81 01/09/23 08:48 Resp 20 01/09/23 07:35 BP 101/65 01/09/23 07:35 Pulse Ox 98 01/09/23 08:33 Laboratory Results - last 24 hr 01/08/23 01/08/23 01/08/23 12:05 12:05 12:30 WBC 8.47 RBC 4.76 Hgb 13.7 Hct 42.6 MCV 90 MCH 28.8 MCHC 32.2 RDW 14.2 Plt Count 175 MPV 10.1 Immature Gran % 0.4 Neutrophils % 79.5 Lymphocytes % 11.9 Monocytes % 7.3 Eosinophils % 0.5 Basophils % 0.4 Nucleated RBC % 0.0 Absolute Neutrophils 6.74 H Absolute Lymphocytes 1.01 L Absolute Monocytes 0.62 Absolute Eosinophils 0.04 Absolute Basophils 0.03 VBG Lactate 2.0 H Sodium 136 Potassium 3.5 Chloride 98 Carbon Dioxide 30.5 Anion Gap 7.5 BUN 15 Creatinine 1.0 Est GFR (CKD-EPI 2020) 55.90 Glucose 124 H Calcium 9.2 Magnesium 1.8 Cancelled Total Bilirubin 0.9 AST 13 L ALT 18 Alkaline Phosphatase 67 Total Protein 6.5 Albumin 3.4 Procalcitonin < 0.1 Urine Color Yellow Urine Clarity Turbid Urine pH 7.0 Ur Specific [place] 1.015 Urine Protein Negative Urine Ketones Negative Urine Blood Small H Urine Nitrite Negative Urine Bilirubin Negative Urine Urobilinogen 0.2 Ur Leukocyte Esterase Large H Urine RBC Not Applicable Urine WBC >50 H Ur Epithelial Cells Not Applicable Urine Crystals Not Applicable Urine Bacteria Not Applicable Urine Mucus Not Applicable Ur Culture Indicated? Yes Urine Glucose Negative Stl C.difficile Tox PCR Digoxin 0.31 L COVID-19 Source SARS-CoV-2 (PCR) 01/08/23 01/08/23 01/09/23 12:33 19:07 06:08 WBC 8.97 RBC 4.71 Hgb 13.6 Hct 41.8 MCV 89 MCH 28.9 MCHC 32.5 RDW 14.2 Plt Count 168 MPV 9.9 Immature Gran % 0.3 Neutrophils % 77.8 Lymphocytes % 13.3 Monocytes % 7.1 Eosinophils % 1.1 Basophils % 0.4 Nucleated RBC % 0.0 Absolute Neutrophils 6.97 H Absolute Lymphocytes 1.19 L Absolute Monocytes 0.64 Absolute Eosinophils 0.10 Absolute Basophils 0.04 VBG Lactate Sodium 136 Potassium 4.1 Chloride 99 Carbon Dioxide 30.4 Anion Gap 6.6 BUN 10 Creatinine 0.8 Est GFR (CKD-EPI 2020) 73.06 Glucose 99 Calcium 9.0 Magnesium 1.9 Total Bilirubin AST ALT Alkaline Phosphatase Total Protein Albumin Procalcitonin Urine Color Urine Clarity Urine pH Ur Specific [place] Urine Protein Urine Ketones Urine Blood Urine Nitrite Urine Bilirubin Urine Urobilinogen Ur Leukocyte Esterase Urine RBC Urine WBC Ur Epithelial Cells Urine Crystals Urine Bacteria Urine Mucus Ur Culture Indicated? Urine Glucose Stl C.difficile Tox PCR Negative Digoxin COVID-19 Source Nasal/Nares SARS-CoV-2 (PCR) Negative Time Spent with Patient Time Spent with Patient: >50 minutes Time was spent: preparing to see the patient(eg.review tests), ordering medications,tests, procedures, referring, communicating with other health respiratory care assistant, indepentently interpreting results, counseling the patient and care coordination
--- NOTE | 2023-01-09 10:06 | PT.INIE ---
Date of service: 01/09/23 Time of Service: 09:45 PT Notes Visit Reasons: UTI, SEPSIS Inpatient Physical Therapy Evaluation Date: January 09, 2023 Referring Doctor: Sekou Guerrero PT Orders: PT CONSULT Precautions: Standard Patient Profile/Admitting Diagnosis: Deb is an 82 year old female with past medical history of CHF, atrial fibrillation, on Apixaban, COPD, hypertension, who presented to the [facility] ED yesterday for evaluation of weakness and urinary frequency, and some mild intermittent confusion for the past 3 days. Patient also reported abdominal pain diagnosed with UTI and sepsis. PMHX: (Updated 01/08/23 @ 18:27 by Mimi Dowd NP) Discharge planning issues (Acute) DVT prophylaxis (Acute) Urinary tract infection (Acute) Depression (Chronic) a. 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 plaque per U/SCandida onychomycosis Cognitive change Complete edentulism, unspecified Congestive heart failure Conjunctivitis COPD (chronic obstructive pulmonary disease) with emphysema CVD (cardiovascular disease) Dependence on supplemental oxygen Depression a. with psychotic featuresDiarrhea (11/19/14) 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 02/18-09/19, normal metanephrines, normal dexamethasone suppression.Disorder of adrenal gland Disorder of appendix 12/07/12 s/p appendectomyDisorder of appendix (12/07/12) DVT prophylaxis Electrolyte imbalance (09/15/14) a. hypokalemia b. hypomagnesemia Elevated LDH Elevated serum lactate dehydrogenase (LDH) Encounter for monitoring diuretic therapy Essential (primary) hypertension 06/01/13Hiatus hernia syndrome 12/05/14 [facility] [place]; [place] History of tobacco use 100pack/yearsHistory of tobacco use Hyperlipidemia Increased body mass index Ischemic bowel disease 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) Palliative care patient Palpitations 08/26/14; FREQ PVC BY HOLTER Palpitations Pulmonary hypertension Right hip pain Right pontine CVA [facility]-01/30/16; 8X5 mm RUQ abdominal pain Seborrheic keratosis (01/01/16) punch/shave biopsy skin of left arm Seborrheic keratosis (01/01/16) Shortness of breath (10/14/16) SVT (supraventricular tachycardia) (09/15/14) Tachycardia Urinary frequency (08/21/15) Vascular insufficiency of intestine (06/12/15) Weight loss (04/02/14) Weight loss, abnormal (~06/11/21) 30# in last yr Surgical History Appendectomy Biopsy, Soft Tissue (01/01/16) Punch/shave biospy of skin of left arm, seborrheic keratosisColectomy (09/18/14) DR. GRAJEDAHemicolectomy [facility]; 09/15/14; RIGHTHistory of bilateral ligation of fallopian tubes History of partial colectomy 09/15/14 right hemicolectomy w/ileocolic anastomosisHistory of partial surgical removal of colon (09/15/14) Ligation of fallopian tube S/P AAA repair S/P tubal ligation Status post appendectomy Social History/Home Situation:Lives with daughter in a private home.?5 steps to enter with railings. Uses a FWW for all mobility ADL performance at home. Daughter provides assistance with bathing using a shower chair. Equipment Owned/DME: Cane, FWW Subjective: Deb notes that she is feeling better. She is agreeable to PT consult this morning. Objective: General Observation: telemetry, catheter, IV R UE Mental Status: Alert and oriented x3. very pleasant Pain: Declines pain at time of PT consult Vital Signs: Monitored via Nursing ROM: Right Upper Extremity: ? Shoulder Flexion lacks the last 25% of AROM. Shoulder abduction lacks the last 25% of AROM. Elbow flexion WFL. Wrist flexion WFL. Functional opening and closing of hand WFL. Left Upper Extremity:? Shoulder Flexion lacks the last 25% of AROM. Shoulder abduction lacks the last 25% of AROM. Elbow flexion WFL. Wrist flexion WFL. Functional opening and closing of hand WFL. Right Lower Extremity: Hip flexion lacks the last 25% of AROM. Hip abduction lacks the last 25% of AROM. Knee flexion 30 to 90 degrees. Knee extension -30 degrees. Ankle dorsiflexion WFL. Ankle plantarflexion WFL. Left Lower Extremity: Hip flexion lacks the last 25% of AROM. Hip abduction lacks the last 25% of AROM. Knee flexion 30 to 90 degrees. Knee extension -30 degrees. Ankle dorsiflexion WFL. Ankle plantarflexion WFL. Strength: Right Upper Extremity: Shoulder flexors 3-/5. Shoulder abductors 3-/5. Elbow flexors 3-/5. Elbow extensors 3-/5. Radio Communication Coordinator strong. Left Upper Extremity: Shoulder flexors 3-/5. Shoulder abductors 3-/5. Elbow flexors 3-/5. Elbow extensors 3-/5. Radio Communication Coordinator strong. Right Lower Extremity: Hip flexors 3+/5. Hip abductors 4-/5. Knee flexors 4-/5. Knee extensors 4-/5. Ankle dorsiflexors 3/5. Ankle plantarflexors 4-/5. Left Lower Extremity: Hip flexors 3+/5. Hip abductors 4-/5. Knee flexors 3+/5. Knee extensors 4-/5. Ankle dorsiflexors 3/5. Ankle plantarflexors 4-/5. Bed Mobility/Transfers: Supine to sit minimal assist of 1 Sit to stand minimal assist of 1 and use of FWW Stand to sit minimal assist of 1 and use of FWW Bed to reclining chair minimal assist of 1 and use of FWW Gait: Instructed patient with level surface ambulation of about 20 feet requiring minimal assist of 1 with use of FWW. Valentine decreased. Step height decreased. Step length decreased. Balance: Static Sitting: Good Dynamic Sitting: Good Static Standing: Fair Dynamic Standing: Fair Special Tests: Mobility Limitations Standardized Measure [facility] AM-PAC 6 clicks Basic Mobility Inpatient Short Form: Raw Score: 18 CMS Score: 46% Informed Consent/Education: Patient instructed in purpose of PT consult and plan of care. Assessment: Patient is a 82 year old female referred to physical therapy services with the diagnosis of UTI/sepsis. Patient presents with clinical signs and symptoms consistent with diagnosis that have resulted to mobility limitations, gait instability, generalized weakness, and overall ADL decline as demonstrated by the following impairment level findings: 1.? Decreased strength to B UE/LE major muscle groups 2.? Impaired sitting/standing balance 3.? Impaired activity tolerance Impairments are contributing to the following functional limitations: 1.? Decline in transfer skills 2.? Difficulty with ambulation without assistive device and physical assistance 3.? Increased completion time for mobility ADL performance 4.? Increased risk for falls Patient is assessed as a [id number] moderate complexity based on the following: History: As above Examination: As above Presentation: Evolving Decision Making:?Moderate complexity Goals: Goals X1 week 1. Supine-Sit independent 2. Sit-Supine independent 3. Sit-Stand independent 4. Stand-Sit independent with FWW 5. Bed-Chair independent with FWW 6. Chair-Bed independent with FWW 7. Independent gait on level surface with use of FWW for at least 100 feet without report of pain nor dyspnea 8. Independent stair negotiation while holding onto B rails for at least 5 steps without report of pain nor dyspnea 9. Independent with home exercise program 10. Good static and dynamic standing balance/tolerance Plan of Care/Treatment Plan: 1-2x/day, 7 days/week x 1 week. Plan of care has been reviewed with the GRAIN OPERATOR providing the service under Physical Therapy direction. Initiate Physical Therapy intervention for strengthening, bed mobility, transfers, gait, stairs, balance training, use of assistive device. DISCHARGE RECOMMENDATIONS: Return home with daughter once medically cleared TREATMENT CODE/TIME: 37746, IE, 25 minutes, 9:45 [facility] Disclaimer: This note was created using Bikmo voice recognition software. It was reviewed for major content. However, there may be multiple small discrepancies and errors due to the voice recognition aspects of the software.
[2023-01-09] MEDS: LORazepam 0.5 MG TAB PO ×2 (14:22→20:27)
[2023-01-09] MEDS: risperiDONE 1 MG TAB 2 MG PO (20:27)
[2023-01-09] MEDS: traZODone 100 MG TAB PO (20:27)
[2023-01-10 04:34] VITALS: BP 113/69; PULSE 98; RESP 19; TEMP 36.6; O2SAT 92
[2023-01-10 06:53] LABS: Abs Immature Grans 0.04 10^3/uL (0.0-0.06); Absolute Basophil Count 0.04 10^3/uL (0.0-0.2); Absolute Eosinophil Count 0.12 10^3/uL (0.0-0.7); Absolute Lymphocyte Count 1.39 10^3/uL (1.2-3.4); Absolute Neutrophil Count 6.26 10^3/uL (1.2-6.7); Basophils % 0.5; Eosinophils % 1.4; HGB 13.9 g/dL (11.2-15.7); Immature Grans % 0.5; Lymphocytes % 16.1; MCH 29.1 pg (27.0-33.0); MCHC 33.1 % (32.0-36.0); MCV 88 fL (80-95); MPV 10.5 fL (8.0-11.0); Monocytes % 9.2; Neutrophils % 72.3; Platelet Count 152 10^3/uL (130-400); RBC 4.77 10^6/uL (3.93-5.22); RDW 14.1 % (11.7-14.6); RDW-SD 45.4 fL; WBC 8.65 10^3/uL (4.4-10.8)
[2023-01-10 07:03] LABS: Anion Gap 7.2 mmol/L (3-11); BUN 9 mg/dL (7-18); CO2 30.8 mmol/L (21.0-32.0); CREATININE 0.8 mg/dL (0.55-1.02); Calcium 9.1 mg/dL (8.5-10.1); Chloride 97 mmol/L (98-107); Estimated GFR 73.06 (mL/min/1.73m2); Glucose 101 mg/dL (74-106); Potassium 3.9 mmol/L (3.5-5.1); Sodium 135 mmol/L (136-145)
--- NOTE | 2023-01-10 07:54 | PCNE_ITS ---
Date of service: 01/10/23 Time of Service: 07:54 History of Present Illness History of Present Illness Chief Complaint: CHF, weakness Narrative: From H and P This is an 82 year old female with past medical history of CHF, atrial fibrillation, on Apixaban, COPD, hypertension, who presented to the [facility] ED for evaluation of weakness and urinary frequency, and some mild intermittent confusion for the past 3 days. Patient also reported abdominal pain. Denied any fever or chills. Patient also had a witnessed fall this morning secondary to weakness, slid down and landed on her bottom, denied any head injury. In the ED patient was alert and oriented x3 on assessment, able to follow basic commands, no visible sign of trauma. Urinalysis positive for urinary tract infection, CT no hydronephrosis, no stones. Lactate 2, no leukocytosis, atrial fibrillation on EKG, rate controlled. Blood pressure stable. Patient is admitted to the medical floor for further testing, antibiotics and other treatment. Patient is DNR/DNI. Interim hx: Deb recognizes who I am. Her first words to me I want to go home. She continues to fail. She does have intermittent confusion at times. Found to have a UTI and is being treated Assessment and Plan Assessment and plan (1) Urinary tract infection: Status: Acute (2) Chronic heart failure with preserved ejection fraction (HFpEF): Status: Acute (3) Anxiety: Status: Chronic (4) COPD (chronic obstructive pulmonary disease): Status: Chronic Assessment and plan: Called siobhan Le at [phone] number. COuld not leave a message as the mailbox was full. Spoke to Dr. Shell. Both of us seeing Deb is failing. She would probably qualify for hospice at this time and therefore Mimi would have access to care when Deb does become confused etc. I do think Deb has less than a 6-month prognosis. We had spoken about this in the past but Mimi did not feel that she was quite ready. Again I did try to call Mimi to talk with her She continues on ceftriaxone. Sensitivities are not yet back. She is back on her regular psych meds which is excellent. We will continue to follow her Review of Systems Narrative: Primarily wants to go home. She is not in pain. She does feel weak. She states that she is anxious. PFSH All Active Problems (Updated 01/09/23 @ 15:41 by CHIKA Reed) Discharge planning issues (Acute) DVT prophylaxis (Acute) Urinary tract infection (Acute) Depression (Chronic) a. 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 plaque per U/S Aminah onychomycosis Cognitive change Complete edentulism, unspecified Congestive heart failure Conjunctivitis COPD (chronic obstructive pulmonary disease) with emphysema CVD (cardiovascular disease) Dependence on supplemental oxygen Depression a. with psychotic features Diarrhea (11/19/14) 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 02/18-09/19, normal metanephrines, normal dexamethasone suppression. 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 hypokalemia b. hypomagnesemia Elevated LDH Elevated serum lactate dehydrogenase (LDH) Encounter for monitoring diuretic therapy Essential (primary) hypertension 06/01/13 Hiatus hernia syndrome 12/05/14 [facility] [place]; [place]GD History of tobacco use 100pack/years History of tobacco use Hyperlipidemia Increased body mass index Ischemic bowel disease 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) Palliative care patient Palpitations 08/26/14; FREQ PVC BY HOLTER Palpitations Pulmonary hypertension Right hip pain Right pontine CVA [facility]-01/30/16; 8X5 mm RUQ abdominal pain Seborrheic keratosis (01/01/16) punch/shave biopsy skin of left arm Seborrheic keratosis (01/01/16) Shortness of breath (10/14/16) SVT (supraventricular tachycardia) (09/15/14) Tachycardia Urinary frequency (08/21/15) Vascular insufficiency of intestine (06/12/15) Weight loss (04/02/14) Weight loss, abnormal (~06/11/21) 30# in last yr Surgical History Appendectomy Biopsy, Soft Tissue (01/01/16) Punch/shave biospy of skin of left arm, seborrheic keratosis Colectomy (09/18/14) DR. GRAJEDA Hemicolectomy [facility]; 09/15/14; RIGHT History of bilateral ligation of fallopian tubes History of partial colectomy 09/15/14 right hemicolectomy w/ileocolic anastomosis History of partial surgical removal of colon (09/15/14) Ligation of fallopian tube S/P AAA repair S/P tubal ligation Status post appendectomy Family History Mother Essential hypertension Alzheimer's disease Father Heart disease Breast cancer Prostate cancer Sister Myocardial infarction Sister Myocardial infarction Brother Cancer Sister No problems noted. Sister No problems noted. Brother Substance abuse Brother Substance abuse Brother Substance abuse Cancer Son No problems noted. Daughter No problems noted. Social History Smoking/Tobacco Use Status: Former Tobacco Use Quit Date: 03/14/12 Tobacco: How many years used: 50 Smoking risk assessment performed?: Yes Alcohol Intake: never Drug use: Never Substance use type: does not use Household members: other Details: 4 Housing: house Pets and animals: Yes Pets and animals: cat(s) and dog(s) Current gender identity: decline to answer What is your relationship status?: refused to answer How often do you talk on the phone with friends or family?: decline to answer How often do you get together with friends or relatives?: decline to answer How often do you attend hinduism or protestant services?: decline to answer Do you belong to any clubs or organized social groups?: decline to answer Panel score (0-1 are the most socially isolated patients): 0 What type of physical activity do you participate in: none Lelo/Restorationism: No preference Special lelo needs: No Do you feel safe at home: Yes Do you feel safe in your relationship?: Yes Exam Narrative Exam Narrative: Deb is an 82-year-old woman who I have known for more than 20 years. She has been failing over time. Her heart was tachycardic and difficult to hear the rhythm. I did not appreciate any wheezing or rales in her lungs. Mood pretty much baseline she always wants to go home. She does have some mild edema in her legs. Results Last Vital Signs Temp 97.9 F 01/10/23 04:34 Pulse 98 H 01/10/23 04:34 Resp 19 01/10/23 04:34 BP 113/69 01/10/23 04:34 Pulse Ox 92 01/10/23 04:34 ABDOMEN and PELVIS: Lung Bases: Heart is enlarged. Mitral valve heavily calcified. Calcifications at aortic valve. Small hiatal hernia. Stable appearance of right lower lobe mass/scarring. Dependent changes on the left. Liver: Normal density. No measurable mass. Mildly heterogeneous attenuation consistent with phase of contrast administration. The headache veins are not yet opacified. Gallbladder and biliary tract: Cholelithiasis. Similar appearance of tubular structure at the fundus of the gallbladder which could represent a Phrygian cap. No abnormal gallbladder distention. No biliary dilatation. Pancreas: Normal density. No abnormal calcifications or inflammatory process. No evidence of mass. Spleen: Normal. Kidneys: Normal size, contour and axis. No radiodense stones. No obstructive uropathy. No suspicious masses seen. Adrenal glands: Stable bilateral renal nodules. No follow-up recommended. Vasculature: Aorta maximally measures 4.4 cm, similar to prior. Atherosclerotic changes. Stent in aorta and left proximal iliac artery for aneurysm repair. Celiac artery and superior mesenteric artery stents. Right common iliac arteries again noted to be occluded. Soft tissues: Unremarkable. Bladder: Bladder wall diverticula. Circumferential thickening. No calculi.No focal mass. Bowel: No obstruction. No bowel wall thickening. Moderate quantity of stool descending and sigmoid colon. Peritoneal cavity: No ascites. No focal collection or mesenteric inflammatory response. Bones: Degenerative changes. Minimal anterior wedging lower thoracic vertebral bodies, not changed from prior. Reproductive organs: Small uterine fibroids. Lymph nodes: Unremarkable. IMPRESSION:: Bladder wall thickening and multiple diverticula. Consider cystitis. No evidence of hydronephrosis. Cholelithiasis. No evidence of acute cholecystitis. Urine Culture Preliminary 01/09/23-0857 Day 1 Result ISOLATES BELOW ISOLATE 1 COLONY COUNT 50,000 - 100,000 COLONIES/ML ISOLATE 1 APPEARANCE Gram Negative Sudha ISOLATE 1 ACTION ID AND SUSCEPTIBILITY TO FOLLOW ISOLATE 2 COLONY COUNT 50,000 - 100,000 COLONIES/ML ISOLATE 2 APPEARANCE Gram Positive Amanda ISOLATE 2 ACTION IDENTIFICATION TO FOLLOW Organism 1 GRAM NEGATIVE SUDHA COLONY COUNT 50,000 - 100,000 COLONIES/ML Organism 2 GRAM POSITIVE AMANDA COLONY COUNT 50,000 - 100,000 COLONIES/ML Labs 01/10/23 06:11 01/10/23 06:11 Labs: Laboratory Results - last 24 hr 01/10/23 06:11 WBC 8.65 RBC 4.77 Hgb 13.9 Hct 42.0 MCV 88 MCH 29.1 MCHC 33.1 RDW 14.1 Plt Count 152 MPV 10.5 Immature Gran % 0.5 Neutrophils % 72.3 Lymphocytes % 16.1 Monocytes % 9.2 Eosinophils % 1.4 Basophils % 0.5 Nucleated RBC % 0.0 Absolute Neutrophils 6.26 Absolute Lymphocytes 1.39 Absolute Monocytes 0.80 Absolute Eosinophils 0.12 Absolute Basophils 0.04 Sodium 135 L Potassium 3.9 Chloride 97 L Carbon Dioxide 30.8 Anion Gap 7.2 BUN 9 Creatinine 0.8 Est GFR (CKD-EPI 2020) 73.06 Glucose 101 Calcium 9.1
[2023-01-10] MEDS: Budesonide/Formoterol 160/4.5 6 GM 60 PUFF INH IH ×2 (08:09→19:16)
--- NOTE | 2023-01-10 08:47 | PDOC.CMPRO ---
Date of service: 01/10/23 Time of Service: 08:47 Care Management Progress Note Progress Note Text Progress Note Text: S/O: A: Deb is an 82 year old female admitted to [facility] on 01/08/23 for UTI, sepsis. P: Anticipate Deb will be discharged home with no new services. She will follow up with her PCP and plan of care and transport with family. CM will follow and continue to assess for discharge needs.
[2023-01-10 09:42] VITALS: PULSE 126
[2023-01-10] MEDS: Apixaban 5 MG TAB PO (09:42)
[2023-01-10] MEDS: Magnesium Oxide 400 MG TAB PO (09:42)
[2023-01-10] MEDS: Digoxin 0.125 MG TAB PO ×2 (09:42→12:29)
[2023-01-10] MEDS: Potassium Chloride 20 MEQ TABCR PO (09:42)
[2023-01-10] MEDS: risperiDONE 0.5 MG TAB PO ×2 (09:46→13:41)
[2023-01-10] MEDS: Sertraline 50 MG TAB PO (09:46)
[2023-01-10] MEDS: cefTRIAXone 2 GM/50 ML BAG IVPB (09:47)
[2023-01-10 09:51] VITALS: BP 111/74; PULSE 126; RESP 17; TEMP 36.5; O2SAT 93
--- NOTE | 2023-01-10 11:47 | PTTR_ITS ---
Date of service: 01/10/23 Time of Service: 11:25 PT Notes Visit Reasons: UTI, SEPSIS Inpatient Physical Therapy Treatment Note [facility] Date: 01/10/25 PRECAUTIONS: Fall, standard, activity as tolerated. SUBJECTIVE: Patient reports feeling good. OBJECTIVE: Sitting up in recliner with feet elevated. Agreeable to therapy, declines ambulation. ? PAIN: Yes midway through ambulation patient reports pain in right calf. States she things she overdid it with the exercises. VITALS: monitored by nursing staff. ? ? ? BED MOBILITY/TRANSFERS? Rolling L/R: not assessed Supine-sit: not assessed ? Sit-supine: not assessed ? Sit-stand: independent ? Stand-sit: independent ? Bed-Chair: SBA ? Chair-bed: SBA ? Therapeutic Exercises ([id number]): Direct one-on-one instruction in therapeutic exercises to develop strength, endurance, range of motion and flexibility. ? Exercises * seated ankle pumps 2x10 * LAQ's 2x10. Verbal and visual cues to keep patient on task. * seated marching x10 * Seated hip abduction against therapist manual resistance x10, verbal and tactile cues to engage hip abductors appropriately, to facilitate patient's ability to transfer and ambulate safely. * sit to stands x5 Ambulation ? Assistive Device: FWW? Weight bearing: full Assist: SBA? Distance:? 100 feet ? Deviation: reduced monse, reduced step height, reduced stride length, narrow CINDY, reduced heel strike, kyphotic head-forward posture ? Provided skilled instruction in proper exercise performance Provided skilled manual cues to facilitate proper muscle recruitment and/or form. ASSESSMENT:? Patient tolerates therapy well, reports that it was easy. No c/o increased pain, dyspnea. PLAN: Continue global strengthening per plan of care until patient is medically cleared for discharge. TREATMENT CODE/TIME: 13 minutes beginning at 11:25
[2023-01-10 12:29] VITALS: PULSE 91
[2023-01-10] MEDS: Fosfomycin Tromethamine 3 GM PACKET PO (12:29)
[2023-01-10 16:32] VITALS: BP 160/76; PULSE 106; RESP 18; TEMP 36.3; O2SAT 95
--- NOTE | 2023-01-10 17:05 | PDOC.CMDIS ---
Date of service: 01/10/23 Time of Service: 17:05 LACE Index Scoring Tool Questions: Length of Stay (in days): 2 Was the patient admitted via the E.D.?: Yes Comorbidities: Congestive Heart Failure and Chronic Pulmonary Disease E.D. Visits: 3 Answers: Total Score: 13 Risk of Readmission: High Risk Care Management Discharge Plan Reason for Hospitalization: UTI. CHF Discharge Plan: Deb will return home today with new orders for HH RN. Her daughter will drive her home via private vehicle. She will follow up with her PCP and discharge plan of care. Patient/Family Education Needs: Review discharge instructions and limitations, discussion of self care needs including ask me three.
--- NOTE | 2023-01-10 17:43 | W.PM.DS.N ---
Date of service: 01/10/23 Time of Service: 14:00 DS: Diagnosis Discharge Diagnosis (1) Urinary tract infection: Status: Resolved (2) Chronic heart failure with preserved ejection fraction (HFpEF): Status: Acute (3) Anxiety: Status: Chronic (4) COPD (chronic obstructive pulmonary disease): Status: Chronic Discharge Plan Disposition Patient Disposition: Home W/Home Health Services Condition: Stable Discharge Details Reason For Visit: UTI, SEPSIS Admit Date/Time: 01/08/23 15:32 Admit Provider: Sekou Guerrero Attending Provider: Sekou Guerrero Primary Care Provider: Carolin Salinas [facility] Course Hospital Course: This is an 82 year old female with past medical history of CHF, atrial fibrillation, on Apixaban, COPD, hypertension, who presented to the [facility] ED for evaluation of weakness and urinary frequency, and some mild intermittent confusion for the past 3 days. Patient also reported abdominal pain. Denied any fever or chills. Patient also had a witnessed fall this morning secondary to weakness, slid down and landed on her bottom, denied any head injury. In the ED patient was alert and oriented x3 on assessment, able to follow basic commands, no visible sign of trauma. Urinalysis positive for urinary tract infection, CT no hydronephrosis, no stones. Lactate was 2.0. Digoxin 0.31, no leukocytosis, atrial fibrillation on EKG, rate controlled on digoxin in the ED. Blood pressure stable. Patient was admitted to the medical floor for further testing, antibiotics and other treatment. The patient was treated with ceftriaxone IV. Urine culture and sensitivity ordered and Citrobacter Freundii grew; it was sensitive to Fosfomycin and the patient received Fosfomycin 3 gm PO single dose. The patient was on telemetry and her HR would go up in the 130?s; Digoxin level was subtherapeutic at 0.31, the patient is getting her medicine daily at home from her daughter, thus compliant. Digoxin dose was increased to 0.25 mg oral daily after pharmacy consultation regarding dosing and renal function/ creatinine clearance; the goal is to meet therapeutic level of at least 0.9 then resuming her home dose of 0.125 mg PO daily. The patient will require Digoxin level on 01/17/2023 as well as a urinalysis and a follow up with her PCP on 01/18/2023 for management of aforementioned digoxin level and urinalysis results. Home Meds and New Rx's Prescriptions: Continued magnesium oxide 400 mg (241.3 mg magnesium) tablet 400 mg PO DAILY Qty: 90 5RF risperidone [Risperdal] 2 mg tablet 2 mg PO HS Qty: 90 5RF sertraline 50 mg tablet 50 mg PO DAILY Qty: 90 5RF trazodone 100 mg tablet 100 mg PO HS Qty: 90 5RF risperidone [Risperdal] 0.5 mg tablet 0.5 mg PO BID protein [Ensure High Protein] Powder 1 pwd PO DAILY Qty: 480 4RF Lactobacillus acidophilus 1 EACH tablet 1 ea PO BID Ensure High Protein Liquid 237 ml PO BID Qty: 17851 12RF Rx Instructions: dispense 60 cans potassium chloride [Klor-Con M20] 20 mEq tablet,ER particles/crystals 20 meq PO BID Qty: 180 5RF lorazepam 0.5 mg tablet 0.5 mg PO TID PRN Qty: 270 4RF Eliquis 5 mg tablet 5 mg PO BID Qty: 180 5RF acetaminophen [Tylenol] 325 MG tablet 650 mg PO Q8H PRN PRN fluticasone propion-salmeterol [Advair Diskus] 500-50 mcg/dose blister with device 1 inh INHALATION BID Patient Comments: INHALE 1 PUFF BY MOUTH TWO TIMES A DAY albuterol sulfate 90 mcg/actuation HFA aerosol inhaler 2 puff INHALATION Q4H PRN Patient Comments: INHALE 2 PUFFS BY MOUTH EVERY 4 HOURS NEEDED FOR SHORTNESS OF BREATH Discontinued digoxin 125 mcg (0.125 mg) tablet 125 mcg PO DAILY Qty: 90 5RF No Action digoxin 125 mcg (0.125 mg) tablet 0.25 mg PO DAILY Qty: 180 1RF furosemide 20 mg tablet 20 mg PO DAILY Qty: 90 5RF Discharge Instructions Stand Alone Forms: Nursing Discharge Form Referrals: Carolin Salinas MD, [place] [Primary Care Provider] - 01/18/23 1:00 pm (This is an 82 year old female with past medical history of CHF, atrial fibrillation, on Apixaban and digoxin, COPD, hypertension, who presented to the [facility] ED for weakness and urinary frequency, and some mild intermittent confusion for the past 3 days and falling in a sitting position, abdominal pain. Head CT negative, positive UTI; ceftriaxone IV then Fosfomycin 3gm oral in patient- UA on 01/17. Digoxin level was 0.3 ng/dl while on 0.125 mcg daily( as per GFR of 43 max dose was only 0.125 mcg but experiencing RVR) increased to 0.250mcg PO daily as patient stated to be compliant. Digoxin Level ordered for 01/17. F/U for digoxin level and UTI please. PO Denied any fever or chills. Patient also had a witnessed fall this morning secondary to weakness, slid down and landed on her bottom, denied any head injury. In the ED patient was alert and oriented x3 on assessment, able to follow basic commands, no visible sign of trauma. Urinalysis positive for urinary tract infection, CT no hydronephrosis, no stones. Lactate 2, no leukocytosis, atrial fibrillation on EKG, rate controlled. Blood pressure stable. Patient is admitted to the medical floor for further testing, antibiotics and other treatment. Patient is DNR/DNI. ) Activity:: Activity as Tolerated Equipment/Supplies:: Walker Diet:: low sodium Discharge Orders Discharge Orders: Discharge Order (Routine); Ordered 01/10/23 Ordered By: Cammie Mendes Other Ambulatory Orders: Urinalysis (Routine) Timeframe: 20230117 Location: None Selected Ordered By: Cammie Mendes Digoxin (Routine) Timeframe: 20230117 Location: None Selected Ordered By: Cammie Mendes Discharge Data Discharge Date/Time-TO BE ENTERED AT DEPARTURE: 01/10/23 19:30 DS: Summary Time Spent with Patient providing and/or coordinating discharge services: Greater than 30 minutes Status at Discharge Functional status at discharge: uses cane/walker Overall status at discharge: patient is back to baseline Mental Status: mental status grossly normal Speech and Movement: speech and movement normal Mood: congruent mood Affect: normal affect Exam Narrative Exam Narrative: Constitutional The patient is sitting in chair, comfortable and somewhat cooperative during the interview as patient still want to go home. Agreable to stay one more night ,after discussing plan of care The patient is without acute distress and has average body habitus HENMT: Head is atraumatic, protruding tongue on and off Eyes: Well aligned Neck: Normal ROM, Neuro:alert and oriented to self, person, place time and situation. Chest:Chest is symmetrical Resp: Normal respiratory pattern, speaks in full sentences but delayed, unlabored breathing, clear lung bilaterally Cardio: Telemetry :A-Fib HR 89-104, no murmur, capillary refill<3 sec., bilateral radial and dorsalis pedis pulses are positive, palpable GI: Abdomen is not distended, soft and non tender, bowel sounds are present : Negative Costovertebral angle tenderness, Back/spine/Pelvis: No back tenderness, normal alignment Integumentary: No skin lesions or rash Extremities: strength 5/5 to bilateral lower and upper extremities Psych: RASS 0, congruent mood and normal affect, remains calm during the interventions are longer than she wants. Psych Mental Status: mental status grossly normal Speech and Movement: speech and movement normal Mood: congruent mood Affect: normal affect DS: Data Vitals/I&O Vitals and I&O: Vital Signs Temperature 36.3 C L 01/10/23 16:32 Temperature Source Tympanic 01/10/23 16:32 Pulse 106 H 01/10/23 16:32 Pulse Rhythm Irregular 01/10/23 09:30 Pulse 83 01/08/23 17:00 Respiratory Rate 18 01/10/23 16:32 Respiratory Effort Normal, Non-Labored 01/10/23 09:30 Respiratory Depth Normal 01/10/23 09:30 Respiratory Pattern Normal 01/10/23 09:30 Blood Pressure 160/76 H 01/10/23 16:32 Blood Pressure Mean 78 01/08/23 16:02 Blood Pressure Position Supine 01/08/23 12:05 Pulse Oximetry 95 01/10/23 16:32 Oxygen Delivery Method Room Air 01/10/23 16:32 Oxygen Flow Rate 0 01/10/23 16:32 Pain Level 0 01/10/23 16:32 Comment RN Notified 01/09/23 04:06 Intake & Output 01/09/23 01/10/23 01/10/23 23:59 11:59 23:59 Intake Total 460 / 750 240 / 240 Output Total 1150 / 2000 400 / 1050 650 / 1050 Balance -690 / -1250 -400 / -810 -410 / -810 Intake: Oral 460 / 700 240 / 240 Output: Urine 1150 / 2000 400 / 1050 650 / 1050 Other: Urine Color Yellow Yellow Pale Urine Appearance Cloudy Clear Clear Urine Odor Normal Normal Comment pT sat on the commode after being incontinent. Did not void on commode. mixed with stool Stool Occult Blood Negative Stool Size Small Smear Stool Characteristics Soft Soft Brown Voiding Methods Bedside Commode Bedside Commode Bedside Commode Data Completed and Pending Labs on day of discharge: Labs from last 24 hours 01/10/23 01/08/23 06:11 12:30 WBC 8.65 RBC 4.77 Hgb 13.9 Hct 42.0 MCV 88 MCH 29.1 MCHC 33.1 RDW 14.1 Plt Count 152 MPV 10.5 Immature Gran % 0.5 Neutrophils % 72.3 Lymphocytes % 16.1 Monocytes % 9.2 Eosinophils % 1.4 Basophils % 0.5 Nucleated RBC % 0.0 Absolute Neutrophils 6.26 Absolute Lymphocytes 1.39 Absolute Monocytes 0.80 Absolute Eosinophils 0.12 Absolute Basophils 0.04 Sodium 135 L Potassium 3.9 Chloride 97 L Carbon Dioxide 30.8 Anion Gap 7.2 BUN 9 Creatinine 0.8 Est GFR (CKD-EPI 2020) 73.06 Glucose 101 Calcium 9.1 Urine Color Yellow Urine Clarity Turbid Urine pH 7.0 Ur Specific [place] 1.015 Urine Protein Negative Urine Ketones Negative Urine Blood Small H Urine Nitrite Negative Urine Bilirubin Negative Urine Urobilinogen 0.2 Ur Leukocyte Esterase Large H Urine WBC >50 H Ur Culture Indicated? Yes Urine Glucose Negative Preliminary micro results at discharge 01/08/23 12:35 Blood Culture - Preliminary Blood NO GROWTH 48 HOURS 01/08/23 12:05 Blood Culture - Preliminary Blood NO GROWTH 48 HOURS 01/08/23 12:30 Urine Culture - Preliminary Urine - Reflex from Ua Citrobacter Freundii Gram Positive Caren PFSH All Active Problems Congestive heart failure (CHF) (Chronic) Breath shortness (Acute) Aminah onychomycosis (Acute) Depression (Chronic) a. 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 Positive neutrophil AB mostlikely indicating ulcerative colitis Anxiety (Chronic 07/25/17) Coronary disease (Chronic) COPD (chronic obstructive pulmonary disease) (Chronic) Hypertension (Chronic) SCHAEFFER (nonalcoholic steatohepatitis) (Chronic) H/O inflammatory bowel disease (Chronic) Medical History Acute hypoxemic respiratory failure Acute and chronic respiratory failure with hypoxia Conjunctivitis Right hip pain Cognitive change RUQ abdominal pain Weight loss, abnormal (~06/11/21) 30# in last yr Bradycardia Encounter for monitoring diuretic therapy Pulmonary hypertension Congestive heart failure Tachycardia Bruit Disorder of adrenal gland Disorder of appendix (12/07/12) Elevated serum lactate dehydrogenase (LDH) History of tobacco use Palpitations Seborrheic keratosis (01/01/16) Vascular insufficiency of intestine (06/12/15) 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 02/18-09/19, normal metanephrines, normal dexamethasone suppression. History of tobacco use 100pack/years Bruit of left carotid artery mild-mod. 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 hypokalemia b. hypomagnesemia Surgical History History of bilateral ligation of fallopian tubes History of partial surgical removal of colon (09/15/14) Status post appendectomy History of partial colectomy 09/15/14 right hemicolectomy w/ileocolic anastomosis Ligation of fallopian tube Hemicolectomy [facility]; 09/15/14; RIGHT Colectomy (09/18/14) DR. GRAJEDA Biopsy, Soft Tissue (01/01/16) Punch/shave biospy of skin of left arm, seborrheic keratosis Appendectomy S/P tubal ligation S/P AAA repair Family History Mother Essential hypertension Alzheimer's disease Father Heart disease Breast cancer Prostate cancer Sister Myocardial infarction Sister Myocardial infarction Brother Cancer Sister No problems noted. Sister No problems noted. Brother Substance abuse Brother Substance abuse Brother Substance abuse Cancer Son No problems noted. Daughter No problems noted. Social History Smoking/Tobacco Use Status: Former Tobacco Use Quit Date: 03/14/12 Tobacco: How many years used: 50 Smoking risk assessment performed?: Yes Alcohol Intake: never Drug use: Never Substance use type: does not use Household members: other Details: 4 Housing: house Pets and animals: Yes Pets and animals: cat(s) and dog(s) Current gender identity: decline to answer What is your relationship status?: refused to answer How often do you talk on the phone with friends or family?: decline to answer How often do you get together with friends or relatives?: decline to answer How often do you attend buddhism or synagogue services?: decline to answer Do you belong to any clubs or organized social groups?: decline to answer Panel score (0-1 are the most socially isolated patients): 0 What type of physical activity do you participate in: none Lelo/Adventism: No preference Special lelo needs: No Do you feel safe at home: Yes Do you feel safe in your relationship?: Yes Time Spent with Patient Time Spent with Patient: 70-84 minutes4 Time was spent: preparing to see the patient(eg.review tests), ordering medications,tests, procedures, referring, communicating with other health long term care social worker, indepentently interpreting results, counseling the patient and care coordination
--- NOTE | 2023-01-10 18:46 | PDOC.HHF2F_ITS ---
Home Health Referral Home Health Orders Clinical synopsis of why skilled professionals are needed: UtI treated with Ceftriaxone followed by one dose of oral Fosfomycin, Atrial fibrillation with RVR HR up to 133, digoxin level 0.3, adjusting dosage to goal 0.9 to 2.0 The patient will need UA and digoxin level on 01/17 with results to PCP Dr. Salinas PT to continue global strengthening Registered Nurse: Check all that apply Instruct on new or changed medication(s)/assess compliance: Ordered Other: Adjusting digoxin dosing and f/u on UTI Draw labs Digoxin level on 01/17/2023/ UA due for 01/17/[address] Salinas Physical Therapist: Check all that apply Increase strength & endurance for safe mobility at home: Ordered To design/establish home maintenance program: Ordered Fall reduction therapy program for patient with history of frequent falls: Ordered Home safety evaluation and teaching/gait training including stair management (if applicable): Ordered Better Breathing Program: Ordered Occupational Therapist: Evaluate and treat for patient unable to perform ADL/IADL/self-care: Ordered Engagement Director: Assist with community resources: Ordered Assist with assistant terminal manager care planning: Ordered Home Bound Status Requires the aid of supportive device (check all that apply): Walker Patient has a condition such that leaving home is medically contraindicated (Describe): Becomes hypoxic quickly with any exertion Encounter Date and Reason: I certify that a FTF encounter for this patient was performed on January 10, 2023 and that such encounter was related to the primary reason the patient requires home health services. The encounter was conducted in the following manner: * By me as the certifying physician, FACILITY ADMINISTRATOR, PA or * By an inpatient physician, FACILITY ADMINISTRATOR or PA during an inpatient stay who communicated findings to me, Certification And Authentication I certify that I composed the above information based on my clinical judgment relating to this patient's medical condition and, if applicable, clinical findings communicated to me by the NPP or inpatient physician who performed the FTF encounter. Name of Provider that will be monitoring home health services: Carolin Salinas
== END 2023-01-10 19:30 | disposition home health service (06) | DRG 690 ==
LOC: ER 11:25 → MS 17:24
PROVIDERS: Nurse Practitioner Acute Care; Nurse Practitioner Family; Admitting Provider Family Medicine; Emergency Provider Physician Assistant; PCP Family Medicine; Visit Provider Family Medicine
DX: N39.0 Urinary tract infection, site not specified (principal); I50.32 Chronic diastolic (congestive) heart failure; F32.3 Major depressive disorder, single episode, severe with psychotic features; K55.1 Chronic vascular disorders of intestine; I47.10 Supraventricular tachycardia, unspecified; I48.91 Unspecified atrial fibrillation; J44.9 Chronic obstructive pulmonary disease, unspecified; I11.0 Hypertensive heart disease with heart failure; R53.1 Weakness; Z66 Do not resuscitate; F41.9 Anxiety disorder, unspecified; I25.10 Atherosclerotic heart disease of native coronary artery without angina pectoris; B96.89 Other specified bacterial agents as the cause of diseases classified elsewhere; K76.0 Fatty (change of) liver, not elsewhere classified; I65.22 Occlusion and stenosis of left carotid artery; E78.5 Hyperlipidemia, unspecified; W18.30XA Fall on same level, unspecified, initial encounter; Z87.891 Personal history of nicotine dependence; I27.20 Pulmonary hypertension, unspecified; Z86.73 Personal history of transient ischemic attack (TIA), and cerebral infarction without residual deficits; Z90.49 Acquired absence of other specified parts of digestive tract; Z79.01 Long term (current) use of anticoagulants; Z98.0 Intestinal bypass and anastomosis status
CPT/HCPCS: 00123; 36415; 80048; 80053; 84145; 87040; 87077; 87493; 87635; 93005; 94640; 96360; 96365; 97110; 97162; 99285; 71046; 74177; 80162; 81003; 81015; 83605; 83735; 85025; 87086; 87186; 93010; 94664; 94760; 99222; 99233; 99239; J3490

== ENCOUNTER 2023-01-17 15:04 | Outpatient (REF) | payer MEDICARE, SELFPAY ==
[2023-01-17 15:28] LABS: Bilirubin Negative (Negative); Blood Negative (Negative); Clarity Clear (Clear); Glucose Negative (Negative); Ketones Negative (Negative); Leukocyte Esterase Negative (Negative); Nitrite Negative (Negative); Specific Gravity <= 1.005 (1.005-1.025); Urobilinogen 0.2 mg/dL (Up to 0.2); pH 5.5 (5-8)
[2023-01-17 15:58] LABS: Digoxin 0.87 ng/mL (0.90-2.00)
== END 2023-01-17 15:05 | disposition home or self-care (01) ==
LOC: LBN 15:04
PROVIDERS: PCP Family Medicine; Visit Provider Family Medicine
DX: I48.20 Chronic atrial fibrillation, unspecified (principal); I11.0 Hypertensive heart disease with heart failure; N39.0 Urinary tract infection, site not specified
CPT/HCPCS: 80162; 81003

== ENCOUNTER 2023-01-23 15:05 | Emergency (ER) | payer MEDICARE, SELFPAY ==
[2023-01-23] VITALS (31 sets, daily range): BP systolic 94–138; BP diastolic 24–80; PULSE 56–87; RESP 14–24; TEMP 36.3; O2SAT 90–96
--- NOTE | 2023-01-23 15:00 | RT.EKG_ITS ---
APPROVED REPORT Exam: Resting ECG Reason for Exam: low b/p Patient Location: E HR:59 bpm ECG Measurements Heart Rate 59 AXIS FL [id number] P [id number] QRSd 108 QRS 69 QT [id number] T 91 QTc 0 Conclusion Atrial fibrillation...V-rate 47- 66, irreg A-activity Nonspecific T abnormalities, lateral leads...T <-0.10mV, I aVL V5 V6 Normal axis, Twave inversion V6 with T wave flattening in V$-V6. No STEMI, no significant change from previous.
--- NOTE | 2023-01-23 15:30 | DI.RAD_ITS ---
Exam(s) XR PORTABLE CHEST AP EXAM: XR PORTABLE CHEST AP CLINICAL HISTORY: SOB. TECHNIQUE: 2D digital imaging was performed. COMPARISON: CR,XR XR CHEST 2V PA LATERAL from 01/08/2023 FINDINGS: Single AP portable view. Cardiomegaly again noted. Mediastinum not widened. Pulmonary venous hypertension pattern noted but no eleazar airspace pulmonary edema and there are no pleural effusions. No pneumothorax. No fractures evident. IMPRESSION: As above, without significant radiographic change compared to 01/08/2023. DATA REPOSITORY: RADIATION DOSE DELIVERED:
[2023-01-23] MEDS: Furosemide 20 MG/2 ML VIAL IVP (15:57)
[2023-01-23 16:05] LABS: Abs Immature Grans 0.02 10^3/uL (0.0-0.06); Absolute Basophil Count 0.03 10^3/uL (0.0-0.2); Absolute Eosinophil Count 0.06 10^3/uL (0.0-0.7); Absolute Monocyte Count 0.81 10^3/uL (0.1-0.8); Absolute Neutrophil Count 5.42 10^3/uL (1.2-6.7); Basophils % 0.4; Eosinophils % 0.8; HCT 41.9 % (36.0-46.0); HGB 13.9 g/dL (11.2-15.7); Immature Grans % 0.3; MCH 29.6 pg (27.0-33.0); MCHC 33.2 % (32.0-36.0); MCV 89 fL (80-95); MPV 10.1 fL (8.0-11.0); Monocytes % 10.6; Neutrophils % 70.9; Platelet Count 208 10^3/uL (130-400); RBC 4.69 10^6/uL (3.93-5.22); RDW 14.1 % (11.7-14.6); RDW-SD 45.5 fL; WBC 7.64 10^3/uL (4.4-10.8)
[2023-01-23 16:07] LABS: Bilirubin Negative (Negative); Blood Negative (Negative); Clarity Clear (Clear); Glucose Negative (Negative); Ketones Negative (Negative); Leukocyte Esterase Negative (Negative); Nitrite Negative (Negative); Urobilinogen 0.2 mg/dL (Up to 0.2); pH 6.5 (5-8)
[2023-01-23 16:17] LABS: INR 1.2 (0.9-1.1); PTT Activated 26.6 sec (23.6-32.8); Prothrombin Time 11.5 sec (9.1-11.1)
[2023-01-23 16:23] LABS: ALT 23 U/L (14-59); AST 17 U/L (15-37); Albumin 3.2 g/dL (3.4-5.0); Alkaline Phosphatase 69 U/L (46-116); Anion Gap 7.4 mmol/L (3-11); BUN 11 mg/dL (7-18); Bilirubin, Total 1.1 mg/dL (0.2-1.0); CO2 30.6 mmol/L (21.0-32.0); Chloride 95 mmol/L (98-107); Digoxin 1.13 ng/mL (0.90-2.00); Glucose 106 mg/dL (74-106); Potassium 3.5 mmol/L (3.5-5.1); Sodium 133 mmol/L (136-145); Total Protein 6.3 g/dL (6.4-8.2); Troponin I < 50 ng/L (<or=60)
[2023-01-23 16:40] LABS: NT-proBNP 3812 pg/mL (<300)
[2023-01-23 16:51] LABS: COVID-19 PCR Negative (Negative); Influenza A PCR Negative (Negative); Influenza B PCR Negative (Negative); RSV PCR Negative (Negative)
[2023-01-23 16:58] LABS: Source Nasopharynx
--- NOTE | 2023-01-23 17:08 | DI.VRAD_ITS ---
PROCEDURE INFORMATION: Exam: XR Chest Exam date and time: 01/23/2023 4:49 PM Age: 82 years old Clinical indication: Shortness of breath TECHNIQUE: Imaging protocol: Radiologic exam of the chest. Views: 1 view. COMPARISON: CR XR CHEST 2V PA LATERAL 01/08/2023 2:01 PM FINDINGS: Lungs: Unremarkable. No consolidation. Pleural spaces: Unremarkable. No pleural effusion. No pneumothorax. Heart/Mediastinum: Unremarkable. No cardiomegaly. Vasculature: Aortic calcifications. Bones/joints: Unremarkable. IMPRESSION: No acute findings Dictated and Authenticated by: Eileen Harris MD. Ordering:SENTHIL Pleitez MD
--- NOTE | 2023-01-23 17:53 | W.ED.GENAD ---
Discharge Plan Disposition Patient Disposition: Home Condition: Improving Discharge Details Clinical Impression: Breath shortness, Congestive heart failure (CHF) Primary Care Provider: Carolin Salinas ED Provider: Pricilla Shin Home Meds and New Rx's Prescriptions: No Action magnesium oxide 400 mg (241.3 mg magnesium) tablet 400 mg PO DAILY Qty: 90 5RF risperidone [Risperdal] 2 mg tablet 2 mg PO HS Qty: 90 5RF sertraline 50 mg tablet 50 mg PO DAILY Qty: 90 5RF trazodone 100 mg tablet 100 mg PO HS Qty: 90 5RF risperidone [Risperdal] 0.5 mg tablet 0.5 mg PO BID protein [Ensure High Protein] Powder 1 pwd PO DAILY Qty: 480 4RF Lactobacillus acidophilus 1 EACH tablet 1 ea PO BID Ensure High Protein Liquid 237 ml PO BID Qty: 99655 12RF Rx Instructions: dispense 60 cans potassium chloride [Klor-Con M20] 20 mEq tablet,ER particles/crystals 20 meq PO BID Qty: 180 5RF lorazepam 0.5 mg tablet 0.5 mg PO TID PRN Qty: 270 4RF Eliquis 5 mg tablet 5 mg PO BID Qty: 180 5RF digoxin 125 mcg (0.125 mg) tablet 0.25 mg PO DAILY Qty: 180 1RF acetaminophen [Tylenol] 325 MG tablet 650 mg PO Q8H PRN PRN fluticasone propion-salmeterol [Advair Diskus] 500-50 mcg/dose blister with device 1 inh INHALATION BID Patient Comments: INHALE 1 PUFF BY MOUTH TWO TIMES A DAY albuterol sulfate 90 mcg/actuation HFA aerosol inhaler 2 puff INHALATION Q4H PRN Patient Comments: INHALE 2 PUFFS BY MOUTH EVERY 4 HOURS NEEDED FOR SHORTNESS OF BREATH Discharge Instructions Instructions: Heart Failure (ED), Dyspnea (ED) Additional Instructions: 1. Call your mother's primary care provider in the morning and tell them you brought your mother into the emergency department for shortness of breath and she found to be in slightly worse heart failure than her usual baseline. Tell them we gave her 20 mg of IV Lasix and she put out 500 mL of urine that did not show an infection. Tell them that you have a prescription for Lasix (furosemide). Read how many milligrams are on the prescription bottle and ask her doctor whether she wants to restart it and at what dose and how often. 2. According to your mother's advanced directives she did not want to be transferred to the hospital. We are happy to see her but make sure that her home health care providers are aware of your mother's wishes so that everyone is on the same page. You may of course bring her back for any reasons or concerns, but we would like to comply with her wishes. Discharge Data Discharge Date/Time-TO BE ENTERED AT DEPARTURE: 01/23/23 18:53 Discharge Physician: Pricilla Shin Medical Decision Making This is an 82-year-old female with a history of low blood pressure who recently had Lasix discontinued at her last admission. She had a low blood pressure at home and was advised to come in by home health nursing despite the fact that her advanced directive says she does not want to be transferred to the hospital. On exam she has bibasilar rales and is requiring oxygen here. Her EKG shows atrial fibrillation with bradycardic rate. My plan is to obtain blood work including a CBC, comprehensive metabolic panel BNP troponin and EKG. I will also obtain a chest x-ray. We will also check a urine for infection and if needed cover her for antibiotics. She may require admission if she requires supplemental oxygen. She is denying any chest pain currently. We will also check COVID RSV and influenza Differential Diagnosis Differential Diagnosis: CHF, pneumonia, viral illness Medical Records Medical records reviewed: Yes I reviewed the patient's medical records. Imaging Data Radiologic Study: Imaging: X-Ray (Chest x-ray) Radiologist's impression: V rad impression: No acute findings. HPI General Date/Time Provider Initiated Documentation: 01/23/23 15:07. HPI Narrative: Time seen was 1515 in bed 1. The patient is an 82-year-old female brought in by her daughter for a low blood pressure at home 1 reading was 71/45 and another was 84/53. 2 weeks ago the patient was admitted here for low blood pressure which was felt secondary to a urinary tract infection. She was in the hospital for 3 days and received IV antibiotics but was not discharged on antibiotics. The patient does have a history of atrial fibrillation and is on digoxin and apixaban. The patient was on Lasix and tell her last hospitalization and it was discontinued. She does have a history of congestive heart failure. She received a flu and COVID-vaccine 5 days ago. Yesterday she had decreased appetite and today she was sleepier than usual. She denies any shortness of breath. She has been told by her primary care provider that her sats should stay above 88%. The patient does use Advair and albuterol. The patient is denying any shortness of breath cough or fever although she has felt warm to the touch. She is complaining of some mild lower back pain bilaterally. She has not had cough. She has chronic mild swelling of her lower extremities which is unchanged. She does have an advanced directive that states she does not want intubation or CPR. It even mentions that she does not want to be transferred to the hospital. The patient's daughter states that it was a home health nurse who advised her to come in. The patient does not use oxygen at home. Because the patient's blood pressure was low during the last admission she had her Lasix discontinued. Related Data Home Medications Medication Instructions Recorded Confirmed acetaminophen 325 mg tablet 650 mg PO Q8H PRN PRN 08/10/14 01/23/23 (Tylenol) Lactobacillus acidophilus 1 1 ea PO BID 03/11/15 01/18/23 billion cell tablet fluticasone 500 mcg-salmeterol 50 1 inh inhalation BID 06/04/22 01/18/23 mcg/dose blistr powdr for inhalation (Advair Diskus) magnesium oxide 400 mg (241.3 mg 400 mg PO DAILY #90 tabs 06/29/22 01/23/23 magnesium) tablet risperidone 2 mg tablet (Risperdal) 2 mg PO HS #90 tabs 06/29/22 01/23/23 sertraline 50 mg tablet 50 mg PO DAILY #90 tabs 06/29/22 01/23/23 trazodone 100 mg tablet 100 mg PO HS #90 tabs 06/29/22 01/23/23 Ensure High Protein (food 237 ml PO BID low albumin; 06/30/22 01/18/23 supplemt, lactose-reduced) malnutrition #14,220 mL protein (Ensure High Protein oral 1 pwd PO DAILY low albumin, 08/12/22 01/18/23 powder) hypotension, calorie malnutrition #480 grams risperidone 0.5 mg tablet 0.5 mg PO BID 08/12/22 01/23/23 (Risperdal) potassium chloride 20 mEq 20 meq PO BID #180 tabs 12/27/22 01/23/23 tablet,extended release(part/cryst) (Klor-Con M) apixaban 5 mg tablet (Eliquis) 5 mg PO BID #180 tabs 01/03/23 01/23/23 lorazepam 0.5 mg tablet 0.5 mg PO TID PRN anxiety #270 tabs 01/03/23 01/23/23 albuterol sulfate 90 mcg/actuation 2 puff inhalation Q4H PRN 01/08/23 01/23/23 aerosol inhaler digoxin 125 mcg (0.125 mg) tablet 0.25 mg (2 x 125 mcg (0.125 mg)) 01/21/23 01/23/23 PO DAILY #180 tabs Previous Rx's Medication Instructions Recorded magnesium oxide 400 mg (241.3 mg 400 mg PO DAILY #90 tabs 06/29/22 magnesium) tablet risperidone 2 mg tablet (Risperdal) 2 mg PO HS #90 tabs 06/29/22 sertraline 50 mg tablet 50 mg PO DAILY #90 tabs 06/29/22 trazodone 100 mg tablet 100 mg PO HS #90 tabs 06/29/22 Ensure High Protein (food 237 ml PO BID low albumin; 06/30/22 supplemt, lactose-reduced) malnutrition #14,220 mL protein (Ensure High Protein oral 1 pwd PO DAILY low albumin, 08/12/22 powder) hypotension, calorie malnutrition #480 grams potassium chloride 20 mEq 20 meq PO BID #180 tabs 12/27/22 tablet,extended release(part/cryst) (Klor-Con M) apixaban 5 mg tablet (Eliquis) 5 mg PO BID #180 tabs 01/03/23 lorazepam 0.5 mg tablet 0.5 mg PO TID PRN anxiety #270 tabs 01/03/23 digoxin 125 mcg (0.125 mg) tablet 0.25 mg (2 x 125 mcg (0.125 mg)) 01/21/23 PO DAILY #180 tabs Allergies Allergy/AdvReac Type Severity Reaction Status Date / Time pneumococcal 7-valent Allergy Mild Local Verified 01/23/23 15:19 conjugate to reaction [From Prevnar] amoxicillin trihydrate AdvReac Intermediate VOMITING Verified 01/23/23 15:19 [From Augmentin] potassium clavulanate AdvReac Intermediate VOMITING Verified 01/23/23 15:19 [From Augmentin] General Stated Complaint: GenMedical DEONNA: 3 Review of Systems Narrative: see hpi PFSH All Active Problems Congestive heart failure (CHF) (Chronic) Breath shortness (Acute) Aminah onychomycosis (Acute) Depression (Chronic) a. 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 Positive neutrophil AB mostlikely indicating ulcerative colitis Anxiety (Chronic 07/25/17) Coronary disease (Chronic) COPD (chronic obstructive pulmonary disease) (Chronic) Hypertension (Chronic) SCHAEFFER (nonalcoholic steatohepatitis) (Chronic) H/O inflammatory bowel disease (Chronic) Medical History Acute hypoxemic respiratory failure Acute and chronic respiratory failure with hypoxia Conjunctivitis Right hip pain Cognitive change RUQ abdominal pain Weight loss, abnormal (~06/11/21) 30# in last yr Bradycardia Encounter for monitoring diuretic therapy Pulmonary hypertension Congestive heart failure Tachycardia Bruit Disorder of adrenal gland Disorder of appendix (12/07/12) Elevated serum lactate dehydrogenase (LDH) History of tobacco use Palpitations Seborrheic keratosis (01/01/16) Vascular insufficiency of intestine (06/12/15) 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 02/18-09/19, normal metanephrines, normal dexamethasone suppression. History of tobacco use 100pack/years Bruit of left carotid artery mild-mod. 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 hypokalemia b. hypomagnesemia Surgical History History of bilateral ligation of fallopian tubes History of partial surgical removal of colon (09/15/14) Status post appendectomy History of partial colectomy 09/15/14 right hemicolectomy w/ileocolic anastomosis Ligation of fallopian tube Hemicolectomy [facility]; 09/15/14; RIGHT Colectomy (09/18/14) DR. GRAJEDA Biopsy, Soft Tissue (01/01/16) Punch/shave biospy of skin of left arm, seborrheic keratosis Appendectomy S/P tubal ligation S/P AAA repair Family History Mother Essential hypertension Alzheimer's disease Father Heart disease Breast cancer Prostate cancer Sister Myocardial infarction Sister Myocardial infarction Brother Cancer Sister No problems noted. Sister No problems noted. Brother Substance abuse Brother Substance abuse Brother Substance abuse Cancer Son No problems noted. Daughter No problems noted. Social History Smoking/Tobacco Use Status: Former Tobacco Use Quit Date: 03/14/12 Tobacco: How many years used: 50 Smoking risk assessment performed?: Yes Alcohol Intake: never Drug use: Never Substance use type: does not use Household members: other Details: 4 Housing: house Pets and animals: Yes Pets and animals: cat(s) and dog(s) Current gender identity: decline to answer What is your relationship status?: refused to answer How often do you talk on the phone with friends or family?: decline to answer How often do you get together with friends or relatives?: decline to answer How often do you attend evangelical or presybeterian services?: decline to answer Do you belong to any clubs or organized social groups?: decline to answer Panel score (0-1 are the most socially isolated patients): 0 What type of physical activity do you participate in: none Lelo/Episcopal: No preference Special lelo needs: No Do you feel safe at home: Yes Do you feel safe in your relationship?: Yes Exam Narrative Exam Narrative: The patient is a well-developed well-nourished 82-year-old in no acute distress. She appears to have some mild tardive dyskinesia of her lips. She has no stridor and is handling secretions. She has normal phonation. She appears to have slightly labored respirations but her daughter states this is normal. Const General: cooperative, healthy appearing, comfortable, no acute distress, well developed, well groomed and well hydrated Nutritional Appearance: average body habitus and well nourished Orientation: alert, awake and oriented x3 Other: The patient is alert and oriented x4 [facility] Head: normal to inspection, normocephalic and atraumatic Ears: hearing grossly normal bilaterally and external ears normal General nose exam: external nose normal, nares normal and no nasal discharge Face and sinus: normal facial exam, sinuses nontender and face symmetric Mouth: oral mucosae normal, lip normal, tongue normal, oropharynx normal, moist mucous membranes and other (Normal phonation. The patient is handling secretions.) Teeth and gingiva: other (The patient is edentulous. No evidence of buccal cellulitis. No stridor. ) Throat: posterior oropharynx normal and uvula midline Eyes General: appearance normal, both eyes and all related structures Eyelids: eyelids normal Conjunctivae: conjunctivae normal Sclera: sclerae normal Cornea: corneas normal Pupils: PERRL EOM: EOM intact bilaterally and No nystagmus Other: No photophobia Neck Neck: normal visual inspection, full ROM, no lymphadenopathy, no meningeal signs, trachea midline and supple Lymphatic: no lymphadenopathy noted Other: No DVT Chest Chest: normal inspection of the chest Resp Effort & Inspection: normal respiratory effort, able to speak in complete sentences, no audible wheezes, no nasal flaring, no respiratory distress, no retractions, no stridor, not tachypneic, no tracheal deviation, no use of accessory muscles, No prolonged expiratory phase and other (Normal inspiratory to expiratory ratio.) Auscultation: clear to auscultation bilaterally, rales bilaterally (Bibasilar rales long-term up) 1/[address] up, no rhonchi, no wheezes and no rubs Tactile Fremitus: tactile fremitus absent Cardio Jugular venous pressure: no JVD Palpation: normal PMI Rate: bradycardic Rhythm: abnormal rhythm irregularly irregular Heart Sounds: S1 normal, S2 normal, no gallops, no murmurs and no rubs GI Inspection: normal to inspection and non-distended Palpation: soft, no hepatosplenomegaly, no guarding and nontender Percussion: normal to percussion Auscultation: normal bowel sounds Other: The patient has a well-healed surgical scar in the midline General: No CVA tenderness Back/Spine/Pelvis Back: no CVA tenderness and No back tenderness Cervical Spine: normal cervical lordosis, cervical ROM normal, No cervical muscular tenderness, No pain with cervical ROM, No cervical spinal tenderness and No step off deformity Thoracic/Lumbar Spine: thoracic and lumbar spine normal to inspection, No thoracic spinal tenderness and No lumbar spinal tenderness Pelvis: no pain with anterior-posterior compression and no pain with lateral compression Skin General skin exam: no rashes or lesions noted, turgor normal, no petechiae, no purpura and other (The patient appears slightly pale for ethnicity) Lesions: no lesions Rashes: no rashes Trauma: no lacerations or abrasions Neuro General: patient alert, patient awake, patient oriented x3, moves all extremities, no meningeal signs, no focal motor deficits and CN's II-XI intact bilaterally Cranial Nerves: CN's II-XI intact bilaterally, PERRL, accommodation normal, EOM intact bilaterally, no nystagmus, facial strength normal, tongue midline, hearing normal and no nystagmus Cognition: normal cognition Speech: speech normal Motor: muscle tone normal throughout and strength 5/5 throughout Sensory Exam: no sensory deficits noted Extrem General: normal to inspection, full ROM, capillary refill normal, no clubbing, cyanosis or edema and no calf tenderness Psych Appearance: grossly normal Affect: normal affect Attitude: cooperative Thought Process: normal Thought Content: normal Insight: insight good Judgment: judgment good Other: The patient appears to have capacity make medical decisions. Course 1802 p.m. the patient is put out 500 mL of urine after Lasix. The patient was on 2 L of nasal cannula which I have discontinued. The patient's daughter tells me that her doctor said if her oxygen is greater than 88% then no intervention is needed. I have reviewed her previous BMPs and they are always elevated although it is slightly more elevated today than previously. The patient has advanced directives that include not transporting to the hospital. 1824 PM I have removed the oxygen and the patient's O2 sat is between 87 and 89%. She has put out 500 mL of fluid. After shared decision-making with the daughter she would like to go home and follow-up with her primary care provider. She has a prescription for Lasix at home and will call her primary in the morning about restarting it. I have advised her to return here for any new or worrisome symptoms. The patient states she would like to go home. The patient's daughter voiced understanding agreement with the discharge plan. All her questions and concerns were addressed prior to discharge Vital Signs Vital signs: Vital Signs Temperature 36.3 C L 01/23/23 15:09 Pulse 70 01/23/23 15:09 Respiratory Rate 14 01/23/23 15:09 Blood Pressure 128/68 01/23/23 15:09 Pulse Oximetry 90 L 01/23/23 15:09 Temperature 36.3 C L 01/23/23 15:09 Temperature Source Tympanic 01/23/23 15:09 Pulse 70 01/23/23 15:09 Respiratory Rate 14 01/23/23 15:14 Respiratory Effort Normal 01/23/23 15:14 Respiratory Depth Normal 01/23/23 15:14 Respiratory Pattern Normal 01/23/23 15:14 Blood Pressure 128/68 01/23/23 15:09 Blood Pressure Position Supine 01/23/23 15:09 Pulse Oximetry 96 01/23/23 15:48 Oxygen Delivery Method Nasal Cannula 01/23/23 15:48 Oxygen Flow Rate 2 01/23/23 15:48 Lab/Test Results Lab/Test Results: 01/23/23 15:46 Urine - Cath Straight Urine Culture - Pending Laboratory Tests Range/Units 01/23/23 01/23/23 01/23/23 15:21 15:34 15:46 WBC (4.4-10.8) 10^3/uL 7.64 RBC (3.93-5.22) 10^6/uL 4.69 Hgb (11.2-15.7) g/dL 13.9 Hct (36.0-46.0) % 41.9 MCV (80-95) fL 89 MCH (27.0-33.0) pg 29.6 MCHC (32.0-36.0) % 33.2 RDW (11.7-14.6) % 14.1 Plt Count (130-400) 10^3/uL 208 MPV (8.0-11.0) fL 10.1 Immature Gran % 0.3 Neutrophils % 70.9 Lymphocytes % 17.0 Monocytes % 10.6 Eosinophils % 0.8 Basophils % 0.4 Nucleated RBC % (0.0-0.3) % 0.0 Absolute Neutrophils (1.2-6.7) 10^3/uL 5.42 Absolute Lymphocytes (1.2-3.4) 10^3/uL 1.30 Absolute Monocytes (0.1-0.8) 10^3/uL 0.81 H Absolute Eosinophils (0.0-0.7) 10^3/uL 0.06 Absolute Basophils (0.0-0.2) 10^3/uL 0.03 PT (9.1-11.1) sec 11.5 H INR (0.9-1.1) 1.2 H APTT (23.6-32.8) sec 26.6 Sodium (136-145) mmol/L 133 L Potassium (3.5-5.1) mmol/L 3.5 Chloride (98-107) mmol/L 95 L Carbon Dioxide (21.0-32.0) mmol/L 30.6 Anion Gap (3-11) mmol/L 7.4 BUN (7-18) mg/dL 11 Creatinine (0.55-1.02) mg/dL 1.0 Est GFR (CKD-EPI 2020) (mL/min/1.73m2) 55.90 Glucose (74-106) mg/dL 106 Calcium (8.5-10.1) mg/dL 9.0 Magnesium (1.8-2.4) mg/dL 2.0 Total Bilirubin (0.2-1.0) mg/dL 1.1 H AST (15-37) U/L 17 ALT (14-59) U/L 23 Alkaline Phosphatase (46-116) U/L 69 Troponin I (<or=60) ng/L < 50 NT-Pro-B Natriuret Pep (<300) pg/mL 3812 H Total Protein (6.4-8.2) g/dL 6.3 L Albumin (3.4-5.0) g/dL 3.2 L Urine Color (Yellow) Yellow Urine Clarity (Clear) Clear Urine pH (5-8) 6.5 Ur Specific [place] (1.005-1.025) 1.010 Urine Protein (Negative) mg/dL Negative Urine Ketones (Negative) mg/dL Negative Urine Blood (Negative) Negative Urine Nitrite (Negative) Negative Urine Bilirubin (Negative) Negative Urine Urobilinogen (Up to 0.2) mg/dL 0.2 Ur Leukocyte Esterase (Negative) Negative Urine Glucose (Negative) mg/dL Negative Digoxin (0.90-2.00) ng/mL 1.13 COVID-19 Source SARS-CoV-2 (PCR) (Negative) Influenza Type A (PCR) (Negative) Influenza Type B (PCR) (Negative) RSV (PCR) (Negative) Patient ABO/Rh O Positive Antibody Screen NEGATIVE Range/Units 01/23/23 16:06 WBC (4.4-10.8) 10^3/uL RBC (3.93-5.22) 10^6/uL Hgb (11.2-15.7) g/dL Hct (36.0-46.0) % MCV (80-95) fL MCH (27.0-33.0) pg MCHC (32.0-36.0) % RDW (11.7-14.6) % Plt Count (130-400) 10^3/uL MPV (8.0-11.0) fL Immature Gran % Neutrophils % Lymphocytes % Monocytes % Eosinophils % Basophils % Nucleated RBC % (0.0-0.3) % Absolute Neutrophils (1.2-6.7) 10^3/uL Absolute Lymphocytes (1.2-3.4) 10^3/uL Absolute Monocytes (0.1-0.8) 10^3/uL Absolute Eosinophils (0.0-0.7) 10^3/uL Absolute Basophils (0.0-0.2) 10^3/uL PT (9.1-11.1) sec INR (0.9-1.1) APTT (23.6-32.8) sec Sodium (136-145) mmol/L Potassium (3.5-5.1) mmol/L Chloride (98-107) mmol/L Carbon Dioxide (21.0-32.0) mmol/L Anion Gap (3-11) mmol/L BUN (7-18) mg/dL Creatinine (0.55-1.02) mg/dL Est GFR (CKD-EPI 2020) (mL/min/1.73m2) Glucose (74-106) mg/dL Calcium (8.5-10.1) mg/dL Magnesium (1.8-2.4) mg/dL Total Bilirubin (0.2-1.0) mg/dL AST (15-37) U/L ALT (14-59) U/L Alkaline Phosphatase (46-116) U/L Troponin I (<or=60) ng/L NT-Pro-B Natriuret Pep (<300) pg/mL Total Protein (6.4-8.2) g/dL Albumin (3.4-5.0) g/dL Urine Color (Yellow) Urine Clarity (Clear) Urine pH (5-8) Ur Specific [place] (1.005-1.025) Urine Protein (Negative) mg/dL Urine Ketones (Negative) mg/dL Urine Blood (Negative) Urine Nitrite (Negative) Urine Bilirubin (Negative) Urine Urobilinogen (Up to 0.2) mg/dL Ur Leukocyte Esterase (Negative) Urine Glucose (Negative) mg/dL Digoxin (0.90-2.00) ng/mL COVID-19 Source Nasopharynx SARS-CoV-2 (PCR) (Negative) Negative Influenza Type A (PCR) (Negative) Negative Influenza Type B (PCR) (Negative) Negative RSV (PCR) (Negative) Negative Patient ABO/Rh Antibody Screen Critical Care Time Critical Care Time Critical Care Time: Yes Total Critical Care Time: 62 Attestation: This includes time at the bedside, review of radiographs EKG and lab work as well as consultation with cardiology and discussion with the patient's daughter.
== END 2023-01-23 18:53 | disposition home or self-care (01) ==
PROVIDERS: Emergency Provider Emergency Medicine Emergency Medical Services; PCP Family Medicine
DX: I95.9 Hypotension, unspecified (principal); I51.7 Cardiomegaly; I11.0 Hypertensive heart disease with heart failure; I50.32 Chronic diastolic (congestive) heart failure; E78.5 Hyperlipidemia, unspecified; J44.9 Chronic obstructive pulmonary disease, unspecified; Z90.49 Acquired absence of other specified parts of digestive tract; Z79.01 Long term (current) use of anticoagulants; Z20.822 Contact with and (suspected) exposure to COVID-19; I48.91 Unspecified atrial fibrillation
CPT/HCPCS: 80053; 86850; 86900; 86901; 87637; 93005; 96374; 99283; 71045; 80162; 81003; 83735; 83880; 84484; 85025; 85610; 85730; 87086; 93010; J1941

== ENCOUNTER 2023-02-02 19:22 | Outpatient (REF) | payer MEDICARE, SELFPAY | END 2023-02-02 19:23 | disposition home or self-care (01) | LOC: LBN 19:22 | PROVIDERS: PCP Family Medicine; Visit Provider Family Medicine | DX: I48.91 Unspecified atrial fibrillation (principal); I50.32 Chronic diastolic (congestive) heart failure | CPT/HCPCS: 80162 ==

== ENCOUNTER 2023-02-25 18:10 | Outpatient (REF) | payer MEDICARE, OTHER, SELFPAY ==
[2023-02-25 19:47] LABS: Digoxin 1.09 ng/mL (0.90-2.00)
== END 2023-02-25 18:11 | disposition home or self-care (01) ==
LOC: LBN 18:10
PROVIDERS: PCP Family Medicine; Visit Provider Family Medicine
DX: I50.9 Heart failure, unspecified (principal); Z51.81 Encounter for therapeutic drug level monitoring; Z79.899 Other long term (current) drug therapy
CPT/HCPCS: 80162

== ENCOUNTER → 2023-04-27 13:02 | Outpatient (BNVA) | payer MEDICARE, OTHER, SELFPAY | PROVIDERS: PCP Family Medicine; Referring Provider Family Medicine; Visit Provider Podiatrist | DX: B35.1 Tinea unguium (principal); L60.3 Nail dystrophy; M79.674 Pain in right toe(s); M79.675 Pain in left toe(s); L60.2 Onychogryphosis | CPT/HCPCS: 11721; 99213 ==

== ENCOUNTER 2023-05-18 16:43 | Outpatient (REF) | payer MEDICARE, OTHER, SELFPAY ==
[2023-05-18 13:30] LABS: Bilirubin Negative (Negative); Blood Trace-intact (Negative); Clarity Cloudy (Clear); Glucose Negative (Negative); Ketones Negative (Negative); Leukocyte Esterase Moderate (Negative); Nitrite Positive (Negative); Specific Gravity 1.015 (1.005-1.025); Urobilinogen 0.2 mg/dL (Up to 0.2)
[2023-05-18 13:38] LABS: Bacteria Moderate HPF (Negative); C & S Indicated? C&S Done As Ordered; Casts Negative LPF (Negative); Crystals Negative HPF (Negative); Epithelial Cells Few HPF (Negative); Mucus Negative (Negative); RBC 0-2 HPF (0-2); WBC >50 HPF (0-5)
== END 2023-05-18 16:44 | disposition home or self-care (01) ==
LOC: LBN 16:43
PROVIDERS: PCP Family Medicine; Visit Provider Family Medicine
DX: R82.998 Other abnormal findings in urine (principal); R39.81 Functional urinary incontinence; R41.0 Disorientation, unspecified
CPT/HCPCS: 87077; 81003; 81015; 87086; 87186

== ENCOUNTER 2024-04-11 19:42 | Outpatient (REF) | payer OTHER, SELFPAY ==
[2024-04-11 16:43] LABS: Digoxin 1.48 ng/mL (0.90-2.00)
== END 2024-04-11 19:43 | disposition home or self-care (01) ==
LOC: LBN 19:42
PROVIDERS: PCP Family Medicine; Visit Provider Family Medicine
DX: I50.9 Heart failure, unspecified (principal)
CPT/HCPCS: 80162

== ENCOUNTER 2024-07-20 08:55 | Inpatient (IN) | payer OTHER, SELFPAY ==
[2024-07-20 12:07] VITALS: BP 122/57; PULSE 92; RESP 16; TEMP 36.2; O2SAT 93
--- NOTE | 2024-07-20 12:41 | PHA.REVIEW2 ---
Pharmacy Admission Review Admission Clinical Review Admission Pharmacy Review: pneumococcal 7-valent conjugate to (From Prevnar) Allergy (Mild, Verified 05/22/24 13:01) Local reaction amoxicillin trihydrate (From Augmentin) Adverse Reaction (Intermediate, Verified 05/22/24 13:01) VOMITING potassium clavulanate (From Augmentin) Adverse Reaction (Intermediate, Verified 05/22/24 13:01) VOMITING Resuscitation Status DNR/DNI Comments Comments/Follow Ups: Hospice Respite Pharmacy Admission Review Renal Dosing Medications needing adjustments: N/A (No weight or height in patients chart) Anticoagulation DVT Prophylaxis: N/A Opiate Usage Evaluate Pain Scale/Pains Meds: Reviewed (has order for morphine oral concentration q1h PRN - no doses given) Scheduled Bowel Reg ordered if on Opiates?: Yes (Senna HS + PRN bisacodyl) Relevant Labs Electrolytes, C-Reactive P, ESR: N/A (hospice - no labs) Cardiac Review BP, HR, EF%: Reviewed (BP 122/57, HR 92) QTc Review QTc: Reviewed (471 from 01/08/23 - most recent EKG in patients file) IV to PO Switch IV Medications: Reviewed (no IV orders) Home Meds Home Med List reviewed: Intervened Relevent Home Meds Not ordered & why?: Verified risperidone dose with Dr. Harrison. Takes 0.5mg in the morning and 2mg at bedtime. Current Meds Current Medication Order Review: Reviewed Comments Comments/Follow Ups: Hospice Respite
--- NOTE | 2024-07-20 13:04 | W.PC.ACHO ---
Registration Status: Primary Language: Preferred Language: Medical / Surgical History (Last Reviewed 04/27/23 @ 13:23 by Alisha Rhodes DPM) Acute hypoxemic respiratory failure Acute and chronic respiratory failure with hypoxia Conjunctivitis Right hip pain Cognitive change RUQ abdominal pain Weight loss, abnormal (~06/11/21) Bradycardia Encounter for monitoring diuretic therapy Pulmonary hypertension Congestive heart failure Tachycardia Bruit Disorder of adrenal gland Disorder of appendix (12/07/12) Elevated serum lactate dehydrogenase (LDH) History of tobacco use Palpitations Seborrheic keratosis (01/01/16) Vascular insufficiency of intestine (06/12/15) Disorder of adrenal gland History of tobacco use Bruit of left carotid artery Disorder of appendix Essential (primary) hypertension Weight loss (04/02/14) Urinary frequency (08/21/15) Shortness of breath (10/14/16) Seborrheic keratosis (01/01/16) Right pontine CVA Palpitations 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) Increased body mass index Hyperlipidemia Hiatus hernia syndrome Elevated LDH Diarrhea (11/19/14) Complete edentulism, unspecified Atherosclerosis Arm skin lesion, left (12/09/15) Abdominal aortic aneurysm (05/31/12) Ischemic bowel disease Dependence on supplemental oxygen CVD (cardiovascular disease) Atherosclerosis COPD (chronic obstructive pulmonary disease) with emphysema SVT (supraventricular tachycardia) (09/15/14) Electrolyte imbalance (09/15/14) (Last Reviewed 04/27/23 @ 13:23 by Alisha Rhodes DPM) History of bilateral ligation of fallopian tubes History of partial surgical removal of colon (09/15/14) Status post appendectomy History of partial colectomy Ligation of fallopian tube Hemicolectomy Colectomy (09/18/14) Biopsy, Soft Tissue (01/01/16) Appendectomy S/P tubal ligation S/P AAA repair Most Recent Vital Signs Temperature 36.2 C L 07/20/24 12:07 Temperature Source Temporal Artery Scan 07/20/24 12:07 Pulse 92 H 07/20/24 12:07 Respiratory Rate 16 07/20/24 12:07 Blood Pressure 122/57 L 07/20/24 12:07 Blood Pressure Mean 78 07/20/24 12:07 Pulse Oximetry 93 07/20/24 12:07 Oxygen Delivery Method Room Air 07/20/24 12:07 Oxygen Flow Rate 0 07/20/24 12:07 Pain Level 0 07/20/24 12:07 Allergies pneumococcal 7-valent conjugate to (From Prevnar) Allergy (Mild, Verified 05/22/24 13:01) Local reaction amoxicillin trihydrate (From Augmentin) Adverse Reaction (Intermediate, Verified 05/22/24 13:01) VOMITING potassium clavulanate (From Augmentin) Adverse Reaction (Intermediate, Verified 05/22/24 13:01) VOMITING Active Medications Generic Name Dose Route Start Last Admin Trade Name Freq PRN Reason Stop Dose Admin Lorazepam 1 mg 07/20/24 12:00 07/20/24 12:14 Lorazepam 1 Mg Tab PO Not Given BID@0800,1200 [facility] Diet Orders Category Date Time Status Regular/Normal [DIET] Nutrition 07/20/24 Lunch Active Intake and Output - 24 Hour Total 07/20/24 thru 07/20/24 13:02 Intake Total 480 Balance 480 Weight 55.429 kg Intake: Oral 480 v v v v v v v v v Sending and/or Receiving Nurses: Please use comment section below to note any information pertinent to the patient hand-off not included above. Information / Comments: Report received from: patient direct admit from home, here for respite care, no report received. Patient arrived around 1210 with daughter Mimi. General report/update received from her, POC discussed with MD Harrison at bedside with family at this time as well
--- NOTE | 2024-07-20 13:04 | W.PM.HP.N ---
Date of service: 07/20/24 Time of Service: 12:00 Assessment and Plan Assessment and plan (1) Unintentional weight loss: Status: Chronic Assessment and plan: Primary reason she is on hospice. Down 25 lbs since admitted to hospice. Maximal weight in Dr Salinas's chart was 199 in 2016. Mimi says she eats most of what she serves her. Does have nutritional supplement drinks. Continue with regular diet. (2) Frequent falls: Status: Acute Assessment and plan: It may be time to stop her abipixiban forever. She does have chronic afib, but she has fallen a few times this year and is at risk for a subdural or other brain bleed. Will defer to her PCP, who has cared for her for many years. (3) Admission for hospice care: Status: Acute Assessment and plan: She is on respite status. Planned discharge is on 07/25. Tatianna Tao NP will be discharging her. I wrote Mimi's phone number on Deb's white board. We should only call her in case of emergency. (4) Congestive heart failure (CHF): Status: Chronic Assessment and plan: Known problem. Was her initial hospice diagnosis, after admission for same. No changes made to meds on this admission, except holding apixiban for now, (5) Breath shortness: Status: Acute (6) Atrial fibrillation: Status: Chronic Assessment and plan: Chronic Has had holter monitors to show that she no longer returns to NSR. (7) Fatigue: Status: Chronic Assessment and plan: Chronic, ongoing. Used to have trouble falling asleep at night. No longer does. Thus, likely doesn't need trazodone, unless PCP finds it helpful in management of Deb's long standing bipolar. Defer to Dr Salinas. (8) Incontinence: Status: Chronic Assessment and plan: Of both urine and feces. Mimi attempts timed bathroom breaks. This works sometimes. History of Present Illness History of Present Illness Chief Complaint: hospice respite stay; d/c planned for 07/25/24 Narrative: Deb Merino is an 84 yo woman, usp patient of Dr Salinas, who was admitted on hospice in 02/03, 18 months ago. She has long outlived her initial 6 month prognosis. She is on hospice for unintentional weight loss and protein calorie malnutrition. She lives with her daughter, Mimi, who is her only caregiver. Sometimes other family members stay with her, but not overnight and not on a consistent basis. Mimi is long overdue for a respite stay for her mother. Deb has lost 25 lbs since coming on hospice, dropping from 147 to 122 lbs. Previously, she weighed as much as 199 lbs. She eats most of her meals. She does take nutritional drinks, such as ensure. Despite these interventions, her weight continues to drop. She is very sedentary, walking only within the house. She leaves home very rarely, only for doctor's appointments. She is in chronic afib. Her HR is controlled. Initially, her hospice diagnosis was for CHF. She does have cardiomegaly on imaging and a chronically elevated BNP, close to 4000 when last checked at time of hospice admission. Recently, she fell at home. She has fallen a few times in 2024. She did not have LOC. She is on a DOAC, apixiban, at 2.5 bid. She is at the crossroads where anti-coagulation is at greater risk of a subdural or other intracranial bleed than an embolic stroke. Will see what her PCP thinks. My suggestion is to stop it. Since her most recent fall, she has had trouble lifting her left leg up. It is hard for her to transfer into a car, or into the shower. Overall, she is sleeping more, eating less, needing help with all ADLs except feeding. She is incontinent of urine and feces. Given her sleepiness and lack of insomnia, ok to stop trazodone while here, to see if there she can sleep fine without it. Review of Systems Constitutional Constitutional: Reports fatigue, Reports frequent falls, Reports weakness and Reports weight loss Eyes Eyes: Reports change in vision ENT Ears, Nose, Mouth, and Throat: Reports hearing loss and Reports disequilibrium Cardiovascular Cardiovascular: Reports pedal edema, Reports leg edema, Reports dyspnea and Reports dyspnea on exertion Respiratory Respiratory: Reports dyspnea and Reports dyspnea on exertion Gastrointestinal Gastrointestinal: Reports fecal incontinence and Reports loose stools Genitourinary Genitourinary: Reports urinary incontinence Musculoskeletal Musculoskeletal: Reports abnormal gait, Reports atrophy, Reports loss of height and Reports muscle weakness Integumentary/Breasts Skin/Breast: Reports dry skin Neurologic Neurologic: Reports abnormal speech (speaks very little most of the time), Reports abnormal gait, Reports frequent falls, Reports disequilibrium and Reports weakness Psychiatric Psychiatric: Reports anxiety Endocrine Endocrine: Reports fatigue PFSH All Active Problems (Updated 07/20/24 @ 13:21 by Anna Harrison MD) Incontinence (Chronic) both urine and feces Fatigue (Chronic) Unintentional weight loss (Chronic) Frequent falls (Acute) Onychogryphosis (Acute) Pain in toes of both feet (Acute) Nail dystrophy (Acute) Onychomycosis (Acute) Admission for hospice care (Acute) Congestive heart failure (CHF) (Chronic) Breath shortness (Acute) Aminah onychomycosis (Acute) Depression (Chronic) a. 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 Positive neutrophil AB mostlikely indicating ulcerative colitis Anxiety (Chronic 07/25/17) Coronary disease (Chronic) COPD (chronic obstructive pulmonary disease) (Chronic) Hypertension (Chronic) SCHAEFFER (nonalcoholic steatohepatitis) (Chronic) H/O inflammatory bowel disease (Chronic) Medical History (Updated 07/20/24 @ 13:21 by Anna Harrison MD) SBO (small bowel obstruction) Cystitis Pneumonia Fever Acute hypoxemic respiratory failure Acute and chronic respiratory failure with hypoxia Conjunctivitis Right hip pain Cognitive change RUQ abdominal pain Weight loss, abnormal (~06/11/21) 30# in last yr Bradycardia Encounter for monitoring diuretic therapy Pulmonary hypertension Congestive heart failure Tachycardia Bruit Disorder of adrenal gland Disorder of appendix (12/07/12) Elevated serum lactate dehydrogenase (LDH) History of tobacco use Palpitations Seborrheic keratosis (01/01/16) Vascular insufficiency of intestine (06/12/15) 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 02/18-09/19, normal metanephrines, normal dexamethasone suppression. History of tobacco use 100pack/years Bruit of left carotid artery mild-mod. 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 hypokalemia b. hypomagnesemia Surgical History History of bilateral ligation of fallopian tubes History of partial surgical removal of colon (09/15/14) Status post appendectomy History of partial colectomy 09/15/14 right hemicolectomy w/ileocolic anastomosis Ligation of fallopian tube Hemicolectomy [facility]; 09/15/14; RIGHT Colectomy (09/18/14) DR. GRAJEDA Biopsy, Soft Tissue (01/01/16) Punch/shave biospy of skin of left arm, seborrheic keratosis Appendectomy S/P tubal ligation S/P AAA repair Family History Mother Essential hypertension Alzheimer's disease Father Heart disease Breast cancer Prostate cancer Sister Myocardial infarction Sister Myocardial infarction Brother Cancer Sister No problems noted. Sister No problems noted. Brother Substance abuse Brother Substance abuse Brother Substance abuse Cancer Son No problems noted. Daughter No problems noted. Social History (Updated 07/20/24 @ 13:24 by Anna Harrison MD) Smoking/Tobacco Use Status: Former Tobacco Use Quit Date: 03/14/12 Tobacco: How many years used: 50 Smoking risk assessment performed?: Yes Alcohol Intake: never Drug use: Never Substance use type: does not use Caregiver/Support person: Yes Household members: children Housing: house Number of Children: 2 Communication Needs: Hard of Hearing Do you need help understanding health information?: Always Pets and animals: Yes Pets and animals: cat(s) and dog(s) Current gender identity: decline to answer How often do you talk on the phone with friends or family?: never How often do you get together with friends or relatives?: twice per week Panel score (0-1 are the most socially isolated patients): 0 What type of physical activity do you participate in: none Lelo/Mandaen: No preference Special lelo needs: No Fire extinguisher in home: Yes Do you feel safe at home: Yes Do you feel safe in your relationship?: Yes Additional Social history: Deb lives with daughter Mimi, who is her health care agent. Mimi gets some support from hospice team, but provides majority of care. Meds Allergies and Home Medications Allergies Allergy/AdvReac Type Severity Reaction Status Date / Time pneumococcal 7-valent Allergy Mild Local Verified 05/22/24 13:01 conjugate to (From Prevnar) reaction amoxicillin trihydrate (From AdvReac Intermediate VOMITING Verified 05/22/24 13:01 Augmentin) potassium clavulanate (From AdvReac Intermediate VOMITING Verified 05/22/24 13:01 Augmentin) Home Medications ?Medication ?Instructions ?Recorded ?Confirmed ?Type acetaminophen 325 mg tablet 650 mg PO Q8H PRN PRN 08/10/14 07/20/24 History (Tylenol) Lactobacillus acidophilus 1 1 ea PO BID 03/11/15 07/20/24 History billion cell tablet protein (Ensure High Protein oral 1 pwd PO DAILY low albumin, 08/12/22 07/20/24 Rx powder) hypotension, calorie malnutrition #480 grams albuterol sulfate 90 mcg/actuation 2 puff inhalation Q4H PRN 01/08/23 07/20/24 History aerosol inhaler morphine concentrate 100 mg/5 mL 5 - 20 mg (0.25 - 1 mL) PO Q1-4H 01/26/23 07/20/24 Rx (20 mg/mL) oral solution PRN moderate to severe pain or shortness of breath #30 mL sertraline 50 mg tablet 50 mg PO DAILY #90 tabs 07/05/23 07/20/24 Rx apixaban 2.5 mg tablet 2.5 mg PO BID #180 tabs 01/31/24 07/20/24 Rx risperidone 0.5 mg tablet 0.5 mg PO BID #180 tabs 01/31/24 07/20/24 Rx (Risperdal) digoxin 125 mcg (0.125 mg) tablet 0.25 mg (2 x 125 mcg (0.125 mg)) 02/06/24 07/20/24 Rx PO DAILY #180 tabs ipratropium 0.5 mg-albuterol 3 mg 3 ml inhalation Q6H PRN wheezing 02/29/24 07/20/24 Rx (2.5 mg base)/3 mL nebulization #90 mL soln risperidone 1 mg tablet 1.5 mg (1.5 x 1 mg) PO HS #135 tabs 05/22/24 07/20/24 Rx trazodone 100 mg tablet 100 mg PO HS #90 tabs 05/22/24 07/20/24 Rx lorazepam 0.5 mg tablet 0.5 mg PO TID PRN anxiety #90 tabs 05/25/24 07/20/24 Rx Ensure High Protein (food 237 ml PO BID low albumin; 06/27/24 07/20/24 Rx supplemt, lactose-reduced) malnutrition #14,220 mL Exam Narrative Exam Narrative: Lying back in her recliner. Very quiet, says very little during my visit, Mimi (daughter) answers most questions for her. No signs of pain or discomfort. Eyes anicteric, non injected VS reviewed Heent hearing slightly diminished, mmm neck no lad or jvd lungs ctab, no increased wob heart irregularly irregular, normal rate abd well healed mid-line scar from xiphoid process to symphisis, + bs wnl ext left leg is slightly more swollen than right, no pitting edema, no pain to palpation of knee or ankle, no Zeyad's sign neuro speaks very little to me, makes good eye contact, appears to be following conversation for the most part psych no evidence of agitation skin no abrasions or lacerations noted to head or legs, no bruising noted Results Last Vital Signs Temp 97.2 F L 07/20/24 12:07 Pulse 92 H 07/20/24 12:07 Resp 16 07/20/24 12:07 BP 122/57 L 07/20/24 12:07 Pulse Ox 93 07/20/24 12:07 Time Spent Time spent with Patient: <40 minutes Time was spent: preparing to see the patient(eg.review tests), obtaining and/or reviewing separately otained hiistory, ordering medications,tests, procedures, referring, communicating with other health managed care liaison, counseling the patient (patient's family) and care coordination
--- NOTE | 2024-07-20 14:38 | CHAPLAIN ---
Deb has been a hospice patient for 18 months. She is cared for by her daughter Mimi, and here on respite so Mimi has a break as she is the only animal care attendant. Deb was sitting up in the chair when I visited. She was pleasant and responded intermittently to questions, and continued to smile and seemed to enjoy the interaction. I'll continue to visit.
--- NOTE | 2024-07-20 15:47 | PDOC.CMPRO ---
Date of service: 07/20/24 Time of Service: 15:47 Care Management Progress Note Progress Note Text Progress Note Text: Deb lives in [place] with her daughter Mimi and is admitted to [facility] for Hospice respite through 07/25/24. Deb was sitting in a recliner watching TV when CM met with her, communication was limited limited, although she did maintain good eye contact. Family will transport via private vehicle if mobility allows. CM will follow. Discharge Potential Discharge Needs: Other (Follow up with Hospice) Anticipated Barriers to Discharge: None Identified Patient/Family Education Needs: Review discharge instructions, discuss Ask Me Three Transportation: Private vehicle Plan: Deb is admitted for 5 days of hospice respite and will discharge back to her daughters home on Tuesday. Family will transport via private vehicle (possibly with a lift assist) if mobility allows. CM will follow. Social Determinants of Health Screening Will the Patient Participate in the Screening?: Declined to provide
--- NOTE | 2024-07-20 16:50 | NUR.NOTE ---
patient directly admitted by dtr via wheelchair around noon today, MD Harrison at bedside and examined pt. Patient here for respite care. AxOx2, pleasant and cooperative, dtr reports it is important to continue 0800 and 1200 ativan dosing. Patient has prn dose if need be. Tolerating liquids and diet, assisted to chair, mepilex placed on coccyx for precaution, no open wounds noted, no PIV access, patient able to stand with x1 assist and walker, incontinent of urine this shift, BM this AM per dtr. Patient is sitting in chair with chair alarm on. LLE with swelling noted, dtr reports this is new and spontaneous since Tuesday 07/18. MD Harrison is aware. Patient does not report pain, but is noted to have harder time moving that leg and is not as strong on the extremity. Chair alarm on, call davalos in reach. VSS. Nursing Note:
[2024-07-20] MEDS: risperiDONE 1 MG TAB 1.5 MG PO (19:53)
[2024-07-20] MEDS: Senna TAB PO (19:54)
[2024-07-20] MEDS: risperiDONE 0.5 MG TAB PO (19:54)
[2024-07-21 08:38] VITALS: PULSE 100
[2024-07-21] MEDS: Digoxin 0.125 MG TAB 0.25 MG PO (08:38)
[2024-07-21] MEDS: Protein Nutritional Supplement 16 GM 1 OUNCE PACKET PO (08:39)
[2024-07-21] MEDS: LORazepam 1 MG TAB PO ×2 (08:39→12:07)
[2024-07-21] MEDS: risperiDONE 0.5 MG TAB PO ×2 (08:39→20:03)
[2024-07-21] MEDS: Sertraline 50 MG TAB PO (08:39)
[2024-07-21] MEDS: risperiDONE 1 MG TAB 1.5 MG PO (20:03)
[2024-07-21] MEDS: Senna TAB PO (20:04)
[2024-07-22 08:39] VITALS: PULSE 83
[2024-07-22] MEDS: Digoxin 0.125 MG TAB 0.25 MG PO (08:39)
[2024-07-22] MEDS: Sertraline 50 MG TAB PO (08:40)
[2024-07-22] MEDS: LORazepam 1 MG TAB PO ×2 (08:40→11:52)
[2024-07-22] MEDS: Protein Nutritional Supplement 16 GM 1 OUNCE PACKET PO (08:40)
[2024-07-22] MEDS: risperiDONE 0.5 MG TAB PO (08:42)
--- NOTE | 2024-07-22 10:34 | NUR.NOTE ---
Deb is pleasantly confused this AM consistent with her every day cognition deficits. She is AxOx1 but cooperative with care. She is feeding herself and has an okay appetite, but does eat snacks and icecream when offered, also taking protein supplements. Patient is incontinent of bowel/bladder, is voiding regularly into brief and had BM overnight. Patient seems stronger today with mobility. Standing more independently with walker. LLE swelling has significantly decreased and pt does not complain of any pain today. Resting in chair with chair alarm on, family visiting at this time, call light in reach. Nursing Note:
--- NOTE | 2024-07-22 12:27 | NUR.NOTE ---
report given to Cecy MERRILL for continuance of care. Nursing Note:
[2024-07-23 09:25] VITALS: PULSE 88
[2024-07-23] MEDS: Sertraline 50 MG TAB PO (09:25)
[2024-07-23] MEDS: LORazepam 1 MG TAB PO ×2 (09:25→12:39)
[2024-07-23] MEDS: Digoxin 0.125 MG TAB 0.25 MG PO (09:25)
[2024-07-23] MEDS: risperiDONE 0.5 MG TAB PO ×2 (09:25→19:54)
[2024-07-23] MEDS: Protein Nutritional Supplement 16 GM 1 OUNCE PACKET PO (09:27)
--- NOTE | 2024-07-23 09:38 | CMPROGNOTE_ITS ---
Date of service: 07/23/24 Time of Service: 09:39 Care Management Progress Note Progress Note Text Progress Note Text: Deb was lying in bed and appeared to be sleeping comfortably when CM went in to visit with her. She is admitted to [facility] for Hospice respite through 07/25/24, therefor CM opted not to wake her. Family will transport via private vehicle if mobility allows. CM will follow. Discharge Potential Discharge Needs: Other (Hospice) Anticipated Barriers to Discharge: None Identified Patient/Family Education Needs: Review discharge instructions, discuss Ask Me Three Transportation: Private vehicle Plan: Deb is admitted for 5 days of hospice respite and will discharge back to her daughters home on Tuesday. Family will transport via private vehicle (possibly with a lift assist) if mobility allows. CM will follow. Social Determinants of Health Screening Will the Patient Participate in the Screening?: Declined to provide
--- NOTE | 2024-07-23 11:02 | W.PM.PROGNOT ---
Date of Service Date of service: 07/23/24 Time of Service: 10:00 Assessment and Plan Assessment and plan (1) Unintentional weight loss: Status: Chronic Assessment and plan: Primary reason she is on hospice. Down 25 lbs since admitted to hospice. Maximal weight in Dr Salinas's chart was 199 in 2016. only eating w/supports from staff, 1:1 feeds at this time, otherwise will not engage or reach for food drank protein drink this morning well w/no issues ice cream yesterday continue to offer food/snacks/sweets as able (2) Frequent falls: Status: Acute Assessment and plan: It may be time to stop her abipixiban forever. She does have chronic afib, but she has fallen a few times this year and is at risk for a subdural or other brain bleed. Will defer to her PCP, who has cared for her for many years. transfers to recliner daily, in recliner yesterday; typically does not wake up until later in the day, encourage transfer to chair later today (3) Admission for hospice care: Status: Acute Assessment and plan: She is on respite status. Planned discharge is on 07/25. Tatianna Tao NP will be discharging her. I wrote Mimi's phone number on [place]'s white board. We should only call her in case of emergency. (4) Congestive heart failure (CHF): Status: Chronic Assessment and plan: Known problem. Was her initial hospice diagnosis, after admission for same. No changes made to meds on this admission, except holding apixiban for now, (5) Breath shortness: Status: Acute Assessment and plan: none noted today (6) Atrial fibrillation: Status: Chronic Assessment and plan: Chronic Has had holter monitors to show that she no longer returns to NSR. (7) Fatigue: Status: Chronic Assessment and plan: Chronic, ongoing. Used to have trouble falling asleep at night. increased agitation noted overnight increased fatigue noted today (8) Incontinence: Status: Chronic Assessment and plan: Of both urine and feces. Mimi attempts timed bathroom breaks. This works sometimes. (9) Cognitive change: Assessment and plan: increased agitation/paranoa noted last night; refusal for all PO meds IM haldol ordered for PRN, did not require last night, increased fatigue noted today continue to monitor; some concern for hospital acquired delerium, will continue to monitor QHS meds changed to 17:00 for today: risperidone 1.5mg Subjective Subjective Interval history since last seen: Deb remains hospitalized at [facility] on hospice for respite Overall Deb had been doing well, no issues or concerns; Tuesday Deb did well during the day, engaging in care and staff, had an ice cream libertarian w/nurse which made her quite happy. Unfortunately overnight on 07/22 Deb became more agitated, suspicious/paranoid, tried packing her things trying to leave; refusing all oral medications; - haldol 2mg IM q5m PRN x3 ordered for if needed overnight - fortunately she did not need this Per nursing, she wore herself out last night, slept well after agitation, has remained fatigued today; still resting today; will wake up to voice, but fall asleep again after - took all oral meds this morning - drank all of protein shake - concerns w/feeding, will do 1:1s not d/t not engaging in eating otherwise Nursing requesting PM meds administered earlier tonight to try and avoid last nights agitation episode Exam Narrative Exam Narrative: General: older adult female, lying in dark hosp room, bed flat; opens eyes to light voice volume, eyes track to person, no attempt at communication, turns away and closes eyes HEENT: normocephalic, atraumatic, MMM Resp: even and unlabored; LS limited to anterior/lateral, diminished and clear Card: irregular rate and rhythm; radial pulse 2+ GI; BS active all 4 quadrants, soft Skin: no visible rashes or lesions, did not conduct full skin exam Objective Last Vital Signs Temp 97.2 F L 07/20/24 12:07 Pulse 88 07/23/24 09:25 Resp 16 07/20/24 12:07 BP 122/57 L 07/20/24 12:07 Pulse Ox 93 07/20/24 12:07 Time Spent with Patient Time Spent with Patient: <25 minutes Time was spent: preparing to see the patient(eg.review tests), obtaining and/or reviewing separately otained hiistory, ordering medications,tests, procedures, referring, communicating with other health resident care aid and care coordination
[2024-07-23] MEDS: Senna TAB PO (18:29)
[2024-07-23] MEDS: risperiDONE 1 MG TAB 1.5 MG PO (18:29)
[2024-07-24 08:56] VITALS: PULSE 76
[2024-07-24] MEDS: Protein Nutritional Supplement 16 GM 1 OUNCE PACKET PO (08:56)
[2024-07-24] MEDS: risperiDONE 0.5 MG TAB PO ×2 (08:56→19:17)
[2024-07-24] MEDS: LORazepam 1 MG TAB PO ×2 (08:56→11:45)
[2024-07-24] MEDS: Digoxin 0.125 MG TAB 0.25 MG PO (08:56)
[2024-07-24] MEDS: Sertraline 50 MG TAB PO (08:56)
--- NOTE | 2024-07-24 11:54 | CMPROGNOTE_ITS ---
Date of service: 07/24/24 Time of Service: 11:54 Care Management Progress Note Progress Note Text Progress Note Text: Deb was sitting in a recliner and appeared to be sleeping when CM went in to visit with her.; she has a Western playing on the TV and appears to be comfortable. Deb admitted to [facility] on 07/20/24 for 5 days of Hospice respite and per Hospice will be discharging back to her daughters home on Tuesday. Anticipate, Mimi will provide transportation if mobility allows; may also consider a lift assist, w/c van or EMS, if needed. CM will follow. Discharge Potential Discharge Needs: Other (Resume Hospice Services as Planned) Anticipated Barriers to Discharge: None Identified Patient/Family Education Needs: Review discharge instructions, discuss Ask Me Three Transportation: Private vehicle (Depending on mobility. ) Plan: Deb is admitted for 5 days of hospice respite and will discharge back to her daughters home on Tuesday (07/25/2024) with resumption of Hospice services. Daughter will transport via private vehicle (possibly with a lift assist) if mobility allows. CM will follow. Social Determinants of Health Screening Will the Patient Participate in the Screening?: Declined to provide
[2024-07-24] MEDS: risperiDONE 1 MG TAB 1.5 MG PO (17:17)
[2024-07-24] MEDS: Senna TAB PO (17:18)
[2024-07-25 07:19] VITALS: BP 110/50; PULSE 72; RESP 16; TEMP 36.8; O2SAT 92
--- NOTE | 2024-07-25 08:26 | PDOC.CMDIS ---
Date of service: 07/25/24 Time of Service: 08:26 LACE Index Scoring Tool Questions: Length of Stay (in days): 4 - 6 Was the patient admitted via the E.D.?: No E.D. Visits: 1 Answers: Total Score: 5 Risk of Readmission: Low Risk Care Management Discharge Plan Reason for Hospitalization: Hospice Respite Discharge Plan: Deb is discharged home with resumption of Hospice services. Daughter Mimi is providing transportation. Pt will follow up with Hospice providers and discharge plan of care as directed by Hospice providers. Patient/Family Education Needs: Review discharge instructions and plan to follow up with Hospice. Discuss ask me three. Services Needed at Discharge: Home Health Care Services (Resumption of Hospice) SDOH Health Related Social Needs: No Data to Display
[2024-07-25 09:12] VITALS: PULSE 72
[2024-07-25] MEDS: Sertraline 50 MG TAB PO (09:12)
[2024-07-25] MEDS: risperiDONE 0.5 MG TAB PO (09:12)
[2024-07-25] MEDS: Digoxin 0.125 MG TAB 0.25 MG PO (09:12)
[2024-07-25] MEDS: LORazepam 1 MG TAB PO ×2 (09:13→12:23)
[2024-07-25] MEDS: Protein Nutritional Supplement 16 GM 1 OUNCE PACKET PO (09:14)
--- NOTE | 2024-07-25 11:55 | W.PM.DS.N ---
Date of service: 07/25/24 Time of Service: 11:55 DS: Diagnosis Discharge Diagnosis (1) Unintentional weight loss: Status: Chronic Asessment and Plan: On hospice for this Dx. (2) Frequent falls: Status: Acute Asessment and Plan: Has been on AC- Mimi will discuss with PCP. (3) Congestive heart failure (CHF): Status: Chronic Asessment and Plan: Not in acute exacerbation. (4) Breath shortness: Status: Acute Asessment and Plan: SOB at rest at times, increases with activity. (5) Atrial fibrillation: Status: Chronic Asessment and Plan: On AC as above. (6) Fatigue: Status: Chronic (7) Incontinence: Status: Chronic Asessment and Plan: Requires assistance with personal care. (8) Cognitive change: Asessment and Plan: One episode of agitation noted overnight during her stay. (9) Hospice care patient: Status: Acute Asessment and Plan: Hospice to continue upon discharge home. Discharge Plan Disposition Patient Disposition: Home W/Hospice Services Condition: Fair Discharge Details Reason For Visit: Hospice Respite, Weight Loss,Prot-Jose Malnutrition Admit Date/Time: 07/20/24 08:55 Admit Provider: Anna Harrison Attending Provider: Anna Harrison Primary Care Provider: Carolin Salinas Hospital Course Hospital Course: Deb is an 84 year old female on hospice for protein-calorie malnutrition. She was admitted for respite on 07/20. Her daughter is her caregiver and was long overdue for a break from caregiving. Deb has been on hospice for about 18 months. She was originally on for heart failure. She has lost about 25# since she came on. She is weaker and having more falls. There was some discussion re: stopping apixiban in the setting of increased falls and risk for brain bleed. Mimi will discuss with her PCP. She had one episode of agitation and restlessness while she was in for respite. IM Haldol was ordered but they did not end up having to use it. She was more fatigued the following day. She is discharged home to the care of her daughter with hospice support. Her daughter will transport her home via private care. Home Meds and New Rx's Prescriptions: Continued protein [Ensure High Protein] Powder 1 pwd PO DAILY Qty: 480 4RF risperidone 1 mg tablet 1.5 mg PO HS Qty: 135 5RF trazodone 100 mg tablet 100 mg PO HS Qty: 90 5RF Lactobacillus acidophilus 1 EACH tablet 1 ea PO BID morphine concentrate 100 mg/5 mL (20 mg/mL) solution 5 - 20 mg PO Q1-4H MDD 5 mL PRN (Reason: moderate to severe pain or shortness of breath) Qty: 30 0RF Rx Instructions: Hospice Patient sertraline 50 mg tablet 50 mg PO DAILY Qty: 90 5RF apixaban 2.5 mg tablet 2.5 mg PO BID Qty: 180 5RF risperidone [Risperdal] 0.5 mg tablet 0.5 mg PO BID Qty: 180 5RF digoxin 125 mcg (0.125 mg) tablet 0.25 mg PO DAILY Qty: 180 4RF ipratropium-albuterol 0.5 mg-3 mg(2.5 mg base)/3 mL solution for nebulization 3 ml inhalation Q6H PRN (Reason: wheezing) Qty: 90 0RF Rx Instructions: hospice lorazepam 0.5 mg tablet 0.5 mg PO TID PRN Qty: 90 4RF Ensure High Protein Liquid 237 ml PO BID Qty: 01398 12RF Rx Instructions: dispense 60 cans acetaminophen [Tylenol] 325 MG tablet 650 mg PO Q8H PRN PRN albuterol sulfate 90 mcg/actuation HFA aerosol inhaler 2 puff INHALATION Q4H PRN Patient Comments: INHALE 2 PUFFS BY MOUTH EVERY 4 HOURS NEEDED FOR SHORTNESS OF BREATH Discharge Instructions Instructions: Palliative Care Additional Instructions: Apixiban was held while in the hospital. She is at increased risk for brain bleed related to a fall while on anticoagulation. Discuss this with Dr. Salinas, we will defer to her. Activity:: Activity as Tolerated Equipment/Supplies:: No Equipment Needed Diet:: As Tolerated Discharge Orders Discharge Orders: Discharge Order (Routine); Ordered 07/25/24 Ordered By: Tatianna Tao DS: Summary Time Spent with Patient providing and/or coordinating discharge services: Greater than 30 minutes Status at Discharge Functional status at discharge: uses cane/walker Overall status at discharge: patient is back to baseline Mental Status: mental status grossly normal Speech and Movement: speech and movement normal Mood: congruent mood Affect: normal affect Quality:SDOH Health Related Social Needs: No Data to Display Exam Narrative Exam Narrative: Elderly female, sitting up in the chair in her hospital room. Skin is pale. She is fully dressed, awake and alert. Engages in conversation. Limited responses to questions. She dos not appear to be in distress. Respirations appear unlabored, occasional congested cough noted. No lower extremity edema. Psych Mental Status: mental status grossly normal Speech and Movement: speech and movement normal Mood: congruent mood Affect: normal affect DS: Data Vitals/I&O Vitals and I&O: Vital Signs Temperature 36.8 C 07/25/24 07:19 Temperature Source Temporal Artery Scan 07/25/24 07:19 Pulse 72 07/25/24 09:12 Respiratory Rate 16 07/25/24 07:19 Blood Pressure 110/50 L 07/25/24 07:19 Blood Pressure Mean 70 07/25/24 07:19 Pulse Oximetry 92 07/25/24 07:19 Oxygen Delivery Method Room Air 07/25/24 07:19 Oxygen Flow Rate 0 07/25/24 07:19 Pain Level 0 07/25/24 09:13 Intake & Output 07/24/24 07/24/24 07/25/24 11:59 23:59 11:59 Intake Total 360 / 360 600 / 600 Output Total 50 / 450 400 / 450 600 / 600 Balance 310 / -90 -400 / -90 0 / 0 Weight 55.792 kg Intake: Oral 360 / 360 600 / 600 Output: Urine 50 / 450 400 / 450 400 / 400 Stool 200 / 200 Other: Urine Color Yellow Yellow Yellow Urine Appearance Clear Clear Clear Urine Odor Strong Normal None Comment Brief check dry Also changed a wet brief unmeasurable, mixed with stool. Stool Occult Blood Negative Stool Size Large Moderate Stool Characteristics Liquid Soft Formed PFSH All Active Problems Hospice care patient (Acute) Incontinence (Chronic) both urine and feces Fatigue (Chronic) Unintentional weight loss (Chronic) Frequent falls (Acute) Onychogryphosis (Acute) Pain in toes of both feet (Acute) Nail dystrophy (Acute) Onychomycosis (Acute) Admission for hospice care (Acute) Congestive heart failure (CHF) (Chronic) Breath shortness (Acute) Aminah onychomycosis (Acute) Depression (Chronic) a. 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 Positive neutrophil AB mostlikely indicating ulcerative colitis Anxiety (Chronic 07/25/17) Coronary disease (Chronic) COPD (chronic obstructive pulmonary disease) (Chronic) Hypertension (Chronic) SCHAEFFER (nonalcoholic steatohepatitis) (Chronic) H/O inflammatory bowel disease (Chronic) Medical History SBO (small bowel obstruction) Cystitis Pneumonia Fever Acute hypoxemic respiratory failure Acute and chronic respiratory failure with hypoxia Conjunctivitis Right hip pain Cognitive change RUQ abdominal pain Weight loss, abnormal (~06/11/21) 30# in last yr Bradycardia Encounter for monitoring diuretic therapy Pulmonary hypertension Congestive heart failure Tachycardia Bruit Disorder of adrenal gland Disorder of appendix (12/07/12) Elevated serum lactate dehydrogenase (LDH) History of tobacco use Palpitations Seborrheic keratosis (01/01/16) Vascular insufficiency of intestine (06/12/15) 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 02/18-09/19, normal metanephrines, normal dexamethasone suppression. History of tobacco use 100pack/years Bruit of left carotid artery mild-mod. 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 hypokalemia b. hypomagnesemia Surgical History History of bilateral ligation of fallopian tubes History of partial surgical removal of colon (09/15/14) Status post appendectomy History of partial colectomy 09/15/14 right hemicolectomy w/ileocolic anastomosis Ligation of fallopian tube Hemicolectomy [facility]; 09/15/14; RIGHT Colectomy (09/18/14) DR. GRAJEDA Biopsy, Soft Tissue (01/01/16) Punch/shave biospy of skin of left arm, seborrheic keratosis Appendectomy S/P tubal ligation S/P AAA repair Family History Mother Essential hypertension Alzheimer's disease Father Heart disease Breast cancer Prostate cancer Sister Myocardial infarction Sister Myocardial infarction Brother Cancer Sister No problems noted. Sister No problems noted. Brother Substance abuse Brother Substance abuse Brother Substance abuse Cancer Son No problems noted. Daughter No problems noted. Social History Smoking/Tobacco Use Status: Former Tobacco Use Quit Date: 03/14/12 Tobacco: How many years used: 50 Smoking risk assessment performed?: Yes Alcohol Intake: never Drug use: Never Substance use type: does not use Caregiver/Support person: Yes Household members: children Housing: house Number of Children: 2 Communication Needs: Hard of Hearing Do you need help understanding health information?: Always Pets and animals: Yes Pets and animals: cat(s) and dog(s) Current gender identity: decline to answer How often do you talk on the phone with friends or family?: never How often do you get together with friends or relatives?: twice per week Panel score (0-1 are the most socially isolated patients): 0 What type of physical activity do you participate in: none Lelo/Restoration: No preference Special lelo needs: No Fire extinguisher in home: Yes Do you feel safe at home: Yes Do you feel safe in your relationship?: Yes Additional Social history: Deb lives with daughter Mimi, who is her health care agent. Mimi gets some support from hospice team, but provides majority of care. Time Spent with Patient Time Spent with Patient: 45-69 minutes Time was spent: preparing to see the patient(eg.review tests), obtaining and/or reviewing separately otained hiistory, referring, communicating with other health day care provider, counseling the patient and care coordination
== END 2024-07-25 12:55 | disposition hospice, home (50) | DRG 951 ==
PROVIDERS: Admitting Provider Family Medicine; PCP Family Medicine; Visit Provider Family Medicine
DX: Z75.5 Holiday relief care (principal); E46 Unspecified protein-calorie malnutrition; F32.3 Major depressive disorder, single episode, severe with psychotic features; I50.32 Chronic diastolic (congestive) heart failure; K51.90 Ulcerative colitis, unspecified, without complications; R63.4 Abnormal weight loss; I11.0 Hypertensive heart disease with heart failure; Z51.5 Encounter for palliative care; R29.6 Repeated falls; R06.02 Shortness of breath; I48.91 Unspecified atrial fibrillation; R53.83 Other fatigue; R32 Unspecified urinary incontinence; R41.89 Other symptoms and signs involving cognitive functions and awareness; Z79.01 Long term (current) use of anticoagulants; Z74.09 Other reduced mobility; R15.9 Full incontinence of feces; F41.9 Anxiety disorder, unspecified; B37.2 Candidiasis of skin and nail; K75.81 Nonalcoholic steatohepatitis (NASH); J44.9 Chronic obstructive pulmonary disease, unspecified; Z90.49 Acquired absence of other specified parts of digestive tract; Z98.0 Intestinal bypass and anastomosis status
CPT/HCPCS: 00123

== ENCOUNTER 2024-10-31 09:57 | Inpatient (IN) | payer OTHER, SELFPAY ==
--- NOTE | 2024-10-31 10:01 | W.PM.HP.N ---
Date of service: 10/31/24 Time of Service: 16:00 Assessment and Plan Assessment and plan (1) Hospice care patient: Status: Acute Assessment and plan: Admit under hospice respite for supportive management. Continue comfort-focused approach. Supportive Care: Daughter is primary caregiver; respite admission provides temporary relief. Hospice team to continue coordination. (2) Congestive heart failure (CHF): Status: Chronic Assessment and plan: Maintain current hospice regimen, including PRN morphine and inhalers for dyspnea. Monitor O2 as needed. (3) Depression: Status: Chronic Assessment and plan: Continue home meds (4) COPD (chronic obstructive pulmonary disease): Status: Chronic Assessment and plan: Maintain current hospice regimen, including PRN morphine and inhalers for dyspnea. Monitor O2 as needed. (5) Coronary disease: Status: Chronic (6) Protein calorie malnutrition: Status: Chronic Assessment and plan: Encourage intake as tolerated. Continue Ensure BID. History of Present Illness History of Present Illness Chief Complaint: Hospice patient with protein calorie malnutrition admitted for respite. Narrative: Deb is an 84-year-old woman with advanced COPD and heart disease, currently enrolled in hospice care, admitted for family respite. She continues to qualify for hospice services due to her progressive frailty and functional limitations. She is accompanied by her daughter Mimi, who provides the majority of her daily care. Deb eats only sporadically and requires assistance with most activities of daily living. She has been sleeping more frequently. Weight loss of ~20 pounds over the past 2 years Review of Systems Unobtainable due to mental status PFSH All Active Problems (Updated 10/31/24 @ 10:16 by Mimi Dowd NP) Protein calorie malnutrition (Chronic) Hospice care patient (Acute) Incontinence (Chronic) both urine and feces Fatigue (Chronic) Unintentional weight loss (Chronic) Frequent falls (Acute) Onychogryphosis (Acute) Pain in toes of both feet (Acute) Nail dystrophy (Acute) Onychomycosis (Acute) Admission for hospice care (Acute) Congestive heart failure (CHF) (Chronic) Breath shortness (Acute) Aminah onychomycosis (Acute) Depression (Chronic) a. 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 Positive neutrophil AB mostlikely indicating ulcerative colitis Anxiety (Chronic 07/25/17) Coronary disease (Chronic) COPD (chronic obstructive pulmonary disease) (Chronic) Hypertension (Chronic) SCHAEFFER (nonalcoholic steatohepatitis) (Chronic) H/O inflammatory bowel disease (Chronic) Medical History SBO (small bowel obstruction) Cystitis Pneumonia Fever Acute hypoxemic respiratory failure Acute and chronic respiratory failure with hypoxia Conjunctivitis Right hip pain Cognitive change RUQ abdominal pain Weight loss, abnormal (~06/11/21) 30# in last yr Bradycardia Encounter for monitoring diuretic therapy Pulmonary hypertension Congestive heart failure Tachycardia Bruit Disorder of adrenal gland Disorder of appendix (12/07/12) Elevated serum lactate dehydrogenase (LDH) History of tobacco use Palpitations Seborrheic keratosis (01/01/16) Vascular insufficiency of intestine (06/12/15) 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 02/18-09/19, normal metanephrines, normal dexamethasone suppression. History of tobacco use 100pack/years Bruit of left carotid artery mild-mod. 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; 8X5 mm Palpitations 08/26/14; FREQ PVC BY HOLTER 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) Increased body mass index Hyperlipidemia Hiatus hernia syndrome 12/05/14 [facility] [place]; EGD Elevated LDH Diarrhea (11/19/14) Complete edentulism, unspecified Atherosclerosis Arm skin lesion, left (12/09/15) Abdominal aortic aneurysm (05/31/12) 4.4 cm 07/20 s/p repair 2012 Ischemic bowel disease Dependence on supplemental oxygen CVD (cardiovascular disease) Atherosclerosis COPD (chronic obstructive pulmonary disease) with emphysema SVT (supraventricular tachycardia) (09/15/14) Electrolyte imbalance (09/15/14) a. hypokalemia b. hypomagnesemia Surgical History History of bilateral ligation of fallopian tubes History of partial surgical removal of colon (09/15/14) Status post appendectomy History of partial colectomy 09/15/14 right hemicolectomy w/ileocolic anastomosis Ligation of fallopian tube Hemicolectomy [facility]; 09/15/14; RIGHT Colectomy (09/18/14) DR. GRAJEDA Biopsy, Soft Tissue (01/01/16) Punch/shave biospy of skin of left arm, seborrheic keratosis Appendectomy S/P tubal ligation S/P AAA repair Family History Mother Essential hypertension Alzheimer's disease Father Heart disease Breast cancer Prostate cancer Sister Myocardial infarction Sister Myocardial infarction Brother Cancer Sister No problems noted. Sister No problems noted. Brother Substance abuse Brother Substance abuse Brother Substance abuse Cancer Son No problems noted. Daughter No problems noted. Social History Smoking/Tobacco Use Status: Former Tobacco Use Quit Date: 03/14/12 Tobacco: How many years used: 50 Smoking risk assessment performed?: Yes Alcohol Intake: never Drug use: Never Substance use type: does not use Caregiver/Support person: Yes Household members: children Housing: house Number of Children: 2 Communication Needs: Hard of Hearing Do you need help understanding health information?: Always Pets and animals: Yes Pets and animals: cat(s) and dog(s) Current gender identity: decline to answer How often do you talk on the phone with friends or family?: never How often do you get together with friends or relatives?: twice per week Panel score (0-1 are the most socially isolated patients): 0 What type of physical activity do you participate in: none Lelo/Faith: No preference Special lelo needs: No Fire extinguisher in home: Yes Do you feel safe at home: Yes Do you feel safe in your relationship?: Yes Additional Social history: Deb lives with daughter Mimi, who is her health care agent. Mimi gets some support from hospice team, but provides majority of care. Meds Allergies and Home Medications Allergies Allergy/AdvReac Type Severity Reaction Status Date / Time pneumococcal 7-valent Allergy Mild Local Verified 10/23/24 11:28 conjugate to (From Prevnar) reaction amoxicillin trihydrate (From AdvReac Intermediate VOMITING Verified 10/23/24 11:28 Augmentin) potassium clavulanate (From AdvReac Intermediate VOMITING Verified 10/23/24 11:28 Augmentin) Home Medications ?Medication ?Instructions ?Recorded ?Confirmed ?Type acetaminophen 325 mg tablet 650 mg PO Q8H PRN PRN 08/10/14 10/31/24 History (Tylenol) Lactobacillus acidophilus 1 1 ea PO BID 03/11/15 10/31/24 History billion cell tablet protein (Ensure High Protein oral 1 pwd PO DAILY low albumin, 08/12/22 10/31/24 Rx powder) hypotension, calorie malnutrition #480 grams albuterol sulfate 90 mcg/actuation 2 puff inhalation Q4H PRN 01/08/23 10/31/24 History aerosol inhaler morphine concentrate 100 mg/5 mL 5 - 20 mg (0.25 - 1 mL) PO Q1-4H 01/26/23 10/31/24 Rx (20 mg/mL) oral solution PRN moderate to severe pain or shortness of breath #30 mL apixaban 2.5 mg tablet 2.5 mg PO BID #180 tabs 01/31/24 10/31/24 Rx risperidone 0.5 mg tablet 0.5 mg PO BID #180 tabs 01/31/24 10/31/24 Rx (Risperdal) digoxin 125 mcg (0.125 mg) tablet 0.25 mg (2 x 125 mcg (0.125 mg)) 02/06/24 10/31/24 Rx PO DAILY #180 tabs ipratropium 0.5 mg-albuterol 3 mg 3 ml inhalation Q6H PRN wheezing 02/29/24 10/31/24 Rx (2.5 mg base)/3 mL nebulization #90 mL soln risperidone 1 mg tablet 1.5 mg (1.5 x 1 mg) PO HS #135 tabs 05/22/24 10/31/24 Rx trazodone 100 mg tablet 100 mg PO HS #90 tabs 05/22/24 10/31/24 Rx lorazepam 0.5 mg tablet 0.5 mg PO TID PRN anxiety #90 tabs 03/14/25 08/20/25 Rx Ensure High Protein (food 237 ml PO BID low albumin; 06/27/24 10/31/24 Rx supplemt, lactose-reduced) malnutrition #14,220 mL sertraline 50 mg tablet 50 mg PO DAILY #90 tabs 08/01/24 10/31/24 Rx olopatadine 0.1 % eye drops 1 drp ophthalmic (eye) BID #5 mL 10/24/24 10/31/24 Rx (Pataday Twice Daily Relief) Exam Narrative Exam Narrative: General: Very frail elderly woman, minimally interactive with provider, occasionally responds. Good eye contact. Cardiac: Regular rate and rhythm, 3/6 systolic murmur. Lungs: Distant, clear bilaterally Extremities: No edema. Time Spent Time spent with Patient: 40-54 minutes Time was spent: preparing to see the patient(eg.review tests), obtaining and/or reviewing separately otained hiistory, ordering medications,tests, procedures, referring, communicating with other health home care coordinator and care coordination
[2024-10-31 15:48] VITALS: BP 107/51; PULSE 80; RESP 16; TEMP 36.5; O2SAT 93
[2024-10-31] MEDS: LORazepam 0.5 MG TAB PO (16:17)
[2024-10-31 19:50] VITALS: BP 104/57; PULSE 70; RESP 18; TEMP 36.7; O2SAT 92
[2024-11-01 07:07] VITALS: BP 117/54; PULSE 59; RESP 16; TEMP 36.5; O2SAT 93
--- NOTE | 2024-11-01 08:35 | CMPROGNOTE_ITS ---
Date of service: 11/01/24 Time of Service: 11:15 Care Management Progress Note Progress Note Text Progress Note Text: Deb is a hospice patient is on respite. Deb is lying down and resting but awake at this time. She appears comfortable and is pleasant with this screenplay writer. She expressed she is hopeful to have her nails repainted soon. CM will continue to follow. Discharge Potential Discharge Needs: Other (Hospice patient) Anticipated Barriers to Discharge: None Identified Patient/Family Education Needs: Review discharge instructions, discuss Ask Me Three Transportation: Private vehicle Plan: Deb is a hospice patient. It is anticipated that she will return home with her family and caregivers at the time of discharge. She will continue to be followed by hospice services. CM will continue to follow. Social Determinants of Health Screening Will the Patient Participate in the Screening?: Unable to obtain
[2024-11-01 09:50] VITALS: PULSE 65
[2024-11-01] MEDS: Digoxin 0.25 MG TAB PO (09:50)
[2024-11-01] MEDS: Sertraline 50 MG TAB PO (09:50)
[2024-11-01] MEDS: LORazepam 0.5 MG TAB PO ×3 (09:50→19:53)
[2024-11-01] MEDS: risperiDONE 0.5 MG TAB PO ×2 (09:51→19:51)
[2024-11-01] MEDS: Lactobacillus Acidophilus CAP 1 CAP PO ×2 (09:51→19:51)
[2024-11-01] MEDS: Apixaban 2.5 MG TAB PO ×2 (09:51→19:56)
[2024-11-01] MEDS: Olopatadine 0.1% OPHTH SOL 5 ML BTL OP (09:52)
[2024-11-01] MEDS: risperiDONE 1 MG TAB 1.5 MG PO (19:51)
[2024-11-01] MEDS: traZODone 100 MG TAB PO (19:52)
[2024-11-02 07:21] VITALS: BP 108/53; PULSE 85; RESP 14; TEMP 36.3; O2SAT 91
--- NOTE | 2024-11-02 08:16 | PDOC.CMPRO ---
Date of service: 11/02/24 Time of Service: 09:31 Care Management Progress Note Progress Note Text Progress Note Text: Deb is a hospice patient is on respite. She was sleeping in the chair when CM met with her today. CM provider Deb with a warm blanket for comfort as she appeared chilled. CM will continue to follow. Discharge Potential Discharge Needs: Other (Hospice) Anticipated Barriers to Discharge: None Identified Patient/Family Education Needs: Review discharge instructions, discuss Ask Me Three Transportation: Private vehicle Plan: Deb is a hospice patient. It is anticipated that she will return home with her family and caregivers at the time of discharge. She will continue to be followed by hospice services. CM will continue to follow. Social Determinants of Health Screening Will the Patient Participate in the Screening?: Unable to obtain
[2024-11-03 07:32] VITALS: BP 113/63; PULSE 74; RESP 18; TEMP 36.4; O2SAT 93
[2024-11-03 07:34] VITALS: PULSE 78
[2024-11-03] MEDS: Olopatadine 0.1% OPHTH SOL 5 ML BTL OP ×2 (07:34→19:31)
[2024-11-03] MEDS: Lactobacillus Acidophilus CAP 1 CAP PO ×2 (07:34→17:16)
[2024-11-03] MEDS: Digoxin 0.25 MG TAB PO (07:34)
[2024-11-03] MEDS: Apixaban 2.5 MG TAB PO ×2 (07:34→17:16)
[2024-11-03] MEDS: risperiDONE 0.5 MG TAB PO (07:34)
[2024-11-03] MEDS: LORazepam 0.5 MG TAB PO ×2 (07:34→17:16)
[2024-11-03] MEDS: Sertraline 50 MG TAB PO (07:35)
[2024-11-03] MEDS: risperiDONE 1 MG TAB 1.5 MG PO (19:31)
[2024-11-04 07:11] VITALS: BP 101/74; PULSE 87; RESP 18; TEMP 36.3; O2SAT 95
[2024-11-04 07:44] VITALS: PULSE 87
[2024-11-04] MEDS: Apixaban 2.5 MG TAB PO (07:44)
[2024-11-04] MEDS: Sertraline 50 MG TAB PO (07:44)
[2024-11-04] MEDS: Digoxin 0.25 MG TAB PO (07:44)
[2024-11-04] MEDS: risperiDONE 0.5 MG TAB PO (07:44)
[2024-11-04] MEDS: LORazepam 0.5 MG TAB PO (07:44)
[2024-11-04] MEDS: Lactobacillus Acidophilus CAP 1 CAP PO (07:44)
--- NOTE | 2024-11-04 16:19 | DSE_ITS ---
Date of service: 11/04/24 Time of Service: 16:19 DS: Diagnosis Discharge Diagnosis (1) Protein calorie malnutrition: Status: Chronic Discharge Plan Disposition Patient Disposition: Home W/Hospice Services Condition: Deteriorating Discharge Details Reason For Visit: Protein Calorie Malnutrition Admit Date/Time: 10/31/24 09:57 Admit Provider: Anna Harrison Attending Provider: Anna Harrison Primary Care Provider: Carolin [facility] Hospital Course: Deb is an 84-year-old woman with advanced COPD and chronic heart disease, enrolled in hospice care, admitted for family respite. She continues to qualify for hospice services due to progressive frailty and functional limitations. She is accompanied by her daughter Mimi, who provides the majority of her daily care. Deb has poor oral intake, requires assistance with most activities of daily living, and has experienced increased sleep. She has had a weight loss of approximately 20 pounds over the past 2 years. She is currently on home hospice services. Past Medical History Includes: CHF, COPD with emphysema, atrial fibrillation, HFpEF, coronary disease, hypertension, depression with psychotic features, SCHAEFFER, inflammatory bowel disease, protein-calorie malnutrition, frequent falls, onychomycosis, gastroenteritis, and multiple prior infections including pneumonia, cystitis, and SBO. Surgical History * Right hemicolectomy w/ ileocolic anastomosis * Status post appendectomy * S/P AAA repair * Bilateral tubal ligation * Punch/shave biopsy of left arm (seborrheic keratosis) Social History * Lives with daughter Mimi, who is primary caregiver. * Former smoker (50 pack-years, quit 2012) * Never uses alcohol or recreational drugs * Hard of hearing; needs assistance understanding health information Medications * PRN morphine, acetaminophen, albuterol, ipratropium/albuterol nebulizer * Chronic meds include digoxin, apixaban, risperidone, trazodone, sertraline, lorazepam, and Ensure High Protein * Eye drops: olopatadine Allergies: * Pneumococcal 7-valent (mild, local reaction) * Amoxicillin/augmentin (vomiting) Discharge Instructions: * Continue current hospice medications and comfort measures. * Encourage oral intake as tolerated. * Monitor O2, pain, and dyspnea. * Hospice team to continue regular follow-up and coordination with daughter for supportive care. Home Meds and New Rx's Prescriptions: Continued protein [Ensure High Protein] Powder 1 pwd PO DAILY Qty: 480 4RF risperidone 1 mg tablet 1.5 mg PO HS Qty: 135 5RF trazodone 100 mg tablet 100 mg PO HS Qty: 90 5RF Lactobacillus acidophilus 1 EACH tablet 1 ea PO BID morphine concentrate 100 mg/5 mL (20 mg/mL) solution 5 - 20 mg PO Q1-4H MDD 5 mL PRN (Reason: moderate to severe pain or shortness of breath) Qty: 30 0RF Rx Instructions: Hospice Patient apixaban 2.5 mg tablet 2.5 mg PO BID Qty: 180 5RF risperidone [Risperdal] 0.5 mg tablet 0.5 mg PO BID Qty: 180 5RF digoxin 125 mcg (0.125 mg) tablet 0.25 mg PO DAILY Qty: 180 4RF ipratropium-albuterol 0.5 mg-3 mg(2.5 mg base)/3 mL solution for nebulization 3 ml inhalation Q6H PRN (Reason: wheezing) Qty: 90 0RF Rx Instructions: hospice lorazepam 0.5 mg tablet 0.5 mg PO TID PRN Qty: 90 4RF Ensure High Protein Liquid 237 ml PO BID Qty: 72924 12RF Rx Instructions: dispense 60 cans sertraline 50 mg tablet 50 mg PO DAILY Qty: 90 5RF olopatadine [Pataday Twice Daily Relief] 0.1 % drops 1 drp ophthalmic (eye) BID Qty: 5 2RF Rx Instructions: separate doses by at least 6-8 hours. Hospice acetaminophen [Tylenol] 325 MG tablet 650 mg PO Q8H PRN PRN albuterol sulfate 90 mcg/actuation HFA aerosol inhaler 2 puff INHALATION Q4H PRN Patient Comments: INHALE 2 PUFFS BY MOUTH EVERY 4 HOURS NEEDED FOR SHORTNESS OF BREATH Discharge Instructions Additional Instructions: * Deb is returning home to continue under home hospice care. The goal is comfort and support. * Continue to provide daily care, including assistance with eating, bathing, and mobility. * Hospice team is available for support, guidance, and equipment as needed. Medications * Pain or shortness of breath: Use morphine as prescribed. * Breathing treatments: Use inhalers (albuterol, ipratropium/albuterol) as needed for wheezing or shortness of breath. * Other medications: Continue all home medications as directed by hospice, including heart, depression, and sleep medications. Nutrition * Encourage oral intake as tolerated. Monitoring * Watch for signs of discomfort, pain, or shortness of breath. * Notify hospice team if there are changes in breathing, alertness, or overall comfort. Comfort and Safety * Assist with mobility to prevent falls. * Ensure safe environment: remove tripping hazards. * Encourage rest and periods of activity as tolerated. * Grooming, personal hygiene, and skin care should be maintained as able. Support * Hospice team is available 04/10 for guidance, support, and medications. * Use hospice nurse visits and check-ins to address concerns or adjust care. * Family respite can be requested again if needed. When to Call Hospice or Seek Help * Significant increase in shortness of breath or difficulty breathing * Severe pain not relieved by medications * Sudden confusion, unresponsiveness, or significant change in alertness * Fever or signs of infection * Any concern about safety at home Stand Alone Forms: Nursing Discharge Form Activity:: Activity as Tolerated Equipment/Supplies:: No Equipment Needed Diet:: As Tolerated Discharge Orders Discharge Orders: Discharge Order (Routine); Ordered 11/04/24 Ordered By: Mimi Dowd Discharge Data Discharge Date/Time-TO BE ENTERED AT DEPARTURE: 11/04/24 16:29 DS: Summary Time Spent with Patient providing and/or coordinating discharge services: Less than 30 minutes Status at Discharge Functional status at discharge: uses cane/walker Overall status at discharge: patient is back to baseline Mental Status: mental status grossly normal Speech and Movement: speech and movement normal Mood: congruent mood Affect: normal affect Exam Narrative Exam Narrative: General: Very frail elderly woman, minimally interactive with provider, occasionally responds. Good eye contact. Cardiac: Regular rate and rhythm, 3/6 systolic murmur. Lungs: Distant, clear bilaterally Extremities: No edema. Psych Mental Status: mental status grossly normal Speech and Movement: speech and movement normal Mood: congruent mood Affect: normal affect DS: Data Vitals/I&O Vitals and I&O: Vital Signs Temperature 36.3 C L 11/04/24 07:11 Temperature Source Tympanic 11/04/24 07:11 Pulse 87 11/04/24 07:44 Pulse Rhythm Irregular 10/31/24 15:59 Respiratory Rate 18 11/04/24 07:11 Respiratory Effort Normal, Non-Labored 10/31/24 15:59 Respiratory Depth Normal 10/31/24 15:59 Respiratory Pattern Normal 10/31/24 15:59 Blood Pressure 101/74 11/04/24 07:11 Blood Pressure Mean 83 11/04/24 07:11 Pulse Oximetry 95 11/04/24 07:11 Oxygen Delivery Method Room Air 11/04/24 07:11 Oxygen Flow Rate 0 11/04/24 07:11 Pain Level 0 11/04/24 07:11 Comment ANALYSIS SPECIALIST took vitals by mistake. 10/31/24 19:50 Intake & Output 11/03/24 11/04/24 11/04/24 23:59 11:59 23:59 Intake Total 650 / 900 1050 / 1300 250 / 1300 Balance 650 / 900 1050 / 1300 250 / 1300 Intake: Oral 650 / 900 1050 / 1300 250 / 1300 Other: Urine Color Yellow Yellow Urine Appearance Clear Clear Urine Odor Normal Comment large amount of urine in diaper and voided in toilet. Stool Size Moderate Small Stool Characteristics Liquid Soft Brown PFSH All Active Problems (Updated 11/05/24 @ 00:03 by KODY GALEANA) Protein calorie malnutrition (Chronic) Incontinence (Chronic) both urine and feces Fatigue (Chronic) Unintentional weight loss (Chronic) Frequent falls (Acute) Onychogryphosis (Acute) Pain in toes of both feet (Acute) Nail dystrophy (Acute) Onychomycosis (Acute) Admission for hospice care (Acute) Breath shortness (Acute) Aminah onychomycosis (Acute) Gastroenteritis (Acute) Involuntary movements (Acute) Chronic heart failure with preserved ejection fraction (HFpEF) (Acute) Atrial fibrillation (Chronic) Tubular adenoma of colon (Chronic 03/04/14) 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 Positive neutrophil AB mostlikely indicating ulcerative colitis Anxiety (Chronic 07/25/17) Hypertension (Chronic) SCHAEFFER (nonalcoholic steatohepatitis) (Chronic) H/O inflammatory bowel disease (Chronic) Medical History SBO (small bowel obstruction) Cystitis Pneumonia Fever Acute hypoxemic respiratory failure Acute and chronic respiratory failure with hypoxia Conjunctivitis Right hip pain Cognitive change RUQ abdominal pain Weight loss, abnormal (~06/11/21) 30# in last yr Bradycardia Encounter for monitoring diuretic therapy Pulmonary hypertension Congestive heart failure Tachycardia Bruit Disorder of adrenal gland Disorder of appendix (12/07/12) Elevated serum lactate dehydrogenase (LDH) History of tobacco use Palpitations Seborrheic keratosis (01/01/16) Vascular insufficiency of intestine (06/12/15) 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 02/18-09/19, normal metanephrines, normal dexamethasone suppression. History of tobacco use 100pack/years Bruit of left carotid artery mild-mod. 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; 8X5 mm Palpitations 08/26/14; FREQ PVC BY HOLTER 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) Increased body mass index Hyperlipidemia Hiatus hernia syndrome 12/05/14 [facility] [place]; EGD Elevated LDH Diarrhea (11/19/14) Complete edentulism, unspecified Atherosclerosis Arm skin lesion, left (12/09/15) Abdominal aortic aneurysm (05/31/12) 4.4 cm 07/20 s/p repair 2012 Ischemic bowel disease Dependence on supplemental oxygen CVD (cardiovascular disease) Atherosclerosis COPD (chronic obstructive pulmonary disease) with emphysema SVT (supraventricular tachycardia) (09/15/14) Electrolyte imbalance (09/15/14) a. hypokalemia b. hypomagnesemia Surgical History History of bilateral ligation of fallopian tubes History of partial surgical removal of colon (09/15/14) Status post appendectomy History of partial colectomy 09/15/14 right hemicolectomy w/ileocolic anastomosis Ligation of fallopian tube Hemicolectomy [facility]; 09/15/14; RIGHT Colectomy (09/18/14) DR. GRAJEDA Biopsy, Soft Tissue (01/01/16) Punch/shave biospy of skin of left arm, seborrheic keratosis Appendectomy S/P tubal ligation S/P AAA repair Family History Mother Essential hypertension Alzheimer's disease Father Heart disease Breast cancer Prostate cancer Sister Myocardial infarction Sister Myocardial infarction Brother Cancer Sister No problems noted. Sister No problems noted. Brother Substance abuse Brother Substance abuse Brother Substance abuse Cancer Son No problems noted. Daughter No problems noted. Social History Smoking/Tobacco Use Status: Former Tobacco Use Quit Date: 03/14/12 Tobacco: How many years used: 50 Smoking risk assessment performed?: Yes Alcohol Intake: never Drug use: Never Substance use type: does not use Caregiver/Support person: Yes Household members: children Housing: house Number of Children: 2 Communication Needs: Hard of Hearing Do you need help understanding health information?: Always Pets and animals: Yes Pets and animals: cat(s) and dog(s) Current gender identity: decline to answer How often do you talk on the phone with friends or family?: never How often do you get together with friends or relatives?: twice per week Panel score (0-1 are the most socially isolated patients): 0 What type of physical activity do you participate in: none Lelo/Anabaptist: No preference Special lelo needs: No Fire extinguisher in home: Yes Do you feel safe at home: Yes Do you feel safe in your relationship?: Yes Additional Social history: Deb lives with daughter Mimi, who is her health care agent. Mimi gets some support from hospice team, but provides majority of care. Time Spent with Patient Time Spent with Patient: <45 minutes Time was spent: preparing to see the patient(eg.review tests), referring, communicating with other health intensive care specialist, counseling the patient and care coordination
== END 2024-11-04 16:29 | disposition hospice, home (50) | DRG 292 ==
PROVIDERS: Admitting Provider Family Medicine; PCP Family Medicine; Responsible Provider Nurse Practitioner Family; Visit Provider Family Medicine
DX: I11.0 Hypertensive heart disease with heart failure (principal); E46 Unspecified protein-calorie malnutrition; F32.3 Major depressive disorder, single episode, severe with psychotic features; K51.20 Ulcerative (chronic) proctitis without complications; I50.32 Chronic diastolic (congestive) heart failure; Z51.5 Encounter for palliative care; J44.9 Chronic obstructive pulmonary disease, unspecified; Z75.5 Holiday relief care; I25.10 Atherosclerotic heart disease of native coronary artery without angina pectoris; R15.9 Full incontinence of feces; R32 Unspecified urinary incontinence; R63.4 Abnormal weight loss; R29.6 Repeated falls; B35.1 Tinea unguium; K75.81 Nonalcoholic steatohepatitis (NASH); R25.9 Unspecified abnormal involuntary movements; F41.9 Anxiety disorder, unspecified; E78.5 Hyperlipidemia, unspecified; I48.91 Unspecified atrial fibrillation; Z86.73 Personal history of transient ischemic attack (TIA), and cerebral infarction without residual deficits; Z90.49 Acquired absence of other specified parts of digestive tract; Z98.0 Intestinal bypass and anastomosis status; Z87.891 Personal history of nicotine dependence
CPT/HCPCS: 00123

== ENCOUNTER 2025-02-19 14:56 | Inpatient (IN) | payer OTHER, SELFPAY ==
--- NOTE | 2025-02-19 15:04 | HPE_ITS ---
Date of service: 02/19/25 Time of Service: 15:05 Assessment and Plan Assessment and plan (1) Unintentional weight loss: Status: Chronic Assessment and plan: This is her hospice Dx. She is eating less, Mimi estimates about 1 meal per day and snacks. She continues to lose weight, her MUAC is down to 20.5 cm from 22 cm on 01/15/25. She appears more thin and frail. (2) Frequent falls: Status: Acute Assessment and plan: She has had several falls. The falls appear to be happening more frequently. Her last fall was 3 days ago on 02/16/25 with no injuries. Consider stopping Apixiban, defer to her PCP who she has a long-term relationship with. (3) Admission for hospice care: Status: Acute Assessment and plan: Her daughter, Mimi is her caregiver. She is exhausted and requesting a respite stay for Deb. She is admitted to hospice respite and will discharge home on Tuesday02/24/25. (4) Congestive heart failure (CHF): (5) Breath shortness: Status: Acute (6) Atrial fibrillation: Status: Chronic Assessment and plan: Rapid at times. On digoxin and eliquis. (7) Fatigue: Status: Chronic Assessment and plan: Chronic, worsening. She is sleeping later into the day and dozing off intermittently. She spends the day in her chair, watching TV. (8) Incontinence: Status: Chronic Assessment and plan: She is fully incontinent. She is dependent on others for care. She does not have any pressure sores. (9) Hospice care patient: Status: Acute Assessment and plan: This visit also serves as a [id number] visit for recertification for hospice. She is clearly declining. She is requiring more assistance for care. She has hospice LNAs coming in at home 5 days per week now to help with personal care/incontinent care. PPS score: 40% History of Present Illness Narrative: Deb is an 84 year old female who is on hospice for protein-calorie malnutrition. She also has a past medical Hx significant for heart failure and a-fib. Her daughter, Mimi is her caregiver. Mimi provides 24/7 care for her mother at home with help from hospice but very little other help. Deb is dependent on others for all care. She has hospice LNAs coming in 5 days per week to provide personal care/bathing/incontinent care. She is able to ambulate with a walker. She has had several falls at home, the most recent fall was 02/16, 3 days ago. She lives a sedentary life. She spends her days sitting in her chair, watching T V. She is eating less, Mimi estimates about 1 meal per day and snacks. She continues to lose weight, her MUAC is down to 20.5 cm from 22 cm on 01/15/25. She appears more frail. She is incontinent but she does not have any skin breakdown. She is sleeping more. She sleeps well at night and late into the day. She dozes off in her chair at times. Deb is clearly declining. She appears to be losing weight. Mimi is exhausted and requesting a hospice respite stay for her mother. [facility] was able to accommodate this and she is admitted for Hospice respite, to be discharged on 02/24/25. Review of Systems Narrative: Denies concerns. PFSH All Active Problems (Updated 02/19/25 @ 19:25 by Tatianna Tao NP) Hospice care patient (Acute) Protein calorie malnutrition (Chronic) Incontinence (Chronic) both urine and feces Fatigue (Chronic) Unintentional weight loss (Chronic) Frequent falls (Acute) Onychogryphosis (Acute) Pain in toes of both feet (Acute) Nail dystrophy (Acute) Onychomycosis (Acute) Admission for hospice care (Acute) Breath shortness (Acute) Aminah onychomycosis (Acute) Gastroenteritis (Acute) Involuntary movements (Acute) Chronic heart failure with preserved ejection fraction (HFpEF) (Acute) Atrial fibrillation (Chronic) Tubular adenoma of colon (Chronic 03/04/14) 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 with psychotic features COPD (chronic obstructive pulmonary disease) Coronary disease SBO (small bowel obstruction) Cystitis Pneumonia Fever Acute hypoxemic respiratory failure Acute and chronic respiratory failure with hypoxia Conjunctivitis Right hip pain Cognitive change RUQ abdominal pain Weight loss, abnormal (~06/11/21) 30# in last yr Bradycardia Encounter for monitoring diuretic therapy Pulmonary hypertension Congestive heart failure Tachycardia Bruit Disorder of adrenal gland Disorder of appendix (12/07/12) Elevated serum lactate dehydrogenase (LDH) History of tobacco use Palpitations Seborrheic keratosis (01/01/16) Vascular insufficiency of intestine (06/12/15) 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 02/18-09/19, normal metanephrines, normal dexamethasone suppression. History of tobacco use 100pack/years Bruit of left carotid artery mild-mod. 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 hypokalemia b. hypomagnesemia Surgical History History of bilateral ligation of fallopian tubes History of partial surgical removal of colon (09/15/14) Status post appendectomy History of partial colectomy 09/15/14 right hemicolectomy w/ileocolic anastomosis Ligation of fallopian tube Hemicolectomy [facility]; 09/15/14; RIGHT Colectomy (09/18/14) DR. GRAJEDA Biopsy, Soft Tissue (01/01/16) Punch/shave biospy of skin of left arm, seborrheic keratosis Appendectomy S/P tubal ligation S/P AAA repair Family History Mother Essential hypertension Alzheimer's disease Father Heart disease Breast cancer Prostate cancer Sister Myocardial infarction Sister Myocardial infarction Brother Cancer Sister No problems noted. Sister No problems noted. Brother Substance abuse Brother Substance abuse Brother Substance abuse Cancer Son No problems noted. Daughter No problems noted. Social History Smoking/Tobacco Use Status: Former Tobacco Use Quit Date: 03/14/12 Tobacco: How many years used: 50 Smoking risk assessment performed?: Yes Alcohol Intake: never Drug use: Never Substance use type: does not use Caregiver/Support person: Yes Household members: children Housing: house Number of Children: 2 Communication Needs: Hard of Hearing Do you need help understanding health information?: Always Pets and animals: Yes Pets and animals: cat(s) and dog(s) Current gender identity: decline to answer How often do you talk on the phone with friends or family?: never How often do you get together with friends or relatives?: twice per week Panel score (0-1 are the most socially isolated patients): 0 What type of physical activity do you participate in: none Lelo/Episcopal: No preference Special lelo needs: No Fire extinguisher in home: Yes Do you feel safe at home: Yes Do you feel safe in your relationship?: Yes Additional Social history: Deb lives with daughter Mimi, who is her health care agent. Mimi gets some support from hospice team, but provides majority of care. Meds Allergies and Home Medications Allergies Allergy/AdvReac Type Severity Reaction Status Date / Time pneumococcal 7-valent Allergy Mild Local Verified 10/23/24 11:28 conjugate to (From Prevnar) reaction amoxicillin trihydrate (From AdvReac Intermediate VOMITING Verified 10/23/24 11:28 Augmentin) potassium clavulanate (From AdvReac Intermediate VOMITING Verified 10/23/24 11:28 Augmentin) Home Medications ?Medication ?Instructions ?Recorded ?Confirmed ?Type acetaminophen 325 mg tablet 650 mg PO Q8H PRN PRN 07/14 015 02/19/25 History (Tylenol) Lactobacillus acidophilus 1 1 ea PO BID 03/11/1502/19 History billion cell tablet protein (Ensure High Protein oral 1 pwd PO DAILY low a lbumin, 08/12/22 02/19/25 Rx powder) hypotension, calorie malnutr ition #480 grams albuterol sulfate 90 mcg/actuation 2 puff inhalation Q 4H PRN 01/08/23 02/19/25 History aerosol inhaler digoxin 125 mcg (0.125 mg) tablet 0.25 mg (2 x 125 mcg (0.125 mg)) 02/06/24 02/19/25 Rx PO DAILY #180 tabs ipratropium 0.5 mg-albuterol 3 mg 3 ml inhalation Q6H PRN wheezing 02/29/24 02/19/25 Rx (2.5 mg base)/3 mL nebulization #90 mL soln risperidone 1 mg tablet 1.5 mg (1.5 x 1 mg) PO HS #1 35 tabs 05/22/24 02/19/25 Rx trazodone 100 mg tablet 100 mg PO HS #90 tabs 02/19/25 Rx Ensure High Protein (food 237 ml PO BID low albumin; 0 06/27/24 02/19/25 Rx supplemt, lactose-reduced) malnutrition #14,220 mL sertraline 50 mg tablet 50 mg PO DAILY #90 tabs 07/1302/19/25 Rx olopatadine 0.1 % eye drops 1 drp ophthalmic (eye) BID #5 mL 10/24/24 02/19/25 Rx (Pataday Twice Daily Relief) lorazepam 0.5 mg tablet 0.5 mg PO TID PRN anxiety #9 0 tabs 12/10/24 02/19/25 Rx bisacodyl 10 mg rectal suppository 10 mg W[place] DAILY PRN constipation #2 01/15/25 02/19/25 Rx (Dulcolax (bisacodyl)) ea haloperidol lactate 2 mg/mL oral 2 mg PO ONCE agitatio n #15 mL 01/15/25 02/19/25 Rx concentrate hyoscyamine sulfate 0.125 mg 0.125 mg sublingual QID e xcess 01/15/25 02/19/25 Rx sublingual tablet secretions #20 tabs lorazepam 1 mg tablet 1 mg PO Q4H PRN anxiety #6 t abs 01/15/25 02/19/25 Rx morphine concentrate 100 mg/5 mL 5 - 20 mg (0.25 - 1 m L) PO Q1-4H 01/15/25 02/19/25 Rx (20 mg/mL) oral solution PRN moderate to severe pain or shortness of breath #30 mL prochlorperazine maleate 10 mg 10 mg PO QID PRN nausea and 01/15/25 02/19/25 Rx tablet (Compazine) vomiting #6 tabs risperidone 0.5 mg tablet 0.5 mg PO BID #180 tabs 01/1302/19/25 Rx (Risperdal) apixaban 2.5 mg tablet 2.5 mg PO BID #180 tabs 11/0502/19/25 Rx Exam Narrative Exam Narrative: General: thin, elderly female, appears thinner than she was previously. She is pleasant, slow to respond to questions. She appears to be in good spirits. She does not appear to be in distress. HEENT: normocephalic, atraumatic, EOMI, MMM Neck: supple Cardiovascular: irregularly irregular, nontachycardic, HR: 78 Respiratory: respirations appear unlabored at rest. Lung sounds are diminished throughout, no rales or wheezing noted. GI: +BS, abd soft, round, nondistended, nontender on palpation. Ext: moves all 4 extremities freely, trace pitting edema to LLE. VTE Prohylaxis Risk Level: Moderate/High Risk Contraindications: Other (falls) Prophylaxis: Patient anticoagulated Time Spent Time spent with Patient: >75 minutes Time was spent: preparing to see the patient(eg.review tests), obtaining and/or reviewing separately otained hiistory, ordering medications,tests, procedures, referring, communicating with other health adult care manager, counseling the patient and care coordination
--- NOTE | 2025-02-19 16:19 | PHA.ACLINAW ---
Current Meds Current Medication Order Review: Reviewed (Per pt's daughter: pt takes digoxin 0.125mg BID)
[2025-02-19 16:45] VITALS: BP 124/67; PULSE 63; RESP 18; TEMP 36.8; O2SAT 93
[2025-02-19 19:40] VITALS: PULSE 88
[2025-02-19] MEDS: Digoxin 0.125 MG TAB PO (19:42)
[2025-02-19] MEDS: Lactobacillus Acidophilus CAP 1 CAP PO (19:42)
[2025-02-19] MEDS: traZODone 100 MG TAB PO (19:42)
[2025-02-19] MEDS: Apixaban 2.5 MG TAB PO (19:42)
[2025-02-19] MEDS: risperiDONE 1 MG TAB 1.5 MG PO (19:42)
[2025-02-19] MEDS: risperiDONE 0.5 MG TAB PO (19:42)
[2025-02-19] MEDS: LORazepam 0.5 MG TAB PO (19:43)
[2025-02-19] MEDS: Hyoscyamine 0.125 MG SL/ORAL/CHEW SL (19:48)
[2025-02-20 07:39] VITALS: BP 139/60; PULSE 72; RESP 16; TEMP 36.9; O2SAT 90
[2025-02-20] MEDS: Apixaban 2.5 MG TAB PO ×2 (09:20→20:11)
[2025-02-20] MEDS: LORazepam 0.5 MG TAB PO ×2 (09:20→20:11)
[2025-02-20 09:21] VITALS: PULSE 72
[2025-02-20] MEDS: Digoxin 0.125 MG TAB PO ×2 (09:21→20:10)
[2025-02-20] MEDS: risperiDONE 0.5 MG TAB PO ×2 (09:21→20:10)
[2025-02-20] MEDS: Lactobacillus Acidophilus CAP 1 CAP PO ×2 (09:21→20:10)
[2025-02-20] MEDS: Hyoscyamine 0.125 MG SL/ORAL/CHEW SL ×2 (09:21→20:10)
[2025-02-20] MEDS: Sertraline 50 MG TAB PO (09:21)
--- NOTE | 2025-02-20 10:12 | PHA.REVIEW2 ---
Pharmacy Admission Review Admission Clinical Review Admission Pharmacy Review: Hospice care patient (Acute) Frequent falls (Acute) Admission for hospice care (Acute) Breath shortness (Acute) pneumococcal 7-valent conjugate to (From Prevnar) Allergy (Mild, Verified 10/23/24 11:28) Local reaction amoxicillin trihydrate (From Augmentin) Adverse Reaction (Intermediate, Verified 10/23/24 11:28) VOMITING potassium clavulanate (From Augmentin) Adverse Reaction (Intermediate, Verified 10/23/24 11:28) VOMITING Resuscitation Status DNR/DNI Height 5 ft 2 in Pharmacy Admission Review Renal Dosing Medications needing adjustments: N/A (No recent weight on file, hospice patient) Anticoagulation DVT Prophylaxis: Reviewed Medications: Apixaban (2.5mg BID) Opiate Usage Evaluate Pain Scale/Pains Meds: Reviewed (morphine oral solution q1h PRN - no doses given) Scheduled Bowel Reg ordered if on Opiates?: No (PRN Miralax and bisacodyl) Relevant Labs Electrolytes, C-Reactive P, ESR: N/A (Hospice) Cardiac Review BP, HR, EF%: Reviewed (BP/HR WNL, Ox 90) QTc Review QTc: Reviewed (471 from 01/08/23 - most recent EKG on file) IV to PO Switch IV Medications: Reviewed Home Meds Home Med List reviewed: Reviewed Relevent Home Meds Not ordered & why?: olopatadine eye drops See pharmacy intervention note regarding digoxin dosing Current Meds Current Medication Order Review: Reviewed
--- NOTE | 2025-02-20 10:24 | PDOC.CMPRO ---
Date of service: 02/20/25 Time of Service: 10:24 Care Management Progress Note Progress Note Text Progress Note Text: Deb was awake and lying in bed when CM met with her, she greeted CM but did not engage in further communication, MELTER OPERATOR is present during this interaction, patient appears comfortable. She is currently admitted for Hospice Respite through 02/24. Transportation will be dependent on her mobility at the time of discharge. She will be going back to her home in [place] where she lives with her daughter Mimi. Her primary nurse reported concern with the length of her left great toenail, noting that it appears to be causing her discomfort. CM notified Hospice, as nursing is not permitted to perform nail care at this level. CM will follow. Discharge Potential Discharge Needs: Other (Resumption of Hospice Services) Anticipated Barriers to Discharge: Other (5 days of hospice respite, through 02/24/25) Patient/Family Education Needs: Review discharge instructions, discuss Ask Me Three Transportation: Other (Dependent on mobility) Plan: Deb is admitted for Hospice Respite through 02/24, and is planning to discharge home with resumption of Hospice services and caregiver support. Pt will follow up with Hospice providers and continue per her discharge plan of care. Social Determinants of Health Screening Will the Patient Participate in the Screening?: Unable to obtain
[2025-02-20 20:08] VITALS: BP 117/55; PULSE 75; RESP 17; TEMP 36.8; O2SAT 94
[2025-02-20] MEDS: traZODone 100 MG TAB PO (20:10)
[2025-02-20] MEDS: risperiDONE 1 MG TAB 1.5 MG PO (20:11)
[2025-02-21] MEDS: Polyethylene Glycol 3350 17 GM PACKET PO (06:35)
--- NOTE | 2025-02-21 08:33 | CMPROGNOTE_ITS ---
Date of service: 02/21/25 Time of Service: 08:33 Care Management Progress Note Progress Note Text Progress Note Text: Deb was awake and lying in bed when CM went to check in on her. She was eating lunch which required spoon feeding, FAMILY PRACTICE PHYSICIAN ASSISTANT was present. Deb is admitted to [facility] for Hospice Respite through 02/24. Transportation will be dependent on her mobility at the time of discharge. She will be going back to her home in [place] where she lives with her daughter Mimi. Discharge Potential Discharge Needs: Other (Resumption of Hospice Services) Anticipated Barriers to Discharge: None Identified Patient/Family Education Needs: Review discharge instructions, discuss Ask Me Three Transportation: Other (Dependent on mobility) Plan: Deb is admitted for Hospice Respite through 02/24, and is planning to discharge home with resumption of Hospice services and caregiver support. Will transport via private vehicle with her daughter if mobility allows. Pt will follow up with Hospice providers and continue per her discharge plan of care. CM will continue to follow and update the plan as needed. Social Determinants of Health Screening Will the Patient Participate in the Screening?: Unable to obtain
[2025-02-21] MEDS: LORazepam 0.5 MG TAB PO ×2 (14:23→19:55)
[2025-02-21 19:32] VITALS: BP 93/51; PULSE 75; RESP 16; TEMP 36.2; O2SAT 90
[2025-02-21 19:54] VITALS: PULSE 76
[2025-02-21] MEDS: Digoxin 0.125 MG TAB PO (19:54)
[2025-02-21] MEDS: Hyoscyamine 0.125 MG SL/ORAL/CHEW SL (19:54)
[2025-02-21] MEDS: risperiDONE 1 MG TAB 1.5 MG PO (19:56)
[2025-02-21] MEDS: traZODone 100 MG TAB PO (19:56)
[2025-02-21] MEDS: Lactobacillus Acidophilus CAP 1 CAP PO (19:56)
[2025-02-21] MEDS: Apixaban 2.5 MG TAB PO (19:56)
[2025-02-22] MEDS: Sertraline 50 MG TAB PO (09:41)
[2025-02-22] MEDS: risperiDONE 0.5 MG TAB PO (09:41)
[2025-02-22] MEDS: Apixaban 2.5 MG TAB PO ×2 (09:41→21:20)
[2025-02-22] MEDS: LORazepam 0.5 MG TAB PO ×2 (09:41→17:11)
[2025-02-22] MEDS: Hyoscyamine 0.125 MG SL/ORAL/CHEW SL ×3 (09:41→21:20)
[2025-02-22] MEDS: Lactobacillus Acidophilus CAP 1 CAP PO ×2 (09:41→21:20)
[2025-02-22] MEDS: Digoxin 0.125 MG TAB PO ×2 (09:41→21:19)
--- NOTE | 2025-02-22 10:26 | PDOC.CMPRO ---
Date of service: 02/22/25 Time of Service: 10:27 Care Management Progress Note Progress Note Text Progress Note Text: Deb was lying in bed when CM met with her. She was awake and alert and able to converse. When asked how she was feeling, Deb answered not very good. She denied having any pain and was not able to identify exactly what was wrong. She was not grimacing and did not appear to be uncomfortable. Deb was admitted for hospice respite on 02/19/25. She will likley be discharged back home on hospice on 02/24/25. Discharge Potential Discharge Needs: Other (hospice) Transportation: EMS Plan: Deb is admitted for Hospice Respite through 02/24, and is planning to discharge home with resumption of Hospice services and caregiver support. She will transport via private vehicle with her daughter if mobility allows. Deb will follow up with Hospice providers and continue per her discharge plan of care. CM will follow. Social Determinants of Health Screening Will the Patient Participate in the Screening?: Unable to obtain
[2025-02-22 21:19] VITALS: PULSE 67
[2025-02-22] MEDS: Acetaminophen 500 MG TAB PO (21:19)
[2025-02-22] MEDS: risperiDONE 1 MG TAB 1.5 MG PO (21:20)
[2025-02-22] MEDS: traZODone 100 MG TAB PO (21:20)
[2025-02-22 23:44] VITALS: BP 95/54; PULSE 119; RESP 16; TEMP 36.4; O2SAT 81
[2025-02-23 00:53] VITALS: O2SAT 87
[2025-02-23] MEDS: Sertraline 50 MG TAB PO (09:29)
[2025-02-23] MEDS: risperiDONE 0.5 MG TAB PO (09:29)
[2025-02-23] MEDS: Apixaban 2.5 MG TAB PO ×2 (09:29→21:32)
[2025-02-23] MEDS: LORazepam 0.5 MG TAB PO ×2 (09:29→16:25)
[2025-02-23] MEDS: Lactobacillus Acidophilus CAP 1 CAP PO ×2 (09:29→21:32)
[2025-02-23] MEDS: Hyoscyamine 0.125 MG SL/ORAL/CHEW SL ×3 (09:29→21:32)
[2025-02-23 09:30] VITALS: PULSE 69
[2025-02-23] MEDS: Digoxin 0.125 MG TAB PO ×2 (09:30→21:32)
[2025-02-23 21:32] VITALS: PULSE 76
[2025-02-23] MEDS: risperiDONE 1 MG TAB 1.5 MG PO (21:32)
[2025-02-23] MEDS: Acetaminophen 500 MG TAB PO (21:32)
[2025-02-23] MEDS: traZODone 100 MG TAB PO (21:32)
[2025-02-24 07:50] VITALS: PULSE 125; RESP 20; TEMP 36.5; O2SAT 87
[2025-02-24 07:59] VITALS: PULSE 125
[2025-02-24] MEDS: Apixaban 2.5 MG TAB PO (07:59)
[2025-02-24] MEDS: LORazepam 0.5 MG TAB PO ×2 (07:59→11:31)
[2025-02-24] MEDS: risperiDONE 0.5 MG TAB PO ×2 (07:59→11:31)
[2025-02-24] MEDS: Lactobacillus Acidophilus CAP 1 CAP PO (07:59)
[2025-02-24] MEDS: Hyoscyamine 0.125 MG SL/ORAL/CHEW SL ×2 (07:59→11:31)
[2025-02-24] MEDS: Digoxin 0.125 MG TAB PO (07:59)
[2025-02-24] MEDS: Sertraline 50 MG TAB PO (07:59)
--- NOTE | 2025-02-24 10:09 | W.PM.DS.N ---
Date of service: 02/24/25 Time of Service: 11:36 DS: Diagnosis Discharge Diagnosis (1) Unintentional weight loss: Status: Chronic (2) Frequent falls: Status: Acute (3) Admission for hospice care: Status: Acute (4) Breath shortness: Status: Acute (5) Atrial fibrillation: Status: Chronic (6) Fatigue: Status: Chronic (7) Incontinence: Status: Chronic (8) Hospice care patient: Status: Acute Discharge Plan Disposition Patient Disposition: Home W/Hospice Services Anticipated Discharge Date/Time: 02/24/25 13:00 Condition: Poor Discharge Details Reason For Visit: Weight Loss, Geriatric Frailty Admit Date/Time: 02/19/25 14:56 Admit Provider: Anna Harrison Attending Provider: Anna Harrison Primary Care Provider: Carolin Salinas [facility] Course Hospital Course: This is an 84-year-old female on hospice care primarily for protein-calorie malnutrition, along with a history of CHF, atrial fibrillation, and several other chronic conditions. She is dependent on others for all aspects of her daily care, primarily provided by her daughter Mimi. Deb' weight continues to decrease despite very low food intake (about one meal per day and snacks). Her MUAC has decreased from 22 cm to 20.5 cm in a month, and she appears more frail. She is incontinent and sleeps most of the day. Deb has experienced several falls, the most recent one occurring 3 days ago. Given the exhaustion of her caregiver, a respite stay in hospice was arranged. During her stay in hospice respite, Deb has been doing well. She remained comfortable, with her pain and discomfort effectively managed throughout her time here. There were no significant changes in her condition, and she experienced minimal distress. Her care team ensured her comfort and maintained her on her previous home medications, which helped manage her symptoms appropriately. Deb will be discharged back to her home, where she will continue her care under the supervision of her daughterMimi, and the hospice team. All medications from her home regimen have been continued, and she remains stable for discharge. Home Meds and New Rx's Prescriptions: Continued risperidone 1 mg tablet 1.5 mg PO HS Qty: 135 5RF trazodone 100 mg tablet 100 mg PO HS Qty: 90 5RF apixaban 2.5 mg tablet 2.5 mg PO BID Qty: 180 5RF Lactobacillus acidophilus 1 EACH tablet 1 ea PO BID digoxin 125 mcg (0.125 mg) tablet 0.25 mg PO DAILY Qty: 180 4RF ipratropium-albuterol 0.5 mg-3 mg(2.5 mg base)/3 mL solution for nebulization 3 ml inhalation Q6H PRN (Reason: wheezing) Qty: 90 0RF Rx Instructions: hospice Ensure High Protein Liquid 237 ml PO BID Qty: 29275 12RF Rx Instructions: dispense 60 cans sertraline 50 mg tablet 50 mg PO DAILY Qty: 90 5RF olopatadine [Pataday Twice Daily Relief] 0.1 % drops 1 drp ophthalmic (eye) BID Qty: 5 2RF Rx Instructions: separate doses by at least 6-8 hours. Hospice lorazepam 0.5 mg tablet 0.5 mg PO TID PRN Qty: 90 4RF morphine concentrate 100 mg/5 mL (20 mg/mL) solution 5 - 20 mg PO Q1-4H MDD 5 mL PRN (Reason: moderate to severe pain or shortness of breath) Qty: 30 0RF Rx Instructions: Hospice Patient bisacodyl [Dulcolax (bisacodyl)] 10 mg suppository 10 mg WA DAILY PRN (Reason: constipation) Qty: 2 3RF Rx Instructions: hospice hyoscyamine sulfate 0.125 mg tablet, sublingual 0.125 mg sublingual QID Qty: 20 2RF Rx Instructions: hospice lorazepam 1 mg tablet 1 mg PO Q4H PRN (Reason: anxiety) Qty: 6 5RF Rx Instructions: hospice haloperidol lactate 2 mg/mL concentrate 2 mg PO ONCE Qty: 15 3RF Rx Instructions: hospice prochlorperazine maleate [Compazine] 10 mg tablet 10 mg PO QID PRN (Reason: nausea and vomiting) Qty: 6 3RF Rx Instructions: hospice risperidone [Risperdal] 0.5 mg tablet 0.5 mg PO BID Qty: 180 5RF acetaminophen [Tylenol] 325 MG tablet 650 mg PO Q8H PRN PRN albuterol sulfate 90 mcg/actuation HFA aerosol inhaler 2 puff INHALATION Q4H PRN Patient Comments: INHALE 2 PUFFS BY MOUTH EVERY 4 HOURS NEEDED FOR SHORTNESS OF BREATH Discharge Instructions Stand Alone Forms: Portal Information Activity:: Activity as Tolerated Equipment/Supplies:: No Equipment Needed Diet:: As Tolerated Discharge Orders Discharge Orders: Discharge Order (Routine); Ordered 02/24/25 Ordered By: Mimi Dowd DS: Summary Time Spent with Patient providing and/or coordinating discharge services: Greater than 30 minutes Status at Discharge Functional status at discharge: bed bound Overall status at discharge: patient is back to baseline Mental Status: other (baseline) Speech and Movement: delayed speech Mood: other (baseline) Affect: indifferent Exam Narrative Exam Narrative: General: Thin, elderly female. She is pleasant but slow to respond to questions and does not appear to be in distress. HEENT: Normocephalic, atraumatic, extraocular movements intact, mucous membranes moist. Neck: Supple. Cardiovascular: Irregularly irregular rhythm, non-tachycardic, HR 7os. Respiratory: Unlabored breathing at rest. Diminished lung sounds throughout, no wheezing or rales noted. GI: Positive bowel sounds. Abdomen soft, round, non-distended, nontender. Extremities: Moves all extremities freely. Trace pitting edema noted in the left lower extremity. Psych Mental Status: other (baseline) Speech and Movement: delayed speech Mood: other (baseline) Affect: indifferent DS: Data Vitals/I&O Vitals and I&O: Vital Signs Temperature 36.5 C 02/24/25 07:50 Temperature Source Temporal Artery Scan 02/24/25 07:50 Pulse 125 H 02/24/25 07:59 Pulse Rhythm Regular 02/19/25 16:45 Respiratory Rate 20 02/24/25 07:50 Respiratory Depth Normal 02/19/25 16:45 Respiratory Pattern Normal 02/19/25 16:45 Blood Pressure 95/54 L 02/22/25 23:44 Blood Pressure Mean 67 02/22/25 23:44 Pulse Oximetry 87 L 02/24/25 07:50 Oxygen Delivery Method Room Air 02/24/25 07:50 Oxygen Flow Rate 0 02/24/25 07:50 Pain Level 0 02/21/25 19:32 Intake & Output 02/23/25 02/23/25 02/24/25 11:59 23:59 11:59 Intake Total 760 / 1237 477 / 1237 450 / 450 Balance 760 / 1237 477 / 1237 450 / 450 Intake: Oral 760 / 1237 477 / 1237 450 / 450 Other: Urine Color Yellow Pale Yellow Urine Appearance Clear Clear Urine Odor Normal Comment brief dry at thist adam pt was dry PFSH All Active Problems (Updated 02/19/25 @ 19:25 by Tatianna Tao NP) Hospice care patient (Acute) Protein calorie malnutrition (Chronic) Incontinence (Chronic) both urine and feces Fatigue (Chronic) Unintentional weight loss (Chronic) Frequent falls (Acute) Onychogryphosis (Acute) Pain in toes of both feet (Acute) Nail dystrophy (Acute) Onychomycosis (Acute) Admission for hospice care (Acute) Breath shortness (Acute) Aminah onychomycosis (Acute) Gastroenteritis (Acute) Involuntary movements (Acute) Chronic heart failure with preserved ejection fraction (HFpEF) (Acute) Atrial fibrillation (Chronic) Tubular adenoma of colon (Chronic 03/04/14) 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 with psychotic features COPD (chronic obstructive pulmonary disease) Coronary disease SBO (small bowel obstruction) Cystitis Pneumonia Fever Acute hypoxemic respiratory failure Acute and chronic respiratory failure with hypoxia Conjunctivitis Right hip pain Cognitive change RUQ abdominal pain Weight loss, abnormal (~06/11/21) 30# in last yr Bradycardia Encounter for monitoring diuretic therapy Pulmonary hypertension Congestive heart failure Tachycardia Bruit Disorder of adrenal gland Disorder of appendix (12/07/12) Elevated serum lactate dehydrogenase (LDH) History of tobacco use Palpitations Seborrheic keratosis (01/01/16) Vascular insufficiency of intestine (06/12/15) 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 02/18-09/19, normal metanephrines, normal dexamethasone suppression. History of tobacco use 100pack/years Bruit of left carotid artery mild-mod. 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 hypokalemia b. hypomagnesemia Surgical History History of bilateral ligation of fallopian tubes History of partial surgical removal of colon (09/15/14) Status post appendectomy History of partial colectomy 09/15/14 right hemicolectomy w/ileocolic anastomosis Ligation of fallopian tube Hemicolectomy [facility]; 09/15/14; RIGHT Colectomy (09/18/14) DR. GRAJEDA Biopsy, Soft Tissue (01/01/16) Punch/shave biospy of skin of left arm, seborrheic keratosis Appendectomy S/P tubal ligation S/P AAA repair Family History Mother Essential hypertension Alzheimer's disease Father Heart disease Breast cancer Prostate cancer Sister Myocardial infarction Sister Myocardial infarction Brother Cancer Sister No problems noted. Sister No problems noted. Brother Substance abuse Brother Substance abuse Brother Substance abuse Cancer Son No problems noted. Daughter No problems noted. Social History Smoking/Tobacco Use Status: Former Tobacco Use Quit Date: 03/14/12 Tobacco: How many years used: 50 Smoking risk assessment performed?: Yes Alcohol Intake: never Drug use: Never Substance use type: does not use Caregiver/Support person: Yes Household members: children Housing: house Number of Children: 2 Communication Needs: Hard of Hearing Do you need help understanding health information?: Always Pets and animals: Yes Pets and animals: cat(s) and dog(s) Current gender identity: decline to answer How often do you talk on the phone with friends or family?: never How often do you get together with friends or relatives?: twice per week Panel score (0-1 are the most socially isolated patients): 0 What type of physical activity do you participate in: none Lelo/Rastafarian: No preference Special lelo needs: No Fire extinguisher in home: Yes Do you feel safe at home: Yes Do you feel safe in your relationship?: Yes Additional Social history: Deb lives with daughter Mimi, who is her health care agent. Mimi gets some support from hospice team, but provides majority of care. Time Spent with Patient Time Spent with Patient: 45-69 minutes Time was spent: preparing to see the patient(eg.review tests), ordering medications,tests, procedures, referring, communicating with other health customer care team coach, indepentently interpreting results, counseling the patient and care coordination
--- NOTE | 2025-02-24 16:01 | PDOC.CMDIS ---
Date of service: 02/24/25 Time of Service: 16:02 LACE Index Scoring Tool Questions: Length of Stay (in days): 4 - 6 Was the patient admitted via the E.D.?: No Comorbidities: Congestive Heart Failure E.D. Visits: 0 Answers: Total Score: 6 Risk of Readmission: Low Risk Care Management Discharge Plan Reason for Hospitalization: hospice respite Discharge Plan: Deb was discharged home with a resumption of her hospice services and support. She was transported by her daughter. Patient/Family Education Needs: expectations, limitations Services Needed at Discharge: Home Health Care Services
== END 2025-02-24 13:09 | disposition hospice, home (50) | DRG 641 ==
LOC: MS 02-20 07:27 → MSD 02-20 07:31 → MS 02-20 07:31
PROVIDERS: Admitting Provider Family Medicine; PCP Family Medicine; Visit Provider Family Medicine
DX: R63.4 Abnormal weight loss (principal); E46 Unspecified protein-calorie malnutrition; I50.22 Chronic systolic (congestive) heart failure; F32.3 Major depressive disorder, single episode, severe with psychotic features; K55.1 Chronic vascular disorders of intestine; I47.10 Supraventricular tachycardia, unspecified; Z51.5 Encounter for palliative care; R29.6 Repeated falls; Z75.5 Holiday relief care; R06.02 Shortness of breath; I48.91 Unspecified atrial fibrillation; R53.83 Other fatigue; R32 Unspecified urinary incontinence; B35.1 Tinea unguium; F41.9 Anxiety disorder, unspecified; I11.0 Hypertensive heart disease with heart failure; K75.81 Nonalcoholic steatohepatitis (NASH); J44.9 Chronic obstructive pulmonary disease, unspecified; I25.10 Atherosclerotic heart disease of native coronary artery without angina pectoris; R00.1 Bradycardia, unspecified; Z87.891 Personal history of nicotine dependence; E78.5 Hyperlipidemia, unspecified; Z86.73 Personal history of transient ischemic attack (TIA), and cerebral infarction without residual deficits; Z79.899 Other long term (current) drug therapy; Z79.01 Long term (current) use of anticoagulants
CPT/HCPCS: 00123; J3490